=== PATIENT | female | born 1965 | race Caucasian/White ===

== ENCOUNTER → 2017-03-27 | Outpatient (CLI) | payer OTHER, BC ==
--- NOTE | 2017-03-27 22:29 | CONS ---
CONSULTATION This is a very pleasant, 51-year-old female patient. 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 The patient is concerned about sleep apnea. She was diagnosed having sleep apnea, many years back through a sleep center that was done in [facility]. At that time the patient used to weigh around 180 pounds and she underwent bariatric surgery. Back then she was being treated with a CPAP pressure of 11 cm of water and as the patient lost weight the CPAP pressure was dropped down to 7 and then 5 and at one point she was told to have some central events and she ended up quitting the treatment. Note that the patient was able to lose significant amount of weight following her bariatric surgery/gastric sleeve and she was down to 185. Over the years she gradually started gaining weight and she is currently up to 216. Some of the symptoms of obstructive sleep apnea is back and the patient is coming in for a reevaluation. She is snoring and she is having some increased fatigue and tiredness and sleepiness during the day. She is waking up with some dry mouth. Her current [place] score is at 10. She is able to drive back and forth to [place] without having to fall asleep. No history of any motor vehicle accidents because of feeling sleepy or tired. Denies waking up in the middle of the night gasping for air. Occasional palpitation and the patient is currently under investigation with Dr. Singh. The patient is wearing a Holter monitor. She has been given diagnosis of cardiomyopathy and her current ejection fraction of 45%. She also has bronchial asthma under the care of Dr. Quiñones and she was switched to Xopenex regarding her underlying tachycardia and she is on a combination of Flovent and Singulair. PAST MEDICAL HISTORY: 1. Spinal stenosis. Recent spinal lumbar fusion and decompression, this was done at [facility]. 2. Obesity. 3. Previous bariatric surgery/gastric sleeve. Details discussed above. 4. Cardiac arrhythmia/tachycardia under investigation. 5. Cardiomyopathy with ejection fraction 45%. 6. Chronic bronchial asthma. SURGICAL HISTORY: 1. Includes gastric sleeve surgery in 2012. 2. Hysterectomy and appendectomy in 2011. 3. Spinal fusion L4-L5-S1 2016. 4. 1991. DRUG ALLERGIES: NONSTEROIDAL ANTI-INFLAMMATORY AND CIPRO AND DILAUDID SHE ALSO HAS GLUTEN IN [place] ALLERGY MEDICATIONS: Outpatient medication list includes: Flovent 2 puffs twice a day, Flonase singular 10 mg p.o. daily. Xopenex HFA on a p.r.n. basis and vitamin D 5000 units 1 pill daily. SOCIAL HISTORY: Nonsmoker. No history of alcohol. No history of IV drugs. FAMILY HISTORY: Negative for sleep apnea. REVIEW OF SYSTEMS: 12-point review of system was done. Positive findings are mentioned above in the history of present illness. Weight changes have been noted. No sleep paralysis. No hallucinations. No cataplexy. She has some occasional dream like images. However these glove turner to be somewhat dreams upon waking up from bed. She goes to bed around 10:30 pm, wakes up 6:00 am in the morning. She is able to fulfill her job requirements and she does not fall asleep during work or regular meetings. No anxiety. No depression. No heartburn. No panic attacks. She has history of dry mouth with the use of CPAP. No restlessness in lower extremities. PHYSICAL EXAMINATION: BP is 127/75, pulse 85, respirations 81, temperature 98.6 saturation 98% on room air. Weight is 269. Height is 5 0. [place] score 10, neck size 15.5 inches, BMI 42.1. GENERAL APPEARANCE: Calm comfortable. HEENT is atraumatic normocephalic. NECK: Supple. Mallampati class 3. No goiter or neck masses. Slight overbite. LUNGS: Clear to auscultation. HEART: Sounds are regular. Normal S1, S2. No S3. No murmurs. ABDOMEN: Soft, nontender. No organomegaly. EXTREMITIES: No edema. No cyanosis or clubbing. NEUROLOGIC: Alert and oriented x3. No focal neurological deficits. PSYCHIATRIC: Negative for anxiety or depression. IMPRESSION: 1. Obstructive sleep apnea. This is clinically suspected. The patient had significant ITZ and she was treated with CPAP in the past. Following bariatric surgery the patient lost approximately 100 pounds and she was able to get herself off the CPAP. Currently she is coming in for reevaluation knowing that she has gained some weight. Her current BMI is 42, and she is concerned that her sleep apnea is back. 2. Chronic sleepiness [place] score 10. 3. Chronic fatigue. 4. Sinus tachycardia with questionable palpitations under investigation currently wearing a Holter monitor. 5. Congestive heart failure with an EF around 45%. 6. Bronchial asthma. 7. Spinal fusion with decompression for lumbar stenosis. PLAN: 1. Encourage further weight loss. 2. Proceed with a screening polysomnogram to assess for any residual obstructive sleep apnea and treat accordingly. LASHELL / CATARINAN: [id number] /
== END | disposition home or self-care (01) ==
LOC: SLEEP 13:04
PROVIDERS: ATTEND Internal Medicine Critical Care Medicine
DX: G47.33 Obstructive sleep apnea (adult) (pediatric) (principal); G47.10 Hypersomnia, unspecified; R53.82 Chronic fatigue, unspecified; R00.0 Tachycardia, unspecified; I50.9 Heart failure, unspecified; J45.909 Unspecified asthma, uncomplicated; M48.061 Spinal stenosis, lumbar region without neurogenic claudication; E66.9 Obesity, unspecified; Z68.41 Body mass index [BMI] 40.0-44.9, adult; Z98.1 Arthrodesis status; Z79.899 Other long term (current) drug therapy; Z88.1 Allergy status to other antibiotic agents; Z88.5 Allergy status to narcotic agent; Z91.018 Allergy to other foods
CPT/HCPCS: 99211

== ENCOUNTER → 2017-04-06 | Outpatient (CLI) | payer OTHER, BC ==
--- NOTE | 2017-04-18 11:27 | MM ---
Reason for exam: screening (asymptomatic). Last mammogram was performed 1 year and 3 months ago. History: Took hormonal contraceptives for 3 years beginning at age 20. Physical Findings: A clinical breast exam by your physician is recommended on an annual basis and results should be correlated with mammographic findings. MG 3D Screening Mammo W/Cad Bilateral CC and MLO view(s) were taken. Prior study comparison: December 31, 2015, mammogram. March 20, 2011, bilateral digital screening mammo w/CAD. March 08, 2010, bilateral diagnostic digital mammog. There are scattered fibroglandular densities. There is a stable 4mm mass right upper outer quadrant at middle depth back to 2010. No suspicious abnormality. No significant changes when compared with prior studies. ASSESSMENT: Benign, BI-RAD 2 RECOMMENDATION: Routine screening mammogram of both breasts in 1 year.
== END | disposition home or self-care (01) ==
LOC: RADMAMWWP 14:47
PROVIDERS: ATTEND Family Medicine
DX: Z12.31 Encounter for screening mammogram for malignant neoplasm of breast (principal)
CPT/HCPCS: 77063; 77067

== ENCOUNTER 2017-04-16 03:43 | Observation (INO) | payer OTHER, BC ==
[2017-04-16] MEDS ORDERED: IPRATROPIUM-ALBUTEROL 3 ML NEB INHALATION STA (04:06)
[2017-04-16] MEDS ORDERED: ALBUTEROL NEBULIZED 2.5 MG/3 ML INHALATION STA ×3 (04:07→07:01)
--- NOTE | 2017-04-16 04:29 | ED ---
SOB HPI - General Chief Complaint: Shortness of Breath Stated Complaint: ASTHMA Time Seen by Provider: 04/16/17 03:53 Source: patient Mode of arrival: wheelchair Limitations: no limitations - History of Present Illness Initial Comments: This patient is a 51-year-old woman who presents with complaint of cough and dyspnea. She states that about a day ago she started having some upper respiratory symptoms, including rhinorrhea and congestion. She was also having a little bit of cough. Tonight between 10 and 11 she started having worsening of shortness of breath. She states that she tried to take her home inhaled medications and that they weren't giving her much improvement so she presents here for evaluation. Patient denies fever or chills. She is not having chest pain. MD Complaint: shortness of breath, cough Onset/Timin -: hour(s) Severity: moderate Consistency: constant Improves With: nothing Worsens With: coughing Known History Of: asthma Associated Symptoms: cough Treatments Prior to Arrival: bronchodilator - Related Data Home Medications Medication Instructions Recorded Confirmed Cholecalciferol [Vitamin D3] 5,000 unit PO DAILY 04/16/17 04/16/17 Fluticasone Nasal [place] [Flonase 2 spray EA NOSTRIL BID 04/16/17 04/16/17 Nasal [place]] Fluticasone Propionate [Flovent 2 puff INHALATION RT-BID 04/16/17 04/16/17 Hfa 110mcg] Levalbuterol Tartrate [Xopenex Hfa 2 puff INHALATION RT-QID PRN 04/16/17 Inhaler] Montelukast [Singulair] 10 mg PO HS 04/16/17 04/16/17 Allergies Allergy/AdvReac Type Severity Reaction Status Date / Time ciprofloxacin Allergy Itching Verified 04/16/17 07:43 hydromorphone [From Dilaudid] AdvReac Nausea & Verified 04/16/17 07:43 Vomiting NSAIDS (Non-Steroidal AdvReac Abdominal Verified 04/16/17 07:43 Anti-Inflamma Pain shellfish derived AdvReac Nausea & Verified 04/16/17 07:43 Vomiting Review of Systems ROS Statement: Those systems with pertinent positive or pertinent negative responses have been documented in the HPI. ROS Other: All systems not noted in ROS Statement are negative. Constitutional: Denies: fever, chills ENT: Reports: congestion Respiratory: Reports: cough, dyspnea, wheezes. Denies: hemoptysis Cardiovascular: Denies: chest pain, palpitations, dyspnea on exertion, orthopnea , edema, syncope Gastrointestinal: Denies: abdominal pain, nausea, vomiting Neurological: Denies: headache Past Medical History Past Medical History: Asthma, Osteoarthritis (OA) Additional Past Medical History / Comment(s): cardiomyopathy. tachycardia. History of Any Multi-Drug Resistant Organisms: None Reported Past Surgical History: Section, Hysterectomy Additional Past Surgical History / Comment(s): gastric sleeve. spinal fusion. bilateral shoulders. Past Psychological History: Depression Smoking Status: Never smoker Past Alcohol Use History: Occasional Past Drug Use History: None Reported General Exam Limitations: no limitations General appearance: alert, in no apparent distress Head exam: Present: atraumatic, normocephalic Eye exam: Present: normal appearance. Absent: scleral icterus, conjunctival injection ENT exam: Present: normal oropharynx Respiratory exam: Present: respiratory distress (Tachypnea), wheezes. Absent: rales, rhonchi, stridor, accessory muscle use, decreased breath sounds, prolonged expiratory Cardiovascular Exam: Present: regular rate, normal rhythm, normal heart sounds. Absent: systolic murmur, diastolic murmur, rubs, gallop GI/Abdominal exam: Present: soft. Absent: distended, tenderness, guarding, rebound, mass Extremities exam: Present: normal inspection, normal capillary refill. Absent: pedal edema, calf tenderness Back exam: Present: normal inspection. Absent: CVA tenderness (R), CVA tenderness (L) Neurological exam: Present: alert Skin exam: Present: warm, dry, intact, normal color. Absent: rash Course Vital Signs 04/16/17 04/16/17 04/16/17 03:46 04:04 04:14 Temperature 98 F Pulse Rate 90 100 96 Respiratory 36 H Rate Blood Pressure 173/107 O2 Sat by Pulse 100 Oximetry 04/16/17 04/16/17 04/16/17 05:48 06:20 06:25 Temperature Pulse Rate 82 78 84 Respiratory 26 H Rate Blood Pressure 149/77 O2 Sat by Pulse 99 Oximetry 04/16/17 04/16/17 04/16/17 06:28 07:04 07:14 Temperature Pulse Rate 90 88 83 Respiratory 19 Rate Blood Pressure 169/93 O2 Sat by Pulse 99 Oximetry Medical Decision Making - Medical Decision Making This patient is a 51-year-old woman with asthma having an exacerbation. She has had some improvement following treatments but is not near her baseline. It is the shift change and I have paged the [facility] hospitalist group without yet hearing back. Disposition Clinical Impression: Asthma with exacerbation Disposition: ADMITTED IP TO THIS [facility] Condition: Fair Referrals: Radha Mcmillan MD [Primary Care Provider] - 1-2 days
--- NOTE | 2017-04-16 05:41 | XR ---
EXAM: XR Chest, 2 Views CLINICAL HISTORY: ITS.REASON XR Reason: cough TECHNIQUE: Frontal and lateral views of the chest. COMPARISON: None. FINDINGS: Lungs: Unremarkable. The lungs are clear. Pleural space: Unremarkable. No pneumothorax. Heart: Unremarkable. No cardiomegaly. Mediastinum: Unremarkable. Bones/joints: Unremarkable. IMPRESSION: Normal chest x-rays.
[2017-04-16] MEDS ORDERED: predniSONE 20 MG TAB PO STA (05:48)
[2017-04-16] MEDS ORDERED: SODIUM CHLORIDE 0.9% 500 ML IV STA (07:22)
[2017-04-16] MEDS ORDERED: ALBUTEROL NEBULIZED 2.5 MG/3 ML INHALATION PRN (07:50)
[2017-04-16 07:59] LABS: Anisocytosis Slight; Basophils % (A) 0 %; Eosinophils % (A) 0 %; HCT 36.2 % (34.0-46.0); Hypochromasia Marked; Lymphocytes # (A) 1.1 k/uL (1.0-4.8); Lymphocytes % (A) 18 %; MCH 23.5 pg (25.0-35.0); MCHC 30.3 g/dL (31.0-37.0); MCV 77.6 fL (80.0-100.0); Mean Platelet Volume 6.8; Microcytosis Slight; Monocytes # (A) 0.2 k/uL (0-1.0); Monocytes % (A) 3 %; Neutrophils # (A) 4.6 k/uL (1.3-7.7); Neutrophils % (A) 76 %; Platelet Count 211 k/uL (150-450); RBC 4.67 m/uL (3.80-5.40); RDW 16.4 % (11.5-15.5); WBC 6.1 k/uL (3.8-10.6)
[2017-04-16] MEDS ORDERED: IPRATROPIUM-ALBUTEROL 3 ML NEB INHALATION SCH (08:00)
[2017-04-16 08:13] LABS: ALT 19 U/L (9-52); AST 22 U/L (14-36); Albumin 4.5 g/dL (3.5-5.0); Alkaline Phosphatase 100 U/L (38-126); Anion Gap 14 mmol/L; Blood Urea Nitrogen 11 mg/dL (7-17); Calcium 9.8 mg/dL (8.4-10.2); Carbon Dioxide 26 mmol/L (22-30); Chloride 107 mmol/L (98-107); Glucose 111 mg/dL (74-99); Potassium 3.4 mmol/L (3.5-5.1); Sodium 147 mmol/L (137-145); Total Bilirubin 0.2 mg/dL (0.2-1.3); Total Protein 7.7 g/dL (6.3-8.2)
[2017-04-16] MEDS ORDERED: BUDESONIDE 0.5 MG/2 ML NEBU INHALATION SCH (09:00)
[2017-04-16] MEDS ORDERED: POTASSIUM CHLORIDE ER 20 MEQ TAB.ER PO STA (09:39)
[2017-04-16] MEDS: BUDESONIDE 1 MG/2 ML NEBU INHALATION SCH ×2 (09:42→19:48)
--- NOTE | 2017-04-16 10:01 | P.HPIM ---
History of Present Illness H&P Date: 04/16/17 Chief Complaint: shortness of breath Patient is a 51-year-old female with a past medical history of asthma , obesity, tachycardia, and arthritis who presented to the ER with complaints of shortness of breath. In the ER she underwent an extensive evaluation. On arrival she was found to be hypertensive, tachycardic, and tachypnea. Laboratory analysis showed a slightly low potassium of 3.4 and hemoglobin of 11 but was otherwise unremarkable. Chest x-ray revealed no acute process. EKG revealed sinus tachycardia. She was given a dose of prednisone 3 [id number] breathing treatments without significant relief. Therefore she is admitted as observation. Patient seen and examined at bedside. She states that she has had symptoms of a cold with cough, runny nose, stuffy nose for the last 2 days. Last night she woke up and felt tight and wheezy in her chest. She took a dose of her Xopenex without relief and therefore took a dose of albuterol. This still did not provide relief and she took a second inhaler approximately 2 hours later. She then continued to get worsening short of breath and decided to present to the emergency department. She reports that she has a history of palpitations and was recently switched from albuterol to Xopenex inhaler to help with this. She also takes Flovent and Singulair at home. She has been using Flonase as well. She did use some [id number] Sudafed. She has no history of high blood pressure and her blood pressure is usually on the low side. She recently saw Dr. Quiñones on Sunday and did not have any adjustments in her medications and was doing well at that time. She is requesting to see him regarding her asthma. She has been struggling with persistent tachycardia for the last year. She has a history of an ejection fraction of 45% which has since resolved to 60%. She is also following with Dr. Singh and recently had a Holter monitor done and is awaiting results of the new echo. She has not had any other medication changes recently. She does not have a nebulizer at home that she is never needed to use one in the past. She has never been hospitalized for her asthma prior. Review of Systems General: no fever/chills, no rigors, + weight gain, no unusual fatigue Eyes: no noticable visual changes, no loss of vision ENT: + rhinorrhea, + congestion, no sore throat Cardiovascular: no chest pain, + palpitations], no preyncope/syncope, no edema Pulmonary: + shortness of breath, + wheezing, + cough Abdominal: no abdominal pain, no constipation, no diarrhea, no vomiting, no nausea Genitourinary: no dysuria, no urinary frequency, no unusual discharge/odor Neuro: no unusual paresthesias, no unusual paresis/paralysis, no headache Dermatologic: no unusual rashes, no unusual lesions, no unusual changes in nails Hematologic: no hemoptysis, no hematuria, no melena/hematochezia Psychiatric: no changes in mood or behaviors, no changes in sleep pattern Past Medical History Past Medical History: Asthma, Osteoarthritis (OA), Thyroid Disorder Additional Past Medical History / Comment(s): Cardiomyopathy about 1 year ago EF was 45%,then 60%-pt states she has had a recent echo and 24 hour quality assurance monitor body placed, occasional tachycardia especially after eating, treated for influenza a month ago with tamiflu/abx and couple weeks ago had R earache tx with flonase, ITZ with CPAP use in past then lost weight and no longer needed cpap- has PSG scheduled, pt states recent near syncope when she had the flu and with a dental procedure-checked fitbit and heart rate in 50s, thyroid nodules with neg bx. Spinal stenosis. Gluten sensitivity. Vitamin D deficiency. History of Any Multi-Drug Resistant Organisms: None Reported Past Surgical History: Appendectomy, Bariatric Surgery, Section, Hysterectomy, Orthopedic Surgery, Tonsillectomy Additional Past Surgical History / Comment(s): 2012 gastric sleeve, 11/2016 spinal fusion/decompression L4-L5 and S1, bilateral shcoulder arthroscopies, 3 laparotomies d/t pain/ovarian cyst/adhesions, hysterectomy with R oophorectomy, 2 D&Cs after miscarriages. Lipoma removed from left side of back. Cardiac cath. Past Anesthesia/Blood Transfusion Reactions: Motion Sickness, Postoperative Nausea & Vomiting (PONV) Additional Psychological History / Comment(s): Pt resides with her spouse. She is independent. Smoking Status: Never smoker Past Alcohol Use History: Rare Past Drug Use History: None Reported - Past Family History Father Family Medical History: Cancer, Diabetes Mellitus, Renal Disease Additional Family Medical History / Comment(s): Father is from kidney failure d/t diabetes. Mother Family Medical History: Coronary Artery Disease (CAD), Diabetes Mellitus, Thyroid Disorder Additional Family Medical History / Comment(s): Mother has had multiple MIs with first one at about age 72 yrs. She has had CABG and has 5 cardiac stents. Medications and Allergies Home Medications Medication Instructions Recorded Confirmed Type Cholecalciferol [Vitamin D3] 5,000 unit PO DAILY 04/16/17 04/16/17 History Fluticasone Nasal [place] [Flonase 2 spray EA NOSTRIL BID 04/16/17 04/16/17 History Nasal [place]] Fluticasone Propionate [Flovent 2 puff INHALATION RT-BID 04/16/17 04/16/17 History Hfa 110mcg] Levalbuterol Tartrate [Xopenex Hfa 2 puff INHALATION RT-QID PRN 04/16/17 History Inhaler] Montelukast [Singulair] 10 mg PO HS 04/16/17 04/16/17 History Allergies Allergy/AdvReac Type Severity Reaction Status Date / Time ciprofloxacin Allergy Itching Verified 04/16/17 07:43 hydromorphone [From Dilaudid] AdvReac Nausea & Verified 04/16/17 07:43 Vomiting NSAIDS (Non-Steroidal AdvReac Abdominal Verified 04/16/17 07:43 Anti-Inflamma Pain shellfish derived AdvReac Nausea & Verified 04/16/17 07:43 Vomiting Physical Exam Osteopathic Statement: *. No significant issues noted on an osteopathic structural exam other than those noted in the History and Physical/Consult. Vitals: Vital Signs Temp Pulse Resp BP Pulse Ox 04/16/17 09:43 86 04/16/17 09:00 98.2 F 83 20 118/62 98 04/16/17 08:00 89 20 154/88 99 04/16/17 07:14 83 04/16/17 07:04 88 04/16/17 06:28 90 19 169/93 99 04/16/17 06:25 84 04/16/17 06:20 78 04/16/17 05:48 82 26 H 149/77 99 04/16/17 04:14 96 04/16/17 04:04 100 04/16/17 03:46 98 F 90 36 H 173/107 100 Intake and Output 04/15/17 04/16/17 04/16/17 22:59 06:59 14:59 Other: Weight 97.522 kg General: non toxic, mild distress, appears at stated age, obese Derm: no unusual rashes/lesions no unusual ecchymoses, warm, dry Head: atraumatic, normocephalic, symmetric Eyes: EOMI, no lid lag, anicteric sclera, pupils equal round reactive to light ENT: Nose and ears atraumatic, no thrush, no pharyngeal erythema Neck: No thyromegaly, no cervical lymphadenopathy, trachea midline, supple Mouth: no lip lesion, mucus membranes moist Cardiovascular: S1S2 reg, no murmur, positive posterior tibial pulse bilateral, no edema, capillary refill less than 2 seconds Lungs: Faint wheezes bilaterally, no rhonchi, no rales , no accessory muscle use Abdominal: soft, nontender to palpation, no guarding, no appreciable organomegaly, normal bowel sounds Ext: no gross muscle atrophy, muscle strength grossly intact all 4 extremities , no contractures, Neuro: CN II-XI grossly intact, light touch intact all 4 extremities Psych: Alert, oriented, appropriate affect Results CBC & Chem 7: 04/16/17 07:40 04/16/17 07:40 Labs: Abnormal Lab Results - Last 24 Hours (Table) 04/16/17 04/16/17 04/16/17 Range/Units 07:40 07:40 07:40 Hgb 11.0 L (11.4-16.0) gm/dL MCV 77.6 L (80.0-100.0) fL MCH 23.5 L (25.0-35.0) pg MCHC 30.3 L (31.0-37.0) g/dL RDW 16.4 H (11.5-15.5) % D-Dimer 0.74 H (<0.60) mg/L FEU Sodium 147 H (137-145) mmol/L Potassium 3.4 L (3.5-5.1) mmol/L Glucose 111 H (74-99) mg/dL Chest x-ray: report reviewed Thrombosis Risk Factor Assmnt - DVT/VTE Prophylaxis DVT/VTE Prophylaxis: Low risk, early ambulation encouraged - Choose All That Apply Any of the Below Risk Factors Present?: Yes Each Factor Represents 1 point: Age 41-60 years, Obesity (BMI >25) Other Risk Factors: No Other congenital or acquired thrombophilia - If yes, enter type in comment: No Thrombosis Risk Factor Assessment Total Risk Factor Score: 2 Thrombosis Risk Factor Assessment Level: Low Risk Assessment and Plan Assessment: Acute exacerbation of asthma -Scheduled and when necessary albuterol -Change Flovent to nebulized budesonide during hospitalization -Continue with Singulair -Flonase -Consult pulmonary -Does not appear to have an indication for antibiotic at this time with minimally productive cough for 2 days duration Hypernatremia secondary to dehydration -IV fluids -Repeat basic metabolic profile in a.m. History of tachycardia -Telemetry monitoring with albuterol used -Continue outpatient follow-up with Dr. Singh Hypokalemia -Replacement -Repeat in a.m. Microcytic anemia -Check iron studies -Further outpatient follow-up Morbid obesity -Structured outpatient weight loss History of obstructive sleep apnea -Has PSG schedule as outpatient with Dr. Johnson Gluten sensitivity -Gluten-free diet Surrogate decision-maker: , Ruben CODE STATUS: Full DVT prophylaxis: Early ambulation Discussed with: Patient, Nursing, ED physician Anticipated discharge: [address]: Home A total of 50 minutes was spent on the care of this complex patient more than 50 % of the time was spent in counseling and care coordination.
[2017-04-16 11:06] VITALS: RESP 18
[2017-04-16] MEDS: SODIUM CHLORIDE 0.9% 1,000 ML IV SCH ×2 (11:09→20:17)
[2017-04-16] MEDS: FLUTICASONE 50MCG/SPRAY NASAL 16GM EA NOSTRIL SCH ×2 (11:09→20:17)
[2017-04-16] MEDS ORDERED: CHOLECALCIFEROL 1,000 UNIT TAB PO SCH (12:00)
[2017-04-16] MEDS: ALBUTEROL NEBULIZED 2.5 MG/3 ML INHALATION SCH ×3 (13:56→19:48)
[2017-04-16] MEDS ORDERED: PANTOPRAZOLE 40 MG TABLET PO STA (15:48)
[2017-04-16 15:56] LABS: Iron Saturation 2.52 (12.00-45.00)
--- NOTE | 2017-04-16 16:45 | P.CNPUL ---
History of Present Illness Consult date: 04/16/17 Requesting physician: Kierra Alvarez Reason for consult: dyspnea, cough, chest pain, asthma Chief complaint: Dyspnea, cough, chest tightness, chest congestion History of present illness: Adilene is a 51-year-old white female patient of Dr. Radha Mcmillan the presented to the emergency department with a complaint of increasing dyspnea, chest congestion, chest tightness despite her using her rescue inhaler multiple times at home. She saw Dr. Quiñones in the office on Sunday for a regular checkup at which time she was doing good, without any active pulmonary complaints. Patient's Symbicort have been switched over to Flovent HFA 2 puffs twice a day related to her tachycardia, and mouth and throat irritation from the Symbicort. Patient is also on Singulair 10 mg at bedtime, and Xopenex HFA inhaler on as- needed basis. Patient states she woke up on Sunday night after she felt she was getting a cold. On Sunday morning her symptoms had progressed and she started getting increased chest congestion. On Sunday night she woke up at 11 PM with chest tightness, increased chest congestion, cough, and increasing dyspnea. She denied any fever, or chills. Her rescue inhaler did not give her much relief, she had also been taking [id number] Sudafed for nasal congestion. In the emergency department patient was tachycardic with a heart rate of 100 BPM, hypertensive with BP of 173/107 and tachypnea with respiratory rate of 36. Chest x-ray revealed no acute process. EKG showed sinus tachycardia. Lab work showed normal white count of 6.1, hemoglobin of 11.0, d- dimer of 0.74, serum sodium of 147, serum potassium is 3.4, BUN of 11, creatinine is 0.68, troponin and BNP were within normal limits. Her other medical history includes cardiomyopathy with an ejection fraction of 40-45%, obstructive sleep apnea with past use of CPAP, gastric sleeve bariatric surgery , spinal stenosis, cardiac arrhythmia/tachycardia under investigation. Patient was started on prednisone 60 mg daily, Pulmicort, albuterol, she was given 1 L of 0.9 normal saline IV bolus and was admitted to the observation unit. Review of Systems All systems: negative Constitutional: Denies chills, Denies fever Eyes: denies blurred vision, denies pain Ears, nose, mouth and throat: Denies headache, Denies sore throat Cardiovascular: Denies chest pain, Denies shortness of breath Respiratory: Denies cough Gastrointestinal: Denies abdominal pain, Denies diarrhea, Denies nausea, Denies vomiting Genitourinary: Denies dysuria, Denies hematuria Musculoskeletal: Denies myalgias Integumentary: Denies pruritus, Denies rash Neurological: Denies numbness, Denies weakness Psychiatric: Denies anxiety, Denies depression Endocrine: Denies fatigue, Denies weight change Past Medical History Past Medical History: Asthma, Osteoarthritis (OA), Thyroid Disorder Additional Past Medical History / Comment(s): Cardiomyopathy about 1 year ago EF was 45%,then 60%-pt states she has had a recent echo and 24 hour site monitor placed, occasional tachycardia especially after eating, treated for influenza a month ago with tamiflu/abx and couple weeks ago had R earache tx with flonase, ITZ with CPAP use in past then lost weight and no longer needed cpap- has PSG scheduled, pt states recent near syncope when she had the flu and with a dental procedure-checked fitbit and heart rate in 50s, thyroid nodules with neg bx. Spinal stenosis. Gluten sensitivity. Vitamin D deficiency. History of Any Multi-Drug Resistant Organisms: None Reported Past Surgical History: Appendectomy, Bariatric Surgery, Section, Hysterectomy, Orthopedic Surgery, Tonsillectomy Additional Past Surgical History / Comment(s): 2012 gastric sleeve, 11/2016 spinal fusion/decompression L4-L5 and S1, bilateral shcoulder arthroscopies, 3 laparotomies d/t pain/ovarian cyst/adhesions, hysterectomy with R oophorectomy, 2 D&Cs after miscarriages. Lipoma removed from left side of back. Cardiac cath. Past Anesthesia/Blood Transfusion Reactions: Motion Sickness, Postoperative Nausea & Vomiting (PONV) Additional Psychological History / Comment(s): Pt resides with her spouse. She is independent. Smoking Status: Never smoker Past Alcohol Use History: Rare Past Drug Use History: None Reported - Past Family History Father Family Medical History: Cancer, Diabetes Mellitus, Renal Disease Additional Family Medical History / Comment(s): Father is from kidney failure d/t diabetes. Mother Family Medical History: Coronary Artery Disease (CAD), Diabetes Mellitus, Thyroid Disorder Additional Family Medical History / Comment(s): Mother has had multiple MIs with first one at about age 72 yrs. She has had CABG and has 5 cardiac stents. Medications and Allergies Home Medications Medication Instructions Recorded Confirmed Type Cholecalciferol [Vitamin D3] 5,000 unit PO DAILY 04/16/17 04/16/17 History Fluticasone Nasal [place] [Flonase 2 spray EA NOSTRIL BID 04/16/17 04/16/17 History Nasal [place]] Fluticasone Propionate [Flovent 2 puff INHALATION RT-BID 04/16/17 04/16/17 History Hfa 110mcg] Levalbuterol Tartrate [Xopenex Hfa 2 puff INHALATION RT-QID PRN 04/16/17 History Inhaler] Montelukast [Singulair] 10 mg PO HS 04/16/17 04/16/17 History Allergies Allergy/AdvReac Type Severity Reaction Status Date / Time ciprofloxacin Allergy Itching Verified 04/16/17 07:43 hydromorphone [From Dilaudid] AdvReac Nausea & Verified 04/16/17 07:43 Vomiting NSAIDS (Non-Steroidal AdvReac Abdominal Verified 04/16/17 07:43 Anti-Inflamma Pain shellfish derived AdvReac Nausea & Verified 04/16/17 07:43 Vomiting Physical Exam Vitals: Vital Signs Temp Pulse Pulse Resp BP BP Pulse Ox 04/16/17 15:41 98.3 F 108 H 18 135/64 96 04/16/17 14:03 85 04/16/17 13:57 85 04/16/17 11:05 97.7 F 107 H 18 153/85 98 04/16/17 10:02 88 04/16/17 10:00 98.2 F 100 20 120/55 98 04/16/17 09:43 86 04/16/17 09:00 98.2 F 83 20 118/62 98 04/16/17 08:00 89 20 154/88 99 04/16/17 07:14 83 04/16/17 07:04 88 04/16/17 06:28 90 19 169/93 99 04/16/17 06:25 84 04/16/17 06:20 78 04/16/17 05:48 82 26 H 149/77 99 04/16/17 04:14 96 04/16/17 04:04 100 02/19/18 03:46 98 F 90 36 H 173/107 100 Intake and Output 04/16/17 04/16/17 04/16/17 06:59 14:59 22:59 Other: Weight 97.522 kg GENERAL EXAM: Alert, pleasant, 51-year-old obese white female, comfortable in no apparent distress. HEAD: Normocephalic/atraumatic. EYES: Normal reaction of pupils, equal size. Conjunctiva pink, sclera white. NOSE: Clear with pink turbinates. THROAT: No erythema or exudates. NECK: No masses, no JVD, no thyroid enlargement, no adenopathy. CHEST: No chest wall deformity. Symmetrical expansion. LUNGS: Equal air entry with no crackles, wheeze, rhonchi or dullness. CVS: Regular rate and rhythm, normal S1 and S2, slightly tachycardic with a rate of about 100 BPM, no gallops, no murmurs, no rubs ABDOMEN: Soft, nontender. No hepatosplenomegaly, normal bowel sounds, no guarding or rigidity. EXTREMITIES: No clubbing, no edema, no cyanosis, 2+ pulses and upper and lower extremities. MUSCULOSKELETAL: Muscle strength and tone normal. SPINE: No scoliosis or deformity SKIN: No rashes CENTRAL NERVOUS SYSTEM: Alert and oriented -3. No focal deficits, tone is normal in all 4 extremities. PSYCHIATRIC: Alert and oriented -3. Appropriate affect. Intact judgment and insight. Results - Laboratory Findings CBC and BMP: 04/16/17 07:40 04/16/17 07:40 PT/INR, D-dimer D-Dimer 0.74 mg/L FEU (<0.60) H 04/16/17 07:40 Abnormal lab findings: Abnormal Labs 04/16/17 04/16/17 04/16/17 07:40 07:40 07:40 Hgb 11.0 L MCV 77.6 L MCH 23.5 L MCHC 30.3 L RDW 16.4 H D-Dimer 0.74 H Sodium 147 H Potassium 3.4 L Glucose 111 H - Diagnostic Findings Chest x-ray: report reviewed Additional studies: Twelve-lead EKG reviewed Assessment and Plan Plan: Assessment: #1. Acute exacerbation of mild persistent asthma #2. GERD/reflux #3. Mild hypernatremia secondary to dehydration #4. Hypokalemia, possibly related to dehydration #5. Obstructive sleep apnea, used to be on CPAP therapy prior to the gastric sleeve surgery, is awaiting reevaluation with a repeat PSG on outpatient basis #6. Morbid obesity, status post gastric sleeve surgery in 2013 #7. Microcytic anemia, possibly iron deficiency #8. Cardiomyopathy, with ejection fraction of 40-45%. #9. Cardiac arrhythmia/tachycardia under investigation #10. Spinal stenosis, status post spinal fusion of L4-L5-S1 in 2017 #11. History of thyroid nodules with negative biopsies Plan: Continue current medical treatment, continue Pulmicort, albuterol nebulized treatments. Continue Singulair, continue prednisone. Patient has already reporting significant improvement since her admission in terms of her dyspnea and chest tightness. On sounds reveal good air entry bilaterally, no wheezes, or rhonchi noted. From pulmonary standpoint patient can be discharged home tomorrow on prednisone taper, her home inhalers. She is requesting a home nebulizer, which is reasonable. Her electrolytes are being corrected per protocol. She is tolerating oral intake. We will add omeprazole for her GERD symptoms. She will need follow-up with Dr. Quiñones in the office in one week I performed a history & physical examination of the patient and discussed their management with my nurse practitioner, Amanda Stover. I reviewed the nurse practitioner's note and agree with the documented findings and plan of care. Lung sounds are clear. The findings and the impression was discussed with the patient. I attest to the documentation by the nurse practitioner. Time with Patient: Greater than 30
[2017-04-16] MEDS ORDERED: ACETAMINOPHEN TAB 325 MG TAB PO PRN (20:07)
[2017-04-16] MEDS ORDERED: MONTELUKAST 10 MG TAB PO SCH (21:00)
[2017-04-17] MEDS: SODIUM CHLORIDE 0.9% 1,000 ML IV SCH (06:04)
[2017-04-17] MEDS: ALBUTEROL NEBULIZED 2.5 MG/3 ML INHALATION SCH ×2 (07:11→11:26)
[2017-04-17] MEDS: BUDESONIDE 1 MG/2 ML NEBU INHALATION SCH (07:17)
[2017-04-17] MEDS ORDERED: oxyCODONE-APAP 5-325MG 1 EACH TAB PO PRN (07:54)
[2017-04-17] MEDS: FLUTICASONE 50MCG/SPRAY NASAL 16GM EA NOSTRIL SCH (08:17)
[2017-04-17] MEDS ORDERED: PANTOPRAZOLE 40 MG TABLET PO SCH (08:30)
[2017-04-17 08:47] VITALS: BP 124/83; TEMP 97.7
[2017-04-17] MEDS ORDERED: predniSONE 20 MG TAB PO SCH (09:00)
--- NOTE | 2017-04-17 09:54 | P.PN ---
Subjective Progress Note Date: 04/17/17 Principal diagnosis: Acute exacerbation of mild persistent asthma Adilene is a 51-year-old white female patient of Dr. Radha Mcmillan the presented to the emergency department with a complaint of increasing dyspnea, chest congestion, chest tightness despite her using her rescue inhaler multiple times at home. She saw Dr. Quiñones in the office on Sunday for a regular checkup at which time she was doing good, without any active pulmonary complaints. Patient's Symbicort have been switched over to Flovent HFA 2 puffs twice a day related to her tachycardia, and mouth and throat irritation from the Symbicort. Patient is also on Singulair 10 mg at bedtime, and Xopenex HFA inhaler on as- needed basis. Patient states she woke up on Sunday night after she felt she was getting a cold. On Sunday morning her symptoms had progressed and she started getting increased chest congestion. On Sunday night she woke up at 11 PM with chest tightness, increased chest congestion, cough, and increasing dyspnea. She denied any fever, or chills. Her rescue inhaler did not give her much relief, she had also been taking [id number] Sudafed for nasal congestion. In the emergency department patient was tachycardic with a heart rate of 100 BPM, hypertensive with BP of 173/107 and tachypnea with respiratory rate of 36. Chest x-ray revealed no acute process. EKG showed sinus tachycardia. Lab work showed normal white count of 6.1, hemoglobin of 11.0, d- dimer of 0.74, serum sodium of 147, serum potassium is 3.4, BUN of 11, creatinine is 0.68, troponin and BNP were within normal limits. Her other medical history includes cardiomyopathy with an ejection fraction of 40-45%, obstructive sleep apnea with past use of CPAP, gastric sleeve bariatric surgery , spinal stenosis, cardiac arrhythmia/tachycardia under investigation. Patient was started on prednisone 60 mg daily, Pulmicort, albuterol, she was given 1 L of 0.9 normal saline IV bolus and was admitted to the observation unit. On 04/17/2017 patient seen again. She is doing better, less chest tightness, less dyspnea. Lung sounds are clear to auscultation. No wheezes or rhonchi noted. Vital signs are stable, patient is afebrile. She has an occasional productive cough with production of white sputum. No acute events overnight. From pulmonary standpoint patient is stable for discharge home today. Objective - Vital Signs Vital signs: Vital Signs Temp 97.7 F 04/17/17 08:00 Pulse 83 04/17/17 08:00 Resp 18 04/17/17 08:00 BP 124/83 04/17/17 08:00 Pulse Ox 96 04/17/17 08:00 Intake & Output 04/16/17 04/17/17 04/17/17 18:59 06:59 18:59 Intake Total 222 Balance 222 Intake: Oral 222 Other: Voiding Method Toilet - Exam GENERAL EXAM: Alert, pleasant, 51-year-old obese white female, comfortable in no apparent distress. HEAD: Normocephalic/atraumatic. EYES: Normal reaction of pupils, equal size. Conjunctiva pink, sclera white. NOSE: Clear with pink turbinates. THROAT: No erythema or exudates. NECK: No masses, no JVD, no thyroid enlargement, no adenopathy. CHEST: No chest wall deformity. Symmetrical expansion. LUNGS: Equal air entry with no crackles, wheeze, rhonchi or dullness. CVS: Regular rate and rhythm, normal S1 and S2, slightly tachycardic with a rate of about 100 BPM, no gallops, no murmurs, no rubs ABDOMEN: Soft, nontender. No hepatosplenomegaly, normal bowel sounds, no guarding or rigidity. EXTREMITIES: No clubbing, no edema, no cyanosis, 2+ pulses and upper and lower extremities. MUSCULOSKELETAL: Muscle strength and tone normal. SPINE: No scoliosis or deformity SKIN: No rashes CENTRAL NERVOUS SYSTEM: Alert and oriented -3. No focal deficits, tone is normal in all 4 extremities. PSYCHIATRIC: Alert and oriented -3. Appropriate affect. Intact judgment and insight. - Labs CBC & Chem 7: 04/16/17 07:40 04/16/17 07:40 Labs: Abnormal Lab Results - Last 24 Hours (Table) 04/16/17 Range/Units 07:40 Iron 10 L (50-170) ug/dL Iron Saturation 2.52 L (12.00-45.00) Ferritin 6.1 L (10.0-291.0) ng/mL Assessment and Plan Plan: Assessment: #1. Acute exacerbation of mild persistent asthma #2. GERD/reflux #3. Mild hypernatremia secondary to dehydration #4. Hypokalemia, possibly related to dehydration #5. Obstructive sleep apnea, used to be on CPAP therapy prior to the gastric sleeve surgery, is awaiting reevaluation with a repeat PSG on outpatient basis #6. Morbid obesity, status post gastric sleeve surgery in 2013 #7. Microcytic anemia, possibly iron deficiency #8. Cardiomyopathy, with ejection fraction of 40-45%. #9. Cardiac arrhythmia/tachycardia under investigation #10. Spinal stenosis, status post spinal fusion of L4-L5-S1 in 2017 #11. History of thyroid nodules with negative biopsies Plan: Patient is improving, reports less dyspnea, less chest congestion, still has occasional productive cough with small amount of white sputum. Vital signs are stable, lung sounds are clear. From pulmonary standpoint she is stable for discharge home today, on prednisone taper, albuterol, and her maintenance inhalers and medications. Follow-up with Dr. Quiñones in the office in 7-10 days. I performed a history & physical examination of the patient and discussed their management with my nurse practitioner, Amanda Stover. I reviewed the nurse practitioner's note and agree with the documented findings and plan of care. Lung sounds are clear. The findings and the impression was discussed with the patient. I attest to the documentation by the nurse practitioner. Time with Patient: Less than 30
[2017-04-17 11:38] VITALS: PULSE 84
[2017-04-17] MEDS ORDERED: TOBRAMYCIN 0.3% OPHTH DROPS 5 ML BTL RIGHT EYE SCH (12:00)
--- NOTE | 2017-04-17 13:12 | P.DS ---
Providers Date of admission: 04/16/17 07:50 Expected date of discharge: 04/17/17 Attending physician: Brook Song MD Consults: 04/16/17 09:40 Consult Physician Routine Consulting Provider: Robert Quiñones Consult Reason/Comments: asthma exacerbation, established clinic patient request Do you want consulting provider notified?: Yes Primary care physician: Radha Mcmillan MD - Discharge Diagnosis(es) (1) Asthma with exacerbation Current Visit: Yes Status: Acute (2) Tachycardia Current Visit: Yes Status: Chronic (3) Hypernatremia Current Visit: Yes Status: Acute (4) Dehydration Current Visit: Yes Status: Acute (5) Hypokalemia Current Visit: Yes Status: Acute (6) Morbid obesity Current Visit: Yes Status: Chronic (7) Microcytic anemia Current Visit: Yes Status: Chronic (8) ITZ (obstructive sleep apnea) Current Visit: Yes Status: Chronic (9) Conjunctivitis Current Visit: Yes Status: Acute Hospital Course: Patient is a 51-year-old female with a past medical history of asthma , obesity, tachycardia, and arthritis who presented to the ER with complaints of shortness of breath. In the ER she underwent an extensive evaluation. On arrival she was found to be hypertensive, tachycardic, and tachypnea. Laboratory analysis showed a slightly low potassium of 3.4 and hemoglobin of 11 but was otherwise unremarkable. Chest x-ray revealed no acute process. EKG revealed sinus tachycardia. She was given a dose of prednisone 3 [id number] breathing treatments without significant relief. Therefore she was admitted as observation. She was given a dose of potassium. Her Flovent switched over to nebulized budesonide, she was maintained on steroid, she was given albuterol every 4 hours. She was seen by Dr. Hager for pulmonary. By the morning after admission she had significant improvement in her symptoms. She was determined stable for discharge home on nebulized albuterol, prednisone, Flovent, and continued Flonase. We did job a TIBC and ferritin level secondary to her anemia which results were pending at time for discharge. She'll follow up with pulmonary in 1 week and will follow-up with Dr. Mcmillan in 3-5 days. She was also noted to have some purulent drainage from her right eye and was started on tobramycin eyedrops for conjunctivitis. Patient seen and examined at bedside. Breathing is much improved, right side itching and drainage. Still feeling fatigued. staying off work through Sunday to use nebulized breathing treatments around the clock. Vital signs reviewed and stable. General: non toxic, no distress, appears at stated age Derm: warm, dry Head: atraumatic, normocephalic, symmetric Eyes: EOMI, no lid lag, anicteric sclera, conjunctival injection or with reddening of lower lid on the right and purulent drainage noted Mouth: no lip lesion, mucus membranes moist Cardiovascular: S1S2 reg, no murmur, positive posterior tibial pulse bilateral, Lungs: Decreased breath sounds bilateral bases, no rhonchi, no rales , no accessory muscle use Abdominal: soft, nontender to palpation, no guarding, no appreciable organomegaly Ext: no gross muscle atrophy, no edema, no contractures Neuro: CN II-XI grossly intact, no focal neuro deficits Psych: Alert, oriented, appropriate affect A total of 35 minutes of time were spent preparing this complex discharge summary . Patient Condition at Discharge: Stable Plan - Discharge Summary Discharge Rx Participant: No New Discharge Prescriptions: New Albuterol Nebulized [Ventolin Nebulized] 2.5 mg INHALATION Q4H PRN #100 vial PRN Reason: Wheezing Omeprazole 40 mg PO DAILY #30 capsule. oxyCODONE-APAP 5-325MG [Percocet 5-325 mg] 1 each PO Q6HR PRN #15 tab PRN Reason: Pain predniSONE 0 mg PO DIRECTED #26 tab Tobramycin 0.3% Ophth Soln [Tobrex 0.3% Ophth Soln] 2 drops RIGHT EYE Q6HR 5 Days #1 bottle Continue Cholecalciferol [Vitamin D3] 5,000 unit PO DAILY Levalbuterol Tartrate [Xopenex Hfa Inhaler] 2 puff INHALATION RT-QID PRN PRN Reason: Shortness Of Breath Montelukast [Singulair] 10 mg PO HS Fluticasone Propionate [Flovent Hfa 110mcg] 2 puff INHALATION RT-BID Fluticasone Nasal [place] [Flonase Nasal [place]] 2 spray EA NOSTRIL BID #1 bottle Discharge Medication List Cholecalciferol [Vitamin D3] 5,000 unit PO DAILY 04/16/17 [History] Fluticasone Propionate [Flovent Hfa 110mcg] 2 puff INHALATION RT-BID 04/16/17 [ History] Levalbuterol Tartrate [Xopenex Hfa Inhaler] 2 puff INHALATION RT-QID PRN [History] Montelukast [Singulair] 10 mg PO HS 04/16/17 [History] Albuterol Nebulized [Ventolin Nebulized] 2.5 mg INHALATION Q4H PRN #100 vial [Rx] Fluticasone Nasal [place] [Flonase Nasal [place]] 2 spray EA NOSTRIL BID #1 bottle 04/17/17 [Rx] Omeprazole 40 mg PO DAILY #30 capsule. 04/17/17 [Rx] Tobramycin 0.3% Ophth Soln [Tobrex 0.3% Ophth Soln] 2 drops RIGHT EYE Q6HR 5 Days #1 bottle 04/17/17 [Rx] oxyCODONE-APAP 5-325MG [Percocet 5-325 mg] 1 each PO Q6HR PRN #15 tab 04/17/17 [ Rx] predniSONE 0 mg PO DIRECTED #26 tab 04/17/17 [Rx] Follow up Appointment(s)/Referral(s): Radha Mcmillan MD [Primary Care Provider] - 1-2 days Robert Quiñones DO [Doctor of Osteopathic Medicine] - 1 Week Activity/Diet/Wound Care/Special Instructions: Regular diet Activity as tolerated For the next 3 days take your albuterol nebulizer every 4 hours, then you can [place] to every 4 hours as needed Discharge/Stand Alone Forms: Work/School Release Discharge Disposition: HOME SELF-CARE Pending Studies Pending Results: Iron, TIBC, ferritin levels
== END 2017-04-17 14:00 | disposition home or self-care (01) ==
LOC: EC 03:43 → 3OBS 07:50
PROVIDERS: ADMIT Internal Medicine; ATTEND Internal Medicine
DX: J45.31 Mild persistent asthma with (acute) exacerbation (principal); R00.0 Tachycardia, unspecified; D50.9 Iron deficiency anemia, unspecified; E86.0 Dehydration; E87.0 Hyperosmolality and hypernatremia; E87.6 Hypokalemia; H10.9 Unspecified conjunctivitis; I42.9 Cardiomyopathy, unspecified; E55.9 Vitamin D deficiency, unspecified; M19.90 Unspecified osteoarthritis, unspecified site; F32.9 Major depressive disorder, single episode, unspecified; G47.33 Obstructive sleep apnea (adult) (pediatric); E04.2 Nontoxic multinodular goiter; R03.0 Elevated blood-pressure reading, without diagnosis of hypertension; E66.01 Morbid (severe) obesity due to excess calories; Z68.25 Body mass index [BMI] 25.0-25.9, adult; K90.41 Non-celiac gluten sensitivity; K21.9 Gastro-esophageal reflux disease without esophagitis; Z79.51 Long term (current) use of inhaled steroids; Z79.899 Other long term (current) drug therapy; Z88.1 Allergy status to other antibiotic agents; Z88.5 Allergy status to narcotic agent; Z88.6 Allergy status to analgesic agent; Z91.013 Allergy to seafood; Z98.1 Arthrodesis status; Z98.84 Bariatric surgery status; Z83.3 Family history of diabetes mellitus; Z84.1 Family history of disorders of kidney and ureter; Z83.49 Family history of other endocrine, nutritional and metabolic diseases; Z80.9 Family history of malignant neoplasm, unspecified; Z82.49 Family history of ischemic heart disease and other diseases of the circulatory system
CPT/HCPCS: 99285 ×2; 96360; 96361; 36415; 94640 ×4; 94760; 93005; 85379; 83880; 80053; 82728; 83540; 83550; 84484; 85025; 71046; G0378 ×2; J7512 ×2

== ENCOUNTER → 2017-05-14 | Outpatient (CLI) | payer OTHER, BC ==
[2017-05-14 07:15] LABS: Anisocytosis Slight; Basophils % (A) 0 %; Eosinophils # (A) 0.1 k/uL (0-0.7); Eosinophils % (A) 2 %; HCT 38.9 % (34.0-46.0); HGB 12.3 gm/dL (11.4-16.0); Hypochromasia Slight; Lymphocytes # (A) 1.5 k/uL (1.0-4.8); Lymphocytes % (A) 20 %; MCH 24.7 pg (25.0-35.0); MCHC 31.7 g/dL (31.0-37.0); Mean Platelet Volume 7.6; Microcytosis Slight; Monocytes # (A) 0.3 k/uL (0-1.0); Monocytes % (A) 4 %; Neutrophils # (A) 5.2 k/uL (1.3-7.7); Neutrophils % (A) 71 %; Platelet Count 203 k/uL (150-450); RBC 4.99 m/uL (3.80-5.40); RDW 17.2 % (11.5-15.5); WBC 7.3 k/uL (3.8-10.6)
[2017-05-14 07:44] LABS: Anion Gap 12 mmol/L; Blood Urea Nitrogen 14 mg/dL (7-17); Calcium 9.7 mg/dL (8.4-10.2); Carbon Dioxide 27 mmol/L (22-30); Chloride 105 mmol/L (98-107); Glucose 91 mg/dL (74-99); Potassium 4.1 mmol/L (3.5-5.1); Sodium 144 mmol/L (137-145)
[2017-05-14 15:59] LABS: Iron Saturation 20.37 (12.00-45.00)
[2017-05-14 16:33] LABS: Hemoglobin A1C 5.2 % (4.0-6.0)
== END | disposition home or self-care (01) ==
LOC: LABWHC1 06:38
PROVIDERS: ATTEND Family Medicine
DX: E86.0 Dehydration (principal); D50.9 Iron deficiency anemia, unspecified; R73.9 Hyperglycemia, unspecified
CPT/HCPCS: 36415; 80048; 83036; 83540; 83550; 85025

== ENCOUNTER → 2017-08-14 | Outpatient (CLI) | payer OTHER, BC ==
--- NOTE | 2017-08-14 18:50 | PN ---
PROGRESS NOTE This is a 52-year-old female patient diagnosed having obstructive sleep apnea. She is coming in for a compliancy check. The patient had an AHI of 14. Currently she is on CPAP at a pressure of 8 cm of water. Her treatment is extremely successful and the patient is benefitting from the treatment. She is utilizing her CPAP every night. Her CPAP use for more than 4 hours is 24 out of 30. Average CPAP use is around 6.5 hours per night. Leak factor is zero and her AHI while on treatment is down to 1.9. Weight has been stable. She is waking up much more refreshed and alert during the day and she is much more comfortable while on CPAP treatment. She is using the Airtouch full-face mask and she wants to continue with the same setup at the same pressure setting. Her asthma is currently inactive and stable. No palpitations. No chest pain or shortness of breath. REVIEW OF SYSTEMS: Twelve-point review of systems was done. No major hypersomnia or sleepiness. No tiredness or fatigue during the day. No palpitations. No headaches. No shortness of breath. No angina. No cardiac arrhythmias. Otherwise review of systems is negative. Her Ludowici score is 11. PHYSICAL EXAMINATION: HER CURRENT VITALS: BP is 101/65, pulse 76, respirations 16, temperature 97.2. Weight is 225. Saturation 99% on room air. GENERAL APPEARANCE: Calm, comfortable. Head is atraumatic, normocephalic. NECK: Supple. There is no JVD. No goiter or neck masses. LUNGS: Diminished breath sounds bilaterally; otherwise clear. HEART: Heart sounds are regular rate and rhythm. Normal S1, S2. No S3, S4. No murmurs. ABDOMEN: Soft, nontender. No organomegaly. EXTREMITIES: No edema. No cyanosis or clubbing. NEUROLOGIC: Patient is alert and oriented x3. There is no focal neurological deficit. PSYCHIATRIC: Negative for anxiety or depression. IMPRESSION: 1. Obstructive sleep apnea, symptomatic, with an apnea/hypopnea index of 14, worse during REM. Currently the patient is on successful treatment utilizing a pressure of 8 cm of water. 2. Obesity; body mass index of 42. 3. Hypersomnia, improved with CPAP therapy. 4. Congestive heart failure with an ejection fraction of around 45%, well compensated. 5. Bronchial asthma. PLAN: 1. Encourage weight loss. 2. Continue CPAP with a pressure of 8 cm of water. 3. Continue with the Airtouch full-face mask. 4. Implement good sleep hygiene measures and see me back in a year's time, earlier if needed. Her treatment is successful. We will continue with the treatment. LASHELL / SON: [id number] /
== END | disposition home or self-care (01) ==
LOC: SLEEP 16:42
PROVIDERS: ATTEND Internal Medicine Critical Care Medicine
DX: G47.33 Obstructive sleep apnea (adult) (pediatric) (principal); E66.9 Obesity, unspecified; I50.9 Heart failure, unspecified; J45.909 Unspecified asthma, uncomplicated; Z68.41 Body mass index [BMI] 40.0-44.9, adult; Z99.89 Dependence on other enabling machines and devices

== ENCOUNTER → 2017-10-05 | Outpatient (CLI) | payer OTHER, BC ==
--- NOTE | 2017-10-05 10:26 | US ---
EXAMINATION TYPE: US thyroid st tissue head/neck DATE OF EXAM: 10/05/2017 COMPARISON: NONE at this facility, outside imaging scanned into PACS. Comparison made to outside imag ing dated 08/16/2015. CLINICAL HISTORY: E04.1 Thyroid nodule. GLAND SIZE: Right Lobe: 5.3 x 1.6 x 1.7 cm Overall Parenchyma: homogenous Left Lobe: 5.3 x 1.4 x 1.3 cm Overall Parenchyma: homogeneous Isthmus Thickness: 0.4 cm NODULES RIGHT: # of nodules measured on right: 3 1. 1.8 X 1.5 x 1.3 cm hypoechoic solid nodule at the lower pole with well-defined margins; . This nodule is wider than tall and shows intranodular vascularity. Prior size: No previous at this facility, however this appears to measure 1.4 x 1.3 x 1.2 cm on th e prior of 08/16/2015. 2. 0.4 X 0.3 x 0.4 cm hypoechoic cystic nodule at the upper pole with well-defined margins; . This nodule is wider than tall and shows no intranodular vascularity. Prior size: No previous at this facility 3. 0.6 X 0.5 x 0.7 cm isoechoic solid nodule at the upper pole with well-defined margins; . This no dule is wider than tall and shows intranodular vascularity. Prior size: No previous at this facility LEFT: # of nodules measured on left: 3 1. 1.2 X 0.8 x 1.2 cm hypoechoic mixed nodule at the lower pole with well-defined margins; . This nodule is wider than tall and shows intranodular vascularity. Prior size: No previous at this facility, however this appears to have measured 0.9 x 0.6 x 2.6 cm on the prior outside exam. 2. 0.8 X 0.4 x 0.6 cm isoechoic solid nodule at the upper pole with well-defined margins; . This no dule is wider than tall and shows intranodular vascularity. Prior size: No previous at this facility 3. 0.3 X 0.3 x 0.4 cm hypoechoic cystic nodule at the upper pole with well-defined margins; . This nodule is wider than tall and shows no intranodular vascularity. Prior size: No previous at this facility ISTHMUS: # of nodules measured in the isthmus: 0 Bilateral slightly enlarged thyroid glands. Bilateral neck scanned, no evidence of lymphadenopathy. IMPRESSION: Findings compatible with a multinodular goiter, however there is interval growth of the largest bilat eral thyroid nodules with the right thyroid nodule now measuring up to 1.8 cm. Percutaneous fine-need le aspiration could be considered of this largest right thyroid nodule for further evaluation with [facility] thyroid scan to assess for cold nodule.
== END | disposition home or self-care (01) ==
LOC: RADUSWWP 08:58
PROVIDERS: ATTEND Family Medicine
DX: E04.2 Nontoxic multinodular goiter (principal)
CPT/HCPCS: 76536

== ENCOUNTER → 2017-10-26 | Outpatient (CLI) | payer OTHER, BC ==
[2017-10-26 18:32] LABS: Clam IgE <0.10 kU/L; Codfish IgE <0.10 kU/L; Egg White IgE <0.10 kU/L; Immunoglobulin E 3.66 IU/mL (0.00-114.00); Peanut IgE <0.10 kU/L; Scallop IgE <0.10 kU/L; Shrimp IgE <0.10 kU/L; Soybean IgE <0.10 kU/L; Walnut IgE (Food) <0.10 kU/L
[2017-10-26 18:47] LABS: Alternaria alternata IgE <0.10 kU/L; Birch IgE <0.10 kU/L; Cat Epith & Dander IgE <0.10 kU/L; Cockroach IgE <0.10 kU/L; Dermato. farinae IgE <0.10 kU/L; Dog Dander IgE <0.10 kU/L; Elm IgE <0.10 kU/L; Immunoglobulin E 3.95 IU/mL (0.00-114.00); Maple (Box Elder) IgE <0.10 kU/L; Oak IgE <0.10 kU/L; Ragweed,Common IgE <0.10 kU/L; Red Top (Bentgrass) IgE <0.10 kU/L
== END | disposition home or self-care (01) ==
LOC: LABWHC1 11:49
PROVIDERS: ATTEND Internal Medicine Critical Care Medicine
DX: J45.909 Unspecified asthma, uncomplicated (principal)
CPT/HCPCS: 36415; 82785; 85008; 86003

== ENCOUNTER 2017-11-12 12:17 | Day surgery (SDC) | payer OTHER, BC ==
[2017-11-12 12:45] VITALS: RESP 16; TEMP 98.8
--- NOTE | 2017-11-12 13:31 | US ---
ULTRASOUND GUIDED FNA THYROID BIOPSY: CLINICAL HISTORY: Request for right thyroid nodule FNA FINDINGS: The procedure was explained to the patient. The risks, complications, benefits and alternatives were discussed and any questions were answered. Informed consent was obtained. Patient was placed supin e on the ultrasound table and prepped and draped in the usual sterile fashion. Utilizing a 25 gauge needle, five passes were made into the the requested right thyroid nodule. Patient was stable throughout the procedure. Pathology is pending. All elements of maximal barrier technique were utilized. IMPRESSION: 1. Successful ultrasound guided FNA thyroid biopsy.
[2017-11-12 14:26] VITALS: BP 116/61; PULSE 80
== END 2017-11-12 13:45 | disposition home or self-care (01) ==
LOC: RADPROMAIN 12:17
PROVIDERS: ATTEND Family Medicine
DX: E04.1 Nontoxic single thyroid nodule (principal)
CPT/HCPCS: 10022; 76942; 88173; 88305

== ENCOUNTER 2018-01-10 09:08 | Observation (INO) | payer OTHER ==
[2018-01-10] MEDS ORDERED: NITROGLYCERIN SL TABS 0.4 MG TAB SUBLINGUAL STA (09:30)
--- NOTE | 2018-01-10 09:33 | ED ---
Chest Pain HPI - General Chief Complaint: Chest Pain Stated Complaint: Chest pain, MARIA ISABEL johansen Time Seen by Provider: 01/10/18 09:20 Source: patient, RN notes reviewed Limitations: no limitations - History of Present Illness Initial Comments: This is a 52-year-old female with a history of gastric sleeve and a history of cardiomyopathy thought to be viral in nature in March of this past year which also included a catheterization which apparently showed no blockages who presents with three-day history of nausea headache episodic left-sided chest pain with radiation to her shoulder blade area. He's had sweats especially last couple mornings. She's had dizziness with it. The chest pain has been as high as 6/10 currently is 4/10 he does state she took Excedrin this morning even though she is not supposed take NSAIDs because of the gastric sleeve. No fevers or chills she has been short of breath from her asthma she did take a nebulizer treatment this morning with some improvement up. It did not help the chest pain. She also states she has some tingling to her fingertips on the right. MD Complaint: chest pain, other - Related Data Home Medications Medication Instructions Recorded Confirmed Cholecalciferol [Vitamin D3] 5,000 unit PO DAILY 04/16/17 01/10/18 Levalbuterol Tartrate [Xopenex Hfa 2 puff INHALATION RT-QID PRN 04/16/17 Inhaler] Montelukast [Singulair] 10 mg PO HS 04/16/17 01/10/18 Diltiazem HCl [Cartia Xt] 300 mg PO DAILY 10/31/17 01/10/18 Ferrous Sulfate [Iron (65 MG 65 mg PO BID 10/31/17 01/10/18 Elemental)] Fluticasone Propionate [Flovent 2 puff INHALATION RT-BID 10/31/17 01/10/18 Hfa 220MCG] Albuterol Nebulized [Ventolin 2.5 mg INHALATION RT-Q4H PRN 01/10/18 01/10/18 Nebulized] Cyanocobalamin (Vitamin B-12) 1,000 mcg PO DAILY 01/10/18 01/10/18 [Vitamin B-12] L.acidoph,Paracasei, B.lactis 1 cap PO DAILY 01/10/18 01/10/18 [Probiotic] Multivitamins, Thera [Multivitamin 1 tab PO DAILY 01/10/18 01/10/18 (formulary)] Venlafaxine HCl ER [Effexor XR] 37.5 mg PO DAILY 01/10/18 01/10/18 Allergies Allergy/AdvReac Type Severity Reaction Status Date / Time ciprofloxacin Allergy Itching Verified 01/10/18 09:43 gluten AdvReac Nausea & Verified 01/10/18 09:43 Vomiting & Diarrhea hydromorphone [From Dilaudid] AdvReac Nausea & Verified 01/10/18 09:43 Vomiting NSAIDS (Non-Steroidal AdvReac Abdominal Verified 01/10/18 09:43 Anti-Inflamma Pain shellfish derived AdvReac Nausea & Verified 01/10/18 09:43 Vomiting Review of Systems ROS Statement: Those systems with pertinent positive or pertinent negative responses have been documented in the HPI. ROS Other: All systems not noted in ROS Statement are negative. EKG Findings - EKG Results: EKG: interpreted by SUSANA, sinus rhythm (Normal sinus rhythm rate 65. Interval 96 QRS duration 90 QT since QTC 442/[address]-T wave changes) Past Medical History Past Medical History: Asthma, Osteoarthritis (OA), Thyroid Disorder Additional Past Medical History / Comment(s): Cardiomyopathy about 1 year ago EF was 45%,then 60%-pt states she has had a recent echo and 24 hour cardiac cath technologist placed, occasional tachycardia especially after eating, treated for influenza a month ago with tamiflu/abx and couple weeks ago had R earache tx with flonase, ITZ with CPAP use in past then lost weight and no longer needed cpap- has PSG scheduled, pt states recent near syncope when she had the flu and with a dental procedure-checked fitbit and heart rate in 50s, thyroid nodules with neg bx. Spinal stenosis. Gluten sensitivity. Vitamin D deficiency. History of Any Multi-Drug Resistant Organisms: None Reported Past Surgical History: Appendectomy, Back Surgery, Bariatric Surgery, Section, Heart Catheterization, Hysterectomy, Orthopedic Surgery, Tonsillectomy Additional Past Surgical History / Comment(s): 2012 gastric sleeve, 11/2016 spinal fusion/decompression L4-L5 and S1, bilateral shcoulder arthroscopies, 3 laparotomies d/t pain/ovarian cyst/adhesions, hysterectomy with R oophorectomy, 2 D&Cs after miscarriages. Lipoma removed from left side of back. Cardiac cath. Past Anesthesia/Blood Transfusion Reactions: Motion Sickness, Postoperative Nausea & Vomiting (PONV) Past Psychological History: Anxiety, Depression Smoking Status: Never smoker Past Alcohol Use History: Occasional Past Drug Use History: None Reported - Past Family History Father Family Medical History: Cancer, Diabetes Mellitus, Renal Disease Additional Family Medical History / Comment(s): Father is from kidney failure d/t diabetes. Mother Family Medical History: Coronary Artery Disease (CAD), Diabetes Mellitus, Thyroid Disorder Additional Family Medical History / Comment(s): Mother has had multiple MIs with first one at about age 72 yrs. She has had CABG and has 5 cardiac stents. General Exam - General Exam Comments Initial Comments: This is a well-developed well-nourished awake alert oriented 3 female Limitations: no limitations General appearance: anxious Head exam: Present: atraumatic, normocephalic, normal inspection Eye exam: Present: normal appearance, PERRL, EOMI. Absent: scleral icterus, conjunctival injection, periorbital swelling ENT exam: Present: normal exam, mucous membranes moist Neck exam: Present: normal inspection. Absent: tenderness, meningismus, lymphadenopathy Respiratory exam: Present: normal lung sounds bilaterally. Absent: respiratory distress, wheezes, rales, rhonchi, stridor, chest wall tenderness Cardiovascular Exam: Present: regular rate, normal rhythm, normal heart sounds. Absent: systolic murmur, diastolic murmur, rubs, gallop, clicks GI/Abdominal exam: Present: soft, normal bowel sounds. Absent: distended, tenderness, guarding, rebound, rigid Extremities exam: Present: normal inspection, full ROM, normal capillary refill. Absent: tenderness, pedal edema, joint swelling, calf tenderness Back exam: Present: normal inspection Neurological exam: Present: alert, oriented X3, CN II-XII intact Psychiatric exam: Present: normal affect, normal mood Skin exam: Present: warm, dry, intact, normal color. Absent: rash Course Vital Signs 01/10/18 09:12 Temperature 97.8 F Pulse Rate 87 Respiratory 16 Rate Blood Pressure 166/85 O2 Sat by Pulse 98 Oximetry - Reevaluation(s) Reevaluation #1: 01/10/18 14:00 Patient is still complains some left-sided chest pain though the laboratory thus far indicates no evidence of findings. Chest Pain MDM - MDM I did discuss findings with the patient and family members. Patient be admitted for evaluation of chest pain. Angina. Disposition Clinical Impression: Atypical chest pain, Unstable angina pectoris Disposition: ADMITTED IP TO THIS HOSP Condition: Stable Referrals: Radha Mcmillan MD [Primary Care Provider] - 1-2 days
[2018-01-10 10:28] LABS: Basophils % (A) 0 %; Eosinophils # (A) 0.1 k/uL (0-0.7); Eosinophils % (A) 1 %; HCT 39.6 % (34.0-46.0); HGB 13.1 gm/dL (11.4-16.0); Lymphocytes # (A) 1.5 k/uL (1.0-4.8); Lymphocytes % (A) 24 %; MCH 27.7 pg (25.0-35.0); MCV 83.8 fL (80.0-100.0); Mean Platelet Volume 7.2; Monocytes # (A) 0.2 k/uL (0-1.0); Monocytes % (A) 4 %; Neutrophils # (A) 4.4 k/uL (1.3-7.7); Neutrophils % (A) 69 %; Platelet Count 203 k/uL (150-450); RBC 4.72 m/uL (3.80-5.40); RDW 15.4 % (11.5-15.5); WBC 6.3 k/uL (3.8-10.6)
[2018-01-10 10:31] LABS: ALT 19 U/L (9-52); AST 22 U/L (14-36); Albumin 4.1 g/dL (3.5-5.0); Alkaline Phosphatase 75 U/L (38-126); Amylase 52 U/L (30-110); Anion Gap 9 mmol/L; Blood Urea Nitrogen 11 mg/dL (7-17); Calcium 9.4 mg/dL (8.4-10.2); Carbon Dioxide 25 mmol/L (22-30); Chloride 110 mmol/L (98-107); Glucose 100 mg/dL (74-99); Lipase 159 U/L (23-300); Magnesium 2.1 mg/dL (1.6-2.3); Sodium 144 mmol/L (137-145); Total Bilirubin 0.3 mg/dL (0.2-1.3); Total Protein 6.8 g/dL (6.3-8.2)
--- NOTE | 2018-01-10 10:49 | XR ---
EXAMINATION TYPE: XR chest 2V DATE OF EXAM: 01/10/2018 COMPARISON: 04/16/2017 HISTORY: Chest pain TECHNIQUE: Frontal and lateral views of the chest are obtained. FINDINGS: There is no focal air space opacity. No evidence for pneumothorax. No pleural effusion. The cardiac silhouette size is within normal limits. The osseous structures are grossly intact. IMPRESSION: 1. No acute cardiopulmonary process.
[2018-01-10 11:00] LABS: Creatine Kinase 51 U/L (30-135)
[2018-01-10 11:07] LABS: D-Dimer 0.34 mg/L FEU (<0.60); Partial Thromboplastin Time 25.6 sec (22.0-30.0); Prothrombin Time 10.1 sec (9.0-12.0)
[2018-01-10 11:14] LABS: Creatine Kinase MB <0.2 ng/mL (0.0-2.4); Troponin I <0.012 ng/mL (0.000-0.034)
[2018-01-10] MEDS ORDERED: NITROGLYCERIN SL TABS 0.4 MG TAB SUBLINGUAL PRN (14:01)
[2018-01-10] MEDS ORDERED: HEPARIN SODIUM,PORCINE 5,000 UNIT/ML 1 ML VIAL IV ONE (14:01)
[2018-01-10] MEDS ORDERED: NON-FORMULARY DRUG (Levalbuterol Tartrate [Xopenex Hfa Inhaler] 2 PUFF) INHALATION PRN (14:06)
[2018-01-10] MEDS ORDERED: HEPARIN SOD,PORK IN 0.45% NACL 25,000 UNIT in 0.45% NACL 1 500ML.BAG IV SCH (14:15)
[2018-01-10] MEDS ORDERED: SODIUM CHLORIDE 0.9% 1,000 ML IV SCH (14:15)
[2018-01-10] MEDS ORDERED: ACETAMINOPHEN TAB 325 MG TAB PO STA (14:59)
--- NOTE | 2018-01-10 15:08 | P.HPIM ---
History of Present Illness H&P Date: 01/10/18 The patient is a 52 yo F with the PMH of asthma, gastric sleeve surgery (5 years ago) and nonischemic cardiomyopathy s/p cath 03/2016 presented to the ED for chest pain. She notes that for the past week, she has been experiencing intermittent L sided burning and dull/achy chest pain, occuring intermittently with or without exertion, w/ radiation to neck and L arm. The pain occurs without any particular pattern and has no alleviating or exacerbating factors. At maximal intensity it was a 7/10 and presently is a 4/10 with associated nausea and diaphoresis. She notes that earlier today she felt lightheaded and diaphoretic w/ the onset of the headache though has had dizziness in the past in isolation as well. She also c/o SOB though attributed that to her asthma. She further endorsed a R sided pressure like headache similar to her prior migraine headaches. She otherwise denied visual changes, tenderness on palpation , palpitations, vomiting, LE swelling, recent travel, fever, chills, cough, sore throat, sick contacts, weakness, numbness, or loss of consciousness. The patient notes that she had similar symptoms in 03/2016 and was admitted to a different facility where Echo showed EF 40-45% with LHC showing normal coronaries. She then had a repeat Echo a few months ago which revealed EF 55-60 % and has been following w/ a wood model builder. In the ED, the patient had a comprehensive workup w/ Troponin < 0.012, D-dimer 0.34, BNP 43, EKG showing normal sinus rhythm, CXR unremarkable, WBC 6.3, Hgb 13.1. Review of Systems Pertinent positives and negatives as discussed in HPI, a complete review of systems was performed and all other systems are negative. Past Medical History Past Medical History: Asthma, Osteoarthritis (OA), Thyroid Disorder Additional Past Medical History / Comment(s): Cardiomyopathy about 1 year ago EF was 45%,then 60%-pt states she has had a recent echo and 24 hour account coordinator placed, occasional tachycardia especially after eating, treated for influenza a month ago with tamiflu/abx and couple weeks ago had R earache tx with flonase, ITZ with CPAP use in past then lost weight and no longer needed cpap- has PSG scheduled, pt states recent near syncope when she had the flu and with a dental procedure-checked fitbit and heart rate in 50s, thyroid nodules with neg bx. Spinal stenosis. Gluten sensitivity. Vitamin D deficiency. History of Any Multi-Drug Resistant Organisms: None Reported Past Surgical History: Appendectomy, Back Surgery, Bariatric Surgery, Section, Heart Catheterization, Hysterectomy, Orthopedic Surgery, Tonsillectomy Additional Past Surgical History / Comment(s): 2012 gastric sleeve, 11/2016 spinal fusion/decompression L4-L5 and S1, bilateral shcoulder arthroscopies, 3 laparotomies d/t pain/ovarian cyst/adhesions, hysterectomy with R oophorectomy, 2 D&Cs after miscarriages. Lipoma removed from left side of back. Cardiac cath. Past Anesthesia/Blood Transfusion Reactions: Motion Sickness, Postoperative Nausea & Vomiting (PONV) Past Psychological History: Anxiety, Depression Smoking Status: Never smoker Past Alcohol Use History: Occasional Past Drug Use History: None Reported - Past Family History Father Family Medical History: Cancer, Diabetes Mellitus, Renal Disease Additional Family Medical History / Comment(s): Father is from kidney failure d/t diabetes. Mother Family Medical History: Coronary Artery Disease (CAD), Diabetes Mellitus, Thyroid Disorder Additional Family Medical History / Comment(s): Mother has had multiple MIs with first one at about age 72 yrs. She has had CABG and has 5 cardiac stents. Medications and Allergies Home Medications Medication Instructions Recorded Confirmed Type Cholecalciferol [Vitamin D3] 5,000 unit PO DAILY 04/16/17 01/10/18 History Levalbuterol Tartrate [Xopenex Hfa 2 puff INHALATION RT-QID PRN 04/16/17 History Inhaler] Montelukast [Singulair] 10 mg PO HS 04/16/17 01/10/18 History Diltiazem HCl [Cartia Xt] 300 mg PO DAILY 10/31/17 01/10/18 History Ferrous Sulfate [Iron (65 MG 65 mg PO BID 10/31/17 01/10/18 History Elemental)] Fluticasone Propionate [Flovent 2 puff INHALATION RT-BID 10/31/17 01/10/18 History Hfa 220MCG] Albuterol Nebulized [Ventolin 2.5 mg INHALATION RT-Q4H PRN 01/10/18 01/10/18 History Nebulized] Cyanocobalamin (Vitamin B-12) 1,000 mcg PO DAILY 01/10/18 01/10/18 History [Vitamin B-12] L.acidoph,Paracasei, B.lactis 1 cap PO DAILY 01/10/18 01/10/18 History [Probiotic] Multivitamins, Thera [Multivitamin 1 tab PO DAILY 01/10/18 01/10/18 History (formulary)] Venlafaxine HCl ER [Effexor XR] 37.5 mg PO DAILY 01/10/18 01/10/18 History Allergies Allergy/AdvReac Type Severity Reaction Status Date / Time ciprofloxacin Allergy Itching Verified 01/10/18 09:43 gluten AdvReac Nausea & Verified 01/10/18 09:43 Vomiting & Diarrhea hydromorphone [From Dilaudid] AdvReac Nausea & Verified 01/10/18 09:43 Vomiting NSAIDS (Non-Steroidal AdvReac Abdominal Verified 01/10/18 09:43 Anti-Inflamma Pain shellfish derived AdvReac Nausea & Verified 01/10/18 09:43 Vomiting Physical Exam Vitals: Vital Signs Temp Pulse Resp BP Pulse Ox 01/10/18 09:12 97.8 F 87 16 166/85 98 Intake and Output 01/09/18 01/10/18 01/10/18 22:59 06:59 14:59 Other: Weight 102.058 kg General: [non toxic], [no distress], [appears at stated age], [morbidly obese] Derm: [no unusual rashes/lesions] [no unusual ecchymoses], [warm], [dry] Head: [atraumatic], [normocephalic], [symmetric] Eyes: [EOMI], [no lid lag], [anicteric sclera], [pupils equal round reactive to light] ENT: [Nose and ears atraumatic], [no thrush], [no pharyngeal erythema] Neck: [No thyromegaly], [no cervical lymphadenopathy], [trachea midline], [ supple] Mouth: [no lip lesion], [mucus membranes moist] Cardiovascular: [S1S2 reg], [no murmur], [positive posterior tibial pulse bilateral], [no edema], [capillary refill less than 2 seconds] Lungs: [CTA bilateral], [no rhonchi, no rales] , [no accessory muscle use] Abdominal: [soft], [ nontender to palpation], [no guarding], [no appreciable organomegaly], [normal bowel sounds] Ext: [no gross muscle atrophy], [muscle strength 5 out of 5 in all 4 extremities grossly], [no contractures], Neuro: [ CN II-XI grossly intact], [light touch intact all 4 extremities], [ finger to nose within normal limits], Psych: [Alert], [oriented], [appropriate affect] Results CBC & Chem 7: 01/10/18 10:09 01/10/18 10:09 Labs: Abnormal Lab Results - Last 24 Hours (Table) 01/10/18 Range/Units 10:09 Chloride 110 H (98-107) mmol/L Glucose 100 H (74-99) mg/dL Assessment and Plan Plan: Chest pain, in light of hx of cardiomyopathy, will r/o ACS - Heparin infusion - Trend troponin - Aspirin, Plavix, Statin - Cardiology consult - Echocardiogram - Tele monitoring - Protonix - Nitro-paste - Lipid panel, A1C Asthma - Resume home meds: Albuterol, Singulair, Flonase DVT//GI prophylaxis - Heparin infusion - No indication for GI prophylaxis The patient is placed under observation status with an anticipated stay of less than 2 midnight stay for evaluation of chest pain Surrogate decision-maker: CODE STATUS:Full-Code Discussed with: Patient, Anticipated discharge date: 01/12/[address]: Home A total of 60 minutes was spent on the care of this complex patient more than 50 % of the time was spent in counseling and care coordination.
[2018-01-10 16:56] LABS: Creatine Kinase 47 U/L (30-135)
[2018-01-10 17:11] LABS: Creatine Kinase MB <0.2 ng/mL (0.0-2.4); Troponin I <0.012 ng/mL (0.000-0.034)
[2018-01-10] MEDS: ALBUTEROL NEBULIZED 2.5 MG/3 ML INHALATION PRN (17:21)
[2018-01-10] MEDS: NITROGLYCERIN OINT 1 INCH/GM PACKET TOPICAL SCH (18:31)
[2018-01-10] MEDS: FLUTICASONE 220 MCG INHALER INHALATION SCH (20:14)
[2018-01-10] MEDS: ACETAMINOPHEN TAB 325 MG TAB PO PRN (20:49)
[2018-01-10] MEDS: FERROUS SULFATE 325 MG TAB PO SCH (20:50)
[2018-01-10] MEDS ORDERED: MONTELUKAST 10 MG TAB PO SCH (21:00)
[2018-01-10 22:58] LABS: Creatine Kinase 50 U/L (30-135)
[2018-01-10] MEDS: ONDANSETRON 4 MG/2 ML VIAL IVP PRN (23:01)
[2018-01-10 23:11] LABS: Creatine Kinase MB <0.2 ng/mL (0.0-2.4); Troponin I <0.012 ng/mL (0.000-0.034)
[2018-01-11 00:36] LABS: Cholesterol 200 mg/dL (<200); HDL Cholesterol 54 mg/dL (40-60); LDL Cholesterol,Calculated 119 mg/dL (0-99); Triglycerides 134 mg/dL (<150)
[2018-01-11] MEDS: NITROGLYCERIN OINT 1 INCH/GM PACKET TOPICAL SCH ×2 (00:57→06:27)
[2018-01-11] MEDS: ACETAMINOPHEN TAB 325 MG TAB PO PRN (07:39)
[2018-01-11] MEDS: FLUTICASONE 220 MCG INHALER INHALATION SCH (07:42)
[2018-01-11] MEDS: ALBUTEROL NEBULIZED 2.5 MG/3 ML INHALATION PRN ×2 (07:44→09:54)
--- NOTE | 2018-01-11 08:31 | P.CRDCN ---
History of Present Illness Consult date: 01/11/18 Chief complaint: Chest pain History of present illness: This is a pleasant 52-year-old female patient who I follow in the office as an outpatient with a past medical history significant for cardiomyopathy, known normal coronary arteries based on heart catheterization was performed in March 2016 in [facility], as well as history of asthma, presented to the hospital complaining of chest discomfort. The patient was in her usual state of health until the last 2 days when she started experiencing intermittent episodes of chest discomfort, in the mid of the chest, as a burning sensation, and also she was describing discomfort in the epigastric area as well as in the right upper quadrant. No associated symptoms of shortness of breath, dizziness or lightheadedness, feeling of heart racing or fluttering, or syncope. The EKG showed sinus rhythm without any significant ST or T-wave abnormalities. 2 sets of cardiac enzymes were checked and came in to be unremarkable. The chest x-ray did not show any acute abnormalities. I have been following the patient in the office for the last 2 years. I did start follow her after she had a heart catheterization in [facility] for a definitive diagnosis of cardiomyopathy and that came in to be unremarkable. Since then I have been managing her tachycardia and I did start the patient on calcium channel vidya with Cardizem, and stent of beta vidya, giving her history of asthma which has been acting out lately on her. Giving normal heart catheterization which was performed recently, I doubt that her chest discomfort is cardiac related. I am going to DC the heparin at this point. I am going to obtain an ultrasound of the gallbladder giving the mild epigastric and right upper quadrants tenderness on physical examination. We'll obtain an echocardiogram to assess ejection fraction giving her history of cardiomyopathy which was resolved on maximize medical treatment. Likely the patient can be discharged home later on today. Past Medical History Past Medical History: Asthma, Osteoarthritis (OA), Thyroid Disorder Additional Past Medical History / Comment(s): 03/2016 Cardiomyopathy thought viral, occasiona tachycardia especially when eats and with activity, ITZ with CPAP use, near syncope when she had the flu and with a dental procedure-checked fitbit and heart rate in 50s, thyroid nodules with neg bx. Spinal stenosis. Gluten sensitivity. Vitamin D deficiency, iron deficiency anemia. History of Any Multi-Drug Resistant Organisms: None Reported Past Surgical History: Appendectomy, Back Surgery, Bariatric Surgery, Section, Heart Catheterization, Hysterectomy, Orthopedic Surgery, Tonsillectomy Additional Past Surgical History / Comment(s): 2012 gastric sleeve, 11/2016 spinal fusion/decompression L4-L5 and S1, bilateral shoulder arthroscopies, 3 laparotomies d/t pain/ovarian cyst/adhesions, hysterectomy with R oophorectomy, 2 D&Cs after miscarriages, lipoma removed from left side of back, 2016 Cardiac cath-normal, colonoscopy Past Anesthesia/Blood Transfusion Reactions: Motion Sickness, Postoperative Nausea & Vomiting (PONV) Smoking Status: Never smoker - Past Family History Father Family Medical History: Cancer, Diabetes Mellitus, Renal Disease Additional Family Medical History / Comment(s): Father is from kidney failure d/t diabetes. He at the age of 68yrs. Mother Family Medical History: Cancer, Coronary Artery Disease (CAD), Diabetes Mellitus , Myocardial Infarction (LA), Thyroid Disorder Additional Family Medical History / Comment(s): Mother has had multiple MIs with first one at about age 72 yrs. She has had CABG and has 5 cardiac stents. She is in remision from uterine cancer and has osteoporosis. She is 81 yrs old. Medications and Allergies Home Medications Medication Instructions Recorded Confirmed Type Cholecalciferol [Vitamin D3] 5,000 unit PO DAILY 04/16/17 01/10/18 History Levalbuterol Tartrate [Xopenex Hfa 2 puff INHALATION RT-QID PRN 04/16/17 History Inhaler] Montelukast [Singulair] 10 mg PO HS 04/16/17 01/10/18 History Diltiazem HCl [Cartia Xt] 300 mg PO DAILY 10/31/17 01/10/18 History Ferrous Sulfate [Iron (65 MG 65 mg PO BID 10/31/17 01/10/18 History Elemental)] Fluticasone Propionate [Flovent 2 puff INHALATION RT-BID 10/31/17 01/10/18 History Hfa 220MCG] Albuterol Nebulized [Ventolin 2.5 mg INHALATION RT-Q4H PRN 01/10/18 01/10/18 History Nebulized] Cyanocobalamin (Vitamin B-12) 1,000 mcg PO DAILY 01/10/18 01/10/18 History [Vitamin B-12] L.acidoph,Paracasei, B.lactis 1 cap PO DAILY 01/10/18 01/10/18 History [Probiotic] Multivitamins, Thera [Multivitamin 1 tab PO DAILY 01/10/18 01/10/18 History (formulary)] Venlafaxine HCl ER [Effexor XR] 37.5 mg PO DAILY 01/10/18 01/10/18 History Allergies Allergy/AdvReac Type Severity Reaction Status Date / Time ciprofloxacin Allergy Itching Verified 01/10/18 09:43 gluten AdvReac Nausea & Verified 01/10/18 09:43 Vomiting & Diarrhea hydromorphone [From Dilaudid] AdvReac Nausea & Verified 01/10/18 09:43 Vomiting NSAIDS (Non-Steroidal AdvReac Abdominal Verified 01/10/18 09:43 Anti-Inflamma Pain shellfish derived AdvReac Nausea & Verified 01/10/18 09:43 Vomiting Physical Exam Vitals: Vital Signs Temp Pulse Pulse Resp BP BP Pulse Ox 01/11/18 07:56 80 01/11/18 07:46 72 01/11/18 04:00 97.4 F L 62 18 103/64 98 01/11/18 00:00 97.6 F 70 18 109/56 96 01/10/18 20:00 18 01/10/18 17:30 76 01/10/18 17:22 77 01/10/18 15:40 97.7 F 65 18 101/56 97 01/10/18 14:00 71 14 124/79 99 01/10/18 13:00 68 12 119/82 99 01/10/18 12:00 68 14 126/78 96 01/10/18 09:12 97.8 F 87 16 166/85 98 Intake and Output 01/10/18 01/11/18 01/11/18 22:59 06:59 14:59 Intake Total 165.333 Balance 165.333 Intake: Intake, IV Titration 165.333 Amount Heparin Sod,Pork in 0.45% 165.333 NaCl 25,000 unit In 0.45 % NaCl 1 500ml.bag @ 9.8 UNITS/KG/HR 20 mls/hr IV .Q24H [facility] Rx#:[id number] Other: # Voids 1 1 Weight 61 kg - Constitutional General appearance: no acute distress - Respiratory Respiratory: bilateral: CTA - Cardiovascular Rhythm: regular Heart sounds: normal: S1, S2 Results 01/10/18 10:09 01/10/18 10:09 Cardiac Enzymes 01/10/18 01/10/18 01/10/18 Range/Units 10:09 10:09 15:52 AST 22 (14-36) U/L CK-MB (CK-2) <0.2 <0.2 (0.0-2.4) ng/mL Troponin I <0.012 <0.012 (0.000-0.034) ng/mL 01/10/18 Range/Units 21:47 AST (14-36) U/L CK-MB (CK-2) <0.2 (0.0-2.4) ng/mL Troponin I <0.012 (0.000-0.034) ng/mL Coagulation 01/10/18 01/10/18 01/11/18 Range/Units 10:09 21:47 07:14 PT 10.1 (9.0-12.0) sec APTT 25.6 110.3 H* 33.1 H (22.0-30.0) sec Lipids 01/10/18 Range/Units 10:09 Triglycerides 134 (<150) mg/dL Cholesterol 200 H (<200) mg/dL HDL Cholesterol 54 (40-60) mg/dL CBC 01/10/18 Range/Units 10:09 WBC 6.3 (3.8-10.6) k/uL RBC 4.72 (3.80-5.40) m/uL Hgb 13.1 (11.4-16.0) gm/dL Hct 39.6 (34.0-46.0) % Plt Count 203 (150-450) k/uL Comprehensive Metabolic Panel 01/10/18 Range/Units 10:09 Sodium 144 (137-145) mmol/L Potassium 4.0 (3.5-5.1) mmol/L Chloride 110 H (98-107) mmol/L Carbon Dioxide 25 (22-30) mmol/L BUN 11 (7-17) mg/dL Creatinine 0.63 (0.52-1.04) mg/dL Glucose 100 H (74-99) mg/dL Calcium 9.4 (8.4-10.2) mg/dL AST 22 (14-36) U/L ALT 19 (9-52) U/L Alkaline Phosphatase 75 (38-126) U/L Total Protein 6.8 (6.3-8.2) g/dL Albumin 4.1 (3.5-5.0) g/dL Current Medications Generic Name Dose Route Start Last Admin Trade Name Freq PRN Reason Stop Dose Admin Acetaminophen 650 mg 01/10/18 16:33 01/11/18 07:39 Tylenol Tab PO 650 mg Q6HR PRN Administration Fever and/ or Pain Albuterol Sulfate 2.5 mg 01/10/18 14:06 01/11/18 07:44 Ventolin Nebulized INHALATION 2.5 mg RT-Q4H PRN Administration Wheezing Aspirin 325 mg 01/11/18 09:00 Aspirin PO DAILY [facility] Cholecalciferol 5,000 unit 01/11/18 09:00 Vitamin D3 PO DAILY [facility] Cyanocobalamin 1,000 mcg 01/11/18 09:00 Vitamin B-12 PO DAILY [facility] Diltiazem HCl 300 mg 01/11/18 09:00 Cardizem Cd PO DAILY [facility] Ferrous Sulfate 325 mg 01/10/18 21:00 01/10/18 20:50 Feosol PO 325 mg BID [facility] Administration Fluticasone Propionate 2 puff 01/10/18 20:00 01/11/18 07:42 Flovent 220 Mcg Inhaler INHALATION 2 puff RT-BID [facility] Administration Heparin Sodium/Sodium Chloride 500 mls @ 20 mls/hr 01/10/18 14:15 01/11/18 00 :58 25,000 unit/ Sodium Chloride IV 6.8 units/kg/hr .Q24H [facility] 13.87 mls/hr Titration Protocol 9.8 UNITS/KG/HR Sodium Chloride 1,000 mls @ 20 mls/hr 01/10/18 14:15 01/10/18 20:42 Saline 0.9% IV Not Given .Q24H [facility] Lactobacillus Acidoph/Bulgaricus 1 each 01/11/18 09:00 Lactinex PO DAILY [facility] Montelukast Sodium 10 mg 01/10/18 21:00 01/10/18 20:50 Singulair PO 10 mg HS [facility] Administration Multivitamins 1 each 01/11/18 12:00 Theragran PO DAILY@1200 [facility] Nitroglycerin 1 inch 01/10/18 18:00 01/11/18 06:27 Nitro-Bid Oint TOPICAL Not Given Q6HR [facility] Nitroglycerin 0.4 mg 01/10/18 14:01 Nitrostat SUBLINGUAL Q5M PRN Chest Pain Ondansetron HCl 4 mg 01/10/18 22:50 01/10/18 23:01 Zofran IVP 4 mg Q6HR PRN Administration Nausea And Vomiting Venlafaxine HCl 37.5 mg 01/11/18 09:00 Effexor Xr PO DAILY [facility] Intake and Output 01/10/18 01/11/18 01/11/18 22:59 06:59 14:59 Intake Total 165.333 Balance 165.333 Intake: Intake, IV Titration 165.333 Amount Heparin Sod,Pork in 0.45% 165.333 NaCl 25,000 unit In 0.45 % NaCl 1 500ml.bag @ 9.8 UNITS/KG/HR 20 mls/hr IV .Q24H [facility] Rx#:[id number] Other: # Voids 1 1 Weight 61 kg 01/10/18 10:09 01/10/18 10:09 Assessment and Plan Assessment: Assessment #1 intermittent episodes of atypical chest discomfort #2 epigastric discomfort and right upper quadrant discomfort #3 known normal coronaries based on heart catheterization recently, in 2017 #4 known nonischemic cardiomyopathy which has improved Plan #1 I doubt that the patient's chest discomfort is cardiac related #2 DC the heparin and feed the patient #3 obtain an echocardiogram was Doppler to assess ejection fraction #4 obtain an ultrasound of the gallbladder to rule out cholecystitis #5 follow-up with the patient.
[2018-01-11] MEDS ORDERED: CYANOCOBALAMIN 500 MCG TAB PO SCH (09:00)
[2018-01-11] MEDS ORDERED: VENLAFAXINE HCL ER 37.5 MG CAP PO SCH (09:00)
[2018-01-11] MEDS ORDERED: DILTIAZEM CD 300 MG CAP.ER.24H PO SCH (09:00)
[2018-01-11] MEDS ORDERED: LACTOBACILLUS ACIDOPH & BULGAR 1 EACH PACKET PO SCH (09:00)
[2018-01-11] MEDS ORDERED: ASPIRIN 325 MG TAB PO SCH (09:00)
[2018-01-11] MEDS ORDERED: CHOLECALCIFEROL 1,000 UNIT TAB PO SCH (09:00)
[2018-01-11 09:16] VITALS: RESP 16
[2018-01-11] MEDS: ONDANSETRON 4 MG/2 ML VIAL IVP PRN (09:28)
--- NOTE | 2018-01-11 09:42 | US ---
EXAMINATION TYPE: US gallbladder DATE OF EXAM: 01/11/2018 COMPARISON: CT September 20, 2010. CLINICAL HISTORY: chest pain/ abdominal pain. abd pain with nausea, has episode of this before EXAM MEASUREMENTS: Liver Length: 16.1 cm Gallbladder Wall: 0.1 cm CBD: 0.4 cm Right Kidney: 9.9 x 4.4 x 5.3 cm Pancreas: wnl Liver: wnl Gallbladder: wnl Evidence for sonographic Casarez's sign: no CBD: wnl Right Kidney: wnl Visualized pancreas is felt within normal limits. Visualized liver shows no suspicious mass or ductal dilatation. Gallbladder shows no shadowing mobile gallstones. Limited images right kidney show no hy dronephrosis. IMPRESSION: Unremarkable limited abdominal ultrasound.
--- NOTE | 2018-01-11 11:40 | ECHOF ---
Referral Reason:Chest pain MEASUREMENTS -------- HEIGHT: 152.4 cm WEIGHT: 102.1 kg BP: 103/64 RVIDd: 2.9 cm (< 3.3) IVSd: 1.1 cm (0.6 - 1.1) LVIDd: 4.3 cm (3.9 - 5.3) LVPWd: 1.2 cm (0.6 - 1.1) IVSs: 1.7 cm LVIDs: 3.3 cm LVPWs: 1.5 cm LA Diam: 3.0 cm (2.7 - 3.8) LAESV Index (A-L): 20.17 ml/m Ao Diam: 2.9 cm (2.0 - 3.7) AV Cusp: 2.0 cm (1.5 - 2.6) MV EXCURSION: 23.102 mm (> 18.000) MV EF SLOPE: 167 mm/s (70 - 150) EPSS: 0.5 cm MV E Pastor: 0.99 m/s MV DecT: 180 ms MV A Pastor: 0.70 m/s MV E/A Ratio: 1.42 FINDINGS -------- Sinus rhythm. This was a technically good study. The left ventricular size is normal. There is borderline concentric left ventricular hypertrophy. Overall left ventricular systolic function is normal with, an EF between 60 - 65 %. The right ventricle is normal in size. Normal LA size by volume 22+/-6 ml/m2. The right atrium is normal in size. The aortic valve is trileaflet and appears structurally normal. There is trace mitral regurgitation. The tricuspid valve appears structurally normal. Trace/mild (physiologic) pulmonic regurgitation. The aortic root size is normal. There is no pericardial effusion. CONCLUSIONS -------- 1. Sinus rhythm. 2. This was a technically good study. 3. The left ventricular size is normal. 4. There is borderline concentric left ventricular hypertrophy. 5. Overall left ventricular systolic function is normal with, an EF between 60 - 65 %. 6. The right ventricle is normal in size. 7. Normal LA size by volume 22+/-6 ml/m2. 8. The right atrium is normal in size. 9. The aortic valve is trileaflet and appears structurally normal. 10. There is trace mitral regurgitation. 11. The tricuspid valve appears structurally normal. 12. Trace/mild (physiologic) pulmonic regurgitation. 13. The aortic root size is normal. 14. There is no pericardial effusion. BACKBREAKER: Blank Zelaya RDCS
[2018-01-11] MEDS: FERROUS SULFATE 325 MG TAB PO SCH (11:47)
[2018-01-11] MEDS ORDERED: MULTIVITAMINS, THERA 1 EACH TAB PO SCH (12:00)
--- NOTE | 2018-01-11 12:13 | P.DS ---
Providers Date of admission: 01/10/18 14:07 Expected date of discharge: 01/11/18 Attending physician: Irasema Victor MD Consults: 01/10/18 14:02 Consult Physician Urgent Consulting Provider: Kinga Mallory Consult Reason/Comments: Chest pain Do you want consulting provider notified?: Yes Primary care physician: Radha Mcmillan MD Hospital Course: The patient is a 52 yo F with the PMH of gastric sleeve surgery and non- ischemic cardiomyopathy s/p cath in 2017 showing normal coronaries presented to the ED for chest pain. She noted that for the past week, she had been experiencing intermittent L sided burning and dull/achy chest pain, occuring intermittently with or without exertion, w/ radiation to neck and L arm. She also noted that the pain occasionally occurs post prandially at the RUQ w/ radiation to the back. The patient had an extensive w/u in the ED w/ troponin < 0.012, D-dimer 0.34, BNP 43 w/ EKG showing normal sinus rhythm and CXR unremarkable. She was placed under observation status for chest pain. Troponins were < 0.012 x 3. She was evaluated by the Cardiology service who noted that the patient's atypical chest discomfort is unlikely to be cardiac in nature in light of normal coronaries on [facility]. Echocardiogram was obtained and showed borderline concentric LVH w/ EF 60-65% w/ normal RV size and function. RUQ ultrasound was unremarkable and failed to show any gall stones or liver abnormlities. The patient's chest pain improved during her stay. She is presently stable and ready for discharge to home. Discussed the results with the patient in detail and informed the patient to return to the ED if her chest pain recurs. The patient verbalized understanding. Physical Examination General: Awake, alert, in no acute distress, obese HEENT: NC/AT, anicteric sclerae, moist conjunctiva, no lid-lag, PERRLA, oropharynx clear, no erythema, exudates Cardiovascular: S1/S2 wnl, no murmurs, rubs, or gallops Lungs: Clear to auscultation, normal respiratory effort, no accessory muscle use Abdominal: Soft, nontender, non-distended, no guarding, rebound, or rigidity, normoactive bowel sounds Skin: Warm, dry Extremities: No edema or contractures Psychiatric: Alert and oriented to person, place and time, appropriate affect, Intact judgment Neuro: CN II-XI grossly intact, sensation to light touch grossly present throughout, no focal sensory deficits Discharge diagnosis: Atypical chest pain, ACS ruled out; Epigastric discomfort; hx of Asthma; Hx of non-ischemic cardiomyopathy - resolved A total of 50 minutes of time were spent preparing this complex discharge summary. Pertinent Studies: Echocardiogram: Borderline concentric LVH, EF 60-65%, normal RV size and function RUQ Ultrasound: Gallbldader showed no shadowing mobile gallstones, no suspicious liver mass or ductal dilatation Patient Condition at Discharge: Stable Plan - Discharge Summary Discharge Rx Participant: No New Discharge Prescriptions: Continue Cholecalciferol [Vitamin D3] 5,000 unit PO DAILY Levalbuterol Tartrate [Xopenex Hfa Inhaler] 2 puff INHALATION RT-QID PRN PRN Reason: Shortness Of Breath Montelukast [Singulair] 10 mg PO HS Ferrous Sulfate [Iron (65 MG Elemental)] 65 mg PO BID Fluticasone Propionate [Flovent Hfa 220MCG] 2 puff INHALATION RT-BID Diltiazem HCl [Cartia Xt] 300 mg PO DAILY Venlafaxine HCl ER [Effexor XR] 37.5 mg PO DAILY Albuterol Nebulized [Ventolin Nebulized] 2.5 mg INHALATION RT-Q4H PRN PRN Reason: Wheezing Multivitamins, Thera [Multivitamin (formulary)] 1 tab PO DAILY L.acidoph,Paracasei, B.lactis [Probiotic] 1 cap PO DAILY Cyanocobalamin (Vitamin B-12) [Vitamin B-12] 1,000 mcg PO DAILY Discharge Medication List Cholecalciferol [Vitamin D3] 5,000 unit PO DAILY 04/16/17 [History] Levalbuterol Tartrate [Xopenex Hfa Inhaler] 2 puff INHALATION RT-QID PRN [History] Montelukast [Singulair] 10 mg PO HS 04/16/17 [History] Diltiazem HCl [Cartia Xt] 300 mg PO DAILY 10/31/17 [History] Ferrous Sulfate [Iron (65 MG Elemental)] 65 mg PO BID 10/31/17 [History] Fluticasone Propionate [Flovent Hfa 220MCG] 2 puff INHALATION RT-BID 10/31/17 [ History] Albuterol Nebulized [Ventolin Nebulized] 2.5 mg INHALATION RT-Q4H PRN 01/10/18 [ History] Cyanocobalamin (Vitamin B-12) [Vitamin B-12] 1,000 mcg PO DAILY 01/10/18 [ History] L.acidoph,Paracasei, B.lactis [Probiotic] 1 cap PO DAILY 01/10/18 [History] Multivitamins, Thera [Multivitamin (formulary)] 1 tab PO DAILY 01/10/18 [History ] Venlafaxine HCl ER [Effexor XR] 37.5 mg PO DAILY 01/10/18 [History] Follow up Appointment(s)/Referral(s): Radha Mcmillan MD [Primary Care Provider] - 1-2 days Discharge Disposition: HOME SELF-CARE
[2018-01-11 12:21] VITALS: BP 115/78; TEMP 97.7
[2018-01-11 12:23] VITALS: PULSE 68
== END 2018-01-11 13:50 | disposition home or self-care (01) ==
LOC: EC 09:08 → 1SOBS 14:07
PROVIDERS: ADMIT Internal Medicine; ATTEND Internal Medicine
DX: R07.89 Other chest pain (principal); I42.9 Cardiomyopathy, unspecified; R10.13 Epigastric pain; J45.909 Unspecified asthma, uncomplicated; Z90.710 Acquired absence of both cervix and uterus; F32.9 Major depressive disorder, single episode, unspecified; F41.9 Anxiety disorder, unspecified; G47.33 Obstructive sleep apnea (adult) (pediatric); Z79.51 Long term (current) use of inhaled steroids; Z80.49 Family history of malignant neoplasm of other genital organs; Z82.62 Family history of osteoporosis; Z83.3 Family history of diabetes mellitus; Z90.721 Acquired absence of ovaries, unilateral; Z82.49 Family history of ischemic heart disease and other diseases of the circulatory system; Z98.1 Arthrodesis status; Z98.84 Bariatric surgery status
CPT/HCPCS: 96366 ×2; 96375 ×2; 96376; 96365; 99285; 36415; 94640 ×3; 93005; 93306; 85379; 83880; 80061; 80053; 82150; 82550; 82553; 83690; 83735; 84484; 85025; 85610; 85730 ×2; 71046; 76705; G0378 ×2; J1644 ×2; J2405 ×2

== ENCOUNTER → 2018-01-31 | Outpatient (CLI) | payer OTHER ==
--- NOTE | 2018-01-31 10:31 | NM ---
EXAMINATION TYPE: NM hepatobiliary w EF DATE OF EXAM: 01/31/2018 COMPARISON: Correlation ultrasound 01/11/2018 HISTORY: 52 year-old female with nausea TECHNIQUE: After the intravenous administration of 5.32 mCi Tc 99m Mebrofenin hepatobiliary scintigra phy is performed. Immediate images post injection. FINDINGS: There is satisfactory initial accumulation of tracer by the liver. The gallbladder is visualized wit hin 28 minutes. The small bowel activity is noted within 10 minutes. At one hour 8 ounces of oral e nsure plus is given to mimic CCK and gallbladder ejection fraction is calculated at 52 %, in the norm al range. Therefore there is no scintigraphic evidence of cystic or common bile duct obstruction to suggest acute cholecystitis or gallbladder dyskinesia. IMPRESSION: Exam is within normal limits.
== END | disposition home or self-care (01) ==
LOC: RADNMMAIN 07:04
PROVIDERS: ATTEND Family Medicine
DX: R11.0 Nausea (principal)
CPT/HCPCS: 78226; A9537

== ENCOUNTER 2018-02-21 08:51 | Day surgery (SDC) | payer OTHER ==
[2018-02-15 09:58] VITALS: BMI 43.9
[2018-02-21 09:48] VITALS: TEMP 98.6
[2018-02-21] MEDS ORDERED: LACTATED RINGERS 1,000 ML IV ONE (10:38)
[2018-02-21] MEDS ORDERED: ONDANSETRON 4 MG/2 ML VIAL IVP ONE (10:38)
[2018-02-21] MEDS ORDERED: LIDOCAINE 1% 20 ML VIAL (10MG/ML) FOR IV START INTRADERMA PRN (10:49)
[2018-02-21] MEDS ORDERED: PROPOFOL 10 MG/ML 20 ML VIAL IV ONE (10:57)
[2018-02-21] MEDS ORDERED: LACTATED RINGERS 1,000 ML IV SCH (11:00)
[2018-02-21 11:23] VITALS: RESP 18
--- NOTE | 2018-02-21 11:24 | P.PCN ---
Date of Procedure: 02/21/18 Procedure(s) Performed: Procedure: Esophagogastroduodenoscopy and biopsy. Preoperative diagnosis: Reflux symptoms and atypical chest pains. Postoperative diagnosis: 1. Small sliding hiatal hernia with no obvious esophagitis or complicated reflux disease. 2. S/P sleeve gastrectomy with mild gastritis. 3. Antral biopsies obtained from the duodenum, antrum and esophagus. Preparation sedation: Was provided by anesthesia. Brief clinical history: The patient is a 52-year-old female who is scheduled for this evaluation because of history of nausea atypical chest pains and intermittent reflux symptoms. The patient had sleeve gastrectomy around 3 years ago and she had a hiatal hernia surgery in the past as well. This evaluation is to assess for esophagitis, complicated reflux disease or other pathology. Procedure: With the patient on her left lateral decubitus position and after informed consent and adequate sedation, I passed the Olympus-GIF [id number] video upper endoscope through the cricopharyngeus down the esophagus. GE junction was around 39 cm from the incisors and there was a small sliding hiatal hernia but no obvious esophagitis or complicated reflux disease. The endoscope was then passed into the stomach which was insufflated with air and inspected in detail including the retroflex view in the cardia. The patient had prior sleeve gastrectomy and there was mild gastritis of the stomach but no ulcers, gastric outlet obstruction or bleeding. Pyloric channel, duodenal bulb, post bulbar area and descending duodenum appeared within normal limits. I obtained multiple biopsies from the duodenum, antrum and esophagus then the endoscope was withdrawn. The patient tolerated the procedure well. Plan: The patient was reassured. Will await biopsy results and make further plans based on her course and biopsy results. We will keep you updated on her progress.
[2018-02-21 11:59] VITALS: BP 120/78; PULSE 78
== END 2018-02-21 11:59 | disposition home or self-care (01) ==
LOC: ORWHC2ENDO 08:51
DX: K29.50 Unspecified chronic gastritis without bleeding (principal); K31.9 Disease of stomach and duodenum, unspecified; K20.9 Esophagitis, unspecified; K44.9 Diaphragmatic hernia without obstruction or gangrene; Z98.84 Bariatric surgery status; Z90.3 Acquired absence of stomach [part of]; J45.909 Unspecified asthma, uncomplicated; M19.90 Unspecified osteoarthritis, unspecified site; G47.33 Obstructive sleep apnea (adult) (pediatric); E07.9 Disorder of thyroid, unspecified; I42.9 Cardiomyopathy, unspecified; D50.9 Iron deficiency anemia, unspecified; Z99.89 Dependence on other enabling machines and devices; Z79.899 Other long term (current) drug therapy; Z79.51 Long term (current) use of inhaled steroids; Z88.1 Allergy status to other antibiotic agents; Z88.5 Allergy status to narcotic agent; Z91.013 Allergy to seafood; Z91.018 Allergy to other foods; Z88.6 Allergy status to analgesic agent
CPT/HCPCS: 88305; 43239; J2405; J2704

== ENCOUNTER 2018-03-04 20:03 | Inpatient (IN) | payer OTHER ==
[2018-03-04] MEDS ORDERED: IPRATROPIUM-ALBUTEROL 3 ML NEB INHALATION STA (21:19)
--- NOTE | 2018-03-04 21:22 | ED ---
URI HPI - General Chief Complaint: Upper Respiratory Infection Stated Complaint: Shortness of Breath Time Seen by Provider: 03/04/18 21:06 Source: patient Mode of arrival: EMS Limitations: no limitations - History of Present Illness Initial Comments: Adilene is a 52-year-old female with past medical history of asthma for which she has intermittently needed to use albuterol nebulizers. Patient reports that for the past week she has had runny nose congestion cough and frequent wheezing. She reports she's been using her nebulizer multiple times a day with only temporary improvement in her difficulty breathing. She reports she was seen at an outside facility last week and diagnosed with a sinus infection she was prescribed oral antibiotics, Flonase and Tessalon Perles for her symptoms. Patient has continued to worsen and have worsening cough and shortness of breath. She return to be reevaluated the urgent care today at which time she started be having an asthma attack with an oxygen saturation 70s. She was treated with breathing treatments and 125 mg of Solu-Medrol prior to being transferred to our facility for further evaluation. Upon arrival patient reports a breathing treatments of helped somewhat however she continues to feel short of breath and have a nonproductive wheezing cough. She has noted have an oxygen saturation of 93% on 4 L nasal cannula. - Related Data Home Medications Medication Instructions Recorded Confirmed Cholecalciferol [Vitamin D3] 5,000 unit PO DAILY 04/16/17 03/04/18 Levalbuterol Tartrate [Xopenex Hfa 2 puff INHALATION RT-QID PRN 04/16/17 Inhaler] Montelukast [Singulair] 10 mg PO DAILY 04/16/17 03/04/18 Diltiazem HCl [Cartia Xt] 300 mg PO DAILY 10/31/17 03/04/18 Ferrous Sulfate [Iron (65 MG 65 mg PO BID 10/31/17 03/04/18 Elemental)] Albuterol Nebulized [Ventolin 2.5 mg INHALATION RT-Q4H PRN 01/10/18 03/04/18 Nebulized] L.acidoph,Paracasei, B.lactis 1 cap PO DAILY 01/10/18 03/04/18 [Probiotic] Multivitamins, Thera [Multivitamin 1 tab PO DAILY 01/10/18 03/04/18 (formulary)] Venlafaxine HCl ER [Effexor XR] 37.5 mg PO DAILY 01/10/18 03/04/18 Fluticasone Propionate [Flovent 3 puff INHALATION RT-BID 02/15/18 03/04/18 Hfa 220 mcg] Omeprazole 40 mg PO DAILY 02/15/18 03/04/18 Vitamin B Complex 1 each PO DAILY 02/15/18 03/04/18 Benzonatate [Tessalon Perles] 100 mg PO TID 03/04/18 03/04/18 Cefdinir [Omnicef] 300 mg PO BID 03/04/18 03/04/18 Fluticasone Nasal [place] [Flonase 1 spray EA NOSTRIL DAILY 03/04/18 03/04/18 Nasal [place]] Allergies Allergy/AdvReac Type Severity Reaction Status Date / Time ciprofloxacin Allergy Itching Verified 03/04/18 21:15 gluten AdvReac Nausea & Verified 03/04/18 21:15 Vomiting & Diarrhea hydromorphone [From Dilaudid] AdvReac Nausea & Verified 03/04/18 21:15 Vomiting NSAIDS (Non-Steroidal AdvReac Abdominal Verified 03/04/18 21:15 Anti-Inflamma Pain shellfish derived AdvReac Nausea & Verified 03/04/18 21:15 Vomiting Review of Systems ROS Statement: Those systems with pertinent positive or pertinent negative responses have been documented in the HPI. ROS Other: All systems not noted in ROS Statement are negative. Past Medical History Past Medical History: Asthma, GERD/Reflux, Osteoarthritis (OA), Sleep Apnea/CPAP /BIPAP, Thyroid Disorder Additional Past Medical History / Comment(s): hx Cardiomyopathy thought viral, occasional tachycardia especially when eats and with activity, ITZ with CPAP use , near syncope when she had the flu and with a dental procedure-checked fitbit and heart rate in 50s, thyroid nodules with neg bx. Spinal stenosis. Gluten sensitivity. Vitamin D deficiency, iron deficiency anemia. recent nausea,and diarrhea and chest pain, abdominal pain and pain between shoulder blades, migraines,bruising more easily History of Any Multi-Drug Resistant Organisms: None Reported Past Surgical History: Appendectomy, Back Surgery, Bariatric Surgery, Section, Heart Catheterization, Hysterectomy, Orthopedic Surgery, Tonsillectomy Additional Past Surgical History / Comment(s): 2012 gastric sleeve, with hiatal hernia repair 11/2016 spinal fusion/decompression L4-L5 and S1, bilateral shoulder arthroscopies, 3 laparotomies d/t pain/ovarian cyst/adhesions, hysterectomy with R oophorectomy, 2 D&Cs after miscarriages, lipoma removed from left side of back, 2016 Cardiac cath-normal, colonoscopy, EGD's Past Anesthesia/Blood Transfusion Reactions: Motion Sickness, Postoperative Nausea & Vomiting (PONV) Additional Past Anesthesia/Blood Transfusion Reaction / Comment(s): difficult iv start Past Psychological History: Anxiety, Depression Smoking Status: Never smoker - Past Family History Father Family Medical History: Cancer, Diabetes Mellitus, Renal Disease Additional Family Medical History / Comment(s): Father is from kidney failure d/t diabetes. He at the age of 68yrs. Mother Family Medical History: Cancer, Congestive Heart Failure (CHF), Coronary Artery Disease (CAD), Diabetes Mellitus, Myocardial Infarction ([place]), Thyroid Disorder Additional Family Medical History / Comment(s): Mother has had multiple MIs with first one at about age 72 yrs. She has had CABG and has 5 cardiac stents. She is in remision from uterine cancer and has osteoporosis. She is 81 yrs old. General Exam - General Exam Comments Initial Comments: Physical Exam GENERAL: Patient in mild respiratory distress Patient is well-developed and well-nourished. Patient is nontoxic and well-hydrated HENT: Normocephalic, Atraumatic. EYES: PERRL, EOMI PULMONARY: Tachypneic with expiratory wheezing CARDIOVASCULAR: There is a regular rate and rhythm without any murmurs gallops or rubs. ABDOMEN: Soft and nontender with normal bowel sounds. SKIN: Skin is clear with no lesions or rashes and otherwise unremarkable. : Deferred NEUROLOGIC: Patient is alert and oriented x3. Moving all extremities spontaneously MUSCULOSKELETAL: Normal extremities with adequate strength and full range of motion. No lower extremity swelling or edema. No calf tenderness. PSYCHIATRIC: Normal psychiatric evaluation. Limitations: no limitations Limitations: no limitations Course Vital Signs 03/04/18 03/04/18 03/04/18 20:14 22:00 23:00 Temperature 98.3 F Pulse Rate 89 87 Respiratory 22 Rate Blood Pressure 137/100 142/75 142/92 O2 Sat by Pulse 97 93 L 97 Oximetry 03/04/18 03/04/18 03/05/18 23:17 23:25 00:00 Temperature Pulse Rate 80 77 Respiratory 22 Rate Blood Pressure 130/74 O2 Sat by Pulse 97 Oximetry Medical Decision Making - Medical Decision Making Patient was seen and evaluated history is obtained from the patient Patient currently being treated for upper respiratory infection with oral was born Patient with progressively worsening cough shortness of breath and generalized malaise and hypoxia, patient's oxygen saturation 90-93% on 3-4 L nasal cannula Labs and imaging were ordered Patient is influenza-negative Labs with some mild leukocytosis chest x-ray suggestive of right lower lobe pneumonia At this time I will plan to admit the patient for pneumonia with hypoxia in a patient with underlying asthma. Treatment for community-acquired pneumonia was ordered. Patient care was discussed with Dr. Victor of the [facility] per the patient's primary care physician Dr. Mcmillan's preference. Dr. Victor accepted the admission for pneumonia and hypoxia - Lab Data Result diagrams: 03/04/18 21:40 03/04/18 21:40 Lab Results 03/04/18 03/04/18 03/04/18 Range/Units 21:40 21:40 21:40 WBC 14.5 H (3.8-10.6) k/uL RBC 4.83 (3.80-5.40) m/uL Hgb 13.8 (11.4-16.0) gm/dL Hct 41.3 (34.0-46.0) % MCV 85.5 (80.0-100.0) fL MCH 28.6 (25.0-35.0) pg MCHC 33.4 (31.0-37.0) g/dL RDW 14.4 (11.5-15.5) % Plt Count 234 (150-450) k/uL Neutrophils % 92 % Lymphocytes % 5 % Monocytes % 2 % Eosinophils % 1 % Basophils % 0 % Neutrophils # 13.3 H (1.3-7.7) k/uL Lymphocytes # 0.7 L (1.0-4.8) k/uL Monocytes # 0.3 (0-1.0) k/uL Eosinophils # 0.1 (0-0.7) k/uL Basophils # 0.0 (0-0.2) k/uL PT (9.0-12.0) sec INR (<1.2) APTT (22.0-30.0) sec Sodium 141 (137-145) mmol/L Potassium 3.8 (3.5-5.1) mmol/L Chloride 105 (98-107) mmol/L Carbon Dioxide 26 (22-30) mmol/L Anion Gap 10 mmol/L BUN 16 (7-17) mg/dL Creatinine 0.66 (0.52-1.04) mg/dL Est GFR (CKD-EPI)AfAm >90 (>60 ml/min/1.73 sqM) Est GFR (CKD-EPI)NonAf >90 (>60 ml/min/1.73 sqM) Glucose 136 H (74-99) mg/dL Calcium 9.5 (8.4-10.2) mg/dL Magnesium 2.2 (1.6-2.3) mg/dL Total Bilirubin 0.4 (0.2-1.3) mg/dL AST 25 (14-36) U/L ALT 38 (9-52) U/L Alkaline Phosphatase 96 (38-126) U/L Troponin I (0.000-0.034) ng/mL Total Protein 7.5 (6.3-8.2) g/dL Albumin 4.7 (3.5-5.0) g/dL Influenza Type A RNA Not Detected (Not Detectd) Influenza Type B (PCR) Not Detected (Not Detectd) 03/04/18 03/04/18 Range/Units 21:40 21:40 WBC (3.8-10.6) k/uL RBC (3.80-5.40) m/uL Hgb (11.4-16.0) gm/dL Hct (34.0-46.0) % MCV (80.0-100.0) fL MCH (25.0-35.0) pg MCHC (31.0-37.0) g/dL RDW (11.5-15.5) % Plt Count (150-450) k/uL Neutrophils % % Lymphocytes % % Monocytes % % Eosinophils % % Basophils % % Neutrophils # (1.3-7.7) k/uL Lymphocytes # (1.0-4.8) k/uL Monocytes # (0-1.0) k/uL Eosinophils # (0-0.7) k/uL Basophils # (0-0.2) k/uL PT 10.2 (9.0-12.0) sec INR 0.9 (<1.2) APTT 23.3 (22.0-30.0) sec Sodium (137-145) mmol/L Potassium (3.5-5.1) mmol/L Chloride (98-107) mmol/L Carbon Dioxide (22-30) mmol/L Anion Gap mmol/L BUN (7-17) mg/dL Creatinine (0.52-1.04) mg/dL Est GFR (CKD-EPI)AfAm (>60 ml/min/1.73 sqM) Est GFR (CKD-EPI)NonAf (>60 ml/min/1.73 sqM) Glucose (74-99) mg/dL Calcium (8.4-10.2) mg/dL Magnesium (1.6-2.3) mg/dL Total Bilirubin (0.2-1.3) mg/dL AST (14-36) U/L ALT (9-52) U/L Alkaline Phosphatase (38-126) U/L Troponin I <0.012 (0.000-0.034) ng/mL Total Protein (6.3-8.2) g/dL Albumin (3.5-5.0) g/dL Influenza Type A RNA (Not Detectd) Influenza Type B (PCR) (Not Detectd) Disposition Clinical Impression: Pneumonia, Hypoxia, Asthma Disposition: ADMITTED IP TO THIS HOSP Is patient prescribed a controlled substance at d/c from ED?: No
[2018-03-04 21:55] LABS: Basophils % (A) 0 %; Eosinophils # (A) 0.1 k/uL (0-0.7); Eosinophils % (A) 1 %; HCT 41.3 % (34.0-46.0); HGB 13.8 gm/dL (11.4-16.0); Lymphocytes # (A) 0.7 k/uL (1.0-4.8); Lymphocytes % (A) 5 %; MCH 28.6 pg (25.0-35.0); MCHC 33.4 g/dL (31.0-37.0); MCV 85.5 fL (80.0-100.0); Mean Platelet Volume 7.4; Monocytes # (A) 0.3 k/uL (0-1.0); Monocytes % (A) 2 %; Neutrophils # (A) 13.3 k/uL (1.3-7.7); Neutrophils % (A) 92 %; Platelet Count 234 k/uL (150-450); RBC 4.83 m/uL (3.80-5.40); RDW 14.4 % (11.5-15.5); WBC 14.5 k/uL (3.8-10.6)
[2018-03-04 22:01] LABS: Chloride 105 mmol/L (98-107)
[2018-03-04 22:04] LABS: ALT 38 U/L (9-52); AST 25 U/L (14-36); Albumin 4.7 g/dL (3.5-5.0); Alkaline Phosphatase 96 U/L (38-126); Anion Gap 10 mmol/L; Blood Urea Nitrogen 16 mg/dL (7-17); Calcium 9.5 mg/dL (8.4-10.2); Carbon Dioxide 26 mmol/L (22-30); Glucose 136 mg/dL (74-99); Magnesium 2.2 mg/dL (1.6-2.3); Potassium 3.8 mmol/L (3.5-5.1); Sodium 141 mmol/L (137-145); Total Bilirubin 0.4 mg/dL (0.2-1.3); Total Protein 7.5 g/dL (6.3-8.2)
[2018-03-04 22:08] LABS: INR 0.9 (<1.2); Partial Thromboplastin Time 23.3 sec (22.0-30.0); Prothrombin Time 10.2 sec (9.0-12.0)
--- NOTE | 2018-03-04 22:58 | XR ---
EXAMINATION TYPE: XR chest 2V DATE OF EXAM: 03/04/2018 COMPARISON: 01/10/2018 HISTORY: Short of breath TECHNIQUE: Frontal and lateral views of the chest are obtained. FINDINGS: There is evidence of a minimal infiltrate at the right lung base posteriorly. The other frank ng luevano are clear. Heart and mediastinum are normal. There is no heart failure. Bony thorax is inta ct. IMPRESSION: New minimal right lower lobe infiltrate compared to last exam. Inspiration decreased com pared to last exam.
[2018-03-04] MEDS ORDERED: AZITHROMYCIN 500 MG in SODIUM CHLORIDE 0.9% 250 ML IVPB STA (23:24)
[2018-03-04] MEDS ORDERED: NALOXONE 0.4 MG/ML 1 ML VIAL IV PRN (23:28)
--- NOTE | 2018-03-05 00:07 | P.HPIM ---
History of Present Illness H&P Date: 03/04/18 Patient is a 52-year-old female with a past medical history of asthma, deficits 60 surgery (5 years ago) and history of viral myocarditis presented to the ED for sinus congestion, cough, and shortness of breath. The patient notes that her symptoms started a week ago when she began having nasal congestion with increasing cough with wheezing. Patient stated that she was seen at a facility and was prescribed antibiotics with a Medrol Dosepak a week ago which provided little relief. She was subsequently seen at urgent care center and was noted to be hypoxic with SpO2 in the 70s with audible wheezing. She was actually sent to the ED. The patient notes that she had been using her inhalers multiple times daily which did alleviate her symptoms. She otherwise denied fever, chills, nausea, vomiting, diarrhea, abdominal pain, dizziness, dysuria, recent travel, or sick contacts. In the ED the patient had a comprehensive workup with a chest x-ray that showed a right lower lobe infiltrate, and WBC count 14.5, hemoglobin 13.8, platelets 234, and creatinine 0.66. Patient was noted to be saturating 90-97% with 4 L nasal cannula. Review of Systems Pertinent positives and negatives as discussed in HPI, a complete review of systems was performed and all other systems are negative. Past Medical History Past Medical History: Asthma, GERD/Reflux, Osteoarthritis (OA), Sleep Apnea/CPAP /BIPAP, Thyroid Disorder Additional Past Medical History / Comment(s): hx Cardiomyopathy thought viral, occasional tachycardia especially when eats and with activity, ITZ with CPAP use , near syncope when she had the flu and with a dental procedure-checked fitbit and heart rate in 50s, thyroid nodules with neg bx. Spinal stenosis. Gluten sensitivity. Vitamin D deficiency, iron deficiency anemia. recent nausea,and diarrhea and chest pain, abdominal pain and pain between shoulder blades, migraines,bruising more easily History of Any Multi-Drug Resistant Organisms: None Reported Past Surgical History: Appendectomy, Back Surgery, Bariatric Surgery, Section, Heart Catheterization, Hysterectomy, Orthopedic Surgery, Tonsillectomy Additional Past Surgical History / Comment(s): 2012 gastric sleeve, with hiatal hernia repair 11/2016 spinal fusion/decompression L4-L5 and S1, bilateral shoulder arthroscopies, 3 laparotomies d/t pain/ovarian cyst/adhesions, hysterectomy with R oophorectomy, 2 D&Cs after miscarriages, lipoma removed from left side of back, 2016 Cardiac cath-normal, colonoscopy, EGD's Past Anesthesia/Blood Transfusion Reactions: Motion Sickness, Postoperative Nausea & Vomiting (PONV) Additional Past Anesthesia/Blood Transfusion Reaction / Comment(s): difficult iv start Past Psychological History: Anxiety, Depression Smoking Status: Never smoker - Past Family History Father Family Medical History: Cancer, Diabetes Mellitus, Renal Disease Additional Family Medical History / Comment(s): Father is from kidney failure d/t diabetes. He at the age of 68yrs. Mother Family Medical History: Cancer, Congestive Heart Failure (CHF), Coronary Artery Disease (CAD), Diabetes Mellitus, Myocardial Infarction ([place]), Thyroid Disorder Additional Family Medical History / Comment(s): Mother has had multiple MIs with first one at about age 72 yrs. She has had CABG and has 5 cardiac stents. She is in remision from uterine cancer and has osteoporosis. She is 81 yrs old. Medications and Allergies Home Medications Medication Instructions Recorded Confirmed Type Cholecalciferol [Vitamin D3] 5,000 unit PO DAILY 04/16/17 03/04/18 History Levalbuterol Tartrate [Xopenex Hfa 2 puff INHALATION RT-QID PRN 04/16/17 History Inhaler] Montelukast [Singulair] 10 mg PO DAILY 04/16/17 03/04/18 History Diltiazem HCl [Cartia Xt] 300 mg PO DAILY 10/31/17 03/04/18 History Ferrous Sulfate [Iron (65 MG 65 mg PO BID 10/31/17 03/04/18 History Elemental)] Albuterol Nebulized [Ventolin 2.5 mg INHALATION RT-Q4H PRN 01/10/18 03/04/18 History Nebulized] L.acidoph,Paracasei, B.lactis 1 cap PO DAILY 01/10/18 03/04/18 History [Probiotic] Multivitamins, Thera [Multivitamin 1 tab PO DAILY 01/10/18 03/04/18 History (formulary)] Venlafaxine HCl ER [Effexor XR] 37.5 mg PO DAILY 01/10/18 03/04/18 History Fluticasone Propionate [Flovent 3 puff INHALATION RT-BID 02/15/18 03/04/18 History Hfa 220 mcg] Omeprazole 40 mg PO DAILY 02/15/18 03/04/18 History Vitamin B Complex 1 each PO DAILY 02/15/18 03/04/18 History Benzonatate [Tessalon Perles] 100 mg PO TID 03/04/18 03/04/18 History Cefdinir [Omnicef] 300 mg PO BID 03/04/18 03/04/18 History Fluticasone Nasal [place] [Flonase 1 spray EA NOSTRIL DAILY 03/04/18 03/04/18 History Nasal [place]] Allergies Allergy/AdvReac Type Severity Reaction Status Date / Time ciprofloxacin Allergy Itching Verified 03/04/18 21:15 gluten AdvReac Nausea & Verified 03/04/18 21:15 Vomiting & Diarrhea hydromorphone [From Dilaudid] AdvReac Nausea & Verified 03/04/18 21:15 Vomiting NSAIDS (Non-Steroidal AdvReac Abdominal Verified 03/04/18 21:15 Anti-Inflamma Pain shellfish derived AdvReac Nausea & Verified 03/04/18 21:15 Vomiting Physical Exam Vitals: Vital Signs Temp Pulse Resp BP Pulse Ox 03/04/18 23:25 77 03/04/18 23:17 80 03/04/18 23:00 87 142/92 97 03/04/18 22:00 142/75 93 L 03/04/18 20:14 98.3 F 89 22 137/100 97 Intake and Output 03/04/18 03/04/18 03/05/18 14:59 22:59 06:59 Other: Weight 102.058 kg General: [non toxic], [no distress], [appears at stated age], [morbidly obese] Derm: [no unusual rashes/lesions] [no unusual ecchymoses], [warm], [dry] Head: [atraumatic], [normocephalic], [symmetric] Eyes: [EOMI], [no lid lag], [anicteric sclera], [pupils equal round reactive to light] ENT: [Nose and ears atraumatic], [no thrush], [no pharyngeal erythema] Neck: [No thyromegaly], [no cervical lymphadenopathy], [trachea midline], [ supple] Mouth: [no lip lesion], [mucus membranes moist] Cardiovascular: [S1S2 reg], [no murmur], [positive posterior tibial pulse bilateral], [no edema], [capillary refill less than 2 seconds] Lungs: [Mild bilateral rhonchi with minimal wheezing throughout], [no rales] , [ no accessory muscle use] Abdominal: [soft], [ nontender to palpation], [no guarding], [no appreciable organomegaly], [normal bowel sounds] Ext: [no gross muscle atrophy], [muscle strength 5 out of 5 in all 4 extremities grossly], [no contractures], Neuro: [ CN II-XI grossly intact], [light touch intact all 4 extremities], [ finger to nose within normal limits], Psych: [Alert], [oriented], [appropriate affect] Results CBC & Chem 7: 03/04/18 21:40 03/04/18 21:40 Labs: Abnormal Lab Results - Last 24 Hours (Table) 03/04/18 03/04/18 Range/Units 21:40 21:40 WBC 14.5 H (3.8-10.6) k/uL Neutrophils # 13.3 H (1.3-7.7) k/uL Lymphocytes # 0.7 L (1.0-4.8) k/uL Glucose 136 H (74-99) mg/dL Assessment and Plan Plan: Acute asthma exacerbation in the setting of Community acquired pneumonia and acute sinusitis -C/w azithromycin and ceftriaxone -IV fluids -Solu-Medrol 60 mg every 6 hourly -DuoNebs History of viral myocarditis -Echocardiogram from 12/2017 revealed preserved ejection fraction -Currently on 30 day event monitor for palpitations DVT//GI prophylaxis -Lovenox -Protonix The patient is admitted with an anticipated greater than 2 midnight stay for evaluation of acute asthma exacerbation. CODE STATUS: Full code Discussed with: Patient Anticipated discharge date: 03/07/[address]: Home A total of 45 minutes was spent on the care of this complex patient more than 50 % of the time was spent in counseling and care coordination.
[2018-03-05] MEDS: methylPREDNISolone SOD SUCCI 125 MG/2 ML VIAL IV SCH ×4 (02:02→17:34)
[2018-03-05] MEDS: IPRATROPIUM-ALBUTEROL 3 ML NEB INHALATION SCH ×5 (04:40→19:56)
[2018-03-05] MEDS: ACETAMINOPHEN TAB 325 MG TAB PO PRN ×2 (08:21→15:09)
[2018-03-05] MEDS: DILTIAZEM CD 300 MG CAP.ER.24H PO SCH (08:34)
[2018-03-05] MEDS: MONTELUKAST 10 MG TAB PO SCH (08:34)
[2018-03-05] MEDS: VENLAFAXINE HCL ER 37.5 MG CAP PO SCH (08:34)
[2018-03-05] MEDS: PANTOPRAZOLE 40 MG TABLET PO SCH (08:34)
[2018-03-05] MEDS: BENZONATATE 100 MG CAP PO SCH ×3 (08:34→21:05)
[2018-03-05] MEDS: FERROUS SULFATE 325 MG TAB PO SCH ×2 (08:34→21:05)
[2018-03-05] MEDS: ENOXAPARIN 40 MG/0.4 ML SYRINGE SQ SCH (08:34)
[2018-03-05 08:58] LABS: HCT 40.5 % (34.0-46.0); HGB 13.5 gm/dL (11.4-16.0); MCH 28.8 pg (25.0-35.0); MCHC 33.3 g/dL (31.0-37.0); MCV 86.6 fL (80.0-100.0); Platelet Count 206 k/uL (150-450); RBC 4.68 m/uL (3.80-5.40); RDW 14.5 % (11.5-15.5); WBC 12.2 k/uL (3.8-10.6)
[2018-03-05 10:20] LABS: Anion Gap 11 mmol/L; Blood Urea Nitrogen 18 mg/dL (7-17); Calcium 9.8 mg/dL (8.4-10.2); Carbon Dioxide 23 mmol/L (22-30); Chloride 107 mmol/L (98-107); Glucose 130 mg/dL (74-99); Sodium 141 mmol/L (137-145)
[2018-03-05 10:21] LABS: Potassium 4.9 mmol/L (3.5-5.1)
[2018-03-05] MEDS ORDERED: IPRATROPIUM-ALBUTEROL 3 ML NEB INHALATION PRN (11:38)
--- NOTE | 2018-03-05 11:40 | P.PN ---
Subjective Progress Note Date: 03/05/18 Patient reporting that she was diagnosed with upper respiratory infection over a week ago in urgent care and was given Ceftinir and took a Medrol Dosepak which she had been on home. She reports poor control of her asthma over the last year. Currently on Cardizem for unknown tachycardia. Still complain of nasal and head congestion this morning. Still complain of shortness of air wheezes. Patient reports that her sats were in the high 80s before being placed on oxygen, patient afebrile overnight Objective - Vital Signs Vital signs: Vital Signs Temp 98.2 F 03/05/18 07:00 Pulse 88 03/05/18 09:34 Resp 18 03/05/18 07:00 BP 129/74 03/05/18 07:00 Pulse Ox 97 03/05/18 07:00 Intake & Output 03/04/18 03/05/18 03/05/18 18:59 06:59 18:59 Weight 102.058 kg - Exam Constitutional: No acute distress, conversant, pleasant Eyes: Anicteric sclerae, moist conjunctiva, no lid-lag, PERRLA ENMT: NC/AT,Oropharynx clear, no erythema, exudates Neck:Supple, FROM, no masses, or JVD, No carotid bruits; No thyromegaly Lungs: Poor inspiratory effort diminished in the bases and expiratory wheezes, no respiratory distress Cardiovascular: Heart regular in rate and rhythm, No murmurs, gallops, or rubs no peripheral edema Abdominal: Soft Nontender, nom distended, no guarding, no rebound or rigidity, Normoactive bowel sounds No hepatomegaly, No splenomegaly, No palpable mass No abdominal wall hernia noted Skin: Normal temperature, tone, texture, turgor, No induration No subcutaneous nodules, No rash, lesions, No ulcers Extremities:No digital cyanosis No clubbing, Pedal pulses intact and symmetrical Radial pulses intact and symmetrical Normal gait and station, No calf tenderness Psychiatric: Alert and oriented to person, place and time, Appropriate affect Intact judgement Neuro: Muscles Strength 5/5 in all 4 extremities, Sensation to light touch grossly present throughout, Cranial nerves II-XII grossly intact. No focal sensory deficits - Labs CBC & Chem 7: 03/05/18 08:12 03/05/18 08:12 Labs: Abnormal Lab Results - Last 24 Hours (Table) 03/04/18 03/04/18 03/05/18 Range/Units 21:40 21:40 08:12 WBC 14.5 H 12.2 H (3.8-10.6) k/uL Neutrophils # 13.3 H (1.3-7.7) k/uL Lymphocytes # 0.7 L (1.0-4.8) k/uL BUN (7-17) mg/dL Glucose 136 H (74-99) mg/dL 03/05/18 Range/Units 08:12 WBC (3.8-10.6) k/uL Neutrophils # (1.3-7.7) k/uL Lymphocytes # (1.0-4.8) k/uL BUN 18 H (7-17) mg/dL Glucose 130 H (74-99) mg/dL Assessment and Plan (1) Sepsis Narrative/Plan: * Afebrile currently hemodynamically stable * Noted leukocytosis improving down to 12.2, chest x-ray confirming right * Continue current antibiotic regimen azithromycin and Rocephin influenza negative will check urine and blood Current Visit: Yes Status: Acute Code(s): A41.9 - SEPSIS, UNSPECIFIED ORGANISM SNOMED Code(s): 49837806 (2) Asthma with exacerbation Narrative/Plan: * Failed outpatient treatment * Continue with systemic steroids IV Solu-Medrol, scheduled and when necessary DuoNeb bronchodilator breathing treatments * Supportive management with supplemental oxygen and Tessalon Perles * Pulmonary consulted patient does follow Dr. Quiñones outpatient Current Visit: No Status: Acute Code(s): J45.901 - UNSPECIFIED ASTHMA WITH ( ACUTE) EXACERBATION SNOMED Code(s): 830412073 (3) Pneumonia Narrative/Plan: Treatment as above Current Visit: Yes Status: Acute Code(s): J18.9 - PNEUMONIA, UNSPECIFIED ORGANISM SNOMED Code(s): 924087970 (4) Tachycardia Narrative/Plan: * Patient resumed on Cardizem will continue to monitor Current Visit: No Status: Chronic Code(s): R00.0 - TACHYCARDIA, UNSPECIFIED SNOMED Code(s): 0561173 Plan: * Dissipated discharge 2-3 days
[2018-03-05] MEDS: FLUTICASONE 50MCG/SPRAY NASAL 16GM EA NOSTRIL SCH (12:48)
[2018-03-05] MEDS: MULTIVITAMINS, THERA 1 EACH TAB PO SCH (13:18)
[2018-03-05 17:47] LABS: Appearance,Urine Clear (Clear); Bilirubin,Urine Negative (Negative); Blood,Urine Negative (Negative); Color,Urine Yellow; Glucose,Urine (UA) Negative (Negative); Ketones,Urine Trace (Negative); Leukocyte Esterase,Urine Negative (Negative); Nitrite,Urine Negative (Negative); PH, Urine 6.5 (5.0-8.0); Protein,Urine Trace (Negative); Specific Gravity,Urine 1.027 (1.001-1.035); Urobilinogen,Urine <2.0 mg/dL (<2.0)
[2018-03-06] MEDS ORDERED: IPRATROPIUM-ALBUTEROL 3 ML NEB ONE ×2 (02:45)
[2018-03-06] MEDS ORDERED: methylPREDNISolone SOD SUCCI 125 MG/2 ML VIAL ONE (02:45)
[2018-03-06] MEDS ORDERED: ACETAMINOPHEN TAB 325 MG TAB ONE (02:45)
[2018-03-06] MEDS: methylPREDNISolone SOD SUCCI 125 MG/2 ML VIAL IV SCH ×4 (05:26→18:15)
[2018-03-06] MEDS: IPRATROPIUM-ALBUTEROL 3 ML NEB INHALATION SCH ×5 (05:26→19:06)
[2018-03-06] MEDS ORDERED: SUMAtriptan SUCCINATE 6 MG/0.5 ML VIAL SQ STA ×2 (06:46→16:17)
[2018-03-06] MEDS: PANTOPRAZOLE 40 MG TABLET PO SCH (08:31)
[2018-03-06] MEDS: FERROUS SULFATE 325 MG TAB PO SCH ×2 (08:32→21:44)
[2018-03-06] MEDS: FLUTICASONE 50MCG/SPRAY NASAL 16GM EA NOSTRIL SCH (08:32)
[2018-03-06] MEDS: MONTELUKAST 10 MG TAB PO SCH (08:32)
[2018-03-06] MEDS: DILTIAZEM CD 300 MG CAP.ER.24H PO SCH (08:33)
[2018-03-06] MEDS: VENLAFAXINE HCL ER 37.5 MG CAP PO SCH (08:33)
[2018-03-06] MEDS: ENOXAPARIN 40 MG/0.4 ML SYRINGE SQ SCH (08:33)
[2018-03-06] MEDS: BENZONATATE 100 MG CAP PO SCH ×3 (08:33→21:47)
--- NOTE | 2018-03-06 09:23 | P.PN ---
Subjective Progress Note Date: 03/06/18 Patient denies any significant improvement of her symptoms, reports ongoing coughing nonproductive continues to wheeze. Complaining of headache and nasal congestion and her heart racing. Patient afebrile overnight Objective - Vital Signs Vital signs: Vital Signs Temp 98 F 03/06/18 05:00 Pulse 96 03/06/18 07:21 Resp 17 03/06/18 05:00 BP 121/71 03/06/18 05:00 Pulse Ox 88 L 03/06/18 07:08 Intake & Output 03/05/18 03/06/18 03/06/18 18:59 06:59 18:59 Intake Total 1530 1220 Balance 1530 1220 Intake: Intake, IV Titration 250 50 Amount Azithromycin 500 mg In 250 Sodium Chloride 0.9% 250 ml @ 250 mls/hr IVPB ONCE [facility] Rx#:[id number] cefTRIAXone 1,000 mg In 50 Sodium Chloride 0.9% 50 ml @ 100 mls/hr IVPB Q24H [facility] Rx#:[id number] Oral 1280 1170 Other: Voiding Method Toilet Toilet # Voids 3 1 # Bowel Movements 1 # [place] 0 - Exam Constitutional: No acute distress, conversant, pleasant Eyes: Anicteric sclerae, moist conjunctiva, no lid-lag, PERRLA ENMT: NC/AT,Oropharynx clear, no erythema, exudates Neck:Supple, FROM, no masses, or JVD, No carotid bruits; No thyromegaly Lungs: Poor inspiratory effort diminished in the bases and expiratory wheezes, no respiratory distress Cardiovascular: Heart regular in rate and rhythm, No murmurs, gallops, or rubs no peripheral edema Abdominal: Soft Nontender, nom distended, no guarding, no rebound or rigidity, Normoactive bowel sounds No hepatomegaly, No splenomegaly, No palpable mass No abdominal wall hernia noted Skin: Normal temperature, tone, texture, turgor, No induration No subcutaneous nodules, No rash, lesions, No ulcers Extremities:No digital cyanosis No clubbing, Pedal pulses intact and symmetrical Radial pulses intact and symmetrical Normal gait and station, No calf tenderness Psychiatric: Alert and oriented to person, place and time, Appropriate affect Intact judgement Neuro: Muscles Strength 5/5 in all 4 extremities, Sensation to light touch grossly present throughout, Cranial nerves II-XII grossly intact. No focal sensory deficits - Labs CBC & Chem 7: 03/05/18 08:12 03/05/18 08:12 Labs: Abnormal Lab Results - Last 24 Hours (Table) 03/05/18 03/05/18 Range/Units 08:12 17:10 BUN 18 H (7-17) mg/dL Glucose 130 H (74-99) mg/dL Urine Protein Trace H (Negative) Urine Ketones Trace H (Negative) Assessment and Plan (1) Acute respiratory failure with hypoxia Narrative/Plan: * Secondary to pneumonia superimposed on sepsis and asthma exacerbation * Continue with supplemental oxygen to keep sats 9092% and breathing treatments Current Visit: Yes Status: Acute Code(s): J96.01 - ACUTE RESPIRATORY FAILURE WITH HYPOXIA SNOMED Code(s): 40913708 (2) Sepsis Narrative/Plan: * Afebrile currently hemodynamically stable * Noted leukocytosis improving down to 12.2, chest x-ray confirming right * Continue current antibiotic regimen azithromycin and Rocephin influenza negative will check urine and blood Current Visit: Yes Status: Acute Code(s): A41.9 - SEPSIS, UNSPECIFIED ORGANISM SNOMED Code(s): 47699022 (3) Asthma with exacerbation Narrative/Plan: * Failed outpatient treatment * Continue with systemic steroids IV Solu-Medrol, scheduled and when necessary DuoNeb bronchodilator breathing treatments * Supportive management with supplemental oxygen and Tessalon Perles * We'll add Perforomist Mucinex and attempt to obtain a sputum culture today * Pulmonary consulted patient does follow Dr. Quiñones outpatient Current Visit: No Status: Acute Code(s): J45.901 - UNSPECIFIED ASTHMA WITH ( ACUTE) EXACERBATION SNOMED Code(s): 024103313 (4) Pneumonia Narrative/Plan: Treatment as above Current Visit: Yes Status: Acute Code(s): J18.9 - PNEUMONIA, UNSPECIFIED ORGANISM SNOMED Code(s): 181751453 (5) Tachycardia Narrative/Plan: * Patient resumed on Cardizem will continue to monitor Current Visit: No Status: Chronic Code(s): R00.0 - TACHYCARDIA, UNSPECIFIED SNOMED Code(s): 4831939 Plan: Disposition anticipated discharge 2-3 days
[2018-03-06] MEDS: guaiFENesin 600 MG TABLET.ER PO SCH ×2 (12:44→21:44)
[2018-03-06] MEDS: AZITHROMYCIN 500 MG TAB PO SCH (12:44)
[2018-03-06] MEDS: MULTIVITAMINS, THERA 1 EACH TAB PO SCH (12:44)
--- NOTE | 2018-03-06 15:28 | CONS ---
CONSULTATION This is a pulmonary critical care consultation. This is a 52-year-old female who I recently started seeing in the office for her severe persistent chronic bronchial asthma. She is a 52-year-old female with a history of severe asthma. She has had to use a number of medications to try to control her disease. Anyway, she comes into the hospital with about a 7-day history of increasing coughing, shortness of breath, phlegm production. She apparently went to the clinic and received any antibiotic and I had given her Medrol Dosepak, which she also took. Despite that, she continued to get worse. For that reason, she came into the emergency room. The patient received some breathing treatments and steroids and she was admitted with a diagnosis of acute asthma exacerbation. We are in the process of trying to qualify her for once of the newer biologics for her chronic bronchial asthma. It is a drug called Dupixent which is a monoclonal antibody interleukin 4 and 13. CURRENT HOME MEDICATIONS: Include vitamin D3, Xopenex HFA, Singulair, cardia XT, ferrous sulfate, albuterol nebulizer treatments, probiotics, multivitamins, Effexor, Flovent, omeprazole, vitamin B complex, Tessalon Perles, Omnicef, and Flonase nasal spray. ALLERGIES: Include CIPROFLOXACIN, GLUTEN, DILAUDID, NSAID, and SHELLFISH. She also has significant tachycardia to any beta agonist short or long-acting. PAST MEDICAL HISTORY: Positive for chronic bronchial asthma, GERD, osteoarthritis, sleep apnea syndrome, and hypothyroidism. 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 In addition, she uses CPAP for sleep apnea syndrome. She does have a history of gluten sensitivity, spinal stenosis, and migraines. SURGICAL HISTORY: Includes appendectomy, back surgery, bariatric surgery, , heart catheterization, hysterectomy, and tonsillectomy. She has also had some other procedures as noted in the dictation provided by the ER physician. SOCIAL HISTORY: She is a lifelong nonsmoker. FAMILY HISTORY: Positive for diabetes, chronic kidney disease, cancer, congestive heart failure, coronary artery disease, myocardial infarction, and thyroid disease. REVIEW OF SYSTEMS: CONSTITUTIONAL: Negative. NEUROLOGIC: Negative. HEENT: Nasal congestion and drainage, stuffiness. CARDIOVASCULAR: Negative. PULMONARY: Shortness of breath, chest tightness, wheezing, cough, phlegm production. GI/: Negative. RHEUMATOLOGIC/IMMUNOLOGIC: Negative. HEMATOLOGIC: Negative. ENDOCRINOLOGIC: Negative. DERMATOLOGIC: Negative. Current vital signs are reviewed/ They include a temperature 97.9, heart rate is 94, respiratory rate 20, blood pressure 151/93, mean 112, room air saturation 94%. She appears in no acute distress. HEENT examination is grossly unremarkable. Mucous membranes are moist. No oral lesions. Neck is supple. Full range of motion. No adenopathy or thyromegaly. Neck veins are flat. Cardiovascular examination reveals regular rhythm and rate. S1, S2 normal. No S3, S4, murmur. Lungs reveal some expiratory wheezes or rhonchi. Breath sounds are diminished. There is prolongation on forced maneuver. Adventitious lung sounds are more prominent on forced maneuver. Abdomen is soft, obese. Bowel sounds are heard. Extremities are intact. No cyanosis, clubbing, or edema. Skin without rash. Neurologic examination is brief but nonfocal. LAB DATA: Reviewed. White count 12.2, hemoglobin 13.5, hematocrit 40.5, platelet count 206,000. PT, INR, PTT all normal. Sodium, potassium, chloride, CO2 all normal. Anion gap normal. BUN and creatinine were 18 and 0.62. Urine is negative. Influenza studies were negative. Chest x-ray shows possible new minimal right lower lobe infiltrate. It could just relate to some underlying atelectasis. The rest of the chest x-ray looks pretty good. EKG shows normal sinus rhythm. Current medications are appropriate. They include Zithromax and ceftriaxone for possible pneumonia right lower lobe. She is also on Tessalon Perles, DuoNeb, formoterol, Pulmicort, Singulair, and steroids. ASSESSMENT: 1. Asthma exacerbation complicated by purulent tracheobronchitis and possible bronchial pneumonia right lower lobe. 2. History of gastroesophageal reflux disease. 3. History of sleep apnea syndrome. 4. Morbid obesity. 5. Hypothyroidism. 6. Osteoarthritis. 7. Vitamin D deficiency. 8. Multiple other medical problems and comorbidities as listed above. PLAN: The patient is on appropriate medications. In advance, we note that the base beta agonists are going to cause tachycardia. She understands that. She is willing to accept those side effects given the fact that she knows that will help her in the end. Will continue to follow her closely. Post discharge will follow up with her in the office. Will continue to work on getting her one of the new biologics for severe persistent chronic bronchial asthma. MMODL / IJN: [id number] /
[2018-03-06] MEDS: BUDESONIDE 1 MG/2 ML NEBU INHALATION SCH (19:06)
[2018-03-06] MEDS: FORMOTEROL FUMARATE 20 MCG/2 ML NEBU INHALATION SCH (19:06)
[2018-03-06] MEDS ORDERED: guaiFENesin 600 MG TABLET.ER PO SCH (21:00)
[2018-03-06] MEDS: ACETAMINOPHEN TAB 325 MG TAB PO PRN (21:44)
[2018-03-07] MEDS: IPRATROPIUM-ALBUTEROL 3 ML NEB INHALATION SCH ×7 (00:20→23:24)
[2018-03-07] MEDS: methylPREDNISolone SOD SUCCI 125 MG/2 ML VIAL IV SCH ×4 (00:54→17:12)
[2018-03-07] MEDS: ACETAMINOPHEN TAB 325 MG TAB PO PRN (06:20)
[2018-03-07] MEDS: BUDESONIDE 1 MG/2 ML NEBU INHALATION SCH ×2 (07:59→19:56)
[2018-03-07] MEDS: FORMOTEROL FUMARATE 20 MCG/2 ML NEBU INHALATION SCH ×2 (07:59→19:56)
[2018-03-07] MEDS: ENOXAPARIN 40 MG/0.4 ML SYRINGE SQ SCH (08:32)
[2018-03-07] MEDS: BENZONATATE 100 MG CAP PO SCH ×3 (08:35→21:55)
[2018-03-07] MEDS: AZITHROMYCIN 500 MG TAB PO SCH (08:35)
[2018-03-07] MEDS: PANTOPRAZOLE 40 MG TABLET PO SCH (08:35)
[2018-03-07] MEDS: FERROUS SULFATE 325 MG TAB PO SCH ×2 (08:36→21:04)
[2018-03-07] MEDS: VENLAFAXINE HCL ER 37.5 MG CAP PO SCH (08:36)
[2018-03-07] MEDS: MONTELUKAST 10 MG TAB PO SCH (08:36)
[2018-03-07] MEDS: DILTIAZEM CD 300 MG CAP.ER.24H PO SCH (08:36)
[2018-03-07] MEDS: guaiFENesin 600 MG TABLET.ER PO SCH ×2 (08:36→21:04)
--- NOTE | 2018-03-07 09:21 | P.PN ---
Subjective Progress Note Date: 03/07/18 Patient denied any significant improvements, sooner reports chest and head congestion along with headache. Reportedly up and ambulatory. Denies any chest pain. Patient afebrile without leukocytosis Objective - Vital Signs Vital signs: Vital Signs Temp 98 F 03/07/18 05:00 Pulse 92 03/07/18 08:21 Resp 16 03/07/18 05:00 BP 121/73 03/07/18 05:00 Pulse Ox 94 L 03/07/18 05:00 Intake & Output 03/06/18 03/07/18 03/07/18 18:59 06:59 18:59 Intake Total 1080 400 Balance 1080 400 Intake: Intake, IV Titration 50 Amount cefTRIAXone 1,000 mg In 50 Sodium Chloride 0.9% 50 ml @ 100 mls/hr IVPB Q24H [facility] Rx#:[id number] Oral 1080 350 Other: Voiding Method Toilet Toilet # Voids 3 1 - Exam Constitutional: No acute distress, conversant, pleasant Eyes: Anicteric sclerae, moist conjunctiva, no lid-lag, PERRLA ENMT: NC/AT,Oropharynx clear, no erythema, exudates Neck:Supple, FROM, no masses, or JVD, No carotid bruits; No thyromegaly Lungs: Poor inspiratory effort diminished in the bases and expiratory wheezes, no respiratory distress Cardiovascular: Heart regular in rate and rhythm, No murmurs, gallops, or rubs no peripheral edema Abdominal: Soft Nontender, nom distended, no guarding, no rebound or rigidity, Normoactive bowel sounds No hepatomegaly, No splenomegaly, No palpable mass No abdominal wall hernia noted Skin: Normal temperature, tone, texture, turgor, No induration No subcutaneous nodules, No rash, lesions, No ulcers Extremities:No digital cyanosis No clubbing, Pedal pulses intact and symmetrical Radial pulses intact and symmetrical Normal gait and station, No calf tenderness Psychiatric: Alert and oriented to person, place and time, Appropriate affect Intact judgement Neuro: Muscles Strength 5/5 in all 4 extremities, Sensation to light touch grossly present throughout, Cranial nerves II-XII grossly intact. No focal sensory deficits - Labs CBC & Chem 7: 03/05/18 08:12 03/05/18 08:12 Labs: Microbiology - Last 24 Hours (Table) 03/05/18 16:58 Blood Culture - Preliminary Blood No Growth after 24 hours Assessment and Plan (1) Acute respiratory failure with hypoxia Narrative/Plan: * Secondary to pneumonia superimposed on sepsis and asthma exacerbation * Continue with supplemental oxygen to keep sats 9092% and breathing treatments Current Visit: Yes Status: Acute Code(s): J96.01 - ACUTE RESPIRATORY FAILURE WITH HYPOXIA SNOMED Code(s): 99469216 (2) Sepsis Narrative/Plan: * Afebrile currently hemodynamically stable * Noted leukocytosis improving down to 12.2, chest x-ray confirming right * Continue current antibiotic regimen azithromycin and Rocephin influenza negative will check urine and blood Current Visit: Yes Status: Acute Code(s): A41.9 - SEPSIS, UNSPECIFIED ORGANISM SNOMED Code(s): 84519690 (3) Asthma with exacerbation Narrative/Plan: * Failed outpatient treatment * Continue with systemic steroids IV Solu-Medrol, scheduled and when necessary DuoNeb bronchodilator breathing treatments * Supportive management with supplemental oxygen and Tessalon Perles * We'll add Perforomist Mucinex and attempt to obtain a sputum culture today * Pulmonary consulted patient does follow Dr. Quiñones outpatient Current Visit: No Status: Acute Code(s): J45.901 - UNSPECIFIED ASTHMA WITH ( ACUTE) EXACERBATION SNOMED Code(s): 630476713 (4) Pneumonia Narrative/Plan: Treatment as above Current Visit: Yes Status: Acute Code(s): J18.9 - PNEUMONIA, UNSPECIFIED ORGANISM SNOMED Code(s): 655456746 (5) Tachycardia Narrative/Plan: * Patient resumed on Cardizem will continue to monitor Current Visit: No Status: Chronic Code(s): R00.0 - TACHYCARDIA, UNSPECIFIED SNOMED Code(s): 0180354 (6) Headache Narrative/Plan: * Patient has been getting Imitrex which abort her headaches * Previously on Ultram at home we'll resume this and monitor for improvement Current Visit: Yes Status: Acute Code(s): R51 - HEADACHE SNOMED Code(s): 06500498 Plan: Anticipated discharge 1-2 days
[2018-03-07] MEDS: traMADol 50 MG TAB PO SCH ×3 (09:25→21:55)
--- NOTE | 2018-03-07 11:10 | PN ---
PROGRESS NOTE DATE OF SERVICE: 03/07/2018 A 52-year-old female who was admitted with a diagnosis of severe asthma exacerbation. The patient is no better today. Still complaining of a lot of shortness of breath, chest tightness, wheezing and cough. The patient does cough up some yellow phlegm. The patient has been here in the hospital just for a day and half or so. In addition, she has a history of GERD, osteoarthritis, sleep apnea syndrome, and hypothyroidism. In addition, she has a history of cardiomyopathy which is thought to be viral in nature. She does use CPAP for her sleep apnea. Current vital signs are reviewed. Her temperature is 98 degrees, heart rate 92, respiratory rate 16, blood pressure 121/73, mean 89 and 2 L saturation 94%. Appears in no acute distress. HEENT examination is grossly unremarkable. Mucous membranes are moist. No oral lesions. Neck is supple. Full range of motion. No adenopathy or thyromegaly. Cardiovascular examination reveals regular rhythm and rate. S1, S2 normal. Heart sounds are distant. Lungs reveal diminished breath sounds. She cannot take a deep breath without coughing. There is some expiratory wheezes. There is prolongation on forced maneuver. Adventitious lung sounds are more prominent on forced maneuver. Abdomen is obese. Bowel sounds are heard. Extremities are intact. No cyanosis, clubbing, or edema. Skin without rash. Neurologic examination is brief but nonfocal. LABS: Reviewed. No new labs from today. Chest x-ray was reviewed yesterday. Microbiologic studies are negative. Medications are adjusted. ASSESSMENT: 1. Asthma exacerbation complicated by purulent tracheobronchitis and possible pneumonia, right lower lobe. 2. History of gastroesophageal reflux disease. 3. History of sleep apnea syndrome. 4. Morbid obesity. 5. Hypothyroidism. 6. Degenerative joint disease. 7. Vitamin D deficiency. 8. Multiple other medical problems and comorbidities including possible viral cardiomyopathy. PLAN: The patient is on appropriate medications including short-acting beta agonist, short- acting muscarinic agonist, long-acting beta agonist, inhaled corticosteroids, systemic corticosteroids and antibiotics. I did tell her it would take another day or so before she noticed some improvement. Will continue to follow closely. No additional recommendations are made. Prognosis is guarded. MMODL / IJN: [id number] /
[2018-03-07] MEDS: MULTIVITAMINS, THERA 1 EACH TAB PO SCH (12:50)
[2018-03-08] MEDS: methylPREDNISolone SOD SUCCI 125 MG/2 ML VIAL IV SCH ×5 (00:57→23:19)
[2018-03-08] MEDS: IPRATROPIUM-ALBUTEROL 3 ML NEB INHALATION SCH ×6 (03:40→23:19)
[2018-03-08] MEDS: FORMOTEROL FUMARATE 20 MCG/2 ML NEBU INHALATION SCH ×2 (06:56→19:28)
[2018-03-08] MEDS: BUDESONIDE 1 MG/2 ML NEBU INHALATION SCH ×2 (06:56→19:25)
[2018-03-08] MEDS: DILTIAZEM CD 300 MG CAP.ER.24H PO SCH (08:52)
[2018-03-08] MEDS: VENLAFAXINE HCL ER 37.5 MG CAP PO SCH (08:52)
[2018-03-08] MEDS: FERROUS SULFATE 325 MG TAB PO SCH ×2 (08:52→21:10)
[2018-03-08] MEDS: traMADol 50 MG TAB PO SCH ×3 (08:53→21:10)
[2018-03-08] MEDS: AZITHROMYCIN 500 MG TAB PO SCH (08:53)
[2018-03-08] MEDS: ENOXAPARIN 40 MG/0.4 ML SYRINGE SQ SCH (08:53)
[2018-03-08] MEDS: FLUTICASONE 50MCG/SPRAY NASAL 16GM EA NOSTRIL SCH (08:53)
[2018-03-08] MEDS: PANTOPRAZOLE 40 MG TABLET PO SCH (08:53)
[2018-03-08] MEDS: guaiFENesin 600 MG TABLET.ER PO SCH ×2 (08:53→21:10)
[2018-03-08] MEDS: MONTELUKAST 10 MG TAB PO SCH (08:53)
[2018-03-08] MEDS: BENZONATATE 100 MG CAP PO SCH ×3 (08:53→21:10)
--- NOTE | 2018-03-08 10:56 | PN ---
PROGRESS NOTE DATE OF SERVICE: 03/08/2018 This is a 52-year-old female admitted with a diagnosis of severe asthma exacerbation. The patient is slightly better today. Still complaining of lots of shortness of breath and coughing. Bringing up a small amount of phlegm. She was able to give a sputum sample. No fever or chills. Her chest hurts from coughing. No nausea, vomiting or diarrhea. She does have a history of GERD, osteoarthritis, sleep apnea syndrome, and hypothyroidism. Current vital signs are reviewed. Temperature is 97.9, heart rate 80, respiratory rate 18, blood pressure 135/61, mean 85, 3 L saturation 92%. Appears in no acute distress. No audible wheezing. No nasal flaring. No use of accessory muscles. HEENT examination is grossly unremarkable. Mucous membranes are moist. No oral lesions. Neck is supple. Full range of motion. No adenopathy or thyromegaly. Cardiovascular examination reveals regular rhythm and rate. S1, S2 normal. No S3, S4, or murmur. Lungs reveal some expiratory wheezes and rhonchi. There is prolongation. Patient wheezes and coughs on forced maneuver. Breath sounds are slightly improved. Abdomen is obese. Bowel sounds are heard. Extremities are intact. No cyanosis, clubbing, or edema. Skin without rash. Neurologic examination is brief but nonfocal. No new labs to report. Influenza studies were negative. No new x-rays to report. Medications are reviewed and are very appropriate. ASSESSMENT: 1. Asthma exacerbation complicated by purulent tracheobronchitis and possible bronchopneumonia, right lower lobe. 2. History of gastroesophageal reflux disease. 3. History of sleep apnea syndrome. 4. Morbid obesity. 5. Hypothyroidism. 6. Degenerative joint disease. 7. Vitamin D deficiency. 8. History of viral cardiomyopathy. 9. Multiple other medical problems and comorbidities. PLAN: The patient is doing reasonably well. Will stay the course. She was asking about whether not we should draw some additional labs. In my opinion. No additional labs are necessary. We leave that up to the primary. The patient is on appropriate antibiotics, short-acting beta agonist, short-acting muscarinic antagonist, long-acting beta agonist, inhaled corticosteroids, and systemic corticosteroids. Will continue to follow. Prognosis is guarded. MMODL / IJN: [id number] /
[2018-03-08] MEDS ORDERED: POLYETHYLENE GLYCOL 3350 17 GM POWD.PACK PO STA (11:15)
--- NOTE | 2018-03-08 11:23 | P.PN ---
Subjective Progress Note Date: 03/08/18 Patient afebrile without leukocytosis reporting some improvement of her symptoms overnight, has been up and ambulatory still wheezy, cough now productive. Reporting some constipation, headache appears to be much improved on tramadol Objective - Vital Signs Vital signs: Vital Signs Temp 97.9 F 03/08/18 05:00 Pulse 77 03/08/18 11:04 Resp 18 03/08/18 05:00 BP 135/61 03/08/18 05:00 Pulse Ox 92 L 03/08/18 05:00 Intake & Output 03/07/18 03/08/18 03/08/18 18:59 06:59 18:59 Intake Total 1130 Balance 1130 Intake: Intake, IV Titration 50 Amount cefTRIAXone 1,000 mg In 50 Sodium Chloride 0.9% 50 ml @ 100 mls/hr IVPB Q24H [facility] Rx#:[id number] Oral 1080 Other: Voiding Method Toilet Toilet # Voids 3 3 - Exam Constitutional: No acute distress, conversant, pleasant Eyes: Anicteric sclerae, moist conjunctiva, no lid-lag, PERRLA ENMT: NC/AT,Oropharynx clear, no erythema, exudates Neck:Supple, FROM, no masses, or JVD, No carotid bruits; No thyromegaly Lungs: Poor inspiratory effort diminished in the bases and expiratory wheezes, no respiratory distress Cardiovascular: Heart regular in rate and rhythm, No murmurs, gallops, or rubs no peripheral edema Abdominal: Soft Nontender, nom distended, no guarding, no rebound or rigidity, Normoactive bowel sounds No hepatomegaly, No splenomegaly, No palpable mass No abdominal wall hernia noted Skin: Normal temperature, tone, texture, turgor, No induration No subcutaneous nodules, No rash, lesions, No ulcers Extremities:No digital cyanosis No clubbing, Pedal pulses intact and symmetrical Radial pulses intact and symmetrical Normal gait and station, No calf tenderness Psychiatric: Alert and oriented to person, place and time, Appropriate affect Intact judgement Neuro: Muscles Strength 5/5 in all 4 extremities, Sensation to light touch grossly present throughout, Cranial nerves II-XII grossly intact. No focal sensory deficits - Labs CBC & Chem 7: 03/05/18 08:12 03/05/18 08:12 Labs: Microbiology - Last 24 Hours (Table) 03/05/18 16:58 Blood Culture - Preliminary Blood No Growth after 48 hours Assessment and Plan (1) Acute respiratory failure with hypoxia Narrative/Plan: * Secondary to pneumonia superimposed on sepsis and asthma exacerbation * Continue with supplemental oxygen to keep sats 9092% and breathing treatments Current Visit: Yes Status: Resolved Code(s): J96.01 - ACUTE RESPIRATORY FAILURE WITH HYPOXIA SNOMED Code(s): 10763359 (2) Sepsis Narrative/Plan: * Afebrile currently hemodynamically stable * Noted leukocytosis improving down to 12.2, chest x-ray confirming right * Continue current antibiotic regimen azithromycin and Rocephin influenza negative will check urine and blood Current Visit: Yes Status: Acute Code(s): A41.9 - SEPSIS, UNSPECIFIED ORGANISM SNOMED Code(s): 81031075 (3) Asthma with exacerbation Narrative/Plan: * Failed outpatient treatment * Continue with systemic steroids IV Solu-Medrol, scheduled and when necessary DuoNeb bronchodilator breathing treatments * Supportive management with supplemental oxygen and Tessalon Perles * Continue Perforomist Mucinex * Pulmonary consulted patient does follow Dr. Quiñones outpatient Current Visit: No Status: Acute Code(s): J45.901 - UNSPECIFIED ASTHMA WITH ( ACUTE) EXACERBATION SNOMED Code(s): 366727782 (4) Pneumonia Narrative/Plan: Treatment as above Current Visit: Yes Status: Acute Code(s): J18.9 - PNEUMONIA, UNSPECIFIED ORGANISM SNOMED Code(s): 878940622 (5) Tachycardia Narrative/Plan: * Patient resumed on Cardizem will continue to monitor Current Visit: No Status: Chronic Code(s): R00.0 - TACHYCARDIA, UNSPECIFIED SNOMED Code(s): 0648099 (6) Headache Narrative/Plan: * Patient has been getting Imitrex which abort her headaches * Previously on Ultram at home we'll resume this and monitor for improvement Current Visit: Yes Status: Acute Code(s): R51 - HEADACHE SNOMED Code(s): 33891848 (7) Constipation Narrative/Plan: * Initiated on MiraLAX Current Visit: Yes Status: Acute Code(s): K59.00 - CONSTIPATION, UNSPECIFIED SNOMED Code(s): 17952972 Plan: Anticipated discharge 1 day
[2018-03-08] MEDS: MULTIVITAMINS, THERA 1 EACH TAB PO SCH (12:28)
[2018-03-09] MEDS: IPRATROPIUM-ALBUTEROL 3 ML NEB INHALATION SCH ×6 (03:34→23:47)
[2018-03-09] MEDS: methylPREDNISolone SOD SUCCI 125 MG/2 ML VIAL IV SCH (06:23)
[2018-03-09] MEDS: FORMOTEROL FUMARATE 20 MCG/2 ML NEBU INHALATION SCH ×2 (07:12→19:28)
[2018-03-09] MEDS: BUDESONIDE 1 MG/2 ML NEBU INHALATION SCH ×2 (07:12→19:28)
--- NOTE | 2018-03-09 08:37 | P.PN ---
Subjective Progress Note Date: 03/09/18 Patient afebrile without leukocytosis reporting significant improvement of her symptoms overnight, has been up and ambulatory still wheezy, cough now productive. Reports her headaches and constipation or improved Objective - Vital Signs Vital signs: Vital Signs Temp 98.4 F 03/09/18 04:48 Pulse 100 03/09/18 07:35 Resp 16 03/09/18 04:48 BP 145/67 03/09/18 04:48 Pulse Ox 92 L 03/09/18 04:48 Intake & Output 03/08/18 03/09/18 03/09/18 18:59 06:59 18:59 Intake Total 640 Balance 640 Intake: Intake, IV Titration 50 Amount cefTRIAXone 1,000 mg In 50 Sodium Chloride 0.9% 50 ml @ 100 mls/hr IVPB Q24H [facility] Rx#:[id number] Oral 590 Other: Voiding Method Toilet Toilet # Voids 3 2 - Exam Constitutional: No acute distress, conversant, pleasant Eyes: Anicteric sclerae, moist conjunctiva, no lid-lag, PERRLA ENMT: NC/AT,Oropharynx clear, no erythema, exudates Neck:Supple, FROM, no masses, or JVD, No carotid bruits; No thyromegaly Lungs: Improved aeration with minimal wheezes, no respiratory distress Cardiovascular: Heart regular in rate and rhythm, No murmurs, gallops, or rubs no peripheral edema Abdominal: Soft Nontender, nom distended, no guarding, no rebound or rigidity, Normoactive bowel sounds No hepatomegaly, No splenomegaly, No palpable mass No abdominal wall hernia noted Skin: Normal temperature, tone, texture, turgor, No induration No subcutaneous nodules, No rash, lesions, No ulcers Extremities:No digital cyanosis No clubbing, Pedal pulses intact and symmetrical Radial pulses intact and symmetrical Normal gait and station, No calf tenderness Psychiatric: Alert and oriented to person, place and time, Appropriate affect Intact judgement Neuro: Muscles Strength 5/5 in all 4 extremities, Sensation to light touch grossly present throughout, Cranial nerves II-XII grossly intact. No focal sensory deficits - Labs CBC & Chem 7: 03/05/18 08:12 03/05/18 08:12 Labs: Microbiology - Last 24 Hours (Table) 03/05/18 16:58 Blood Culture - Preliminary Blood No Growth after 72 hours 03/08/18 00:44 Gram Stain - Preliminary Sputum Assessment and Plan (1) Acute respiratory failure with hypoxia Narrative/Plan: * Secondary to pneumonia superimposed on sepsis and asthma exacerbation * We'll attempt to wean oxygen today and do a home O2 eval Current Visit: Yes Status: Resolved Code(s): J96.01 - ACUTE RESPIRATORY FAILURE WITH HYPOXIA SNOMED Code(s): 39242386 (2) Sepsis Narrative/Plan: * Afebrile currently hemodynamically stable * Leukocytosis resolved, chest x-ray confirming right sided pneumonia * Continue current antibiotic regimen azithromycin Current Visit: Yes Status: Acute Code(s): A41.9 - SEPSIS, UNSPECIFIED ORGANISM SNOMED Code(s): 24617964 (3) Asthma with exacerbation Narrative/Plan: * Failed outpatient treatment * Continue with systemic steroids transitioned from Solu-Medrol to prednisone today, scheduled and when necessary DuoNeb bronchodilator breathing treatments * Supportive management with supplemental oxygen and Tessalon Perles, Phenergan with codeine added to regimen * Continue Perforomist Mucinex * Pulmonary consulted patient does follow Dr. Quiñones outpatient Current Visit: No Status: Acute Code(s): J45.901 - UNSPECIFIED ASTHMA WITH ( ACUTE) EXACERBATION SNOMED Code(s): 361635989 (4) Pneumonia Narrative/Plan: Treatment as above Current Visit: Yes Status: Acute Code(s): J18.9 - PNEUMONIA, UNSPECIFIED ORGANISM SNOMED Code(s): 547056361 (5) Tachycardia Narrative/Plan: * Patient resumed on Cardizem will continue to monitor Current Visit: No Status: Chronic Code(s): R00.0 - TACHYCARDIA, UNSPECIFIED SNOMED Code(s): 7616572 (6) Headache Narrative/Plan: * Patient has been getting Imitrex which abort her headaches * Previously on Ultram at home we'll resume this and monitor for improvement Current Visit: Yes Status: Acute Code(s): R51 - HEADACHE SNOMED Code(s): 95121523 (7) Constipation Narrative/Plan: * Initiated on MiraLAX Current Visit: Yes Status: Acute Code(s): K59.00 - CONSTIPATION, UNSPECIFIED SNOMED Code(s): 99179126 Plan: Plan to target discharge for tomorrow
[2018-03-09] MEDS: traMADol 50 MG TAB PO SCH ×3 (08:51→22:03)
[2018-03-09] MEDS: BENZONATATE 100 MG CAP PO SCH ×3 (08:51→20:24)
[2018-03-09] MEDS: PANTOPRAZOLE 40 MG TABLET PO SCH (08:51)
[2018-03-09] MEDS: VENLAFAXINE HCL ER 37.5 MG CAP PO SCH (08:51)
[2018-03-09] MEDS: FERROUS SULFATE 325 MG TAB PO SCH ×2 (08:52→20:24)
[2018-03-09] MEDS: guaiFENesin 600 MG TABLET.ER PO SCH ×2 (08:52→20:24)
[2018-03-09] MEDS: ENOXAPARIN 40 MG/0.4 ML SYRINGE SQ SCH (08:52)
[2018-03-09] MEDS: predniSONE 50 MG TAB PO SCH (08:52)
[2018-03-09] MEDS: MONTELUKAST 10 MG TAB PO SCH (08:52)
[2018-03-09] MEDS: POLYETHYLENE GLYCOL 3350 17 GM POWD.PACK PO SCH (08:52)
[2018-03-09] MEDS: DILTIAZEM CD 300 MG CAP.ER.24H PO SCH (08:52)
[2018-03-09] MEDS: MULTIVITAMINS, THERA 1 EACH TAB PO SCH (08:53)
[2018-03-09] MEDS: FLUTICASONE 50MCG/SPRAY NASAL 16GM EA NOSTRIL SCH (10:04)
--- NOTE | 2018-03-09 13:54 | PN ---
PROGRESS NOTE DATE OF SERVICE: 03/09/2018 This is a 52-year-old female admitted with a diagnosis of severe asthma exacerbation. Each day, the patient is a bit better. Now she can breathe without coughing. She still is quite bronchospastic. Probably will need another couple days here in the hospital. She is spitting up a small amount of phlegm, not a lot. She does have a history of GERD, osteoarthritis, sleep apnea syndrome, and hypothyroidism. In addition, on this admission, her chest x-ray suggested possible pneumonia in the right lower lobe. Current vital signs are reviewed. Temperature 98.4, heart rate 90, respiratory rate 16, blood pressure 145/67, mean 93, 2 L saturation 94%. Appears in no acute distress. HEENT examination is grossly unremarkable. Mucous membranes are moist. Neck is supple. Full range of motion. No adenopathy or thyromegaly. Neck veins are flat. Cardiovascular examination reveals regular rhythm and rate. Heart rate about 85 to 90 beats per minute. S1, S2 normal. Heart sounds are distant. Lungs reveal some expiratory wheezes and rhonchi. She can actually breathe in without coughing. Prior was not able to do that. No crackles. Abdomen obese. Bowel sounds are heard. Extremities are intact. There is no cyanosis, clubbing or edema. Skin without rash. Neurologic examination is brief but nonfocal. LAB DATA: Reviewed. Nothing new to report. Microbiologic studies are pending or negative. Medications reviewed. We did put her back on her Solu-Medrol and on the cough medication she requested. ASSESSMENT: 1. Asthma exacerbation complicated by purulent tracheobronchitis and possible bronchopneumonia right lower lobe. 2. History of gastroesophageal reflux disease. 3. History of sleep apnea syndrome. 4. Morbid obesity. 5. Hypothyroidism. 6. Degenerative joint disease. 7. Vitamin D deficiency. 8. History of viral cardiomyopathy. PLAN: The patient is doing much better. Will continue to follow. She probably will need another 1 or 2 days of therapy. We switched her back to Solu-Medrol from prednisone. We are going to give her the cough medicine she requested. No additional recommendations are made. A repeat chest x-ray in the morning. MMODL / IJN: [id number] /
[2018-03-10] MEDS: IPRATROPIUM-ALBUTEROL 3 ML NEB INHALATION SCH ×6 (03:42→23:47)
--- NOTE | 2018-03-10 07:45 | P.PN ---
Subjective Progress Note Date: 03/10/18 Patient afebrile without leukocytosis reporting no significant improvement of her symptoms since yesterday overnight, has been up and ambulatory still wheezy , cough now productive. Reports her headaches and constipation are improved. Nursing reporting patient hypoxic on room air when attempted to wean with sats down at 88-89% on room air. Objective - Vital Signs Vital signs: Vital Signs Temp 97.8 F 03/10/18 05:00 Pulse 84 03/10/18 05:00 Resp 16 03/10/18 05:00 BP 134/74 03/10/18 05:00 Pulse Ox 92 L 03/10/18 05:00 Intake & Output 03/09/18 03/10/18 03/10/18 18:59 06:59 18:59 Intake Total 590 Balance 590 Intake: Oral 590 Other: Voiding Method Toilet Toilet # Voids 3 1 - Exam Constitutional: No acute distress, conversant, pleasant Eyes: Anicteric sclerae, moist conjunctiva, no lid-lag, PERRLA ENMT: NC/AT,Oropharynx clear, no erythema, exudates Neck:Supple, FROM, no masses, or JVD, No carotid bruits; No thyromegaly Lungs: Improved aeration with minimal wheezes, no respiratory distress Cardiovascular: Heart regular in rate and rhythm, No murmurs, gallops, or rubs no peripheral edema Abdominal: Soft Nontender, nom distended, no guarding, no rebound or rigidity, Normoactive bowel sounds No hepatomegaly, No splenomegaly, No palpable mass No abdominal wall hernia noted Skin: Normal temperature, tone, texture, turgor, No induration No subcutaneous nodules, No rash, lesions, No ulcers Extremities:No digital cyanosis No clubbing, Pedal pulses intact and symmetrical Radial pulses intact and symmetrical Normal gait and station, No calf tenderness Psychiatric: Alert and oriented to person, place and time, Appropriate affect Intact judgement Neuro: Muscles Strength 5/5 in all 4 extremities, Sensation to light touch grossly present throughout, Cranial nerves II-XII grossly intact. No focal sensory deficits - Labs CBC & Chem 7: 03/05/18 08:12 03/05/18 08:12 Labs: Microbiology - Last 24 Hours (Table) 03/05/18 16:58 Blood Culture - Preliminary Blood No Growth after 96 hours Assessment and Plan (1) Acute respiratory failure with hypoxia Narrative/Plan: * Secondary to pneumonia superimposed on sepsis and asthma exacerbation * Patient with diminished saturations on room air with sats at 88-89% at rest * Continue with supplemental oxygen to keep sats 90-92% * A follow-up a.m. chest x-ray Current Visit: Yes Status: Resolved Code(s): J96.01 - ACUTE RESPIRATORY FAILURE WITH HYPOXIA SNOMED Code(s): 73259660 (2) Sepsis Narrative/Plan: * Afebrile currently hemodynamically stable * Leukocytosis resolved, chest x-ray confirming right sided pneumonia * Continue current antibiotic regimen azithromycin Current Visit: Yes Status: Acute Code(s): A41.9 - SEPSIS, UNSPECIFIED ORGANISM SNOMED Code(s): 56335877 (3) Asthma with exacerbation Narrative/Plan: * Failed outpatient treatment * Continue with systemic steroids switched back to Solumedrol yesterday, coninue scheduled and when necessary DuoNeb bronchodilator breathing treatments * Supportive management with supplemental oxygen and Tessalon Perles, Phenergan with codeine added to regimen * Continue Perforomist Mucinex * Pulmonary consulted patient does follow Dr. Quiñones outpatient Current Visit: No Status: Acute Code(s): J45.901 - UNSPECIFIED ASTHMA WITH ( ACUTE) EXACERBATION SNOMED Code(s): 517944537 (4) Pneumonia Narrative/Plan: Treatment as above Current Visit: Yes Status: Acute Code(s): J18.9 - PNEUMONIA, UNSPECIFIED ORGANISM SNOMED Code(s): 376025953 (5) Tachycardia Narrative/Plan: * Patient resumed on Cardizem will continue to monitor Current Visit: No Status: Chronic Code(s): R00.0 - TACHYCARDIA, UNSPECIFIED SNOMED Code(s): 0509832 (6) Headache Narrative/Plan: * Patient has been getting Imitrex which abort her headaches * Previously on Ultram at home we'll resume this and monitor for improvement Current Visit: Yes Status: Acute Code(s): R51 - HEADACHE SNOMED Code(s): 45844881 (7) Constipation Narrative/Plan: * Initiated on MiraLAX Current Visit: Yes Status: Acute Code(s): K59.00 - CONSTIPATION, UNSPECIFIED SNOMED Code(s): 99959478 Plan: We'll continue current regimen and therapy Anticipated discharge 1-2 days
[2018-03-10] MEDS: FLUTICASONE 50MCG/SPRAY NASAL 16GM EA NOSTRIL SCH (07:56)
[2018-03-10] MEDS: predniSONE 50 MG TAB PO SCH (07:56)
[2018-03-10] MEDS: BENZONATATE 100 MG CAP PO SCH ×3 (07:56→21:33)
[2018-03-10] MEDS: traMADol 50 MG TAB PO SCH ×3 (07:56→21:31)
[2018-03-10] MEDS: MONTELUKAST 10 MG TAB PO SCH (07:56)
[2018-03-10] MEDS: VENLAFAXINE HCL ER 37.5 MG CAP PO SCH (07:56)
[2018-03-10] MEDS: FERROUS SULFATE 325 MG TAB PO SCH ×2 (07:56→21:32)
[2018-03-10] MEDS: POLYETHYLENE GLYCOL 3350 17 GM POWD.PACK PO SCH (07:57)
[2018-03-10] MEDS: guaiFENesin 600 MG TABLET.ER PO SCH ×2 (07:57→21:30)
[2018-03-10] MEDS: MULTIVITAMINS, THERA 1 EACH TAB PO SCH (07:57)
[2018-03-10] MEDS: PANTOPRAZOLE 40 MG TABLET PO SCH (07:57)
[2018-03-10] MEDS: DILTIAZEM CD 300 MG CAP.ER.24H PO SCH (07:57)
[2018-03-10] MEDS: ENOXAPARIN 40 MG/0.4 ML SYRINGE SQ SCH (07:57)
[2018-03-10] MEDS: BUDESONIDE 1 MG/2 ML NEBU INHALATION SCH ×2 (08:10→19:18)
[2018-03-10] MEDS: FORMOTEROL FUMARATE 20 MCG/2 ML NEBU INHALATION SCH ×2 (08:10→19:18)
--- NOTE | 2018-03-10 08:47 | XR ---
EXAMINATION TYPE: XR chest 2V DATE OF EXAM: 03/10/2018 HISTORY: pneumonia RLL. REFERENCE: Previous study dated 03/04/2018. FINDINGS: The lungs are clear. Heart size upper limits of normal. Pleural spaces are clear. IMPRESSION: NO ACUTE CARDIOTHORACIC ABNORMALITY.
[2018-03-10] MEDS ORDERED: BENZOCAINE/MENTHOL LOZENG 1 EACH LOZENGE MUCOUS MEM PRN (10:14)
[2018-03-10] MEDS: AMOXIC-POT CLAV 875-125MG 1 EACH TAB PO SCH ×2 (11:45→21:30)
--- NOTE | 2018-03-10 11:49 | P.PN ---
Subjective Progress Note Date: 03/10/18 Principal diagnosis: Severe asthma exacerbation This is a 52-year-old white female patient with past medical history of chronic bronchial asthma, GERD, obstructive sleep apnea, morbid obesity, hypothyroidism, vitamin D deficiency, history of viral cardiomyopathy, and DJD, who was admitted to the hospital on 03/04/2018 with difficulty breathing, wheezing, chest tightness, phlegm production. Today on 03/10/2018 worsening this patient in follow-up on medical surgical floor. She is improving, still bronchospastic. Today's chest x-ray showed improvement in the appearance of right lower lobe infiltrate. Patient has been ambulating, she is on 2 L per nasal cannula, does desat on room air. Afebrile, sputum cultures with Neelima albicans, blood cultures are negative. Objective - Vital Signs Vital signs: Vital Signs Temp 97.8 F 03/10/18 05:00 Pulse 96 03/10/18 08:34 Resp 16 03/10/18 05:00 BP 134/74 03/10/18 05:00 Pulse Ox 92 L 03/10/18 05:00 Intake & Output 03/09/18 03/10/18 03/10/18 18:59 06:59 18:59 Intake Total 590 Balance 590 Intake: Oral 590 Other: Voiding Method Toilet Toilet # Voids 3 1 - Exam GENERAL EXAM: Alert, pleasant 52-year-old white female, on Tuesdays per nasal cannula comfortable in no apparent distress. HEAD: Normocephalic/atraumatic. EYES: Normal reaction of pupils, equal size. Conjunctiva pink, sclera white. NOSE: Clear with pink turbinates. THROAT: No erythema or exudates. NECK: No masses, no JVD, no thyroid enlargement, no adenopathy. CHEST: No chest wall deformity. Symmetrical expansion. LUNGS: Equal air entry with diffuse wheezes CVS: Regular rate and rhythm, normal S1 and S2, no gallops, no murmurs, no rubs ABDOMEN: Soft, nontender. No hepatosplenomegaly, normal bowel sounds, no guarding or rigidity. EXTREMITIES: No clubbing, no edema, no cyanosis, 2+ pulses and upper and lower extremities. MUSCULOSKELETAL: Muscle strength and tone normal. SPINE: No scoliosis or deformity SKIN: No rashes CENTRAL NERVOUS SYSTEM: Alert and oriented -3. No focal deficits, tone is normal in all 4 extremities. PSYCHIATRIC: Alert and oriented -3. Appropriate affect. Intact judgment and insight. - Labs CBC & Chem 7: 03/05/18 08:12 03/05/18 08:12 Labs: Microbiology - Last 24 Hours (Table) 03/08/18 00:44 Gram Stain - Final Sputum Sputum Culture - Final Neelima albicans 03/05/18 16:58 Blood Culture - Preliminary Blood No Growth after 96 hours Assessment and Plan Plan: Assessment: #1. Acute exacerbation of chronic bronchial asthma, acute by purulent tracheobronchitis and possible bronchopneumonia in the right lower lobe. #2. Gastroesophageal reflux disease #3. Sleep apnea syndrome #4. Morbid obesity #5. Hypothyroidism #6. Degenerative joint disease #7. Vitamin D deficiency #8. History of viral cardiomyopathy Plan: Patient is improving, although remains bronchospastic, and is coughing. We'll continue steroids, nebulized bronchodilators, cough medication. Patient's antibiotics have been switched to Augmentin, today's chest x-ray has been reviewed with Dr. Quiñones, shows improvement in the appearance of right lower lobe infiltrate. I performed a history & physical examination of the patient and discussed their management with my nurse practitioner, Amanda Stover. I reviewed the nurse practitioner's note and agree with the documented findings and plan of care. Lung sounds are positive for diffuse wheezes throughout the lung luevano. The findings and the impression was discussed with the patient. I attest to the documentation by the nurse practitioner. Time with Patient: Less than 30
[2018-03-11] MEDS: IPRATROPIUM-ALBUTEROL 3 ML NEB INHALATION SCH ×5 (02:57→20:36)
[2018-03-11] MEDS: VENLAFAXINE HCL ER 37.5 MG CAP PO SCH (07:32)
[2018-03-11] MEDS: traMADol 50 MG TAB PO SCH ×3 (07:32→21:17)
[2018-03-11] MEDS: POLYETHYLENE GLYCOL 3350 17 GM POWD.PACK PO SCH (07:32)
[2018-03-11] MEDS: AMOXIC-POT CLAV 875-125MG 1 EACH TAB PO SCH ×2 (07:32→21:17)
[2018-03-11] MEDS: DILTIAZEM CD 300 MG CAP.ER.24H PO SCH (07:32)
[2018-03-11] MEDS: ENOXAPARIN 40 MG/0.4 ML SYRINGE SQ SCH (07:32)
[2018-03-11] MEDS: MONTELUKAST 10 MG TAB PO SCH (07:33)
[2018-03-11] MEDS: BENZONATATE 100 MG CAP PO SCH ×3 (07:33→21:17)
[2018-03-11] MEDS: FERROUS SULFATE 325 MG TAB PO SCH ×2 (07:34→21:18)
[2018-03-11] MEDS: FLUTICASONE 50MCG/SPRAY NASAL 16GM EA NOSTRIL SCH (07:34)
[2018-03-11] MEDS: predniSONE 50 MG TAB PO SCH (07:34)
[2018-03-11] MEDS: guaiFENesin 600 MG TABLET.ER PO SCH ×2 (07:34→21:18)
[2018-03-11] MEDS: PANTOPRAZOLE 40 MG TABLET PO SCH (07:34)
[2018-03-11] MEDS: BUDESONIDE 1 MG/2 ML NEBU INHALATION SCH ×2 (08:31→20:35)
[2018-03-11] MEDS: FORMOTEROL FUMARATE 20 MCG/2 ML NEBU INHALATION SCH ×2 (08:31→20:35)
--- NOTE | 2018-03-11 08:54 | P.PN ---
Subjective Progress Note Date: 03/11/18 Patient seen and examined that was up and ambulatory [id number] from the restroom, denies significant improvement since yesterday. Continues to be short of breath and wheezing. No acute events overnight. Patient was told by Dr. Quiñones that she'll be evaluated for having a possible bronchoscopy Objective - Vital Signs Vital signs: Vital Signs Temp 98.1 F 03/11/18 03:56 Pulse 92 03/11/18 08:43 Resp 16 03/11/18 03:56 BP 127/74 03/11/18 03:57 Pulse Ox 91 L 03/11/18 03:56 Intake & Output 03/10/18 03/11/18 03/11/18 18:59 06:59 18:59 Intake Total 1010 Balance 1010 Intake: Oral 1010 Other: Voiding Method Toilet # Voids 2 2 - Exam Constitutional: No acute distress, conversant, pleasant Eyes: Anicteric sclerae, moist conjunctiva, no lid-lag, PERRLA ENMT: NC/AT,Oropharynx clear, no erythema, exudates Neck:Supple, FROM, no masses, or JVD, No carotid bruits; No thyromegaly Lungs: Noted expiratory wheezes diminished in the bases, poor aeration, poor effort, sounding bronchospastic Cardiovascular: Heart regular in rate and rhythm, No murmurs, gallops, or rubs no peripheral edema Abdominal: Soft Nontender, nom distended, no guarding, no rebound or rigidity, Normoactive bowel sounds No hepatomegaly, No splenomegaly, No palpable mass No abdominal wall hernia noted Skin: Normal temperature, tone, texture, turgor, No induration No subcutaneous nodules, No rash, lesions, No ulcers Extremities:No digital cyanosis No clubbing, Pedal pulses intact and symmetrical Radial pulses intact and symmetrical Normal gait and station, No calf tenderness Psychiatric: Alert and oriented to person, place and time, Appropriate affect Intact judgement Neuro: Muscles Strength 5/5 in all 4 extremities, Sensation to light touch grossly present throughout, Cranial nerves II-XII grossly intact. No focal sensory deficits - Labs CBC & Chem 7: 03/05/18 08:12 03/05/18 08:12 Labs: Microbiology - Last 24 Hours (Table) 03/05/18 16:58 Blood Culture - Preliminary Blood No Growth after 120 hours 03/08/18 00:44 Gram Stain - Final Sputum Sputum Culture - Final Neelima albicans Assessment and Plan (1) Acute respiratory failure with hypoxia Narrative/Plan: * Secondary to pneumonia superimposed on sepsis and asthma exacerbation * Patient with diminished saturations on room air with sats at 88-89% at rest * Continue with supplemental oxygen to keep sats 90-92% * A follow-up a.m. chest x-ray Current Visit: Yes Status: Resolved Code(s): J96.01 - ACUTE RESPIRATORY FAILURE WITH HYPOXIA SNOMED Code(s): 54716096 (2) Sepsis Narrative/Plan: * Afebrile currently hemodynamically stable * Leukocytosis resolved, repeat chest x-ray confirming improvement * Completed course of Z-Benji yesterday and now on Augmentin Current Visit: Yes Status: Acute Code(s): A41.9 - SEPSIS, UNSPECIFIED ORGANISM SNOMED Code(s): 69103010 (3) Asthma with exacerbation Narrative/Plan: * Failed outpatient treatment * Continue with systemic steroids switched back to Solumedrol yesterday, coninue scheduled and when necessary DuoNeb bronchodilator breathing treatments * Supportive management with supplemental oxygen and Tessalon Perles, Phenergan with codeine added to regimen * Continue Perforomist Mucinex * Pulmonary consulted patient does follow Dr. Quiñones outpatient Current Visit: No Status: Acute Code(s): J45.901 - UNSPECIFIED ASTHMA WITH ( ACUTE) EXACERBATION SNOMED Code(s): 859927996 (4) Pneumonia Narrative/Plan: Treatment as above Current Visit: Yes Status: Acute Code(s): J18.9 - PNEUMONIA, UNSPECIFIED ORGANISM SNOMED Code(s): 742463920 (5) Tachycardia Narrative/Plan: * Patient resumed on Cardizem will continue to monitor Current Visit: No Status: Chronic Code(s): R00.0 - TACHYCARDIA, UNSPECIFIED SNOMED Code(s): 2850547 (6) Headache Narrative/Plan: * Patient has been getting Imitrex which abort her headaches * Previously on Ultram at home we'll resume this and monitor for improvement Current Visit: Yes Status: Acute Code(s): R51 - HEADACHE SNOMED Code(s): 33391911 (7) Constipation Narrative/Plan: * Initiated on MiraLAX Current Visit: Yes Status: Acute Code(s): K59.00 - CONSTIPATION, UNSPECIFIED SNOMED Code(s): 02340229 Plan: We'll continue current regimen and therapy, home to evaluate for possible bronchoscopy today Anticipated discharge 1-2 days
[2018-03-11 11:13] VITALS: BMI 43.9
[2018-03-11] MEDS: MULTIVITAMINS, THERA 1 EACH TAB PO SCH (12:31)
[2018-03-11] MEDS: FLUCONAZOLE 100 MG TAB PO SCH (14:27)
[2018-03-11] MEDS: methylPREDNISolone SOD SUCCI 125 MG/2 ML VIAL IV SCH ×2 (14:27→17:43)
--- NOTE | 2018-03-11 14:30 | P.PN ---
Subjective Progress Note Date: 03/11/18 On today's evaluation of 03/11/2017, seeing this patient for a follow-up. The patient is still short of breath bronchospastic and wheezy. She is having frequent coughing spells. She is congested. Unable to bring up much sputum. Despite treatment for the past 1 week, the patient has not shown any significant signs of improvement. I would say her asthma is still quite active. The patient currently is on oral prednisone. The patient is on DuoNeb nebulized treatments around the clock. The patient is on a combination of Pulmicort Respules and Perforomist nebulized treatments twice a day. She has developed also oropharyngeal thrush. The sputum analysis at shown Neelima albicans. She is having chest wall soreness because of her frequent cough. No significant heartburn this point in time. She is utilizing her CPAP therapy. Objective - Vital Signs Vital signs: Vital Signs Temp 98.3 F 03/11/18 11:17 Pulse 88 03/11/18 12:20 Resp 18 03/11/18 11:17 BP 123/73 03/11/18 11:17 Pulse Ox 94 L 03/11/18 11:17 Intake & Output 03/10/18 03/11/18 03/11/18 18:59 06:59 18:59 Intake Total 1010 Balance 1010 Weight 102.058 kg Intake: Oral 1010 Other: Voiding Method Toilet # Voids 2 2 - Exam GENERAL EXAM: Alert, pleasant 52-year-old white female, on Tuesdays per nasal cannula comfortable in no apparent distress. HEAD: Normocephalic/atraumatic. EYES: Normal reaction of pupils, equal size. Conjunctiva pink, sclera white. NOSE: Clear with pink turbinates. THROAT: No erythema or exudates. NECK: No masses, no JVD, no thyroid enlargement, no adenopathy. CHEST: No chest wall deformity. Symmetrical expansion. LUNGS: Equal air entry with diffuse wheezes CVS: Regular rate and rhythm, normal S1 and S2, no gallops, no murmurs, no rubs ABDOMEN: Soft, nontender. No hepatosplenomegaly, normal bowel sounds, no guarding or rigidity. EXTREMITIES: No clubbing, no edema, no cyanosis, 2+ pulses and upper and lower extremities. MUSCULOSKELETAL: Muscle strength and tone normal. SPINE: No scoliosis or deformity SKIN: No rashes CENTRAL NERVOUS SYSTEM: Alert and oriented -3. No focal deficits, tone is normal in all 4 extremities. PSYCHIATRIC: Alert and oriented -3. Appropriate affect. Intact judgment and insight. - Labs CBC & Chem 7: 03/05/18 08:12 03/05/18 08:12 Labs: Microbiology - Last 24 Hours (Table) 03/05/18 16:58 Blood Culture - Preliminary Blood No Growth after 120 hours 03/08/18 00:44 Gram Stain - Final Sputum Sputum Culture - Final Neelima albicans Assessment and Plan Plan: #1. Acute exacerbation of chronic bronchial asthma, acute by purulent tracheobronchitis and possible bronchopneumonia in the right lower lobe. Despite ongoing treatment here in the hospital with the combination of bronchodilators and steroids, the patient is still short of breath and bronchospastic and wheezy. She is having frequent coughing spells. She has also been lobe oropharyngeal thrush. #2. Gastroesophageal reflux disease #3. Sleep apnea syndrome #4. Morbid obesity #5. Hypothyroidism #6. Degenerative joint disease #7. Vitamin D deficiency #8. History of viral cardiomyopathy #9 oropharyngeal thrush Plan Today same treatment. Initiate oral Diflucan 100 mg by mouth daily. Stop the oral prednisone and put the patient IV Solu-Medrol. Bronchoscopy will be needed within next 24 hours due to failure to improve. Bronchoscopy will be needed to obtain a bronchioloalveolar lavage to make sure there is no underlying microbial activity/growth/infection preventing recovery. Continue same treatment. We'll continue to follow.
[2018-03-12] MEDS: methylPREDNISolone SOD SUCCI 125 MG/2 ML VIAL IV SCH ×4 (00:27→17:50)
[2018-03-12] MEDS: IPRATROPIUM-ALBUTEROL 3 ML NEB INHALATION SCH ×6 (03:41→21:34)
[2018-03-12] MEDS: FLUTICASONE 50MCG/SPRAY NASAL 16GM EA NOSTRIL SCH (08:36)
[2018-03-12] MEDS: FLUCONAZOLE 100 MG TAB PO SCH (08:37)
[2018-03-12] MEDS: ENOXAPARIN 40 MG/0.4 ML SYRINGE SQ SCH (08:37)
[2018-03-12] MEDS: PANTOPRAZOLE 40 MG TABLET PO SCH (08:37)
[2018-03-12] MEDS: FERROUS SULFATE 325 MG TAB PO SCH ×2 (08:37→21:50)
[2018-03-12] MEDS: MONTELUKAST 10 MG TAB PO SCH (08:37)
[2018-03-12] MEDS: BENZONATATE 100 MG CAP PO SCH ×3 (08:37→21:50)
[2018-03-12] MEDS: guaiFENesin 600 MG TABLET.ER PO SCH ×2 (08:37→21:50)
[2018-03-12] MEDS: AMOXIC-POT CLAV 875-125MG 1 EACH TAB PO SCH ×2 (08:38→21:50)
[2018-03-12] MEDS: DILTIAZEM CD 300 MG CAP.ER.24H PO SCH (08:38)
[2018-03-12] MEDS: VENLAFAXINE HCL ER 37.5 MG CAP PO SCH (08:38)
[2018-03-12] MEDS: POLYETHYLENE GLYCOL 3350 17 GM POWD.PACK PO SCH (08:41)
[2018-03-12] MEDS: traMADol 50 MG TAB PO SCH ×3 (08:41→21:50)
[2018-03-12] MEDS: FORMOTEROL FUMARATE 20 MCG/2 ML NEBU INHALATION SCH ×2 (09:18→21:34)
[2018-03-12] MEDS: BUDESONIDE 1 MG/2 ML NEBU INHALATION SCH ×2 (09:18→21:34)
--- NOTE | 2018-03-12 12:02 | P.PN ---
Subjective Progress Note Date: 03/12/18 The patient was seen and examined at the bedside. She continues to have wheezing with non-productive cough. Denying fever, chills, chest pain, nausea, vomiting, or dysuria. The patient is scheduled for Bronchoscopy tomorrow morning. She is able to walk to the bathroom. Objective - Vital Signs Vital signs: Vital Signs Temp 97.8 F 03/12/18 04:49 Pulse 92 03/12/18 09:38 Resp 17 03/12/18 04:49 BP 139/74 03/12/18 04:49 Pulse Ox 92 L 03/12/18 04:49 Intake & Output 03/11/18 03/12/18 03/12/18 18:59 06:59 18:59 Intake Total 240 1190 Balance 240 1190 Weight 102.058 kg Intake: Oral 240 1190 Other: Voiding Method Toilet # Voids 3 2 - Exam General: Non-toxic, in no acute distress, appears stated age HEENT: NC/AT, anicteric sclerae, moist conjunctiva, no lid-lag, PERRLA Cardiovascular: S1/S2 wnl, no murmurs, rubs, or gallops Lungs: Decreased breath sounds throughout w/ expiratory wheezes, no accessory muscle use Abdominal: Soft, nontender, non-distended, no guarding, rebound, or rigidity Skin: Warm, dry Extremities: No edema or contractures Psychiatric: Alert and oriented to person, place and time, appropriate affect, Intact judgment Neuro: CN II-XII grossly intact, Strength 5/5 in all 4 extremities, Speech intact, Sensation to light touch grossly intact throughout - Labs CBC & Chem 7: 03/05/18 08:12 03/05/18 08:12 Labs: Microbiology - Last 24 Hours (Table) 03/05/18 16:58 Blood Culture - Final Blood No Growth after 144 hours Assessment and Plan Plan: Acute hypoxic respiratory failure in setting of acute asthma exacerbation and community acquires pneumonia -C/w Augmentin -Solu-Medrol 60 mg every 6 hourly -DuoNebs, Formoterol inhal., singulair -Pulm recs appreciated. Bronchoscopy tomorrow History of viral myocarditis -Echocardiogram from 12/2017 revealed preserved ejection fraction -Currently on 30 day event monitor for palpitations Headache -C/w home meds: Ultram DVT//GI prophylaxis -Lovenox -Protonix The patient is admitted with an anticipated greater than 2 midnight stay for evaluation of acute asthma exacerbation. CODE STATUS: Full code Discussed with: Patient Anticipated discharge date: 03/15/[address]: Home A total of 35 minutes was spent on the care of this complex patient more than 50 % of the time was spent in counseling and care coordination.
--- NOTE | 2018-03-12 12:28 | P.PN ---
Subjective Progress Note Date: 03/12/18 Principal diagnosis: Severe asthma exacerbation This is a 52-year-old white female patient with past medical history of chronic bronchial asthma, GERD, obstructive sleep apnea, morbid obesity, hypothyroidism, vitamin D deficiency, history of viral cardiomyopathy, and DJD, who was admitted to the hospital on 03/04/2018 with difficulty breathing, wheezing, chest tightness, phlegm production. Today on 03/10/2018 worsening this patient in follow-up on medical surgical floor. She is improving, still bronchospastic. Today's chest x-ray showed improvement in the appearance of right lower lobe infiltrate. Patient has been ambulating, she is on 2 L per nasal cannula, does desat on room air. Afebrile, sputum cultures with Neelima albicans, blood cultures are negative. On 03/12/2017 patient seen in follow-up on medical surgical floor. Still having persistent coughing episodes, and wheezing, still short of breath, currently on 2 L per nasal cannula her pulse ox is 94%, afebrile, hemodynamically stable. Blood culture was negative, sputum culture showed Neelima albicans, yesterday we added Diflucan, patient is on Augmentin, nebulized treatments in addition to Pulmicort and Perforomist and Mucinex. Patient has Tessalon Perles for coughing spells, and she states she has not really been effective. Has been slow to improve, we will schedule him for bronchoscopy with BAL for tomorrow Objective - Vital Signs Vital signs: Vital Signs Temp 98.2 F 03/12/18 12:19 Pulse 87 03/12/18 12:19 Resp 16 03/12/18 12:19 BP 139/70 03/12/18 12:19 Pulse Ox 94 L 03/12/18 12:19 Intake & Output 03/11/18 03/12/18 03/12/18 18:59 06:59 18:59 Intake Total 240 1190 Balance 240 1190 Weight 102.058 kg Intake: Oral 240 1190 Other: Voiding Method Toilet # Voids 3 2 - Exam GENERAL EXAM: Alert, pleasant 52-year-old white female, on Tuesdays per nasal cannula comfortable in no apparent distress. HEAD: Normocephalic/atraumatic. EYES: Normal reaction of pupils, equal size. Conjunctiva pink, sclera white. NOSE: Clear with pink turbinates. THROAT: No erythema or exudates. NECK: No masses, no JVD, no thyroid enlargement, no adenopathy. CHEST: No chest wall deformity. Symmetrical expansion. LUNGS: Equal air entry with diffuse wheezes, she takes shallow breaths, starts coughing with deep breathing CVS: Regular rate and rhythm, normal S1 and S2, no gallops, no murmurs, no rubs ABDOMEN: Soft, nontender. No hepatosplenomegaly, normal bowel sounds, no guarding or rigidity. EXTREMITIES: No clubbing, no edema, no cyanosis, 2+ pulses and upper and lower extremities. MUSCULOSKELETAL: Muscle strength and tone normal. SPINE: No scoliosis or deformity SKIN: No rashes CENTRAL NERVOUS SYSTEM: Alert and oriented -3. No focal deficits, tone is normal in all 4 extremities. PSYCHIATRIC: Alert and oriented -3. Appropriate affect. Intact judgment and insight. - Labs CBC & Chem 7: 03/05/18 08:12 03/05/18 08:12 Labs: Microbiology - Last 24 Hours (Table) 03/05/18 16:58 Blood Culture - Final Blood No Growth after 144 hours Assessment and Plan Plan: Assessment: #1. Acute exacerbation of chronic bronchial asthma, acute by purulent tracheobronchitis and possible bronchopneumonia in the right lower lobe. #2. Gastroesophageal reflux disease #3. Sleep apnea syndrome #4. Morbid obesity #5. Hypothyroidism #6. Degenerative joint disease #7. Vitamin D deficiency #8. History of viral cardiomyopathy Plan: Continue current medical treatment, IV steroids, antibiotics, will add promethazine cough syrup, has been very slow to improve, we'll schedule her for bronchoscopy with the BAL tomorrow with Dr. Johnson. Nothing by mouth after midnight, she was discussed with the patient, the patient is agreeable to proceed. I performed a history & physical examination of the patient and discussed their management with my nurse practitioner, Amanda Stover. I reviewed the nurse practitioner's note and agree with the documented findings and plan of care. Lung sounds are positive for diffuse wheezes throughout the lung luevano. The findings and the impression was discussed with the patient. I attest to the documentation by the nurse practitioner. Time with Patient: Less than 30
[2018-03-12] MEDS: MULTIVITAMINS, THERA 1 EACH TAB PO SCH (12:38)
[2018-03-12] MEDS: PROMETHAZ-COD 6.25-10 MG/5 ML 5 ML CUP PO PRN (21:50)
[2018-03-13] MEDS: methylPREDNISolone SOD SUCCI 125 MG/2 ML VIAL IV SCH ×4 (00:23→16:45)
[2018-03-13] MEDS: IPRATROPIUM-ALBUTEROL 3 ML NEB INHALATION SCH ×6 (00:58→20:13)
[2018-03-13] MEDS: BUDESONIDE 1 MG/2 ML NEBU INHALATION SCH ×2 (06:45→20:13)
[2018-03-13] MEDS: FORMOTEROL FUMARATE 20 MCG/2 ML NEBU INHALATION SCH ×2 (06:45→20:13)
[2018-03-13] MEDS: FLUCONAZOLE 100 MG TAB PO SCH (08:16)
[2018-03-13] MEDS: BENZONATATE 100 MG CAP PO SCH ×3 (08:16→21:07)
[2018-03-13] MEDS: FLUTICASONE 50MCG/SPRAY NASAL 16GM EA NOSTRIL SCH (08:17)
[2018-03-13] MEDS: PANTOPRAZOLE 40 MG TABLET PO SCH (08:17)
[2018-03-13] MEDS: FERROUS SULFATE 325 MG TAB PO SCH ×2 (08:17→20:36)
[2018-03-13] MEDS: MONTELUKAST 10 MG TAB PO SCH (08:17)
[2018-03-13] MEDS: AMOXIC-POT CLAV 875-125MG 1 EACH TAB PO SCH ×2 (08:17→20:36)
[2018-03-13] MEDS: VENLAFAXINE HCL ER 37.5 MG CAP PO SCH (08:17)
[2018-03-13] MEDS: DILTIAZEM CD 300 MG CAP.ER.24H PO SCH (08:18)
[2018-03-13] MEDS: ENOXAPARIN 40 MG/0.4 ML SYRINGE SQ SCH (08:18)
[2018-03-13] MEDS: POLYETHYLENE GLYCOL 3350 17 GM POWD.PACK PO SCH (08:19)
[2018-03-13] MEDS: guaiFENesin 600 MG TABLET.ER PO SCH ×2 (08:19→20:36)
[2018-03-13] MEDS: traMADol 50 MG TAB PO SCH ×3 (08:20→21:09)
[2018-03-13 08:42] LABS: Basophils % (A) 0 %; Eosinophils % (A) 0 %; HCT 39.4 % (34.0-46.0); HGB 12.5 gm/dL (11.4-16.0); Lymphocytes # (A) 0.3 k/uL (1.0-4.8); Lymphocytes % (A) 3 %; MCHC 31.8 g/dL (31.0-37.0); MCV 88.1 fL (80.0-100.0); Mean Platelet Volume 6.9; Monocytes # (A) 0.2 k/uL (0-1.0); Monocytes % (A) 2 %; Neutrophils # (A) 10.6 k/uL (1.3-7.7); Neutrophils % (A) 95 %; Platelet Count 143 k/uL (150-450); RBC 4.47 m/uL (3.80-5.40); RDW 14.6 % (11.5-15.5); WBC 11.1 k/uL (3.8-10.6)
[2018-03-13 09:16] LABS: Anion Gap 5 mmol/L; Blood Urea Nitrogen 20 mg/dL (7-17); Calcium 9.2 mg/dL (8.4-10.2); Carbon Dioxide 30 mmol/L (22-30); Chloride 104 mmol/L (98-107); Glucose 138 mg/dL (74-99); Sodium 139 mmol/L (137-145)
--- NOTE | 2018-03-13 09:56 | P.PN ---
Subjective Progress Note Date: 03/13/18 The patient was seen and examined at the bedside. She notes a mild improvement in her cough since using the cough syrup yesterday but continues to have wheezing. She otherwise denied fever, chills, chest pain, nausea, vomiting, abdominal pain, or diarrhea. Objective - Vital Signs Vital signs: Vital Signs Temp 98.1 F 03/13/18 05:00 Pulse 80 03/13/18 07:07 Resp 16 03/13/18 05:00 BP 137/74 03/13/18 05:28 Pulse Ox 93 L 03/13/18 05:00 Intake & Output 03/12/18 03/13/18 03/13/18 18:59 06:59 18:59 Intake Total 350 Balance 350 Intake: Oral 350 Other: Voiding Method Toilet Toilet # Voids 4 2 - Exam General: Non-toxic, in no acute distress, appears stated age HEENT: NC/AT, anicteric sclerae, moist conjunctiva, no lid-lag, PERRLA Cardiovascular: S1/S2 wnl, no murmurs, rubs, or gallops Lungs: Mildly improved air entry carolyn w/ expiratory wheezes, no accessory muscle use Abdominal: Soft, nontender, non-distended, no guarding, rebound, or rigidity Skin: Warm, dry Extremities: No edema or contractures Psychiatric: Alert and oriented to person, place and time, appropriate affect, Intact judgment Neuro: CN II-XII grossly intact, Strength 5/5 in all 4 extremities, Speech intact, Sensation to light touch grossly intact throughout - Labs CBC & Chem 7: 03/13/18 07:31 03/13/18 07:31 Labs: Abnormal Lab Results - Last 24 Hours (Table) 03/13/18 03/13/18 Range/Units 07:31 07:31 WBC 11.1 H (3.8-10.6) k/uL Plt Count 143 L (150-450) k/uL Neutrophils # 10.6 H (1.3-7.7) k/uL Lymphocytes # 0.3 L (1.0-4.8) k/uL BUN 20 H (7-17) mg/dL Glucose 138 H (74-99) mg/dL Assessment and Plan Plan: Acute hypoxic respiratory failure in setting of acute asthma exacerbation and community acquires pneumonia -C/w Augmentin -Solu-Medrol 60 mg every 6 hourly -DuoNebs, Formoterol inhal., singulair -Pulm recs appreciated. Scheduled for Bronchoscopy today. Oral thrush -C/w Diflucan History of viral myocarditis -Echocardiogram from 12/2017 revealed preserved ejection fraction -Currently on 30 day event monitor for palpitations Headache -C/w home meds: Ultram DVT//GI prophylaxis -Lovenox -Protonix CODE STATUS: Full code Discussed with: Patient Anticipated discharge date: 03/15/[address]: Home A total of 35 minutes was spent on the care of this complex patient more than 50 % of the time was spent in counseling and care coordination.
[2018-03-13] MEDS ORDERED: MIDAZOLAM 2 MG/2 ML VIAL ONE (13:06)
[2018-03-13] MEDS ORDERED: PROPOFOL 10 MG/ML 20 ML VIAL IV ONE (13:06)
[2018-03-13] MEDS: MULTIVITAMINS, THERA 1 EACH TAB PO SCH (13:06)
[2018-03-13] MEDS ORDERED: LIDOCAINE 2% INJ 20 MG/ML INTRATRACH ONE (13:40)
[2018-03-13] MEDS ORDERED: LACTATED RINGERS 1,000 ML IV ONE (13:46)
--- NOTE | 2018-03-13 16:08 | P.PN ---
Subjective Progress Note Date: 03/13/18 Principal diagnosis: Severe asthma exacerbation This is a 52-year-old white female patient with past medical history of chronic bronchial asthma, GERD, obstructive sleep apnea, morbid obesity, hypothyroidism, vitamin D deficiency, history of viral cardiomyopathy, and DJD, who was admitted to the hospital on 03/04/2018 with difficulty breathing, wheezing, chest tightness, phlegm production. Today on 03/10/2018 worsening this patient in follow-up on medical surgical floor. She is improving, still bronchospastic. Today's chest x-ray showed improvement in the appearance of right lower lobe infiltrate. Patient has been ambulating, she is on 2 L per nasal cannula, does desat on room air. Afebrile, sputum cultures with Neelima albicans, blood cultures are negative. On 03/12/2017 patient seen in follow-up on medical surgical floor. Still having persistent coughing episodes, and wheezing, still short of breath, currently on 2 L per nasal cannula her pulse ox is 94%, afebrile, hemodynamically stable. Blood culture was negative, sputum culture showed Neelima albicans, yesterday we added Diflucan, patient is on Augmentin, nebulized treatments in addition to Pulmicort and Perforomist and Mucinex. Patient has Tessalon Perles for coughing spells, and she states she has not really been effective. Has been slow to improve, we will schedule him for bronchoscopy with BAL for tomorrow. On 03/13/2017 patient seen in follow-up on medical surgical floor, still quite bronchospastic, dyspneic, and coughing, underwent bronchoscopy with BAL with Dr. Johnson today, and large mucous plugs were suctioned out of the left lung, airways were noted to be extremely inflamed, friable. Patient tolerated the procedure well, tenacious thick fluids were. Patient is on 3 L per nasal cannula with pulse ox of 95%, afebrile, hemodynamically stable. Patient was returned to her room after the procedure in stable condition. Today's labs were noted, WBCs 11.1, hemoglobin is 12.5, electrolytes and renal profile were unremarkable today. Patient continues on IV steroids, nebulized bronchodilators , cough syrup, Diflucan. Objective - Vital Signs Vital signs: Vital Signs Temp 98.0 F 03/13/18 14:15 Pulse 80 03/13/18 15:52 Resp 18 03/13/18 14:45 BP 122/65 03/13/18 14:45 Pulse Ox 95 03/13/18 14:45 Intake & Output 03/12/18 03/13/18 03/13/18 18:59 06:59 18:59 Intake Total 350 100 Balance 350 100 Intake: IV 100 Oral 350 Other: Voiding Method Toilet Toilet # Voids 4 2 2 - Exam GENERAL EXAM: Alert, pleasant 52-year-old white female, on Tuesdays per nasal cannula comfortable in no apparent distress. HEAD: Normocephalic/atraumatic. EYES: Normal reaction of pupils, equal size. Conjunctiva pink, sclera white. NOSE: Clear with pink turbinates. THROAT: No erythema or exudates. NECK: No masses, no JVD, no thyroid enlargement, no adenopathy. CHEST: No chest wall deformity. Symmetrical expansion. LUNGS: Equal air entry with diffuse wheezes, she takes shallow breaths, starts coughing with deep breathing CVS: Regular rate and rhythm, normal S1 and S2, no gallops, no murmurs, no rubs ABDOMEN: Soft, nontender. No hepatosplenomegaly, normal bowel sounds, no guarding or rigidity. EXTREMITIES: No clubbing, no edema, no cyanosis, 2+ pulses and upper and lower extremities. MUSCULOSKELETAL: Muscle strength and tone normal. SPINE: No scoliosis or deformity SKIN: No rashes CENTRAL NERVOUS SYSTEM: Alert and oriented -3. No focal deficits, tone is normal in all 4 extremities. PSYCHIATRIC: Alert and oriented -3. Appropriate affect. Intact judgment and insight. - Labs CBC & Chem 7: 03/13/18 07:31 03/13/18 07:31 Labs: Abnormal Lab Results - Last 24 Hours (Table) 03/13/18 03/13/18 Range/Units 07:31 07:31 WBC 11.1 H (3.8-10.6) k/uL Plt Count 143 L (150-450) k/uL Neutrophils # 10.6 H (1.3-7.7) k/uL Lymphocytes # 0.3 L (1.0-4.8) k/uL BUN 20 H (7-17) mg/dL Glucose 138 H (74-99) mg/dL Assessment and Plan Plan: Assessment: #1. Acute exacerbation of chronic bronchial asthma, acute by purulent tracheobronchitis and possible bronchopneumonia in the right lower lobe. #2. Acute tracheobronchitis, and tracheobronchomalacia #3. Gastroesophageal reflux disease #4. Sleep apnea syndrome #5. Morbid obesity #6. Hypothyroidism #7. Degenerative joint disease #8. Vitamin D deficiency #9. History of viral cardiomyopathy Plan: Continue current medical treatment, patient tolerated bronchoscopy with bronchoalveolar lavage. Tolerated the procedure well, mucous plugs were suctioned out of the left lung mostly, airways were quite inflamed, friable. Continue current antibiotic coverage, will await the results of the bronchial washings. I performed a history & physical examination of the patient and discussed their management with my nurse practitioner, Amanda Stover. I reviewed the nurse practitioner's note and agree with the documented findings and plan of care. Lung sounds are positive for diffuse wheezes throughout the lung luevano. The findings and the impression was discussed with the patient. I attest to the documentation by the nurse practitioner. Time with Patient: Less than 30
--- NOTE | 2018-03-13 17:50 | P.PCN ---
Date of Procedure: 03/13/18 Preoperative Diagnosis: Persistent shortness of breath, failure to respond to conventional treatment for asthma exacerbation Postoperative Diagnosis: 1 tracheal bronchomalacia 2 severe tracheobronchitis 3 mucous plugs Procedure(s) Performed: Flexible bronchoscopy and the bronchioloalveolar lavage Anesthesia: MAC Surgeon: Parish Johnson Estimated Blood Loss (ml): 0 Pathology: none sent Condition: stable Disposition: floor Operative Findings: this procedure was done after obtaining a consent and a timeout was performed. The patient was given anesthetics by ANTHROPOMETRIST the bedside. After achieving adequate sedation, the flexible bronchoscope was inserted into the right nostril was advanced into the upper airway. Examination of the posterior oropharynx, larynx epiglottis and vocal cords was done and upper airway structures were all within normal limits. Epiglottis was within normal. The arytenoids the vallecula and the 20. Vocal cords were all within normal limits. No lesions. No abnormalities. The functionality of the vocal cords was within normal limits. A total of 2 mL of 1% lidocaine was applied to the vocal cords and following that the patient was intubated by the flexible bronchoscope. Immediately after inserting the flexible bronchoscope, it was noted that the trachea was full of respiratory secretions and there was a significant degree of tracheal bronchomalacia with there was dynamic obstruction of the tracheal wall by the membranous trachea with complete occlusion upon expiratory maneuvers and coughing. Therapeutic airway suctioning was done. Airway inspection was completed and there was diffuse inflammatory changes and tracheal bronchitis involving the distal trachea and left mainstem bronchi in addition to the left upper lobe bronchus and left lower lobe bronchi. Less degree of inflammation was seen in the right upper lobe and to lesser extent in the right middle lobe and right lower lobe. Copious amount of mucous plugs were identified occupying the left mainstem bronchus and typically it was suctioning was done after loosening the rest or secretions by saline. A total of 20 mL of saline was infused into the left lung and this was enough to loosen up and suctioned out the mucous plugs from the left lung. Following that, airway inspection was completed and the visualized airways included the left mainstem bronchus, left upper lobe bronchus and left lower lobe bronchus in addition today right upper lobe bronchus regular lobe bronchus right lower lobe bronchus and the various segments and subsegments. Diffuse inflammatory changes were seen on the left compared to the right. A bronchial alveolar lavage of the left upper lobe was done. A total of 25-30 mL of bronchioloalveolar lavage was collected. Following that the bronchoscope was removed and the patient completed the procedure without any oxygen desaturation or hemodynamic instability. She was able to tolerate the procedure well. A sample was sent for microbial analysis and cultures.
[2018-03-13] MEDS: PROMETHAZ-COD 6.25-10 MG/5 ML 5 ML CUP PO PRN (22:32)
[2018-03-14] MEDS: IPRATROPIUM-ALBUTEROL 3 ML NEB INHALATION SCH ×6 (00:28→20:27)
[2018-03-14] MEDS: methylPREDNISolone SOD SUCCI 125 MG/2 ML VIAL IV SCH ×4 (01:00→18:24)
[2018-03-14] MEDS: BUDESONIDE 1 MG/2 ML NEBU INHALATION SCH ×2 (08:03→20:26)
[2018-03-14] MEDS: FORMOTEROL FUMARATE 20 MCG/2 ML NEBU INHALATION SCH ×2 (08:03→20:26)
[2018-03-14] MEDS: FLUCONAZOLE 100 MG TAB PO SCH (08:38)
[2018-03-14] MEDS: BENZONATATE 100 MG CAP PO SCH ×3 (08:38→22:11)
[2018-03-14] MEDS: ENOXAPARIN 40 MG/0.4 ML SYRINGE SQ SCH (08:38)
[2018-03-14] MEDS: AMOXIC-POT CLAV 875-125MG 1 EACH TAB PO SCH ×2 (08:38→22:11)
[2018-03-14] MEDS: DILTIAZEM CD 300 MG CAP.ER.24H PO SCH (08:38)
[2018-03-14] MEDS: POLYETHYLENE GLYCOL 3350 17 GM POWD.PACK PO SCH (08:38)
[2018-03-14] MEDS: MONTELUKAST 10 MG TAB PO SCH (08:38)
[2018-03-14] MEDS: VENLAFAXINE HCL ER 37.5 MG CAP PO SCH (08:38)
[2018-03-14] MEDS: guaiFENesin 600 MG TABLET.ER PO SCH ×2 (08:39→22:07)
[2018-03-14] MEDS: FERROUS SULFATE 325 MG TAB PO SCH ×2 (08:39→22:07)
[2018-03-14] MEDS: PANTOPRAZOLE 40 MG TABLET PO SCH (08:39)
[2018-03-14] MEDS: traMADol 50 MG TAB PO SCH ×3 (08:39→22:07)
[2018-03-14] MEDS: FLUTICASONE 50MCG/SPRAY NASAL 16GM EA NOSTRIL SCH (08:40)
[2018-03-14] MEDS: MULTIVITAMINS, THERA 1 EACH TAB PO SCH (13:34)
--- NOTE | 2018-03-14 13:37 | P.PN ---
Subjective Progress Note Date: 03/14/18 Principal diagnosis: Acute exacerbation of severe moderate persistent chronic bronchial asthma This is a very pleasant 52-year-old female patient with a known history of chronic bronchial asthma, GERD, obstructive sleep apnea, morbid obesity, hypothyroidism, vitamin D deficiency, history of viral cardiomyopathy and degenerative joint disease. She had been admitted for an acute exacerbation of her chronic bronchial asthma. It was severe and persistent and she was slow to progress. She did undergo bronchoscopy with BAL by Dr. Johnson yesterday. There were thick mucous that have been sent for analysis. Her bronchial tubes were quite inflamed and friable. She is seen again today in follow-up on the regular medical floor. She is currently sitting up in a chair at the bedside. She is breathing quite a bit easier today as compared to yesterday. Not quite back to her baseline. Maintaining good O2 saturations in the 90s on 3 L/m per nasal cannula. Afebrile. Hemodynamically stable. He is currently on Augmentin along with DuoNeb inhalations, Pulmicort and Perforomist inhalations, Tessalon Perles, Mucinex, IV Solu-Medrol. Objective - Vital Signs Vital signs: Vital Signs Temp 98 F 03/14/18 12:33 Pulse 94 03/14/18 12:33 Resp 22 03/14/18 12:33 BP 134/80 03/14/18 12:33 Pulse Ox 93 L 03/14/18 12:33 Intake & Output 03/13/18 03/14/18 03/14/18 18:59 06:59 18:59 Intake Total 100 1190 240 Balance 100 1190 240 Intake: IV 100 Oral 1190 240 Other: Voiding Method Toilet Toilet # Voids 2 3 - Exam GENERAL EXAM: Obese. Alert, active, comfortable in no apparent distress. On nasal cannula. HEAD: Normocephalic. EYES: Normal reaction of pupils, equal size. NOSE: Clear with pink turbinates. THROAT: No erythema or exudates. NECK: No masses, no JVD. CHEST: No chest wall deformity. LUNGS: Equal air entry with end expiratory wheeze, diminished CVS: S1 and S2 normal with no audible murmur, regular rhythm. ABDOMEN: No hepatosplenomegaly, normal bowel sounds, no guarding or rigidity. SPINE: No scoliosis or deformity SKIN: No rashes CENTRAL NERVOUS SYSTEM: No focal deficits, tone is normal in all 4 extremities. EXTREMITIES: There is no peripheral edema. No clubbing, no cyanosis. Peripheral pulses are intact. - Labs CBC & Chem 7: 03/13/18 07:31 03/13/18 07:31 Labs: Microbiology - Last 24 Hours (Table) 03/13/18 13:37 Gram Stain - Preliminary Bronchoalviolar Lavage - Right Bronchial Washings Culture - Preliminary 03/13/18 13:37 Fungal Culture - Preliminary Bronchoalviolar Lavage - Right Assessment and Plan Assessment: Assessment: #1. Acute exacerbation of chronic bronchial asthma, acute by purulent tracheobronchitis and possible bronchopneumonia in the right lower lobe. #2. Acute tracheobronchitis, and tracheobronchomalacia #3. Gastroesophageal reflux disease #4. Sleep apnea syndrome #5. Morbid obesity #6. Hypothyroidism #7. Degenerative joint disease #8. Vitamin D deficiency #9. History of viral cardiomyopathy Plan: The patient was seen and evaluated by Dr. Johnson. Bronchial lavage still pending. She remains on Augmentin for now. Continue her current treatment plan. Increase her activity as tolerated. We'll continue to follow. I, the cosigning physician, performed a history & physical examination of the patient. Lungs sounds with bilateral end expiratory wheeze. Maintaining good O2 saturations in the 90s on 3 L/m per nasal cannula. I discussed the assessment and plan of care with my nurse practitioner, Edda Christensen. I attest to the above note as dictated by her.
--- NOTE | 2018-03-14 16:54 | P.PN ---
Subjective Progress Note Date: 03/14/18 The patient was seen and examined at the bedside. She underwent the Bronch w/ lavagae yesterday and notes that her breathing has improved since. She continues to have cough with wheezing though improved. She otherwise denied fever, chills, nausea, vomiting, abdominal pain, or dysuria. Objective - Vital Signs Vital signs: Vital Signs Temp 98 F 03/14/18 12:33 Pulse 92 03/14/18 16:18 Resp 22 03/14/18 12:33 BP 134/80 03/14/18 12:33 Pulse Ox 93 L 03/14/18 12:33 Intake & Output 03/13/18 03/14/18 03/14/18 18:59 06:59 18:59 Intake Total 100 1190 240 Balance 100 1190 240 Intake: IV 100 Oral 1190 240 Other: Voiding Method Toilet Toilet # Voids 2 3 3 - Exam General: Non-toxic, in no acute distress, appears stated age HEENT: NC/AT, anicteric sclerae, moist conjunctiva, no lid-lag, PERRLA Cardiovascular: S1/S2 wnl, no murmurs, rubs, or gallops Lungs: Improved air entry carolyn w/ expiratory wheezes, no accessory muscle use Abdominal: Soft, nontender, non-distended, no guarding, rebound, or rigidity Skin: Warm, dry Extremities: No edema or contractures Psychiatric: Alert and oriented to person, place and time, appropriate affect, Intact judgment Neuro: CN II-XII grossly intact, Strength 5/5 in all 4 extremities, Speech intact, Sensation to light touch grossly intact throughout - Labs CBC & Chem 7: 03/13/18 07:31 03/13/18 07:31 Labs: Microbiology - Last 24 Hours (Table) 03/13/18 13:37 Gram Stain - Preliminary Bronchoalviolar Lavage - Right Bronchial Washings Culture - Preliminary 03/13/18 13:37 Fungal Culture - Preliminary Bronchoalviolar Lavage - Right Assessment and Plan Plan: Acute hypoxic respiratory failure in setting of acute asthma exacerbation and community acquires pneumonia -C/w Augmentin -Solu-Medrol 60 mg every 6 hourly -DuoNebs, Formoterol inhal., singulair -Pulm recs appreciated. Bronch studies pending. Oral thrush -C/w Diflucan History of viral myocarditis -Echocardiogram from 12/2017 revealed preserved ejection fraction -Currently on 30 day event monitor for palpitations Headache -C/w home meds: Ultram DVT//GI prophylaxis -Lovenox -Protonix CODE STATUS: Full code Discussed with: Patient Anticipated discharge date: 03/16/[address]: Home A total of 35 minutes was spent on the care of this complex patient more than 50 % of the time was spent in counseling and care coordination.
[2018-03-14] MEDS: PROMETHAZ-COD 6.25-10 MG/5 ML 5 ML CUP PO PRN (22:07)
[2018-03-15] MEDS: IPRATROPIUM-ALBUTEROL 3 ML NEB INHALATION SCH ×7 (00:04→23:03)
[2018-03-15] MEDS: methylPREDNISolone SOD SUCCI 125 MG/2 ML VIAL IV SCH ×5 (00:21→23:49)
[2018-03-15] MEDS: FORMOTEROL FUMARATE 20 MCG/2 ML NEBU INHALATION SCH ×2 (06:52→18:46)
[2018-03-15] MEDS: BUDESONIDE 1 MG/2 ML NEBU INHALATION SCH ×2 (06:52→18:46)
--- NOTE | 2018-03-15 08:16 | P.PN ---
Subjective The patient was seen and examined at the bedside. The patient notes that she initially had improvement in her breathing after the bronchoscopy with lavage 2 days ago, but since yesterday has had continued wheezing and shortness of breath. She however denied chest pain, nausea, vomiting, fever, chills, dysuria , or diarrhea. Objective - Vital Signs Vital signs: Vital Signs Temp 97.6 F 03/15/18 04:39 Pulse 84 03/15/18 07:23 Resp 20 03/15/18 04:39 BP 134/66 03/14/18 21:00 Pulse Ox 93 L 03/15/18 04:39 Intake & Output 03/14/18 03/15/18 03/15/18 18:59 06:59 18:59 Intake Total 240 650 Balance 240 650 Intake: Oral 240 650 Other: Voiding Method Toilet # Voids 3 1 - Exam General: Non-toxic, in no acute distress, appears stated age HEENT: NC/AT, anicteric sclerae, moist conjunctiva, no lid-lag, PERRLA Cardiovascular: S1/S2 wnl, no murmurs, rubs, or gallops Lungs: Poor air entry carolyn w/ expiratory wheezes, no accessory muscle use Abdominal: Soft, nontender, non-distended, no guarding, rebound, or rigidity Skin: Warm, dry Extremities: No edema or contractures Psychiatric: Alert and oriented to person, place and time, appropriate affect, Intact judgment Neuro: CN II-XII grossly intact, Strength 5/5 in all 4 extremities, Speech intact, Sensation to light touch grossly intact throughout - Labs CBC & Chem 7: 03/13/18 07:31 03/13/18 07:31 Labs: Microbiology - Last 24 Hours (Table) 03/13/18 13:37 Gram Stain - Preliminary Bronchoalviolar Lavage - Right Bronchial Washings Culture - Preliminary 03/13/18 13:37 Fungal Culture - Preliminary Bronchoalviolar Lavage - Right Assessment and Plan Plan: Acute hypoxic respiratory failure in setting of acute asthma exacerbation and community acquires pneumonia -C/w Augmentin -Solu-Medrol 60 mg every 6 hourly -DuoNebs, Formoterol inhal., singulair -Pulm recs appreciated. Bronch studies pending. Oral thrush -C/w Diflucan History of viral myocarditis -Echocardiogram from 12/2017 revealed preserved ejection fraction -Currently on 30 day event monitor for palpitations Headache -C/w home meds: Ultram DVT//GI prophylaxis -Lovenox -Protonix CODE STATUS: Full code Discussed with: Patient Anticipated discharge date: 03/17/[address]: Home A total of 30 minutes was spent on the care of this complex patient more than 50 % of the time was spent in counseling and care coordination.
[2018-03-15] MEDS: PANTOPRAZOLE 40 MG TABLET PO SCH (08:39)
[2018-03-15] MEDS: MONTELUKAST 10 MG TAB PO SCH (08:39)
[2018-03-15] MEDS: AMOXIC-POT CLAV 875-125MG 1 EACH TAB PO SCH ×2 (08:39→21:22)
[2018-03-15] MEDS: guaiFENesin 600 MG TABLET.ER PO SCH ×2 (08:39→21:22)
[2018-03-15] MEDS: DILTIAZEM CD 300 MG CAP.ER.24H PO SCH (08:40)
[2018-03-15] MEDS: FERROUS SULFATE 325 MG TAB PO SCH ×2 (08:40→21:22)
[2018-03-15] MEDS: VENLAFAXINE HCL ER 37.5 MG CAP PO SCH (08:40)
[2018-03-15] MEDS: traMADol 50 MG TAB PO SCH ×3 (08:40→21:22)
[2018-03-15] MEDS: BENZONATATE 100 MG CAP PO SCH ×3 (08:40→21:22)
[2018-03-15] MEDS: FLUTICASONE 50MCG/SPRAY NASAL 16GM EA NOSTRIL SCH (08:40)
[2018-03-15] MEDS: ENOXAPARIN 40 MG/0.4 ML SYRINGE SQ SCH (08:40)
[2018-03-15] MEDS: MULTIVITAMINS, THERA 1 EACH TAB PO SCH (08:40)
[2018-03-15] MEDS: FLUCONAZOLE 100 MG TAB PO SCH (08:41)
[2018-03-15] MEDS: POLYETHYLENE GLYCOL 3350 17 GM POWD.PACK PO SCH (08:41)
--- NOTE | 2018-03-15 13:37 | P.PN ---
Subjective Progress Note Date: 03/15/18 Principal diagnosis: Severe asthma exacerbation This is a 52-year-old white female patient with past medical history of chronic bronchial asthma, GERD, obstructive sleep apnea, morbid obesity, hypothyroidism, vitamin D deficiency, history of viral cardiomyopathy, and DJD, who was admitted to the hospital on 03/04/2018 with difficulty breathing, wheezing, chest tightness, phlegm production. Today on 03/10/2018 worsening this patient in follow-up on medical surgical floor. She is improving, still bronchospastic. Today's chest x-ray showed improvement in the appearance of right lower lobe infiltrate. Patient has been ambulating, she is on 2 L per nasal cannula, does desat on room air. Afebrile, sputum cultures with Neelima albicans, blood cultures are negative. On 03/12/2017 patient seen in follow-up on medical surgical floor. Still having persistent coughing episodes, and wheezing, still short of breath, currently on 2 L per nasal cannula her pulse ox is 94%, afebrile, hemodynamically stable. Blood culture was negative, sputum culture showed Neelima albicans, yesterday we added Diflucan, patient is on Augmentin, nebulized treatments in addition to Pulmicort and Perforomist and Mucinex. Patient has Tessalon Perles for coughing spells, and she states she has not really been effective. Has been slow to improve, we will schedule him for bronchoscopy with BAL for tomorrow. On 03/13/2017 patient seen in follow-up on medical surgical floor, still quite bronchospastic, dyspneic, and coughing, underwent bronchoscopy with BAL with Dr. Johnson today, and large mucous plugs were suctioned out of the left lung, airways were noted to be extremely inflamed, friable. Patient tolerated the procedure well, tenacious thick fluids were. Patient is on 3 L per nasal cannula with pulse ox of 95%, afebrile, hemodynamically stable. Patient was returned to her room after the procedure in stable condition. Today's labs were noted, WBCs 11.1, hemoglobin is 12.5, electrolytes and renal profile were unremarkable today. Patient continues on IV steroids, nebulized bronchodilators , cough syrup, Diflucan. On 03/15/2018 patient seen in follow-up on medical surgical fimproving, but states that last night she did have some shortness of breath, still feels some physical exam with minimal wheezing, lung sounds are diminished, though has some coughing, but the cough has subsided, patient will increase activity today, will be ambulated on portable oxygen,sputum cultures is positive for Neelima albicans, BAL culture howed no growth so far. Patient is complaining oral course of Augmentin Objective - Vital Signs Vital signs: Vital Signs Temp 98 F 03/15/18 12:40 Pulse 82 03/15/18 12:40 Resp 16 03/15/18 12:40 BP 136/74 03/15/18 12:40 Pulse Ox 95 03/15/18 12:40 Intake & Output 03/14/18 03/15/18 03/15/18 18:59 06:59 18:59 Intake Total 240 650 Balance 240 650 Intake: Oral 240 650 Other: Voiding Method Toilet Toilet # Voids 3 1 - Exam GENERAL EXAM: Alert, pleasant 52-year-old white female, on Tuesdays per nasal cannula comfortable in no apparent distress. HEAD: Normocephalic/atraumatic. EYES: Normal reaction of pupils, equal size. Conjunctiva pink, sclera white. NOSE: Clear with pink turbinates. THROAT: No erythema or exudates. NECK: No masses, no JVD, no thyroid enlargement, no adenopathy. CHEST: No chest wall deformity. Symmetrical expansion. LUNGS: Equal air entry with diminished breath sounds, with minimal wheezing, cough has subsided, and patient is able to take deep breaths without coughing CVS: Regular rate and rhythm, normal S1 and S2, no gallops, no murmurs, no rubs ABDOMEN: Soft, nontender. No hepatosplenomegaly, normal bowel sounds, no guarding or rigidity. EXTREMITIES: No clubbing, no edema, no cyanosis, 2+ pulses and upper and lower extremities. MUSCULOSKELETAL: Muscle strength and tone normal. SPINE: No scoliosis or deformity SKIN: No rashes CENTRAL NERVOUS SYSTEM: Alert and oriented -3. No focal deficits, tone is normal in all 4 extremities. PSYCHIATRIC: Alert and oriented -3. Appropriate affect. Intact judgment and insight. - Labs CBC & Chem 7: 03/13/18 07:31 03/13/18 07:31 Labs: Abnormal Lab Results - Last 24 Hours (Table) 03/13/18 Range/Units 13:37 Viral Test See Below H Microbiology - Last 24 Hours (Table) 03/13/18 13:37 Gram Stain - Preliminary Bronchoalviolar Lavage - Right Bronchial Washings Culture - Preliminary Assessment and Plan Plan: Assessment: #1. Acute exacerbation of chronic bronchial asthma, acute by purulent tracheobronchitis and possible bronchopneumonia in the right lower lobe. #2. Acute tracheobronchitis, and tracheobronchomalacia #3. Gastroesophageal reflux disease #4. Sleep apnea syndrome #5. Morbid obesity #6. Hypothyroidism #7. Degenerative joint disease #8. Vitamin D deficiency #9. History of viral cardiomyopathy Plan: BAL cultures remain negative thus far, pills, she is improving, increase activity, encourage ambulation, we'll continue inpatient treatment, possible discharge in next 24 hours. I performed a history & physical examination of the patient and discussed their management with my nurse practitioner, Amanda Stover. I reviewed the nurse practitioner's note and agree with the documented findings and plan of care. Lung sounds are positive for minimal wheezing. The findings and the impression was discussed with the patient. I attest to the documentation by the nurse practitioner. Time with Patient: Less than 30
[2018-03-15] MEDS: PROMETHAZ-COD 6.25-10 MG/5 ML 5 ML CUP PO PRN (21:26)
[2018-03-16] MEDS: IPRATROPIUM-ALBUTEROL 3 ML NEB INHALATION SCH ×6 (03:01→23:08)
[2018-03-16] MEDS: methylPREDNISolone SOD SUCCI 125 MG/2 ML VIAL IV SCH ×4 (05:41→23:40)
[2018-03-16] MEDS: BUDESONIDE 1 MG/2 ML NEBU INHALATION SCH ×2 (08:10→19:41)
[2018-03-16] MEDS: FORMOTEROL FUMARATE 20 MCG/2 ML NEBU INHALATION SCH ×2 (08:10→19:41)
[2018-03-16] MEDS: POLYETHYLENE GLYCOL 3350 17 GM POWD.PACK PO SCH (10:27)
[2018-03-16] MEDS: MULTIVITAMINS, THERA 1 EACH TAB PO SCH (10:28)
[2018-03-16] MEDS: AMOXIC-POT CLAV 875-125MG 1 EACH TAB PO SCH ×2 (10:28→20:18)
[2018-03-16] MEDS: VENLAFAXINE HCL ER 37.5 MG CAP PO SCH (10:28)
[2018-03-16] MEDS: MONTELUKAST 10 MG TAB PO SCH (10:28)
[2018-03-16] MEDS: FLUCONAZOLE 100 MG TAB PO SCH (10:28)
[2018-03-16] MEDS: DILTIAZEM CD 300 MG CAP.ER.24H PO SCH (10:28)
[2018-03-16] MEDS: BENZONATATE 100 MG CAP PO SCH ×3 (10:28→21:32)
[2018-03-16] MEDS: FERROUS SULFATE 325 MG TAB PO SCH (10:28)
[2018-03-16] MEDS: PANTOPRAZOLE 40 MG TABLET PO SCH (10:28)
[2018-03-16] MEDS: ENOXAPARIN 40 MG/0.4 ML SYRINGE SQ SCH (10:28)
[2018-03-16] MEDS: traMADol 50 MG TAB PO SCH ×3 (10:31→21:32)
[2018-03-16] MEDS: guaiFENesin 600 MG TABLET.ER PO SCH ×2 (10:32→20:18)
[2018-03-16] MEDS: FLUTICASONE 50MCG/SPRAY NASAL 16GM EA NOSTRIL SCH (10:32)
--- NOTE | 2018-03-16 12:49 | P.PN ---
Subjective Progress Note Date: 03/16/18 The patient is a 52 yo F with a PMH of asthma and viral myocarditis presented to the ED w/ cough, SOB, wheezing, and sinus congestion. The patient was noted to have a RLL infiltrate, WBC count 14.5, and hypoxic in the ED. She was admitted to the medicine service for acute asthma exacerbation and sepsis from community acquired pnuemonia. The patient was started on abxs, IV steroids and bronchodilators though had only minimal relief with several days of therapy. Pulmonary medicine was consulted and recommended a bronchoscopy with BAL. She underwent the procedure which revealed large mucous plus that were suctioned out with airways noted to be inflamed and friable. The patient was seen and examined at the bedside. She continues to be dyspneic. She ambulated on the unit yesterday and was hypoxic to 81% when off oxygen therapy. She is stable at 96% with 2L NC at rest. She denied fever, chills or chest pain. Also denied abdominal pain, nausea, vomiting, or diarrhea. Objective - Vital Signs Vital signs: Vital Signs Temp 98.2 F 03/16/18 05:00 Pulse 76 03/16/18 11:23 Resp 17 03/16/18 05:00 BP 149/74 03/16/18 05:00 Pulse Ox 97 03/16/18 05:00 Intake & Output 03/15/18 03/16/18 03/16/18 18:59 06:59 18:59 Intake Total 1330 Balance 1330 Intake: Oral 1330 Other: Voiding Method Toilet Toilet Toilet # Voids 3 3 # Bowel Movements 2 - Exam General: Non-toxic, in no acute distress, appears stated age, morbidly obese HEENT: NC/AT, anicteric sclerae, moist conjunctiva, no lid-lag, PERRLA Cardiovascular: S1/S2 wnl, no murmurs, rubs, or gallops Lungs: Poor air entry carolyn w/ minimal wheezing, normal respiratory effort, no accessory muscle use Abdominal: Soft, non-tender, non-distended, no guarding, rebound, or rigidity Skin: Warm, dry Extremities: Trace LE edema carolyn LEs Psychiatric: Alert and oriented to person, place and time, appropriate affect Neuro: CN II-XII grossly intact, Strength 5/5 in all 4 extremities, Speech intact, Sensation to light touch grossly intact throughout - Labs CBC & Chem 7: 03/13/18 07:31 03/13/18 07:31 Labs: Abnormal Lab Results - Last 24 Hours (Table) 03/13/18 Range/Units 13:37 Viral Test See Below H Microbiology - Last 24 Hours (Table) 03/13/18 13:37 Gram Stain - Final Bronchoalviolar Lavage - Right Bronchial Washings Culture - Final Assessment and Plan Plan: Acute hypoxic respiratory failure in setting of acute asthma exacerbation w/ purulent tracheobronchitis and bronchopneumonia -C/w Augmentin for now -Solu-Medrol 60 mg every 6 hourly -DuoNebs, Formoterol inhal., singulair -Pulm recs appreciated. Bronch studies pending. Oral thrush -C/w Diflucan History of viral myocarditis -Echocardiogram from 12/2017 revealed preserved ejection fraction -Currently on 30 day event monitor for palpitations Headache -C/w home meds: Ultram DVT//GI prophylaxis -Lovenox -Protonix CODE STATUS: Full code Discussed with: Patient Anticipated discharge date: 03/17/[address]: Home A total of 30 minutes was spent on the care of this complex patient more than 50 % of the time was spent in counseling and care coordination.
[2018-03-16] MEDS: CHOLECALCIFEROL 1,000 UNIT TAB PO SCH (16:06)
--- NOTE | 2018-03-16 16:53 | P.PN ---
Subjective Progress Note Date: 03/16/18 On today's evaluation of 03/16/2018, I think It is doing better. Although she is short of breath and she has several coughing spells, on examination she is less bronchospastic and wheezy. The bronchioloalveolar lavage was collected at time of the bronchoscopy yielded a positive growth for RSV virus. Rest the microbial cultures were all negative. On room air the patient is still desaturating down to 81% and she is in need fraction therapy which is set at 2 L per minute nasal cannula. The patient is receiving empiric antibiotic coverage with Augmentin clother in and this will be completed. She is on IV Solu- Medrol pH is on DuoNeb nebulized treatments around the clock. The plan is to gradually weaned off the IV Solu Medrol and transition this patient to oral prednisone over the next 24 hours. Objective - Vital Signs Vital signs: Vital Signs Temp 97.7 F 03/16/18 12:49 Pulse 78 03/16/18 15:28 Resp 17 03/16/18 12:49 BP 151/72 03/16/18 12:49 Pulse Ox 93 L 03/16/18 12:49 Intake & Output 03/15/18 03/16/18 03/16/18 18:59 06:59 18:59 Intake Total 1330 600 Balance 1330 600 Intake: Oral 1330 600 Other: Voiding Method Toilet Toilet Toilet # Voids 3 3 2 # Bowel Movements 2 1 - Exam GENERAL EXAM: Alert, pleasant 52-year-old white female, on Tuesdays per nasal cannula comfortable in no apparent distress. HEAD: Normocephalic/atraumatic. EYES: Normal reaction of pupils, equal size. Conjunctiva pink, sclera white. NOSE: Clear with pink turbinates. THROAT: No erythema or exudates. NECK: No masses, no JVD, no thyroid enlargement, no adenopathy. CHEST: No chest wall deformity. Symmetrical expansion. LUNGS: Equal air entry with diffuse wheezes CVS: Regular rate and rhythm, normal S1 and S2, no gallops, no murmurs, no rubs ABDOMEN: Soft, nontender. No hepatosplenomegaly, normal bowel sounds, no guarding or rigidity. EXTREMITIES: No clubbing, no edema, no cyanosis, 2+ pulses and upper and lower extremities. MUSCULOSKELETAL: Muscle strength and tone normal. SPINE: No scoliosis or deformity SKIN: No rashes CENTRAL NERVOUS SYSTEM: Alert and oriented -3. No focal deficits, tone is normal in all 4 extremities. PSYCHIATRIC: Alert and oriented -3. Appropriate affect. Intact judgment and insight. - Labs CBC & Chem 7: 03/13/18 07:31 03/13/18 07:31 Labs: Microbiology - Last 24 Hours (Table) 03/13/18 13:37 Gram Stain - Final Bronchoalviolar Lavage - Right Bronchial Washings Culture - Final Assessment and Plan Plan: #1. Acute exacerbation of chronic bronchial asthma, acute by purulent tracheobronchitis and possible bronchopneumonia in the right lower lobe. Despite ongoing treatment here in the hospital with the combination of bronchodilators and steroids, the patient is still short of breath and bronchospastic and wheezy. She is having frequent coughing spells. She has also been lobe oropharyngeal thrush. The patient furthermore had a bronchoscopy and the patient was found to have RSV virus positive in the lavage. The patient is currently on oral Diflucan. She is still on IV Solu- Medrol. She is on DuoNeb nebulized treatments around the clock. She is gradually improving. #2. Gastroesophageal reflux disease #3. Sleep apnea syndrome #4. Morbid obesity #5. Hypothyroidism #6. Degenerative joint disease #7. Vitamin D deficiency #8. History of viral cardiomyopathy #9 oropharyngeal thrush Plan Today same treatment. We will switch this patient to oral prednisone in a.m. Continue Diflucan. Arrange for home O2. This is self-limiting condition and he will take probably 2-3 weeks for this patient to recover from her condition. We'll continue to follow.
[2018-03-16] MEDS: PROMETHAZ-COD 6.25-10 MG/5 ML 5 ML CUP PO PRN (20:19)
[2018-03-17] MEDS: IPRATROPIUM-ALBUTEROL 3 ML NEB INHALATION SCH ×6 (03:10→23:35)
[2018-03-17] MEDS: methylPREDNISolone SOD SUCCI 125 MG/2 ML VIAL IV SCH (05:48)
[2018-03-17 07:39] LABS: HCT 38.5 % (34.0-46.0); HGB 12.4 gm/dL (11.4-16.0); MCHC 32.1 g/dL (31.0-37.0); MCV 90.2 fL (80.0-100.0); Mean Platelet Volume 7.2; Platelet Count 118 k/uL (150-450); RBC 4.27 m/uL (3.80-5.40); RDW 14.8 % (11.5-15.5); WBC 12.5 k/uL (3.8-10.6)
[2018-03-17] MEDS: FORMOTEROL FUMARATE 20 MCG/2 ML NEBU INHALATION SCH ×2 (07:40→19:49)
[2018-03-17] MEDS: BUDESONIDE 1 MG/2 ML NEBU INHALATION SCH ×2 (07:40→19:49)
[2018-03-17 07:52] LABS: Anion Gap 8 mmol/L; Blood Urea Nitrogen 20 mg/dL (7-17); Calcium 9.1 mg/dL (8.4-10.2); Carbon Dioxide 34 mmol/L (22-30); Chloride 100 mmol/L (98-107); Glucose 165 mg/dL (74-99); Potassium 4.1 mmol/L (3.5-5.1); Sodium 142 mmol/L (137-145)
[2018-03-17] MEDS: CHOLECALCIFEROL 1,000 UNIT TAB PO SCH (08:17)
[2018-03-17] MEDS: FLUCONAZOLE 100 MG TAB PO SCH (08:18)
[2018-03-17] MEDS: MULTIVITAMINS, THERA 1 EACH TAB PO SCH (08:18)
[2018-03-17] MEDS: FERROUS SULFATE 325 MG TAB PO SCH ×2 (08:18→21:23)
[2018-03-17] MEDS: PANTOPRAZOLE 40 MG TABLET PO SCH (08:18)
[2018-03-17] MEDS: BENZONATATE 100 MG CAP PO SCH ×3 (08:18→21:24)
[2018-03-17] MEDS: guaiFENesin 600 MG TABLET.ER PO SCH ×2 (08:18→21:23)
[2018-03-17] MEDS: POLYETHYLENE GLYCOL 3350 17 GM POWD.PACK PO SCH (08:18)
[2018-03-17] MEDS: DILTIAZEM CD 300 MG CAP.ER.24H PO SCH (08:18)
[2018-03-17] MEDS: MONTELUKAST 10 MG TAB PO SCH (08:18)
[2018-03-17] MEDS: FLUTICASONE 50MCG/SPRAY NASAL 16GM EA NOSTRIL SCH (08:18)
[2018-03-17] MEDS: ENOXAPARIN 40 MG/0.4 ML SYRINGE SQ SCH (08:18)
[2018-03-17] MEDS: VENLAFAXINE HCL ER 37.5 MG CAP PO SCH (08:25)
[2018-03-17] MEDS: traMADol 50 MG TAB PO SCH ×3 (08:28→21:23)
--- NOTE | 2018-03-17 11:00 | P.PN ---
Subjective Progress Note Date: 03/17/18 Principal diagnosis: Severe asthma exacerbation This is a 52-year-old white female patient with past medical history of chronic bronchial asthma, GERD, obstructive sleep apnea, morbid obesity, hypothyroidism, vitamin D deficiency, history of viral cardiomyopathy, and DJD, who was admitted to the hospital on 03/04/2018 with difficulty breathing, wheezing, chest tightness, phlegm production. Today on 03/10/2018 worsening this patient in follow-up on medical surgical floor. She is improving, still bronchospastic. Today's chest x-ray showed improvement in the appearance of right lower lobe infiltrate. Patient has been ambulating, she is on 2 L per nasal cannula, does desat on room air. Afebrile, sputum cultures with Neelima albicans, blood cultures are negative. On 03/12/2017 patient seen in follow-up on medical surgical floor. Still having persistent coughing episodes, and wheezing, still short of breath, currently on 2 L per nasal cannula her pulse ox is 94%, afebrile, hemodynamically stable. Blood culture was negative, sputum culture showed Neelima albicans, yesterday we added Diflucan, patient is on Augmentin, nebulized treatments in addition to Pulmicort and Perforomist and Mucinex. Patient has Tessalon Perles for coughing spells, and she states she has not really been effective. Has been slow to improve, we will schedule him for bronchoscopy with BAL for tomorrow. On 03/13/2017 patient seen in follow-up on medical surgical floor, still quite bronchospastic, dyspneic, and coughing, underwent bronchoscopy with BAL with Dr. Johnson today, and large mucous plugs were suctioned out of the left lung, airways were noted to be extremely inflamed, friable. Patient tolerated the procedure well, tenacious thick fluids were. Patient is on 3 L per nasal cannula with pulse ox of 95%, afebrile, hemodynamically stable. Patient was returned to her room after the procedure in stable condition. Today's labs were noted, WBCs 11.1, hemoglobin is 12.5, electrolytes and renal profile were unremarkable today. Patient continues on IV steroids, nebulized bronchodilators , cough syrup, Diflucan. On 03/15/2018 patient seen in follow-up on medical surgical fimproving, but states that last night she did have some shortness of breath, still feels some physical exam with minimal wheezing, lung sounds are diminished, though has some coughing, but the cough has subsided, patient will increase activity today, will be ambulated on portable oxygen,sputum cultures is positive for Neelima albicans, BAL culture howed no growth so far. Patient is complaining oral course of Augmentin On 03/17/2018 patient seen in follow-up on medical surgical floor. Awake and alert, in no acute distress, still has some coughing, lung sounds are diminished with end-expiratory wheezing. Patient states she is dyspneic with exertion, and she is having to sit up in bed to be able to sleep at night. No fever or chills, patient's serology did reveal respiratory syncytial virus. Bronchial wash cultures were negative. Today's labs have been reviewed, to PVCs 12.5, hemoglobin is 12.4, sodium is 142, potassium is 4.1, CO2 is 34, B1 is 20 and creatinine 0.60. Overall patient is improving. She has been up ambulating, she remains on 2 L per nasal cannula a pulse ox of 94%. Patient has completed oral course of Augmentin. Objective - Vital Signs Vital signs: Vital Signs Temp 98.2 F 03/17/18 04:26 Pulse 79 03/17/18 07:59 Resp 16 03/17/18 04:26 BP 148/79 03/17/18 04:26 Pulse Ox 94 L 03/17/18 04:26 Intake & Output 03/16/18 03/17/18 03/17/18 18:59 06:59 18:59 Intake Total 600 1320 Balance 600 1320 Intake: Oral 600 1320 Other: Voiding Method Toilet Toilet Toilet # Voids 2 3 # Bowel Movements 1 - Exam GENERAL EXAM: Alert, pleasant 52-year-old white female, on 2 l/min per nasal cannula comfortable in no apparent distress. HEAD: Normocephalic/atraumatic. EYES: Normal reaction of pupils, equal size. Conjunctiva pink, sclera white. NOSE: Clear with pink turbinates. THROAT: No erythema or exudates. NECK: No masses, no JVD, no thyroid enlargement, no adenopathy. CHEST: No chest wall deformity. Symmetrical expansion. LUNGS: Equal air entry with diminished breath sounds, with minimal wheezing, cough has subsided, and patient is able to take deep breaths without coughing CVS: Regular rate and rhythm, normal S1 and S2, no gallops, no murmurs, no rubs ABDOMEN: Soft, nontender. No hepatosplenomegaly, normal bowel sounds, no guarding or rigidity. EXTREMITIES: No clubbing, no edema, no cyanosis, 2+ pulses and upper and lower extremities. MUSCULOSKELETAL: Muscle strength and tone normal. SPINE: No scoliosis or deformity SKIN: No rashes CENTRAL NERVOUS SYSTEM: Alert and oriented -3. No focal deficits, tone is normal in all 4 extremities. PSYCHIATRIC: Alert and oriented -3. Appropriate affect. Intact judgment and insight. - Labs CBC & Chem 7: 03/17/18 06:45 03/17/18 06:45 Labs: Abnormal Lab Results - Last 24 Hours (Table) 03/17/18 03/17/18 Range/Units 06:45 06:45 WBC 12.5 H (3.8-10.6) k/uL Plt Count 118 L (150-450) k/uL Carbon Dioxide 34 H (22-30) mmol/L BUN 20 H (7-17) mg/dL Glucose 165 H (74-99) mg/dL Microbiology - Last 24 Hours (Table) 03/13/18 13:37 Gram Stain - Final Bronchoalviolar Lavage - Right Bronchial Washings Culture - Final Assessment and Plan Plan: Assessment: #1. Acute exacerbation of chronic bronchial asthma, acute by purulent tracheobronchitis and possible bronchopneumonia in the right lower lobe. #2. Acute tracheobronchitis, and tracheobronchomalacia #3. Gastroesophageal reflux disease #4. Sleep apnea syndrome #5. Morbid obesity #6. Hypothyroidism #7. Degenerative joint disease #8. Vitamin D deficiency #9. History of viral cardiomyopathy #10. Respiratory syncytial virus positive in the bronchial lavage Plan: Increase activity as tolerated, patient has completed her oral course of antibiotics, we'll switch the IV steroids to oral prednisone today, continue with nebulized bronchodilators. If she continues to improve may consider discharge home in 24-48 hours I performed a history & physical examination of the patient and discussed their management with my nurse practitioner, Amanda Stover. I reviewed the nurse practitioner's note and agree with the documented findings and plan of care. Lung sounds are positive for minimal wheezing. The findings and the impression was discussed with the patient. I attest to the documentation by the nurse practitioner. Time with Patient: Less than 30
--- NOTE | 2018-03-17 11:42 | P.PN ---
Subjective Progress Note Date: 03/17/18 The patient is a 52 yo F with a PMH of asthma and viral myocarditis presented to the ED w/ cough, SOB, wheezing, and sinus congestion. The patient was noted to have a RLL infiltrate, WBC count 14.5, and hypoxic in the ED. She was admitted to the medicine service for acute asthma exacerbation and sepsis from community acquired pnuemonia. The patient was started on abxs, IV steroids and bronchodilators though had only minimal relief with several days of therapy. Pulmonary medicine was consulted and recommended a bronchoscopy with BAL. She underwent the procedure which revealed large mucous plus that were suctioned out with airways noted to be inflamed and friable. The patient's viral serology testing was positive for RSV. The IV steroids were switched to PO as the patient gradually improved. Pulmonary recommended that the patient may be discharged home w/ oxygen as complete resolution of her symptoms could take several weeks. The patient was seen and examined at the bedside. She notes minimal improvement in her dyspnea and cough since yesterday. She denied chest pain, fever, or chills. Also denied abdominal pain, nausea, vomiting, or diarrhea. Objective - Vital Signs Vital signs: Vital Signs Temp 98.2 F 03/17/18 04:26 Pulse 80 03/17/18 11:30 Resp 16 03/17/18 04:26 BP 148/79 03/17/18 04:26 Pulse Ox 94 L 03/17/18 04:26 Intake & Output 03/16/18 03/17/18 03/17/18 18:59 06:59 18:59 Intake Total 600 1320 Balance 600 1320 Intake: Oral 600 1320 Other: Voiding Method Toilet Toilet Toilet # Voids 2 3 # Bowel Movements 1 - Exam General: Non-toxic, in no acute distress, appears stated age, morbidly obese HEENT: NC/AT, anicteric sclerae, moist conjunctiva, no lid-lag, PERRLA Cardiovascular: S1/S2 wnl, no murmurs, rubs, or gallops Lungs: Somewhat improved air entry carolyn w/ minimal wheezing, normal respiratory effort, no accessory muscle use Abdominal: Soft, non-tender, non-distended, no guarding, rebound, or rigidity Skin: Warm, dry Extremities: Trace LE edema carolyn LEs Psychiatric: Alert and oriented to person, place and time, appropriate affect Neuro: CN II-XII grossly intact, Strength 5/5 in all 4 extremities, Speech intact, Sensation to light touch grossly intact throughout - Labs CBC & Chem 7: 03/17/18 06:45 03/17/18 06:45 Labs: Abnormal Lab Results - Last 24 Hours (Table) 03/17/18 03/17/18 Range/Units 06:45 06:45 WBC 12.5 H (3.8-10.6) k/uL Plt Count 118 L (150-450) k/uL Carbon Dioxide 34 H (22-30) mmol/L BUN 20 H (7-17) mg/dL Glucose 165 H (74-99) mg/dL Microbiology - Last 24 Hours (Table) 03/13/18 13:37 Gram Stain - Final Bronchoalviolar Lavage - Right Bronchial Washings Culture - Final Assessment and Plan Plan: Acute hypoxic respiratory failure in setting of acute asthma exacerbation w/ purulent tracheobronchitis and bronchopneumonia -Completed course of Augmentin -Switched to Prednisone today -DuoNebs, Formoterol inhal., singulair -Pulm recs appreciated. Will arrange for patient to be discharged on Home oxygen. Oral thrush -C/w Diflucan History of viral myocarditis -Echocardiogram from 12/2017 revealed preserved ejection fraction -Currently on 30 day event monitor for palpitations Headache -C/w home meds: Ultram DVT//GI prophylaxis -Lovenox -Protonix CODE STATUS: Full code Discussed with: Patient Anticipated discharge date: 03/18/[address]: Home A total of 30 minutes was spent on the care of this complex patient more than 50 % of the time was spent in counseling and care coordination.
[2018-03-17] MEDS: predniSONE 20 MG TAB PO SCH (11:56)
[2018-03-17] MEDS: NYSTATIN 100,000 UNIT/ML SUSP 500,000 UNIT/5 ML CUP PO SCH ×3 (11:56→21:24)
[2018-03-17] MEDS: PROMETHAZ-COD 6.25-10 MG/5 ML 5 ML CUP PO PRN ×2 (16:08→21:52)
[2018-03-17 21:31] VITALS: TEMP 98
[2018-03-18] MEDS: IPRATROPIUM-ALBUTEROL 3 ML NEB INHALATION SCH ×3 (03:33→11:27)
[2018-03-18 05:41] VITALS: BP 146/75; RESP 16
[2018-03-18] MEDS: FLUTICASONE 50MCG/SPRAY NASAL 16GM EA NOSTRIL SCH (07:48)
[2018-03-18] MEDS: guaiFENesin 600 MG TABLET.ER PO SCH (07:49)
[2018-03-18] MEDS: traMADol 50 MG TAB PO SCH (07:49)
[2018-03-18] MEDS: MONTELUKAST 10 MG TAB PO SCH (07:49)
[2018-03-18] MEDS: PANTOPRAZOLE 40 MG TABLET PO SCH (07:49)
[2018-03-18] MEDS: predniSONE 20 MG TAB PO SCH (07:49)
[2018-03-18] MEDS: FERROUS SULFATE 325 MG TAB PO SCH (07:50)
[2018-03-18] MEDS: DILTIAZEM CD 300 MG CAP.ER.24H PO SCH (07:50)
[2018-03-18] MEDS: NYSTATIN 100,000 UNIT/ML SUSP 500,000 UNIT/5 ML CUP PO SCH ×2 (07:50→11:55)
[2018-03-18] MEDS: FLUCONAZOLE 100 MG TAB PO SCH (07:50)
[2018-03-18] MEDS: VENLAFAXINE HCL ER 37.5 MG CAP PO SCH (07:51)
[2018-03-18] MEDS: POLYETHYLENE GLYCOL 3350 17 GM POWD.PACK PO SCH (07:51)
[2018-03-18] MEDS: BENZONATATE 100 MG CAP PO SCH (07:51)
[2018-03-18 07:56] LABS: HGB 12.3 gm/dL (11.4-16.0); MCH 29.2 pg (25.0-35.0); MCHC 32.3 g/dL (31.0-37.0); MCV 90.5 fL (80.0-100.0); Mean Platelet Volume 7.2; Platelet Count 104 k/uL (150-450); RBC 4.19 m/uL (3.80-5.40); RDW 14.9 % (11.5-15.5); WBC 12.2 k/uL (3.8-10.6)
[2018-03-18] MEDS: PROMETHAZ-COD 6.25-10 MG/5 ML 5 ML CUP PO PRN (07:57)
[2018-03-18] MEDS: FORMOTEROL FUMARATE 20 MCG/2 ML NEBU INHALATION SCH (08:20)
[2018-03-18] MEDS: BUDESONIDE 1 MG/2 ML NEBU INHALATION SCH (08:20)
--- NOTE | 2018-03-18 10:25 | P.DS ---
Providers Date of admission: 03/04/18 23:28 Expected date of discharge: 03/18/18 Attending physician: Irasema Victor MD Consults: 03/05/18 11:31 Consult Physician Routine Consulting Provider: Robert Quiñones Consult Reason/Comments: Asthma exacerbation Do you want consulting provider notified?: Yes Primary care physician: Radha Mcmillan MD - Discharge Diagnosis(es) (1) Acute respiratory failure with hypoxia Current Visit: Yes Status: Resolved (2) Sepsis Current Visit: Yes Status: Acute (3) Asthma with exacerbation Current Visit: Yes Status: Acute (4) Pneumonia Current Visit: Yes Status: Acute (5) RSV/bronchiolitis Current Visit: Yes Status: Acute (6) Tachycardia Current Visit: No Status: Chronic (7) Headache Current Visit: Yes Status: Acute (8) Constipation Current Visit: Yes Status: Acute Hospital Course: The patient is a 52 yo F with a PMH of asthma and viral myocarditis presented to the ED w/ cough, SOB, wheezing, and sinus congestion. The patient was noted to have a RLL infiltrate, WBC count 14.5, and hypoxic in the ED. She was admitted to the medicine service for acute asthma exacerbation and sepsis from community acquired pnuemonia. The patient was started on abxs, IV steroids and bronchodilators though had only minimal relief with several days of therapy. Pulmonary medicine was consulted and recommended a bronchoscopy with BAL. She underwent the procedure which revealed large mucous plus that were suctioned out with airways noted to be inflamed and friable. The patient's viral serology testing was positive for RSV. The IV steroids were switched to PO as the patient gradually improved. Pulmonary recommended that the patient may be discharged home w/ oxygen as complete resolution of her symptoms could take several weeks. The patient did qualify for oxygen After home oxygen evaluation was done she desatted to 86% on room air while at rest. Prescription for prednisone taper, home oxygen 3L liters via nasal cannula, julianneo nebzack. This discharge process took approximately 35 minutes. Focused exam Respiratory: Coarse sounding lungs diminished in the bases but improved aeration with faint wheezes, no respiratory distress on 3 L nasal cannula Patient Condition at Discharge: Fair Plan - Discharge Summary Discharge Rx Participant: No New Discharge Prescriptions: New Budesonide/Formoterol Fumarate [Symbicort 160-4.5 Mcg Inhaler] 2 puff INHALATION BID #1 inhaler guaiFENesin [Mucinex] 1,200 mg PO Q12HR #30 tablet.er Ipratropium-Albuterol Nebulize [Duoneb 0.5 mg-3 mg/3 ml Soln] 3 ml INHALATION RT-Q4H #30 ampul.neb predniSONE 40 mg PO DAILY tab Ipratropium-Albuterol Nebulize [Duoneb 0.5 mg-3 mg/3 ml Soln] 3 ml INHALATION QID 30 Days #5 box Nystatin 100,000 Unit/ml Susp [Mycostatin Oral Susp] 5 ml PO QID 5 Days #100 ml Promethaz-Cod 6.25-10 mg/5 ml [Phenergan with Codeine] 5 ml PO Q4HR PRN 3 Days #90 ml PRN Reason: Cough Continue Cholecalciferol [Vitamin D3] 5,000 unit PO DAILY Levalbuterol Tartrate [Xopenex Hfa Inhaler] 2 puff INHALATION RT-QID PRN PRN Reason: Shortness Of Breath Montelukast [Singulair] 10 mg PO DAILY Ferrous Sulfate [Iron (65 MG Elemental)] 65 mg PO BID Diltiazem HCl [Cartia Xt] 300 mg PO DAILY Venlafaxine HCl ER [Effexor XR] 37.5 mg PO DAILY Multivitamins, Thera [Multivitamin (formulary)] 1 tab PO DAILY L.acidoph,Paracasei, B.lactis [Probiotic] 1 cap PO DAILY Fluticasone Propionate [Flovent Hfa 220 mcg] 3 puff INHALATION RT-BID Omeprazole 40 mg PO DAILY Vitamin B Complex 1 each PO DAILY Fluticasone Nasal Spivey [Flonase Nasal Spivey] 1 spray EA NOSTRIL DAILY Benzonatate [Tessalon Perles] 100 mg PO TID Discontinued Albuterol Nebulized [Ventolin Nebulized] 2.5 mg INHALATION RT-Q4H PRN PRN Reason: Wheezing Cefdinir [Omnicef] 300 mg PO BID Discharge Medication List Cholecalciferol [Vitamin D3] 5,000 unit PO DAILY 04/16/17 [History] Levalbuterol Tartrate [Xopenex Hfa Inhaler] 2 puff INHALATION RT-QID PRN [History] Montelukast [Singulair] 10 mg PO DAILY 04/16/17 [History] Diltiazem HCl [Cartia Xt] 300 mg PO DAILY 10/31/17 [History] Ferrous Sulfate [Iron (65 MG Elemental)] 65 mg PO BID 10/31/17 [History] L.acidoph,Paracasei, B.lactis [Probiotic] 1 cap PO DAILY 01/10/18 [History] Multivitamins, Thera [Multivitamin (formulary)] 1 tab PO DAILY 01/10/18 [History ] Venlafaxine HCl ER [Effexor XR] 37.5 mg PO DAILY 01/10/18 [History] Fluticasone Propionate [Flovent Hfa 220 mcg] 3 puff INHALATION RT-BID 02/15/18 [ History] Omeprazole 40 mg PO DAILY 02/15/18 [History] Vitamin B Complex 1 each PO DAILY 02/15/18 [History] Benzonatate [Tessalon Perles] 100 mg PO TID 03/04/18 [History] Fluticasone Nasal Spivey [Flonase Nasal Spivey] 1 spray EA NOSTRIL DAILY 03/04/18 [History] Budesonide/Formoterol Fumarate [Symbicort 160-4.5 Mcg Inhaler] 2 puff INHALATION BID #1 inhaler 03/18/18 [Rx] Ipratropium-Albuterol Nebulize [Duoneb 0.5 mg-3 mg/3 ml Soln] 3 ml INHALATION QID 30 Days #5 box 03/18/18 [Rx] Ipratropium-Albuterol Nebulize [Duoneb 0.5 mg-3 mg/3 ml Soln] 3 ml INHALATION RT -Q4H #30 ampul.neb 03/18/18 [Rx] Nystatin 100,000 Unit/ml Susp [Mycostatin Oral Susp] 5 ml PO QID 5 Days #100 ml 03/18/18 [Rx] Promethaz-Cod 6.25-10 mg/5 ml [Phenergan with Codeine] 5 ml PO Q4HR PRN 3 Days # 90 ml 03/18/18 [Rx] guaiFENesin [Mucinex] 1,200 mg PO Q12HR #30 tablet.er 03/18/18 [Rx] predniSONE 40 mg PO DAILY tab 03/18/18 [Rx] Follow up Appointment(s)/Referral(s): Radha Mcmillan MD [Primary Care Provider] - 03/27/18 12:20 pm Robert Quiñones DO [Doctor of Osteopathic Medicine] - 03/21/18 2:30 pm Patient Instructions/Handouts: Guaifenesin (By mouth), Ipratropium/Albuterol ( By breathing), Promethazine/Codeine (By mouth), Budesonide/Formoterol (By breathing), Asthma (DC), Hypoxia (GEN), Pneumonia (DC) Discharge Disposition: HOME SELF-CARE
[2018-03-18 11:30] VITALS: PULSE 100
[2018-03-18] MEDS: MULTIVITAMINS, THERA 1 EACH TAB PO SCH (11:55)
[2018-03-18] MEDS: CHOLECALCIFEROL 1,000 UNIT TAB PO SCH (11:55)
--- NOTE | 2018-03-18 14:08 | P.PN ---
Subjective Progress Note Date: 03/18/18 Principal diagnosis: Severe asthma exacerbation This is a 52-year-old white female patient with past medical history of chronic bronchial asthma, GERD, obstructive sleep apnea, morbid obesity, hypothyroidism, vitamin D deficiency, history of viral cardiomyopathy, and DJD, who was admitted to the hospital on 03/04/2018 with difficulty breathing, wheezing, chest tightness, phlegm production. Today on 03/10/2018 worsening this patient in follow-up on medical surgical floor. She is improving, still bronchospastic. Today's chest x-ray showed improvement in the appearance of right lower lobe infiltrate. Patient has been ambulating, she is on 2 L per nasal cannula, does desat on room air. Afebrile, sputum cultures with Neelima albicans, blood cultures are negative. On 03/12/2017 patient seen in follow-up on medical surgical floor. Still having persistent coughing episodes, and wheezing, still short of breath, currently on 2 L per nasal cannula her pulse ox is 94%, afebrile, hemodynamically stable. Blood culture was negative, sputum culture showed Neelima albicans, yesterday we added Diflucan, patient is on Augmentin, nebulized treatments in addition to Pulmicort and Perforomist and Mucinex. Patient has Tessalon Perles for coughing spells, and she states she has not really been effective. Has been slow to improve, we will schedule him for bronchoscopy with BAL for tomorrow. On 03/13/2017 patient seen in follow-up on medical surgical floor, still quite bronchospastic, dyspneic, and coughing, underwent bronchoscopy with BAL with Dr. Johnson today, and large mucous plugs were suctioned out of the left lung, airways were noted to be extremely inflamed, friable. Patient tolerated the procedure well, tenacious thick fluids were. Patient is on 3 L per nasal cannula with pulse ox of 95%, afebrile, hemodynamically stable. Patient was returned to her room after the procedure in stable condition. Today's labs were noted, WBCs 11.1, hemoglobin is 12.5, electrolytes and renal profile were unremarkable today. Patient continues on IV steroids, nebulized bronchodilators , cough syrup, Diflucan. On 03/15/2018 patient seen in follow-up on medical surgical fimproving, but states that last night she did have some shortness of breath, still feels some physical exam with minimal wheezing, lung sounds are diminished, though has some coughing, but the cough has subsided, patient will increase activity today, will be ambulated on portable oxygen,sputum cultures is positive for Neelima albicans, BAL culture howed no growth so far. Patient is complaining oral course of Augmentin On 03/17/2018 patient seen in follow-up on medical surgical floor. Awake and alert, in no acute distress, still has some coughing, lung sounds are diminished with end-expiratory wheezing. Patient states she is dyspneic with exertion, and she is having to sit up in bed to be able to sleep at night. No fever or chills, patient's serology did reveal respiratory syncytial virus. Bronchial wash cultures were negative. Today's labs have been reviewed, to PVCs 12.5, hemoglobin is 12.4, sodium is 142, potassium is 4.1, CO2 is 34, B1 is 20 and creatinine 0.60. Overall patient is improving. She has been up ambulating, she remains on 2 L per nasal cannula a pulse ox of 94%. Patient has completed oral course of Augmentin. On 03/18/2018 patient seen in follow-up on medical surgical floor. He sitting up in the chair, in no acute distress, and 3 L per nasal cannula, with a pulse ox of 92%, no fever or chills he has completed all oral course of Augmentin, bronchial wash cultures were positive for RSV. Patient has been treated with IV steroids, she is improving, much has bronchospastic, she does have a no BMP was done frequent nagging cough every time she tries to take a deep breath. She is on Tessalon Perles, and promethazine cough syrup. Oral thrush is improving, patient is on admission of oral Diflucan and nystatin. She does qualify for home oxygen, her pulse ox on room air was 84% with ambulation. Today 's labs have been noted, white count was 12.2, hemoglobin is 12.3 no bmp Objective - Vital Signs Vital signs: Vital Signs Temp 98.0 F 03/18/18 05:00 Pulse 100 03/18/18 11:36 Resp 16 03/18/18 05:00 BP 146/75 03/18/18 05:00 Pulse Ox 86 L 03/18/18 10:05 Intake & Output 03/17/18 03/18/18 03/18/18 18:59 06:59 18:59 Intake Total 600 720 240 Balance 600 720 240 Weight 102.058 kg Intake: Oral 600 720 240 Other: Voiding Method Toilet Toilet # Voids 3 2 # Bowel Movements 1 - Exam GENERAL EXAM: Alert, pleasant 52-year-old white female, on 2 l/min per nasal cannula comfortable in no apparent distress. HEAD: Normocephalic/atraumatic. EYES: Normal reaction of pupils, equal size. Conjunctiva pink, sclera white. NOSE: Clear with pink turbinates. THROAT: No erythema or exudates. NECK: No masses, no JVD, no thyroid enlargement, no adenopathy. CHEST: No chest wall deformity. Symmetrical expansion. LUNGS: Equal air entry with diminished breath sounds, with minimal wheezing, still has residual cough CVS: Regular rate and rhythm, normal S1 and S2, no gallops, no murmurs, no rubs ABDOMEN: Soft, nontender. No hepatosplenomegaly, normal bowel sounds, no guarding or rigidity. EXTREMITIES: No clubbing, no edema, no cyanosis, 2+ pulses and upper and lower extremities. MUSCULOSKELETAL: Muscle strength and tone normal. SPINE: No scoliosis or deformity SKIN: No rashes CENTRAL NERVOUS SYSTEM: Alert and oriented -3. No focal deficits, tone is normal in all 4 extremities. PSYCHIATRIC: Alert and oriented -3. Appropriate affect. Intact judgment and insight. - Labs CBC & Chem 7: 03/18/18 06:33 03/17/18 06:45 Labs: Abnormal Lab Results - Last 24 Hours (Table) 03/18/18 Range/Units 06:33 WBC 12.2 H (3.8-10.6) k/uL Plt Count 104 L (150-450) k/uL Microbiology - Last 24 Hours (Table) 03/13/18 13:37 Fungal Culture - Preliminary Bronchoalviolar Lavage - Right Yeast species Assessment and Plan Plan: Assessment: #1. Acute exacerbation of chronic bronchial asthma, acute by purulent tracheobronchitis and possible bronchopneumonia in the right lower lobe. #2. Acute tracheobronchitis, and tracheobronchomalacia #3. Gastroesophageal reflux disease #4. Sleep apnea syndrome #5. Morbid obesity #6. Hypothyroidism #7. Degenerative joint disease #8. Vitamin D deficiency #9. History of viral cardiomyopathy #10. Respiratory syncytial virus positive in the bronchial lavage Plan: We'll transition the IV steroids to oral prednisone, continue nebulized bronchodilators, patient is stable for discharge home from pulmonary perspective with home oxygen she does qualify as she desaturated to 84% on room air with ambulation. Some residual coughing, but overall less bronchospastic, no fever or chills, vitals are stable. She will need follow-up in the clinic with Dr. Quiñones by the end of this week. She completed a course of oral antibiotics, she can be discharged home on prednisone taper, we'll send a prescription for DuoNeb nebulized treatments, promethazine cough syrup, Symbicort. I performed a history & physical examination of the patient and discussed their management with my nurse practitioner, Amanda Stover. I reviewed the nurse practitioner's note and agree with the documented findings and plan of care. Lung sounds are positive breath sounds, with some coughing The findings and the impression was discussed with the patient. I attest to the documentation by the nurse practitioner. Time with Patient: Less than 30
== END 2018-03-18 14:35 | disposition home or self-care (01) | DRG 871 ==
LOC: EC 20:03 → 4SSUR 23:28 → 3NMEDONC 03-05 13:17
PROVIDERS: ADMIT Internal Medicine; ATTEND Internal Medicine
PROC: 0B9G8ZX Drainage of Left Upper Lung Lobe, Via Natural or Artificial Opening Endoscopic, Diagnostic (ICD-10-PCS; principal; 2018-03-13 11:30)
DX: A41.9 Sepsis, unspecified organism (principal); J18.9 Pneumonia, unspecified organism; J96.01 Acute respiratory failure with hypoxia; B37.0 Candidal stomatitis; B37.89 Other sites of candidiasis; J21.9 Acute bronchiolitis, unspecified; T17.590A Other foreign object in bronchus causing asphyxiation, initial encounter; T17.890A Other foreign object in other parts of respiratory tract causing asphyxiation, initial encounter; J45.51 Severe persistent asthma with (acute) exacerbation; Z68.41 Body mass index [BMI] 40.0-44.9, adult; B97.4 Respiratory syncytial virus as the cause of diseases classified elsewhere; D69.6 Thrombocytopenia, unspecified; E03.9 Hypothyroidism, unspecified; E55.9 Vitamin D deficiency, unspecified; E66.01 Morbid (severe) obesity due to excess calories; F32.9 Major depressive disorder, single episode, unspecified; F41.9 Anxiety disorder, unspecified; G47.33 Obstructive sleep apnea (adult) (pediatric); J01.90 Acute sinusitis, unspecified; J98.09 Other diseases of bronchus, not elsewhere classified; K21.9 Gastro-esophageal reflux disease without esophagitis; K59.00 Constipation, unspecified; M19.90 Unspecified osteoarthritis, unspecified site; G43.909 Migraine, unspecified, not intractable, without status migrainosus; Z79.51 Long term (current) use of inhaled steroids; Z79.899 Other long term (current) drug therapy; Z88.1 Allergy status to other antibiotic agents; Z88.5 Allergy status to narcotic agent; Z91.013 Allergy to seafood; Z91.018 Allergy to other foods; Z98.1 Arthrodesis status; Z90.721 Acquired absence of ovaries, unilateral; Z90.710 Acquired absence of both cervix and uterus; Z90.49 Acquired absence of other specified parts of digestive tract; Z98.84 Bariatric surgery status; Z80.49 Family history of malignant neoplasm of other genital organs; Z82.49 Family history of ischemic heart disease and other diseases of the circulatory system; Z82.62 Family history of osteoporosis; Z83.3 Family history of diabetes mellitus; Z84.1 Family history of disorders of kidney and ureter
CPT/HCPCS: 31624; 36415; 71046; 80048; 80053; 81003; 83735; 84484; 85025; 85027; 85610; 85730; 87040; 87070; 87102; 87205; 87252; 87496; 87498; 87502; 87529; 87634; 87798; 88108; 88305; 93005; 94640; 94760; 96365; 96366; 96367; 96372; 96375; 96376; 99285

== ENCOUNTER 2018-03-23 11:44 | Inpatient (IN) | payer OTHER ==
[2018-03-23] MEDS ORDERED: SODIUM CHLORIDE 0.9% 1,000 ML BAG ONE (13:10)
[2018-03-23] MEDS ORDERED: IPRATROPIUM-ALBUTEROL 3 ML NEB ONE ×3 (13:10)
[2018-03-23] MEDS ORDERED: methylPREDNISolone SOD SUCCI 125 MG/2 ML VIAL ONE (13:10)
--- NOTE | 2018-03-23 14:13 | XR ---
EXAMINATION TYPE: XR chest 2V DATE OF EXAM: 03/23/2018 COMPARISON: 03/10/2018 HISTORY: 52-year-old female shortness of breath, pain TECHNIQUE: PA and lateral views FINDINGS: Heart upper limits of normal in size. Large patient body habitus. Aorta and pulmonary vasculature wit hin normal limits. No consolidation or pleural effusion seen. IMPRESSION: No acute cardiopulmonary process.
--- NOTE | 2018-03-23 18:46 | HP ---
HISTORY AND PHYSICAL DATE OF ADMISSION: 03/23/2018 CHIEF COMPLAINT: Shortness of breath, wheezing, asthma exacerbation. HPI: The patient is a pleasant 52-year-old female with a past medical history of asthma who was recently hospitalized and discharged this past Sunday with acute asthma exacerbation, acute respiratory failure with hypoxia secondary to pneumonia and RSV bronchiolitis. During that hospitalization, the patient was treated with a round of steroids and was discharged home on a prednisone taper and 3 L of oxygen via nasal cannula, and instructed to follow up with Pulmonology. Apparently since her discharge, the patient has had no significant improvement. She has been using her breathing treatments, updrafts as scheduled every 4 hours. The patient reported that she saw Edda Christensen in clinic. At that time, she was apparently doing better. In the last day since yesterday, the patient has been having increasing chest congestion with productive cough with yellow orange sputum. The patient's home health nurse listened to her today and determined that her breathing was worse as she was not moving air sufficiently that her chest sounded more tight with worsening wheezes. The patient apparently called Dr. Reid's office and was instructed to come into the ER. On arrival, the patient was noted to be in mild respiratory distress. There was reports of pursed lip breathing, saturations on 3 L seemed appropriate at 91%. In the ER, the patient had a comprehensive workup. She was started on systemic steroids with Solu-Medrol and given 2 breathing treatments. Chest x-ray done on admission was negative for any suggestion of pneumonia. The patient was noted to have a mild leukocytosis. ALLERGIES: CIPRO causes itching, DILAUDID causes vomiting, NORCO and NSAIDs. CURRENT MEDICATIONS: 1. Tessalon Perles. 2. DuoNeb. 3. Ferrous sulfate. 4. Fluconazole. 5. Singulair. 6. Flonase. 7. Mucinex. 8. Omeprazole. 9. Multivitamin. 10.Prednisone. 11.Symbicort. 12. . 13.Vitamin D3. 14.Vitamin D. 15.Xopenex. PAST MEDICAL HISTORY: Obesity, asthma, acute respiratory failure, tachycardia, GERD, iron deficiency anemia, depression and anxiety. PAST SURGICAL HISTORY: The patient denies any previous surgical interventions. FAMILY HISTORY: Significant for father with diabetes, chronic kidney disease and from complications of non-Hodgkin's lymphoma. Mother with diabetes, heart failure, anduterine cancer. SOCIAL HISTORY: Patient denies any history of smoking and denies any illicit drug use. Denies any significant alcohol consumption. REVIEW OF SYSTEMS: Pertinent positives per HPI. All other review of systems otherwise negative. PHYSICAL EXAMINATION: VITAL SIGNS: Blood pressure 158/93, heart rate 93, respiratory rate 20, temperature afebrile 98.4, pulse oximetry 91% on 3 L nasal cannula. In general, no acute distress. Awake, alert, oriented x3 and appears comfortable. HEENT: Normocephalic, atraumatic. Extraocular muscles intact. Pupils equal, round to light and accommodation. NECK: Supple with no lymphadenopathy or JVD. CHEST: Diminished in the bases, poor aeration, expiratory wheezes, appears unlabored. On 3 L nasal cannula, saturating at 94%. CARDIAC: Regular rate and rhythm. No murmurs, rubs, or gallops. ABDOMEN: Soft, nontender. Normoactive bowel sounds in all 4 quadrants. Nonacute abdomen. EXTREMITIES: +2 dorsal pedis, posterior tibial pulses bilaterally. No clubbing, cyanosis, or edema. NEURO: Cranial nerves 2 through 12 grossly intact. No focal deficits appreciated. ASSESSMENT: 1. Acute respiratory failure with hypoxia. 2. Acute asthma exacerbation with tracheobronchitis. 3. History of pneumonia. 4. History of RSV bronchiolitis. 5. Tachycardia. 6. Iron deficiency anemia. 7. Gastroesophageal reflux disease. PLAN: The patient is admitted to the medical floor anticipate a greater than 2 midnight stay with acute asthma exacerbation, acute respiratory failure with hypoxia, history of RSV bronchiolitis and pneumonia. The patient is initiated on systemic steroids with Solu- Medrol 125 mg IV b.i.d. was scheduled and p.r.n. albuterol, Atrovent, DuoNeb breathing treatments q.4, Perforomist, Symbicort with plans for pulmonary consultation with Dr. Reid. Initial chest x-ray did not show any signs of pneumonia. Will, however , get a CT of her chest. Will continue her home medications and place her on SCDs for DVT prophylaxis and continue to follow her clinical course. CODE STATUS: FULL CODE. Anticipated discharge 2 to 3 days. Discussed plan of care with the patient and her . MMODL / IJN: [id number] / [facility]
[2018-03-23 23:15] LABS: INR 0.9 (<1.2); Partial Thromboplastin Time 20.7 sec (22.0-30.0); Prothrombin Time 9.6 sec (9.0-12.0)
[2018-03-23] MEDS ORDERED: IPRATROPIUM-ALBUTEROL 3 ML NEB INHALATION PRN (23:30)
[2018-03-24] MEDS ORDERED: IPRATROPIUM-ALBUTEROL 3 ML NEB INHALATION SCH
[2018-03-24] MEDS ORDERED: IPRATROPIUM-ALBUTEROL 3 ML NEB INHALATION PRN (00:11)
[2018-03-24] MEDS: guaiFENesin 600 MG TABLET.ER PO SCH ×3 (01:02→20:44)
[2018-03-24] MEDS: methylPREDNISolone SOD SUCCI 125 MG/2 ML VIAL IV SCH ×5 (01:02→23:32)
[2018-03-24] MEDS: ACETAMINOPHEN TAB 325 MG TAB PO PRN ×3 (02:07→20:43)
[2018-03-24] MEDS: BENZONATATE 100 MG CAP PO SCH ×4 (02:07→20:44)
[2018-03-24 02:24] LABS: Creatine Kinase 50 U/L (30-135); Creatine Kinase MB 0.3 ng/mL (0.0-2.4); Troponin I <0.012 ng/mL (0.000-0.034)
[2018-03-24] MEDS: IPRATROPIUM-ALBUTEROL 3 ML NEB INHALATION SCH ×6 (02:32→23:14)
[2018-03-24 02:58] LABS: ALT 50 U/L (9-52); AST 21 U/L (14-36); Albumin 4.2 g/dL (3.5-5.0); Alkaline Phosphatase 69 U/L (38-126); Anion Gap 7 mmol/L; Blood Urea Nitrogen 13 mg/dL (7-17); Calcium 9.2 mg/dL (8.4-10.2); Carbon Dioxide 28 mmol/L (22-30); Chloride 104 mmol/L (98-107); Glucose 143 mg/dL (74-99); Potassium 4.5 mmol/L (3.5-5.1); Sodium 139 mmol/L (137-145); Total Bilirubin 0.9 mg/dL (0.2-1.3); Total Protein 6.7 g/dL (6.3-8.2)
[2018-03-24] MEDS: FORMOTEROL FUMARATE 20 MCG/2 ML NEBU INHALATION SCH ×2 (07:04→19:30)
[2018-03-24] MEDS ORDERED: SYMBICORT 160-4.5 MCG INHALER INHALATION SCH (08:00)
[2018-03-24] MEDS: VENLAFAXINE HCL ER 37.5 MG CAP PO SCH (08:10)
[2018-03-24] MEDS: MONTELUKAST 10 MG TAB PO SCH (08:11)
[2018-03-24 08:32] LABS: Basophils % (A) 0 %; Eosinophils % (A) 0 %; HCT 42.6 % (34.0-46.0); HGB 13.9 gm/dL (11.4-16.0); Lymphocytes # (A) 0.4 k/uL (1.0-4.8); Lymphocytes % (A) 3 %; MCH 29.4 pg (25.0-35.0); MCHC 32.5 g/dL (31.0-37.0); MCV 90.4 fL (80.0-100.0); Mean Platelet Volume 7.5; Monocytes # (A) 0.2 k/uL (0-1.0); Monocytes % (A) 2 %; Neutrophils # (A) 11.7 k/uL (1.3-7.7); Neutrophils % (A) 94 %; RBC 4.71 m/uL (3.80-5.40); RDW 15.3 % (11.5-15.5); WBC 12.4 k/uL (3.8-10.6)
[2018-03-24 08:33] LABS: Platelet Count 100 k/uL (150-450)
[2018-03-24] MEDS ORDERED: FERROUS SULFATE 325 MG TAB PO SCH (09:00)
--- NOTE | 2018-03-24 10:27 | P.PN ---
Subjective Progress Note Date: 03/24/18 Patient sitting up in bed having breakfast, so complain of shortness of breath, and chest congestion And productive cough. Afebrile overnigh, no acute events Objective - Vital Signs Vital signs: Vital Signs Temp 97.7 F 03/23/18 23:13 Pulse 102 H 03/24/18 07:27 Resp 16 03/23/18 23:13 BP 139/80 03/23/18 23:13 Pulse Ox 96 03/23/18 23:13 Intake & Output 03/23/18 03/24/18 03/24/18 18:59 06:59 18:59 Weight 101.437 kg Other: # Voids 1 - Exam Constitutional: No acute distress, conversant, pleasant Eyes: Anicteric sclerae, moist conjunctiva, no lid-lag, PERRLA ENMT: NC/AT,Oropharynx clear, no erythema, exudates Neck:Supple, FROM, no masses, or JVD, No carotid bruits; No thyromegaly Lungs: Diminished in the bases, poor aeration, expiratory wheezes diffusely Cardiovascular: Heart regular in rate and rhythm, No murmurs, gallops, or rubs no peripheral edema Abdominal: Soft Nontender, nom distended, no guarding, no rebound or rigidity, Normoactive bowel sounds No hepatomegaly, No splenomegaly, No palpable mass No abdominal wall hernia noted Skin: Normal temperature, tone, texture, turgor, No induration No subcutaneous nodules, No rash, lesions, No ulcers Extremities:No digital cyanosis No clubbing, Pedal pulses intact and symmetrical Radial pulses intact and symmetrical Normal gait and station, No calf tenderness Psychiatric: Alert and oriented to person, place and time, Appropriate affect Intact judgement Neuro: Muscles Strength 5/5 in all 4 extremities, Sensation to light touch grossly present throughout, Cranial nerves II-XII grossly intact. No focal sensory deficits - Labs CBC & Chem 7: 03/23/18 12:12 03/23/18 12:12 Labs: Abnormal Lab Results - Last 24 Hours (Table) 03/23/18 03/23/18 03/23/18 Range/Units 12:12 12:12 12:12 WBC 12.4 H (3.8-10.6) k/uL Plt Count 100 L (150-450) k/uL Neutrophils # 11.7 H (1.3-7.7) k/uL Lymphocytes # 0.4 L (1.0-4.8) k/uL APTT 20.7 L (22.0-30.0) sec Glucose 143 H (74-99) mg/dL Assessment and Plan (1) Acute respiratory failure with hypoxia Narrative/Plan: * Secondary to asthma exacerbation triggered by pneumonia and RSV * Continue supplemental oxygen at 3 L via nasal cannula * Plans a consult pulmonary Dr. Reid for further recommendations patient may need a repeat bronchoscopy * CT of her chest without contrast ordered Current Visit: No Status: Resolved Code(s): J96.01 - ACUTE RESPIRATORY FAILURE WITH HYPOXIA SNOMED Code(s): 37426121 (2) Asthma with exacerbation Narrative/Plan: * continue with current treatment * Continue Solu-Medrol, Symbicort, Perforomist, Mucinex with scheduled and when necessary DuoNeb bronchodilator treatments Current Visit: No Status: Acute Code(s): J45.901 - UNSPECIFIED ASTHMA WITH ( ACUTE) EXACERBATION SNOMED Code(s): 979818060 (3) Pneumonia Narrative/Plan: * History of pneumonia in her previous hospitalization * Previously treated Current Visit: No Status: Acute Code(s): J18.9 - PNEUMONIA, UNSPECIFIED ORGANISM SNOMED Code(s): 844578290 (4) RSV/bronchiolitis Current Visit: No Status: Acute Code(s): J21.0 - ACUTE BRONCHIOLITIS DUE TO RESPIRATORY SYNCYTIAL VIRUS SNOMED Code(s): 74558202 (5) Tachycardia Narrative/Plan: * Patient resumed on Cardizem Current Visit: No Status: Chronic Code(s): R00.0 - TACHYCARDIA, UNSPECIFIED SNOMED Code(s): 6193498 Plan: * Anticipated discharge 2 to 3 days
[2018-03-24] MEDS: DILTIAZEM CD 300 MG CAP.ER.24H PO SCH (11:27)
--- NOTE | 2018-03-24 12:17 | P.CNPUL ---
History of Present Illness Consult date: 03/24/18 Requesting physician: Russell Vargas Reason for consult: dyspnea, cough (Dyspnea, cough) Chief complaint: Dyspnea, cough History of present illness: This is a 52-year-old white female patient with medical history of severe persistent crying bronchial asthma, GERD, obstructive sleep apnea on CPAP therapy, morbid obesity, hypothyroidism, vitamin D deficiency, history of viral cardiomyopathy, DJD, there was recently hospitalized for acute exacerbation of chronic bronchial asthma, purulent tracheobronchitis, bronchopneumonia in the right lower lobe. required a bronchoscopy with bronchoalveolar lavage, and respiratory syncytial virus was positive in the bronchial lavage. Cytology was negative. Patient had a extended hospitalization, she finally started to show some improvement, patient was discharged home on 03/18/2018 she had been seen in follow-up at the pulmonary clinic by Dr. Christensen on 03/21/2018. She was still not back to her baseline, she was completing her prednisone taper, was sent home with nebulized treatments, overall she was improving. Patient came back to the hospital on 03/23/2018 with complaints of worsening shortness of breath, wheezing, chest congestion with production of yellow orange sputum. Chest x-ray completed on admission was negative for any acute cardiopulmonary process. Initial blood work showed white count of 12.4, hemoglobin of 13.9, actually lites and renal profile were within normal limits, troponin was negative 1, patient has been afebrile, patient was discharged home on home oxygen and she remains on 3 L per nasal cannula, bronchial wash cultures were reviewed from previous bronchoscopy on 08/11/2018 and showed only Neelima albicans. Patient was started on IV Solu-Medrol at 125 mg every 12 hours, nebulized bronchodilators, Pulmicort and Perforomist. Review of Systems All systems: negative Constitutional: Denies chills, Denies fever Eyes: denies blurred vision, denies pain Ears, nose, mouth and throat: Denies headache, Denies sore throat Cardiovascular: Denies chest pain, Denies shortness of breath Respiratory: Reports cough with sputum, Reports dyspnea, Reports respiratory infections, Denies cough Gastrointestinal: Denies abdominal pain, Denies diarrhea, Denies nausea, Denies vomiting Genitourinary: Denies dysuria, Denies hematuria Musculoskeletal: Denies myalgias Integumentary: Denies pruritus, Denies rash Neurological: Denies numbness, Denies weakness Psychiatric: Denies anxiety, Denies depression Endocrine: Denies fatigue, Denies weight change Past Medical History Past Medical History: Asthma, GERD/Reflux, Osteoarthritis (OA), Pneumonia, Sleep Apnea/CPAP/BIPAP, Thyroid Disorder Additional Past Medical History / Comment(s): Sinusiti, bronchospasms, past cardiomyopathy thought viral, occasional tachycardia especially when eats and with activity, ITZ with CPAP use, near syncope when she had the flu and with a dental procedure-checked fitbit and heart rate in 50s, thyroid nodules with neg bx. Spinal stenosis. Gluten sensitivity. Vitamin D deficiency, iron deficiency anemia, migraines,bruising more easily History of Any Multi-Drug Resistant Organisms: None Reported Past Surgical History: Appendectomy, Back Surgery, Bariatric Surgery, Section, Heart Catheterization, Hysterectomy, Orthopedic Surgery, Tonsillectomy Additional Past Surgical History / Comment(s): 2012 gastric sleeve, with hiatal hernia repair 11/2016 spinal fusion/decompression L4-L5 and S1, bilateral shoulder arthroscopies, 3 laparotomies d/t pain/ovarian cyst/adhesions, hysterectomy with R oophorectomy, 2 D&Cs after miscarriages, lipoma removed from left side of back, 2016 Cardiac cath-normal, colonoscopy, EGD's Past Anesthesia/Blood Transfusion Reactions: Motion Sickness, Postoperative Nausea & Vomiting (PONV) Additional Past Anesthesia/Blood Transfusion Reaction / Comment(s): difficult iv start Smoking Status: Never smoker - Past Family History Father Family Medical History: Cancer, Diabetes Mellitus, Renal Disease Additional Family Medical History / Comment(s): Father is from kidney failure d/t diabetes. He at the age of 68yrs. Mother Family Medical History: Cancer, Congestive Heart Failure (CHF), Coronary Artery Disease (CAD), Diabetes Mellitus, Myocardial Infarction (UT), Thyroid Disorder Additional Family Medical History / Comment(s): Mother has had multiple MIs with first one at about age 72 yrs. She has had CABG and has 5 cardiac stents. She is in remision from uterine cancer and has osteoporosis. She is 81 yrs old. Medications and Allergies Home Medications Medication Instructions Recorded Confirmed Type Levalbuterol Tartrate [Xopenex Hfa 2 puff INHALATION RT-QID PRN 04/16/17 History Inhaler] Montelukast [Singulair] 10 mg PO DAILY 04/16/17 03/23/18 History Diltiazem HCl [Cartia Xt] 300 mg PO DAILY 10/31/17 03/23/18 History Ferrous Sulfate [Iron (65 MG 65 mg PO BID 10/31/17 03/23/18 History Elemental)] Venlafaxine HCl ER [Effexor XR] 37.5 mg PO DAILY 01/10/18 03/23/18 History Vitamin B Complex 1 each PO DAILY 02/15/18 03/23/18 History Benzonatate [Tessalon Perles] 100 mg PO TID 03/04/18 03/23/18 History Fluticasone Nasal [place] [Flonase 1 spray EA NOSTRIL DAILY 03/04/18 03/23/18 History Nasal [place]] Budesonide/Formoterol Fumarate 2 puff INHALATION BID #1 inhaler 03/18/18 Rx [Symbicort 160-4.5 Mcg Inhaler] Promethaz-Cod 6.25-10 mg/5 ml 5 ml PO Q4HR PRN 3 Days #90 ml 03/18/18 03/23/18 Rx [Phenergan with Codeine] guaiFENesin [Mucinex] 1,200 mg PO Q12HR #30 tablet.er 03/18/18 03/23/18 Rx Ergocalciferol (Vitamin D2) 1 cap PO DIRECTED 03/23/18 03/23/18 History [Drisdol] Ipratropium-Albuterol Nebulize 3 ml INHALATION RT-Q4H 03/23/18 03/23/18 History [Duoneb 0.5 mg-3 mg/3 ml Soln] predniSONE See Taper PO DIRECTED 03/23/18 03/23/18 History Allergies Allergy/AdvReac Type Severity Reaction Status Date / Time ciprofloxacin Allergy Itching Verified 03/23/18 21:51 gluten AdvReac Nausea & Verified 03/23/18 21:51 Vomiting & Diarrhea hydromorphone [From Dilaudid] AdvReac Nausea & Verified 03/23/18 21:51 Vomiting NSAIDS (Non-Steroidal AdvReac Abdominal Verified 03/23/18 21:51 Anti-Inflamma Pain shellfish derived AdvReac Nausea & Verified 03/23/18 21:51 Vomiting Physical Exam Vitals: Vital Signs Temp Pulse Pulse Resp BP Pulse Ox 03/24/18 07:27 102 H 03/24/18 07:16 100 03/24/18 07:15 100 03/24/18 07:05 100 03/24/18 02:41 104 H 03/24/18 02:33 100 03/23/18 23:13 97.7 F 99 16 139/80 96 Intake and Output 03/23/18 03/24/18 03/24/18 22:59 06:59 14:59 Other: # Voids 1 Weight 101.437 kg GENERAL EXAM: Alert, pleasant, 52-year-old obese white female on 3 L per nasal cannula, and frequent episodes of coughing comfortable in no apparent distress. HEAD: Normocephalic/atraumatic. EYES: Normal reaction of pupils, equal size. Conjunctiva pink, sclera white. NOSE: Clear with pink turbinates. THROAT: No erythema or exudates. NECK: No masses, no JVD, no thyroid enlargement, no adenopathy. CHEST: No chest wall deformity. Symmetrical expansion. LUNGS: Equal air entry with diffuse wheezes, and diminished air entry bilaterally CVS: Regular rate and rhythm, normal S1 and S2, no gallops, no murmurs, no rubs ABDOMEN: Soft, nontender. No hepatosplenomegaly, normal bowel sounds, no guarding or rigidity. EXTREMITIES: No clubbing, no edema, no cyanosis, 2+ pulses and upper and lower extremities. MUSCULOSKELETAL: Muscle strength and tone normal. SPINE: No scoliosis or deformity SKIN: No rashes CENTRAL NERVOUS SYSTEM: Alert and oriented -3. No focal deficits, tone is normal in all 4 extremities. PSYCHIATRIC: Alert and oriented -3. Appropriate affect. Intact judgment and insight. Results - Laboratory Findings CBC and BMP: 03/23/18 12:12 03/23/18 13:12 PT/INR, D-dimer PT 9.6 sec (9.0-12.0) 03/23/18 12:12 INR 0.9 (<1.2) 03/23/18 12:12 Abnormal lab findings: Abnormal Labs 03/23/18 03/23/18 03/23/18 12:12 12:12 12:12 WBC 12.4 H Plt Count 100 L Neutrophils # 11.7 H Lymphocytes # 0.4 L APTT 20.7 L Glucose 143 H - Diagnostic Findings Chest x-ray: report reviewed, image reviewed CT scan - chest: report reviewed, image reviewed Assessment and Plan Plan: Assessment: #1. Acute exacerbation of severe persistent asthma, with purulent tracheobronchitis, chest x-ray and CT chest did not show any clear evidence of pneumonia. #2. Chronic hypoxemic respiratory failure related to recent episode of tracheobronchitis, RSV, and the possibility of right lower lobe bronchopneumonia #3. Recent extended hospitalization related to the above, the patient underwent bronchoscopy with BAL, cultures positive for Neelima albicans and respiratory syncytial virus #4. Acute tracheobronchitis, and tracheobronchomalacia #5. Gastroesophageal reflux disease #6. Sleep apnea syndrome, on CPAP therapy #7. Morbid obesity #8. Hypothyroidism #9. Degenerative joint disease #10. Vitamin D deficiency #11. History of viral cardiomyopathy Plan: Continue with IV steroids at 60 mg every 6 hours, nebulized bronchodilators, Pulmicort and Perforomist, chest x-ray and CT chest did not show any evidence of pneumonia, no acute cardiopulmonary process. Will add Zosyn. May have to consider the patient for repeat bronchoscopy with BAL if there is no significant improvement noted in her condition in the next couple of days. We' ll continue to follow I performed a history & physical examination of the patient and discussed their management with my nurse practitioner, Amanda Stover. I reviewed the nurse practitioner's note and agree with the documented findings and plan of care. Lung sounds are positive for diffuse wheezes throughout the lung luevano. The findings and the impression was discussed with the patient. I attest to the documentation by the nurse practitioner. Time with Patient: Greater than 30
--- NOTE | 2018-03-24 12:58 | CT ---
EXAMINATION TYPE: CT chest wo con DATE OF EXAM: 03/24/2018 COMPARISON: Chest x-ray 03/23/2018 HISTORY: Unproductive cough. Difficulty breathing. CT DLP: 444.1 mGycm. Automated Exposure Control for Dose Reduction was Utilized. TECHNIQUE: CT scan of the thorax is performed without IV contrast. FINDINGS: Lack of contrast may compromise sensitivity of the exam. LUNGS: The lungs are grossly clear, there is no concerning parenchymal mass or nodule identified. S ome minimal basilar and posterior dependent atelectatic changes are present. There is no pleural effu chery or pneumothorax seen. The tracheobronchial tree is patent. MEDIASTINUM: Lack of IV contrast is noted to limit evaluation for mediastinal and especially hilar ad enopathy. There are no definitive greater than 1 cm hilar or mediastinal lymph nodes. No cardiomega ly or pericardial effusion is seen. OTHER: Postop changes are noted along the stomach. IMPRESSION: No evident pneumonia.
[2018-03-24] MEDS: PIPERACILLIN-TAZOBACTAM 3.375 GM in SODIUM CHLORIDE 0.9% 100 ML IVPB SCH ×2 (16:31→23:31)
[2018-03-24] MEDS: INSULIN ASPART 100 UNIT/ML 1 ML 10 ML VIAL SQ SCH ×2 (17:32→20:44)
[2018-03-24 17:40] LABS: Glucose,Whole Blood 143 mg/dL (75-99)
[2018-03-24] MEDS: MAG HYDROX/AL HYDROX/SIMETH 30 ML, diphenhydrAMINE ELIXIR 75 MG, LIDOCAINE VISCOUS 30 ML PO PRN ×3 (17:40)
[2018-03-24] MEDS: BUDESONIDE 1 MG/2 ML NEBU INHALATION SCH (19:17)
[2018-03-24 19:51] LABS: Glucose,Whole Blood 168 mg/dL (75-99)
[2018-03-24] MEDS: FERROUS SULFATE 325 MG TAB PO SCH (20:44)
[2018-03-25] MEDS: IPRATROPIUM-ALBUTEROL 3 ML NEB INHALATION SCH ×6 (03:05→23:26)
[2018-03-25] MEDS: methylPREDNISolone SOD SUCCI 125 MG/2 ML VIAL IV SCH ×3 (05:13→17:37)
[2018-03-25] MEDS: ACETAMINOPHEN TAB 325 MG TAB PO PRN ×3 (05:15→21:17)
[2018-03-25 07:06] LABS: Glucose,Whole Blood 215 mg/dL (75-99)
[2018-03-25] MEDS: PIPERACILLIN-TAZOBACTAM 3.375 GM in SODIUM CHLORIDE 0.9% 100 ML IVPB SCH ×2 (07:51→16:36)
[2018-03-25] MEDS: INSULIN ASPART 100 UNIT/ML 1 ML 10 ML VIAL SQ SCH ×4 (07:51→21:17)
[2018-03-25] MEDS: guaiFENesin 600 MG TABLET.ER PO SCH ×2 (07:52→21:16)
[2018-03-25] MEDS: BENZONATATE 100 MG CAP PO SCH ×3 (07:52→21:16)
[2018-03-25] MEDS: FERROUS SULFATE 325 MG TAB PO SCH ×2 (07:52→21:16)
[2018-03-25] MEDS: DILTIAZEM CD 300 MG CAP.ER.24H PO SCH (07:53)
[2018-03-25] MEDS: VENLAFAXINE HCL ER 37.5 MG CAP PO SCH (07:53)
[2018-03-25] MEDS: MONTELUKAST 10 MG TAB PO SCH (07:53)
[2018-03-25] MEDS: MAG HYDROX/AL HYDROX/SIMETH 30 ML, diphenhydrAMINE ELIXIR 75 MG, LIDOCAINE VISCOUS 30 ML PO PRN ×3 (07:54)
[2018-03-25] MEDS: BUDESONIDE 1 MG/2 ML NEBU INHALATION SCH ×2 (08:52→20:11)
[2018-03-25] MEDS: FORMOTEROL FUMARATE 20 MCG/2 ML NEBU INHALATION SCH ×2 (08:52→20:11)
[2018-03-25 10:12] LABS: Hemoglobin A1C 5.9 % (4.0-6.0)
[2018-03-25 11:48] LABS: Glucose,Whole Blood 174 mg/dL (75-99)
[2018-03-25] MEDS: PROMETHAZ-COD 6.25-10 MG/5 ML 5 ML CUP PO PRN ×2 (13:19→17:36)
--- NOTE | 2018-03-25 13:59 | P.PN ---
Subjective Progress Note Date: 03/25/18 Principal diagnosis: Exacerbation of severe persistent asthma with purulent tracheobronchitis. This is a 52-year-old white female patient with medical history of severe persistent crying bronchial asthma, GERD, obstructive sleep apnea on CPAP therapy, morbid obesity, hypothyroidism, vitamin D deficiency, history of viral cardiomyopathy, DJD, there was recently hospitalized for acute exacerbation of chronic bronchial asthma, purulent tracheobronchitis, bronchopneumonia in the right lower lobe. required a bronchoscopy with bronchoalveolar lavage, and respiratory syncytial virus was positive in the bronchial lavage. Cytology was negative. Patient had a extended hospitalization, she finally started to show some improvement, patient was discharged home on 03/18/2018 she had been seen in follow-up at the pulmonary clinic by Dr. Christensen on 03/21/2018. She was still not back to her baseline, she was completing her prednisone taper, was sent home with nebulized treatments, overall she was improving. Patient came back to the hospital on 03/23/2018 with complaints of worsening shortness of breath, wheezing, chest congestion with production of yellow orange sputum. Chest x-ray completed on admission was negative for any acute cardiopulmonary process. Initial blood work showed white count of 12.4, hemoglobin of 13.9, actually lites and renal profile were within normal limits, troponin was negative 1, patient has been afebrile, patient was discharged home on home oxygen and she remains on 3 L per nasal cannula, bronchial wash cultures were reviewed from previous bronchoscopy on 08/11/2018 and showed only Neelima albicans. Patient was started on IV Solu-Medrol at 125 mg every 12 hours, nebulized bronchodilators, Pulmicort and Perforomist. On 03/25/2018 patient seen in follow-up on medical surgical floor. She is still quite dyspneic, lung sounds are diminished, and patient has frequent bouts of coughing, not able to bring up any phlegm, no fever or chills, she remains on oxygen, 3 L per nasal cannula pulse ox is 96%, afebrile, patient is being treated with IV Solu-Medrol, yesterday we added Zosyn for empiric antibiotic coverage, blood culture showed no growth, patient is receiving nebulized bronchodilators, Perforomist and Pulmicort. Very little improvement in the way of symptoms, we'll schedule the patient for bronchoscopy with BAL tomorrow with Dr. Quiñones. Objective - Vital Signs Vital signs: Vital Signs Temp 98.6 F 03/25/18 07:48 Pulse 92 03/25/18 12:54 Resp 20 03/25/18 07:48 BP 129/83 03/25/18 07:48 Pulse Ox 96 03/25/18 07:48 Intake & Output 03/24/18 03/25/18 03/25/18 18:59 06:59 18:59 Intake Total 200 100 Balance 200 100 Intake: Intake, IV Titration 200 100 Amount Piperacillin-Tazobactam 3 200 100 .375 gm In Sodium Chloride 0.9% 100 ml @ 25 mls/hr IVPB Q8HR [facility] Rx# :[id number] Other: # Voids 2 1 - Exam GENERAL EXAM: Alert, pleasant, 52-year-old obese white female on 3 L per nasal cannula, and frequent episodes of coughing comfortable in no apparent distress. HEAD: Normocephalic/atraumatic. EYES: Normal reaction of pupils, equal size. Conjunctiva pink, sclera white. NOSE: Clear with pink turbinates. THROAT: No erythema or exudates. NECK: No masses, no JVD, no thyroid enlargement, no adenopathy. CHEST: No chest wall deformity. Symmetrical expansion. LUNGS: Equal air entry with diffuse wheezes, and diminished air entry bilaterally CVS: Regular rate and rhythm, normal S1 and S2, no gallops, no murmurs, no rubs ABDOMEN: Soft, nontender. No hepatosplenomegaly, normal bowel sounds, no guarding or rigidity. EXTREMITIES: No clubbing, no edema, no cyanosis, 2+ pulses and upper and lower extremities. MUSCULOSKELETAL: Muscle strength and tone normal. SPINE: No scoliosis or deformity SKIN: No rashes CENTRAL NERVOUS SYSTEM: Alert and oriented -3. No focal deficits, tone is normal in all 4 extremities. PSYCHIATRIC: Alert and oriented -3. Appropriate affect. Intact judgment and insight. - Labs CBC & Chem 7: 03/23/18 12:12 03/23/18 13:12 Labs: Abnormal Lab Results - Last 24 Hours (Table) 03/24/18 03/24/18 03/25/18 Range/Units 17:29 19:40 06:55 POC Glucose (mg/dL) 143 H 168 H 215 H (75-99) mg/dL 03/25/18 Range/Units 11:37 POC Glucose (mg/dL) 174 H (75-99) mg/dL Microbiology - Last 24 Hours (Table) 03/23/18 12:12 Blood Culture - Preliminary Blood No Growth after 24 hours Assessment and Plan Plan: Assessment: #1. Acute exacerbation of severe persistent asthma, with purulent tracheobronchitis, chest x-ray and CT chest did not show any clear evidence of pneumonia. #2. Chronic hypoxemic respiratory failure related to recent episode of tracheobronchitis, RSV, and the possibility of right lower lobe bronchopneumonia #3. Recent extended hospitalization related to the above, the patient underwent bronchoscopy with BAL, cultures positive for Neelima albicans and respiratory syncytial virus #4. Acute tracheobronchitis, and tracheobronchomalacia #5. Gastroesophageal reflux disease #6. Sleep apnea syndrome, on CPAP therapy #7. Morbid obesity #8. Hypothyroidism #9. Degenerative joint disease #10. Vitamin D deficiency #11. History of viral cardiomyopathy Plan: Continue with current medical treatment, continue empiric antibiotics, patient still quiet short of breath, with frequent coughing, not able to bring up any sputum, we'll proceed with bronchoscopy with BAL tomorrow, nothing by mouth after midnight, this was discussed with the patient and she is agreeable to proceed. I performed a history & physical examination of the patient and discussed their management with my nurse practitioner, Amanda Stover. I reviewed the nurse practitioner's note and agree with the documented findings and plan of care. Lung sounds are positive for diffuse wheezes throughout the lung luevano. The findings and the impression was discussed with the patient. I attest to the documentation by the nurse practitioner. Time with Patient: Less than 30
--- NOTE | 2018-03-25 16:33 | P.PN ---
Subjective Progress Note Date: 03/25/18 The patient was seen and examined at the bedside. She continues to have non- productive cough w/ SOB. Denying chest pain, fever, chills, nausea, or vomiting. Objective - Vital Signs Vital signs: Vital Signs Temp 98.5 F 03/25/18 14:25 Pulse 86 03/25/18 14:25 Resp 20 03/25/18 07:48 BP 120/73 03/25/18 14:25 Pulse Ox 94 L 03/25/18 14:25 Intake & Output 03/24/18 03/25/18 03/25/18 18:59 06:59 18:59 Intake Total 200 100 Balance 200 100 Intake: Intake, IV Titration 200 100 Amount Piperacillin-Tazobactam 3 200 100 .375 gm In Sodium Chloride 0.9% 100 ml @ 25 mls/hr IVPB Q8HR [facility] Rx# :[id number] Other: # Voids 2 1 - Exam General: Non-toxic, in no acute distress, appears stated age, morbidly obese HEENT: NC/AT, anicteric sclerae, moist conjunctiva, no lid-lag, PERRLA Cardiovascular: S1/S2 wnl, no murmurs, rubs, or gallops Lungs: Bilateral wheezing with some coarse breath sounds, normal respiratory effort, no accessory muscle use Abdominal: Soft, non-tender, non-distended, no guarding, rebound, or rigidity Skin: Warm, dry Extremities: No edema or contractures Psychiatric: Alert and oriented to person, place and time, appropriate affect Neuro: CN II-XII grossly intact, Strength 5/5 in all 4 extremities, Speech intact, Sensation to light touch grossly intact throughout - Labs CBC & Chem 7: 03/23/18 12:12 03/23/18 13:12 Labs: Abnormal Lab Results - Last 24 Hours (Table) 03/24/18 03/24/18 03/25/18 Range/Units 17:29 19:40 06:55 POC Glucose (mg/dL) 143 H 168 H 215 H (75-99) mg/dL 03/25/18 Range/Units 11:37 POC Glucose (mg/dL) 174 H (75-99) mg/dL Microbiology - Last 24 Hours (Table) 03/23/18 12:12 Blood Culture - Preliminary Blood No Growth after 48 hours Assessment and Plan Plan: Acute asthma exacerbation w/ recent hospitalization for purulent tracheobronchitis and bronchopneumonia -Pulmonary following, recs appreciated. -Patient to undergo repeat Bronchoscopy w/ BAL tomorrow -Will c/w Solumedrol and Duonebs -C/w MELI with FS -C/w Singulair with Zosyn for now Chronic hypoxic respiratory failure with acute tracheobronchitis and suspected tracheomalacia -C/w supplemental oxygen Hypothyroidism -C/w home dose synthroid GERD -C/w protonix DVT//GI prophylaxis -IPCDs -Protonix Discussed with: Patient Anticipated discharge date: 03/27/[address]: Home A total of 35 minutes was spent on the care of this complex patient more than 50 % of the time was spent in counseling and care coordination.
[2018-03-25 17:24] LABS: Glucose,Whole Blood 188 mg/dL (75-99)
[2018-03-25 21:02] LABS: Glucose,Whole Blood 222 mg/dL (75-99)
[2018-03-26] MEDS: methylPREDNISolone SOD SUCCI 125 MG/2 ML VIAL IV SCH ×4 (01:33→18:00)
[2018-03-26] MEDS: PIPERACILLIN-TAZOBACTAM 3.375 GM in SODIUM CHLORIDE 0.9% 100 ML IVPB SCH ×3 (01:34→16:15)
[2018-03-26] MEDS: PROMETHAZ-COD 6.25-10 MG/5 ML 5 ML CUP PO PRN ×3 (01:46→20:00)
[2018-03-26] MEDS: ACETAMINOPHEN TAB 325 MG TAB PO PRN ×3 (01:51→20:00)
[2018-03-26] MEDS: IPRATROPIUM-ALBUTEROL 3 ML NEB INHALATION SCH ×5 (03:38→20:51)
[2018-03-26] MEDS: BUDESONIDE 1 MG/2 ML NEBU INHALATION SCH ×2 (07:08→20:51)
[2018-03-26] MEDS: FORMOTEROL FUMARATE 20 MCG/2 ML NEBU INHALATION SCH ×2 (07:08→20:51)
[2018-03-26 07:24] LABS: Glucose,Whole Blood 158 mg/dL (75-99)
[2018-03-26] MEDS: FERROUS SULFATE 325 MG TAB PO SCH ×2 (08:03→22:17)
[2018-03-26] MEDS: INSULIN ASPART 100 UNIT/ML 1 ML 10 ML VIAL SQ SCH ×4 (08:03→22:17)
[2018-03-26] MEDS: PANTOPRAZOLE 40 MG TABLET PO SCH (08:03)
[2018-03-26] MEDS: MAG HYDROX/AL HYDROX/SIMETH 30 ML, diphenhydrAMINE ELIXIR 75 MG, LIDOCAINE VISCOUS 30 ML PO PRN ×9 (08:04→22:17)
[2018-03-26] MEDS: VENLAFAXINE HCL ER 37.5 MG CAP PO SCH (08:04)
[2018-03-26] MEDS: DILTIAZEM CD 300 MG CAP.ER.24H PO SCH (08:04)
[2018-03-26] MEDS: guaiFENesin 600 MG TABLET.ER PO SCH ×2 (08:05→22:17)
[2018-03-26] MEDS: MONTELUKAST 10 MG TAB PO SCH (08:05)
[2018-03-26] MEDS: BENZONATATE 100 MG CAP PO SCH ×3 (08:05→22:17)
--- NOTE | 2018-03-26 09:26 | P.PN ---
Subjective Progress Note Date: 03/26/18 The patient is a 52 yo F with a PMH of asthma, hypothyroidism, GERD, and ITZ presented to the ED for worsening SOB and wheezing. The patient was recently admitted to [facility] for exacerbation of severe persistent bronchial asthma, purulent tracheobronchitis, and RLL bronchopneumonia. She had a prolonged hospital course and underwent a bronchoscopy with BAL which was positive for RSV and Neelima. The patient gradually improved and was discharged on 03/18/18 to home w/ a taper of steroids. She was seen for a f/u in the Pulmonary clinic and had some improvement since discharge but her symptoms subsequently persisted and she re-presented to the ED. She had SOB and wheezing with CXR negative for pneumonia. The patient was subsequently admitted for asthma exacerbation and stared on IV solumedrol and Duonebs. Pulmonary was consulted and recommended a repeat bronchoscopy. The patient was seen and examined at the bedside. She continues to have a non- productive cough with wheezing and had a fever of 100.3 overnight. She denied chest pain, diarrhea, abdominal pain, headache, nausea, or vomiting. She is scheduled to undergo a Bronchoscopy with BAL today. Objective - Vital Signs Vital signs: Vital Signs Temp 99.4 F 03/26/18 08:09 Pulse 106 H 03/26/18 08:09 Resp 16 03/26/18 08:09 BP 122/76 03/26/18 08:09 Pulse Ox 92 L 03/26/18 08:09 Intake & Output 03/25/18 03/26/18 03/26/18 18:59 06:59 18:59 Intake Total 100 200 Balance 100 200 Intake: Intake, IV Titration 100 200 Amount Piperacillin-Tazobactam 3 100 200 .375 gm In Sodium Chloride 0.9% 100 ml @ 25 mls/hr IVPB Q8HR [facility] Rx# :[id number] Other: # Voids 1 - Exam General: Non-toxic, in no acute distress, appears stated age, morbidly obese HEENT: NC/AT, anicteric sclerae, moist conjunctiva, no lid-lag, PERRLA Cardiovascular: S1/S2 wnl, no murmurs, rubs, or gallops Lungs: Decreased breath sounds throughout with some wheezing and coarse breath sounds, normal respiratory effort, no accessory muscle use Abdominal: Soft, non-tender, non-distended, no guarding, rebound, or rigidity Skin: Warm, dry Extremities: No edema or contractures Psychiatric: Alert and oriented to person, place and time, appropriate affect Neuro: CN II-XII grossly intact, Strength 5/5 in all 4 extremities, Speech intact, Sensation to light touch grossly intact throughout - Labs CBC & Chem 7: 03/23/18 12:12 03/23/18 13:12 Labs: Abnormal Lab Results - Last 24 Hours (Table) 03/25/18 03/25/18 03/25/18 Range/Units 11:37 17:12 21:00 POC Glucose (mg/dL) 174 H 188 H 222 H (75-99) mg/dL 03/26/18 Range/Units 07:13 POC Glucose (mg/dL) 158 H (75-99) mg/dL Microbiology - Last 24 Hours (Table) 03/23/18 12:12 Blood Culture - Preliminary Blood No Growth after 48 hours Assessment and Plan Plan: Acute asthma exacerbation w/ recent hospitalization for purulent tracheobronchitis and bronchopneumonia -Pulmonary following, recs appreciated -Scheduled for repeat Bronch w/ BAL today -Will c/w Solumedrol and Duonebs -C/w MELI with FS -C/w Singulair with Zosyn for now Chronic hypoxic respiratory failure with acute tracheobronchitis and suspected tracheomalacia -C/w supplemental oxygen Hypothyroidism -C/w home dose synthroid GERD -C/w protonix DVT//GI prophylaxis -IPCDs -Protonix Discussed with: Patient Anticipated discharge date: 03/28/[address]: Home A total of 35 minutes was spent on the care of this complex patient more than 50 % of the time was spent in counseling and care coordination.
--- NOTE | 2018-03-26 11:12 | P.PN ---
Subjective Progress Note Date: 03/26/18 Principal diagnosis: Exacerbation of severe persistent asthma with purulent tracheobronchitis. This is a 52-year-old white female patient with medical history of severe persistent crying bronchial asthma, GERD, obstructive sleep apnea on CPAP therapy, morbid obesity, hypothyroidism, vitamin D deficiency, history of viral cardiomyopathy, DJD, there was recently hospitalized for acute exacerbation of chronic bronchial asthma, purulent tracheobronchitis, bronchopneumonia in the right lower lobe. required a bronchoscopy with bronchoalveolar lavage, and respiratory syncytial virus was positive in the bronchial lavage. Cytology was negative. Patient had a extended hospitalization, she finally started to show some improvement, patient was discharged home on 03/18/2018 she had been seen in follow-up at the pulmonary clinic by Dr. Christensen on 03/21/2018. She was still not back to her baseline, she was completing her prednisone taper, was sent home with nebulized treatments, overall she was improving. Patient came back to the hospital on 03/23/2018 with complaints of worsening shortness of breath, wheezing, chest congestion with production of yellow orange sputum. Chest x-ray completed on admission was negative for any acute cardiopulmonary process. Initial blood work showed white count of 12.4, hemoglobin of 13.9, actually lites and renal profile were within normal limits, troponin was negative 1, patient has been afebrile, patient was discharged home on home oxygen and she remains on 3 L per nasal cannula, bronchial wash cultures were reviewed from previous bronchoscopy on 08/11/2018 and showed only Neelima albicans. Patient was started on IV Solu-Medrol at 125 mg every 12 hours, nebulized bronchodilators, Pulmicort and Perforomist. On 03/25/2018 patient seen in follow-up on medical surgical floor. She is still quite dyspneic, lung sounds are diminished, and patient has frequent bouts of coughing, not able to bring up any phlegm, no fever or chills, she remains on oxygen, 3 L per nasal cannula pulse ox is 96%, afebrile, patient is being treated with IV Solu-Medrol, yesterday we added Zosyn for empiric antibiotic coverage, blood culture showed no growth, patient is receiving nebulized bronchodilators, Perforomist and Pulmicort. Very little improvement in the way of symptoms, we'll schedule the patient for bronchoscopy with BAL tomorrow with Dr. Quiñones. On 03/26/2018 patient seen in follow-up on medical surgical floor. She is resting in bed, she states she is quite dyspneic, still coughing quite a bit, not able to bring up any sputum, lung sounds are diminished, with scattered wheezes. Patient is on empiric antibiotics, Solu-Medrol, Pulmicort and Perforomist and cough syrup. No labs today, no new chest x-ray. Did have a low -grade temp last night, with a T-max of 100.3F. Antibiotic coverage in the form of Zosyn. Objective - Vital Signs Vital signs: Vital Signs Temp 99.4 F 03/26/18 08:09 Pulse 94 03/26/18 11:06 Resp 16 03/26/18 11:06 BP 122/76 03/26/18 08:09 Pulse Ox 92 L 03/26/18 08:09 Intake & Output 03/25/18 03/26/18 03/26/18 18:59 06:59 18:59 Intake Total 100 200 Balance 100 200 Intake: Intake, IV Titration 100 200 Amount Piperacillin-Tazobactam 3 100 200 .375 gm In Sodium Chloride 0.9% 100 ml @ 25 mls/hr IVPB Q8HR [facility] Rx# :[id number] Other: # Voids 1 - Exam GENERAL EXAM: Alert, pleasant, 52-year-old obese white female on 3 L per nasal cannula, and frequent episodes of coughing comfortable in no apparent distress. HEAD: Normocephalic/atraumatic. EYES: Normal reaction of pupils, equal size. Conjunctiva pink, sclera white. NOSE: Clear with pink turbinates. THROAT: No erythema or exudates. NECK: No masses, no JVD, no thyroid enlargement, no adenopathy. CHEST: No chest wall deformity. Symmetrical expansion. LUNGS: Equal air entry with diffuse wheezes, and diminished air entry bilaterally CVS: Regular rate and rhythm, normal S1 and S2, no gallops, no murmurs, no rubs ABDOMEN: Soft, nontender. No hepatosplenomegaly, normal bowel sounds, no guarding or rigidity. EXTREMITIES: No clubbing, no edema, no cyanosis, 2+ pulses and upper and lower extremities. MUSCULOSKELETAL: Muscle strength and tone normal. SPINE: No scoliosis or deformity SKIN: No rashes CENTRAL NERVOUS SYSTEM: Alert and oriented -3. No focal deficits, tone is normal in all 4 extremities. PSYCHIATRIC: Alert and oriented -3. Appropriate affect. Intact judgment and insight. - Labs CBC & Chem 7: 03/23/18 12:12 03/23/18 13:12 Labs: Abnormal Lab Results - Last 24 Hours (Table) 03/25/18 03/25/18 03/25/18 Range/Units 11:37 17:12 21:00 POC Glucose (mg/dL) 174 H 188 H 222 H (75-99) mg/dL 03/26/18 Range/Units 07:13 POC Glucose (mg/dL) 158 H (75-99) mg/dL Microbiology - Last 24 Hours (Table) 03/23/18 12:12 Blood Culture - Preliminary Blood No Growth after 48 hours Assessment and Plan Plan: Assessment: #1. Acute exacerbation of severe persistent asthma, with purulent tracheobronchitis, chest x-ray and CT chest did not show any clear evidence of pneumonia. #2. Chronic hypoxemic respiratory failure related to recent episode of tracheobronchitis, RSV, and the possibility of right lower lobe bronchopneumonia #3. Recent extended hospitalization related to the above, the patient underwent bronchoscopy with BAL, cultures positive for Neelima albicans and respiratory syncytial virus #4. Acute tracheobronchitis, and tracheobronchomalacia #5. Gastroesophageal reflux disease #6. Sleep apnea syndrome, on CPAP therapy #7. Morbid obesity #8. Hypothyroidism #9. Degenerative joint disease #10. Vitamin D deficiency #11. History of viral cardiomyopathy Plan: Continue current medical treatment, patient is boarded for bronchoscopy with BAL today, bronchial wash cultures will be sent for analysis. Continue current antibiotic coverage, current dose IV steroids and nebulized bronchodilators. I performed a history & physical examination of the patient and discussed their management with my nurse practitioner, Amanda Stover. I reviewed the nurse practitioner's note and agree with the documented findings and plan of care. Lung sounds are positive for diffuse wheezes throughout the lung luevano. The findings and the impression was discussed with the patient. I attest to the documentation by the nurse practitioner. Time with Patient: Less than 30
[2018-03-26] MEDS ORDERED: MIDAZOLAM 2 MG/2 ML VIAL ONE (11:47)
[2018-03-26] MEDS ORDERED: PROPOFOL 10 MG/ML 20 ML VIAL IV ONE (11:47)
[2018-03-26] MEDS ORDERED: LIDOCAINE 1% INJ 10MG/ML (20 ML MDV) ONE (11:47)
[2018-03-26] MEDS ORDERED: IV FLUID CONTINUATION 1,000 ML IV ONE (11:52)
[2018-03-26] MEDS ORDERED: LIDOCAINE 2% INJ 20 MG/ML INTRATRACH ONE (11:56)
--- NOTE | 2018-03-26 12:21 | PCN ---
PROCEDURE NOTE PROCEDURE: Bronchoscopy, airway examination, therapeutic lavage, BAL. PREOPERATIVE DIAGNOSIS: Asthma exacerbation, lung infection. POSTOPERATIVE DIAGNOSIS: Asthma exacerbation, lung infection. Dr. Quiñones and Dr. Christensen were the operators. There was informed consent. There was universal timeout. Eliane Burgess CRNA provided general anesthesia/unconscious sedation. After the patient was adequately sedated and being fully monitored, the bronchoscope was inserted through the right nostril. It passed through the right nasopharynx into the oropharynx. The hypopharynx was identified. The hypopharyngeal structures including anterior commissure, true cords, false cords, arytenoids, piriform sinuses, right and left vallecula and epiglottis all appeared relatively normal. After topicalization, bronchoscope was pushed through the glottic opening into the trachea. There were thick secretions noted in the distal trachea. Tracheal moi was sharp. Right and left mainstem were topicalized. After topicalization, the bronchoscope was used to evaluate the right upper lobe and its 3 segments, the right middle lobe and its 2 segments, right lower lobe and its 5 segments, left upper lobe proper and its 2 segments, the lingula and its 2 segments and the left lower lobe and its 4 segments. The airways were very erythematous and hyperemic. There was severe bronchitis throughout. There was significant vascular engorgement and mucosal friability. The patient bled easily. There were thick secretions and mucus plugs noted throughout both lungs. They were mostly lower lobes. They were suctioned. Next, the bronchoscope was wedged into the right middle lobe. The BAL took place. The patient tolerated the procedure well. There was no immediate complications. There was no dominant mass. The bronchoscope was withdrawn and the patient will be recovered. There were no immediate complications. MMODL / IJN: [id number] /
[2018-03-26] MEDS: FLUTICASONE 50MCG/SPRAY NASAL 16GM EA NOSTRIL SCH (12:26)
[2018-03-26 12:33] LABS: Glucose,Whole Blood 157 mg/dL (75-99)
[2018-03-26 17:20] LABS: Glucose,Whole Blood 208 mg/dL (75-99)
[2018-03-26 20:50] LABS: Glucose,Whole Blood 166 mg/dL (75-99)
[2018-03-27] MEDS: methylPREDNISolone SOD SUCCI 125 MG/2 ML VIAL IV SCH ×4 (00:11→17:37)
[2018-03-27] MEDS: PIPERACILLIN-TAZOBACTAM 3.375 GM in SODIUM CHLORIDE 0.9% 100 ML IVPB SCH ×3 (00:12→17:37)
[2018-03-27] MEDS: IPRATROPIUM-ALBUTEROL 3 ML NEB INHALATION SCH ×6 (01:09→20:19)
[2018-03-27] MEDS: MAG HYDROX/AL HYDROX/SIMETH 30 ML, diphenhydrAMINE ELIXIR 75 MG, LIDOCAINE VISCOUS 30 ML PO PRN ×9 (05:04→22:49)
[2018-03-27 07:26] LABS: Glucose,Whole Blood 192 mg/dL (75-99)
[2018-03-27] MEDS: BUDESONIDE 1 MG/2 ML NEBU INHALATION SCH ×2 (07:30→20:19)
[2018-03-27] MEDS: FORMOTEROL FUMARATE 20 MCG/2 ML NEBU INHALATION SCH ×2 (07:30→20:19)
[2018-03-27] MEDS: guaiFENesin 600 MG TABLET.ER PO SCH ×2 (07:38→20:29)
[2018-03-27] MEDS: FLUTICASONE 50MCG/SPRAY NASAL 16GM EA NOSTRIL SCH (07:38)
[2018-03-27] MEDS: PANTOPRAZOLE 40 MG TABLET PO SCH (07:39)
[2018-03-27] MEDS: VENLAFAXINE HCL ER 37.5 MG CAP PO SCH (07:39)
[2018-03-27] MEDS: FERROUS SULFATE 325 MG TAB PO SCH ×2 (07:39→20:29)
[2018-03-27] MEDS: INSULIN ASPART 100 UNIT/ML 1 ML 10 ML VIAL SQ SCH ×4 (07:39→20:29)
[2018-03-27] MEDS: BENZONATATE 100 MG CAP PO SCH ×3 (07:39→21:55)
[2018-03-27] MEDS: DILTIAZEM CD 300 MG CAP.ER.24H PO SCH (07:39)
[2018-03-27] MEDS: MONTELUKAST 10 MG TAB PO SCH (07:39)
[2018-03-27] MEDS ORDERED: LACTATED RINGERS 1,000 ML IV SCH (08:14)
[2018-03-27] MEDS: PROMETHAZ-COD 6.25-10 MG/5 ML 5 ML CUP PO PRN ×2 (11:40→21:59)
[2018-03-27 11:47] LABS: Glucose,Whole Blood 158 mg/dL (75-99)
--- NOTE | 2018-03-27 14:20 | P.PN ---
Subjective Progress Note Date: 03/27/18 Principal diagnosis: Exacerbation of severe persistent asthma with purulent tracheobronchitis. This is a 52-year-old white female patient with medical history of severe persistent crying bronchial asthma, GERD, obstructive sleep apnea on CPAP therapy, morbid obesity, hypothyroidism, vitamin D deficiency, history of viral cardiomyopathy, DJD, there was recently hospitalized for acute exacerbation of chronic bronchial asthma, purulent tracheobronchitis, bronchopneumonia in the right lower lobe. required a bronchoscopy with bronchoalveolar lavage, and respiratory syncytial virus was positive in the bronchial lavage. Cytology was negative. Patient had a extended hospitalization, she finally started to show some improvement, patient was discharged home on 03/18/2018 she had been seen in follow-up at the pulmonary clinic by Dr. Christensen on 03/21/2018. She was still not back to her baseline, she was completing her prednisone taper, was sent home with nebulized treatments, overall she was improving. Patient came back to the hospital on 03/23/2018 with complaints of worsening shortness of breath, wheezing, chest congestion with production of yellow orange sputum. Chest x-ray completed on admission was negative for any acute cardiopulmonary process. Initial blood work showed white count of 12.4, hemoglobin of 13.9, actually lites and renal profile were within normal limits, troponin was negative 1, patient has been afebrile, patient was discharged home on home oxygen and she remains on 3 L per nasal cannula, bronchial wash cultures were reviewed from previous bronchoscopy on 08/11/2018 and showed only Neelima albicans. Patient was started on IV Solu-Medrol at 125 mg every 12 hours, nebulized bronchodilators, Pulmicort and Perforomist. On 03/25/2018 patient seen in follow-up on medical surgical floor. She is still quite dyspneic, lung sounds are diminished, and patient has frequent bouts of coughing, not able to bring up any phlegm, no fever or chills, she remains on oxygen, 3 L per nasal cannula pulse ox is 96%, afebrile, patient is being treated with IV Solu-Medrol, yesterday we added Zosyn for empiric antibiotic coverage, blood culture showed no growth, patient is receiving nebulized bronchodilators, Perforomist and Pulmicort. Very little improvement in the way of symptoms, we'll schedule the patient for bronchoscopy with BAL tomorrow with Dr. Quiñones. On 03/26/2018 patient seen in follow-up on medical surgical floor. She is resting in bed, she states she is quite dyspneic, still coughing quite a bit, not able to bring up any sputum, lung sounds are diminished, with scattered wheezes. Patient is on empiric antibiotics, Solu-Medrol, Pulmicort and Perforomist and cough syrup. No labs today, no new chest x-ray. Did have a low -grade temp last night, with a T-max of 100.3F. Antibiotic coverage in the form of Zosyn. On March 27, 2018 patient seen in follow-up on medical surgical floor. She sat in the chair, still complaining of dyspnea, often, lung sounds are diminished, with some end expiratory wheezing. Patient is on 3 L per nasal cannula, her pulse ox is 93%, afebrile. Bronchial wash cultures are negative to date. Continues on empiric antibiotics including Zosyn, she is on empiric antibiotics, IV steroids, will continue with current medical treatment, status post bronchoscopy with BAL yesterday, on 03/26/2018. Still quite bronchospastic and dyspneic, Objective - Vital Signs Vital signs: Vital Signs Temp 98.6 F 03/27/18 07:00 Pulse 100 03/27/18 11:15 Resp 16 03/27/18 08:00 BP 135/76 03/27/18 07:00 Pulse Ox 97 03/27/18 07:00 Intake & Output 03/26/18 03/27/18 03/27/18 18:59 06:59 18:59 Intake Total 100 130 Balance 100 130 Intake: IV 0 Intake, IV Titration 100 130 Amount IV Fluid Continuation 1, 30 000 ml @ 0 mls/hr IV .[facility] Rx#:[id number] Piperacillin-Tazobactam 3 100 100 .375 gm In Sodium Chloride 0.9% 100 ml @ 25 mls/hr IVPB Q8HR [facility] Rx# :[id number] Other: Voiding Method Toilet - Exam GENERAL EXAM: Alert, pleasant, 52-year-old obese white female on 3 L per nasal cannula, and frequent episodes of coughing comfortable in no apparent distress. HEAD: Normocephalic/atraumatic. EYES: Normal reaction of pupils, equal size. Conjunctiva pink, sclera white. NOSE: Clear with pink turbinates. THROAT: No erythema or exudates. NECK: No masses, no JVD, no thyroid enlargement, no adenopathy. CHEST: No chest wall deformity. Symmetrical expansion. LUNGS: Equal air entry with diffuse wheezes, and diminished air entry bilaterally CVS: Regular rate and rhythm, normal S1 and S2, no gallops, no murmurs, no rubs ABDOMEN: Soft, nontender. No hepatosplenomegaly, normal bowel sounds, no guarding or rigidity. EXTREMITIES: No clubbing, no edema, no cyanosis, 2+ pulses and upper and lower extremities. MUSCULOSKELETAL: Muscle strength and tone normal. SPINE: No scoliosis or deformity SKIN: No rashes CENTRAL NERVOUS SYSTEM: Alert and oriented -3. No focal deficits, tone is normal in all 4 extremities. PSYCHIATRIC: Alert and oriented -3. Appropriate affect. Intact judgment and insight. - Labs CBC & Chem 7: 03/23/18 12:12 03/23/18 13:12 Labs: Abnormal Lab Results - Last 24 Hours (Table) 03/26/18 03/26/18 03/27/18 Range/Units 17:09 20:38 07:16 POC Glucose (mg/dL) 208 H 166 H 192 H (75-99) mg/dL 03/27/18 Range/Units 11:36 POC Glucose (mg/dL) 158 H (75-99) mg/dL Microbiology - Last 24 Hours (Table) 03/26/18 12:00 Gram Stain - Preliminary Bronchoalviolar Lavage - Right Bronchial Washings Culture - Preliminary 03/26/18 12:00 Fungal Culture - Preliminary Bronchoalviolar Lavage - Right 03/26/18 12:00 Acid Fast Bacilli Culture - Preliminary Bronchoalviolar Lavage - Right 03/23/18 12:12 Blood Culture - Preliminary Blood No Growth after 72 hours Assessment and Plan Plan: Assessment: #1. Acute exacerbation of severe persistent asthma, with purulent tracheobronchitis, chest x-ray and CT chest did not show any clear evidence of pneumonia. #2. Chronic hypoxemic respiratory failure related to recent episode of tracheobronchitis, RSV, and the possibility of right lower lobe bronchopneumonia #3. Recent extended hospitalization related to the above, the patient underwent bronchoscopy with BAL, cultures positive for Neelima albicans and respiratory syncytial virus #4. Acute tracheobronchitis, and tracheobronchomalacia #5. Gastroesophageal reflux disease #6. Sleep apnea syndrome, on CPAP therapy #7. Morbid obesity #8. Hypothyroidism #9. Degenerative joint disease #10. Vitamin D deficiency #11. History of viral cardiomyopathy Plan: Bronchoscope was cultures are negative to date, no fever or chills, still quite bronchospastic, and dyspneic, coughing a lot. Continue with current medical treatment, IV steroids, nebulized bronchodilators, and empiric antibiotics. Not ready for discharge. I performed a history & physical examination of the patient and discussed their management with my nurse practitioner, Amanda Stover. I reviewed the nurse practitioner's note and agree with the documented findings and plan of care. Lung sounds are positive for diffuse wheezes throughout the lung luevano. The findings and the impression was discussed with the patient. I attest to the documentation by the nurse practitioner. Time with Patient: Less than 30
--- NOTE | 2018-03-27 15:19 | P.PN ---
Subjective Progress Note Date: 03/27/18 The patient is a 52 yo F with a PMH of asthma, hypothyroidism, GERD, and ITZ presented to the ED for worsening SOB and wheezing. The patient was recently admitted to [facility] for exacerbation of severe persistent bronchial asthma, purulent tracheobronchitis, and RLL bronchopneumonia. She had a prolonged hospital course and underwent a bronchoscopy with BAL which was positive for RSV and Neelima. The patient gradually improved and was discharged on 03/18/18 to home w/ a taper of steroids. She was seen for a f/u in the Pulmonary clinic and had some improvement since discharge but her symptoms subsequently persisted and she re-presented to the ED. She had SOB and wheezing with CXR negative for pneumonia. The patient was subsequently admitted for asthma exacerbation and stared on IV solumedrol and Duonebs. Pulmonary was consulted and recommended a repeat bronchoscopy which showed significant bronchial inflammation. Bronchial wash cultures negative thus far. The patient was seen and examined at the bedside. She continued to have dyspnea with nonproductive cough with wheezing. She denied fever, chills, nausea, vomiting, abdominal pain, diarrhea, or dysuria. Objective - Vital Signs Vital signs: Vital Signs Temp 98.6 F 03/27/18 07:00 Pulse 100 03/27/18 11:15 Resp 16 03/27/18 08:00 BP 135/76 03/27/18 07:00 Pulse Ox 97 03/27/18 07:00 Intake & Output 03/26/18 03/27/18 03/27/18 18:59 06:59 18:59 Intake Total 100 130 100 Balance 100 130 100 Intake: IV 0 Intake, IV Titration 100 130 100 Amount IV Fluid Continuation 1, 30 000 ml @ 0 mls/hr IV .[facility] Rx#:[id number] Piperacillin-Tazobactam 3 100 100 100 .375 gm In Sodium Chloride 0.9% 100 ml @ 25 mls/hr IVPB Q8HR [facility] Rx# :[id number] Other: Voiding Method Toilet - Exam General: Non-toxic, in no acute distress, appears stated age, morbidly obese HEENT: NC/AT, anicteric sclerae, moist conjunctiva, no lid-lag, PERRLA Cardiovascular: S1/S2 wnl, no murmurs, rubs, or gallops Lungs: Decreased breath sounds throughout with some wheezing and coarse breath sounds, normal respiratory effort, no accessory muscle use Abdominal: Soft, non-tender, non-distended, no guarding, rebound, or rigidity Skin: Warm, dry Extremities: No edema or contractures Psychiatric: Alert and oriented to person, place and time, appropriate affect Neuro: CN II-XII grossly intact, Strength 5/5 in all 4 extremities, Speech intact, Sensation to light touch grossly intact throughout - Labs CBC & Chem 7: 03/23/18 12:12 03/23/18 13:12 Labs: Abnormal Lab Results - Last 24 Hours (Table) 03/26/18 03/26/18 03/27/18 Range/Units 17:09 20:38 07:16 POC Glucose (mg/dL) 208 H 166 H 192 H (75-99) mg/dL 03/27/18 Range/Units 11:36 POC Glucose (mg/dL) 158 H (75-99) mg/dL Microbiology - Last 24 Hours (Table) 03/26/18 12:00 Gram Stain - Preliminary Bronchoalviolar Lavage - Right Bronchial Washings Culture - Preliminary 03/26/18 12:00 Fungal Culture - Preliminary Bronchoalviolar Lavage - Right 03/26/18 12:00 Acid Fast Bacilli Culture - Preliminary Bronchoalviolar Lavage - Right 03/23/18 12:12 Blood Culture - Preliminary Blood No Growth after 72 hours Assessment and Plan Plan: Acute asthma exacerbation w/ recent hospitalization for purulent tracheobronchitis and bronchopneumonia -Pulmonary following, recs appreciated -Underwent repeat bronchoscopy with BAL -Will c/w Solumedrol and Duonebs -C/w MELI with FS -C/w Singulair with Zosyn for now Chronic hypoxic respiratory failure with acute tracheobronchitis and suspected tracheomalacia -C/w supplemental oxygen Hypothyroidism -C/w home dose synthroid GERD -C/w protonix DVT//GI prophylaxis -IPCDs -Protonix Discussed with: Patient Anticipated discharge date: 03/30/[address]: Home A total of 35 minutes was spent on the care of this complex patient more than 50 % of the time was spent in counseling and care coordination.
[2018-03-27 17:29] LABS: Glucose,Whole Blood 181 mg/dL (75-99)
[2018-03-27 20:11] LABS: Glucose,Whole Blood 221 mg/dL (75-99)
[2018-03-28] MEDS: IPRATROPIUM-ALBUTEROL 3 ML NEB INHALATION SCH ×7 (00:39→23:41)
[2018-03-28] MEDS: methylPREDNISolone SOD SUCCI 125 MG/2 ML VIAL IV SCH ×4 (00:59→17:29)
[2018-03-28] MEDS: ACETAMINOPHEN TAB 325 MG TAB PO PRN ×2 (01:09→06:24)
[2018-03-28] MEDS: PIPERACILLIN-TAZOBACTAM 3.375 GM in SODIUM CHLORIDE 0.9% 100 ML IVPB SCH ×3 (05:59→21:28)
[2018-03-28] MEDS: PROMETHAZ-COD 6.25-10 MG/5 ML 5 ML CUP PO PRN ×2 (06:25→21:29)
[2018-03-28 07:19] LABS: Glucose,Whole Blood 190 mg/dL (75-99)
[2018-03-28] MEDS: FORMOTEROL FUMARATE 20 MCG/2 ML NEBU INHALATION SCH ×2 (08:54→20:44)
[2018-03-28] MEDS: BUDESONIDE 1 MG/2 ML NEBU INHALATION SCH ×2 (08:54→20:44)
[2018-03-28] MEDS: PANTOPRAZOLE 40 MG TABLET PO SCH (09:03)
[2018-03-28] MEDS: MONTELUKAST 10 MG TAB PO SCH (09:03)
[2018-03-28] MEDS: BENZONATATE 100 MG CAP PO SCH ×3 (09:03→21:22)
[2018-03-28] MEDS: guaiFENesin 600 MG TABLET.ER PO SCH ×2 (09:03→19:51)
[2018-03-28] MEDS: DILTIAZEM CD 300 MG CAP.ER.24H PO SCH (09:03)
[2018-03-28] MEDS: FERROUS SULFATE 325 MG TAB PO SCH ×2 (09:03→19:51)
[2018-03-28] MEDS: FLUTICASONE 50MCG/SPRAY NASAL 16GM EA NOSTRIL SCH (09:04)
[2018-03-28] MEDS: MAG HYDROX/AL HYDROX/SIMETH 30 ML, diphenhydrAMINE ELIXIR 75 MG, LIDOCAINE VISCOUS 30 ML PO PRN ×6 (09:05→13:43)
[2018-03-28] MEDS: INSULIN ASPART 100 UNIT/ML 1 ML 10 ML VIAL SQ SCH ×4 (09:11→21:22)
[2018-03-28] MEDS: VENLAFAXINE HCL ER 37.5 MG CAP PO SCH (10:34)
[2018-03-28] MEDS ORDERED: METOCLOPRAMIDE 10 MG TAB PO STA (11:30)
[2018-03-28 12:26] LABS: Glucose,Whole Blood 164 mg/dL (75-99)
--- NOTE | 2018-03-28 12:33 | P.PN ---
Subjective Progress Note Date: 03/28/18 The patient is a 52 yo F with a PMH of asthma, hypothyroidism, GERD, and ITZ presented to the ED for worsening SOB and wheezing. The patient was recently admitted to [facility] for exacerbation of severe persistent bronchial asthma, purulent tracheobronchitis, and RLL bronchopneumonia. She had a prolonged hospital course and underwent a bronchoscopy with BAL which was positive for RSV and Neelima. The patient gradually improved and was discharged on 03/18/18 to home w/ a taper of steroids. She was seen for a f/u in the Pulmonary clinic and had some improvement since discharge but her symptoms subsequently persisted and she re-presented to the ED. She had SOB and wheezing with CXR negative for pneumonia. The patient was subsequently admitted for asthma exacerbation and stared on IV solumedrol and Duonebs. Pulmonary was consulted and recommended a repeat bronchoscopy which showed significant bronchial inflammation. Bronchial wash cultures negative thus far. The patient was seen and examined at the bedside on 03/28/2018. The patient continues to have nonproductive cough with shortness of breath and wheezing. She hasn't had any further episodes of fever and denied chest pain, nausea, vomiting, abdominal pain, or dysuria. Objective - Vital Signs Vital signs: Vital Signs Temp 98.5 F 03/28/18 07:25 Pulse 100 03/28/18 12:26 Resp 12 03/28/18 08:00 BP 151/92 03/28/18 07:25 Pulse Ox 96 03/28/18 07:25 Intake & Output 03/27/18 03/28/18 03/28/18 18:59 06:59 18:59 Intake Total 100 100 Balance 100 100 Intake: Intake, IV Titration 100 100 Amount Piperacillin-Tazobactam 3 100 100 .375 gm In Sodium Chloride 0.9% 100 ml @ 25 mls/hr IVPB Q8HR [facility] Rx# :[id number] Other: Voiding Method Toilet # Voids 1 - Exam General: Non-toxic, in no acute distress, appears stated age, morbidly obese HEENT: NC/AT, anicteric sclerae, moist conjunctiva, no lid-lag, PERRLA Cardiovascular: S1/S2 wnl, no murmurs, rubs, or gallops Lungs: Decreased breath sounds throughout with some wheezing, normal respiratory effort, no accessory muscle use Abdominal: Soft, non-tender, non-distended, no guarding, rebound, or rigidity Skin: Warm, dry Extremities: No edema or contractures Psychiatric: Alert and oriented to person, place and time, appropriate affect Neuro: CN II-XII grossly intact, Strength 5/5 in all 4 extremities, Speech intact, Sensation to light touch grossly intact throughout - Labs CBC & Chem 7: 03/23/18 12:12 03/23/18 13:12 Labs: Abnormal Lab Results - Last 24 Hours (Table) 03/26/18 03/27/18 03/27/18 Range/Units 12:00 17:18 19:59 POC Glucose (mg/dL) 181 H 221 H (75-99) mg/dL Viral Test See Below H 03/28/18 03/28/18 Range/Units 07:08 12:14 POC Glucose (mg/dL) 190 H 164 H (75-99) mg/dL Viral Test Microbiology - Last 24 Hours (Table) 03/26/18 12:00 Acid Fast Bacilli Smear - Final Bronchoalviolar Lavage - Right Acid Fast Bacilli Culture - Preliminary 03/23/18 12:12 Blood Culture - Preliminary Blood No Growth after 96 hours Assessment and Plan Plan: Acute asthma exacerbation w/ recent hospitalization for purulent tracheobronchitis and bronchopneumonia -Pulmonary following, recs appreciated -Underwent repeat bronchoscopy with BAL -Will c/w Solumedrol and Duonebs -C/w MELI with FS -C/w Singulair with Zosyn for now Chronic hypoxic respiratory failure with acute tracheobronchitis and suspected tracheomalacia -C/w supplemental oxygen Hypothyroidism -C/w home dose synthroid GERD -C/w protonix DVT//GI prophylaxis -IPCDs -Protonix Discussed with: Patient Anticipated discharge date: 03/30/[address]: Home A total of 35 minutes was spent on the care of this complex patient more than 50 % of the time was spent in counseling and care coordination.
--- NOTE | 2018-03-28 13:30 | P.PN ---
Subjective Progress Note Date: 03/28/18 Principal diagnosis: Exacerbation of severe persistent asthma with purulent tracheobronchitis. This is a 52-year-old white female patient with medical history of severe persistent crying bronchial asthma, GERD, obstructive sleep apnea on CPAP therapy, morbid obesity, hypothyroidism, vitamin D deficiency, history of viral cardiomyopathy, DJD, there was recently hospitalized for acute exacerbation of chronic bronchial asthma, purulent tracheobronchitis, bronchopneumonia in the right lower lobe. required a bronchoscopy with bronchoalveolar lavage, and respiratory syncytial virus was positive in the bronchial lavage. Cytology was negative. Patient had a extended hospitalization, she finally started to show some improvement, patient was discharged home on 03/18/2018 she had been seen in follow-up at the pulmonary clinic by Dr. Christensen on 03/21/2018. She was still not back to her baseline, she was completing her prednisone taper, was sent home with nebulized treatments, overall she was improving. Patient came back to the hospital on 03/23/2018 with complaints of worsening shortness of breath, wheezing, chest congestion with production of yellow orange sputum. Chest x-ray completed on admission was negative for any acute cardiopulmonary process. Initial blood work showed white count of 12.4, hemoglobin of 13.9, actually lites and renal profile were within normal limits, troponin was negative 1, patient has been afebrile, patient was discharged home on home oxygen and she remains on 3 L per nasal cannula, bronchial wash cultures were reviewed from previous bronchoscopy on 08/11/2018 and showed only Neelima albicans. Patient was started on IV Solu-Medrol at 125 mg every 12 hours, nebulized bronchodilators, Pulmicort and Perforomist. On 03/25/2018 patient seen in follow-up on medical surgical floor. She is still quite dyspneic, lung sounds are diminished, and patient has frequent bouts of coughing, not able to bring up any phlegm, no fever or chills, she remains on oxygen, 3 L per nasal cannula pulse ox is 96%, afebrile, patient is being treated with IV Solu-Medrol, yesterday we added Zosyn for empiric antibiotic coverage, blood culture showed no growth, patient is receiving nebulized bronchodilators, Perforomist and Pulmicort. Very little improvement in the way of symptoms, we'll schedule the patient for bronchoscopy with BAL tomorrow with Dr. Quiñones. On 03/26/2018 patient seen in follow-up on medical surgical floor. She is resting in bed, she states she is quite dyspneic, still coughing quite a bit, not able to bring up any sputum, lung sounds are diminished, with scattered wheezes. Patient is on empiric antibiotics, Solu-Medrol, Pulmicort and Perforomist and cough syrup. No labs today, no new chest x-ray. Did have a low -grade temp last night, with a T-max of 100.3F. Antibiotic coverage in the form of Zosyn. On March 27, 2018 patient seen in follow-up on medical surgical floor. She sat in the chair, still complaining of dyspnea, often, lung sounds are diminished, with some end expiratory wheezing. Patient is on 3 L per nasal cannula, her pulse ox is 93%, afebrile. Bronchial wash cultures are negative to date. Continues on empiric antibiotics including Zosyn, she is on empiric antibiotics, IV steroids, will continue with current medical treatment, status post bronchoscopy with BAL yesterday, on 03/26/2018. Still quite bronchospastic and dyspneic. On 03/28/2018 patient seen in follow-up on medical surgical floor. She is sleeping comfortably in a recliner, in no acute distress, she is on 3 L per nasal cannula, her pulse ox is 96%, she is afebrile. We did wake her up to assess her. States she still dyspneic's, still bronchospastic and coughing, not significantly better. Patient's bronchial wash for viral culture detected herpes simplex type I, and. Influenza 3. Bronchial wash preliminary Gram stain showed rare gram-positive cocci, I'll cultures are pending. She remains on Zosyn, IV steroids, Solu-Medrol 60 mg every 6 hours, cough syrup, Pulmicort and Perforomist, and she is maximized on medical treatment. Objective - Vital Signs Vital signs: Vital Signs Temp 98.5 F 03/28/18 07:25 Pulse 100 03/28/18 12:26 Resp 12 03/28/18 08:00 BP 151/92 03/28/18 07:25 Pulse Ox 96 03/28/18 07:25 Intake & Output 03/27/18 03/28/1819 18:59 06:59 18:59 Intake Total 100 100 Balance 100 100 Intake: Intake, IV Titration 100 100 Amount Piperacillin-Tazobactam 3 100 100 .375 gm In Sodium Chloride 0.9% 100 ml @ 25 mls/hr IVPB Q8HR [facility] Rx# :[id number] Other: Voiding Method Toilet # Voids 1 - Exam GENERAL EXAM: Alert, pleasant, 52-year-old obese white female on 3 L per nasal cannula, and frequent episodes of coughing comfortable in no apparent distress. HEAD: Normocephalic/atraumatic. EYES: Normal reaction of pupils, equal size. Conjunctiva pink, sclera white. NOSE: Clear with pink turbinates. THROAT: No erythema or exudates. NECK: No masses, no JVD, no thyroid enlargement, no adenopathy. CHEST: No chest wall deformity. Symmetrical expansion. LUNGS: Equal air entry with diffuse wheezes, and diminished air entry bilaterally CVS: Regular rate and rhythm, normal S1 and S2, no gallops, no murmurs, no rubs ABDOMEN: Soft, nontender. No hepatosplenomegaly, normal bowel sounds, no guarding or rigidity. EXTREMITIES: No clubbing, no edema, no cyanosis, 2+ pulses and upper and lower extremities. MUSCULOSKELETAL: Muscle strength and tone normal. SPINE: No scoliosis or deformity SKIN: No rashes CENTRAL NERVOUS SYSTEM: Alert and oriented -3. No focal deficits, tone is normal in all 4 extremities. PSYCHIATRIC: Alert and oriented -3. Appropriate affect. Intact judgment and insight. - Labs CBC & Chem 7: 03/23/18 12:12 03/23/18 13:12 Labs: Abnormal Lab Results - Last 24 Hours (Table) 03/26/18 03/27/18 03/27/18 Range/Units 12:00 17:18 19:59 POC Glucose (mg/dL) 181 H 221 H (75-99) mg/dL Viral Test See Below H 03/28/18 03/28/18 Range/Units 07:08 12:14 POC Glucose (mg/dL) 190 H 164 H (75-99) mg/dL Viral Test Microbiology - Last 24 Hours (Table) 03/26/18 12:00 Acid Fast Bacilli Smear - Final Bronchoalviolar Lavage - Right Acid Fast Bacilli Culture - Preliminary 03/23/18 12:12 Blood Culture - Preliminary Blood No Growth after 96 hours Assessment and Plan Plan: Assessment: #1. Acute exacerbation of severe persistent asthma, related to viral infection , bronchial wash cultures were positive for parainfluenza 3, and herpes simplex type I. Chest x-ray and CT chest did not show any clear evidence of pneumonia. #2. Chronic hypoxemic respiratory failure related to recent episode of tracheobronchitis, RSV, and the possibility of right lower lobe bronchopneumonia #3. Recent extended hospitalization related to the above, the patient underwent bronchoscopy with BAL, cultures positive for Neelima albicans and respiratory syncytial virus #4. Acute tracheobronchitis, and tracheobronchomalacia #5. Gastroesophageal reflux disease #6. Sleep apnea syndrome, on CPAP therapy #7. Morbid obesity #8. Hypothyroidism #9. Degenerative joint disease #10. Vitamin D deficiency #11. History of viral cardiomyopathy Plan: Bronchial wash viral culture results were noted, same medical treatment, continue current antibiotic coverage, final bronchial wash culture is pending. Still bronchospastic, and dyspneic, he with IV steroids, nebulized bronchodilators, Pulmicort and Perforomist. We will continue to follow I performed a history & physical examination of the patient and discussed their management with my nurse practitioner, Amanda Stover. I reviewed the nurse practitioner's note and agree with the documented findings and plan of care. Lung sounds are positive for diffuse wheezes throughout the lung luevano. The findings and the impression was discussed with the patient. I attest to the documentation by the nurse practitioner. Time with Patient: Less than 30
[2018-03-28 17:30] LABS: Glucose,Whole Blood 154 mg/dL (75-99)
[2018-03-28] MEDS: BENZOCAINE/MENTHOL LOZENG 1 EACH LOZENGE MUCOUS MEM PRN (19:52)
[2018-03-28 21:07] LABS: Glucose,Whole Blood 245 mg/dL (75-99)
[2018-03-29] MEDS: methylPREDNISolone SOD SUCCI 125 MG/2 ML VIAL IV SCH ×5 (01:06→23:48)
[2018-03-29] MEDS: MAG HYDROX/AL HYDROX/SIMETH 30 ML, diphenhydrAMINE ELIXIR 75 MG, LIDOCAINE VISCOUS 30 ML PO PRN ×12 (01:11→19:48)
[2018-03-29] MEDS: BENZOCAINE/MENTHOL LOZENG 1 EACH LOZENGE MUCOUS MEM PRN ×3 (05:12→22:16)
[2018-03-29] MEDS: PIPERACILLIN-TAZOBACTAM 3.375 GM in SODIUM CHLORIDE 0.9% 100 ML IVPB SCH ×3 (05:16→22:08)
[2018-03-29] MEDS: IPRATROPIUM-ALBUTEROL 3 ML NEB INHALATION SCH ×5 (05:39→20:29)
[2018-03-29 07:31] LABS: Glucose,Whole Blood 181 mg/dL (75-99)
[2018-03-29] MEDS: BUDESONIDE 1 MG/2 ML NEBU INHALATION SCH ×2 (07:32→20:29)
[2018-03-29] MEDS: FORMOTEROL FUMARATE 20 MCG/2 ML NEBU INHALATION SCH ×2 (07:32→20:29)
[2018-03-29] MEDS: INSULIN ASPART 100 UNIT/ML 1 ML 10 ML VIAL SQ SCH ×4 (08:26→22:05)
[2018-03-29] MEDS: FLUTICASONE 50MCG/SPRAY NASAL 16GM EA NOSTRIL SCH (10:08)
[2018-03-29] MEDS: BENZONATATE 100 MG CAP PO SCH ×3 (10:09→22:04)
[2018-03-29] MEDS: VENLAFAXINE HCL ER 37.5 MG CAP PO SCH (10:09)
[2018-03-29] MEDS: DILTIAZEM CD 300 MG CAP.ER.24H PO SCH (10:09)
[2018-03-29] MEDS: FERROUS SULFATE 325 MG TAB PO SCH ×2 (10:09→19:48)
[2018-03-29] MEDS: MONTELUKAST 10 MG TAB PO SCH (10:09)
[2018-03-29] MEDS: guaiFENesin 600 MG TABLET.ER PO SCH ×2 (10:09→19:48)
[2018-03-29] MEDS: PANTOPRAZOLE 40 MG TABLET PO SCH (10:10)
[2018-03-29 12:39] LABS: Glucose,Whole Blood 140 mg/dL (75-99)
--- NOTE | 2018-03-29 13:22 | P.PN ---
Subjective Progress Note Date: 03/29/18 Principal diagnosis: Exacerbation of severe persistent asthma with purulent tracheobronchitis. This is a 52-year-old white female patient with medical history of severe persistent crying bronchial asthma, GERD, obstructive sleep apnea on CPAP therapy, morbid obesity, hypothyroidism, vitamin D deficiency, history of viral cardiomyopathy, DJD, there was recently hospitalized for acute exacerbation of chronic bronchial asthma, purulent tracheobronchitis, bronchopneumonia in the right lower lobe. required a bronchoscopy with bronchoalveolar lavage, and respiratory syncytial virus was positive in the bronchial lavage. Cytology was negative. Patient had a extended hospitalization, she finally started to show some improvement, patient was discharged home on 03/18/2018 she had been seen in follow-up at the pulmonary clinic by Dr. Christensen on 03/21/2018. She was still not back to her baseline, she was completing her prednisone taper, was sent home with nebulized treatments, overall she was improving. Patient came back to the hospital on 03/23/2018 with complaints of worsening shortness of breath, wheezing, chest congestion with production of yellow orange sputum. Chest x-ray completed on admission was negative for any acute cardiopulmonary process. Initial blood work showed white count of 12.4, hemoglobin of 13.9, actually lites and renal profile were within normal limits, troponin was negative 1, patient has been afebrile, patient was discharged home on home oxygen and she remains on 3 L per nasal cannula, bronchial wash cultures were reviewed from previous bronchoscopy on 08/11/2018 and showed only Neelima albicans. Patient was started on IV Solu-Medrol at 125 mg every 12 hours, nebulized bronchodilators, Pulmicort and Perforomist. On 03/25/2018 patient seen in follow-up on medical surgical floor. She is still quite dyspneic, lung sounds are diminished, and patient has frequent bouts of coughing, not able to bring up any phlegm, no fever or chills, she remains on oxygen, 3 L per nasal cannula pulse ox is 96%, afebrile, patient is being treated with IV Solu-Medrol, yesterday we added Zosyn for empiric antibiotic coverage, blood culture showed no growth, patient is receiving nebulized bronchodilators, Perforomist and Pulmicort. Very little improvement in the way of symptoms, we'll schedule the patient for bronchoscopy with BAL tomorrow with Dr. Quiñones. On 03/26/2018 patient seen in follow-up on medical surgical floor. She is resting in bed, she states she is quite dyspneic, still coughing quite a bit, not able to bring up any sputum, lung sounds are diminished, with scattered wheezes. Patient is on empiric antibiotics, Solu-Medrol, Pulmicort and Perforomist and cough syrup. No labs today, no new chest x-ray. Did have a low -grade temp last night, with a T-max of 100.3F. Antibiotic coverage in the form of Zosyn. On March 27, 2018 patient seen in follow-up on medical surgical floor. She sat in the chair, still complaining of dyspnea, often, lung sounds are diminished, with some end expiratory wheezing. Patient is on 3 L per nasal cannula, her pulse ox is 93%, afebrile. Bronchial wash cultures are negative to date. Continues on empiric antibiotics including Zosyn, she is on empiric antibiotics, IV steroids, will continue with current medical treatment, status post bronchoscopy with BAL yesterday, on 03/26/2018. Still quite bronchospastic and dyspneic. On 03/28/2018 patient seen in follow-up on medical surgical floor. She is sleeping comfortably in a recliner, in no acute distress, she is on 3 L per nasal cannula, her pulse ox is 96%, she is afebrile. We did wake her up to assess her. States she still dyspneic's, still bronchospastic and coughing, not significantly better. Patient's bronchial wash for viral culture detected herpes simplex type I, and. Influenza 3. Bronchial wash preliminary Gram stain showed rare gram-positive cocci, I'll cultures are pending. She remains on Zosyn, IV steroids, Solu-Medrol 60 mg every 6 hours, cough syrup, Pulmicort and Perforomist, and she is maximized on medical treatment. On 03/29/2018 patient seen in follow-up on medical surgical floor. Remains on 3 L per nasal cannula, her pulse ox is 92%, no fever or chills, hemodynamically she is stable. She is calm and comfortable, sitting up in the recliner in no acute distress, lung sounds reveal better air entry bilaterally, coarse breath sounds, and patient does have cough with production of small amount of brownish colored sputum bronchial wash cultures revealed evidence of herpes simplex type I and parainfluenza 3. Patient remains on antibiotic coverage in the form of Zosyn, high-dose IV steroids, Pulmicort and Perforomist. Patient is improving, much less bronchospastic, and dyspnec. Bronchial wash microbiology cultures are negative thus far. Blood cultures have been negative. Objective - Vital Signs Vital signs: Vital Signs Temp 98.6 F 03/29/18 08:08 Pulse 86 03/29/18 12:20 Resp 20 03/29/18 08:45 BP 131/74 03/29/18 08:08 Pulse Ox 92 L 03/29/18 00:14 Intake & Output 03/28/18 03/29/18 03/29/18 18:59 06:59 18:59 Intake Total 200 Balance 200 Intake: Intake, IV Titration 200 Amount Piperacillin-Tazobactam 3 200 .375 gm In Sodium Chloride 0.9% 100 ml @ 25 mls/hr IVPB Q8H [facility] Rx#: [id number] Other: Voiding Method Toilet # Voids 2 2 - Exam GENERAL EXAM: Alert, pleasant, 52-year-old obese white female on 3 L per nasal cannula, and frequent episodes of coughing comfortable in no apparent distress. HEAD: Normocephalic/atraumatic. EYES: Normal reaction of pupils, equal size. Conjunctiva pink, sclera white. NOSE: Clear with pink turbinates. THROAT: No erythema or exudates. NECK: No masses, no JVD, no thyroid enlargement, no adenopathy. CHEST: No chest wall deformity. Symmetrical expansion. LUNGS: Equal air entry with diffuse wheezes, and diminished air entry bilaterally CVS: Regular rate and rhythm, normal S1 and S2, no gallops, no murmurs, no rubs ABDOMEN: Soft, nontender. No hepatosplenomegaly, normal bowel sounds, no guarding or rigidity. EXTREMITIES: No clubbing, no edema, no cyanosis, 2+ pulses and upper and lower extremities. MUSCULOSKELETAL: Muscle strength and tone normal. SPINE: No scoliosis or deformity SKIN: No rashes CENTRAL NERVOUS SYSTEM: Alert and oriented -3. No focal deficits, tone is normal in all 4 extremities. PSYCHIATRIC: Alert and oriented -3. Appropriate affect. Intact judgment and insight. - Labs CBC & Chem 7: 01/26/19 12:12 03/23/18 13:12 Labs: Abnormal Lab Results - Last 24 Hours (Table) 03/28/18 03/28/18 03/29/18 Range/Units 17:17 20:49 07:18 POC Glucose (mg/dL) 154 H 245 H 181 H (75-99) mg/dL 03/29/18 Range/Units 12:28 POC Glucose (mg/dL) 140 H (75-99) mg/dL Microbiology - Last 24 Hours (Table) 03/23/18 12:12 Blood Culture - Preliminary Blood No Growth after 120 hours 03/26/18 12:00 Gram Stain - Final Bronchoalviolar Lavage - Right Bronchial Washings Culture - Final Assessment and Plan Plan: Assessment: #1. Acute exacerbation of severe persistent asthma, related to viral infection , bronchial wash cultures were positive for parainfluenza 3, and herpes simplex type I. Chest x-ray and CT chest did not show any clear evidence of pneumonia. #2. Chronic hypoxemic respiratory failure related to recent episode of tracheobronchitis, RSV, and the possibility of right lower lobe bronchopneumonia #3. Recent extended hospitalization related to the above, the patient underwent bronchoscopy with BAL, cultures positive for Neelima albicans and respiratory syncytial virus #4. Acute tracheobronchitis, and tracheobronchomalacia #5. Gastroesophageal reflux disease #6. Sleep apnea syndrome, on CPAP therapy #7. Morbid obesity #8. Hypothyroidism #9. Degenerative joint disease #10. Vitamin D deficiency #11. History of viral cardiomyopathy Plan: Continue with current medical treatment, same dose IV steroids, empiric antibiotics, viral cultures from the bronchial wash revealed herpes simplex type I, and parainfluenza virus. Continue with nebulized bronchodilators, encouraged patient to get up and ambulate about the room, overall she sounds better on today's exam, improved air entry noted bilaterally, with coarse sounds , patient does have a productive cough. No fever or chills, we asked for a midline catheter placement for a possibility of sending patient home on IV antibiotics. I performed a history & physical examination of the patient and discussed their management with my nurse practitioner, Amanda Stover. I reviewed the nurse practitioner's note and agree with the documented findings and plan of care. Lung sounds are positive for diffuse wheezes throughout the lung luevano. The findings and the impression was discussed with the patient. I attest to the documentation by the nurse practitioner. Time with Patient: Less than 30
[2018-03-29 14:17] VITALS: BMI 43.7
--- NOTE | 2018-03-29 16:08 | P.PN ---
Subjective Progress Note Date: 03/29/18 The patient is a 52 yo F with a PMH of asthma, hypothyroidism, GERD, and ITZ presented to the ED for worsening SOB and wheezing. The patient was recently admitted to [facility] for exacerbation of severe persistent bronchial asthma, purulent tracheobronchitis, and RLL bronchopneumonia. She had a prolonged hospital course and underwent a bronchoscopy with BAL which was positive for RSV and Neelima. The patient gradually improved and was discharged on 03/18/18 to home w/ a taper of steroids. She was seen for a f/u in the Pulmonary clinic and had some improvement since discharge but her symptoms subsequently persisted and she re-presented to the ED. She had SOB and wheezing with CXR negative for pneumonia. The patient was subsequently admitted for asthma exacerbation and stared on IV solumedrol and Duonebs. Pulmonary was consulted and recommended a repeat bronchoscopy which showed significant bronchial inflammation. Bronchial wash cultures negative thus far. Patient was seen and examined at the bedside. Patient notes that her cough is somewhat productive and she is bringing up brownish phlegm though continues to have wheezing and requiring supplemental oxygen. She denied chest pain, fever, chills, nausea, or vomiting. She also endorsed a left second finger nail bed ulcer ongoing for the past few days. She does not recall any trauma to the area , and notes that it is tender. Objective - Vital Signs Vital signs: Vital Signs Temp 98.6 F 03/29/18 08:08 Pulse 86 03/29/18 12:20 Resp 20 03/29/18 08:45 BP 131/74 03/29/18 08:08 Pulse Ox 92 L 03/29/18 00:14 Intake & Output 03/28/18 03/29/18 03/29/18 18:59 06:59 18:59 Intake Total 200 Balance 200 Weight 101.437 kg Intake: Intake, IV Titration 200 Amount Piperacillin-Tazobactam 3 200 .375 gm In Sodium Chloride 0.9% 100 ml @ 25 mls/hr IVPB Q8H ON LICENSE OF [facility] Rx#: [id number] Other: Voiding Method Toilet # Voids 2 2 - Exam General: Non-toxic, in no acute distress, appears stated age, morbidly obese HEENT: NC/AT, anicteric sclerae, moist conjunctiva, no lid-lag, PERRLA Cardiovascular: S1/S2 wnl, no murmurs, rubs, or gallops Lungs: Decreased breath sounds throughout with some wheezing, normal respiratory effort, no accessory muscle use Abdominal: Soft, non-tender, non-distended, no guarding, rebound, or rigidity Skin: Warm, dry Extremities: No edema or contractures, left second finger nail bed small ulcer with no underlying fluid collection, with some drainage, tender to palpation Psychiatric: Alert and oriented to person, place and time, appropriate affect Neuro: CN II-XII grossly intact, Strength 5/5 in all 4 extremities, Speech intact, Sensation to light touch grossly intact throughout - Labs CBC & Chem 7: 03/23/18 12:12 03/23/18 13:12 Labs: Abnormal Lab Results - Last 24 Hours (Table) 03/28/18 03/28/18 03/29/18 Range/Units 17:17 20:49 07:18 POC Glucose (mg/dL) 154 H 245 H 181 H (75-99) mg/dL 03/29/18 Range/Units 12:28 POC Glucose (mg/dL) 140 H (75-99) mg/dL Microbiology - Last 24 Hours (Table) 03/23/18 12:12 Blood Culture - Final Blood No Growth after 144 hours 03/26/18 12:00 Gram Stain - Final Bronchoalviolar Lavage - Right Bronchial Washings Culture - Final Assessment and Plan Plan: Acute asthma exacerbation w/ recent hospitalization for purulent tracheobronchitis and bronchopneumonia -Pulmonary following, recs appreciated -Underwent repeat bronchoscopy with BAL -Will c/w Solumedrol and Duonebs -C/w MELI with FS -C/w Singulair with Zosyn for now -Status post midline placement today Chronic hypoxic respiratory failure with acute tracheobronchitis and suspected tracheomalacia -C/w supplemental oxygen Acute paronychia -Topical mupirocin for now Hypothyroidism -C/w home dose synthroid GERD -C/w protonix DVT//GI prophylaxis -IPCDs -Protonix Discussed with: Patient Anticipated discharge date: 04/01/[address]: Home A total of 35 minutes was spent on the care of this complex patient more than 50 % of the time was spent in counseling and care coordination.
[2018-03-29 17:30] LABS: Glucose,Whole Blood 205 mg/dL (75-99)
[2018-03-29] MEDS: MUPIROCIN 2% OINT 22 GM TUBE TOPICAL SCH ×2 (18:00→22:05)
[2018-03-29 20:39] LABS: Glucose,Whole Blood 199 mg/dL (75-99)
[2018-03-29] MEDS: PROMETHAZ-COD 6.25-10 MG/5 ML 5 ML CUP PO PRN (23:51)
[2018-03-30] MEDS: IPRATROPIUM-ALBUTEROL 3 ML NEB INHALATION SCH ×6 (00:44→19:01)
[2018-03-30] MEDS: methylPREDNISolone SOD SUCCI 125 MG/2 ML VIAL IV SCH ×3 (05:20→17:31)
[2018-03-30] MEDS: PIPERACILLIN-TAZOBACTAM 3.375 GM in SODIUM CHLORIDE 0.9% 100 ML IVPB SCH ×3 (05:22→22:22)
[2018-03-30] MEDS: BENZOCAINE/MENTHOL LOZENG 1 EACH LOZENGE MUCOUS MEM PRN ×3 (05:26→22:22)
[2018-03-30 07:07] LABS: Glucose,Whole Blood 205 mg/dL (75-99)
[2018-03-30] MEDS: MONTELUKAST 10 MG TAB PO SCH (08:01)
[2018-03-30] MEDS: BENZONATATE 100 MG CAP PO SCH ×3 (08:01→22:22)
[2018-03-30] MEDS: FLUTICASONE 50MCG/SPRAY NASAL 16GM EA NOSTRIL SCH (08:01)
[2018-03-30] MEDS: FERROUS SULFATE 325 MG TAB PO SCH ×2 (08:01→22:22)
[2018-03-30] MEDS: DILTIAZEM CD 300 MG CAP.ER.24H PO SCH (08:01)
[2018-03-30] MEDS: VENLAFAXINE HCL ER 37.5 MG CAP PO SCH (08:01)
[2018-03-30] MEDS: MUPIROCIN 2% OINT 22 GM TUBE TOPICAL SCH ×3 (08:01→22:23)
[2018-03-30] MEDS: PANTOPRAZOLE 40 MG TABLET PO SCH (08:01)
[2018-03-30] MEDS: guaiFENesin 600 MG TABLET.ER PO SCH ×2 (08:01→22:22)
[2018-03-30] MEDS: INSULIN ASPART 100 UNIT/ML 1 ML 10 ML VIAL SQ SCH ×4 (08:02→22:23)
[2018-03-30] MEDS: MAG HYDROX/AL HYDROX/SIMETH 30 ML, diphenhydrAMINE ELIXIR 75 MG, LIDOCAINE VISCOUS 30 ML PO PRN ×9 (08:03→17:32)
[2018-03-30] MEDS: BUDESONIDE 1 MG/2 ML NEBU INHALATION SCH ×2 (08:41→19:01)
[2018-03-30] MEDS: FORMOTEROL FUMARATE 20 MCG/2 ML NEBU INHALATION SCH ×2 (08:42→19:01)
[2018-03-30 11:12] LABS: Glucose,Whole Blood 204 mg/dL (75-99)
--- NOTE | 2018-03-30 13:43 | PN ---
PROGRESS NOTE DATE OF SERVICE: 03/30/2018 This is a 52-year-old female with a history of chronic bronchial asthma. She has a history of severe persistent chronic bronchial asthma. She has been in and out of the hospital a couple times now. She underwent bronchoscopy recently. It was positive for both herpes simplex type 1 as well as parainfluenza virus type 3. Previous bronchoscopy revealed evidence of RSV. There was no clear-cut evidence of pneumonia. On her bronchoscopy, her airways were inflamed. She had diffuse erythema and hyperemia of the airways. There was some purulence noted. She had a BAL of the right middle lobe. In addition, she has a history of hypoxemic respiratory failure, purulent tracheobronchitis, GERD, sleep apnea syndrome, morbid obesity, hypothyroidism, DJD, vitamin D deficiency and history of viral cardiomyopathy. She is only very slowly getting better. She still has she had significant shortness of breath, cough, and wheezing. Current vital signs are reviewed. Temperature is 98.6, heart rate 92, respiratory rate 16, blood pressure 147/82, mean 103, 3 L saturation 94%. Appears no acute distress/ HEENT examination is grossly unremarkable. Mucous membranes are moist. No oral lesions. Neck is supple. Full range of motion. No adenopathy or thyromegaly. Cardiovascular examination reveals regular rhythm and rate. S1, S2 normal. No S3, S4, or murmur. Heart sounds are a bit distant. Lungs reveal improved breath sounds. A few scattered rhonchi and wheezes are noted. When she takes a deep breath, she does cough. She does have expiratory wheezes on forced maneuver. Breath sounds equal bilaterally but diminished throughout. No crackles. Abdomen is soft, but obese. Bowel sounds are heard. Extremities are intact. No cyanosis, clubbing, or edema. Skin without rash. Neurologic examination is brief but nonfocal. Labs are reviewed. Nothing new to report. Microbiologic studies are thus far still negative. No recent x-rays to report. Medications are reviewed. IMPRESSION: 1. Acute exacerbation of severe persistent chronic bronchial asthma, triggered by viral infections, most recently per influenza virus type 3 and herpes simplex virus type 1 and previously by respiratory virus. Bacteriologic studies have been negative. She has bronchoscopy x2. 2. Chronic hypoxemic respiratory failure secondary to the above. 3. Recent extended hospitalization secondary to asthma, complicated by respiratory cystic virus infection. 4. Acute tracheobronchitis with a component of tracheobronchomalacia. 5. Gastroesophageal reflux disease. 6. Sleep apnea syndrome, currently on CPAP therapy. 7. Morbid obesity. 8. Hypothyroidism. 9. Degenerative joint disease. 10.Vitamin D deficiency. 11.History of viral cardiomyopathy. PLAN: The patient is doing better. She remains on good medications. Will continue to follow. Her prognosis is guarded. She asked a lot of questions today. I answered all of her to her satisfaction. The hopeful thing is for her to go home on Sunday. No additional recommendations are made. Will continue to follow. Prognosis is guarded. Will continue to follow up on her bronch specimens. MMODL / IJN: [id number] /
--- NOTE | 2018-03-30 15:44 | P.PN ---
Subjective Progress Note Date: 03/30/18 The patient is a 52 yo F with a PMH of asthma, hypothyroidism, GERD, and ITZ presented to the ED for worsening SOB and wheezing. The patient was recently admitted to [facility] for exacerbation of severe persistent bronchial asthma, purulent tracheobronchitis, and RLL bronchopneumonia. She had a prolonged hospital course and underwent a bronchoscopy with BAL which was positive for RSV and Neelima. The patient gradually improved and was discharged on 03/18/18 to home w/ a taper of steroids. She was seen for a f/u in the Pulmonary clinic and had some improvement since discharge but her symptoms subsequently persisted and she re-presented to the ED. She had SOB and wheezing with CXR negative for pneumonia. The patient was subsequently admitted for asthma exacerbation and stared on IV solumedrol and Duonebs. Pulmonary was consulted and recommended a repeat bronchoscopy which showed significant bronchial inflammation. Bronchial wash cultures negative thus far. Patient was seen and examined at the bedside. The patient notes mild improvement in her shortness of breath and wheezing. She otherwise denied fever , chills, chest pain, nausea, or vomiting. Objective - Vital Signs Vital signs: Vital Signs Temp 98.4 F 03/30/18 14:21 Pulse 93 03/30/18 15:27 Resp 18 03/30/18 15:27 BP 134/78 03/30/18 14:21 Pulse Ox 93 L 03/30/18 15:27 Intake & Output 03/29/18 03/30/18 03/30/18 18:59 06:59 18:59 Intake Total 240 300 100 Balance 240 300 100 Weight 101.437 kg Intake: Intake, IV Titration 200 100 Amount Piperacillin-Tazobactam 3 200 100 .375 gm In Sodium Chloride 0.9% 100 ml @ 25 mls/hr IVPB Q8H [facility] Rx#: [id number] Oral 240 100 Other: Voiding Method Toilet # Voids 2 2 2 - Exam General: Non-toxic, in no acute distress, appears stated age, morbidly obese HEENT: NC/AT, anicteric sclerae, moist conjunctiva, no lid-lag, PERRLA Cardiovascular: S1/S2 wnl, no murmurs, rubs, or gallops Lungs: Improved air entry carolyn w/ some wheezing, normal respiratory effort, no accessory muscle use Abdominal: Soft, non-tender, non-distended, no guarding, rebound, or rigidity Skin: Warm, dry Extremities: No edema or contractures, left second finger nail bed small ulcer with no underlying fluid collection, with some drainage, tender to palpation Psychiatric: Alert and oriented to person, place and time, appropriate affect Neuro: CN II-XII grossly intact, Strength 5/5 in all 4 extremities, Speech intact, Sensation to light touch grossly intact throughout - Labs CBC & Chem 7: 03/23/18 12:12 03/23/18 13:12 Labs: Abnormal Lab Results - Last 24 Hours (Table) 03/29/18 03/29/18 03/30/18 Range/Units 17:19 20:27 06:56 POC Glucose (mg/dL) 205 H 199 H 205 H (75-99) mg/dL 03/30/18 Range/Units 11:01 POC Glucose (mg/dL) 204 H (75-99) mg/dL Microbiology - Last 24 Hours (Table) 03/23/18 12:12 Blood Culture - Final Blood No Growth after 144 hours Assessment and Plan Plan: Acute asthma exacerbation w/ recent hospitalization for purulent tracheobronchitis and bronchopneumonia -Pulmonary following, recs appreciated -Underwent repeat bronchoscopy with BAL -Will c/w Solumedrol and Duonebs -C/w MELI with FS -C/w Singulair with Zosyn for now -Status post midline placement with plan to be discharged home on IV steroids and Abxs Chronic hypoxic respiratory failure with acute tracheobronchitis and suspected tracheomalacia -C/w supplemental oxygen Acute paronychia -Topical mupirocin for now Hypothyroidism -C/w home dose synthroid GERD -C/w protonix DVT//GI prophylaxis -IPCDs -Protonix Discussed with: Patient Anticipated discharge date: 04/01/[address]: Home A total of 35 minutes was spent on the care of this complex patient more than 50 % of the time was spent in counseling and care coordination.
[2018-03-30 17:01] LABS: Glucose,Whole Blood 230 mg/dL (75-99)
[2018-03-30 19:44] LABS: Glucose,Whole Blood 225 mg/dL (75-99)
[2018-03-30] MEDS: PROMETHAZ-COD 6.25-10 MG/5 ML 5 ML CUP PO PRN (22:22)
[2018-03-31] MEDS: IPRATROPIUM-ALBUTEROL 3 ML NEB INHALATION SCH ×4 (00:37→11:23)
[2018-03-31] MEDS: methylPREDNISolone SOD SUCCI 125 MG/2 ML VIAL IV SCH ×2 (01:26→06:01)
[2018-03-31] MEDS: BENZOCAINE/MENTHOL LOZENG 1 EACH LOZENGE MUCOUS MEM PRN ×3 (01:29→12:21)
[2018-03-31] MEDS: PIPERACILLIN-TAZOBACTAM 3.375 GM in SODIUM CHLORIDE 0.9% 100 ML IVPB SCH (06:01)
[2018-03-31] MEDS: FORMOTEROL FUMARATE 20 MCG/2 ML NEBU INHALATION SCH (06:43)
[2018-03-31] MEDS: BUDESONIDE 1 MG/2 ML NEBU INHALATION SCH (06:43)
[2018-03-31 07:25] VITALS: BP 151/77; RESP 14; TEMP 98.3
[2018-03-31] MEDS: FLUTICASONE 50MCG/SPRAY NASAL 16GM EA NOSTRIL SCH (07:29)
[2018-03-31] MEDS: MAG HYDROX/AL HYDROX/SIMETH 30 ML, diphenhydrAMINE ELIXIR 75 MG, LIDOCAINE VISCOUS 30 ML PO PRN ×6 (07:30→12:21)
[2018-03-31] MEDS: MUPIROCIN 2% OINT 22 GM TUBE TOPICAL SCH (07:30)
[2018-03-31] MEDS: INSULIN ASPART 100 UNIT/ML 1 ML 10 ML VIAL SQ SCH ×2 (07:31→12:21)
[2018-03-31] MEDS: guaiFENesin 600 MG TABLET.ER PO SCH (07:32)
[2018-03-31] MEDS: MONTELUKAST 10 MG TAB PO SCH (07:32)
[2018-03-31] MEDS: DILTIAZEM CD 300 MG CAP.ER.24H PO SCH (07:32)
[2018-03-31] MEDS: FERROUS SULFATE 325 MG TAB PO SCH (07:32)
[2018-03-31] MEDS: PANTOPRAZOLE 40 MG TABLET PO SCH (07:32)
[2018-03-31] MEDS: BENZONATATE 100 MG CAP PO SCH (07:32)
[2018-03-31] MEDS: VENLAFAXINE HCL ER 37.5 MG CAP PO SCH (07:32)
[2018-03-31 07:34] LABS: Glucose,Whole Blood 222 mg/dL (75-99)
[2018-03-31 09:00] LABS: HCT 37.1 % (34.0-46.0); HGB 11.8 gm/dL (11.4-16.0); MCH 28.7 pg (25.0-35.0); MCV 89.7 fL (80.0-100.0); Mean Platelet Volume 6.9; Platelet Count 132 k/uL (150-450); RBC 4.13 m/uL (3.80-5.40); RDW 15.2 % (11.5-15.5); WBC 6.1 k/uL (3.8-10.6)
[2018-03-31 09:14] LABS: Anion Gap 8 mmol/L; Blood Urea Nitrogen 18 mg/dL (7-17); Calcium 8.9 mg/dL (8.4-10.2); Carbon Dioxide 32 mmol/L (22-30); Chloride 98 mmol/L (98-107); Glucose 220 mg/dL (74-99); Potassium 3.8 mmol/L (3.5-5.1); Sodium 138 mmol/L (137-145)
[2018-03-31] MEDS ORDERED: FLUCONAZOLE 100 MG TAB PO SCH (09:30)
[2018-03-31 11:05] LABS: Glucose,Whole Blood 245 mg/dL (75-99)
[2018-03-31 11:36] VITALS: PULSE 98
--- NOTE | 2018-03-31 12:59 | PN ---
PROGRESS NOTE DATE OF SERVICE: March 31, 2018 HISTORY: This is a 52-year-old female who has been in the hospital for a number of days now. She actually has been here for about 8 or 9 days. She came into the hospital for an asthma exacerbation. She had a recent hospitalization similarly a couple weeks ago for a prolonged period of time for similar episode of asthma exacerbation. When she went home, she was doing better, but then got worse again and came back into the hospital. On her previous visit, she had a bronchoscopy which revealed RSV. Obviously that does not require any particular treatment. Again, she was much improved. More recently, she states her asthma has been active again. Her complaints include chest tightness, wheezing, cough and shortness of breath. We did a repeat bronchoscopy on her. This time we found parainfluenza virus as well as herpes simplex virus. The patient is just about ready for discharge from the hospital. She is improved. She is not back to baseline. We did change some of her medications around today. She is currently on Symbicort 160/4.5, 2 puffs twice a day. I switched her off to prednisone 60 mg a day. We just discussed an IV antibiotics with the hospitalist. The patient also has a history of chronic hypoxemic respiratory failure, acute tracheobronchitis, GERD, sleep apnea syndrome, morbid obesity, hypothyroidism, DJD, vitamin D deficiency and viral cardiomyopathy. PHYSICAL EXAMINATION: Current vital signs are reviewed. Temperature 98.3, heart rate 90, respiratory rate 14, blood pressure 151/77, mean 101. 3 L saturation 94%. Appears in no acute distress. HEENT examination is grossly unremarkable. Mucous membranes are moist. No oral lesion. Neck is supple. Full range of motion. No adenopathy or thyromegaly. Neck veins are flat. Cardiovascular examination reveals regular rhythm and rate. S1, S2 normal. No S3, S4, or murmur. Heart rate about 90. It is regular. Lungs reveal a few scattered rhonchi. There is some expiratory wheezes. She coughs on deep inspiration. She also coughs and wheezes on forced maneuver. All in all, lungs are improved but not back to baseline. Abdomen is obese. Bowel sounds are heard. Extremities are intact. No cyanosis, clubbing, or edema. Skin without rash. Neurologic examination is brief but nonfocal. LAB STUDIES: Microbiological studies are thus far all negative. Labs are reviewed. Her sodium 138, potassium 3.8, chloride 98, CO2 32, anion gap 8, BUN and creatinine were 18 and 0.53. No recent x-rays to report. ASSESSMENT: 1. Acute exacerbation of severe persistent chronic bronchial asthma, triggered by viral infections, most recently parainfluenza virus type 3, and herpes simplex virus, type 1 and previously by respiratory syncytial virus. Bacteriologic studies have been negative. She has had bronchoscopy x2. 2. Chronic hypoxemic respiratory failure, secondary to the above. 3. Recent extended hospitalization secondary to asthma, complicated by RSV infection. 4. Acute tracheobronchitis with a component of tracheobronchomalacia. 5. Gastroesophageal reflux disease. 6. Sleep apnea syndrome, currently on CPAP therapy. 7. Morbid obesity. 8. Hypothyroidism. 9. Degenerative joint disease. 10.Vitamin D deficiency. 11.History of viral cardiomyopathy. PLAN: I talked to the primary about her. He, like me, is confused as to why she has not really improved. We might have to send her out to another facility for further evaluation. The patient is improved but not back to baseline. The second bronchoscopy did not reveal anything in the way of microbiology other than the viruses mentioned above. We will continue to follow. Prognosis is guarded. I switched to Symbicort 160/4.5, 2 puffs twice a day and prednisone 60 mg a day. She is also on Singulair and DuoNeb. The hospitalist will decide on the antibiotics. Additional recommendations and suggestions are forthcoming. MMODL / IJN: [id number] /
--- NOTE | 2018-03-31 17:42 | P.DS ---
Providers Date of admission: 03/23/18 14:30 Expected date of discharge: 03/31/18 Attending physician: Russell Vargas MD Consults: 03/24/18 09:16 Consult Physician Routine Consulting Provider: Abby Reid Consult Reason/Comments: asthma/RSV/ Do you want consulting provider notified?: Yes Primary care physician: Radha Mcmillan MD Hospital Course: The patient is a 52 yo F with a PMH of asthma, hypothyroidism, GERD, and ITZ presented to the ED for worsening SOB and wheezing. The patient was recently admitted to [facility] for exacerbation of severe persistent bronchial asthma, purulent tracheobronchitis, and RLL bronchopneumonia. She had a prolonged hospital course and underwent a bronchoscopy with BAL which was positive for RSV and Neelima. The patient gradually improved and was discharged on 03/18/18 to home w/ a taper of steroids. She was seen for a f/u in the Pulmonary clinic and had some improvement since discharge but her symptoms subsequently persisted and she re-presented to the ED. She had SOB and wheezing with CXR negative for pneumonia. The patient was subsequently admitted for asthma exacerbation and stared on IV solumedrol and Duonebs. Pulmonary was consulted and recommended a repeat bronchoscopy which showed significant bronchial inflammation. Serologies resulted positive for HSV type I and parainfluenza 3 viruses. The patient received IV steroids along with IV antibiotics though showed only modest improvement in her symptoms. Discussed with the patient that since her course has been stable during the hospital stay with supplemental oxygen and steroids, that will discharge her home with oral steroids and oral antibiotics along with continuous oxygen, to follow-up with pulmonary as an outpatient within 1 week. Discussed with the patient that if her symptoms worsen, to return to the ED. The patient was in agreement with the plan and verbalized understanding. Physical Examination General: Non-toxic, in no acute distress, appears stated age, morbidly obese HEENT: NC/AT, anicteric sclerae, moist conjunctiva, no lid-lag, PERRLA Cardiovascular: S1/S2 wnl, no murmurs, rubs, or gallops Lungs: Improved air entry carolyn w/ some end-expiratory wheezing and scattered coarse breath sounds, normal respiratory effort, no accessory muscle use Abdominal: Soft, non-tender, non-distended, no guarding, rebound, or rigidity Skin: Warm, dry Extremities: No edema or contractures, left second finger nail bed small ulcer with no underlying fluid collection, no drainage, nontender to palpation Psychiatric: Alert and oriented to person, place and time, appropriate affect Neuro: CN II-XII grossly intact, Strength 5/5 in all 4 extremities, Speech intact, Sensation to light touch grossly intact throughout Discharge diagnosis: Acute exacerbation of severe persistent asthma; chronic hypoxic respiratory failure; acute tracheobronchitis and component of tracheobronchomalacia; paronychia; hypothyroidism; GERD; ITZ; vitamin D deficiency A total of 60 minutes of time were spent preparing this complex discharge summary. Pertinent Studies: As per HPI Procedures: As per HPI Patient Condition at Discharge: Stable Plan - Discharge Summary Discharge Rx Participant: No New Discharge Prescriptions: New Amoxic-Pot Clav 875-125Mg [Augmentin 875-125] 1 tab PO Q12HR #10 tablet Fluconazole [Diflucan] 100 mg PO BID #9 tab Lidocaine Viscous [Xylocaine Viscous 2%] 30 ml PO TID PRN #500 ml PRN Reason: Mouth Irritation Mupirocin 2% Oint [Bactroban 2% Oint] 1 applic TOPICAL TID #1 applic predniSONE 50 mg PO DAILY #5 tab Continue Montelukast [Singulair] 10 mg PO DAILY Ferrous Sulfate [Iron (65 MG Elemental)] 65 mg PO BID Diltiazem HCl [Cartia Xt] 300 mg PO DAILY Venlafaxine HCl ER [Effexor XR] 37.5 mg PO DAILY Vitamin B Complex 1 each PO DAILY Fluticasone Nasal [place] [Flonase Nasal [place]] 1 spray EA NOSTRIL DAILY Benzonatate [Tessalon Perles] 100 mg PO TID Budesonide/Formoterol Fumarate [Symbicort 160-4.5 Mcg Inhaler] 2 puff INHALATION BID #1 inhaler guaiFENesin [Mucinex] 1,200 mg PO Q12HR #30 tablet.er Promethaz-Cod 6.25-10 mg/5 ml [Phenergan with Codeine] 5 ml PO Q4HR PRN 3 Days #90 ml PRN Reason: Cough Ergocalciferol (Vitamin D2) [Drisdol] 1 cap PO DIRECTED Ipratropium-Albuterol Nebulize [Duoneb 0.5 mg-3 mg/3 ml Soln] 3 ml INHALATION RT-Q4H #1 ampul.neb Levalbuterol Tartrate [Xopenex Hfa Inhaler] 2 puff INHALATION RT-QID PRN #1 hfa.aer.ad PRN Reason: Shortness Of Breath Discontinued predniSONE See Taper PO DIRECTED Discharge Medication List Montelukast [Singulair] 10 mg PO DAILY 04/16/17 [History] Diltiazem HCl [Cartia Xt] 300 mg PO DAILY 10/31/17 [History] Ferrous Sulfate [Iron (65 MG Elemental)] 65 mg PO BID 10/31/17 [History] Venlafaxine HCl ER [Effexor XR] 37.5 mg PO DAILY 01/10/18 [History] Vitamin B Complex 1 each PO DAILY 02/15/18 [History] Benzonatate [Tessalon Perles] 100 mg PO TID 03/04/18 [History] Fluticasone Nasal [place] [Flonase Nasal [place]] 1 spray EA NOSTRIL DAILY 03/04/18 [History] Budesonide/Formoterol Fumarate [Symbicort 160-4.5 Mcg Inhaler] 2 puff INHALATION BID #1 inhaler 03/18/18 [Rx] Promethaz-Cod 6.25-10 mg/5 ml [Phenergan with Codeine] 5 ml PO Q4HR PRN 3 Days # 90 ml 03/18/18 [Rx] guaiFENesin [Mucinex] 1,200 mg PO Q12HR #30 tablet.er 03/18/18 [Rx] Ergocalciferol (Vitamin D2) [Drisdol] 1 cap PO DIRECTED 03/23/18 [History] Amoxic-Pot Clav 875-125Mg [Augmentin 875-125] 1 tab PO Q12HR #10 tablet [Rx] Fluconazole [Diflucan] 100 mg PO BID #9 tab 03/31/18 [Rx] Ipratropium-Albuterol Nebulize [Duoneb 0.5 mg-3 mg/3 ml Soln] 3 ml INHALATION RT -Q4H #1 ampul.neb 03/31/18 [Rx] Levalbuterol Tartrate [Xopenex Hfa Inhaler] 2 puff INHALATION RT-QID PRN #1 hfa.aer.ad 03/31/18 [Rx] Lidocaine Viscous [Xylocaine Viscous 2%] 30 ml PO TID PRN #500 ml 03/31/18 [Rx] Mupirocin 2% Oint [Bactroban 2% Oint] 1 applic TOPICAL TID #1 applic 03/31/18 [ Rx] predniSONE 50 mg PO DAILY #5 tab 03/31/18 [Rx] Follow up Appointment(s)/Referral(s): Radha Mcmillan MD [Primary Care Provider] - 1 Week [facility], [NON-STAFF] - As Needed Patient Instructions/Handouts: Asthma (DC) Discharge Disposition: HOME SELF-CARE
[2018-03-31] MEDS ORDERED: SYMBICORT 160-4.5 MCG INHALER INHALATION SCH (20:00)
[2018-04-01] MEDS ORDERED: predniSONE 20 MG TAB PO SCH (09:00)
[2018-04-02 14:17] LABS: C-ANCA <1:20 Titer (<1:20); P-ANCA <1:20 Titer (<1:20)
== END 2018-03-31 14:40 | disposition home health service (06) | DRG 202 ==
LOC: EC 11:44 → 4SSUR 14:30
PROVIDERS: ADMIT Family Medicine; ATTEND Family Medicine
PROC: 0BCB8ZZ Extirpation of Matter from Left Lower Lobe Bronchus, Via Natural or Artificial Opening Endoscopic (ICD-10-PCS; 2018-03-26)
PROC: 0BC68ZZ Extirpation of Matter from Right Lower Lobe Bronchus, Via Natural or Artificial Opening Endoscopic (ICD-10-PCS; 2018-03-26)
PROC: 0B9D8ZX Drainage of Right Middle Lung Lobe, Via Natural or Artificial Opening Endoscopic, Diagnostic (ICD-10-PCS; principal; 2018-03-26 07:30)
PROC: 05HF33Z Insertion of Infusion Device into Left Cephalic Vein, Percutaneous Approach (ICD-10-PCS; 2018-03-29)
DX: J45.51 Severe persistent asthma with (acute) exacerbation (principal); Z68.41 Body mass index [BMI] 40.0-44.9, adult; J96.11 Chronic respiratory failure with hypoxia; K90.41 Non-celiac gluten sensitivity; B00.89 Other herpesviral infection; T17.890A Other foreign object in other parts of respiratory tract causing asphyxiation, initial encounter; E66.01 Morbid (severe) obesity due to excess calories; J39.8 Other specified diseases of upper respiratory tract; J20.9 Acute bronchitis, unspecified; B34.8 Other viral infections of unspecified site; B33.24 Viral cardiomyopathy; E03.9 Hypothyroidism, unspecified; M19.90 Unspecified osteoarthritis, unspecified site; M48.00 Spinal stenosis, site unspecified; K21.9 Gastro-esophageal reflux disease without esophagitis; G47.33 Obstructive sleep apnea (adult) (pediatric); E55.9 Vitamin D deficiency, unspecified; F32.9 Major depressive disorder, single episode, unspecified; F41.9 Anxiety disorder, unspecified; G43.909 Migraine, unspecified, not intractable, without status migrainosus; D50.9 Iron deficiency anemia, unspecified; Z99.81 Dependence on supplemental oxygen; Z79.51 Long term (current) use of inhaled steroids; Z79.899 Other long term (current) drug therapy; Z87.01 Personal history of pneumonia (recurrent); Z71.3 Dietary counseling and surveillance; Z99.89 Dependence on other enabling machines and devices; Z90.49 Acquired absence of other specified parts of digestive tract; Z98.891 History of uterine scar from previous surgery; Z90.710 Acquired absence of both cervix and uterus; Z98.84 Bariatric surgery status; Z90.721 Acquired absence of ovaries, unilateral; Z98.1 Arthrodesis status; Z88.1 Allergy status to other antibiotic agents; Z88.5 Allergy status to narcotic agent; Z88.8 Allergy status to other drugs, medicaments and biological substances; Z91.013 Allergy to seafood; Z91.018 Allergy to other foods; Z83.3 Family history of diabetes mellitus; Z80.7 Family history of other malignant neoplasms of lymphoid, hematopoietic and related tissues; Z84.1 Family history of disorders of kidney and ureter; Z82.49 Family history of ischemic heart disease and other diseases of the circulatory system; Z80.49 Family history of malignant neoplasm of other genital organs; Z82.62 Family history of osteoporosis; Z83.49 Family history of other endocrine, nutritional and metabolic diseases
CPT/HCPCS: 31624; 36410; 71046; 71250; 76937; 80048; 80053; 82550; 82553; 83036; 84484; 85025; 85027; 85610; 85730; 86255; 87040; 87070; 87102; 87116; 87205; 87206; 87252; 87496; 87498; 87502; 87529; 87634; 87798; 88108; 88305; 94640; 94760; 96361; 96374; 99285

== ENCOUNTER → 2018-05-29 | Outpatient (CLI) | payer OTHER ==
[2018-05-29 10:13] LABS: Basophils # (A) 0.1 k/uL (0-0.2); Basophils % (A) 0 %; Eosinophils # (A) 0.1 k/uL (0-0.7); Eosinophils % (A) 1 %; HCT 43.2 % (34.0-46.0); HGB 13.7 gm/dL (11.4-16.0); Lymphocytes # (A) 1.5 k/uL (1.0-4.8); Lymphocytes % (A) 11 %; MCH 29.6 pg (25.0-35.0); MCHC 31.8 g/dL (31.0-37.0); MCV 93.1 fL (80.0-100.0); Mean Platelet Volume 6.9; Monocytes # (A) 0.5 k/uL (0-1.0); Monocytes % (A) 4 %; Neutrophils # (A) 11.4 k/uL (1.3-7.7); Neutrophils % (A) 83 %; RBC 4.64 m/uL (3.80-5.40); RDW 14.8 % (11.5-15.5); WBC 13.8 k/uL (3.8-10.6)
[2018-05-29 10:19] LABS: Platelet Count 321 k/uL (150-450)
[2018-05-29 18:43] LABS: Albumin 4.6 g/dL (3.80-4.90); Albumin/Globulin Ratio 2.19 (1.60-3.17); Anion Gap 12.8 mmol/L (4.00-12.00); Calcium 10.3 mg/dL (8.7-10.3); Carbon Dioxide 34.2 mmol/L (21.6-31.8); Globulin 2.1 g/dL (1.6-3.3); LDL Cholesterol,Calculated 125.8 mg/dL (0.0-131.0); Magnesium 2.1 mg/dL (1.5-2.4); Potassium 3.6 mmol/L (3.5-5.5); Total Bilirubin 0.5 mg/dL (0.3-1.2); Total Protein 6.7 g/dL (6.2-8.2); VLDL Calculation 27.2 mg/dL (5.00-40.00)
[2018-05-29 18:45] LABS: Vitamin D 25 Hydroxy 36.5 ng/mL (30.0-100.0)
[2018-05-29 20:24] LABS: Hemoglobin A1C 5.8 % (4.0-6.0)
== END | disposition home or self-care (01) ==
LOC: LABWHC1 09:10
PROVIDERS: ATTEND Family Medicine
DX: Z00.00 Encounter for general adult medical examination without abnormal findings (principal); R73.9 Hyperglycemia, unspecified; R00.0 Tachycardia, unspecified; E55.9 Vitamin D deficiency, unspecified; E61.1 Iron deficiency
CPT/HCPCS: 36415; 80053; 80061; 82306; 83036; 83540; 83735; 85025

== ENCOUNTER 2018-08-23 19:35 | Emergency (ER) | payer OTHER ==
--- NOTE | 2018-08-23 20:15 | ED ---
Chest Pain HPI - General Chief Complaint: Chest Pain Stated Complaint: OLLIE/Chest Pain Time Seen by Provider: 08/23/18 20:11 Source: patient Mode of arrival: ambulatory Limitations: no limitations - History of Present Illness Initial Comments: This patient is a 53-year-old woman with history of tracheomalacia status post stent placement, who presents with complaint of having 2 weeks of increased coughing, upper chest and upper back pain. The patient states that she is also having some thicker sputum and is usual for her. The patient has not noticed fevers. She is denying dyspnea. She has not noted leg pain or swelling. MD Complaint: chest pain, other (Cough and back pain) Onset/Timin -: week(s) Onset: during rest Pain Location: substernal Pain Radiation: back Severity: moderate Quality: aching Consistency: constant Improves With: nothing Worsens With: other (Coughing) Other Symptoms: cough Treatments Prior to Arrival: none - Related Data Home Medications Medication Instructions Recorded Confirmed Montelukast [Singulair] 10 mg PO DAILY 04/16/17 08/23/18 Ferrous Sulfate [Iron (65 MG 325 mg PO DAILY 10/31/17 08/23/18 Elemental)] Vitamin B Complex 1 cap PO DAILY 02/15/18 08/23/18 Acetylcysteine [Mucomyst] 200 mg INHALATION RT-DAILY 08/23/18 08/23/18 Albuterol Nebulized [Ventolin 2.5 mg INHALATION RT-QID 08/23/18 08/23/18 Nebulized] Budesonide [Pulmicort] 0.5 mg INHALATION RT-BID 08/23/18 08/23/18 Cholecalciferol [Vitamin D3 (25 5,000 unit PO DAILY 08/23/18 08/23/18 Mcg = 1000 Iu)] Diltiazem HCl [Cartia Xt] 240 mg PO DAILY 08/23/18 08/23/18 Hydrochlorothiazide [Hydrodiuril] 25 mg PO DAILY 08/23/18 08/23/18 L.acidoph,Paracasei, B.lactis 1 cap PO DAILY 08/23/18 08/23/18 [Probiotic] Multivitamins, Thera [Multivitamin 1 tab PO DAILY 08/23/18 08/23/18 (formulary)] Omeprazole 40 mg PO BID 08/23/18 08/23/18 Promethazine HCl [Phenergan Syrup] 12.5 mg PO HS 08/23/18 08/23/18 Venlafaxine HCl ER [Effexor Xr] 75 mg PO DAILY 08/23/18 08/23/18 Previous Rx's Medication Instructions Recorded Levalbuterol Tartrate [Xopenex Hfa 2 puff INHALATION RT-QID PRN #1 03/31/18 Inhaler] hfa.aer.ad Allergies Allergy/AdvReac Type Severity Reaction Status Date / Time ciprofloxacin Allergy Itching Verified 08/23/18 21:53 gluten AdvReac Nausea & Verified 08/23/18 21:53 Vomiting & Diarrhea hydromorphone [From Dilaudid] AdvReac Nausea & Verified 08/23/18 21:53 Vomiting NSAIDS (Non-Steroidal AdvReac Abdominal Verified 08/23/18 21:53 Anti-Inflamma Pain shellfish derived AdvReac Nausea & Verified 08/23/18 21:53 Vomiting Review of Systems ROS Statement: Those systems with pertinent positive or pertinent negative responses have been documented in the HPI. ROS Other: All systems not noted in ROS Statement are negative. Constitutional: Denies: fever, chills, weakness Respiratory: Reports: as per HPI, cough, stridor. Denies: dyspnea, wheezes Cardiovascular: Reports: as per HPI, chest pain. Denies: palpitations, orthopnea, edema, syncope Gastrointestinal: Denies: abdominal pain, nausea, vomiting Genitourinary: Denies: dysuria, hematuria Musculoskeletal: Reports: as per HPI, back pain Skin: Denies: rash Neurological: Denies: headache, weakness, numbness EKG Findings - EKG Results: EKG: interpreted by ERMD, sinus rhythm (Rate 99 bpm), normal axis, normal QRS, normal ST/T, no acute changes - MS, Pacemaker, Normal: Normal tracing: normal tracing Past Medical History Past Medical History: Asthma, GERD/Reflux, Osteoarthritis (OA), Pneumonia, Sleep Apnea/CPAP/BIPAP, Thyroid Disorder Additional Past Medical History / Comment(s): Sinusiti, bronchospasms, past cardiomyopathy thought viral, occasional tachycardia especially when eats and with activity, ITZ with CPAP use, near syncope when she had the flu and with a dental procedure-checked fitbit and heart rate in 50s, thyroid nodules with neg bx. Spinal stenosis. Gluten sensitivity. Vitamin D deficiency, iron deficiency anemia, migraines,bruising more easily History of Any Multi-Drug Resistant Organisms: None Reported Past Surgical History: Appendectomy, Back Surgery, Bariatric Surgery, Section, Heart Catheterization, Hysterectomy, Orthopedic Surgery, Tonsillectomy Additional Past Surgical History / Comment(s): 2012 gastric sleeve, with hiatal hernia repair 11/2016 spinal fusion/decompression L4-L5 and S1, bilateral shoulder arthroscopies, 3 laparotomies d/t pain/ovarian cyst/adhesions, hysterectomy with R oophorectomy, 2 D&Cs after miscarriages, lipoma removed from left side of back, 2016 Cardiac cath-normal, colonoscopy, EGD's Past Anesthesia/Blood Transfusion Reactions: Motion Sickness, Postoperative Nausea & Vomiting (PONV) Additional Past Anesthesia/Blood Transfusion Reaction / Comment(s): difficult iv start Past Psychological History: Anxiety, Depression Smoking Status: Never smoker - Past Family History Father Family Medical History: Cancer, Diabetes Mellitus, Renal Disease Additional Family Medical History / Comment(s): Father is from kidney failure d/t diabetes. He at the age of 68yrs. Mother Family Medical History: Cancer, Congestive Heart Failure (CHF), Coronary Artery Disease (CAD), Diabetes Mellitus, Myocardial Infarction ([place]), Thyroid Disorder Additional Family Medical History / Comment(s): Mother has had multiple MIs with first one at about age 72 yrs. She has had CABG and has 5 cardiac stents. She is in remision from uterine cancer and has osteoporosis. She is 81 yrs old. General Exam Limitations: no limitations General appearance: alert, in no apparent distress Head exam: Present: atraumatic, normocephalic Eye exam: Present: normal appearance. Absent: scleral icterus, conjunctival injection ENT exam: Present: normal oropharynx Neck exam: Present: normal inspection Respiratory exam: Present: rhonchi, stridor. Absent: respiratory distress, wheezes, rales, accessory muscle use, decreased breath sounds, prolonged expiratory Cardiovascular Exam: Present: regular rate, normal rhythm, normal heart sounds. Absent: systolic murmur, diastolic murmur, rubs, gallop GI/Abdominal exam: Present: soft. Absent: distended, tenderness, guarding, rebound, rigid, mass Extremities exam: Present: normal inspection, normal capillary refill. Absent: pedal edema, calf tenderness Back exam: Present: normal inspection. Absent: CVA tenderness (R), CVA tenderness (L) Neurological exam: Present: alert Skin exam: Present: warm, dry, intact, normal color. Absent: rash Course Vital Signs 08/23/18 08/23/18 08/23/18 19:43 20:23 21:03 Temperature 99.1 F 98.2 F Pulse Rate 104 H 85 Respiratory 28 H 48 H 36 H Rate Blood Pressure 137/71 114/72 O2 Sat by Pulse 98 96 Oximetry 08/23/18 08/23/18 08/23/18 21:07 21:20 22:33 Temperature Pulse Rate 87 105 H 85 Respiratory 18 22 30 H Rate Blood Pressure 110/82 O2 Sat by Pulse 98 Oximetry 08/23/18 08/24/18 23:41 01:18 Temperature 98.5 F 98.0 F Pulse Rate 85 80 Respiratory 26 H 24 Rate Blood Pressure 117/68 110/57 O2 Sat by Pulse 97 97 Oximetry Chest Pain MDM - MDM Patient's 53-year-old woman with history of tracheal stenting secondary to tracheomalacia. Patient's respiratory status improved following nebulized treatment. Suspect there may have been element of secretions within the stent. Given the pain and her respiratory status, computed tomography scan ordered. Discussed results with the patient and recommended transfer to her back sewer at [facility] area patient agrees. I discussed the case there with Dr. Hutchinson, who accepts transfer. Disposition Clinical Impression: Pneumomediastinum, Mediastinal mass Disposition: OTHER INSTITUTION NOT DEFINED Condition: Fair Referrals: Radha Mcmillan MD [Primary Care Provider] - 1-2 days - Out of Hospital Transfer - Req. Specs Out of Hospital Transfer - Requested Specifics: Other Emergency Center
[2018-08-23 20:48] LABS: Basophils % (A) 0 %; Eosinophils # (A) 0.1 k/uL (0-0.7); Eosinophils % (A) 1 %; HCT 38.9 % (34.0-46.0); HGB 12.6 gm/dL (11.4-16.0); Lymphocytes # (A) 1.6 k/uL (1.0-4.8); Lymphocytes % (A) 16 %; MCH 26.9 pg (25.0-35.0); MCHC 32.4 g/dL (31.0-37.0); MCV 83.1 fL (80.0-100.0); Mean Platelet Volume 7.9; Monocytes # (A) 0.3 k/uL (0-1.0); Monocytes % (A) 3 %; Neutrophils # (A) 8.2 k/uL (1.3-7.7); Neutrophils % (A) 79 %; Platelet Count 331 k/uL (150-450); RBC 4.68 m/uL (3.80-5.40); RDW 14.6 % (11.5-15.5); WBC 10.4 k/uL (3.8-10.6)
[2018-08-23 20:53] LABS: INR 0.9 (<1.2); Partial Thromboplastin Time 25.6 sec (22.0-30.0); Prothrombin Time 10.1 sec (9.0-12.0)
[2018-08-23] MEDS ORDERED: ACETYLCYSTEINE 800 MG/4 ML VIAL INHALATION STA (20:53)
[2018-08-23] MEDS ORDERED: ALBUTEROL NEBULIZED 2.5 MG/3 ML INHALATION STA (20:53)
[2018-08-23 20:54] LABS: D-Dimer 0.65 mg/L FEU (<0.60)
[2018-08-23 20:56] LABS: ALT 11 U/L (9-52); AST 19 U/L (14-36); African American GFR (CKD) >90 (>60 ml/min/1.73 sqM); Albumin 4.4 g/dL (3.5-5.0); Alkaline Phosphatase 70 U/L (38-126); Amylase 44 U/L (30-110); Anion Gap 12 mmol/L; Blood Urea Nitrogen 12 mg/dL (7-17); Calcium 9.5 mg/dL (8.4-10.2); Carbon Dioxide 31 mmol/L (22-30); Chloride 99 mmol/L (98-107); Glucose 149 mg/dL (74-99); Lipase 145 U/L (23-300); Magnesium 2.1 mg/dL (1.6-2.3); Sodium 142 mmol/L (137-145); Total Bilirubin 0.3 mg/dL (0.2-1.3); Total Protein 7.2 g/dL (6.3-8.2)
--- NOTE | 2018-08-23 21:39 | XR ---
EXAMINATION: XR chest 2V DATE AND TIME: 08/23/2018 8:53 PM CLINICAL INDICATION: PHH; Chest Pain TECHNIQUE: Departmental protocol COMPARISON: 03/23/2018 FINDINGS: The lungs are clear. The pleural spaces are negative. The cardiac silhouette appears mildly enlarged. The remainder of the mediastinal silhouette is unrema rkable. The skeletal structures and soft tissues are negative for acute findings. IMPRESSION: NO ACUTE PROCESS.
[2018-08-23] MEDS ORDERED: POTASSIUM CHLORIDE ER 20 MEQ TAB.ER PO STA (23:31)
--- NOTE | 2018-08-23 23:40 | CT ---
EXAM: CT Angiography Chest With Intravenous Contrast CLINICAL HISTORY: : Pain TECHNIQUE: Axial computed tomographic angiography images of the chest with intravenous contrast using pulmonary embolism protocol. CTDI is 15.3 mGy and DLP is 471.1 mGy-cm. This CT exam was performed using one or more of the following dose reduction techniques: automated exposure control, adjustment of the mA and/or kV according to patient size, and/or use of iterative reconstruction technique. MIP reconstructed images were created and reviewed. Coronal and sagittal reformatted images were created and reviewed. COMPARISON: 03/24/18 FINDINGS: Pulmonary arteries: Unremarkable. No pulmonary embolism. Aorta: No acute findings. No thoracic aortic aneurysm. Lungs: There is narrowing of the left mainstem bronchi bilaterally secondary to encasement by this soft tissue density is findings are new compared to the prior study There is suggestion of paratracheal air, so-called double bronchial wall sign consistent with small pneumomediastinum. This may be secondary to the narrowing of the left mainstem and branching bronchi Pleural space: Unremarkable. No significant effusion. No pneumothorax. Heart: Unremarkable. No cardiomegaly. No significant pericardial effusion. No evidence of RV dysfunction. Bones/joints: No acute fracture. No dislocation. Soft tissues: Unremarkable. Lymph nodes: Interval enlargement of right paratracheal lymph node previously measuring 3 mm now measuring over 1 cm x 1.4 cm in size. There is interval development of subcarinal and posterior mediastinal soft tissue density suspicious for confluent zenon mass clinical correlation is required. Small bilateral perihilar lymph nodes are identified the prior study was performed without IV contrast and comparison is not easily made.. 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 No anterior mediastinal adenopathy noted
[2018-08-24] MEDS ORDERED: HYDROcodone/APAP 5-325MG 1 EACH TAB PO STA (00:48)
[2018-08-24 01:20] VITALS: BP 110/57; PULSE 80; RESP 24; TEMP 98
== END 2018-08-24 02:15 | disposition other institution (70) ==
LOC: EC 19:35
DX: J98.2 Interstitial emphysema (principal); J98.59 Other diseases of mediastinum, not elsewhere classified; M54.6 Pain in thoracic spine; J45.909 Unspecified asthma, uncomplicated; K21.9 Gastro-esophageal reflux disease without esophagitis; M19.90 Unspecified osteoarthritis, unspecified site; G47.33 Obstructive sleep apnea (adult) (pediatric); Z99.89 Dependence on other enabling machines and devices; F32.9 Major depressive disorder, single episode, unspecified; F41.9 Anxiety disorder, unspecified; Z79.51 Long term (current) use of inhaled steroids; Z79.899 Other long term (current) drug therapy; Z88.1 Allergy status to other antibiotic agents; Z88.5 Allergy status to narcotic agent; Z91.018 Allergy to other foods; Z91.013 Allergy to seafood; Z95.818 Presence of other cardiac implants and grafts
CPT/HCPCS: 36415; 94640; 93005; 85379; 80053; 82150; 83690; 83735; 84484; 85025; 85610; 85730; 71046; 71275; 99285; Q9967

== ENCOUNTER 2018-09-26 21:59 | Emergency (ER) | payer OTHER, BC ==
[2018-09-26] MEDS ORDERED: SODIUM CHLORIDE 0.9% 1,000 ML IV STA (22:14)
[2018-09-26] MEDS ORDERED: IPRATROPIUM 0.5 MG/2.5 ML NEBU INHALATION STA (22:14)
[2018-09-26] MEDS ORDERED: ALBUTEROL NEBULIZED 2.5 MG/3 ML INHALATION STA (22:14)
[2018-09-26] MEDS ORDERED: methylPREDNISolone SOD SUCCI 125 MG/2 ML VIAL IV STA (22:14)
--- NOTE | 2018-09-26 22:16 | ED ---
SOB HPI - General Chief Complaint: Shortness of Breath Stated Complaint: OLLIE Asthma Time Seen by Provider: 09/26/18 22:12 Source: patient, RN notes reviewed, old records reviewed Mode of arrival: wheelchair Limitations: no limitations - History of Present Illness Initial Comments: This is a 53-year-old female the ER for evaluation. Patient coming with 2-3 hours of severe shortness of breath home with inhaler. Patient is having consistent cough and congestion, recurrence tracheobronchitis with stent infection recently had tracheal stent removed. Patient denying any pain currently. She states shortness of breath started tonight is gotten progressively worse. Patient having significant difficulty breathing currently. Very anxious MD Complaint: shortness of breath, cough, anxiety -: minutes(s) (exceedingly worse), days(s) Severity: severe Severity scale (1-10): 8 Improves With: nothing Worsens With: exertion, movement Context: recent URI Associated Symptoms: denies other symptoms Treatments Prior to Arrival: none - Related Data Home Medications Medication Instructions Recorded Confirmed Montelukast [Singulair] 10 mg PO DAILY 04/16/17 08/23/18 Ferrous Sulfate [Iron (65 MG 325 mg PO DAILY 10/31/17 08/23/18 Elemental)] Vitamin B Complex 1 cap PO DAILY 02/15/18 08/23/18 Acetylcysteine [Mucomyst] 200 mg INHALATION RT-DAILY 08/23/18 08/23/18 Albuterol Nebulized [Ventolin 2.5 mg INHALATION RT-QID 08/23/18 08/23/18 Nebulized] Budesonide [Pulmicort] 0.5 mg INHALATION RT-BID 08/23/18 08/23/18 Cholecalciferol [Vitamin D3 (25 5,000 unit PO DAILY 08/23/18 08/23/18 Mcg = 1000 Iu)] Diltiazem HCl [Cartia Xt] 240 mg PO DAILY 08/23/18 08/23/18 Hydrochlorothiazide [Hydrodiuril] 25 mg PO DAILY 08/23/18 08/23/18 L.acidoph,Paracasei, B.lactis 1 cap PO DAILY 08/23/18 08/23/18 [Probiotic] Multivitamins, Thera [Multivitamin 1 tab PO DAILY 08/23/18 08/23/18 (formulary)] Omeprazole 40 mg PO BID 08/23/18 08/23/18 Promethazine HCl [Phenergan Syrup] 12.5 mg PO HS 08/23/18 08/23/18 Venlafaxine HCl ER [Effexor Xr] 75 mg PO DAILY 08/23/18 08/23/18 Previous Rx's Medication Instructions Recorded Levalbuterol Tartrate [Xopenex Hfa 2 puff INHALATION RT-QID PRN #1 03/31/18 Inhaler] hfa.aer.ad Allergies Allergy/AdvReac Type Severity Reaction Status Date / Time ciprofloxacin Allergy Itching Verified 09/26/18 22:39 gluten AdvReac Nausea & Verified 09/26/18 22:39 Vomiting & Diarrhea hydromorphone [From Dilaudid] AdvReac Nausea & Verified 09/26/18 22:39 Vomiting NSAIDS (Non-Steroidal AdvReac Abdominal Verified 09/26/18 22:39 Anti-Inflamma Pain shellfish derived AdvReac Nausea & Verified 09/26/18 22:39 Vomiting Review of Systems ROS Statement: Those systems with pertinent positive or pertinent negative responses have been documented in the HPI. ROS Other: All systems not noted in ROS Statement are negative. Past Medical History Past Medical History: Asthma, GERD/Reflux, Osteoarthritis (OA), Pneumonia, Sleep Apnea/CPAP/BIPAP, Thyroid Disorder Additional Past Medical History / Comment(s): Sinusiti, bronchospasms, past cardiomyopathy thought viral, occasional tachycardia especially when eats and with activity, ITZ with CPAP use, near syncope when she had the flu and with a dental procedure-checked fitbit and heart rate in 50s, thyroid nodules with neg bx. Spinal stenosis. Gluten sensitivity. Vitamin D deficiency, iron deficiency anemia, migraines,bruising more easily History of Any Multi-Drug Resistant Organisms: None Reported Past Surgical History: Appendectomy, Back Surgery, Bariatric Surgery, Section, Heart Catheterization, Hysterectomy, Orthopedic Surgery, Tonsillectomy Additional Past Surgical History / Comment(s): 2012 gastric sleeve, with hiatal hernia repair 11/2016 spinal fusion/decompression L4-L5 and S1, bilateral shoulder arthroscopies, 3 laparotomies d/t pain/ovarian cyst/adhesions, hysterectomy with R oophorectomy, 2 D&Cs after miscarriages, lipoma removed from left side of back, 2016 Cardiac cath-normal, colonoscopy, EGD's, trachea stent removed Past Anesthesia/Blood Transfusion Reactions: Motion Sickness, Postoperative Nausea & Vomiting (PONV) Additional Past Anesthesia/Blood Transfusion Reaction / Comment(s): difficult iv start Past Psychological History: Anxiety, Depression Smoking Status: Never smoker - Past Family History Father Family Medical History: Cancer, Diabetes Mellitus, Renal Disease Additional Family Medical History / Comment(s): Father is from kidney failure d/t diabetes. He at the age of 68yrs. Mother Family Medical History: Cancer, Congestive Heart Failure (CHF), Coronary Artery Disease (CAD), Diabetes Mellitus, Myocardial Infarction ([place]), Thyroid Disorder Additional Family Medical History / Comment(s): Mother has had multiple MIs with first one at about age 72 yrs. She has had CABG and has 5 cardiac stents. She is in remision from uterine cancer and has osteoporosis. She is 81 yrs old. General Exam - General Exam Comments Initial Comments: stridor noted Limitations: no limitations General appearance: alert, in no apparent distress Head exam: Present: atraumatic, normocephalic, normal inspection Eye exam: Present: normal appearance, PERRL, EOMI. Absent: scleral icterus, conjunctival injection, periorbital swelling ENT exam: Present: normal exam, mucous membranes moist Neck exam: Present: normal inspection. Absent: tenderness, meningismus, lymphadenopathy Respiratory exam: Present: normal lung sounds bilaterally. Absent: respiratory distress, wheezes, rales, rhonchi, stridor Cardiovascular Exam: Present: regular rate, normal rhythm, normal heart sounds. Absent: systolic murmur, diastolic murmur, rubs, gallop, clicks GI/Abdominal exam: Present: soft, normal bowel sounds. Absent: distended, tenderness, guarding, rebound, rigid Extremities exam: Present: normal inspection, full ROM, normal capillary refill. Absent: tenderness, pedal edema, joint swelling, calf tenderness Back exam: Present: normal inspection Neurological exam: Present: alert, oriented X3, CN II-XII intact Psychiatric exam: Present: normal affect, normal mood Skin exam: Present: warm, dry, intact, normal color. Absent: rash Course Vital Signs 09/26/18 09/26/18 09/26/18 22:01 22:18 22:24 Temperature 97.6 F Pulse Rate 92 112 H Respiratory 22 36 H Rate Blood Pressure 137/91 O2 Sat by Pulse 94 L Oximetry - Reevaluation(s) Reevaluation #1: 09/26/18 22:46 medical record is reviewed Reevaluation #2: 09/26/18 22:46 no improvement with breathing treatment Reevaluation #3: 09/26/18 22:46 patient to be placed on BiPap - showing significant improvement Medical Decision Making - Medical Decision Making 23 female the ER for evaluation presents today for evaluation regarding tracheomalacia stridor and shortness of breath with asthma exacerbation, continued tracheal bronchitis mucus production, improved on CPAP. We'll transfer to [facility] for evaluation and treatment - EKG Data -: EKG Interpreted by Me (EKG shows sinus tach rate of 104, [place] 180, QRS 82, QTc 460) - Radiology Data Radiology results: report reviewed (CXR is negatvie for acute disease), image reviewed Critical Care Time Critical Care Time: Yes Total Critical Care Time: 31 Disposition Clinical Impression: Stridor, Tracheomalacia, Asthma with exacerbation, Acute tracheobronchitis, Tachycardia Disposition: OTHER INSTITUTION NOT DEFINED Condition: Serious Is patient prescribed a controlled substance at d/c from ED?: No Referrals: Radha Mcmillan MD [Primary Care Provider] - 1-2 days - Out of Hospital Transfer - Req. Specs Out of Hospital Transfer - Requested Specifics: Other Emergency Center ([facility])
--- NOTE | 2018-09-26 22:35 | XR ---
EXAMINATION: XR chest 1V portable DATE AND TIME: 09/26/2018 10:24 PM CLINICAL INDICATION: PHH; sob TECHNIQUE: AP upright portable COMPARISON: 08/23/2018 FINDINGS: The lungs are clear. The pleural spaces are negative. The cardiac silhouette is not enlarged. The remainder of the mediastinal silhouette is unremarkable. The skeletal structures and soft tissues are negative for acute findings. IMPRESSION: NO ACUTE PROCESS.
[2018-09-26 23:02] LABS: Basophils % (A) 0 %; Eosinophils # (A) 0.1 k/uL (0-0.7); Eosinophils % (A) 1 %; HCT 43.4 % (34.0-46.0); HGB 13.9 gm/dL (11.4-16.0); Lymphocytes # (A) 2.5 k/uL (1.0-4.8); Lymphocytes % (A) 30 %; MCV 84.3 fL (80.0-100.0); Mean Platelet Volume 7.4; Monocytes # (A) 0.5 k/uL (0-1.0); Monocytes % (A) 6 %; Neutrophils # (A) 4.9 k/uL (1.3-7.7); Neutrophils % (A) 59 %; Platelet Count 273 k/uL (150-450); RBC 5.15 m/uL (3.80-5.40); RDW 14.6 % (11.5-15.5); WBC 8.3 k/uL (3.8-10.6)
[2018-09-26 23:17] LABS: D-Dimer 0.57 mg/L FEU (<0.60); INR 0.9 (<1.2); Prothrombin Time 9.5 sec (9.0-12.0)
[2018-09-26 23:21] LABS: Albumin 4.7 g/dL (3.5-5.0); Calcium 9.4 mg/dL (8.4-10.2); Magnesium 2.2 mg/dL (1.6-2.3); Potassium 3.5 mmol/L (3.5-5.1); Total Bilirubin 0.2 mg/dL (0.2-1.3); Total Protein 7.6 g/dL (6.3-8.2)
[2018-09-26 23:48] VITALS: BP 143/88; PULSE 112; RESP 22; TEMP 98
== END 2018-09-27 00:43 | disposition other institution (70) ==
LOC: EC 21:59
DX: J45.901 Unspecified asthma with (acute) exacerbation (principal); R06.1 Stridor; J39.8 Other specified diseases of upper respiratory tract; R00.0 Tachycardia, unspecified; K21.9 Gastro-esophageal reflux disease without esophagitis; G47.33 Obstructive sleep apnea (adult) (pediatric); F41.9 Anxiety disorder, unspecified; F32.9 Major depressive disorder, single episode, unspecified; Z79.51 Long term (current) use of inhaled steroids; Z79.899 Other long term (current) drug therapy; Z88.1 Allergy status to other antibiotic agents; Z91.018 Allergy to other foods; Z88.5 Allergy status to narcotic agent; Z88.6 Allergy status to analgesic agent; Z91.013 Allergy to seafood; Z95.5 Presence of coronary angioplasty implant and graft; Z98.2 Presence of cerebrospinal fluid drainage device
CPT/HCPCS: 36415; 94640; 93005; 85379; 83880; 80053; 83735; 84484; 85025; 85610; 85730; 71045; 99291; 96374; 96361; J2930

== ENCOUNTER → 2018-10-07 | Outpatient (CLI) | payer BC, OTHER ==
[2018-10-07 13:49] LABS: Basophils % (A) 0 %; Eosinophils # (A) 0.1 k/uL (0-0.7); Eosinophils % (A) 1 %; HCT 44.9 % (34.0-46.0); HGB 14.2 gm/dL (11.4-16.0); Lymphocytes # (A) 1.8 k/uL (1.0-4.8); Lymphocytes % (A) 19 %; MCH 27.6 pg (25.0-35.0); MCHC 31.6 g/dL (31.0-37.0); MCV 87.4 fL (80.0-100.0); Mean Platelet Volume 6.9; Monocytes # (A) 0.5 k/uL (0-1.0); Monocytes % (A) 5 %; Neutrophils # (A) 6.8 k/uL (1.3-7.7); Neutrophils % (A) 72 %; Platelet Count 260 k/uL (150-450); RBC 5.13 m/uL (3.80-5.40); RDW 15.2 % (11.5-15.5); WBC 9.4 k/uL (3.8-10.6)
[2018-10-07 19:44] LABS: African American GFR (CKD) 60.6 (60.0-200.0); Albumin 4.9 g/dL (3.80-4.90); Albumin/Globulin Ratio 2.45 (1.60-3.17); Anion Gap 11.9 mmol/L (4.00-12.00); Calcium 9.7 mg/dL (8.7-10.3); Carbon Dioxide 26.1 mmol/L (21.6-31.8); Magnesium 2.1 mg/dL (1.5-2.4); Non-African American GFR(CKD) 52.3 (60.0-200.0); Potassium 4.3 mmol/L (3.5-5.5); Total Bilirubin 0.3 mg/dL (0.3-1.2); Total Protein 6.9 g/dL (6.2-8.2)
== END | disposition home or self-care (01) ==
LOC: LABWHC1 13:14
PROVIDERS: ATTEND Family Medicine
DX: E87.6 Hypokalemia (principal); R79.89 Other specified abnormal findings of blood chemistry; R53.83 Other fatigue
CPT/HCPCS: 36415; 80053; 82607; 83735; 84439; 84443; 85025

== ENCOUNTER → 2018-10-15 | Outpatient (CLI) | payer BC, OTHER ==
--- NOTE | 2018-10-15 20:02 | PN ---
PROGRESS NOTE Adilene is a 53-year-old female patient with known history of bronchial asthma and severe tracheobronchomalacia. She has undergone previous insertion and removal of an endobronchial stent. She also has obstructive sleep apnea, mild in severity, with an AHI of 14. Nevertheless, her CPAP therapy has helped a lot with her sleep apnea and tracheal bronchomalacia. She has obesity, hypothyroidism, vitamin D deficiency and history of viral cardiomyopathy. On today's evaluation she is coming in for a compliancy check. She is looking very well while on the treatment. She was recently hospitalized for a respiratory tract infection at [facility] and she was able to take her machine with her. Based on the compliance data that was collected over the past 30 days, she has been averaging around 8.8 hours of CPAP use per night with an AHI down to 1.8 and leak of 7 L/minute. She is using the AirTouch small-sized full-face mask. No major hypersomnia or sleepiness during the day. She is quite comfortable while using the machine. At times she feels that she needs a higher pressure, especially on days where she has a lot of respiratory secretions and mucus. [place] score is 11. REVIEW OF SYSTEMS: Fourteen-point review of systems was done, and positive findings are all mentioned above in the history of present illness. SURGICAL HISTORY: 1. Insertion and removal of tracheal stent. Last stent was removed on 08/28/2018. 2. Cardiac catheterization in 2017. 3. EGD and colonoscopy in 2017 and 2018. 4. Multiple bronchoscopies. 5. Spinal fusion at level of L4-L5, L5-S1. 6. Gastric sleeve procedure. 7. Hysterectomy. 8. Appendectomy. 9. D&C. 10.Tonsillectomy. INFECTIOUS HISTORY: The patient has been infected multiple times in her lungs with Staph aureus, MSSA. At the age of 7 months she had RSV and she has been also infected with parainfluenza. Her last pneumonia was in February of 2018. OUTPATIENT MEDICATION LIST: Outpatient medication list includes: 1. DuoNeb nebulized treatments twice a day. 2. Pulmicort Respules twice a day. 3. Mucomyst once a day. 4. Iron 65 grams daily. 5. Imdur 30 mg p.o. daily. 6. Metoprolol 25 mg p.o. daily. 7. Effexor 75 mg p.o. daily. 8. Hydrochlorothiazide 25 mg p.o. daily. 9. Singulair 10 mg p.o. daily. 10.Omeprazole 40 mg p.o. daily. 11.Xopenex on an as-needed basis. ALLERGIES: 1. CIPRO. 2. SHELLFISH. 3. GLUTEN. PHYSICAL EXAMINATION: VITAL SIGNS: BP is 126/84, pulse 92, respirations 16, temperature 98.0, saturation 92% on room air. Height is 4 feet 11 inches. Weight is 209. [place] score is 11. BMI is 41.5. GENERAL APPEARANCE: Calm, comfortable. HEAD: Atraumatic, normocephalic. NECK: Supple. No JVD. No goiter or neck masses. Mallampati class III. LUNGS: Clear to auscultation. Diminished along with scattered rhonchi and scattered expiratory wheezes. HEART: Heart sounds are regular rate and rhythm. Normal S1, S2. No S3, S4. No murmurs. ABDOMEN: Soft, nontender. No organomegaly. EXTREMITIES: No edema. No cyanosis or clubbing. NEUROLOGIC: She is alert and oriented x3. There are no focal neurological deficits. PSYCHIATRIC: Negative for anxiety or depression. IMPRESSION: 1. Obstructive sleep apnea, moderately severe, with an apnea/hypopnea index of 14, currently on CPAP at a pressure of 10 cm of water. 2. Severe tracheobronchomalacia. 3. Multiple respiratory tract infections/pneumonias. 4. Bronchial asthma. 5. Obesity. 6. Hypothyroidism. 7. Vitamin D deficiency. 8. Degenerative arthritis. 9. History of viral cardiomyopathy. PLAN: The patient is doing well. Based on her increased need of CPAP, I am going to switch her to an auto mode, minimum of 10, maximum of 20, and drop the RAMP time to 5 minutes. Offer the AirTouch full-face mask. She will see me back at the pulmonary clinic for her pulmonary needs in the future. Encourage weight loss. I will continue to follow. MMODL / IJN: [id number] /
== END | disposition home or self-care (01) ==

== ENCOUNTER → 2018-10-16 | Outpatient (CLI) | payer OTHER, BC ==
[2018-10-16 12:59] VITALS: BMI 41.8
== END | disposition home or self-care (01) ==
LOC: DBWHC3 10:02
PROVIDERS: ATTEND Family Medicine
DX: E66.01 Morbid (severe) obesity due to excess calories (principal); Z68.41 Body mass index [BMI] 40.0-44.9, adult
CPT/HCPCS: 97802

== ENCOUNTER → 2018-10-26 | Outpatient (CLI) | payer OTHER, BC ==
--- NOTE | 2018-10-27 08:38 | CT ---
EXAMINATION TYPE: CT chest w con DATE OF EXAM: 10/26/2018 COMPARISON: 03/24/2018 CT thorax HISTORY: bronchomalacia CT DLP: 468.2 mGycm. Automated Exposure Control for Dose Reduction was Utilized. TECHNIQUE: CT scan of the thorax is performed following with IV Contrast, patient injected with 100 mL of Isovue 300. FINDINGS: LUNGS: Interstitial prominence and interlobular septal thickening is seen throughout the lungs. This is exaggerated by diminished inspiratory effort with dependent subsegmental atelectasis throughout th e lungs. Findings Limited evaluation for pulmonary nodule. No gross evidence of pulmonary mass. The trachea is slitlike and curvilinear indicative of tracheomalacia. This would be better assessed w ith intervertebral and expiratory imaging. However on current imaging the airway does appear to be pa tent as do the segmental bronchi. MEDIASTINUM: There are no greater than 1 cm hilar or mediastinal lymph nodes. No pericardial effusi on is seen. OTHER: The patient is status post partial gastrectomy with a small hiatal hernia seen. Incidentally n oted mild degree hepatic steatosis, limiting evaluation for hepatic masses. IMPRESSION: 1. Confirmation of tracheomalacia resulting in multifocal atelectasis and hypoaeration of the lungs. Interlobular septal thickening is also seen throughout and secondary component of fluid overload shou ld be considered. Findings appear new from the prior of 03/24/2018. 2. Incidentally noted post surgical change of the stomach and small hiatal hernia, mild degree hepati c steatosis, and mild degenerative changes of the spine.
== END | disposition home or self-care (01) ==
LOC: RADCTMAIN 10:26
PROVIDERS: ATTEND Internal Medicine Critical Care Medicine
DX: J98.11 Atelectasis (principal); J39.8 Other specified diseases of upper respiratory tract; J98.4 Other disorders of lung
CPT/HCPCS: 71260; Q9967

== ENCOUNTER → 2018-11-01 | Day surgery (SDC) | payer OTHER, BC ==
[2018-10-29 15:51] VITALS: BMI 40.4
[~2018-11-01] MED LIST: ACETAMINOPHEN TAB 500 MG TAB PO ONE; ALBUTEROL NEB (CONC) 2.5 MG/0.5 ML INHALATION ONE; GLYCOPYRROLATE 0.2 MG/ML 2 ML VIAL ONE; KETAMINE 10 MG/ML 20 ML VIAL ONE; LACTATED RINGERS 1,000 ML IV SCH; LIDOCAINE 1% 20 ML VIAL (10MG/ML) FOR IV START INTRADERMA PRN; LIDOCAINE 2% (PF) 20 MG/ML 5 ML VIAL INHALATION ONE; LIDOCAINE VISCOUS 300 MG/15 ML CUP MUCOUS MEM ONE; PROPOFOL 10 MG/ML 20 ML VIAL IV ONE; SODIUM CHLORIDE 0.9% 1,000 ML IV SCH; fentaNYL (PF) 50 MCG/ML 2 ML AMP ONE
[2018-11-01 10:42] VITALS: TEMP 97
--- NOTE | 2018-11-01 12:18 | P.PCN ---
Date of Procedure: 11/01/18 Preoperative Diagnosis: Severe tracheomalacia Postoperative Diagnosis: 1 Granulation tissue in the mid trachea, related to previous stent insertion 2 severe tracheomalacia Procedure(s) Performed: Flexible bronchoscopy, BAL of the left lower lobe Anesthesia: MAC Surgeon: Parish Johnson Estimated Blood Loss (ml): 0 Pathology: other Condition: stable Disposition: same day Operative Findings: This is a 53-year-old female patient who came in to undergo a flexible bronchoscopy and airway inspection. The patient has severe tracheomalacia and she is post insertion and removal of a Chary-en-Y stent and the removal was done because of recurrent infections and the patient experienced post insertion. Ultimately the stent was removed. She was having some cough and congestion and airway inspection was successful dilation tissue and rule out any ongoing infections. This procedure was done in the bronchoscopy suite. Anesthesia was given by UNIT LEADER and the patient was given a total of 50 mg of fentanyl and 100 mg of propofol. After achieving adequate sedation, the flexible bronchoscope was inserted through the left nostril. Examination of the posterior pharynx and larynx was done. There was no evidence of any leading to malacia. Larynx was quite patent and there was no evidence of any significant dynamic obstruction. Epiglottis was sharp in the midline. The true and false vocal cords were noted and the vocal cords functional mobility was within normal limits with complete abduction and abduction. No nodules or lesions noted at the level of vocal cords. Vallecula and that was also within normal limits. A total of 2 mL of 1% lidocaine was applied to the vocal cords, and following that the flexible bronchoscope was advanced into the upper trachea. The entire trachea was involved with malacia. The malacia started in the subglottic area and it extended all the way down to the main moi. There was near complete occlusion of the airway due to dynamic obstruction and mobility of the membranous trachea. The patient was having complete occlusion with cough. With deep breathing, the membranous trachea was very dynamically it was causing near complete obstruction. There was two 1 cm granulation tissue noted in the membranous trachea and these were very close to each other and the surface of it was very soft and shiny and regular. I believe this is due to irritation from the previously inserted stent to the level of the membranous trachea. The main stem bronchi were patent and there was some mild bronchomalacia. Secretions were noted in the left mainstem bronchus and the different segments of the left lower lobe and to lesser extent in the right lower lobe. The Previous airway inspection was done including the inspection of the right upper lobe bronchus, bronchus intermedius, right middle lobe bronchus, right lower lobe bronchus, le ft upper lobe bronchus and left lower lobe bronchus. I noted that the amount of alcohol malacia was much less compared to the tracheomalacia. There was some mild dynamic obstruction however this was not significant. A therapeutic airway suctioning was done. A BAL of the left lower lobe was done. A total of 25 mL was suctioned from the left lower lobe. Bronchoscope was removed and the patient was transferred recovery in stable condition. No complications. The samples will be sent for cultures and the patient will see back in the office.
[2018-11-01 12:25] VITALS: RESP 16
[2018-11-01 13:09] VITALS: BP 116/75; PULSE 82
== END | disposition home or self-care (01) ==
LOC: ORWHC2ENDO 10:03
PROVIDERS: ATTEND Internal Medicine Critical Care Medicine
DX: J39.8 Other specified diseases of upper respiratory tract (principal); G47.33 Obstructive sleep apnea (adult) (pediatric); Z99.89 Dependence on other enabling machines and devices; I42.9 Cardiomyopathy, unspecified; I10 Essential (primary) hypertension; E07.9 Disorder of thyroid, unspecified; Z98.84 Bariatric surgery status; J45.909 Unspecified asthma, uncomplicated; M19.90 Unspecified osteoarthritis, unspecified site; Z83.3 Family history of diabetes mellitus; Z80.9 Family history of malignant neoplasm, unspecified; Z82.49 Family history of ischemic heart disease and other diseases of the circulatory system; Z90.710 Acquired absence of both cervix and uterus; Z79.51 Long term (current) use of inhaled steroids; Z79.899 Other long term (current) drug therapy; Z88.1 Allergy status to other antibiotic agents; Z88.6 Allergy status to analgesic agent; Z88.5 Allergy status to narcotic agent; Z91.013 Allergy to seafood
CPT/HCPCS: 31624; 94640; 87798 ×3; 87496; 87498; 87529; 87252; 87502; 87634; 87070; 87205; 87116; 87102; 87206; J3010; J2704; J2001

== ENCOUNTER → 2018-11-08 | Outpatient (CLI) | payer OTHER, BC ==
[2018-11-08 13:13] LABS: African American GFR (CKD) >90 (>60 ml/min/1.73 sqM); Anion Gap 8 mmol/L; Blood Urea Nitrogen 13 mg/dL (7-17); Carbon Dioxide 33 mmol/L (22-30); Chloride 99 mmol/L (98-107); Non-African American GFR(CKD) >90 (>60 ml/min/1.73 sqM); Sodium 140 mmol/L (137-145)
[2018-11-08 13:14] LABS: HGB 12.8 gm/dL (11.4-16.0); MCH 28.4 pg (25.0-35.0); MCHC 33.7 g/dL (31.0-37.0); MCV 84.3 fL (80.0-100.0); Mean Platelet Volume 7.8; Platelet Count 222 k/uL (150-450); RBC 4.51 m/uL (3.80-5.40); RDW 15.5 % (11.5-15.5); WBC 6.1 k/uL (3.8-10.6)
== END | disposition home or self-care (01) ==
LOC: LABPAT 11:56
PROVIDERS: ATTEND Internal Medicine Interventional Cardiology
DX: Z01.812 Encounter for preprocedural laboratory examination (principal); R06.02 Shortness of breath
CPT/HCPCS: 36415; 80051; 82565; 84520; 85027

== ENCOUNTER → 2018-11-08 | Outpatient (CLI) | payer OTHER, BC ==
[2018-11-08 19:13] LABS: Chol/HDL Ratio 3.54; LDL Cholesterol,Calculated 140.2 mg/dL (0.0-131.0); VLDL Calculation 24.8 mg/dL (5.00-40.00)
== END | disposition home or self-care (01) ==
LOC: LABWHC1 11:53
PROVIDERS: ATTEND Nurse Practitioner Adult Health
DX: E78.5 Hyperlipidemia, unspecified (principal)
CPT/HCPCS: 36415; 80061

== ENCOUNTER → 2018-11-12 | Outpatient (CLI) | payer OTHER, BC ==
--- NOTE | 2018-11-12 13:46 | US ---
EXAMINATION TYPE: US thyroid st tissue head/neck DATE OF EXAM: 11/12/2018 COMPARISON: US October 05, 2017 CLINICAL HISTORY: E04.1 Thyroid Nodule. GLAND SIZE: Right Lobe: 5.5 x 1.9 x1.5 cm Overall Parenchyma: homogenous Left Lobe: 4.9 x 1.3 x 1.7 cm Overall Parenchyma: homogeneous Isthmus Thickness: 0.4 cm NODULES RIGHT: # of nodules measured on right: 3 1. 1.8 X 1.7 x 1.3 cm hypoechoic solid nodule at the lower pole with well-defined margins; . This nodule is wider than tall and shows intranodular vascularity. Prior size: 1.8 x 1.5 x 1.3 cm 2. 0.5 X 0.3 x 0.4 cm hypoechoic cystic nodule at the upper pole with well-defined margins; . This nodule is wider than tall and shows no intranodular vascularity. Prior size: 0.4 x 0.3 x 0.4 cm 3. 0.6 X 0.3 x 0.6 cm hypoechoic solid nodule at the upper pole with well-defined margins; . This n odule is wider than tall and shows intranodular vascularity. Prior size: 0.6 x 0.5 x 0.7 cm LEFT: # of nodules measured on left: 2 1. 1.2 X 0.8 x 1.2 cm hypoechoic mixed nodule at the lower pole with well-defined margins; . This nodule is wider than tall and shows intranodular vascularity. Prior size: 1.2 x 0.8 x 1.2 cm 2. 0.7 X 0.4 x 0.7 cm isoechoic solid nodule at the upper pole with well-defined margins; . This no dule is wider than tall and shows intranodular vascularity. Prior size: 0.8 x 0.4 x 0.6 cm ISTHMUS: # of nodules measured in the isthmus: 0 Bilateral neck scanned, no evidence of lymphadenopathy. Tiny cystic nodule also seen in the left lobe. 0.7 x 0.4 cm node noted left lateral neck. IMPRESSION: Findings consistent with multinodular goiter redemonstrated. No significant interval mix ge.
== END | disposition home or self-care (01) ==
LOC: RADUSWWP 11:01
PROVIDERS: ATTEND Family Medicine
DX: E04.1 Nontoxic single thyroid nodule (principal)
CPT/HCPCS: 76536

== ENCOUNTER → 2018-11-22 | Outpatient (CLI) | payer OTHER, BC ==
--- NOTE | 2018-11-25 14:58 | MM ---
Reason for exam: screening (asymptomatic). Last mammogram was performed 1 year and 8 months ago. History: Took hormonal contraceptives for 3 years beginning at age 20. Physical Findings: A clinical breast exam by your physician is recommended on an annual basis and results should be correlated with mammographic findings. MG 3D Screening Mammo W/Cad Bilateral CC and MLO view(s) were taken. Prior study comparison: April 06, 2017, bilateral MG 3d screening mammo w/cad. December 31, 2015, mammogram. There are scattered fibroglandular densities. Benign appearing bilateral calcifications. No suspicious abnormality. No significant changes when compared with prior studies. ASSESSMENT: Benign, BI-RAD 2 RECOMMENDATION: Routine screening mammogram of both breasts in 1 year.
== END | disposition home or self-care (01) ==
LOC: RADMAMWWP 13:23
PROVIDERS: ATTEND Family Medicine
DX: Z12.31 Encounter for screening mammogram for malignant neoplasm of breast (principal)
CPT/HCPCS: 77063; 77067

== ENCOUNTER → 2019-01-08 | Outpatient (CLI) | payer OTHER, BC ==
[2019-01-08 10:26] LABS: Basophils # (A) 0.1 k/uL (0-0.2); Basophils % (A) 1 %; Eosinophils # (A) 0.1 k/uL (0-0.7); Eosinophils % (A) 1 %; HCT 40.4 % (34.0-46.0); HGB 13.3 gm/dL (11.4-16.0); Lymphocytes # (A) 1.7 k/uL (1.0-4.8); Lymphocytes % (A) 23 %; MCH 28.5 pg (25.0-35.0); MCHC 32.8 g/dL (31.0-37.0); MCV 86.9 fL (80.0-100.0); Mean Platelet Volume 7.4; Monocytes # (A) 0.3 k/uL (0-1.0); Monocytes % (A) 4 %; Neutrophils % (A) 70 %; Platelet Count 233 k/uL (150-450); RBC 4.65 m/uL (3.80-5.40); WBC 7.2 k/uL (3.8-10.6)
[2019-01-08 16:09] LABS: African American GFR (CKD) 98.9 (60.0-200.0); Albumin 4.5 g/dL (3.80-4.90); Albumin/Globulin Ratio 2.25 (1.60-3.17); Anion Gap 8.8 mmol/L (4.00-12.00); BUN/Creat Ratio 16.25 Ratio (12.00-20.00); Calcium 9.3 mg/dL (8.7-10.3); Carbon Dioxide 30.2 mmol/L (21.6-31.8); Chol/HDL Ratio 4.05; LDL Cholesterol,Calculated 144.8 mg/dL (0.0-131.0); Total Bilirubin 0.4 mg/dL (0.2-1.2); Total Protein 6.5 g/dL (6.2-8.2); VLDL Calculation 23.2 mg/dL (5.00-40.00)
== END | disposition home or self-care (01) ==
LOC: LABWHC1 09:21
PROVIDERS: ATTEND Family Medicine
DX: E87.6 Hypokalemia (principal); J39.8 Other specified diseases of upper respiratory tract; E66.01 Morbid (severe) obesity due to excess calories
CPT/HCPCS: 36415; 80053; 80061; 85025

== ENCOUNTER 2019-01-23 00:32 | Inpatient (IN) | payer OTHER, BC ==
[2019-01-23] MEDS ORDERED: IPRATROPIUM-ALBUTEROL 3 ML NEB INHALATION STA (00:55)
--- NOTE | 2019-01-23 01:11 | ED ---
SOB HPI - General Chief Complaint: Shortness of Breath Stated Complaint: Diff Breathing Time Seen by Provider: 01/23/19 00:41 Source: patient Mode of arrival: wheelchair Limitations: no limitations - History of Present Illness Initial Comments: Patient is a 53-year-old woman with history of bronchial asthma and also history of tracheomalacia. Patient previously had a tracheal stent that had been placed and was subsequently removed due to chronic infection. She follows with Dr. Johnson, and states that over the past week or so she has been having increased shortness of breath and coughing. She had been seen in the clinic and was given a taper of steroids which she just finished yesterday. The patient states that she doesn't feel like the steroids had improved her respiratory status much. She states that the only time she was feeling okay was when she was using her CPAP at home, and even then she was still having a lot of coughing and some shortness of breath. Patient denies fever or chills. Occasional yellowish sputum. MD Complaint: shortness of breath, cough -: days(s) Consistency: constant Improves With: nothing Worsens With: nothing Known History Of: COPD Associated Symptoms: cough Treatments Prior to Arrival: oxygen, bronchodilator, NIPPV - Related Data Home Medications Medication Instructions Recorded Confirmed Montelukast [Singulair] 10 mg PO DAILY 04/16/17 10/29/18 Ferrous Sulfate [Iron (65 MG 325 mg PO DAILY 10/31/17 10/29/18 Elemental)] Vitamin B Complex 1 cap PO DAILY 02/15/18 10/29/18 Albuterol Nebulized [Ventolin 2.5 mg INHALATION RT-QID PRN 08/23/18 10/29/18 Nebulized] Budesonide [Pulmicort] 0.5 mg INHALATION RT-BID 08/23/18 10/29/18 Cholecalciferol [Vitamin D3 (25 5,000 unit PO DAILY 08/23/18 10/29/18 Mcg = 1000 Iu)] Hydrochlorothiazide [Hydrodiuril] 25 mg PO DAILY 08/23/18 10/29/18 L.acidoph,Paracasei, B.lactis 1 cap PO DAILY 08/23/18 10/29/18 [Probiotic] Multivitamins, Thera [Multivitamin 1 tab PO DAILY 08/23/18 10/29/18 (formulary)] Omeprazole 40 mg PO BID 08/23/18 10/29/18 Promethazine HCl [Phenergan Syrup] 12.5 mg PO HS PRN 08/23/18 10/29/18 Venlafaxine HCl ER [Effexor Xr] 75 mg PO DAILY 08/23/18 10/29/18 Acetaminophen Tab [Tylenol Tab] 500 mg PO BID PRN 09/26/18 10/29/18 Calcium Polycarbophil [Fibercon] 625 mg PO DAILY PRN 09/26/18 10/29/18 Isosorbide Mononitrate [Isosorbide 30 mg PO DAILY 09/26/18 10/29/18 Mononitrate ER] Methocarbamol [Robaxin] 500 mg PO Q6H PRN 09/26/18 10/29/18 Metoprolol Succinate (ER) [Toprol 25 mg PO DAILY 09/26/18 10/29/18 Xl] Sennosides [Senna] 17.2 mg PO DAILY PRN 09/26/18 10/29/18 Acetylcysteine [Mucomyst] 200 mg INHALATION DAILY 10/29/18 10/29/18 Ipratropium-Albuterol Nebulize 3 ml INHALATION BID 10/29/18 10/29/18 [Duoneb 0.5 mg-3 mg/3 ml Soln] Previous Rx's Medication Instructions Recorded Levalbuterol Tartrate [Xopenex Hfa 2 puff INHALATION RT-QID PRN #1 03/31/18 Inhaler] hfa.aer.ad Allergies Allergy/AdvReac Type Severity Reaction Status Date / Time ciprofloxacin [From Cipro] Allergy Itching Verified 01/23/19 00:38 gluten Allergy Abdominal Verified 01/23/19 00:38 Pain shellfish derived [Shellfish] Allergy Vomiting Verified 01/23/19 00:38 NSAIDS (Non-Steroidal AdvReac Abdominal Verified 01/23/19 00:38 Anti-Inflamma Pain Review of Systems ROS Statement: Those systems with pertinent positive or pertinent negative responses have been documented in the HPI. ROS Other: All systems not noted in ROS Statement are negative. Constitutional: Denies: fever, chills Respiratory: Reports: cough, dyspnea, wheezes Cardiovascular: Denies: chest pain, palpitations, orthopnea, edema, syncope Gastrointestinal: Denies: abdominal pain, vomiting, diarrhea Genitourinary: Denies: dysuria, hematuria Musculoskeletal: Denies: back pain Skin: Denies: rash Neurological: Denies: headache, weakness, numbness Past Medical History Past Medical History: Asthma, GERD/Reflux, Osteoarthritis (OA), Pneumonia, Sleep Apnea/CPAP/BIPAP, Thyroid Disorder Additional Past Medical History / Comment(s): Sinusiti, bronchospasms, past cardiomyopathy thought viral, occasional tachycardia especially when eats and with activity, ITZ with CPAP use, near syncope when she had the flu and with a dental procedure-checked fitbit and heart rate in 50s, thyroid nodules with neg bx. Spinal stenosis. Gluten sensitivity. Vitamin D deficiency, iron deficiency anemia, migraines,bruising more easily History of Any Multi-Drug Resistant Organisms: None Reported Past Surgical History: Appendectomy, Back Surgery, Bariatric Surgery, Section, Heart Catheterization, Hysterectomy, Orthopedic Surgery, Tonsillectomy Additional Past Surgical History / Comment(s): 2012 gastric sleeve, with hiatal hernia repair 11/2016 spinal fusion/decompression L4-L5 and S1, bilateral shoulder arthroscopies, 3 laparotomies d/t pain/ovarian cyst/adhesions, hysterectomy with R oophorectomy, 2 D&Cs after miscarriages, lipoma removed from left side of back, 2016 Cardiac cath-normal, colonoscopy, EGD's, trachea stent removed Past Anesthesia/Blood Transfusion Reactions: Motion Sickness, Postoperative Nausea & Vomiting (PONV) Additional Past Anesthesia/Blood Transfusion Reaction / Comment(s): difficult iv start Past Psychological History: Anxiety, Depression Smoking Status: Never smoker Past Alcohol Use History: Occasional Past Drug Use History: None Reported - Past Family History Father Family Medical History: Cancer, Diabetes Mellitus, Renal Disease Additional Family Medical History / Comment(s): Father is from kidney failure d/t diabetes. He at the age of 68yrs. Mother Family Medical History: Cancer, Congestive Heart Failure (CHF), Coronary Artery Disease (CAD), Diabetes Mellitus, Myocardial Infarction (CA), Thyroid Disorder Additional Family Medical History / Comment(s): Mother has had multiple MIs with first one at about age 72 yrs. She has had CABG and has 7 cardiac stents. She is in remision from uterine cancer and has osteoporosis. She is 81 yrs old, polymyalgia rheumatica . General Exam Limitations: no limitations General appearance: alert, in no apparent distress Head exam: Present: atraumatic, normocephalic Eye exam: Present: normal appearance. Absent: scleral icterus, conjunctival injection ENT exam: Present: normal oropharynx Neck exam: Present: normal inspection Respiratory exam: Present: respiratory distress (Tachypnea), wheezes, rhonchi. Absent: rales, stridor Cardiovascular Exam: Present: regular rate, normal rhythm, normal heart sounds. Absent: systolic murmur, diastolic murmur, rubs, gallop GI/Abdominal exam: Present: soft. Absent: distended, tenderness, guarding, rebound Extremities exam: Present: normal inspection, normal capillary refill. Absent: pedal edema, calf tenderness Back exam: Present: normal inspection. Absent: CVA tenderness (R), CVA tenderness (L) Neurological exam: Present: alert Skin exam: Present: warm, dry, intact, normal color. Absent: rash Course Vital Signs 01/23/19 01/23/19 01/23/19 00:35 00:57 01:00 Temperature 98.2 F Pulse Rate 91 105 H 98 Respiratory 28 H 36 H 39 H Rate Blood Pressure 135/94 140/112 O2 Sat by Pulse 96 97 98 Oximetry 01/23/19 01/23/19 01/23/19 01:02 01:12 02:00 Temperature Pulse Rate 96 101 H Respiratory 10 L Rate Blood Pressure 128/103 O2 Sat by Pulse 99 Oximetry 01/23/19 03:00 Temperature Pulse Rate 75 Respiratory 9 L Rate Blood Pressure 142/97 O2 Sat by Pulse 98 Oximetry Medical Decision Making - Lab Data Result diagrams: 01/23/19 00:50 01/23/19 00:50 Lab Results 01/23/19 01/23/19 01/23/19 Range/Units 00:50 00:50 00:50 WBC 12.0 H (3.8-10.6) k/uL RBC 5.11 (3.80-5.40) m/uL Hgb 14.9 (11.4-16.0) gm/dL Hct 43.3 (34.0-46.0) % MCV 84.8 (80.0-100.0) fL MCH 29.2 (25.0-35.0) pg MCHC 34.4 (31.0-37.0) g/dL RDW 12.6 (11.5-15.5) % Plt Count 261 (150-450) k/uL Neutrophils % 65 % Lymphocytes % 28 % Monocytes % 5 % Eosinophils % 1 % Basophils % 0 % Neutrophils # 7.7 (1.3-7.7) k/uL Lymphocytes # 3.4 (1.0-4.8) k/uL Monocytes # 0.6 (0-1.0) k/uL Eosinophils # 0.1 (0-0.7) k/uL Basophils # 0.0 (0-0.2) k/uL PT (9.0-12.0) sec INR (<1.2) APTT (22.0-30.0) sec Sodium 139 (137-145) mmol/L Potassium 3.4 L (3.5-5.1) mmol/L Chloride 100 (98-107) mmol/L Carbon Dioxide 26 (22-30) mmol/L Anion Gap 13 mmol/L BUN 21 H (7-17) mg/dL Creatinine 0.94 (0.52-1.04) mg/dL Est GFR (CKD-EPI)AfAm 81 (>60 ml/min/1.73 sqM) Est GFR (CKD-EPI)NonAf 71 (>60 ml/min/1.73 sqM) Glucose 132 H (74-99) mg/dL Calcium 10.3 H (8.4-10.2) mg/dL Total Bilirubin 0.5 (0.2-1.3) mg/dL AST 22 (14-36) U/L ALT 18 (9-52) U/L Alkaline Phosphatase 79 (38-126) U/L Troponin I (0.000-0.034) ng/mL NT-Pro-B Natriuret Pep 45 pg/mL Total Protein 8.4 H (6.3-8.2) g/dL Albumin 5.3 H (3.5-5.0) g/dL 01/23/19 01/23/19 Range/Units 00:50 00:50 WBC (3.8-10.6) k/uL RBC (3.80-5.40) m/uL Hgb (11.4-16.0) gm/dL Hct (34.0-46.0) % MCV (80.0-100.0) fL MCH (25.0-35.0) pg MCHC (31.0-37.0) g/dL RDW (11.5-15.5) % Plt Count (150-450) k/uL Neutrophils % % Lymphocytes % % Monocytes % % Eosinophils % % Basophils % % Neutrophils # (1.3-7.7) k/uL Lymphocytes # (1.0-4.8) k/uL Monocytes # (0-1.0) k/uL Eosinophils # (0-0.7) k/uL Basophils # (0-0.2) k/uL PT 10.5 (9.0-12.0) sec INR 1.0 (<1.2) APTT 26.3 (22.0-30.0) sec Sodium (137-145) mmol/L Potassium (3.5-5.1) mmol/L Chloride (98-107) mmol/L Carbon Dioxide (22-30) mmol/L Anion Gap mmol/L BUN (7-17) mg/dL Creatinine (0.52-1.04) mg/dL Est GFR (CKD-EPI)AfAm (>60 ml/min/1.73 sqM) Est GFR (CKD-EPI)NonAf (>60 ml/min/1.73 sqM) Glucose (74-99) mg/dL Calcium (8.4-10.2) mg/dL Total Bilirubin (0.2-1.3) mg/dL AST (14-36) U/L ALT (9-52) U/L Alkaline Phosphatase (38-126) U/L Troponin I <0.012 (0.000-0.034) ng/mL NT-Pro-B Natriuret Pep pg/mL Total Protein (6.3-8.2) g/dL Albumin (3.5-5.0) g/dL - EKG Data -: EKG Interpreted by Me EKG shows normal: sinus rhythm, axis (Normal), intervals (Normal) Rate: tachycardia (Rate 108 bpm) Interpretation: nonspecific ST-T wave changes, LVH Disposition Clinical Impression: Asthma with exacerbation, Tracheomalacia, Pneumonia Disposition: ADMITTED IP TO THIS [facility] Condition: Fair Is patient prescribed a controlled substance at d/c from ED?: No
[2019-01-23 01:14] LABS: Basophils % (A) 0 %; Eosinophils # (A) 0.1 k/uL (0-0.7); Eosinophils % (A) 1 %; HCT 43.3 % (34.0-46.0); HGB 14.9 gm/dL (11.4-16.0); Lymphocytes # (A) 3.4 k/uL (1.0-4.8); Lymphocytes % (A) 28 %; MCH 29.2 pg (25.0-35.0); MCHC 34.4 g/dL (31.0-37.0); MCV 84.8 fL (80.0-100.0); Mean Platelet Volume 7.1; Monocytes # (A) 0.6 k/uL (0-1.0); Monocytes % (A) 5 %; Neutrophils # (A) 7.7 k/uL (1.3-7.7); Neutrophils % (A) 65 %; Platelet Count 261 k/uL (150-450); RBC 5.11 m/uL (3.80-5.40); RDW 12.6 % (11.5-15.5)
[2019-01-23 01:23] LABS: Partial Thromboplastin Time 26.3 sec (22.0-30.0); Prothrombin Time 10.5 sec (9.0-12.0)
[2019-01-23 01:28] LABS: Albumin 5.3 g/dL (3.5-5.0); Calcium 10.3 mg/dL (8.4-10.2); Potassium 3.4 mmol/L (3.5-5.1); Total Bilirubin 0.5 mg/dL (0.2-1.3); Total Protein 8.4 g/dL (6.3-8.2)
--- NOTE | 2019-01-23 01:37 | XR ---
EXAMINATION TYPE: XR chest 1V DATE OF EXAM: 01/23/2019 COMPARISON: 09/26/2018 HISTORY: Difficulty breathing TECHNIQUE: Single frontal view of the chest is obtained. FINDINGS: Heart is normal. There is a minimal infiltrate at the right lung base. The other lung fiel ds are fairly clear. There is no heart failure. There is no pleural effusion. There are chest leads. IMPRESSION: Minimal infiltrate and atelectasis right lung base unchanged. Normal heart.
[2019-01-23] MEDS ORDERED: AZITHROMYCIN 500 MG TAB PO STA (02:09)
[2019-01-23] MEDS ORDERED: PNEUMONIA PROTOCOL UTILIZED 1 EACH MISC PO PRN (03:03)
[2019-01-23] MEDS ORDERED: Potassium Replacement Protocol 1 EACH MISC MISCELLANE PRN (05:32)
[2019-01-23] MEDS ORDERED: METHOCARBAMOL 500 MG TAB PO PRN (06:00)
[2019-01-23] MEDS: POTASSIUM CHLORIDE ER 20 MEQ TAB.ER PO SCH ×2 (06:44→08:24)
[2019-01-23] MEDS: SODIUM CHLORIDE 0.9% 1,000 ML IV SCH ×3 (06:45→20:50)
[2019-01-23] MEDS: METOPROLOL SUCCINATE (ER) 25 MG TAB.ER.24H PO SCH (08:25)
[2019-01-23] MEDS: HYDROCHLOROTHIAZIDE 25 MG TAB PO SCH ×2 (08:25→08:30)
[2019-01-23] MEDS: FERROUS SULFATE 325 MG TAB PO SCH (08:25)
[2019-01-23] MEDS: ISOSORBIDE MONONITRATE ER 30 MG TAB.ER.24H PO SCH (08:25)
[2019-01-23] MEDS: VENLAFAXINE HCL ER 75 MG CAP PO SCH (08:26)
[2019-01-23] MEDS: MONTELUKAST 10 MG TAB PO SCH (08:26)
[2019-01-23] MEDS: PANTOPRAZOLE 40 MG TABLET PO SCH ×2 (08:26→20:36)
[2019-01-23] MEDS ORDERED: ACETAMINOPHEN TAB 500 MG TAB PO PRN (09:00)
[2019-01-23] MEDS: BUDESONIDE 0.5 MG/2 ML NEBU INHALATION SCH ×2 (09:15→20:02)
[2019-01-23] MEDS: ACETYLCYSTEINE 800 MG/4 ML VIAL INHALATION SCH (09:15)
[2019-01-23] MEDS: IPRATROPIUM-ALBUTEROL 3 ML NEB INHALATION SCH ×2 (09:15→20:02)
--- NOTE | 2019-01-23 10:28 | P.CNPUL ---
History of Present Illness Consult date: 01/23/19 Reason for consult: dyspnea History of present illness: This is a 53-year-old female patient is known to me. This patient is a very complicated case of severe asthma, severe tracheobronchomalacia and obstructive sleep apnea. The patient was taking care of with me here and through interventional pulmonary program at [facility]. As mentioned, she has severe cervical bronchomalacia and she had a Chary-en-Y stent inserted which stayed in for a total of 4-1/2 months and ultimately the stent was taken out as the patient was having significant infectious complications with various bacteria including staph aureus, not MRSA. The patient required several antibiotic treatments. During the course of her disease, the patient underwent several CAT scans of the chest I was able to obtain copies of all CAT scans that were done at [facility]. She was seen by Dr. Tijerina and Dr. Davidson. She was not a surgical candidate at this point in time. The stent was removed and her last bout of antibiotics was Bactrim that was given for a staphylococcal infection. As for the most recent CAT scan of the chest that was done on 08/23/2018, there was narrowing of the left mainstem bronchus secondary to encasement by a soft tissue density that was a new finding. There was also suggestion of paratracheal air consistent with a small area of no mediastinum and this could be probably rates to either distends or narrowing of the left mainstem bronchus and the branching bronchi. There was also interval enlargement of a right paratracheal lymph node measuring 1 x 1.4 cm. There was development of subcarinal and posterior mediastinal soft tissue density suspicious for confluent zenon mass and small bilateral perihilar lymph nodes were also identified. Based on this, the patient will need a follow-up CAT scan of the chest. She has obstructive sleep apnea which is mild in severity with an AHI of 14. I switched her to an automatic mode with a minimum pressure of 10 and a maximum pressure of 20. She feels that the pressure adjustments helped her breathe. In fact she uses her APAP on and off anytime when she gets short of breath. I performed a bronchoscopy on her after treating her with antibiotics. The bronchoscopy was completed in 10/2018 without any complication. There was a severe component of tracheal bronchomalacia and this was visualized live on the bronchoscope. Therapeutic airway suctioning was done. A BAL was done. The cultures were negative for any microbes other than Cladosporium . Note that there is no MRSA infection. She is using Pulmicort Respules twice a day and Xopenex around the clock as needed. She has a regular CPAP . She also has a portable CPAP unit and a portable nebulizer. The patient came yesterday to the emergency department because of worsening shortness of breath. In fact she had contacted my office for increased dyspnea and I gave her a prednisone burst taper which he took without any significant benefit. Antibiotics was given. In the emergency, the patient was having shortness of breath and cough and. She has a rattle unable to bring up any sputum. She has a harsh barky cough related to her severe tracheal bronchomalacia. She thought that the steroids did not help her with her breathing. She was using her CPAP. She was using a portable nebulizer. She will occasionally bring up some yellowish sputum. Her white cell count was at 12.0. Rest of the blood work and electrodes are all within normal limits. Troponins were negative. The chest x-ray showed mild infiltration/atelectasis of the right lung base that was essentially unchanged. The patient was admitted to the hospital. She was started on a combination of Ventolin/DuoNeb updrafts [id number], Pulmicort Respules twice a day, Zithromax 500 mg by mouth daily along with Rocephin and she was started on U commenced nebulized treatments once a day. She is hemodynamically stable. Currently she denied oxygen at 3 L and her pulse ox is around 92%. No nausea. No vomiting. No diarrhea. Review of Systems Constitutional Constitutional: no excess weight gain, no excess weight loss, no loss of appetite, no fever, no fatigue, diminished activity, fatigue Eyes Eyes: no eye pain, no blurry vision, no eye redness, no eye itchiness, no eye swelling, no eye discharge ENMT ENMT: no ear pain, no ear discharge, no hearing loss, no sinus pressure, no swelling, no congestion, no sore throat, no hoarseness, no mouth lesions, no nasal discharge Cardiovascular Cardiovascular: no chest pain, no rapid heart rate, no cyanosis, no pallor Respiratory Respiratory: chest tightness, no pain with respiration, normal breathing sounds, normal respiration rate, increased cough, dry, wheezing, difficulty breathing Gastrointestinal GI: no difficulty swallowing, no abdominal pain, no nausea, no vomiting, no diarrhea, no constipation, no blood in stools Genitourinary General: no blood in urine, no pain during urination, no increased frequency of urination, no voiding urgency Musculoskeletal Musculoskeletal: no soft tissue swelling, no joint swelling, no limited motion, no myalgia Skin Skin: no pain, no itchiness, no skin redness, no rash, no hives, no skin lesions , no swelling, no bruising Neurological symptoms Neuro: no numbness, no weakness, no tingling, no burning, no shooting pain, no headache, no diziness, no loss of consciousness Endocrine Endocrine: no increased thirst, no temperature intolerance Psychiatric Psych: no depression, no sleep disturbances, feeling safe in relationship, no alcohol abuse Hematologic/Lymphatic Hematologic/Lymphatic no swollen glands Allergic/Immunologic Allergy/Immunologic: no sinus pressure, no itching Past Medical History Past Medical History: Asthma, GERD/Reflux, Osteoarthritis (OA), Pneumonia, Sleep Apnea/CPAP/BIPAP, Thyroid Disorder Additional Past Medical History / Comment(s): severe tracheobronchomalacia , obstructive sleep apnea, past cardiomyopathy thought viral, occasional tachycardia especially when eats and with activity, ITZ with CPAP use, near syncope when she had the flu and with a dental procedure-checked fitbit and heart rate in 50s, thyroid nodules with neg bx. Spinal stenosis. Gluten sensitivity. Vitamin D deficiency, iron deficiency anemia, migraines,bruising more easily History of Any Multi-Drug Resistant Organisms: None Reported Past Surgical History: Appendectomy, Back Surgery, Bariatric Surgery, Section, Heart Catheterization, Hysterectomy, Orthopedic Surgery, Tonsillectomy Additional Past Surgical History / Comment(s): 2012 gastric sleeve, with hiatal hernia repair 11/2016 spinal fusion/decompression L4-L5 and S1, bilateral shoulder arthroscopies, 3 laparotomies d/t pain/ovarian cyst/adhesions, hysterectomy with R oophorectomy, 2 D&Cs after miscarriages, lipoma removed from left side of back, 2016 Cardiac cath-normal, colonoscopy, EGD's, trachea stent removed Past Anesthesia/Blood Transfusion Reactions: Motion Sickness, Postoperative Nausea & Vomiting (PONV) Additional Past Anesthesia/Blood Transfusion Reaction / Comment(s): difficult iv start Past Psychological History: Anxiety, Depression Smoking Status: Never smoker Past Alcohol Use History: Occasional Past Drug Use History: None Reported - Past Family History Father Family Medical History: Cancer, Diabetes Mellitus, Renal Disease Additional Family Medical History / Comment(s): Father is from kidney failure d/t diabetes. He at the age of 68yrs. Mother Family Medical History: Cancer, Congestive Heart Failure (CHF), Coronary Artery Disease (CAD), Diabetes Mellitus, Myocardial Infarction (TN), Thyroid Disorder Additional Family Medical History / Comment(s): Mother has had multiple MIs with first one at about age 72 yrs. She has had CABG and has 7 cardiac stents. She is in remision from uterine cancer and has osteoporosis. She is 81 yrs old, amberly ymyalgia rheumatica . Medications and Allergies Home Medications Medication Instructions Recorded Confirmed Type Montelukast [Singulair] 10 mg PO DAILY 04/16/17 01/23/19 History Ferrous Sulfate [Iron (65 MG 325 mg PO DAILY 10/31/17 01/23/19 History Elemental)] Vitamin B Complex 1 cap PO DAILY 02/15/18 01/23/19 History Levalbuterol Tartrate [Xopenex Hfa 2 puff INHALATION RT-QID PRN #1 03/31/18 01/23/19 Rx Inhaler] hfa.aer.ad Albuterol Nebulized [Ventolin 2.5 mg INHALATION RT-QID PRN 08/23/18 01/23/19 History Nebulized] Budesonide [Pulmicort] 0.5 mg INHALATION RT-BID 08/23/18 01/23/19 History Cholecalciferol [Vitamin D3 (25 5,000 unit PO DAILY 08/23/18 01/23/19 History Mcg = 1000 Iu)] L.acidoph,Paracasei, B.lactis 1 cap PO DAILY 08/23/18 01/23/19 History [Probiotic] Multivitamins, Thera [Multivitamin 1 tab PO DAILY 08/23/18 01/23/19 History (formulary)] Omeprazole 40 mg PO BID 08/23/18 01/23/19 History Promethazine HCl [Phenergan Syrup] 12.5 mg PO HS PRN 08/23/18 01/23/19 History Venlafaxine HCl ER [Effexor Xr] 75 mg PO DAILY 08/23/18 01/23/19 History Acetaminophen Tab [Tylenol Tab] 500 mg PO BID PRN 09/26/18 01/23/19 History Calcium Polycarbophil [Fibercon] 625 mg PO DAILY PRN 09/26/18 01/23/19 History Isosorbide Mononitrate [Isosorbide 15 mg PO DAILY 09/26/18 01/23/19 History Mononitrate ER] Methocarbamol [Robaxin] 500 mg PO Q6H PRN 09/26/18 01/23/19 History Metoprolol Succinate (ER) [Toprol 25 mg PO DAILY 09/26/18 01/23/19 History Xl] Sennosides [Senna] 17.2 mg PO DAILY PRN 09/26/18 01/23/19 History Acetylcysteine [Mucomyst] 200 mg INHALATION DAILY 10/29/18 01/23/19 History Ipratropium-Albuterol Nebulize 3 ml INHALATION RT-BID 10/29/18 01/23/19 History [Duoneb 0.5 mg-3 mg/3 ml Soln] Naltrexone HCl/Bupropion HCl 1 tab PO DAILY 01/23/19 01/23/19 History [Contrave ER 8-90 mg Tablet] Triamterene/Hydrochlorothiazid 1 cap PO DAILY 01/23/19 01/23/19 History [Dyazide 37.5-25 Capsule] Allergies Allergy/AdvReac Type Severity Reaction Status Date / Time ciprofloxacin [From Cipro] Allergy Itching Verified 01/23/19 09:14 gluten Allergy Abdominal Verified 01/23/19 09:14 Pain shellfish derived [Shellfish] Allergy Vomiting Verified 01/23/19 09:14 NSAIDS (Non-Steroidal AdvReac Abdominal Verified 01/23/19 09:14 Anti-Inflamma Pain Physical Exam Vitals: Vital Signs Temp Pulse Pulse Resp BP BP Pulse Ox 01/23/19 09:30 102 H 01/23/19 09:15 98 01/23/19 08:00 97.8 F 82 14 120/79 98 01/23/19 04:05 98.0 F 82 22 120/79 99 01/23/19 03:00 75 9 L 142/97 98 01/23/19 02:00 10 L 128/103 99 01/23/19 01:12 101 H 11/28/19 01:02 96 01/23/19 01:00 98 39 H 140/112 98 01/23/19 00:57 105 H 36 H 97 01/23/19 00:35 98.2 F 91 28 H 135/94 96 Intake and Output 01/22/19 01/23/19 01/23/19 22:59 06:59 14:59 Intake Total 100 Output Total 250 Balance -150 Intake: IV 100 Sodium Chloride 0.9% 1, 100 000 ml @ 100 mls/hr IV . Q10H [facility] Rx#:[id number] Output: Urine 250 Other: Voiding Method Bedside Commode # Voids 0 Weight 89.811 kg General Appearance no diaphoresis, no respiratory distress, speech not interrupted by breaths, no dyspnea, no pallor, not cachectic, well nourished, appears well, obesity HEENT no pursed lip breathing, no jugular venous distention, no mucous membrane cyanosis, no perioral cyanosis, mallampati classification: class 1, Mallampati Classification: Class 4 Chest diminished breath sounds along with some expiratory wheezes heard throughout the lung luevano bilaterally. Scattered rhonchi. Active breath sounds are markedly diminished and the patient is unable to effectively bruits as her breathing is frequently interrupted by Heart no right ventricular heave, no distant heart sounds, no s3 gallop, (normal) jugular vein: jugular venous distention: by 0cm, (normal) jugular vein GI bowel sounds: hyperactive (borborygmi), bowel sounds: diminished or absent Extremities no cyanosis, no clubbing, no edema Neurologic no decreased mental status, no somnolence, no confusion Assisstive Devices: ambulates with no assitive devices Gait and Mobility: gait WNL, full weight bearing Examination of the skin revealed no evidence of significant rashes, suspicious appearing nevi or other concerning lesions. Results - Laboratory Findings CBC and BMP: 01/23/19 00:50 01/23/19 00:50 PT/INR, D-dimer PT 10.5 sec (9.0-12.0) 01/23/19 00:50 INR 1.0 (<1.2) 01/23/19 00:50 Abnormal lab findings: Abnormal Labs 01/23/19 01/23/19 00:50 00:50 WBC 12.0 H Potassium 3.4 L BUN 21 H Glucose 132 H Calcium 10.3 H Total Protein 8.4 H Albumin 5.3 H - Diagnostic Findings Chest x-ray: image reviewed Assessment and Plan Plan: 1 acute exacerbation of severe persistent bronchial asthma. The patient is actively bronchospastic and wheezy. evidence of pneumonia. The exact trigger is not known and the patient has failed outpatient with a prednisone burst taper. Note that she has severe check a bronchomalacia which is further complicating his exacerbation 2 severe check a bronchomalacia previous insertion and removal of a Chary-en-Y stents. She is post bronchoscopy. No active infection based on the most recent bronchoscopy that was done back in October 2018 3 obstructive sleep apnea maintained on APAP 4 Acid reflux 5 hypothyroidism 6 history of viral cardiomyopathy 7 vitamin D deficiency 8 iron deficiency 9 history of bariatric surgery him a post-gastric sleeve. 10 history of spinal stenosis Plan Continue the current treatment. Add IV Solu-Medrol. Add promethazine for cough. Add a combination of Perforomist and Pulmicort neb last treatment twice a day. Continue with DuoNeb nebulized treatments [id number]. May con roof assembler bronchoscopy that it is stage. Chest x-ray was reviewed. Utilizing her APAP from home. We'll follow.
[2019-01-23] MEDS: methylPREDNISolone SOD SUCCI 125 MG/2 ML VIAL IV SCH ×3 (12:36→22:40)
[2019-01-23] MEDS ORDERED: ONDANSETRON 4 MG/2 ML VIAL IVP PRN (13:53)
[2019-01-23] MEDS ORDERED: CALCIUM CARBONATE 500 MG CHEWABLE PO PRN (13:53)
[2019-01-23] MEDS: ALBUTEROL NEBULIZED 2.5 MG/3 ML INHALATION PRN (14:00)
[2019-01-23] MEDS: TRIAMTERENE-HCTZ 37.5-25MG 1 EACH CAP PO SCH (15:49)
[2019-01-23] MEDS ORDERED: PROMETHAZINE HCL 6.25 MG/5 ML CUP PO SCH (16:00)
[2019-01-23] MEDS ORDERED: NALOXONE 0.4 MG/ML 1 ML VIAL IV PRN (17:22)
[2019-01-23] MEDS ORDERED: HYDROcodone/APAP 5-325MG 1 EACH TAB PO PRN (17:22)
[2019-01-23] MEDS ORDERED: MELATONIN 3 MG TABLET PO PRN (17:22)
[2019-01-23] MEDS ORDERED: CALCIUM POLYCARBOPHIL 625 MG TAB PO PRN (17:28)
[2019-01-23] MEDS: PROMETHAZINE HCL 6.25 MG/5 ML CUP PO SCH ×2 (17:31→22:41)
--- NOTE | 2019-01-23 17:37 | P.HPIM ---
History of Present Illness H&P Date: 01/23/19 (delayed charting patient seen at 1410) Chief Complaint: dyspnea Patient originally admitted to [facility], PCP. , Patient switched to our service 01/23 at 1030 Patient is a 53-year-old female with a past medical history of severe bronchial asthma, severe tracheobronchomalacia status post insertion and removal of tracheal stent, obstructive sleep apnea, and osteoarthritis who presented to the emergency department with complaints of dyspnea. She had been suffering from a cough and shortness of breath for approximately 2 weeks. She contacted her buyer assistant Dr. Johnson who prescribed a Medrol Dosepak. She finished this 2 days prior to presentation but did not have any relief in her symptoms. In the ER she underwent an extensive evaluation. On arrival she was to get back with a respiratory rate of 28. Laboratory analysis showed a white blood cell count of 12, potassium 3.4, BUN 21, calcium 10.3, and albumin of 5.3. Chest x- ray was unchanged from prior demonstrated infiltrate at the right base. She was started on steroids for acute exacerbation of asthma on antibiotics for possible tracheobronchitis. She was initiated on CPAP therapy and admitted to the ICU. Of note the patient follow both with [facility] at [facility] and Dr. Johnson. She is currently trying to loose weight so that she can undergo surgery. She also uses her CPAP often anytime she is having shortness of breath to aid in this. Patient seen and examined at bedside. She reports that for the last several weeks she has having worsening shortness of breath and cough. She reports that her cough has been intermittently productive of yellow sputum. She is also sodium associated this with a rattling in her chest but typically is not there. She's been using her CPAP more often as well as taking her breathing treatments. She completed a Medrol Dosepak which did not help her breathing. She reports that she has been having more feelings of her airway compromising. She feels as though she cannot take a deep breath anytime she drinks any extremely cold liquid. She has very limited functional capacity and does not leave her house often. Since she had a bronchial stent placed for half months ago she has been able to return to work. She reports extreme fatigue. She just overall not feeling well. She is asking to have another therapeutic bronchoscopy performed for BAL. Review of Systems Pertinent positives and negatives as discussed in HPI, a complete review of systems was performed and all other systems are negative. Past Medical History Past Medical History: Asthma, GERD/Reflux, Osteoarthritis (OA), Pneumonia, Sleep Apnea/CPAP/BIPAP, Thyroid Disorder Additional Past Medical History / Comment(s): severe tracheobronchomalacia , obstructive sleep apnea, past cardiomyopathy thought viral, occasional tachycardia especially when eats and with activity, ITZ with CPAP use, near syncope when she had the flu and with a dental procedure-checked fitbit and heart rate in 50s, thyroid nodules with neg bx. Spinal stenosis. Gluten sensitivity. Vitamin D deficiency, iron deficiency anemia, migraines,bruising more easily History of Any Multi-Drug Resistant Organisms: None Reported Past Surgical History: Appendectomy, Back Surgery, Bariatric Surgery, Section, Heart Catheterization, Hysterectomy, Orthopedic Surgery, Tonsillectomy Additional Past Surgical History / Comment(s): 2012 gastric sleeve, with hiatal hernia repair 11/2016 spinal fusion/decompression L4-L5 and S1, bilateral shoulder arthroscopies, 3 laparotomies d/t pain/ovarian cyst/adhesions, hysterectomy with R oophorectomy, 2 D&Cs after miscarriages, lipoma removed from left side of back, 2016 Cardiac cath-normal, colonoscopy, EGD's, trachea stent removed Past Anesthesia/Blood Transfusion Reactions: Motion Sickness, Postoperative Nausea & Vomiting (PONV) Additional Past Anesthesia/Blood Transfusion Reaction / Comment(s): difficult iv start Past Psychological History: Anxiety, Depression Smoking Status: Never smoker Past Alcohol Use History: Occasional Past Drug Use History: None Reported - Past Family History Father Family Medical History: Cancer, Diabetes Mellitus, Renal Disease Additional Family Medical History / Comment(s): Father is from kidney failure d/t diabetes. He at the age of 68yrs. Mother Family Medical History: Cancer, Congestive Heart Failure (CHF), Coronary Artery Disease (CAD), Diabetes Mellitus, Myocardial Infarction (MA), Thyroid Disorder Additional Family Medical History / Comment(s): Mother has had multiple MIs with first one at about age 72 yrs. She has had CABG and has 7 cardiac stents. She is in remision from uterine cancer and has osteoporosis. She is 81 yrs old, polymyalgia rheumatica . Medications and Allergies Home Medications Medication Instructions Recorded Confirmed Type Montelukast [Singulair] 10 mg PO DAILY 04/16/17 01/23/19 History Ferrous Sulfate [Iron (65 MG 325 mg PO DAILY 10/31/17 01/23/19 History Elemental)] Vitamin B Complex 1 cap PO DAILY 02/15/18 01/23/19 History Levalbuterol Tartrate [Xopenex Hfa 2 puff INHALATION RT-QID PRN #1 03/31/18 01/23/19 Rx Inhaler] hfa.aer.ad Albuterol Nebulized [Ventolin 2.5 mg INHALATION RT-QID PRN 08/23/18 01/23/19 History Nebulized] Budesonide [Pulmicort] 0.5 mg INHALATION RT-BID 08/23/18 01/23/19 History Cholecalciferol [Vitamin D3 (25 5,000 unit PO DAILY 08/23/18 01/23/19 History Mcg = 1000 Iu)] L.acidoph,Paracasei, B.lactis 1 cap PO DAILY 08/23/18 01/23/19 History [Probiotic] Multivitamins, Thera [Multivitamin 1 tab PO DAILY 08/23/18 01/23/19 History (formulary)] Omeprazole 40 mg PO BID 08/23/18 01/23/19 History Promethazine HCl [Phenergan Syrup] 12.5 mg PO HS PRN 08/23/18 01/23/19 History Venlafaxine HCl ER [Effexor Xr] 75 mg PO DAILY 08/23/18 01/23/19 History Acetaminophen Tab [Tylenol Tab] 500 mg PO BID PRN 09/26/18 01/23/19 History Calcium Polycarbophil [Fibercon] 625 mg PO DAILY PRN 09/26/18 01/23/19 History Isosorbide Mononitrate [Isosorbide 15 mg PO DAILY 09/26/18 01/23/19 History Mononitrate ER] Methocarbamol [Robaxin] 500 mg PO Q6H PRN 09/26/18 01/23/19 History Metoprolol Succinate (ER) [Toprol 25 mg PO DAILY 09/26/18 01/23/19 History Xl] Sennosides [Senna] 17.2 mg PO DAILY PRN 09/26/18 01/23/19 History Acetylcysteine [Mucomyst] 200 mg INHALATION DAILY 10/29/18 01/23/19 History Ipratropium-Albuterol Nebulize 3 ml INHALATION RT-BID 10/29/18 01/23/19 History [Duoneb 0.5 mg-3 mg/3 ml Soln] Naltrexone HCl/Bupropion HCl 1 tab PO DAILY 01/23/19 01/23/19 History [Contrave ER 8-90 mg Tablet] Triamterene/Hydrochlorothiazid 1 cap PO DAILY 01/23/19 01/23/19 History [Dyazide 37.5-25 Capsule] Allergies Allergy/AdvReac Type Severity Reaction Status Date / Time ciprofloxacin [From Cipro] Allergy Itching Verified 01/23/19 09:14 gluten Allergy Abdominal Verified 01/23/19 09:14 Pain shellfish derived [Shellfish] Allergy Vomiting Verified 01/23/19 09:14 NSAIDS (Non-Steroidal AdvReac Abdominal Verified 01/23/19 09:14 Anti-Inflamma Pain Physical Exam Osteopathic Statement: *. No significant issues noted on an osteopathic structural exam other than those noted in the History and Physical/Consult. Vitals: Vital Signs Temp Pulse Pulse Resp BP BP Pulse Ox 01/23/19 16:10 94 L 01/23/19 15:47 98.4 F 86 20 108/73 98 01/23/19 14:16 69 01/23/19 14:00 75 01/23/19 12:00 98.5 F 81 20 98/64 95 01/23/19 09:30 89 01/23/19 09:15 98 01/23/19 08:00 97.8 F 82 14 120/79 98 01/23/19 04:05 98.0 F 82 22 120/79 99 01/23/19 03:00 75 9 L 142/97 98 01/23/19 02:00 10 L 128/103 99 01/23/19 01:12 101 H 01/23/19 01:02 96 01/23/19 01:00 98 39 H 140/112 98 01/23/19 00:57 105 H 36 H 97 01/23/19 00:35 98.2 F 91 28 H 135/94 96 Intake and Output 01/23/19 01/23/19 01/23/19 06:59 14:59 22:59 Intake Total 1000 Output Total 251 Balance 749 Intake: IV 700 Sodium Chloride 0.9% 1, 700 000 ml @ 100 mls/hr IV . Q10H [facility] Rx#:[id number] Oral 300 Output: Urine 250 Urine/Stool Mix 1 Other: Voiding Method Bedside Commode Bedside Commode # Voids 0 # Bowel Movements 1 Weight 89.811 kg 92 kg General: ill appearing, mild distress, Obese Derm: no unusual rashes/lesions no unusual ecchymoses, warm, dry Head: atraumatic, normocephalic, symmetric Eyes: EOMI, no lid lag, anicteric sclera, pupils equal round reactive to light ENT: Nose and ears atraumatic, no thrush, no pharyngeal erythema Neck: No thyromegaly, no cervical lymphadenopathy, trachea midline, supple Mouth: no lip lesion, mucus membranes moist Cardiovascular: S1S2 reg, no murmur, positive posterior tibial pulse bilateral, no edema, capillary refill less than 2 seconds Lungs: decreased bs bilateral with ronchi , + accessory muscle use, 3 word conversational dyspnea developed during conversation Abdominal: soft, nontender to palpation, no guarding, no appreciable organomegaly, normal bowel sounds Ext: no gross muscle atrophy, muscle strength 4 out of 5 in all 4 extremities grossly, no contractures, Neuro: CN II-XI grossly intact, light touch intact all 4 extremities, finger to nose within normal limits, Psych: Alert, oriented, appropriate affect Results CBC & Chem 7: 01/23/19 00:50 01/23/19 10:42 Labs: Abnormal Lab Results - Last 24 Hours (Table) 01/23/19 01/23/19 Range/Units 00:50 00:50 WBC 12.0 H (3.8-10.6) k/uL Potassium 3.4 L (3.5-5.1) mmol/L BUN 21 H (7-17) mg/dL Glucose 132 H (74-99) mg/dL Calcium 10.3 H (8.4-10.2) mg/dL Total Protein 8.4 H (6.3-8.2) g/dL Albumin 5.3 H (3.5-5.0) g/dL Chest x-ray: report reviewed, image reviewed (right basilar atelectasis, u nchanged from 09/2018) Thrombosis Risk Factor Assmnt - DVT/VTE Prophylaxis DVT/VTE Prophylaxis: Pharmacologic Prophylaxis ordered - Choose All That Apply Each Factor Represents 1 point: Abnormal pulmonary function (COPD), Age 41-60 years, Obesity (BMI >25), Varicose veins Other Risk Factors: No Other congenital or acquired thrombophilia - If yes, enter type in comment: No Thrombosis Risk Factor Assessment Total Risk Factor Score: 4 Thrombosis Risk Factor Assessment Level: Moderate Risk Assessment and Plan Assessment: Acute exacerbation of his severe persistent bronchial asthma likely with acute bronchitis - Continue with IV steroids - antibiotics - bronchodilators with albuterol, budesonide, perforomist, mucomyst - pulmonary hygiene Severe tracheobronchial malacia with history of tracheal stent -Pulmonary recommendations -Patient asking for repeat bronchoscopy with therapeutic BAL -Continue CPAP therapy as needed ITZ -CPAP therapy Acute on Chronic hypoxic respiratory failure -On 3 L at home at all times, use CPAP intermittently as needed for SOB -Continue to use - treatment as above Morbid obesity with BMI 39.6 -Patient is currently attempting weight loss to undergo surgery -Old home contrave GERD -PPI therapy. Vitamin D deficiency -Continue vitamin D therapy History of iron deficiency -Continue with iron therapy The patient is admitted with an anticipated greater than 2 midnight stay for evaluation of Severe Persistent Asthma exacerbation complicated by Severe tracheobroncho Malacia. She currently requires hospitalized level care including around the clock breathing treatments, mucolytic, oxygen therapy, and IV antibiotics. Early discharge could result in worsening of her pulmonary status including development of respiratory failure resulting in if not corrected quickly as she already uses CPAP many times throughout the day. DVT prophylaxis: Heparin Discussed with: patient, nursing, spouse Anticipated discharge date: 2-[address]: home A total of 75 minutes was spent on the care of this complex patient more than 50% of the time was spent in counseling and care coordination.
[2019-01-23] MEDS: FORMOTEROL FUMARATE 20 MCG/2 ML NEBU INHALATION SCH (20:02)
[2019-01-23] MEDS: AZITHROMYCIN 500 MG TAB PO SCH (20:36)
[2019-01-23] MEDS: guaiFENesin 600 MG TABLET.ER PO SCH (20:36)
[2019-01-23] MEDS: INSULIN ASPART (NovoLOG) 100 UNIT/ML VIAL SQ SCH (21:00)
[2019-01-23] MEDS ORDERED: PROMETHAZINE HCL 6.25 MG/5 ML CUP PO PRN (21:00)
[2019-01-23 21:04] LABS: Glucose,Whole Blood 233 mg/dL (75-99)
[2019-01-23] MEDS: HEPARIN SODIUM,PORCINE 5,000 UNIT/ML 1 ML VIAL SQ SCH (22:41)
[2019-01-24] MEDS: PROMETHAZINE HCL 6.25 MG/5 ML CUP PO SCH ×4 (04:49→23:53)
[2019-01-24] MEDS: methylPREDNISolone SOD SUCCI 125 MG/2 ML VIAL IV SCH ×4 (04:49→23:55)
[2019-01-24 06:13] LABS: Glucose,Whole Blood 151 mg/dL (75-99)
[2019-01-24] MEDS: INSULIN ASPART (NovoLOG) 100 UNIT/ML VIAL SQ SCH ×4 (06:13→20:30)
[2019-01-24 06:58] LABS: HCT 39.8 % (34.0-46.0); HGB 13.1 gm/dL (11.4-16.0); MCH 29.1 pg (25.0-35.0); MCHC 32.9 g/dL (31.0-37.0); MCV 88.4 fL (80.0-100.0); Mean Platelet Volume 7.6; Platelet Count 209 k/uL (150-450); RBC 4.51 m/uL (3.80-5.40); WBC 10.5 k/uL (3.8-10.6)
--- NOTE | 2019-01-24 07:01 | XR ---
EXAMINATION TYPE: XR chest 2V DATE OF EXAM: 01/24/2019 COMPARISON: Chest x-ray from yesterday and older studies. HISTORY: Pneumonia. TECHNIQUE: Frontal and lateral views of the chest are obtained. FINDINGS: Overlying EKG leads are redemonstrated. Cardiac silhouette size remains within normal limi ts. Improved inspiration and basilar aeration current study. No new focal airspace opacity, pleural e ffusion, or pneumothorax. IMPRESSION: Improved inspiration and aeration right lung base. No new infiltrate.
[2019-01-24 07:25] LABS: African American GFR (CKD) >90 (>60 ml/min/1.73 sqM); Anion Gap 10 mmol/L; Blood Urea Nitrogen 14 mg/dL (7-17); Calcium 9.7 mg/dL (8.4-10.2); Carbon Dioxide 29 mmol/L (22-30); Chloride 103 mmol/L (98-107); Glucose 140 mg/dL (74-99); Magnesium 2.1 mg/dL (1.6-2.3); Non-African American GFR(CKD) >90 (>60 ml/min/1.73 sqM); Potassium 4.4 mmol/L (3.5-5.1); Sodium 142 mmol/L (137-145)
[2019-01-24] MEDS: IPRATROPIUM-ALBUTEROL 3 ML NEB INHALATION SCH ×2 (08:04→20:35)
[2019-01-24] MEDS: BUDESONIDE 0.5 MG/2 ML NEBU INHALATION SCH ×2 (08:04→20:33)
[2019-01-24] MEDS: FORMOTEROL FUMARATE 20 MCG/2 ML NEBU INHALATION SCH ×2 (08:04→20:33)
[2019-01-24] MEDS: ACETYLCYSTEINE 800 MG/4 ML VIAL INHALATION SCH (08:05)
[2019-01-24] MEDS: CHOLECALCIFEROL 1,000 UNIT TAB PO SCH (08:44)
[2019-01-24] MEDS: METOPROLOL SUCCINATE (ER) 25 MG TAB.ER.24H PO SCH (08:44)
[2019-01-24] MEDS: TRIAMTERENE-HCTZ 37.5-25MG 1 EACH CAP PO SCH (08:44)
[2019-01-24] MEDS: PANTOPRAZOLE 40 MG TABLET PO SCH ×2 (08:44→20:14)
[2019-01-24] MEDS: FERROUS SULFATE 325 MG TAB PO SCH (08:44)
[2019-01-24] MEDS: MONTELUKAST 10 MG TAB PO SCH (08:44)
[2019-01-24] MEDS: guaiFENesin 600 MG TABLET.ER PO SCH ×2 (08:44→20:15)
[2019-01-24] MEDS: ISOSORBIDE MONONITRATE ER 30 MG TAB.ER.24H PO SCH (08:44)
[2019-01-24] MEDS: LACTOBACILLUS ACIDOPH & BULGAR 1 EACH PACKET PO SCH (08:44)
[2019-01-24] MEDS: HEPARIN SODIUM,PORCINE 5,000 UNIT/ML 1 ML VIAL SQ SCH ×3 (08:44→23:54)
[2019-01-24] MEDS: VENLAFAXINE HCL ER 75 MG CAP PO SCH (08:44)
[2019-01-24] MEDS: SODIUM CHLORIDE 0.9% 1,000 ML IV SCH ×2 (08:45→20:24)
[2019-01-24 11:43] LABS: Glucose,Whole Blood 116 mg/dL (75-99)
[2019-01-24] MEDS: ALBUTEROL NEBULIZED 2.5 MG/3 ML INHALATION PRN (11:44)
--- NOTE | 2019-01-24 15:42 | P.PN ---
Subjective Progress Note Date: 01/24/19 This is a 53-year-old female patient is known to me. This patient is a very complicated case of severe asthma, severe tracheobronchomalacia and obstructive sleep apnea. The patient was taking care of with me here and through interventional pulmonary program at [facility]. As mentioned, she has severe cervical bronchomalacia and she had a Chary-en-Y stent inserted which stayed in for a total of 4-1/2 months and ultimately the stent was taken out as the patient was having significant infectious complications with various bacteria including staph aureus, not MRSA. The patient required several antibiotic treatments. During the course of her disease, the patient underwent several CAT scans of the chest I was able to obtain copies of all CAT scans that were done at [facility]. She was seen by Dr. Tijerina and Dr. Davidson. She was not a surgical candidate at this point in time. The stent was removed and her last bout of antibiotics was Bactrim that was given for a staphylococcal infection. As for the most recent CAT scan of the chest that was done on 08/23/2018, there was narrowing of the left mainstem bronchus secondary to encasement by a soft tissue density that was a new finding. There was also suggestion of paratracheal air consistent with a small area of no mediastinum and this could be probably rates to either distends or narrowing of the left mainstem bronchus and the branching bronchi. There was also interval enlargement of a right paratracheal lymph node measuring 1 x 1.4 cm. There was development of subcarinal and posterior mediastinal soft tissue density suspicious for confluent zenon mass and small bilateral perihilar lymph nodes were also identified. Based on this, the patient will need a follow-up CAT scan of the chest. She has obstructive sleep apnea which is mild in severity with an AHI of 14. I switched her to an automatic mode with a minimum pressure of 10 and a maximum pressure of 20. She feels that the pressure adjustments helped her breathe. In fact she uses her APAP on and off anytime when she gets short of breath. I performed a bronchoscopy on her after treating her with antibiotics. The bronchoscopy was completed in 10/2018 without any complication. There was a severe component of tracheal bronchomalacia and this was visualized live on the bronchoscope. Therapeutic airway suctioning was done. A BAL was done. The cultures were negative for any microbes other than Cladosporium . Note that there is no MRSA infection. She is using Pulmicort Respules twice a day and Xopenex around the clock as needed. She has a regular CPAP . She also has a portable CPAP unit and a portable nebulizer. The patient came yesterday to the emergency department because of worsening shortness of breath. In fact she had contacted my office for increased dyspnea and I gave her a prednisone burst taper which he took without any significant benefit. Antibiotics was given. In the emergency, the patient was having shortness of breath and cough and. She has a rattle unable to bring up any sputum. She has a harsh barky cough related to her severe tracheal bronchomalacia. She thought that the steroids did not help her with her breathi ng. She was using her CPAP. She was using a portable nebulizer. She will occasionally bring up some yellowish sputum. Her white cell count was at 12.0. Rest of the blood work and electrodes are all within normal limits. Troponins were negative. The chest x-ray showed mild infiltration/atelectasis of the right lung base that was essentially unchanged. The patient was admitted to the hospital. She was started on a combination of Ventolin/DuoNeb updrafts [id number], Pulmicort Respules twice a day, Zithromax 500 mg by mouth daily along with Rocephin and she was started on U commenced nebulized treatments once a day. She is hemodynamically stable. Currently she denied oxygen at 3 L and her pulse ox is around 92%. No nausea. No vomiting. No diarrhea. On today's evaluation of 01/24/2019 I'm seeing the patient for a follow-up. She is feeling better. She is less short of breath compared to yesterday. She has severe tracheobronchomalacia. She feels that there is a lot of mucus again within the patient's airway. He is unable to bring it up as she has extensive malacia and this has been witnessed and evaluated on previous bronchoscopies. For now she is and accommodation bronchodilators and steroids and the patient is going to have a bronchoscopy in a.m. to optimize her overall pulmonary status. Objective - Vital Signs Vital signs: Vital Signs Temp 97.7 F 01/24/19 07:47 Pulse 81 01/24/19 14:34 Resp 18 01/24/19 14:34 BP 126/77 01/24/19 14:34 Pulse Ox 95 01/24/19 14:34 Intake & Output 01/23/19 01/24/19 01/24/19 18:59 06:59 18:59 Intake Total 1000 1180 Output Total 251 Balance 749 1180 Weight 92 kg 91.6 kg Intake: IV 700 Sodium Chloride 0.9% 1, 700 000 ml @ 100 mls/hr IV . Q10H [facility] Rx#:[id number] Intake, IV Titration 700 Amount Sodium Chloride 0.9% 1, 700 000 ml @ 100 mls/hr IV . Q10H [facility] Rx#:[id number] Oral 300 480 Output: Urine 250 Urine/Stool Mix 1 Other: Voiding Method Bedside Commode # Voids 1 # Bowel Movements 1 - Exam General Appearance no diaphoresis, no respiratory distress, speech not interrupted by breaths, no dyspnea, no pallor, not cachectic, well nourished, appears well, obesity HEENT no pursed lip breathing, no jugular venous distention, no mucous membrane cyanosis, no perioral cyanosis, mallampati classification: class 1, Mallampati Classification: Class 4 Chest diminished breath sounds along with some expiratory wheezes heard throughout the lung luevano bilaterally. Scattered rhonchi. Active breath sounds are markedly diminished and the patient is unable to effectively bruits as her breathing is frequently interrupted by Heart no right ventricular heave, no distant heart sounds, no s3 gallop, (normal) jugular vein: jugular venous distention: by 0cm, (normal) jugular vein GI bowel sounds: hyperactive (borborygmi), bowel sounds: diminished or absent Extremities no cyanosis, no clubbing, no edema Neurologic no decreased mental status, no somnolence, no confusion Assisstive Devices: ambulates with no assitive devices Gait and Mobility: gait WNL, full weight bearing Examination of the skin revealed no evidence of significant rashes, suspicious appearing nevi or other concerning lesions. - Labs CBC & Chem 7: 01/24/19 06:39 01/24/19 06:39 Labs: Abnormal Lab Results - Last 24 Hours (Table) 01/23/19 01/24/19 01/24/19 Range/Units 20:51 06:11 06:39 Glucose 140 H (74-99) mg/dL POC Glucose (mg/dL) 233 H 151 H (75-99) mg/dL 01/24/19 Range/Units 11:41 Glucose (74-99) mg/dL POC Glucose (mg/dL) 116 H (75-99) mg/dL Assessment and Plan Plan: 1 acute exacerbation of severe persistent bronchial asthma. The patient is actively bronchospastic and wheezy. evidence of pneumonia. The exact trigger is not known and the patient has failed outpatient with a prednisone burst taper. Note that she has severe tracheobronchomalacia which is further complicating his exacerbation 2 severe check a bronchomalacia previous insertion and removal of a Chary-en-Y stents. She is post bronchoscopy. No active infection based on the most recent bronchoscopy that was done back in October 2018 3 obstructive sleep apnea maintained on APAP 4 Acid reflux 5 hypothyroidism 6 history of viral cardiomyopathy 7 vitamin D deficiency 8 iron deficiency 9 history of bariatric surgery him a post-gastric sleeve. 10 history of spinal stenosis Plan Continue same treatment. Feeling slightly better. Bronchoscopy in a.m. for therapeutic airway suctioning and bronchioloalveolar lavage.
[2019-01-24 16:38] LABS: Glucose,Whole Blood 134 mg/dL (75-99)
--- NOTE | 2019-01-24 16:47 | P.PN ---
Subjective Progress Note Date: 01/24/19 (delayed charting seen at 0945) Principal diagnosis: shortness of breath Patient is a 53-year-old female with a past medical history of severe bronchial asthma, severe tracheobronchomalacia status post insertion and removal of tracheal stent, obstructive sleep apnea, and osteoarthritis who presented to the emergency department with complaints of dyspnea. She had been suffering from a cough and shortness of breath for approximately 2 weeks. She contacted her banker mason Dr. Johnson who prescribed a Medrol Dosepak. She finished this 2 days prior to presentation but did not have any relief in her symptoms. In the ER she underwent an extensive evaluation. On arrival she was tachypnic with a respiratory rate of 28. Laboratory analysis showed a white blood cell count of 12, potassium 3.4, BUN 21, calcium 10.3, and albumin of 5.3. Chest x- ray was unchanged from prior demonstrated infiltrate at the right base. She was started on steroids for acute exacerbation of asthma on antibiotics for possible tracheobronchitis. She was initiated on CPAP therapy and admitted to the ICU. She was maintained on steroids and bronchodilators. Pulmonary had been consulted and added cough supressant. Patient seen and examined at bedside. Still with cough and feels like she needs to cough up phlegm. SOB is improving. Feels that she needs a bronch. No chest pain, no nausea, no diarrhea. Objective - Vital Signs Vital signs: Vital Signs Temp 97.7 F 01/24/19 07:47 Pulse 81 01/24/19 14:34 Resp 18 01/24/19 14:34 BP 126/77 01/24/19 14:34 Pulse Ox 95 01/24/19 14:34 Intake & Output 01/23/19 01/24/19 01/24/19 18:59 06:59 18:59 Intake Total 1000 1180 Output Total 251 Balance 749 1180 Weight 92 kg 91.6 kg Intake: IV 700 Sodium Chloride 0.9% 1, 700 000 ml @ 100 mls/hr IV . Q10H [facility] Rx#:[id number] Intake, IV Titration 700 Amount Sodium Chloride 0.9% 1, 700 000 ml @ 100 mls/hr IV . Q10H [facility] Rx#:[id number] Oral 300 480 Output: Urine 250 Urine/Stool Mix 1 Other: Voiding Method Bedside Commode # Voids 1 # Bowel Movements 1 - Exam General: non toxic, no distress, appears at stated age Derm: warm, dry Head: atraumatic, normocephalic, symmetric Eyes: EOMI, no lid lag, anicteric sclera Mouth: no lip lesion, mucus membranes moist Cardiovascular: S1S2 reg, no murmur, positive posterior tibial pulse bilateral, Lungs:: course bs bilateral with ronchi mid chest , no accessory muscle use Abdominal: soft, nontender to palpation, no guarding, no appreciable organomegaly Ext: no gross muscle atrophy, no edema, no contractures Neuro: CN II-XI grossly intact, no focal neuro deficits Psych: Alert, oriented, appropriate affect - Labs CBC & Chem 7: 01/24/19 06:39 01/24/19 06:39 Labs: Abnormal Lab Results - Last 24 Hours (Table) 01/23/19 01/24/19 01/24/19 Range/Units 20:51 06:11 06:39 Glucose 140 H (74-99) mg/dL POC Glucose (mg/dL) 233 H 151 H (75-99) mg/dL 01/24/19 Range/Units 11:41 Glucose (74-99) mg/dL POC Glucose (mg/dL) 116 H (75-99) mg/dL Assessment and Plan Assessment: Acute exacerbation of severe persistent bronchial asthma likely with acute bronchitis - Continue with IV steroids - antibiotics - bronchodilators with albuterol, budesonide, perforomist, mucomyst - pulmonary hygiene Severe tracheobronchial malacia with history of tracheal stent -Pulmonary recommendations -Bronchoscopy with therapeutic BAL in AM -Continue CPAP therapy as needed ITZ -CPAP therapy Acute on Chronic hypoxic respiratory failure -On 3 L at home at all times, use CPAP intermittently as needed for SOB -Continue to use - treatment as above Morbid obesity with BMI 39.6 -Patient is currently attempting weight loss to undergo surgery -Hold home contrave GERD -PPI therapy. Vitamin D deficiency -Continue vitamin D therapy History of iron deficiency -Continue with iron therapy DVT prophylaxis: Heparin Discussed with: patient, Dr. Johnson Anticipated discharge date: 2-[address]: home A total of 25 minutes was spent on the care of this complex patient more than 50% of the time was spent in counseling and care coordination.
[2019-01-24] MEDS: AZITHROMYCIN 500 MG TAB PO SCH (20:15)
[2019-01-24 20:29] LABS: Glucose,Whole Blood 158 mg/dL (75-99)
[2019-01-25] MEDS: ALBUTEROL NEBULIZED 2.5 MG/3 ML INHALATION PRN ×2 (00:07→16:19)
[2019-01-25] MEDS: PROMETHAZINE HCL 6.25 MG/5 ML CUP PO SCH ×4 (05:49→23:44)
[2019-01-25] MEDS: methylPREDNISolone SOD SUCCI 125 MG/2 ML VIAL IV SCH ×4 (05:49→23:43)
[2019-01-25] MEDS: SODIUM CHLORIDE 0.9% 1,000 ML IV SCH ×2 (05:59→16:26)
[2019-01-25 07:13] LABS: Glucose,Whole Blood 140 mg/dL (75-99)
[2019-01-25] MEDS: INSULIN ASPART (NovoLOG) 100 UNIT/ML VIAL SQ SCH ×4 (07:13→22:21)
[2019-01-25] MEDS: HEPARIN SODIUM,PORCINE 5,000 UNIT/ML 1 ML VIAL SQ SCH ×3 (07:34→23:44)
[2019-01-25] MEDS: FORMOTEROL FUMARATE 20 MCG/2 ML NEBU INHALATION SCH ×2 (08:55→20:42)
[2019-01-25] MEDS: BUDESONIDE 0.5 MG/2 ML NEBU INHALATION SCH ×2 (08:55→20:42)
[2019-01-25] MEDS ORDERED: IV FLUID CONTINUATION 1,000 ML IV ONE (08:58)
[2019-01-25] MEDS ORDERED: PROPOFOL 10 MG/ML 20 ML VIAL IV ONE (08:59)
[2019-01-25] MEDS ORDERED: LIDOCAINE 1% INJ 10MG/ML (20 ML MDV) ONE (08:59)
[2019-01-25] MEDS ORDERED: LIDOCAINE 2% INJ 20 MG/ML INTRATRACH ONE (09:16)
--- NOTE | 2019-01-25 09:21 | P.PN ---
Subjective Progress Note Date: 01/25/19 This is a 53-year-old female patient is known to me. This patient is a very complicated case of severe asthma, severe tracheobronchomalacia and obstructive sleep apnea. The patient was taking care of with me here and through interventional pulmonary program at [facility]. As mentioned, she has severe cervical bronchomalacia and she had a Chary-en-Y stent inserted which stayed in for a total of 4-1/2 months and ultimately the stent was taken out as the patient was having significant infectious complications with various bacteria including staph aureus, not MRSA. The patient required several antibiotic treatments. During the course of her disease, the patient underwent several CAT scans of the chest I was able to obtain copies of all CAT scans that were done at [facility]. She was seen by Dr. Tijerina and Dr. Davidson. She was not a surgical candidate at this point in time. The stent was removed and her last bout of antibiotics was Bactrim that was given for a staphylococcal infection. As for the most recent CAT scan of the chest that was done on 08/23/2018, there was narrowing of the left mainstem bronchus secondary to encasement by a soft tissue density that was a new finding. There was also suggestion of paratracheal air consistent with a small area of no mediastinum and this could be probably rates to either distends or narrowing of the left mainstem bronchus and the branching bronchi. There was also interval enlargement of a right paratracheal lymph node measuring 1 x 1.4 cm. There was development of subcarinal and posterior mediastinal soft tissue density suspicious for confluent zenon mass and small bilateral perihilar lymph nodes were also identified. Based on this, the patient will need a follow-up CAT scan of the chest. She has obstructive sleep apnea which is mild in severity with an AHI of 14. I switched her to an automatic mode with a minimum pressure of 10 and a maximum pressure of 20. She feels that the pressure adjustments helped her breathe. In fact she uses her APAP on and off anytime when she gets short of breath. I performed a bronchoscopy on her after treating her with antibiotics. The bronchoscopy was completed in 10/2018 without any complication. There was a severe component of tracheal bronchomalacia and this was visualized live on the bronchoscope. Therapeutic airway suctioning was done. A BAL was done. The cultures were negative for any microbes other than Cladosporium . Note that there is no MRSA infection. She is using Pulmicort Respules twice a day and Xopenex around the clock as needed. She has a regular CPAP . She also has a portable CPAP unit and a portable nebulizer. The patient came yesterday to the emergency department because of worsening shortness of breath. In fact she had contacted my office for increased dyspnea and I gave her a prednisone burst taper which he took without any significant benefit. Antibiotics was given. In the emergency, the patient was having shortness of breath and cough and. She has a rattle unable to bring up any sputum. She has a harsh barky cough related to her severe tracheal bronchomalacia. She thought that the steroids did not help her with her breathi ng. She was using her CPAP. She was using a portable nebulizer. She will occasionally bring up some yellowish sputum. Her white cell count was at 12.0. Rest of the blood work and electrodes are all within normal limits. Troponins were negative. The chest x-ray showed mild infiltration/atelectasis of the right lung base that was essentially unchanged. The patient was admitted to the hospital. She was started on a combination of Ventolin/DuoNeb updrafts [id number], Pulmicort Respules twice a day, Zithromax 500 mg by mouth daily along with Rocephin and she was started on U commenced nebulized treatments once a day. She is hemodynamically stable. Currently she denied oxygen at 3 L and her pulse ox is around 92%. No nausea. No vomiting. No diarrhea. On today's evaluation of 01/24/2019 I'm seeing the patient for a follow-up. She is feeling better. She is less short of breath compared to yesterday. She has severe tracheobronchomalacia. She feels that there is a lot of mucus again within the patient's airway. He is unable to bring it up as she has extensive malacia and this has been witnessed and evaluated on previous bronchoscopies. For now she is and accommodation bronchodilators and steroids and the patient is going to have a bronchoscopy in a.m. to optimize her overall pulmonary status. On 01/25/2019 I'm seeing the patient for a follow-up. The plan is to do a bronchoscopy today for therapeutic airway suctioning. The patient is still feeling quite plugged up. She also feels that her airway closes whenever she drinks cold liquids. Unable to bring up much sputum. No fever no chills. She remains on Zithromax and Rocephin. She remains on IV Solu-Medrol. She is on Mucinex. No nausea. No vomiting. No abdominal pain. No chest pain. No other significant events overnight. She is also taking Mucomyst for retained respiratory secretions. Objective - Vital Signs Vital signs: Vital Signs Temp 97.7 F 01/25/19 07:01 Pulse 80 01/25/19 07:01 Resp 20 01/25/19 07:01 BP 132/71 01/25/19 07:01 Pulse Ox 98 01/25/19 07:01 Intake & Output 01/24/19 01/25/19 01/25/19 18:59 06:59 18:59 Intake Total 1720 400 Balance 1720 400 Intake: Intake, IV Titration 700 Amount Sodium Chloride 0.9% 1, 700 000 ml @ 100 mls/hr IV . Q10H [facility] Rx#:[id number] Oral 1020 400 Other: Voiding Method Bedside Commode # Voids 2 1 # Bowel Movements 0 - Exam General Appearance no diaphoresis, no respiratory distress, speech not interrupted by breaths, no dyspnea, no pallor, not cachectic, well nourished, appears well, obesity HEENT no pursed lip breathing, no jugular venous distention, no mucous membrane cyanosis, no perioral cyanosis, mallampati classification: class 1, Mallampati Classification: Class 4 Chest diminished breath sounds along with some expiratory wheezes heard throughout the lung luevano bilaterally. Scattered rhonchi. Active breath sounds are markedly diminished and the patient is unable to effectively bruits as her breathing is frequently interrupted by Heart no right ventricular heave, no distant heart sounds, no s3 gallop, (normal) jugular vein: jugular venous distention: by 0cm, (normal) jugular vein GI bowel sounds: hyperactive (borborygmi), bowel sounds: diminished or absent Extremities no cyanosis, no clubbing, no edema Neurologic no decreased mental status, no somnolence, no confusion Assisstive Devices: ambulates with no assitive devices Gait and Mobility: gait WNL, full weight bearing Examination of the skin revealed no evidence of significant rashes, suspicious appearing nevi or other concerning lesions. - Labs CBC & Chem 7: 01/24/19 06:39 01/24/19 06:39 Labs: Abnormal Lab Results - Last 24 Hours (Table) 01/24/19 01/24/19 01/24/19 Range/Units 11:41 16:37 20:23 POC Glucose (mg/dL) 116 H 134 H 158 H (75-99) mg/dL 01/25/19 Range/Units 07:08 POC Glucose (mg/dL) 140 H (75-99) mg/dL Assessment and Plan Plan: 1 acute exacerbation of severe persistent bronchial asthma. The patient is actively bronchospastic and wheezy. evidence of pneumonia. The exact trigger is not known and the patient has failed outpatient with a prednisone burst taper. Note that she has severe tracheobronchomalacia which is further complicating his exacerbation 2 severe check a bronchomalacia previous insertion and removal of a Chary-en-Y stents. She is post bronchoscopy. No active infection based on the most recent bronchoscopy that was done back in October 2018 3 obstructive sleep apnea maintained on APAP 4 Acid reflux 5 hypothyroidism 6 history of viral cardiomyopathy 7 vitamin D deficiency 8 iron deficiency 9 history of bariatric surgery him a post-gastric sleeve. 10 history of spinal stenosis Plan Gradually improving. Continue same treatment. We'll proceed with a bronchoscopy and bronchial lavage for microbial cultures and further recommendations are to follow. We'll continue the high-dose Solu-Medrol. On today's evaluation the patient is felt to be less bronchospastic and wheezy compared to yesterday and she is gradually improving.
--- NOTE | 2019-01-25 09:28 | P.PCN ---
Date of Procedure: 01/25/19 Preoperative Diagnosis: Severe tracheobronchomalacia, bronchial asthma, shortness of breath Postoperative Diagnosis: Severe tracheobronchomalacia, granulation tissue in the mid trachea or radiating from the posterior wall (membranous trachea) Procedure(s) Performed: Flexible bronchoscopy, bronchioloalveolar lavage Anesthesia: MAC Surgeon: Parish Johnson Estimated Blood Loss (ml): 0 Pathology: other Condition: stable Disposition: floor Operative Findings: Sedation. The patient was given a total of 170 mg of propofol. After achieving adequate sedation the flexible bronchoscope was inserted through the left nostril and was advanced into the upper airway. Examination of the posterior oropharynx, larynx, epiglottis, arytenoids and the vocal cords was done. All of this upper airway structures were within normal limits. No abnormalities noted. Vocal cords were symmetric in the midline. 2 mL of 1% lidocaine was applied to the vocal cords and following that the bronchoscope was advanced into the upper trachea. Examination trachea was done. There was severe tracheomalacia. There was complete obstruction of the trachea due to dynamic obstruction and mobility of the membranous wall of the trachea. No major retained secretions. In the mid tracheal area, there was a polyp/granulation tissue, probably a result of the previous stent insertion, and this had a very smooth borders the overlying mucosa was very clean. This was noted on previous endoscopies and it remains unchanged. The patient had a full airway inspection and the airways visualized included trachea, bilateral mainstem bronchi, right upper lobe bronchus, right middle lobe bronchus, right lower lobe bronchus, left upper lobe bronchus and left lower lobe bronchus. All of the segments and subsegments were visualized. There was some minimal amount of retained secretions in the distal mainstem bronchus and management inflammatory changes in the lingular segment and the various segments of the left upper lobe. Rest the airways were all patent and there was minimal amount of retained respiratory secretions and this was contrary to our expectation.. I performed therapeutic it was suctioning. I subsequently did a bronchioloalveolar lavage of the lingula with a total of 40. Lungs diffuse and 25 mL was suctioned back. No complication. The bronchoscope was removed and the patient was transferred recovery in stable condition. Limited amount of coughing was encountered during the procedure.
[2019-01-25] MEDS: VENLAFAXINE HCL ER 75 MG CAP PO SCH (10:13)
[2019-01-25] MEDS: CHOLECALCIFEROL 1,000 UNIT TAB PO SCH (10:13)
[2019-01-25] MEDS: MONTELUKAST 10 MG TAB PO SCH (10:13)
[2019-01-25] MEDS: ISOSORBIDE MONONITRATE ER 30 MG TAB.ER.24H PO SCH (10:14)
[2019-01-25] MEDS: PANTOPRAZOLE 40 MG TABLET PO SCH ×2 (10:14→20:00)
[2019-01-25] MEDS: FERROUS SULFATE 325 MG TAB PO SCH (10:14)
[2019-01-25] MEDS: LACTOBACILLUS ACIDOPH & BULGAR 1 EACH PACKET PO SCH (10:14)
[2019-01-25] MEDS: METOPROLOL SUCCINATE (ER) 25 MG TAB.ER.24H PO SCH (10:14)
[2019-01-25] MEDS: guaiFENesin 600 MG TABLET.ER PO SCH ×2 (10:14→20:00)
[2019-01-25] MEDS: TRIAMTERENE-HCTZ 37.5-25MG 1 EACH CAP PO SCH (10:14)
[2019-01-25] MEDS ORDERED: BENZOCAINE/MENTHOL LOZENG 1 EACH LOZENGE MUCOUS MEM PRN (10:21)
--- NOTE | 2019-01-25 11:21 | P.PN ---
Subjective Progress Note Date: 01/25/19 Principal diagnosis: Patient is a 53-year-old female with a past medical history of severe bronchial asthma, severe tracheobronchomalacia status post insertion and removal of tracheal stent, obstructive sleep apnea, and osteoarthritis who presented to the emergency department with complaints of dyspnea. She had been suffering from a cough and shortness of breath for approximately 2 weeks. She contacted her code clerk Dr. Johnson who prescribed a Medrol Dosepak. She finished this 2 days prior to presentation but did not have any relief in her symptoms. In the ER she underwent an extensive evaluation. On arrival she was tachypnic with a respiratory rate of 28. Laboratory analysis showed a white blood cell count of 12, potassium 3.4, BUN 21, calcium 10.3, and albumin of 5.3. Chest x- ray was unchanged from prior demonstrated infiltrate at the right base. She was started on steroids for acute exacerbation of asthma on antibiotics for possible tracheobronchitis. She was initiated on CPAP therapy and admitted to the ICU. She was maintained on steroids and bronchodilators. Pulmonary had been consulted and added cough supressant. Bronchoscopy performed 01/25 which showed severe tracheomalacia and granulation tissue in the mid trachea Patient continues to be wheezing continues to be pretty severely bronchospastic, bronchoscopy completed earlier today Objective - Vital Signs Vital signs: Vital Signs Temp 97.8 F 01/25/19 10:13 Pulse 79 01/25/19 10:13 Resp 18 01/25/19 10:13 BP 111/59 01/25/19 10:13 Pulse Ox 93 L 01/25/19 10:13 Intake & Output 01/24/19 01/25/19 01/25/19 18:59 06:59 18:59 Intake Total 1720 400 100 Balance 1720 400 100 Intake: IV 100 Intake, IV Titration 700 Amount Sodium Chloride 0.9% 1, 700 000 ml @ 100 mls/hr IV . Q10H [facility] Rx#:[id number] Oral 1020 400 Other: Voiding Method Bedside Commode # Voids 2 1 # Bowel Movements 0 - Exam Constitutional: No acute distress, conversant, pleasant Eyes: Anicteric sclerae, moist conjunctiva, no lid-lag, PERRLA ENMT: NC/AT,Oropharynx clear, no erythema, exudates Neck:Supple, FROM, no masses, or JVD, No carotid bruits; No thyromegaly Lungs: Diminished in the bases with expiratory wheezes noted with a bronchospastic throughout all lung luevano, currently on 2 L via nasal cannula appears unlabored Cardiovascular: Heart regular in rate and rhythm, No murmurs, gallops, or rubs no peripheral edema Abdominal: Soft Nontender, nom distended, no guarding, no rebound or rigidity, Normoactive bowel sounds No hepatomegaly, No splenomegaly, No palpable mass No abdominal wall hernia noted Skin: Normal temperature, tone, texture, turgor, No induration No subcutaneous nodules, No rash, lesions, No ulcers Extremities:No digital cyanosis No clubbing, Pedal pulses intact and symmetrical Radial pulses intact and symmetrical Normal gait and station, No calf tenderness Psychiatric: Alert and oriented to person, place and time, Appropriate affect Intact judgement Neuro: Muscles Strength 5/5 in all 4 extremities, Sensation to light touch grossly present throughout, Cranial nerves II-XII grossly intact. No focal sensory deficits - Labs CBC & Chem 7: 01/24/19 06:39 01/24/19 06:39 Labs: Abnormal Lab Results - Last 24 Hours (Table) 01/24/19 01/24/19 01/24/19 Range/Units 11:41 16:37 20:23 POC Glucose (mg/dL) 116 H 134 H 158 H (75-99) mg/dL 01/25/19 Range/Units 07:08 POC Glucose (mg/dL) 140 H (75-99) mg/dL Assessment and Plan Assessment: Acute exacerbation of severe persistent bronchial asthma likely with acute b ronchitis - Continue with IV steroids - antibiotics - bronchodilators with albuterol, budesonide, perforomist, mucomyst - pulmonary hygiene Severe tracheobronchial malacia with history of tracheal stent -Pulmonary recommendations -Bronchoscopy with therapeutic BAL 01/25 results pending -Continue CPAP therapy as needed ITZ -CPAP therapy Acute on Chronic hypoxic respiratory failure -On 3 L at home at all times, use CPAP intermittently as needed for SOB -Continue to use - treatment as above Morbid obesity with BMI 39.6 -Patient is currently attempting weight loss to undergo surgery -Hold home contrave GERD -PPI therapy. Vitamin D deficiency -Continue vitamin D therapy History of iron deficiency -Continue with iron therapy DVT prophylaxis: Heparin Discussed with: patient, Dr. Artinian Anticipated discharge date: 2-[address]: home A total of 25 minutes was spent on the care of this complex patient more than 50% of the time was spent in counseling and care coordination.
[2019-01-25 11:33] LABS: Glucose,Whole Blood 128 mg/dL (75-99)
[2019-01-25] MEDS: IPRATROPIUM-ALBUTEROL 3 ML NEB INHALATION SCH ×2 (12:04→20:42)
[2019-01-25] MEDS: ACETYLCYSTEINE 800 MG/4 ML VIAL INHALATION SCH (12:04)
[2019-01-25 17:02] LABS: Glucose,Whole Blood 148 mg/dL (75-99)
[2019-01-25] MEDS: AZITHROMYCIN 500 MG TAB PO SCH (20:00)
[2019-01-25 21:00] LABS: Glucose,Whole Blood 100 mg/dL (75-99)
[2019-01-26] MEDS: ALBUTEROL NEBULIZED 2.5 MG/3 ML INHALATION PRN ×4 (00:14→23:43)
[2019-01-26] MEDS: SODIUM CHLORIDE 0.9% 1,000 ML IV SCH ×2 (02:05→11:28)
[2019-01-26] MEDS: methylPREDNISolone SOD SUCCI 125 MG/2 ML VIAL IV SCH ×4 (04:53→23:25)
[2019-01-26] MEDS: PROMETHAZINE HCL 6.25 MG/5 ML CUP PO SCH ×4 (04:53→23:25)
[2019-01-26 07:12] LABS: Glucose,Whole Blood 121 mg/dL (75-99)
[2019-01-26] MEDS: INSULIN ASPART (NovoLOG) 100 UNIT/ML VIAL SQ SCH ×4 (08:14→20:43)
[2019-01-26] MEDS: CHOLECALCIFEROL 1,000 UNIT TAB PO SCH (08:23)
[2019-01-26] MEDS: ISOSORBIDE MONONITRATE ER 30 MG TAB.ER.24H PO SCH (08:23)
[2019-01-26] MEDS: HEPARIN SODIUM,PORCINE 5,000 UNIT/ML 1 ML VIAL SQ SCH ×3 (08:23→23:26)
[2019-01-26] MEDS: TRIAMTERENE-HCTZ 37.5-25MG 1 EACH CAP PO SCH (08:23)
[2019-01-26] MEDS: FERROUS SULFATE 325 MG TAB PO SCH (08:23)
[2019-01-26] MEDS: LACTOBACILLUS ACIDOPH & BULGAR 1 EACH PACKET PO SCH (08:23)
[2019-01-26] MEDS: METOPROLOL SUCCINATE (ER) 25 MG TAB.ER.24H PO SCH (08:23)
[2019-01-26] MEDS: MONTELUKAST 10 MG TAB PO SCH (08:23)
[2019-01-26] MEDS: VENLAFAXINE HCL ER 75 MG CAP PO SCH (08:23)
[2019-01-26] MEDS: guaiFENesin 600 MG TABLET.ER PO SCH ×2 (08:23→20:44)
[2019-01-26] MEDS: PANTOPRAZOLE 40 MG TABLET PO SCH ×2 (08:23→20:44)
[2019-01-26] MEDS: ACETYLCYSTEINE 800 MG/4 ML VIAL INHALATION SCH (08:30)
[2019-01-26] MEDS: BUDESONIDE 0.5 MG/2 ML NEBU INHALATION SCH ×2 (08:30→19:25)
[2019-01-26] MEDS: FORMOTEROL FUMARATE 20 MCG/2 ML NEBU INHALATION SCH ×2 (08:30→19:25)
[2019-01-26] MEDS: IPRATROPIUM-ALBUTEROL 3 ML NEB INHALATION SCH ×2 (08:30→19:25)
[2019-01-26] MEDS: SENNOSIDES 8.6 MG TAB PO PRN (08:35)
--- NOTE | 2019-01-26 10:37 | P.PN ---
Subjective Progress Note Date: 01/26/19 Principal diagnosis: Patient is a 53-year-old female with a past medical history of severe bronchial asthma, severe tracheobronchomalacia status post insertion and removal of tracheal stent, obstructive sleep apnea, and osteoarthritis who presented to the emergency department with complaints of dyspnea. She had been suffering from a cough and shortness of breath for approximately 2 weeks. She contacted her casino host Dr. Johnson who prescribed a Medrol Dosepak. She finished this 2 days prior to presentation but did not have any relief in her symptoms. In the ER she underwent an extensive evaluation. On arrival she was tachypnic with a respiratory rate of 28. Laboratory analysis showed a white blood cell count of 12, potassium 3.4, BUN 21, calcium 10.3, and albumin of 5.3. Chest x- ray was unchanged from prior demonstrated infiltrate at the right base. She was started on steroids for acute exacerbation of asthma on antibiotics for possible tracheobronchitis. She was initiated on CPAP therapy and admitted to the ICU. She was maintained on steroids and bronchodilators. Pulmonary had been consulted and added cough supressant. Bronchoscopy performed 01/25 which showed severe tracheomalacia and granulation tissue in the mid trachea Patient continues to be wheezing continues to be pretty bronchospastic, has non productive seal bark cough, bronchoscopy with BAL done yesterday cultures are pending. No acute events overnight Objective - Vital Signs Vital signs: Vital Signs Temp 97.2 F L 01/26/19 05:00 Pulse 86 01/26/19 08:30 Resp 20 01/26/19 05:00 BP 117/71 01/26/19 05:00 Pulse Ox 96 01/26/19 05:00 Intake & Output 01/25/19 01/26/19 01/26/19 18:59 06:59 18:59 Intake Total 400 500 300 Balance 400 500 300 Intake: IV 100 Oral 300 500 300 Other: # Voids 2 2 - Exam Constitutional: No acute distress, conversant, pleasant Eyes: Anicteric sclerae, moist conjunctiva, no lid-lag, PERRLA ENMT: NC/AT,Oropharynx clear, no erythema, exudates Neck:Supple, FROM, no masses, or JVD, No carotid bruits; No thyromegaly Lungs: Diminished in the bases with expiratory wheezes noted with a bronchospastic throughout all lung luevano, currently on 2 L via nasal cannula appears unlabored Cardiovascular: Heart regular in rate and rhythm, No murmurs, gallops, or rubs no peripheral edema Abdominal: Soft Nontender, nom distended, no guarding, no rebound or rigidity, Normoactive bowel sounds No hepatomegaly, No splenomegaly, No palpable mass No abdominal wall hernia noted Skin: Normal temperature, tone, texture, turgor, No induration No subcutaneous nodules, No rash, lesions, No ulcers Extremities:No digital cyanosis No clubbing, Pedal pulses intact and symmetrical Radial pulses intact and symmetrical Normal gait and station, No calf tenderness Psychiatric: Alert and oriented to person, place and time, Appropriate affect Intact judgement Neuro: Muscles Strength 5/5 in all 4 extremities, Sensation to light touch grossly present throughout, Cranial nerves II-XII grossly intact. No focal sensory deficits - Labs CBC & Chem 7: 01/24/19 06:39 01/24/19 06:39 Labs: Abnormal Lab Results - Last 24 Hours (Table) 01/25/19 01/25/19 01/25/19 Range/Units 11:28 17:00 20:58 POC Glucose (mg/dL) 128 H 148 H 100 H (75-99) mg/dL 01/26/19 Range/Units 07:06 POC Glucose (mg/dL) 121 H (75-99) mg/dL Microbiology - Last 24 Hours (Table) 01/25/19 09:16 Gram Stain - Preliminary Bronchial Washings - Random Bronchial Washings Culture - Preliminary 01/25/19 09:16 Fungal Culture - Preliminary Bronchial Washings - Random Assessment and Plan Assessment: Acute exacerbation of severe persistent bronchial asthma likely with acute bronchitis - Continue with IV steroids - antibiotics - bronchodilators with albuterol, budesonide, perforomist, mucomyst - pulmonary hygiene Severe tracheobronchial malacia with history of tracheal stent -Pulmonary recommendations -Bronchoscopy with therapeutic BAL 01/25 results pending -Continue CPAP therapy as needed ITZ -CPAP therapy Acute on Chronic hypoxic respiratory failure -On 3 L at home at all times, use CPAP intermittently as needed for SOB -Continue to use - treatment as above Morbid obesity with BMI 39.6 -Patient is currently attempting weight loss to undergo surgery -Hold home contrave GERD -PPI therapy. Vitamin D deficiency -Continue vitamin D therapy History of iron deficiency -Continue with iron therapy DVT prophylaxis: Heparin Discussed with: patient, Dr. Johnson Anticipated discharge date: 2-[address]: home A total of 25 minutes was spent on the care of this complex patient more than 50% of the time was spent in counseling and care coordination.
--- NOTE | 2019-01-26 11:31 | P.PN ---
Subjective Progress Note Date: 01/26/19 This is a 53-year-old female patient is known to me. This patient is a very complicated case of severe asthma, severe tracheobronchomalacia and obstructive sleep apnea. The patient was taking care of with me here and through interventional pulmonary program at [facility]. As mentioned, she has severe cervical bronchomalacia and she had a Chary-en-Y stent inserted which stayed in for a total of 4-1/2 months and ultimately the stent was taken out as the patient was having significant infectious complications with various bacteria including staph aureus, not MRSA. The patient required several antibiotic treatments. During the course of her disease, the patient underwent several CAT scans of the chest I was able to obtain copies of all CAT scans that were done at [facility]. She was seen by Dr. Tijerina and Dr. Davidson. She was not a surgical candidate at this point in time. The stent was removed and her last bout of antibiotics was Bactrim that was given for a staphylococcal infection. As for the most recent CAT scan of the chest that was done on 08/23/2018, there was narrowing of the left mainstem bronchus secondary to encasement by a soft tissue density that was a new finding. There was also suggestion of paratracheal air consistent with a small area of no mediastinum and this could be probably rates to either distends or narrowing of the left mainstem bronchus and the branching bronchi. There was also interval enlargement of a right paratracheal lymph node measuring 1 x 1.4 cm. There was development of subcarinal and posterior mediastinal soft tissue density suspicious for confluent zenon mass and small bilateral perihilar lymph nodes were also identified. Based on this, the patient will need a follow-up CAT scan of the chest. She has obstructive sleep apnea which is mild in severity with an AHI of 14. I switched her to an automatic mode with a minimum pressure of 10 and a maximum pressure of 20. She feels that the pressure adjustments helped her breathe. In fact she uses her APAP on and off anytime when she gets short of breath. I performed a bronchoscopy on her after treating her with antibiotics. The bronchoscopy was completed in 10/2018 without any complication. There was a severe component of tracheal bronchomalacia and this was visualized live on the bronchoscope. Therapeutic airway suctioning was done. A BAL was done. The cultures were negative for any microbes other than Cladosporium . Note that there is no MRSA infection. She is using Pulmicort Respules twice a day and Xopenex around the clock as needed. She has a regular CPAP . She also has a portable CPAP unit and a portable nebulizer. The patient came yesterday to the emergency department because of worsening shortness of breath. In fact she had contacted my office for increased dyspnea and I gave her a prednisone burst taper which he took without any significant benefit. Antibiotics was given. In the emergency, the patient was having shortness of breath and cough and. She has a rattle unable to bring up any sputum. She has a harsh barky cough related to her severe tracheal bronchomalacia. She thought that the steroids did not help her with her breathi ng. She was using her CPAP. She was using a portable nebulizer. She will occasionally bring up some yellowish sputum. Her white cell count was at 12.0. Rest of the blood work and electrodes are all within normal limits. Troponins were negative. The chest x-ray showed mild infiltration/atelectasis of the right lung base that was essentially unchanged. The patient was admitted to the hospital. She was started on a combination of Ventolin/DuoNeb updrafts [id number], Pulmicort Respules twice a day, Zithromax 500 mg by mouth daily along with Rocephin and she was started on U commenced nebulized treatments once a day. She is hemodynamically stable. Currently she denied oxygen at 3 L and her pulse ox is around 92%. No nausea. No vomiting. No diarrhea. On today's evaluation of 01/24/2019 I'm seeing the patient for a follow-up. She is feeling better. She is less short of breath compared to yesterday. She has severe tracheobronchomalacia. She feels that there is a lot of mucus again within the patient's airway. He is unable to bring it up as she has extensive malacia and this has been witnessed and evaluated on previous bronchoscopies. For now she is and accommodation bronchodilators and steroids and the patient is going to have a bronchoscopy in a.m. to optimize her overall pulmonary status. On 01/25/2019 I'm seeing the patient for a follow-up. The plan is to do a bronchoscopy today for therapeutic airway suctioning. The patient is still feeling quite plugged up. She also feels that her airway closes whenever she drinks cold liquids. Unable to bring up much sputum. No fever no chills. She remains on Zithromax and Rocephin. She remains on IV Solu-Medrol. She is on Mucinex. No nausea. No vomiting. No abdominal pain. No chest pain. No other significant events overnight. She is also taking Mucomyst for retained respiratory secretions. On 01/26/2019 the patient is post bronchoscopy. She is gradually improving. On and off she is having some coughing spells yet overall she is doing baby steps and she is in the process of having gradual recovery. I obtained a lavage of the lingular segment of the left upper lobe and the results are still pending for now. Objective - Vital Signs Vital signs: Vital Signs Temp 97.2 F L 01/26/19 05:00 Pulse 86 01/26/19 08:30 Resp 20 01/26/19 05:00 BP 117/71 01/26/19 05:00 Pulse Ox 96 01/26/19 05:00 Intake & Output 01/25/19 01/26/19 01/26/19 18:59 06:59 18:59 Intake Total 400 500 300 Balance 400 500 300 Intake: IV 100 Oral 300 500 300 Other: # Voids 2 2 - Exam General Appearance no diaphoresis, no respiratory distress, speech not in terrupted by breaths, no dyspnea, no pallor, not cachectic, well nourished, appears well, obesity HEENT no pursed lip breathing, no jugular venous distention, no mucous membrane cyanosis, no perioral cyanosis, mallampati classification: class 1, Mallampati Classification: Class 4 Chest diminished breath sounds along with some expiratory wheezes heard throughout the lung luevano bilaterally. Scattered rhonchi. Active breath sounds are markedly diminished and the patient is unable to effectively bruits as her breathing is frequently interrupted by Heart no right ventricular heave, no distant heart sounds, no s3 gallop, (normal) jugular vein: jugular venous distention: by 0cm, (normal) jugular vein GI bowel sounds: hyperactive (borborygmi), bowel sounds: diminished or absent Extremities no cyanosis, no clubbing, no edema Neurologic no decreased mental status, no somnolence, no confusion Assisstive Devices: ambulates with no assitive devices Gait and Mobility: gait WNL, full weight bearing Examination of the skin revealed no evidence of significant rashes, suspicious appearing nevi or other concerning lesions. - Labs CBC & Chem 7: 01/24/19 06:39 01/24/19 06:39 Labs: Abnormal Lab Results - Last 24 Hours (Table) 01/25/19 01/25/19 01/25/19 Range/Units 11:28 17:00 20:58 POC Glucose (mg/dL) 128 H 148 H 100 H (75-99) mg/dL 01/26/19 Range/Units 07:06 POC Glucose (mg/dL) 121 H (75-99) mg/dL Microbiology - Last 24 Hours (Table) 01/25/19 09:16 Gram Stain - Preliminary Bronchial Washings - Random Bronchial Washings Culture - Preliminary 01/25/19 09:16 Fungal Culture - Preliminary Bronchial Washings - Random Assessment and Plan Plan: 1 acute exacerbation of severe persistent bronchial asthma. The patient is actively bronchospastic and wheezy. evidence of pneumonia. The exact trigger is not known and the patient has failed outpatient with a prednisone burst taper. Note that she has severe tracheobronchomalacia which is further complicating his exacerbation 2 severe check a bronchomalacia previous insertion and removal of a Chary-en-Y stents. She is post bronchoscopy. No active infection based on the most recent bronchoscopy that was done back in October 2018 3 obstructive sleep apnea maintained on APAP 4 Acid reflux 5 hypothyroidism 6 history of viral cardiomyopathy 7 vitamin D deficiency 8 iron deficiency 9 history of bariatric surgery him a post-gastric sleeve. 10 history of spinal stenosis Plan Awaiting the results of the bronchioloalveolar lavage from the left upper lobe. If negative, we'll start tapering steroids as of tomorrow. Cut down the IV fluids to KVO. Ambulate in the hallway. Sit up on a chair. We'll continue to follow.
[2019-01-26 11:32] LABS: Glucose,Whole Blood 134 mg/dL (75-99)
[2019-01-26 16:50] LABS: Glucose,Whole Blood 166 mg/dL (75-99)
[2019-01-26 20:24] LABS: Glucose,Whole Blood 132 mg/dL (75-99)
[2019-01-26] MEDS: AZITHROMYCIN 500 MG TAB PO SCH (20:44)
[2019-01-26] MEDS: CEFDINIR 300 MG CAP PO SCH (20:44)
[2019-01-27] MEDS: methylPREDNISolone SOD SUCCI 125 MG/2 ML VIAL IV SCH ×3 (05:53→16:28)
[2019-01-27] MEDS: PROMETHAZINE HCL 6.25 MG/5 ML CUP PO SCH ×3 (05:53→16:36)
[2019-01-27 06:59] LABS: Glucose,Whole Blood 117 mg/dL (75-99)
[2019-01-27] MEDS: INSULIN ASPART (NovoLOG) 100 UNIT/ML VIAL SQ SCH ×3 (07:11→16:29)
[2019-01-27] MEDS: PANTOPRAZOLE 40 MG TABLET PO SCH (07:25)
[2019-01-27] MEDS: VENLAFAXINE HCL ER 75 MG CAP PO SCH (07:25)
[2019-01-27] MEDS: CHOLECALCIFEROL 1,000 UNIT TAB PO SCH (07:25)
[2019-01-27] MEDS: METOPROLOL SUCCINATE (ER) 25 MG TAB.ER.24H PO SCH (07:25)
[2019-01-27] MEDS: TRIAMTERENE-HCTZ 37.5-25MG 1 EACH CAP PO SCH (07:26)
[2019-01-27] MEDS: FERROUS SULFATE 325 MG TAB PO SCH (07:26)
[2019-01-27] MEDS: guaiFENesin 600 MG TABLET.ER PO SCH (07:26)
[2019-01-27] MEDS: HEPARIN SODIUM,PORCINE 5,000 UNIT/ML 1 ML VIAL SQ SCH ×2 (07:26→16:28)
[2019-01-27] MEDS: MONTELUKAST 10 MG TAB PO SCH (07:26)
[2019-01-27] MEDS: ISOSORBIDE MONONITRATE ER 30 MG TAB.ER.24H PO SCH (07:26)
[2019-01-27] MEDS: LACTOBACILLUS ACIDOPH & BULGAR 1 EACH PACKET PO SCH (07:26)
[2019-01-27] MEDS: CEFDINIR 300 MG CAP PO SCH (07:26)
[2019-01-27] MEDS: SENNOSIDES 8.6 MG TAB PO PRN (07:39)
[2019-01-27] MEDS: IPRATROPIUM-ALBUTEROL 3 ML NEB INHALATION SCH (08:46)
[2019-01-27] MEDS: BUDESONIDE 0.5 MG/2 ML NEBU INHALATION SCH (08:46)
[2019-01-27] MEDS: ACETYLCYSTEINE 800 MG/4 ML VIAL INHALATION SCH (08:46)
[2019-01-27] MEDS: FORMOTEROL FUMARATE 20 MCG/2 ML NEBU INHALATION SCH (08:46)
[2019-01-27 12:13] LABS: Glucose,Whole Blood 112 mg/dL (75-99)
--- NOTE | 2019-01-27 12:54 | P.PN ---
Subjective Progress Note Date: 01/27/19 Principal diagnosis: Patient is a 53-year-old female with a past medical history of severe bronchial asthma, severe tracheobronchomalacia status post insertion and removal of tracheal stent, obstructive sleep apnea, and osteoarthritis who presented to the emergency department with complaints of dyspnea. She had been suffering from a cough and shortness of breath for approximately 2 weeks. She contacted her trashman Dr. Johnson who prescribed a Medrol Dosepak. She finished this 2 days prior to presentation but did not have any relief in her symptoms. In the ER she underwent an extensive evaluation. On arrival she was tachypnic with a respiratory rate of 28. Laboratory analysis showed a white blood cell count of 12, potassium 3.4, BUN 21, calcium 10.3, and albumin of 5.3. Chest x- ray was unchanged from prior demonstrated infiltrate at the right base. She was started on steroids for acute exacerbation of asthma on antibiotics for possible tracheobronchitis. She was initiated on CPAP therapy and admitted to the ICU. She was maintained on steroids and bronchodilators. Pulmonary had been consulted and added cough supressant. Bronchoscopy performed 01/25 which showed severe tracheomalacia and granulation tissue in the mid trachea Patient continues to be wheezing continues to be pretty bronchospastic, has non productive seal bark cough, bronchoscopy with BAL done yesterday cultures are pending. No acute events overnight Objective - Vital Signs Vital signs: Vital Signs Temp 97.7 F 01/27/19 05:20 Pulse 80 01/27/19 09:08 Resp 18 01/27/19 05:20 BP 142/84 01/27/19 05:20 Pulse Ox 98 01/27/19 05:20 Intake & Output 01/26/19 01/27/19 01/27/19 18:59 06:59 18:59 Intake Total 1100 800 Balance 1100 800 Intake: Oral 1100 800 Other: Voiding Method Toilet # Voids 1 1 2 - Exam Constitutional: No acute distress, conversant, pleasant Eyes: Anicteric sclerae, moist conjunctiva, no lid-lag, PERRLA ENMT: NC/AT,Oropharynx clear, no erythema, exudates Neck:Supple, FROM, no masses, or JVD, No carotid bruits; No thyromegaly Lungs: Diminished in the bases with expiratory wheezes noted with a bronchospastic throughout all lung luevano, currently on 2 L via nasal cannula appears unlabored Cardiovascular: Heart regular in rate and rhythm, No murmurs, gallops, or rubs no peripheral edema Abdominal: Soft Nontender, nom distended, no guarding, no rebound or rigidity, Normoactive bowel sounds No hepatomegaly, No splenomegaly, No palpable mass No abdominal wall hernia noted Skin: Normal temperature, tone, texture, turgor, No induration No subcutaneous nodules, No rash, lesions, No ulcers Extremities:No digital cyanosis No clubbing, Pedal pulses intact and symmetrical Radial pulses intact and symmetrical Normal gait and station, No calf tenderness Psychiatric: Alert and oriented to person, place and time, Appropriate affect Intact judgement Neuro: Muscles Strength 5/5 in all 4 extremities, Sensation to light touch grossly present throughout, Cranial nerves II-XII grossly intact. No focal sensory deficits - Labs CBC & Chem 7: 01/24/19 06:39 01/24/19 06:39 Labs: Abnormal Lab Results - Last 24 Hours (Table) 01/26/19 01/26/19 01/27/19 Range/Units 16:40 20:21 06:56 POC Glucose (mg/dL) 166 H 132 H 117 H (75-99) mg/dL 01/27/19 Range/Units 12:12 POC Glucose (mg/dL) 112 H (75-99) mg/dL Microbiology - Last 24 Hours (Table) 01/25/19 09:16 Gram Stain - Final Bronchial Washings - Random Bronchial Washings Culture - Final Assessment and Plan Assessment: Acute exacerbation of severe persistent bronchial asthma likely with acute bronchitis - Continue with IV steroids - antibiotics - bronchodilators with albuterol, budesonide, perforomist, mucomyst - pulmonary hygiene Severe tracheobronchial malacia with history of tracheal stent -Pulmonary recommendations -Bronchoscopy with therapeutic BAL 01/25 results pending -Continue CPAP therapy as needed ITZ -CPAP therapy Acute on Chronic hypoxic respiratory failure -On 3 L at home at all times, use CPAP intermittently as needed for SOB -Continue to use - treatment as above Morbid obesity with BMI 39.6 -Patient is currently attempting weight loss to undergo surgery -Hold home contrave GERD -PPI therapy. Vitamin D deficiency -Continue vitamin D therapy History of iron deficiency -Continue with iron therapy DVT prophylaxis: Heparin Discussed with: patient, Dr. Johnson Anticipated discharge date: 2-[address]: home A total of 25 minutes was spent on the care of this complex patient more than 50 % of the time was spent in counseling and care coordination.
[2019-01-27] MEDS: ALBUTEROL NEBULIZED 2.5 MG/3 ML INHALATION PRN ×2 (13:16→16:01)
--- NOTE | 2019-01-27 13:29 | P.PN ---
Subjective Progress Note Date: 01/27/19 Principal diagnosis: Acute exacerbation of severe persistent asthma This is a 53-year-old female patient is known to me. This patient is a very complicated case of severe asthma, severe tracheobronchomalacia and obstructive sleep apnea. The patient was taking care of with me here and through interventional pulmonary program at [facility]. As mentioned, she has severe cervical bronchomalacia and she had a Chary-en-Y stent inserted which stayed in for a total of 4-1/2 months and ultimately the stent was taken out as the patient was having significant infectious complications with various bacteria including staph aureus, not MRSA. The patient required several antibi otic treatments. During the course of her disease, the patient underwent several CAT scans of the chest I was able to obtain copies of all CAT scans that were done at [facility]. She was seen by Dr. Tijerina and Dr. Davidson. She was not a surgical candidate at this point in time. The stent was removed and her last bout of antibiotics was Bactrim that was given for a staphylococcal infection. As for the most recent CAT scan of the chest that was done on 08/23/2018, there was narrowing of the left mainstem bronchus secondary to encasement by a soft tissue density that was a new finding. There was also suggestion of paratracheal air consistent with a small area of no mediastinum a nd this could be probably rates to either distends or narrowing of the left mainstem bronchus and the branching bronchi. There was also interval enlargement of a right paratracheal lymph node measuring 1 x 1.4 cm. There was development of subcarinal and posterior mediastinal soft tissue density suspicious for confluent zenon mass and small bilateral perihilar lymph nodes were also identified. Based on this, the patient will need a follow-up CAT scan of the chest. She has obstructive sleep apnea which is mild in severity with an AHI of 14. I switched her to an automatic mode with a minimum pressure of 10 and a maximum pressure of 20. She feels that the pressure adjustments helped her breathe. In fact she uses her APAP on and off anytime when she gets short of breath. I performed a bronchoscopy on her after treating her with antibiotics. The bronchoscopy was completed in 10/2018 without any complication. There was a severe component of tracheal bronchomalacia and this was visualized live on the bronchoscope. Therapeutic airway suctioning was done. A BAL was done. The cultures were negative for any microbes other than Cladosporium . Note that there is no MRSA infection. She is using Pulmicort Respules twice a day and Xopenex around the clock as needed. She has a regular CPAP . She also has a portable CPAP unit and a portable nebulizer. The patient came yesterday to the emergency department because of worsening shortness of breath. In fact she had contacted my office for increased dyspnea and I gave her a prednisone burst taper which he took without any significant benefit. Antibiotics was given. In the emergency, the patient was having shortness of breath and cough and. She has a rattle unable to bring up any sputum. She has a harsh barky cough related to her severe tracheal bronchomalacia. She thought that the steroids did not help her with her breathing. She was using her CPAP. She was using a portable nebulizer. She will occasionally bring up some yellowish sputum. Her white cell count was at 12.0. Rest of the blood work and electrodes are all within normal limits. Troponins were negative. The chest x-ray showed mild infiltration/atelectasis of the right lung base that was essentially unchanged. The patient was admitted to the hospital. She was started on a combination of Ventolin/DuoNeb updrafts [id number], Pulmicort Respules twice a day, Zithromax 500 mg by mouth daily along with Rocephin and she was started on U commenced nebulized treatments once a day. She is hemodynamically stable. Currently she denied oxygen at 3 L and her pulse ox is around 92%. No nausea. No vomiting. No diarrhea. On today's evaluation of 01/24/2019 I'm seeing the patient for a follow-up. She is feeling better. She is less short of breath compared to yesterday. She has severe tracheobronchomalacia. She feels that there is a lot of mucus again within the patient's airway. He is unable to bring it up as she has extensive malacia and this has been witnessed and evaluated on previous bronchoscopies. For now she is and accommodation bronchodilators and steroids and the patient is going to have a bronchoscopy in a.m. to optimize her overall pulmonary status. On 01/25/2019 I'm seeing the patient for a follow-up. The plan is to do a bronchoscopy today for therapeutic airway suctioning. The patient is still feeling quite plugged up. She also feels that her airway closes whenever she drinks cold liquids. Unable to bring up much sputum. No fever no chills. She remains on Zithromax and Rocephin. She remains on IV Solu-Medrol. She is on Mucinex. No nausea. No vomiting. No abdominal pain. No chest pain. No other significant events overnight. She is also taking Mucomyst for retained respiratory secretions. On 01/26/2019 the patient is post bronchoscopy. She is gradually improving. On and off she is having some coughing spells yet overall she is doing baby steps and she is in the process of having gradual recovery. I obtained a lavage of the lingular segment of the left upper lobe and the results are still pending for now. Reevaluated today on 01/27/2019, patient continues to gradually improve. Less cough and less wheezing less shortness of breath. And I reviewed the cultures from her bronchoalveolar lavage seems to be negative and nondiagnostic. Looking at the previous notes from Dr. Johnson, and comparing her clinical findings today, I believe the patient is gradually getting better. And I believe we can possibly consider discharge planning in the next 24 hours. Objective - Vital Signs Vital signs: Vital Signs Temp 97.7 F 01/27/19 05:20 Pulse 84 01/27/19 13:16 Resp 18 01/27/19 05:20 BP 142/84 01/27/19 05:20 Pulse Ox 98 01/27/19 05:20 Intake & Output 01/26/19 01/27/19 01/27/19 18:59 06:59 18:59 Intake Total 1100 800 Balance 1100 800 Intake: Oral 1100 800 Other: Voiding Method Toilet # Voids 1 1 2 - Exam Physical Exam: Revealed a 53-year-old female in no distress. Head: Atraumatic, normocephalic. HEENT: PERRLA, EOMI, no icterus, no neck masses, no JVD, Mallampati class IV. Chest: Diminished breath sounds at the bases, some wheezing on forced expiratory maneuver noted, and scattered rhonchi noted. Symmetrical chest expansion.] Cardiac Exam: [Normal S1 and S2, no S3 gallop, no murmur.] Abdomen: [Soft, nontender, no megaly, no rebound, no guarding, normal bowel sounds.] Extremities: [No clubbing, no edema, no cyanosis.] Neurological Exam: [No focal neurologic deficit.] Alert and oriented 3. Psychiatric: Normal mood, normal affect and normal mental status examination. Skin: No rashes. Lymphatics: No lymphadenopathy. - Labs CBC & Chem 7: 01/24/19 06:39 01/24/19 06:39 Labs: Abnormal Lab Results - Last 24 Hours (Table) 01/26/19 01/26/19 01/27/19 Range/Units 16:40 20:21 06:56 POC Glucose (mg/dL) 166 H 132 H 117 H (75-99) mg/dL 01/27/19 Range/Units 12:12 POC Glucose (mg/dL) 112 H (75-99) mg/dL Microbiology - Last 24 Hours (Table) 01/25/19 09:16 Gram Stain - Final Bronchial Washings - Random Bronchial Washings Culture - Final Assessment and Plan Assessment: Impression: Acute exacerbation of severe persistent asthma Tracheobronchomalacia, status post bronchoscopy and cultures are negative. History of obstructive sleep apnea syndrome GERD without esophagitis History of viral cardiomyopathy Iron deficiency anemia Vitamin D deficiency History of bariatric surgery/post gastric sleeve surgery Recommendation: Continue present treatment plan, including antibiotics, steroids, bronchodilators, and most likely will consider discharge planning in the next 24 hours. We'll continue to follow. Time with Patient: Less than 30
[2019-01-27 14:11] VITALS: BP 137/78; RESP 16; TEMP 98
[2019-01-27 16:13] VITALS: PULSE 77
[2019-01-27 16:30] LABS: Glucose,Whole Blood 182 mg/dL (75-99)
--- NOTE | 2019-01-29 15:26 | P.DS ---
Providers Date of admission: 01/23/19 17:53 Expected date of discharge: 01/27/19 Attending physician: Kierra Alvarez DO Consults: 01/23/19 03:03 Consult Physician Routine Consulting Provider: Parish Johnson Consult Reason/Comments: Patient known to you Do you want consulting provider notified?: Yes Primary care physician: Andrews Kameron [facility] Course: Discharge Diagnosis Acute exacerbation of severe persistent bronchial asthma likely with acute bronchitis Severe tracheobronchial malacia with history of tracheal stent ITZ Acute on Chronic hypoxic respiratory failure Morbid obesity with BMI 39.6 GERD Vitamin D deficiency History of iron deficiency Hospital Course Patient is a 53-year-old female with a past medical history of severe bronchial asthma, severe tracheobronchomalacia status post insertion and removal of tracheal stent, obstructive sleep apnea, and osteoarthritis who presented to the emergency department with complaints of dyspnea. She had been suffering from a cough and shortness of breath for approximately 2 weeks. She contacted her laboratory technology teacher Dr. Johnson who prescribed a Medrol Dosepak. She finished this 2 days prior to presentation but did not have any relief in her symptoms. In the ER she underwent an extensive evaluation. On arrival she was tachypnic with a respiratory rate of 28. Laboratory analysis showed a white blood cell count of 12, potassium 3.4, BUN 21, calcium 10.3, and albumin of 5.3. Chest x- ray was unchanged from prior demonstrated infiltrate at the right base. She was started on steroids for acute exacerbation of asthma on antibiotics for possible tracheobronchitis. She was initiated on CPAP therapy and admitted to the ICU. She was maintained on steroids and bronchodilators. Pulmonary had been consulted and added cough supressant. Bronchoscopy performed 01/25 which showed severe tracheomalacia and granulation tissue in the mid trachea patient status improved and she was subsequently discharged home in stable condition told to follow-up with her PCP and pulmonary this discharge process took approximately 35 minutes. Focused exam Chest: Diminished breath sounds at the bases, some wheezing on forced expiratory maneuver noted, and scattered rhonchi noted. Symmetrical chest expansion Patient Condition at Discharge: Fair Plan - Discharge Summary New Discharge Prescriptions: New predniSONE 0 mg PO DIRECTED 16 Days #40 tab guaiFENesin [Mucinex] 600 mg PO Q12HR #60 tablet.er Continue Montelukast [Singulair] 10 mg PO DAILY Ferrous Sulfate [Iron (65 MG Elemental)] 325 mg PO DAILY Vitamin B Complex 1 cap PO DAILY Levalbuterol Tartrate [Xopenex Hfa Inhaler] 2 puff INHALATION RT-QID PRN #1 hfa.aer.ad PRN Reason: Shortness Of Breath Promethazine HCl [Phenergan Syrup] 12.5 mg PO HS PRN PRN Reason: Cough Multivitamins, Thera [Multivitamin (formulary)] 1 tab PO DAILY Cholecalciferol [Vitamin D3 (25 Mcg = 1000 Iu)] 5,000 unit PO DAILY Venlafaxine HCl ER [Effexor XR] 75 mg PO DAILY Omeprazole 40 mg PO BID Budesonide [Pulmicort] 0.5 mg INHALATION RT-BID Albuterol Nebulized [Ventolin Nebulized] 2.5 mg INHALATION RT-QID PRN PRN Reason: Dyspnea L.acidoph,Paracasei, B.lactis [Probiotic] 1 cap PO DAILY Methocarbamol [Robaxin] 500 mg PO Q6H PRN PRN Reason: Muscle Spasm Calcium Polycarbophil [Fibercon] 625 mg PO DAILY PRN PRN Reason: Constipation Acetaminophen Tab [Tylenol] 500 mg PO BID PRN PRN Reason: Pain Sennosides [Senna] 17.2 mg PO DAILY PRN PRN Reason: Constipation Metoprolol Succinate (ER) [Toprol XL] 25 mg PO DAILY Isosorbide Mononitrate [Isosorbide Mononitrate ER] 15 mg PO DAILY Ipratropium-Albuterol Nebulize [Duoneb 0.5 mg-3 mg/3 ml Soln] 3 ml INHALATION RT-BID Acetylcysteine [Mucomyst] 200 mg INHALATION DAILY Naltrexone HCl/Bupropion HCl [Contrave ER 8-90 mg Tablet] 1 tab PO DAILY Triamterene/Hydrochlorothiazid [Dyazide 37.5-25 Capsule] 1 cap PO DAILY Discharge Medication List Montelukast [Singulair] 10 mg PO DAILY 04/16/17 [History] Ferrous Sulfate [Iron (65 MG Elemental)] 325 mg PO DAILY 10/31/17 [History] Vitamin B Complex 1 cap PO DAILY 02/15/18 [History] Levalbuterol Tartrate [Xopenex Hfa Inhaler] 2 puff INHALATION RT-QID PRN #1 hfa.aer.ad 03/31/18 [Rx] Albuterol Nebulized [Ventolin Nebulized] 2.5 mg INHALATION RT-QID PRN 08/23/18 [History] Budesonide [Pulmicort] 0.5 mg INHALATION RT-BID 08/23/18 [History] Cholecalciferol [Vitamin D3 (25 Mcg = 1000 Iu)] 5,000 unit PO DAILY 08/23/18 [History] L.acidoph,Paracasei, B.lactis [Probiotic] 1 cap PO DAILY 08/23/18 [History] Multivitamins, Thera [Multivitamin (formulary)] 1 tab PO DAILY 08/23/18 [History] Omeprazole 40 mg PO BID 08/23/18 [History] Promethazine HCl [Phenergan Syrup] 12.5 mg PO HS PRN 08/23/18 [History] Venlafaxine HCl ER [Effexor XR] 75 mg PO DAILY 08/23/18 [History] Acetaminophen Tab [Tylenol] 500 mg PO BID PRN 09/26/18 [History] Calcium Polycarbophil [Fibercon] 625 mg PO DAILY PRN 09/26/18 [History] Isosorbide Mononitrate [Isosorbide Mononitrate ER] 15 mg PO DAILY 09/26/18 [History] Methocarbamol [Robaxin] 500 mg PO Q6H PRN 09/26/18 [History] Metoprolol Succinate (ER) [Toprol XL] 25 mg PO DAILY 09/26/18 [History] Sennosides [Senna] 17.2 mg PO DAILY PRN 09/26/18 [History] Acetylcysteine [Mucomyst] 200 mg INHALATION DAILY 10/29/18 [History] Ipratropium-Albuterol Nebulize [Duoneb 0.5 mg-3 mg/3 ml Soln] 3 ml INHALATION RT-BID 10/29/18 [History] Naltrexone HCl/Bupropion HCl [Contrave ER 8-90 mg Tablet] 1 tab PO DAILY 01/23/19 [History] Triamterene/Hydrochlorothiazid [Dyazide 37.5-25 Capsule] 1 cap PO DAILY 01/23/19 [History] guaiFENesin [Mucinex] 600 mg PO Q12HR #60 tablet.er 01/27/19 [Rx] predniSONE 0 mg PO DIRECTED 16 Days #40 tab 01/27/19 [Rx] Follow up Appointment(s)/Referral(s): Parish Johnson MD [STAFF PHYSICIAN] - 02/12/19 3:00 pm Andrews Melo [Primary Care Provider] - 01/30/19 9:00 am Patient Instructions/Handouts: Acute Bronchitis (ED), COPD (Chronic Obstructive Pulmonary Disease) (DC), Pneumonia (DC) Activity/Diet/Wound Care/Special Instructions: PNEUMONIA 1. Continue coughing and breathing exercises to help clear your lungs of se cretions. 2. Sit upright during the day to promote lung expansion. Avoid lying flat. 3. Use incentive spirometer every hour to open your airways. 4. Wash your hands before taking your medications or using your nebulizer. 5. Drink clear liquids as directed, they can help loosen secretions. Avoid milk products, as these can make secretions thicker. 6. Do not smoke, or be around others who smoke. 7. Call your physician if your shortness of breath worsens, if you develop an increased fever greater than 101. Discharge Disposition: HOME SELF-CARE
== END 2019-01-27 17:34 | disposition home or self-care (01) | DRG 193 ==
LOC: EC 00:32 → 2SICU 03:04 → INTOOBSV 03:04 → 2SICU 03:44 → 3SCARD 16:10 → OBSVTOIN 17:53 → 4MS4W 01-24 15:11
PROVIDERS: ADMIT Internal Medicine; ATTEND Internal Medicine
PROC: 0B9H7ZX Drainage of Lung Lingula, Via Natural or Artificial Opening, Diagnostic (ICD-10-PCS; principal; 2019-01-25 09:00)
DX: J18.9 Pneumonia, unspecified organism (principal); J96.21 Acute and chronic respiratory failure with hypoxia; J45.51 Severe persistent asthma with (acute) exacerbation; J44.0 Chronic obstructive pulmonary disease with (acute) lower respiratory infection; I42.9 Cardiomyopathy, unspecified; J98.11 Atelectasis; J20.9 Acute bronchitis, unspecified; B95.8 Unspecified staphylococcus as the cause of diseases classified elsewhere; D50.9 Iron deficiency anemia, unspecified; E55.9 Vitamin D deficiency, unspecified; E66.01 Morbid (severe) obesity due to excess calories; F32.9 Major depressive disorder, single episode, unspecified; F41.9 Anxiety disorder, unspecified; G47.33 Obstructive sleep apnea (adult) (pediatric); K21.9 Gastro-esophageal reflux disease without esophagitis; Z68.39 Body mass index [BMI] 39.0-39.9, adult; Z79.51 Long term (current) use of inhaled steroids; Z79.52 Long term (current) use of systemic steroids; Z79.899 Other long term (current) drug therapy; Z80.49 Family history of malignant neoplasm of other genital organs; Z82.49 Family history of ischemic heart disease and other diseases of the circulatory system; Z82.62 Family history of osteoporosis; Z83.3 Family history of diabetes mellitus; Z90.710 Acquired absence of both cervix and uterus; Z90.721 Acquired absence of ovaries, unilateral; Z98.1 Arthrodesis status; Z98.84 Bariatric surgery status; Z88.8 Allergy status to other drugs, medicaments and biological substances; Z88.6 Allergy status to analgesic agent; Z88.1 Allergy status to other antibiotic agents; Z91.013 Allergy to seafood
CPT/HCPCS: 31624; 36415; 71045; 71046; 80048; 80053; 83735; 83880; 84132; 84484; 85025; 85027; 85610; 85730; 87070; 87102; 87205; 87252; 87496; 87498; 87502; 87529; 87634; 87798; 93005; 94640; 94660; 94760; 96365; 99285

== ENCOUNTER 2019-03-26 19:16 | Inpatient (IN) | payer OTHER, BC ==
[2019-03-26] MEDS ORDERED: SODIUM CHLORIDE 0.9% 1,000 ML IV STA (19:50)
[2019-03-26] MEDS ORDERED: methylPREDNISolone SOD SUCCI 125 MG/2 ML VIAL IV STA (19:50)
[2019-03-26] MEDS ORDERED: ALBUTEROL NEBULIZED 2.5 MG/3 ML INHALATION STA (19:50)
[2019-03-26] MEDS ORDERED: ACETAMINOPHEN TAB 500 MG TAB PO STA (19:50)
[2019-03-26] MEDS ORDERED: IPRATROPIUM 0.5 MG/2.5 ML NEBU INHALATION STA (19:50)
--- NOTE | 2019-03-26 19:51 | ED ---
General Adult HPI - General Chief complaint: Shortness of Breath Stated complaint: SOB Time Seen by Provider: 03/26/19 19:20 Source: patient, RN notes reviewed, old records reviewed Mode of arrival: wheelchair Limitations: no limitations - History of Present Illness Initial comments: This is a 53-year-old female who presents emergency department with past medical history significant for bronchial malacia and asthma. Patient states today she had 102 fever at home. Patient states she started having difficulty breathing earlier and she was oxygenating 88% at home. Patient denies any chest pain. Patient denies any palpitations. Patient denies any relief with her CPAP at home. Patient states she does to breathing treatments but did not seem to help. Patient states when the pulse ox got down to 88% she decided come the emergency department. Patient states she had a bronchial stent placed and had to be removed secondary to infection recently. Patient denies any abdominal pain patient denies any lightheadedness or dizziness. - Related Data Home Medications Medication Instructions Recorded Confirmed Montelukast [Singulair] 10 mg PO DAILY 04/16/17 01/23/19 Ferrous Sulfate [Iron (65 MG 325 mg PO DAILY 10/31/17 01/23/19 Elemental)] Vitamin B Complex 1 cap PO DAILY 02/15/18 01/23/19 Albuterol Nebulized [Ventolin 2.5 mg INHALATION RT-QID PRN 08/23/18 01/23/19 Nebulized] Budesonide [Pulmicort] 0.5 mg INHALATION RT-BID 08/23/18 01/23/19 Cholecalciferol [Vitamin D3 (25 5,000 unit PO DAILY 08/23/18 01/23/19 Mcg = 1000 Iu)] L.acidoph,Paracasei, B.lactis 1 cap PO DAILY 08/23/18 01/23/19 [Probiotic] Multivitamins, Thera [Multivitamin 1 tab PO DAILY 08/23/18 01/23/19 (formulary)] Omeprazole 40 mg PO BID 08/23/18 01/23/19 Promethazine HCl [Phenergan Syrup] 12.5 mg PO HS PRN 08/23/18 01/23/19 Venlafaxine HCl ER [Effexor XR] 75 mg PO DAILY 08/23/18 01/23/19 Acetaminophen Tab [Tylenol] 500 mg PO BID PRN 09/26/18 01/23/19 Calcium Polycarbophil [Fibercon] 625 mg PO DAILY PRN 09/26/18 01/23/19 Isosorbide Mononitrate [Isosorbide 15 mg PO DAILY 09/26/18 01/23/19 Mononitrate ER] Methocarbamol [Robaxin] 500 mg PO Q6H PRN 09/26/18 01/23/19 Metoprolol Succinate (ER) [Toprol 25 mg PO DAILY 09/26/18 01/23/19 XL] Sennosides [Senna] 17.2 mg PO DAILY PRN 09/26/18 01/23/19 Acetylcysteine [Mucomyst] 200 mg INHALATION DAILY 10/29/18 01/23/19 Ipratropium-Albuterol Nebulize 3 ml INHALATION RT-BID 10/29/18 01/23/19 [Duoneb 0.5 mg-3 mg/3 ml Soln] Naltrexone HCl/Bupropion HCl 1 tab PO DAILY 01/23/19 01/23/19 [Contrave ER 8-90 mg Tablet] Triamterene/Hydrochlorothiazid 1 cap PO DAILY 01/23/19 01/23/19 [Dyazide 37.5-25 Capsule] Previous Rx's Medication Instructions Recorded Levalbuterol Tartrate [Xopenex Hfa 2 puff INHALATION RT-QID PRN #1 03/31/18 Inhaler] hfa.aer.ad guaiFENesin [Mucinex] 600 mg PO Q12HR #60 tablet.er 01/27/19 predniSONE 0 mg PO DIRECTED 16 Days #40 tab 01/27/19 Allergies Allergy/AdvReac Type Severity Reaction Status Date / Time ciprofloxacin [From Cipro] Allergy Itching Verified 03/26/19 19:21 gluten Allergy Abdominal Verified 03/26/19 19:21 Pain shellfish derived [Shellfish] Allergy Vomiting Verified 03/26/19 19:21 NSAIDS (Non-Steroidal AdvReac Abdominal Verified 03/26/19 19:21 Anti-Inflamma Pain Review of Systems ROS Statement: Those systems with pertinent positive or pertinent negative responses have been documented in the HPI. ROS Other: All systems not noted in ROS Statement are negative. Past Medical History Past Medical History: Asthma, COPD, GERD/Reflux, Osteoarthritis (OA), Pneumonia, Sleep Apnea/CPAP/BIPAP, Thyroid Disorder Additional Past Medical History / Comment(s): severe tracheobronchomalacia , obstructive sleep apnea, past cardiomyopathy thought viral, occasional tachycardia especially when eats and with activity, ITZ with CPAP use, near syn cope when she had the flu and with a dental procedure-checked fitbit and heart rate in 50s, thyroid nodules with neg bx. Spinal stenosis. Gluten sensitivity. Vitamin D deficiency, iron deficiency anemia, migraines,bruising more easily History of Any Multi-Drug Resistant Organisms: None Reported Past Surgical History: Appendectomy, Back Surgery, Bariatric Surgery, Section, Heart Catheterization, Hysterectomy, Orthopedic Surgery, Tonsillectomy Additional Past Surgical History / Comment(s): 2012 gastric sleeve, with hiatal hernia repair 11/2016 spinal fusion/decompression L4-L5 and S1, bilateral shoulder arthroscopies, 3 laparotomies d/t pain/ovarian cyst/adhesions, hysterectomy with R oophorectomy, 2 D&Cs after miscarriages, lipoma removed from left side of back, 2016 Cardiac cath-normal, colonoscopy, EGD's, trachea stent removed Past Anesthesia/Blood Transfusion Reactions: Motion Sickness, Postoperative Nausea & Vomiting (PONV) Additional Past Anesthesia/Blood Transfusion Reaction / Comment(s): difficult iv start Past Psychological History: Anxiety, Depression Smoking Status: Never smoker Past Alcohol Use History: Occasional Past Drug Use History: None Reported - Past Family History Father Family Medical History: Cancer, Diabetes Mellitus, Renal Disease Additional Family Medical History / Comment(s): Father is from kidney failure d/t diabetes. He at the age of 68yrs. Mother Family Medical History: Cancer, Congestive Heart Failure (CHF), Coronary Artery Disease (CAD), Diabetes Mellitus, Myocardial Infarction ([place]), Thyroid Disorder Additional Family Medical History / Comment(s): Mother has had multiple MIs with first one at about age 72 yrs. She has had CABG and has 7 cardiac stents. She is in remision from uterine cancer and has osteoporosis. She is 81 yrs old, polymyalgia rheumatica . General Exam - General Exam Comments Initial Comments: GENERAL: Patient is well-developed and well-nourished. Patient is nontoxic and well- hydrated and is in mild distress. ENT: Neck is soft and supple. No significant lymphadenopathy is noted. Oropharynx is clear. Moist mucous membranes. Neck has full range of motion without eliciting any pain. EYES: The sclera were anicteric and conjunctiva were pink and moist. Extraocular movements were intact and pupils were equal round and reactive to light. Eyelids were unremarkable. PULMONARY: Diffuse rhonchi CARDIOVASCULAR: There is a regular rate and rhythm without any murmurs gallops or rubs. ABDOMEN: Soft and nontender with normal bowel sounds. No palpable organomegaly was noted. There is no palpable pulsatile mass. SKIN: Skin is clear with no lesions or rashes and otherwise unremarkable. NEUROLOGIC: Patient is alert and oriented x3. Cranial nerves II through XII are grossly intact. Motor and sensory are also intact. Normal speech, volume and content. Symmetrical smile. MUSCULOSKELETAL: Normal extremities with adequate strength and full range of motion. No lower extremity swelling or edema. No calf tenderness. LYMPHATICS: No significant lymphadenopathy is noted PSYCHIATRIC: Normal psychiatric evaluation. Limitations: no limitations Course Vital Signs 03/26/19 03/26/19 03/26/19 19:18 20:02 20:21 Temperature 98.1 F Pulse Rate 125 H 120 H 124 H Respiratory 34 H Rate Blood Pressure 146/91 O2 Sat by Pulse 95 Oximetry Medical Decision Making - Medical Decision Making EKG shows sinus tachycardia with occasional PVC at 125 bpm CA interval 170 Fortress 74 QT interval 32 QTC is 435. Patient's EKG is of poor quality but there is no obvious ST segment elevation. Chest x-ray shows no acute normalities. I started the patient on Rocephin because of her history of fever. I put her on BiPAP and I gave her breathing treatment emergency department. Spoke with and she agreed to admit the patient admitted the patient I consulted pulmonary. - Lab Data Result diagrams: 03/26/19 20:09 03/26/19 20:09 Lab Results 03/26/19 03/26/19 03/26/19 Range/Units 20:09 20:09 20:09 WBC 13.1 H (3.8-10.6) k/uL RBC 5.03 (3.80-5.40) m/uL Hgb 14.5 (11.4-16.0) gm/dL Hct 43.6 (34.0-46.0) % MCV 86.7 (80.0-100.0) fL MCH 28.8 (25.0-35.0) pg MCHC 33.2 (31.0-37.0) g/dL RDW 14.0 (11.5-15.5) % Plt Count 306 (150-450) k/uL Neutrophils % 82 % Lymphocytes % 12 % Monocytes % 3 % Eosinophils % 1 % Basophils % 1 % Neutrophils # 10.8 H (1.3-7.7) k/uL Lymphocytes # 1.6 (1.0-4.8) k/uL Monocytes # 0.4 (0-1.0) k/uL Eosinophils # 0.1 (0-0.7) k/uL Basophils # 0.1 (0-0.2) k/uL PT (9.0-12.0) sec INR (<1.2) APTT (22.0-30.0) sec Sample Site ABG pH (7.35-7.45) ABG pCO2 (35-45) mmHg ABG pO2 (83-108) mmHg ABG HCO3 (21-25) mmol/L ABG Total CO2 (19-24) mmol/L ABG O2 Saturation (94-97) % ABG Base Excess mmol/L Chauncey Test FiO2 % Sodium 141 (137-145) mmol/L Potassium 3.6 (3.5-5.1) mmol/L Chloride 101 (98-107) mmol/L Carbon Dioxide 28 (22-30) mmol/L Anion Gap 12 mmol/L BUN 9 (7-17) mg/dL Creatinine 0.96 (0.52-1.04) mg/dL Est GFR (CKD-EPI)AfAm 79 (>60 ml/min/1.73 sqM) Est GFR (CKD-EPI)NonAf 69 (>60 ml/min/1.73 sqM) Glucose 108 H (74-99) mg/dL Plasma Lactic Acid Lyle 1.7 (0.7-2.0) mmol/L Calcium 10.0 (8.4-10.2) mg/dL Magnesium 2.3 (1.6-2.3) mg/dL Total Bilirubin 0.5 (0.2-1.3) mg/dL AST 25 (14-36) U/L ALT 15 (4-34) U/L Alkaline Phosphatase 86 (38-126) U/L Total Protein 8.1 (6.3-8.2) g/dL Albumin 5.1 H (3.5-5.0) g/dL 03/26/19 03/26/19 Range/Units 20:09 20:52 WBC (3.8-10.6) k/uL RBC (3.80-5.40) m/uL Hgb (11.4-16.0) gm/dL Hct (34.0-46.0) % MCV (80.0-100.0) fL MCH (25.0-35.0) pg MCHC (31.0-37.0) g/dL RDW (11.5-15.5) % Plt Count (150-450) k/uL Neutrophils % % Lymphocytes % % Monocytes % % Eosinophils % % Basophils % % Neutrophils # (1.3-7.7) k/uL Lymphocytes # (1.0-4.8) k/uL Monocytes # (0-1.0) k/uL Eosinophils # (0-0.7) k/uL Basophils # (0-0.2) k/uL PT 9.7 (9.0-12.0) sec INR 0.9 (<1.2) APTT 25.0 (22.0-30.0) sec Sample Site rbrach ABG pH 7.36 (7.35-7.45) ABG pCO2 54 H (35-45) mmHg ABG pO2 65 L (83-108) mmHg ABG HCO3 30 H (21-25) mmol/L ABG Total CO2 32 H (19-24) mmol/L ABG O2 Saturation 92.3 L (94-97) % ABG Base Excess 4.8 mmol/L Chauncey Test Yes FiO2 30 % Sodium (137-145) mmol/L Potassium (3.5-5.1) mmol/L Chloride (98-107) mmol/L Carbon Dioxide (22-30) mmol/L Anion Gap mmol/L BUN (7-17) mg/dL Creatinine (0.52-1.04) mg/dL Est GFR (CKD-EPI)AfAm (>60 ml/min/1.73 sqM) Est GFR (CKD-EPI)NonAf (>60 ml/min/1.73 sqM) Glucose (74-99) mg/dL Plasma Lactic Acid Lyle (0.7-2.0) mmol/L Calcium (8.4-10.2) mg/dL Magnesium (1.6-2.3) mg/dL Total Bilirubin (0.2-1.3) mg/dL AST (14-36) U/L ALT (4-34) U/L Alkaline Phosphatase (38-126) U/L Total Protein (6.3-8.2) g/dL Albumin (3.5-5.0) g/dL Disposition Referrals: Andrews Melo [Primary Care Provider] - 1-2 days
[2019-03-26 20:18] LABS: Basophils # (A) 0.1 k/uL (0-0.2); Basophils % (A) 1 %; Eosinophils # (A) 0.1 k/uL (0-0.7); Eosinophils % (A) 1 %; HCT 43.6 % (34.0-46.0); HGB 14.5 gm/dL (11.4-16.0); Lymphocytes # (A) 1.6 k/uL (1.0-4.8); Lymphocytes % (A) 12 %; MCH 28.8 pg (25.0-35.0); MCHC 33.2 g/dL (31.0-37.0); MCV 86.7 fL (80.0-100.0); Mean Platelet Volume 8.3; Monocytes # (A) 0.4 k/uL (0-1.0); Monocytes % (A) 3 %; Neutrophils # (A) 10.8 k/uL (1.3-7.7); Neutrophils % (A) 82 %; Platelet Count 306 k/uL (150-450); RBC 5.03 m/uL (3.80-5.40); WBC 13.1 k/uL (3.8-10.6)
[2019-03-26 20:27] LABS: INR 0.9 (<1.2); Prothrombin Time 9.7 sec (9.0-12.0)
[2019-03-26 20:30] LABS: Albumin 5.1 g/dL (3.5-5.0); Magnesium 2.3 mg/dL (1.6-2.3); Potassium 3.6 mmol/L (3.5-5.1); Total Bilirubin 0.5 mg/dL (0.2-1.3); Total Protein 8.1 g/dL (6.3-8.2)
--- NOTE | 2019-03-26 20:44 | XR ---
EXAMINATION TYPE: XR chest 1V DATE OF EXAM: 03/26/2019 COMPARISON: 01/24/2019 HISTORY: Pneumonia TECHNIQUE: FINDINGS: There is no heart failure nor confluent pneumonic infiltrate. Costophrenic angles are clear . There are chest leads. IMPRESSION: No active cardiopulmonary disease. No change.
[2019-03-26 20:58] LABS: ABG Base Excess 4.8 mmol/L; ABG HCO3 30 mmol/L (21-25); ABG Oxygen Saturation 92.3 % (94-97); ABG PCO2 54 mmHg (35-45); ABG PH 7.36 (7.35-7.45); ABG PO2 65 mmHg (83-108); ABG TCO2 32 mmol/L (19-24); Allen Test Performed? Yes
[2019-03-26] MEDS ORDERED: SODIUM CHLORIDE 0.9% 1,000 ML IV ONE (21:07)
[2019-03-26] MEDS ORDERED: AZITHROMYCIN 500 MG in SODIUM CHLORIDE 0.9% 250 ML IVPB STA (21:10)
--- NOTE | 2019-03-26 23:21 | P.HPIM ---
History of Present Illness H&P Date: 03/26/19 Patient is a 53-year-old female with a PMH of severe persistent bronchial asthma, severe tracheobronchial malacia with history of tracheal stent (on intermittent day-time CPAP), chronic hypoxic respiratory failure, morbid obesity who presented to the ED with complaints of gradually worsening shortness of breath and cough. The patient reports that over the past few days, her cough is occasionally productive of yellow/green phlegm. She denied fevers though did endorse pleuritic chest discomfort. Denied nausea, vomiting, dizziness, diaphoresis. She noted compliance with her breathing treatments as well as her intermittent CPAP throughout the day. She follows with Dr. Sharma in and reports that she did not contact him about this as of yet. The patient was previously admitted to [facility] in December 2018, when she underwent a bronchoscopy which revealed severe tracheal malacia and granulation tissue. The patient was continued on bronchodilators and steroids and had improved and was subsequently discharged home on that visit. The patient underwent an extensive Eischen in the emergency room. Chest x-ray were revealed no acute findings. EKG revealed a sinus tachycardia. Telemetry evaluation revealed influenza negative, troponin less than 0.012, ABG with pH of 7.36, pCO2 54, pO2 65, WBC count 13.1, hemoglobin 14.5, platelets 306, BUN 9, and a creatinine of 0.96. Review of Systems Pertinent positives and negatives as discussed in HPI, a complete review of systems was performed and all other systems are negative. Past Medical History Past Medical History: Asthma, COPD, GERD/Reflux, Osteoarthritis (OA), Pneumonia, Sleep Apnea/CPAP/BIPAP, Thyroid Disorder Additional Past Medical History / Comment(s): severe tracheobronchomalacia , obstructive sleep apnea, past cardiomyopathy thought viral, occasional tachycardia especially when eats and with activity, ITZ with CPAP use, near syncope when she had the flu and with a dental procedure-checked fitbit and heart rate in 50s, thyroid nodules with neg bx. Spinal stenosis. Gluten sensitivity. Vitamin D deficiency, iron deficiency anemia, migraines,bruising more easily History of Any Multi-Drug Resistant Organisms: None Reported Past Surgical History: Appendectomy, Back Surgery, Bariatric Surgery, Section, Heart Catheterization, Hysterectomy, Orthopedic Surgery, Tonsillectomy Additional Past Surgical History / Comment(s): 2012 gastric sleeve, with hiatal hernia repair 11/2016 spinal fusion/decompression L4-L5 and S1, bilateral sh oulder arthroscopies, 3 laparotomies d/t pain/ovarian cyst/adhesions, hysterectomy with R oophorectomy, 2 D&Cs after miscarriages, lipoma removed from left side of back, 2016 Cardiac cath-normal, colonoscopy, EGD's, trachea stent removed Past Anesthesia/Blood Transfusion Reactions: Motion Sickness, Postoperative Nausea & Vomiting (PONV) Additional Past Anesthesia/Blood Transfusion Reaction / Comment(s): difficult iv start Past Psychological History: Anxiety, Depression Smoking Status: Never smoker Past Alcohol Use History: Occasional Past Drug Use History: None Reported - Past Family History Father Family Medical History: Cancer, Diabetes Mellitus, Renal Disease Additional Family Medical History / Comment(s): Father is from kidney failure d/t diabetes. He at the age of 68yrs. Mother Family Medical History: Cancer, Congestive Heart Failure (CHF), Coronary Artery Disease (CAD), Diabetes Mellitus, Myocardial Infarction ([place]), Thyroid Disorder Additional Family Medical History / Comment(s): Mother has had multiple MIs with first one at about age 72 yrs. She has had CABG and has 7 cardiac stents. She is in remision from uterine cancer and has osteoporosis. She is 81 yrs old, polymyalgia rheumatica . Medications and Allergies Home Medications Medication Instructions Recorded Confirmed Type Montelukast [Singulair] 10 mg PO DAILY 04/16/17 03/26/19 History Ferrous Sulfate [Iron (65 MG 325 mg PO DAILY 10/31/17 03/26/19 History Elemental)] Vitamin B Complex 1 cap PO DAILY 02/15/18 03/26/19 History Levalbuterol Tartrate [Xopenex Hfa 2 puff INHALATION RT-QID PRN #1 03/31/18 03/26/19 Rx Inhaler] hfa.aer.ad Albuterol Nebulized [Ventolin 2.5 mg INHALATION RT-QID PRN 08/23/18 03/26/19 History Nebulized] Budesonide [Pulmicort] 0.5 mg INHALATION RT-BID 08/23/18 03/26/19 History Cholecalciferol [Vitamin D3 (25 5,000 unit PO DAILY 08/23/18 03/26/19 History Mcg = 1000 Iu)] L.acidoph,Paracasei, B.lactis 1 cap PO DAILY 08/23/18 03/26/19 History [Probiotic] Multivitamins, Thera [Multivitamin 1 tab PO DAILY 08/23/18 03/26/19 History (formulary)] Omeprazole 40 mg PO BID 08/23/18 03/26/19 History Promethazine HCl [Phenergan Syrup] 12.5 mg PO HS PRN 08/23/18 03/26/19 History Venlafaxine HCl ER [Effexor XR] 75 mg PO DAILY 08/23/18 03/26/19 History Acetaminophen Tab [Tylenol] 500 mg PO BID PRN 09/26/18 03/26/19 History Calcium Polycarbophil [Fibercon] 625 mg PO DAILY PRN 09/26/18 03/26/19 History Isosorbide Mononitrate [Isosorbide 15 mg PO DAILY 09/26/18 03/26/19 History Mononitrate ER] Metoprolol Succinate (ER) [Toprol 25 mg PO DAILY 09/26/18 03/26/19 History XL] Sennosides [Senna] 17.2 mg PO DAILY PRN 09/26/18 03/26/19 History Acetylcysteine [Mucomyst] 200 mg INHALATION RT-DAILY 10/29/18 03/26/19 History Ipratropium-Albuterol Nebulize 3 ml INHALATION RT-BID 10/29/18 03/26/19 History [Duoneb 0.5 mg-3 mg/3 ml Soln] Naltrexone HCl/Bupropion HCl 2 tab PO BID 01/23/19 03/26/19 History [Contrave ER 8-90 mg Tablet] Triamterene/Hydrochlorothiazid 1 cap PO DAILY 01/23/19 03/26/19 History [Dyazide 37.5-25 Capsule] Biotin 5,000 mcg PO DAILY 03/26/19 03/26/19 History predniSONE 40 mg PO DAILY 03/26/19 03/26/19 History Allergies Allergy/AdvReac Type Severity Reaction Status Date / Time ciprofloxacin [From Cipro] Allergy Itching Verified 03/26/19 22:20 gluten Allergy Abdominal Verified 03/26/19 22:20 Pain/HEADACHES NSAIDS (Non-Steroidal AdvReac Abdominal Verified 03/26/19 22:20 Anti-Inflamma Pain shellfish derived [Shellfish] AdvReac Vomiting Verified 03/26/19 22:20 Physical Exam Vitals: Vital Signs Temp Pulse Resp BP Pulse Ox 03/26/19 20:21 124 H 03/26/19 20:02 120 H 03/26/19 19:18 98.1 F 125 H 34 H 146/91 95 Intake and Output 03/26/19 03/26/19 03/27/19 14:59 22:59 06:59 Other: Weight 86.183 kg General: non toxic female on BiPAP, no conversational dyspnea, in no acute distress, appears at stated age, morbidly obese Derm: no unusual rashes/lesions no unusual ecchymoses, warm, dry Head: atraumatic, normocephalic, symmetric Eyes: EOMI, no lid lag, anicteric sclera, pupils equal round reactive to light ENT: Nose and ears atraumatic, no thrush, no pharyngeal erythema Neck: No thyromegaly, no cervical lymphadenopathy, trachea midline, supple Mouth: no lip lesion, mucus membranes moist Cardiovascular: S1S2 reg, no murmur, positive posterior tibial pulse bilateral, no edema, capillary refill less than 2 seconds Lungs: Bilateral wheezing with scattered rhonchi and poor air entry and an expiratory rattling sound in all lung luevano, no rales , no accessory muscle use Abdominal: soft, nontender to palpation, no guarding, no appreciable organomegaly, normal bowel sounds Ext: no gross muscle atrophy, muscle strength 5 out of 5 in all 4 extremities grossly, no contractures, Neuro: CN II-XI grossly intact, light touch intact all 4 extremities, finger to nose within normal limits, Psych: Alert, oriented, appropriate affect Results CBC & Chem 7: 03/26/19 20:09 03/26/19 20:09 Labs: Abnormal Lab Results - Last 24 Hours (Table) 03/26/19 03/26/19 03/26/19 Range/Units 20:09 20:09 20:52 WBC 13.1 H (3.8-10.6) k/uL Neutrophils # 10.8 H (1.3-7.7) k/uL ABG pCO2 54 H (35-45) mmHg ABG pO2 65 L (83-108) mmHg ABG HCO3 30 H (21-25) mmol/L ABG Total CO2 32 H (19-24) mmol/L ABG O2 Saturation 92.3 L (94-97) % Glucose 108 H (74-99) mg/dL Albumin 5.1 H (3.5-5.0) g/dL Assessment and Plan Plan: Acute exacerbation of severe bronchial asthma in setting of tracheomalacia -C/w Solu-Medrol 60 mg every 6 hourly -Start Budesonide, Mycomyst -Start Xopenex due to tachycardia -Ceftriaxone and azithromycin for now -Pulmonary consulted -Continue with BiPAP for now. Patient uses CPAP intermittently at home throughout the day -C/w Singulair Acute on chronic hypoxic respiratory failure -Patient uses 3 L of nasal cannula oxygen continuously at home -Continue with supplemental oxygen Chronic conditions: HTN, GERD, vitamin D deficiency, iron deficiency anemia -Continue with home meds DVT prophylaxis -Heparin The patient is admitted with an anticipated more than 2 midnight stay for evaluation of severe bronchial asthma CODE STATUS: Full Code Discussed with: Patient Anticipated discharge date: 4-[address]: Home A total of 45 minutes was spent on the care of this complex patient more than 50% of the time was spent in counseling and care coordination.
[2019-03-27] MEDS ORDERED: IPRATROPIUM-ALBUTEROL 3 ML NEB INHALATION SCH
[2019-03-27] MEDS: HEPARIN SODIUM,PORCINE 5,000 UNIT/ML 1 ML VIAL SQ SCH ×4 (01:47→23:26)
[2019-03-27] MEDS: methylPREDNISolone SOD SUCCI 125 MG/2 ML VIAL IV SCH ×5 (01:47→23:26)
[2019-03-27] MEDS: ALBUTEROL NEBULIZED 2.5 MG/3 ML INHALATION PRN ×5 (02:02→19:49)
[2019-03-27] MEDS: CALCIUM CARBONATE 500 MG CHEWABLE PO PRN ×2 (04:56→20:53)
[2019-03-27] MEDS: BUDESONIDE 0.5 MG/2 ML NEBU INHALATION SCH ×2 (07:15→19:49)
[2019-03-27] MEDS: ACETYLCYSTEINE 800 MG/4 ML VIAL INHALATION SCH (07:15)
[2019-03-27] MEDS: PANTOPRAZOLE 40 MG TABLET PO SCH ×2 (08:45→20:52)
[2019-03-27] MEDS: ISOSORBIDE MONONITRATE ER 15 MG TAB PO SCH (08:45)
[2019-03-27] MEDS: MONTELUKAST 10 MG TAB PO SCH (08:45)
[2019-03-27] MEDS: METOPROLOL SUCCINATE (ER) 25 MG TAB.ER.24H PO SCH (08:46)
[2019-03-27] MEDS: FERROUS SULFATE 325 MG TAB PO SCH (08:46)
[2019-03-27] MEDS: TRIAMTERENE-HCTZ 37.5-25MG 1 EACH CAP PO SCH (08:46)
[2019-03-27] MEDS ORDERED: ISOSORBIDE MONONITRATE ER 30 MG TAB.ER.24H PO SCH (09:00)
--- NOTE | 2019-03-27 11:00 | P.CNPUL ---
History of Present Illness Consult date: 03/27/19 Reason for consult: dyspnea History of present illness: This is a 53-year-old female patient is known to me. This patient is a very complicated case of severe asthma, severe tracheobronchomalacia and obstructive sleep apnea. The patient was taking care of with me here and through interventional pulmonary program at [facility]. As mentioned, she has severe tracheobronchomalacia and she had a Chary-en-Y stent inserted which stayed in for a total of 4-1/2 months and ultimately the stent was taken out as the patient was having significant infectious complications with various bacteria including staph aureus, not MRSA. The patient required several antibiotic treatments. During the course of her disease, the patient underwent several CAT scans of the chest I was able to obtain copies of all CAT scans that were done at [facility]. She was seen by Dr. Tijerina and Dr. Davidson. She was not a surgical candidate at this point in time. The stent was removed and her last bout of antibiotics was Bactrim that was given for a staphylococcal infection. As for the most recent CAT scan of the chest that was done on 08/23/2018, there was narrowing of the left mainstem bronchus secondary to encasement by a soft tissue density that was a new finding. There was also suggestion of paratracheal air consistent with a small area of no mediastinum and this could be probably rates to either distends or narrowing of the left angie nstem bronchus and the branching bronchi. There was also interval enlargement of a right paratracheal lymph node measuring 1 x 1.4 cm. There was development of subcarinal and posterior mediastinal soft tissue density suspicious for confluent zenon mass and small bilateral perihilar lymph nodes were also identified. Based on this, the patient will need a follow-up CAT scan of the chest. She has obstructive sleep apnea which is mild in severity with an AHI of 14. I switched her to an automatic mode with a minimum pressure of 10 and a maximum pressure of 20. She feels that the pressure adjustments helped her breathe. In fact she uses her APAP on and off anytime when she gets short of breath. I performed a bronchoscopy on her after treating her with antibiotics. The bronchoscopy was completed in 10/2018 without any complication. There was a severe component of tracheal bronchomalacia and this was visualized live on the bronchoscope. Therapeutic airway suctioning was done. A BAL was done. The cultures were negative for any microbes other than Cladosporium . Note that there is no MRSA infection. She is using Pulmicort Respules twice a day and Xopenex around the clock as needed. She has a regular CPAP . She also has a portable CPAP unit and a portable nebulizer Note that the patient was in the hospital back in December 2018 Plan the patient was treated for an acute exacerbation/bronchitis and the patient was given Mucinex and prednisone burst taper at time of discharge and she went back to utilize her routine respiratory medications. Chest x-rays that were done showed no evidence of any acute abnormalities. During the course of the treatment, she was admitted to the intensive care unit where she was given also CPAP/BiPAP therapy. 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 The patient was treated with Diflucan. The patient was discharged home in she came back yesterday to emergency department with similar symptoms of increased dyspnea cough and chest congestion. Note that the patient has some low-grade fever. The patient was using her CPAP machine continuously. She was producing some yellowish sputum and minimal amounts. For now she has a rattling noise that comes from her neck related to her severe tracheobronchomalacia with exhalation and cough. Occasionally is also present during inhalation. Review of Systems Constitutional Constitutional: no excess weight gain, no excess weight loss, no loss of appetite, no fever, no fatigue, diminished activity, fatigue Eyes Eyes: no eye pain, no blurry vision, no eye redness, no eye itchiness, no eye swelling, no eye discharge ENMT ENMT: no ear pain, no ear discharge, no hearing loss, no sinus pressure, no swelling, no congestion, no sore throat, no hoarseness, no mouth lesions, no nasal discharge Cardiovascular Cardiovascular: no chest pain, no rapid heart rate, no cyanosis, no pallor Respiratory Respiratory: chest tightness, no pain with respiration, normal breathing sounds, normal respiration rate, increased cough, dry, wheezing, difficulty breathing Gastrointestinal GI: no difficulty swallowing, no abdominal pain, no nausea, no vomiting, no diarrhea, no constipation, no blood in stools Genitourinary General: no blood in urine, no pain during urination, no increased frequency of urination, no voiding urgency Musculoskeletal Musculoskeletal: no soft tissue swelling, no joint swelling, no limited motion, no myalgia Skin Skin: no pain, no itchiness, no skin redness, no rash, no hives, no skin lesions, no swelling, no bruising Neurological symptoms Neuro: no numbness, no weakness, no tingling, no burning, no shooting pain, no headache, no diziness, no loss of consciousness Endocrine Endocrine: no increased thirst, no temperature intolerance Psychiatric Psych: no depression, no sleep disturbances, feeling safe in relationship, no alcohol abuse Hematologic/Lymphatic Hematologic/Lymphatic no swollen glands Allergic/Immunologic Allergy/Immunologic: no sinus pressure, no itching Past Medical History Past Medical History: Asthma, COPD, GERD/Reflux, Osteoarthritis (OA), Pneumonia, Sleep Apnea/CPAP/BIPAP, Thyroid Disorder Additional Past Medical History / Comment(s): severe tracheobronchomalacia , obstructive sleep apnea, past cardiomyopathy thought viral, occasional tachycardia especially when eats and with activity, ITZ with CPAP use, near syncope when she had the flu and with a dental procedure-checked fitbit and heart rate in 50s, thyroid nodules with neg bx. Spinal stenosis. Gluten sensitivity. Vitamin D deficiency, iron deficiency anemia, migraines,bruising more easily History of Any Multi-Drug Resistant Organisms: None Reported Past Surgical History: Appendectomy, Back Surgery, Bariatric Surgery, Section, Heart Catheterization, Hysterectomy, Orthopedic Surgery, Tonsillectomy Additional Past Surgical History / Comment(s): 2012 gastric sleeve, with hiatal hernia repair 11/2016 spinal fusion/decompression L4-L5 and S1, bilateral shoulder arthroscopies, 3 laparotomies d/t pain/ovarian cyst/adhesions, hysterectomy with R oophorectomy, 2 D&Cs after miscarriages, lipoma removed from left side of back, 2016 Cardiac cath-normal, colonoscopy, EGD's, trachea stent removed Past Anesthesia/Blood Transfusion Reactions: Motion Sickness, Postoperative Nausea & Vomiting (PONV) Additional Past Anesthesia/Blood Transfusion Reaction / Comment(s): difficult iv start Past Psychological History: Anxiety, Depression Smoking Status: Never smoker Past Alcohol Use History: Occasional Past Drug Use History: None Reported - Past Family History Father Family Medical History: Cancer, Diabetes Mellitus, Renal Disease Additional Family Medical History / Comment(s): Father is from kidney failure d/t diabetes. He at the age of 68yrs. Mother Family Medical History: Cancer, Congestive Heart Failure (CHF), Coronary Artery Disease (CAD), Diabetes Mellitus, Myocardial Infarction (OR), Thyroid Disorder Additional Family Medical History / Comment(s): Mother has had multiple MIs with first one at about age 72 yrs. She has had CABG and has 7 cardiac stents. She is in remision from uterine cancer and has osteoporosis. She is 81 yrs old, polymyalgia rheumatica . Medications and Allergies Home Medications Medication Instructions Recorded Confirmed Type Montelukast [Singulair] 10 mg PO DAILY 04/16/17 03/26/19 History Ferrous Sulfate [Iron (65 MG 325 mg PO DAILY 10/31/17 03/26/19 History Elemental)] Vitamin B Complex 1 cap PO DAILY 02/15/18 03/26/19 History Levalbuterol Tartrate [Xopenex Hfa 2 puff INHALATION RT-QID PRN #1 03/31/18 03/26/19 Rx Inhaler] hfa.aer.ad Albuterol Nebulized [Ventolin 2.5 mg INHALATION RT-QID PRN 08/23/18 03/26/19 History Nebulized] Budesonide [Pulmicort] 0.5 mg INHALATION RT-BID 08/23/18 03/26/19 History Cholecalciferol [Vitamin D3 (25 5,000 unit PO DAILY 08/23/18 03/26/19 History Mcg = 1000 Iu)] L.acidoph,Paracasei, B.lactis 1 cap PO DAILY 08/23/18 03/26/19 History [Probiotic] Multivitamins, Thera [Multivitamin 1 tab PO DAILY 08/23/18 03/26/19 History (formulary)] Omeprazole 40 mg PO BID 08/23/18 03/26/19 History Promethazine HCl [Phenergan Syrup] 12.5 mg PO HS PRN 08/23/18 03/26/19 History Venlafaxine HCl ER [Effexor XR] 75 mg PO DAILY 08/23/18 03/26/19 History Acetaminophen Tab [Tylenol] 500 mg PO BID PRN 09/26/18 03/26/19 History Calcium Polycarbophil [Fibercon] 625 mg PO DAILY PRN 09/26/18 03/26/19 History Isosorbide Mononitrate [Isosorbide 15 mg PO DAILY 09/26/18 03/26/19 History Mononitrate ER] Metoprolol Succinate (ER) [Toprol 25 mg PO DAILY 09/26/18 03/26/19 History XL] Sennosides [Senna] 17.2 mg PO DAILY PRN 09/26/18 03/26/19 History Acetylcysteine [Mucomyst] 800 mg INHALATION RT-DAILY 10/29/18 03/27/19 History Ipratropium-Albuterol Nebulize 3 ml INHALATION RT-BID 10/29/18 03/26/19 History [Duoneb 0.5 mg-3 mg/3 ml Soln] Naltrexone HCl/Bupropion HCl 2 tab PO BID 01/23/19 03/26/19 History [Contrave ER 8-90 mg Tablet] Triamterene/Hydrochlorothiazid 1 cap PO DAILY 01/23/19 03/26/19 History [Dyazide 37.5-25 Capsule] Biotin 5,000 mcg PO DAILY 03/26/19 03/26/19 History predniSONE 40 mg PO DAILY 03/26/19 03/26/19 History Allergies Allergy/AdvReac Type Severity Reaction Status Date / Time ciprofloxacin [From Cipro] Allergy Itching Verified 03/26/19 22:20 gluten Allergy Abdominal Verified 03/26/19 22:20 Pain/HEADACHES NSAIDS (Non-Steroidal AdvReac Abdominal Verified 03/26/19 22:20 Anti-Inflamma Pain shellfish derived [Shellfish] AdvReac Vomiting Verified 03/26/19 22:20 Physical Exam Vitals: Vital Signs Temp Pulse Pulse Resp BP BP Pulse Ox 03/27/19 09:06 22 03/27/19 07:54 92 20 142/89 96 03/27/19 07:40 94 23 03/27/19 07:14 90 23 03/27/19 04:00 97.5 F L 91 20 127/98 99 03/27/19 02:18 101 H 03/27/19 02:02 92 03/27/19 01:00 97.6 F 98 20 125/84 95 03/26/19 22:20 97.6 F 98 20 125/84 95 03/26/19 20:21 124 H 03/26/19 20:02 120 H 03/26/19 19:18 98.1 F 125 H 34 H 146/91 95 Intake and Output 03/26/19 03/27/19 03/27/19 22:59 06:59 14:59 Other: Voiding Method Toilet # Voids 1 Weight 86.183 kg General Appearance no diaphoresis, no respiratory distress, speech not interrupted by breaths, no dyspnea, no pallor, not cachectic, well nourished, appears well, obesity HEENT no pursed lip breathing, no jugular venous distention, no mucous membrane cyanosis, no perioral cyanosis, mallampati classification: class 1, Mallampati Classification: Class 4 Chest diminished breath sounds along with some expiratory wheezes heard throughout the lung luevano bilaterally. Scattered rhonchi. Active breath sounds are markedly diminished and the patient is unable to effectively breaths as her breathing is frequently interrupted by coughing Heart no right ventricular heave, no distant heart sounds, no s3 gallop, (normal) jugular vein: jugular venous distention: by 0cm, (normal) jugular vein GI Abdominal exam revealed normal bowel sounds. The abdomen was soft, non- tender, and without masses, organomegaly, or appreciable enlargement of the abdominal aorta. Extremities Examination of the extremities revealed easily palpable radial, femoral and pedal pulses. There was no cyanosis, clubbing or edema. Neurologic no decreased mental status, no somnolence, no confusion Assisstive Devices: ambulates with no assitive devices Gait and Mobility: gait WNL, full weight bearing Examination of the skin revealed no evidence of significant rashes, suspicious appearing nevi or other concerning lesions. Results - Laboratory Findings CBC and BMP: 03/26/19 20:09 03/26/19 20:09 ABG ABG pH 7.36 (7.35-7.45) 03/26/19 20:52 ABG pCO2 54 mmHg (35-45) H 03/26/19 20:52 ABG pO2 65 mmHg (83-108) L 03/26/19 20:52 ABG O2 Saturation 92.3 % (94-97) L 03/26/19 20:52 PT/INR, D-dimer PT 9.7 sec (9.0-12.0) 03/26/19 20:09 INR 0.9 (<1.2) 03/26/19 20:09 Abnormal lab findings: Abnormal Labs 03/26/19 03/26/19 03/26/19 20:09 20:09 20:52 WBC 13.1 H Neutrophils # 10.8 H ABG pCO2 54 H ABG pO2 65 L ABG HCO3 30 H ABG Total CO2 32 H ABG O2 Saturation 92.3 L Glucose 108 H Albumin 5.1 H Assessment and Plan Plan: 1 acute exacerbation of severe persistent bronchial asthma. The patient is actively bronchospastic and wheezy. No evidence of pneumonia. 2 severe tracheobronchomalacia previous insertion and removal of a Chary-en-Y stents. She is post bronchoscopy done in December 2018 showed no significant microbial growth. 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 3 obstructive sleep apnea maintained on APAP 4 Acid reflux 5 hypothyroidism 6 history of viral cardiomyopathy, recovered 7 vitamin D deficiency 8 iron deficiency 9 history of bariatric surgery him a post-gastric sleeve. 10 history of spinal stenosis Plan Agree on the current treatment. He is the CPAP from home preferably. Currently she is on BiPAP. Continue bronchodilators. Continue steroids. Sputum Gram stain and culture. Possible bronchoscopy at a later stage. She has a severe case of tracheobronchomalacia. She has failed and the bronchial stenting due to an infectious complications. She is losing weight for consultation of any surgical repair upper trachea later stage.
[2019-03-27 16:33] LABS: Glucose,Whole Blood 140 mg/dL (75-99)
--- NOTE | 2019-03-27 17:10 | P.PN ---
Subjective Progress Note Date: 03/27/19 Principal diagnosis: follow up for acute asthma exacerbation and tracheomalacia patient was seen and examined patient still having difficulty breathing but overall felt better compared to presentation , she has noisy breathing, but tolerating PO intake denies any chest pain , nausea or vomiting at this time she is hoping to lose weight to be eligible for surgical intervention for her tracheomalacia. Objective - Vital Signs Vital signs: Vital Signs Temp 98.1 F 03/27/19 15:11 Pulse 96 03/27/19 16:37 Resp 24 03/27/19 15:11 BP 137/89 03/27/19 15:11 Pulse Ox 92 L 03/27/19 15:11 Intake & Output 03/26/19 03/27/19 03/27/19 18:59 06:59 18:59 Weight 86.183 kg Other: Voiding Method Toilet Toilet # Voids 1 - Exam Constitutional: vital signs stable, Not in acute distress, pleasant, conversant , very noisy breathing, frequent coughing with deep breaths Lungs: Diminished breath sounds with diffuse expiratory wheezing, Cardiovascular: Regular rate and rhythm, no murmurs, no gallops, no rubs, no peripheral edema Gastrointestinal: Soft, no tenderness to palpation, bowel sounds positive, Psych: Alert, oriented to place, person and time, appropriate affect, intact judgment - Labs CBC & Chem 7: 03/26/19 20:09 03/26/19 20:09 Labs: Abnormal Lab Results - Last 24 Hours (Table) 03/26/19 03/26/19 03/26/19 Range/Units 20:09 20:09 20:52 WBC 13.1 H (3.8-10.6) k/uL Neutrophils # 10.8 H (1.3-7.7) k/uL ABG pCO2 54 H (35-45) mmHg ABG pO2 65 L (83-108) mmHg ABG HCO3 30 H (21-25) mmol/L ABG Total CO2 32 H (19-24) mmol/L ABG O2 Saturation 92.3 L (94-97) % Glucose 108 H (74-99) mg/dL POC Glucose (mg/dL) (75-99) mg/dL Albumin 5.1 H (3.5-5.0) g/dL 03/27/19 Range/Units 16:32 WBC (3.8-10.6) k/uL Neutrophils # (1.3-7.7) k/uL ABG pCO2 (35-45) mmHg ABG pO2 (83-108) mmHg ABG HCO3 (21-25) mmol/L ABG Total CO2 (19-24) mmol/L ABG O2 Saturation (94-97) % Glucose (74-99) mg/dL POC Glucose (mg/dL) 140 H (75-99) mg/dL Albumin (3.5-5.0) g/dL Assessment and Plan Assessment: 53-year-old female with long history of asthma however about a year ago she was diagnosed with tracheal bronchomalacia very severe case along with obstructive sleep apnea. She had a stent inserted for about 5-6 months however resulted in repeated infections for which ultimately it was removed. She reports that since it was removed her symptoms got worse with stridorous and frequent hospitaliz ation for asthma exacerbation. She follows up at [facility] and she was told that she could be a surgical candidate if she loses weight. Pulmonary reports that patient has interval enlargement of right paratracheal lymph nodes and development of subcarinal and posterior mediastinal soft tissue density suspicious for confluent no dullness and small bilateral perihilar lymph nodes for which the recommending CAT scan of the chest Also history of moderate severity obstructive sleep apnea patients treated with CPAP Plan: Acute on chronic hypoxic respiratory failure Acute exacerbation of asthma Severe tracheobronchomalacia status post removal of stent last year Obstructive sleep apnea on CPAP Pulmonary following Continue with Singulair, Mucomyst [place] treatments as needed Patient was started on systemic steroids Breathing treatments around the clock Currently on BiPAP as needed Supportive care Monitor vital signs closely Follow-up cultures Chronic conditions Hypothyroid Obesity Hypertension Continue home meds DVT prophylaxis heparin subcu 3 times a day Follow up labs Discontinue IV fluids Encourage by mouth intake Anticipated discharge in 48-72 hours
[2019-03-27] MEDS ORDERED: AZITHROMYCIN 500 MG in SODIUM CHLORIDE 0.9% 250 ML IVPB SCH (18:00)
[2019-03-27 20:01] LABS: Glucose,Whole Blood 214 mg/dL (75-99)
[2019-03-27] MEDS: INSULIN ASPART (NovoLOG) 100 UNIT/ML VIAL SQ SCH ×2 (20:44→20:52)
[2019-03-28] MEDS: PROMETHAZINE HCL 6.25 MG/5 ML CUP PO PRN ×2 (00:28→23:12)
[2019-03-28 06:22] LABS: Glucose,Whole Blood 180 mg/dL (75-99)
[2019-03-28] MEDS: INSULIN ASPART (NovoLOG) 100 UNIT/ML VIAL SQ SCH ×4 (06:38→20:56)
[2019-03-28] MEDS: methylPREDNISolone SOD SUCCI 125 MG/2 ML VIAL IV SCH ×4 (06:38→23:11)
[2019-03-28 06:48] LABS: Basophils % (A) 0 %; Eosinophils % (A) 0 %; HCT 34.9 % (34.0-46.0); Lymphocytes # (A) 0.9 k/uL (1.0-4.8); Lymphocytes % (A) 5 %; MCH 29.4 pg (25.0-35.0); MCHC 32.9 g/dL (31.0-37.0); MCV 89.4 fL (80.0-100.0); Mean Platelet Volume 8.8; Monocytes # (A) 0.3 k/uL (0-1.0); Monocytes % (A) 2 %; Neutrophils # (A) 15.8 k/uL (1.3-7.7); Neutrophils % (A) 93 %; Platelet Count 195 k/uL (150-450); RDW 14.4 % (11.5-15.5); WBC 17.1 k/uL (3.8-10.6)
[2019-03-28 06:49] LABS: HGB 11.5 gm/dL (11.4-16.0)
[2019-03-28 06:59] LABS: African American GFR (CKD) >90 (>60 ml/min/1.73 sqM); Anion Gap 10 mmol/L; Blood Urea Nitrogen 14 mg/dL (7-17); Calcium 9.3 mg/dL (8.4-10.2); Carbon Dioxide 26 mmol/L (22-30); Chloride 105 mmol/L (98-107); Glucose 148 mg/dL (74-99); Non-African American GFR(CKD) >90 (>60 ml/min/1.73 sqM); Potassium 3.7 mmol/L (3.5-5.1); Sodium 141 mmol/L (137-145)
[2019-03-28] MEDS: BUDESONIDE 0.5 MG/2 ML NEBU INHALATION SCH ×2 (08:10→20:20)
[2019-03-28] MEDS: ALBUTEROL NEBULIZED 2.5 MG/3 ML INHALATION PRN ×4 (08:10→20:20)
[2019-03-28] MEDS: ACETYLCYSTEINE 800 MG/4 ML VIAL INHALATION SCH (08:10)
[2019-03-28] MEDS: FERROUS SULFATE 325 MG TAB PO SCH (09:19)
[2019-03-28] MEDS: PANTOPRAZOLE 40 MG TABLET PO SCH ×2 (09:19→20:56)
[2019-03-28] MEDS: TRIAMTERENE-HCTZ 37.5-25MG 1 EACH CAP PO SCH (09:19)
[2019-03-28] MEDS: HEPARIN SODIUM,PORCINE 5,000 UNIT/ML 1 ML VIAL SQ SCH ×3 (09:19→23:11)
[2019-03-28] MEDS: MONTELUKAST 10 MG TAB PO SCH (09:19)
[2019-03-28] MEDS: METOPROLOL SUCCINATE (ER) 25 MG TAB.ER.24H PO SCH (09:19)
[2019-03-28] MEDS: ISOSORBIDE MONONITRATE ER 15 MG TAB PO SCH (09:20)
[2019-03-28 11:49] LABS: Glucose,Whole Blood 150 mg/dL (75-99)
--- NOTE | 2019-03-28 13:13 | P.PN ---
Subjective Progress Note Date: 03/28/19 On today's evaluation the patient is feeling slightly better compared to yesterday. Her coughing has subsided. The rattling from her upper airway is also improved compared to yesterday. She is using a BiPAP and she requested some higher pressure. I made some adjustments and I increased her BiPAP to a pressure 15/9 cm of water utilizing a full face mask. Her cough is improved. No symptoms of the sputum production. No fever. No chills. No chest pain. No nausea. No vomiting. No abdominal pain. No complaints otherwise for now. She is responding to antibiotics and systemic steroids. Objective - Vital Signs Vital signs: Vital Signs Temp 98 F 03/28/19 08:00 Pulse 77 03/28/19 12:00 Resp 16 03/28/19 12:00 BP 124/70 03/28/19 12:00 Pulse Ox 94 L 03/28/19 12:00 Intake & Output 03/27/19 03/28/19 03/28/19 18:59 06:59 18:59 Intake Total 240 240 Balance 240 240 Weight 89 kg Intake: Oral 240 240 Other: Voiding Method Toilet Toilet Toilet # Voids 1 - Exam General Appearance no diaphoresis, no respiratory distress, speech not i nterrupted by breaths, no dyspnea, no pallor, not cachectic, well nourished, appears well, obesity HEENT no pursed lip breathing, no jugular venous distention, no mucous membrane cyanosis, no perioral cyanosis, mallampati classification: class 1, Mallampati Classification: Class 4 Chest diminished breath sounds along with some expiratory wheezes heard throughout the lung luevano bilaterally. Scattered rhonchi. Active breath sounds are markedly diminished and the patient is unable to effectively breaths as her breathing is frequently interrupted by coughing Heart no right ventricular heave, no distant heart sounds, no s3 gallop, (normal) jugular vein: jugular venous distention: by 0cm, (normal) jugular vein GI Abdominal exam revealed normal bowel sounds. The abdomen was soft, non- tender, and without masses, organomegaly, or appreciable enlargement of the abdominal aorta. Extremities Examination of the extremities revealed easily palpable radial, femoral and pedal pulses. There was no cyanosis, clubbing or edema. Neurologic no decreased mental status, no somnolence, no confusion Assisstive Devices: ambulates with no assitive devices Gait and Mobility: gait WNL, full weight bearing Examination of the skin revealed no evidence of significant rashes, suspicious appearing nevi or other concerning lesions. - Labs CBC & Chem 7: 03/28/19 05:51 03/28/19 05:51 Labs: Abnormal Lab Results - Last 24 Hours (Table) 03/27/19 03/27/19 03/28/19 Range/Units 16:32 19:59 05:51 WBC 17.1 H (3.8-10.6) k/uL Neutrophils # 15.8 H (1.3-7.7) k/uL Lymphocytes # 0.9 L (1.0-4.8) k/uL Glucose (74-99) mg/dL POC Glucose (mg/dL) 140 H 214 H (75-99) mg/dL 03/28/19 03/28/19 03/28/19 Range/Units 05:51 06:21 11:47 WBC (3.8-10.6) k/uL Neutrophils # (1.3-7.7) k/uL Lymphocytes # (1.0-4.8) k/uL Glucose 148 H (74-99) mg/dL POC Glucose (mg/dL) 180 H 150 H (75-99) mg/dL Assessment and Plan Plan: 1 acute exacerbation of severe persistent bronchial asthma. The patient is actively bronchospastic and wheezy. No evidence of pneumonia. 2 severe tracheobronchomalacia previous insertion and removal of a Chary-en-Y stents. She is post bronchoscopy done in December 2018 showed no significant microbial growth. 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 3 obstructive sleep apnea maintained on APAP 4 Acid reflux 5 hypothyroidism 6 history of viral cardiomyopathy, recovered 7 vitamin D deficiency 8 iron deficiency 9 history of bariatric surgery him a post-gastric sleeve. 10 history of spinal stenosis Plan Continue the same treatment. Increase the BiPAP to include a pressure of 15/9 cm of water. Continue bronchodilators and steroids. We'll continue to follow. There is some improvement compared to yesterday.
[2019-03-28 13:54] LABS: Hemoglobin A1C 5.7 % (4.0-6.0)
--- NOTE | 2019-03-28 13:55 | P.PN ---
Subjective Progress Note Date: 03/28/19 Principal diagnosis: follow up for acute asthma exacerbation and tracheomalacia patient was seen and examined she feels better compared to yesterday, he noisy breathing is improved, she is very comfortable using the BIpap and is requesting higher pressure for the expiratory phase. reports one episode of yellowish sputum. denies any fever , chills, chest pain . tolerating PO intake , no nausea or vomiting. she requested to be started on her effexor that she takes at home Objective - Vital Signs Vital signs: Vital Signs Temp 98 F 03/28/19 08:00 Pulse 77 03/28/19 12:00 Resp 16 03/28/19 12:00 BP 124/70 03/28/19 12:00 Pulse Ox 94 L 03/28/19 12:00 Intake & Output 03/27/19 03/28/19 03/28/19 18:59 06:59 18:59 Intake Total 240 240 Balance 240 240 Weight 89 kg Intake: Oral 240 240 Other: Voiding Method Toilet Toilet Toilet # Voids 1 - Exam Constitutional: vital signs stable, Not in acute distress, pleasant, conversant , while using bipap, no audible rattling noise when breathing. no coughing today when she is talking Lungs: examined while wearing bipap, to help decrease the noises caused by her tracheomalacia. there is prolonged expiratory phase, with expiratory wheezing Cardiovascular: Regular rate and rhythm, no murmurs, no gallops, no rubs, no peripheral edema Gastrointestinal: Soft, no tenderness to palpation, bowel sounds positive, Psych: Alert, oriented to place, person and time, appropriate affect, intact judgment - Labs CBC & Chem 7: 03/28/19 05:51 03/28/19 05:51 Labs: Abnormal Lab Results - Last 24 Hours (Table) 03/27/19 03/27/19 03/28/19 Range/Units 16:32 19:59 05:51 WBC 17.1 H (3.8-10.6) k/uL Neutrophils # 15.8 H (1.3-7.7) k/uL Lymphocytes # 0.9 L (1.0-4.8) k/uL Glucose (74-99) mg/dL POC Glucose (mg/dL) 140 H 214 H (75-99) mg/dL 03/28/19 03/28/19 03/28/19 Range/Units 05:51 06:21 11:47 WBC (3.8-10.6) k/uL Neutrophils # (1.3-7.7) k/uL Lymphocytes # (1.0-4.8) k/uL Glucose 148 H (74-99) mg/dL POC Glucose (mg/dL) 180 H 150 H (75-99) mg/dL Assessment and Plan Assessment: 53-year-old female with long history of asthma however about a year ago she was diagnosed with tracheal bronchomalacia very severe case along with obstructive sleep apnea. She had a stent inserted for about 5-6 months however resulted in repeated infections for which ultimately it was removed. She reports that since it was removed her symptoms got worse with stridorous and frequent hospitalization for asthma exacerbation. She follows up at [facility] and she was told that she could be a surgical candidate if she loses weight. Pulmonary reports that patient has interval enlargement of right paratracheal lymph nodes and development of subcarinal and posterior mediastinal soft tissue density suspicious for confluent no dullness and small bilateral perihilar lymph nodes for which the recommending CAT scan of the chest Also history of moderate severity obstructive sleep apnea patients treated with CPAP 03/28 breathing improved with the current treatment . patient finds alot of comfort while using bipap pulmonary considering Bronch tomorrow recommending to continue current treatment with breathing treatments, antibiotics and IV systemic steroids Plan: Acute on chronic hypoxic respiratory failure Acute exacerbation of asthma Severe tracheobronchomalacia status post removal of stent last year Obstructive sleep apnea on CPAP Pulmonary following Continue with Singulair, Mucomyst, duonebs breathing treatments as needed continue with IV systemic steroids Breathing treatments around the clock Currently on BiPAP as needed Supportive care Monitor vital signs closely Follow-up cultures possible Bronch with pulmonary in AM Chronic conditions Hypothyroid Obesity Hypertension depression Continue home meds DVT prophylaxis heparin subcu 3 times a day leukocytosis increased, most likely 2/2 steroids, continue with antibiotics, no fevers Encourage by mouth intake plans for bronch in AM Anticipated discharge in 48-72 hours
[2019-03-28 16:51] LABS: Glucose,Whole Blood 105 mg/dL (75-99)
[2019-03-28] MEDS: SENNOSIDES-DOCUSATE SODIUM 1 EACH TAB PO SCH ×2 (17:53→20:59)
[2019-03-28] MEDS: VENLAFAXINE HCL ER 75 MG CAP PO SCH (17:54)
[2019-03-28] MEDS: AZITHROMYCIN 500 MG TAB PO SCH (17:57)
[2019-03-28 20:20] LABS: Glucose,Whole Blood 160 mg/dL (75-99)
[2019-03-29 05:49] LABS: Glucose,Whole Blood 128 mg/dL (75-99)
[2019-03-29] MEDS: INSULIN ASPART (NovoLOG) 100 UNIT/ML VIAL SQ SCH ×4 (06:19→20:42)
[2019-03-29] MEDS: methylPREDNISolone SOD SUCCI 125 MG/2 ML VIAL IV SCH ×4 (06:19→23:10)
[2019-03-29] MEDS: ACETYLCYSTEINE 800 MG/4 ML VIAL INHALATION SCH (07:48)
[2019-03-29] MEDS: BUDESONIDE 0.5 MG/2 ML NEBU INHALATION SCH (07:48)
[2019-03-29] MEDS: ALBUTEROL NEBULIZED 2.5 MG/3 ML INHALATION PRN ×4 (07:48→19:12)
[2019-03-29] MEDS: MONTELUKAST 10 MG TAB PO SCH (08:19)
[2019-03-29] MEDS: FERROUS SULFATE 325 MG TAB PO SCH (08:19)
[2019-03-29] MEDS: ISOSORBIDE MONONITRATE ER 15 MG TAB PO SCH (08:19)
[2019-03-29] MEDS: SENNOSIDES-DOCUSATE SODIUM 1 EACH TAB PO SCH ×2 (08:19→20:42)
[2019-03-29] MEDS: METOPROLOL SUCCINATE (ER) 25 MG TAB.ER.24H PO SCH (08:19)
[2019-03-29] MEDS: PANTOPRAZOLE 40 MG TABLET PO SCH ×2 (08:19→20:42)
[2019-03-29] MEDS: TRIAMTERENE-HCTZ 37.5-25MG 1 EACH CAP PO SCH (08:19)
[2019-03-29] MEDS: VENLAFAXINE HCL ER 75 MG CAP PO SCH (08:19)
[2019-03-29] MEDS: HEPARIN SODIUM,PORCINE 5,000 UNIT/ML 1 ML VIAL SQ SCH ×3 (08:20→23:10)
[2019-03-29] MEDS ORDERED: ONDANSETRON 4 MG/2 ML VIAL IVP PRN (09:26)
[2019-03-29] MEDS: guaiFENesin 600 MG TABLET.ER PO SCH ×2 (10:37→20:42)
--- NOTE | 2019-03-29 10:44 | P.PN ---
Subjective Progress Note Date: 03/29/19 Principal diagnosis: shortness of breath Patient is a 53-year-old female with severe persistent bronchial asthma and severe tracheobronchial malacia with history of tracheal stent removed, chronic hypoxic respiratory failure on 3-4 L nasal cannula, and morbid obesity who presented to the emergency department with complaints of worsening shortness of breath and cough. She underwent an extensive evaluation in the ER. Her initial vital signs showed tachycardia with a rate of 125 and tachypnea with a rate of 34. Initial laboratory analysis showed an elevated white blood cell count at 13.4, initial ABG showed a CO2 of 54, O2 65, influenza was negative. Chest x-ray showed no acute process. She was started on steroids, bronchodilators, Rocephin and Zithromax and admitted for acute exacerbation of asthma as well as acute purulent tracheal bronchitis. Pulmonary was consulted who agreed with current management. She intermittently required her CPAP. She continued to improve slowly. Pulmonary was considering bronchoscopy. Patient seen and examined at bedside. She reports she is still significantly short of breath but is feeling better, having more productive cough, having some nausea but no vomiting, having some constipation. No exquisite chest tende rness. Objective - Vital Signs Vital signs: Vital Signs Temp 96.8 F L 03/29/19 08:10 Pulse 72 03/29/19 08:21 Resp 19 03/29/19 08:10 BP 108/61 03/29/19 08:10 Pulse Ox 96 03/29/19 08:10 Intake & Output 03/28/19 03/29/19 03/29/19 18:59 06:59 18:59 Intake Total 840 240 Balance 840 240 Weight 88.5 kg Intake: Oral 840 240 Other: Voiding Method Toilet Toilet # Voids 2 3 # Bowel Movements 0 - Exam General: Ill-appearing, no distress, appears at stated age, obese Derm: warm, dry Head: atraumatic, normocephalic, symmetric Eyes: EOMI, no lid lag, anicteric sclera Mouth: no lip lesion, mucus membranes dry Cardiovascular: S1S2 reg, no murmur, positive posterior tibial pulse bilateral, Lungs: [decreased bs bilateral, + ronchi, no wheeze, no accessory muscle use, 2 word conversation, dyspnea Abdominal: soft, nontender to palpation, no guarding, no appreciable organomegaly Ext: no gross muscle atrophy, no edema, no contractures Neuro: CN II-XI grossly intact, no focal neuro deficits Psych: Alert, oriented, appropriate affect - Labs CBC & Chem 7: 03/28/19 05:51 03/28/19 05:51 Labs: Abnormal Lab Results - Last 24 Hours (Table) 03/28/19 03/28/19 03/28/19 Range/Units 11:47 16:49 20:18 POC Glucose (mg/dL) 150 H 105 H 160 H (75-99) mg/dL 03/29/19 Range/Units 05:48 POC Glucose (mg/dL) 128 H (75-99) mg/dL Assessment and Plan Assessment: Acute exacerbation of asthma with Severe tracheobronchomalacia status post removal of stent, and possible acute bronchitis Acute on chronic hypoxic respiratory failure, acute resolved - continue with bronchodilators, steroids, antibiotics, mucomyst - pulm hygeine, add mucinex - pulm recs appreciated - leukocytosis likely due to steroids, once stable or improved will attempt to lessen abx Obstructive sleep apnea on CPAP - CPAP at night and with naps Morbid obesity - structured outpatient weight loss Constipation - bowel regiment Chronic conditions: Constipation Hypertension Continue home meds DVT prophylaxis: heparin Discussed with: patient, nursing Anticipated discharge: 1-[address]: home A total of 35 minutes was spent on the care of this complex patient more than 50% of the time was spent in counseling and care coordination.
--- NOTE | 2019-03-29 10:47 | P.PN ---
Subjective Progress Note Date: 03/29/19 The patient was seen today 03/29/2019 in follow-up on the selective care unit. She is currently sitting up in bed. Awake and alert in no acute distress. Still with a loose mostly nonproductive cough. Having trouble expectorating. Feeling a bit better but still not back to her baseline. Maintaining O2 saturations in the 90s on 3 L/m per nasal cannula. She slept well last night. Dr. Johnson had adjusted her BiPAP settings to 10/11 yesterday. Objective - Vital Signs Vital signs: Vital Signs Temp 96.8 F L 03/29/19 08:10 Pulse 72 03/29/19 08:21 Resp 19 03/29/19 08:10 BP 108/61 03/29/19 08:10 Pulse Ox 96 03/29/19 08:10 Intake & Output 03/28/19 03/29/19 03/29/19 18:59 06:59 18:59 Intake Total 840 240 Balance 840 240 Weight 88.5 kg Intake: Oral 840 240 Other: Voiding Method Toilet Toilet # Voids 2 3 # Bowel Movements 0 - Exam General Appearance Alert pleasant 53-year-old female patient, no diaphoresis, no respiratory distress, speech not interrupted by breaths, no dyspnea, no pallor, not cachectic, well nourished, appears well, obesity HEENT no pursed lip breathing, no jugular venous distention, no mucous membrane cyanosis, no perioral cyanosis, mallampati classification: class 1, Mallampati Classification: Class 4 Chest diminished breath sounds along with some expiratory wheezes heard throughout the lung luevano bilaterally. Scattered rhonchi. Heart no right ventricular heave, no distant heart sounds, no s3 gallop, (normal) jugular vein: jugular venous distention: by 0cm, (normal) jugular vein GI Abdominal exam revealed normal bowel sounds. The abdomen was soft, non- tender, and without masses, organomegaly, or appreciable enlargement of the abdominal aorta. Extremities Examination of the extremities revealed easily palpable radial, femoral and pedal pulses. There was no cyanosis, clubbing or edema. Neurologic no decreased mental status, no somnolence, no confusion Assisstive Devices: ambulates with no assitive devices Gait and Mobility: gait WNL, full weight bearing Examination of the skin revealed no evidence of significant rashes, suspicious appearing nevi or other concerning lesions. - Labs CBC & Chem 7: 03/28/19 05:51 03/28/19 05:51 Labs: Abnormal Lab Results - Last 24 Hours (Table) 03/28/19 03/28/19 03/28/19 Range/Units 11:47 16:49 20:18 POC Glucose (mg/dL) 150 H 105 H 160 H (75-99) mg/dL 03/29/19 Range/Units 05:48 POC Glucose (mg/dL) 128 H (75-99) mg/dL Assessment and Plan Assessment: 1 acute exacerbation of severe persistent bronchial asthma. The patient is actively bronchospastic and wheezy. No evidence of pneumonia. 2 severe tracheobronchomalacia previous insertion and removal of a Chary-en-Y stents. She is post bronchoscopy done in December 2018 showed no significant microbial growth. 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 3 obstructive sleep apnea maintained on APAP 4 Acid reflux 5 hypothyroidism 6 history of viral cardiomyopathy, recovered 7 vitamin D deficiency 8 iron deficiency 9 history of bariatric surgery him a post-gastric sleeve. 10 history of spinal stenosis Plan The patient was seen and evaluated by Dr. Johnson. She is improved today compared to yesterday. Still not back to her baseline. We'll give her another 24 hours. If no great improvement we'll plan for bronchoscopy with BAL on Sun. We'll continue the current treatment plan. We'll continue to follow. I, the cosigning physician, performed a history & physical examination of the patient. Lungs sounds with bilateral end expiratory wheeze, few scattered rhonchi. Maintaining good O2 saturations in the 90s on 3 L/m per nasal cannula. I discussed the assessment and plan of care with my nurse practitioner, Edda Christensen. I attest to the above note as dictated by her.
[2019-03-29 11:38] LABS: Glucose,Whole Blood 114 mg/dL (75-99)
[2019-03-29 16:35] LABS: Glucose,Whole Blood 134 mg/dL (75-99)
[2019-03-29] MEDS: AZITHROMYCIN 500 MG TAB PO SCH (17:38)
[2019-03-29] MEDS: BUDESONIDE 1 MG/2 ML NEBU INHALATION SCH (19:12)
[2019-03-29 20:29] LABS: Glucose,Whole Blood 142 mg/dL (75-99)
[2019-03-29] MEDS: PROMETHAZINE HCL 6.25 MG/5 ML CUP PO PRN (23:10)
[2019-03-30] MEDS: ALBUTEROL NEBULIZED 2.5 MG/3 ML INHALATION PRN ×6 (05:27→23:19)
[2019-03-30] MEDS: BUDESONIDE 1 MG/2 ML NEBU INHALATION SCH ×2 (05:27→19:43)
[2019-03-30] MEDS: ACETYLCYSTEINE 800 MG/4 ML VIAL INHALATION SCH (05:27)
[2019-03-30 06:20] LABS: Glucose,Whole Blood 162 mg/dL (75-99)
[2019-03-30 06:23] LABS: HCT 36.8 % (34.0-46.0); MCH 28.9 pg (25.0-35.0); MCHC 32.7 g/dL (31.0-37.0); MCV 88.5 fL (80.0-100.0); Mean Platelet Volume 8.6; Platelet Count 208 k/uL (150-450); RBC 4.16 m/uL (3.80-5.40); RDW 14.6 % (11.5-15.5); WBC 13.9 k/uL (3.8-10.6)
[2019-03-30 06:33] LABS: African American GFR (CKD) >90 (>60 ml/min/1.73 sqM); Anion Gap 8 mmol/L; Blood Urea Nitrogen 24 mg/dL (7-17); Calcium 9.3 mg/dL (8.4-10.2); Carbon Dioxide 30 mmol/L (22-30); Chloride 103 mmol/L (98-107); Glucose 132 mg/dL (74-99); Non-African American GFR(CKD) >90 (>60 ml/min/1.73 sqM); Potassium 3.9 mmol/L (3.5-5.1); Sodium 141 mmol/L (137-145)
[2019-03-30] MEDS: INSULIN ASPART (NovoLOG) 100 UNIT/ML VIAL SQ SCH ×4 (06:53→20:16)
[2019-03-30] MEDS: methylPREDNISolone SOD SUCCI 125 MG/2 ML VIAL IV SCH ×4 (06:54→22:50)
[2019-03-30] MEDS: MONTELUKAST 10 MG TAB PO SCH (08:11)
[2019-03-30] MEDS: SENNOSIDES-DOCUSATE SODIUM 1 EACH TAB PO SCH ×2 (08:11→20:16)
[2019-03-30] MEDS: PANTOPRAZOLE 40 MG TABLET PO SCH ×2 (08:11→20:16)
[2019-03-30] MEDS: METOPROLOL SUCCINATE (ER) 25 MG TAB.ER.24H PO SCH (08:11)
[2019-03-30] MEDS: guaiFENesin 600 MG TABLET.ER PO SCH ×2 (08:11→20:16)
[2019-03-30] MEDS: FERROUS SULFATE 325 MG TAB PO SCH (08:11)
[2019-03-30] MEDS: VENLAFAXINE HCL ER 75 MG CAP PO SCH (08:12)
[2019-03-30] MEDS: ISOSORBIDE MONONITRATE ER 15 MG TAB PO SCH (08:12)
[2019-03-30] MEDS: TRIAMTERENE-HCTZ 37.5-25MG 1 EACH CAP PO SCH (08:12)
[2019-03-30] MEDS: HEPARIN SODIUM,PORCINE 5,000 UNIT/ML 1 ML VIAL SQ SCH ×3 (08:40→22:50)
[2019-03-30] MEDS ORDERED: POLYETHYLENE GLYCOL 3350 17 GM POWD.PACK PO STA (08:57)
--- NOTE | 2019-03-30 09:20 | P.PN ---
Subjective Progress Note Date: 03/30/19 Principal diagnosis: shortness of breath Patient is a 53-year-old female with severe persistent bronchial asthma and severe tracheobronchial malacia with history of tracheal stent s/p removal, chronic hypoxic respiratory failure on 3-4 L nasal cannula, and morbid obesity who presented to the emergency department with complaints of worsening shortness of breath and cough. She underwent an extensive evaluation in the ER. Her initial vital signs showed tachycardia with a rate of 125 and tachypnea with a rate of 34. Initial laboratory analysis showed an elevated white blood cell count at 13.4, initial ABG showed a CO2 of 54, O2 65, influenza was negative. Chest x-ray showed no acute process. She was started on steroids, bronchodilators, Rocephin and Zithromax and admitted for acute exacerbation of asthma as well as acute purulent tracheobronchitis. Pulmonary was consulted who agreed with current management. She intermittently required her CPAP. She con tinued to improve slowly. She WBC initially increased and then decreased. Pulmonary considering bronchoscopy 03/31/19 Patient seen and examined at bedside. She reports that her breathing is slightly worse today than yesterday. No improvement. Continues to have a cough. Feels as though she is having more rattling in her chest. No nausea or vomiting. Had a small bowel movement but still feels constipated. Would like to add MiraLAX. Objective - Vital Signs Vital signs: Vital Signs Temp 97.7 F 03/30/19 08:00 Pulse 86 03/30/19 08:00 Resp 18 03/30/19 08:00 BP 132/70 03/30/19 08:00 Pulse Ox 92 L 03/30/19 08:00 Intake & Output 03/29/19 03/30/19 03/30/19 18:59 06:59 18:59 Intake Total 480 480 Balance 480 480 Weight 88.6 kg Intake: Oral 480 480 Other: Voiding Method Toilet # Voids 2 1 - Exam General: ill appearing, no distress, appears at stated age Derm: + facial flushing, warm, dry Head: atraumatic, normocephalic, symmetric Eyes: EOMI, no lid lag, anicteric sclera Mouth: no lip lesion, mucus membranes moist Cardiovascular: S1S2 reg, no murmur, positive posterior tibial pulse bilateral, Lungs: diffuse ronchi throughout , no accessory muscle use, 3 word conversational dyspnea Abdominal: soft, nontender to palpation, no guarding, no appreciable organomegaly Ext: no gross muscle atrophy, no edema, no contractures Neuro: CN II-XI grossly intact, no focal neuro deficits Psych: Alert, oriented, appropriate affect - Labs CBC & Chem 7: 03/30/19 05:39 03/30/19 05:39 Labs: Abnormal Lab Results - Last 24 Hours (Table) 03/29/19 03/29/19 03/29/19 Range/Units 11:37 16:34 20:27 WBC (3.8-10.6) k/uL BUN (7-17) mg/dL Glucose (74-99) mg/dL POC Glucose (mg/dL) 114 H 134 H 142 H (75-99) mg/dL 03/30/19 03/30/19 03/30/19 Range/Units 05:39 05:39 06:13 WBC 13.9 H (3.8-10.6) k/uL BUN 24 H (7-17) mg/dL Glucose 132 H (74-99) mg/dL POC Glucose (mg/dL) 162 H (75-99) mg/dL Assessment and Plan Assessment: Acute exacerbation of asthma with Severe tracheobronchomalacia status post removal of stent, and possible acute bronchitis Acute on chronic hypoxic respiratory failure, acute resolved - continue with bronchodilators, steroids, antibiotics, mucomyst - pulm hygeine, add mucinex - pulm recs appreciated possible bronch in AM - leukocytosis likely due to steroids and improving Obstructive sleep apnea on CPAP - CPAP at night and with naps Morbid obesity - structured outpatient weight loss Constipation - senna, add miralax X 1 Chronic conditions: Constipation Hypertension Continue home meds DVT prophylaxis: heparin Discussed with: patient, nursing Anticipated discharge: 1-[address]: home A total of 25 minutes was spent on the care of this complex patient more than 50% of the time was spent in counseling and care coordination.
[2019-03-30] MEDS: CALCIUM CARBONATE 500 MG CHEWABLE PO PRN (09:52)
[2019-03-30 11:41] LABS: Glucose,Whole Blood 141 mg/dL (75-99)
--- NOTE | 2019-03-30 13:00 | P.PN ---
Subjective Progress Note Date: 03/30/19 The patient was seen today 03/29/2019 in follow-up on the selective care unit. She is currently sitting up in bed. Awake and alert in no acute distress. Still with a loose mostly nonproductive cough. Having trouble expectorating. Feeling a bit better but still not back to her baseline. Maintaining O2 saturations in the 90s on 3 L/m per nasal cannula. She slept well last night. Dr. Johnson had adjusted her BiPAP settings to 15/9 yesterday. The patient is seen today 03/30/2019 in follow-up on the selective care unit. She is awake and alert in no acute distress. She continues with a loose non productive cough. Continues with some dyspnea on exertion. Not quite back to her baseline. We will add a flutter valve. She is maintaining good O2 saturations in the 90s on 3 L/m per nasal cannula. He is afebrile. Hemodynamically stable. She is continued on IV Solu-Medrol, bronchodilators, Singulair, ceftriaxone and azithromycin. Objective - Vital Signs Vital signs: Vital Signs Temp 97.7 F 03/30/19 08:00 Pulse 64 03/30/19 12:00 Resp 17 03/30/19 12:00 BP 112/63 03/30/19 12:00 Pulse Ox 97 03/30/19 12:00 Intake & Output 03/29/19 03/30/19 03/30/19 18:59 06:59 18:59 Intake Total 480 480 Balance 480 480 Weight 88.6 kg Intake: Oral 480 480 Other: Voiding Method Toilet # Voids 2 1 - Exam General Appearance Alert pleasant 53-year-old female patient, no respiratory distress, no dyspnea, well nourished, appears well, obesity HEENT no pursed lip breathing, no jugular venous distention, no mucous membrane cyanosis, no perioral cyanosis, mallampati classification: class 1, Mallampati Classification: Class 4 Chest diminished breath sounds along with some expiratory wheezes heard throughout the lung luevano bilaterally. Scattered rhonchi. Heart no right ventricular heave, no distant heart sounds, no s3 gallop, (normal) jugular vein: jugular venous distention: by 0cm, (normal) jugular vein GI Abdominal exam revealed normal bowel sounds. The abdomen was soft, non- tender, and without masses, organomegaly, or appreciable enlargement of the abdominal aorta. Extremities Examination of the extremities revealed easily palpable radial, femoral and pedal pulses. There was no cyanosis, clubbing or edema. Neurologic no decreased mental status, no somnolence, no confusion Assisstive Devices: ambulates with no assitive devices Gait and Mobility: gait WNL, full weight bearing Examination of the skin revealed no evidence of significant rashes, suspicious appearing nevi or other concerning lesions. - Labs CBC & Chem 7: 03/30/19 05:39 03/30/19 05:39 Labs: Abnormal Lab Results - Last 24 Hours (Table) 03/29/19 03/29/19 03/30/19 Range/Units 16:34 20:27 05:39 WBC (3.8-10.6) k/uL BUN 24 H (7-17) mg/dL Glucose 132 H (74-99) mg/dL POC Glucose (mg/dL) 134 H 142 H (75-99) mg/dL 03/30/19 03/30/19 03/30/19 Range/Units 05:39 06:13 11:32 WBC 13.9 H (3.8-10.6) k/uL BUN (7-17) mg/dL Glucose (74-99) mg/dL POC Glucose (mg/dL) 162 H 141 H (75-99) mg/dL Assessment and Plan Assessment: 1 acute exacerbation of severe persistent bronchial asthma. The patient is actively bronchospastic and wheezy. No evidence of pneumonia. 2 severe tracheobronchomalacia previous insertion and removal of a Chary-en-Y stents. She is post bronchoscopy done in December 2018 showed no significant microbial growth. 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 3 obstructive sleep apnea maintained on APAP 4 Acid reflux 5 hypothyroidism 6 history of viral cardiomyopathy, recovered 7 vitamin D deficiency 8 iron deficiency 9 history of bariatric surgery him a post-gastric sleeve. 10 history of spinal stenosis Plan The patient was seen and evaluated by Dr. Johnson. Still not back to her baseline. Add flutter valve. If no great improvement we'll plan for bronchoscopy with BAL early this week. We'll continue the current treatment plan. We'll continue to follow. I, the cosigning physician, performed a history & physical examination of the patient. Lungs sounds with bilateral end expiratory wheeze, few scattered rhonchi. Maintaining good O2 saturations in the 90s on 3 L/m per nasal cannula. I discussed the assessment and plan of care with my nurse practitioner, Edda Christensen. I attest to the above note as dictated by her.
[2019-03-30] MEDS: AZITHROMYCIN 500 MG TAB PO SCH (17:00)
[2019-03-30 17:12] LABS: Glucose,Whole Blood 106 mg/dL (75-99)
[2019-03-30 19:59] LABS: Glucose,Whole Blood 223 mg/dL (75-99)
[2019-03-30] MEDS: PROMETHAZINE HCL 6.25 MG/5 ML CUP PO PRN (22:51)
[2019-03-31 06:12] LABS: Glucose,Whole Blood 140 mg/dL (75-99)
[2019-03-31] MEDS: methylPREDNISolone SOD SUCCI 125 MG/2 ML VIAL IV SCH ×3 (06:22→17:06)
[2019-03-31] MEDS: INSULIN ASPART (NovoLOG) 100 UNIT/ML VIAL SQ SCH ×4 (06:22→20:17)
[2019-03-31] MEDS: BUDESONIDE 1 MG/2 ML NEBU INHALATION SCH ×2 (08:02→19:42)
[2019-03-31] MEDS: ALBUTEROL NEBULIZED 2.5 MG/3 ML INHALATION PRN ×4 (08:02→19:41)
[2019-03-31] MEDS: ACETYLCYSTEINE 800 MG/4 ML VIAL INHALATION SCH (08:02)
[2019-03-31] MEDS: FERROUS SULFATE 325 MG TAB PO SCH (08:26)
[2019-03-31] MEDS: MONTELUKAST 10 MG TAB PO SCH (08:26)
[2019-03-31] MEDS: SENNOSIDES-DOCUSATE SODIUM 1 EACH TAB PO SCH ×2 (08:26→20:20)
[2019-03-31] MEDS: HEPARIN SODIUM,PORCINE 5,000 UNIT/ML 1 ML VIAL SQ SCH ×2 (08:27→17:06)
[2019-03-31] MEDS: guaiFENesin 600 MG TABLET.ER PO SCH ×2 (08:27→20:15)
[2019-03-31] MEDS: METOPROLOL SUCCINATE (ER) 25 MG TAB.ER.24H PO SCH (08:27)
[2019-03-31] MEDS: PANTOPRAZOLE 40 MG TABLET PO SCH ×2 (08:27→20:16)
[2019-03-31] MEDS: TRIAMTERENE-HCTZ 37.5-25MG 1 EACH CAP PO SCH (08:37)
[2019-03-31] MEDS: VENLAFAXINE HCL ER 75 MG CAP PO SCH (08:37)
[2019-03-31] MEDS: ISOSORBIDE MONONITRATE ER 15 MG TAB PO SCH (08:37)
[2019-03-31 09:35] LABS: % Iron Saturation 40.93 (12.00-45.00); Iron 106 ug/dL (50-170); Total Iron Binding Capacity 259 ug/dL (228-460)
[2019-03-31 09:43] LABS: Ferritin 111.4 ng/mL (10.0-291.0)
[2019-03-31] MEDS ORDERED: PROMETHAZINE HCL 6.25 MG/5 ML CUP PO PRN (09:46)
[2019-03-31 11:56] LABS: Glucose,Whole Blood 133 mg/dL (75-99)
--- NOTE | 2019-03-31 12:47 | P.PN ---
Subjective Progress Note Date: 03/31/19 Principal diagnosis: Acute exacerbation of severe persistent bronchial asthma, in a patient with severe tracheobronchomalacia The patient was seen today 03/29/2019 in follow-up on the selective care unit. She is currently sitting up in bed. Awake and alert in no acute distress. Still with a loose mostly nonproductive cough. Having trouble expectorating. Feeling a bit better but still not back to her baseline. Maintaining O2 saturations in the 90s on 3 L/m per nasal cannula. She slept well last night. Dr. Johnson had adjusted her BiPAP settings to 15/9 yesterday. The patient is seen today 03/30/2019 in follow-up on the selective care unit. She is awake and alert in no acute distress. She continues with a loose nonproductive cough. Continues with some dyspnea on exertion. Not quite back to her baseline. We will add a flutter valve. She is maintaining good O2 saturations in the 90s on 3 L/m per nasal cannula. He is afebrile. Hemodynamically stable. She is continued on IV Solu-Medrol, bronchodilators, Singulair, ceftriaxone and azithromycin. On 02/28/2019 patient seen in follow-up on selective care unit, still coughing, still dyspneic on exertion, she states there has been only limited improvement in her breathing since she came in, [place] liters of oxygen with a pulse ox 93%, she's been afebrile, hemodynamically stable, Zithromax and Rocephin for antibiotic coverage, brain treatments and IV steroids, Mucomyst has been added. Patient has been nothing by mouth after midnight, for a bronchoscopy with BAL today with Dr. Hager Objective - Vital Signs Vital signs: Vital Signs Temp 97.9 F 03/31/19 11:44 Pulse 88 03/31/19 11:44 Resp 18 03/31/19 11:44 BP 139/84 03/31/19 11:44 Pulse Ox 93 L 03/31/19 11:44 Intake & Output 03/30/19 03/31/19 03/31/19 18:59 06:59 18:59 Intake Total 960 100 Balance 960 100 Weight 88.2 kg Intake: Intake, IV Titration 50 Amount cefTRIAXone 1 gm In 50 Sodium Chloride 0.9% 50 ml @ 100 mls/hr IVPB Q24HR [facility] Rx#:[id number] Oral 960 50 Other: Voiding Method Toilet Toilet Toilet # Voids 2 1 1 - Exam General Appearance Alert pleasant 53-year-old female patient, no respiratory distress, no dyspnea, well nourished, appears well, obesity HEENT no pursed lip breathing, no jugular venous distention, no mucous membrane cyanosis, no perioral cyanosis, mallampati classification: class 1, Mallampati Classification: Class 4 Chest diminished breath sounds along with some expiratory wheezes heard throughout the lung luevano bilaterally. Scattered rhonchi. Heart no right ventricular heave, no distant heart sounds, no s3 gallop, (normal) jugular vein: jugular venous distention: by 0cm, (normal) jugular vein GI Abdominal exam revealed normal bowel sounds. The abdomen was soft, non- tender, and without masses, organomegaly, or appreciable enlargement of the abdominal aorta. Extremities Examination of the extremities revealed easily palpable radial, femoral and pedal pulses. There was no cyanosis, clubbing or edema. Neurologic no decreased mental status, no somnolence, no confusion Assisstive Devices: ambulates with no assitive devices Gait and Mobility: gait WNL, full weight bearing Examination of the skin revealed no evidence of significant rashes, suspicious appearing nevi or other concerning lesions. - Labs CBC & Chem 7: 03/30/19 05:39 03/30/19 05:39 Labs: Abnormal Lab Results - Last 24 Hours (Table) 03/30/19 03/30/19 03/31/19 Range/Units 17:01 19:57 06:10 POC Glucose (mg/dL) 106 H 223 H 140 H (75-99) mg/dL 03/31/19 Range/Units 11:45 POC Glucose (mg/dL) 133 H (75-99) mg/dL Assessment and Plan Plan: Assessment: 1 acute exacerbation of severe persistent bronchial asthma. The patient is actively bronchospastic and wheezy. No evidence of pneumonia. 2 severe tracheobronchomalacia previous insertion and removal of a Chary-en-Y stents. She is post bronchoscopy done in December 2018 showed no significant microbial growth. 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 3 obstructive sleep apnea maintained on APAP 4 Acid reflux 5 hypothyroidism 6 history of viral cardiomyopathy, recovered 7 vitamin D deficiency 8 iron deficiency 9 history of bariatric surgery him a post-gastric sleeve. 10 history of spinal stenosis Plan: Continue same antibiotics, breathing treatments and IV steroids, patient has been a pO2 midnight for bronchoscopy with BAL this afternoon with Dr. Hager. She is agreeable to proceed. We'll follow I performed a history & physical examination of the patient and discussed their management with my nurse practitioner, Amanda Stover. I reviewed the nurse practitioner's note and agree with the documented findings and plan of care. Lung sounds are positive for diffuse rhonchi. The findings and the impression was discussed with the patient. I attest to the documentation by the nurse practitioner. Time with Patient: Less than 30
[2019-03-31] MEDS ORDERED: KETAMINE 10 MG/ML 20 ML VIAL ONE (13:00)
[2019-03-31] MEDS ORDERED: GLYCOPYRROLATE 0.2 MG/ML 2 ML VIAL ONE (13:00)
[2019-03-31] MEDS ORDERED: PROPOFOL 10 MG/ML 20 ML VIAL IV ONE (13:00)
[2019-03-31] MEDS ORDERED: MIDAZOLAM 2 MG/2 ML VIAL ONE (13:00)
[2019-03-31] MEDS ORDERED: LIDOCAINE 1% INJ 10MG/ML (20 ML MDV) ONE (13:00)
[2019-03-31] MEDS ORDERED: SODIUM CHLORIDE 0.9% 500 ML IV ONE (13:01)
[2019-03-31] MEDS ORDERED: LIDOCAINE 2% INJ 20 MG/ML INTRATRACH ONE ×2 (13:11→13:20)
--- NOTE | 2019-03-31 15:55 | P.PN ---
Subjective Progress Note Date: 03/31/19 (delayed charting seen at 1100) Principal diagnosis: shortness of breath Patient is a 53-year-old female with severe persistent bronchial asthma and severe tracheobronchial malacia with history of tracheal stent s/p removal, chronic hypoxic respiratory failure on 3-4 L nasal cannula, and morbid obesity who presented to the emergency department with complaints of worsening shortness of breath and cough. She underwent an extensive evaluation in the ER. Her initial vital signs showed tachycardia with a rate of 125 and tachypnea with a rate of 34. Initial laboratory analysis showed an elevated white blood cell count at 13.4, initial ABG showed a CO2 of 54, O2 65, influenza was negative. Chest x-ray showed no acute process. She was started on steroids, bronchodilators, Rocephin and Zithromax and admitted for acute exacerbation of asthma as well as acute purulent tracheobronchitis. Pulmonary was consulted who agreed with current management. She intermittently required her CPAP. She continued to improve slowly. She WBC initially increased and then decreased. Pulmonary considering bronchoscopy 03/31/19 Patient seen and examined at bedside. Still not feeling well, feels like she cant cough anything up, no nausea, no vomiting, no diarrhea. Objective - Vital Signs Vital signs: Vital Signs Temp 98.6 F 03/31/19 15:25 Pulse 75 03/31/19 15:35 Resp 20 03/31/19 15:25 BP 130/72 03/31/19 15:25 Pulse Ox 93 L 03/31/19 15:25 Intake & Output 03/30/19 03/31/19 03/31/19 18:59 06:59 18:59 Intake Total 960 300 Balance 960 300 Weight 88.2 kg Intake: IV 200 Intake, IV Titration 50 Amount cefTRIAXone 1 gm In 50 Sodium Chloride 0.9% 50 ml @ 100 mls/hr IVPB Q24HR [facility] Rx#:[id number] Oral 960 50 Other: Voiding Method Toilet Toilet Toilet # Voids 2 1 0 - Exam General: ill appearing, no distress, appears at stated age Derm: warm, dry Head: atraumatic, normocephalic, symmetric Eyes: EOMI, no lid lag, anicteric sclera Mouth: no lip lesion, mucus membranes moist Cardiovascular: S1S2 reg, no murmur, positive posterior tibial pulse bilateral, Lungs: diffuse ronchi throughout , no accessory muscle use, Abdominal: soft, nontender to palpation, no guarding, no appreciable organomegaly Ext: no gross muscle atrophy, no edema, no contractures Neuro: CN II-XI grossly intact, no focal neuro deficits Psych: Alert, oriented, appropriate affect - Labs CBC & Chem 7: 03/30/19 05:39 03/30/19 05:39 Labs: Abnormal Lab Results - Last 24 Hours (Table) 03/30/19 03/30/19 03/31/19 Range/Units 17:01 19:57 06:10 POC Glucose (mg/dL) 106 H 223 H 140 H (75-99) mg/dL 03/31/19 Range/Units 11:45 POC Glucose (mg/dL) 133 H (75-99) mg/dL Assessment and Plan Assessment: Acute exacerbation of asthma with Severe tracheobronchomalacia status post removal of stent, and possible acute bronchitis Acute on chronic hypoxic respiratory failure, acute resolved - continue with bronchodilators, steroids, antibiotics, mucomyst - pulm hygiene, mucinex - pulm recs appreciated bronch today - leukocytosis likely due to steroids and improving Obstructive sleep apnea on CPAP - CPAP at night and with naps Morbid obesity - structured outpatient weight loss Constipation - senna, miralax X 1 2/2 Chronic conditions: GERD Hypertension DVT prophylaxis: heparin Discussed with: patient, nursing Anticipated discharge: 1-[address]: home A total of 25 minutes was spent on the care of this complex patient more than 50% of the time was spent in counseling and care coordination.
[2019-03-31 16:52] LABS: Appearance,BF Cloudy; Color,BF Colorless
[2019-03-31 16:53] LABS: Nucleated Cells, Body Fluid 11 /uL; RBC, Body Fluid 73 /uL
[2019-03-31 16:55] LABS: Glucose,Whole Blood 127 mg/dL (75-99)
[2019-03-31] MEDS: AZITHROMYCIN 500 MG TAB PO SCH (17:06)
--- NOTE | 2019-03-31 19:26 | PCN ---
PROCEDURE NOTE OPERATIVE REPORT: Bronchoscopy, and random bronchial washing and bronchoalveolar lavage of the right middle lobe, lingula, and left lower lobe. PREOPERATIVE DIAGNOSIS: Severe persistent asthma with difficulty clearing secretions. POSTOPERATIVE DIAGNOSIS: Severe tracheobronchomalacia. PROCEDURE DETAILS: The patient was prepared according the bronchoscopy protocol. O2 was applied via Ventimask and nasal cannula. The patient was placed in a supine position, we monitored her O2 saturation continuously, blood pressure was intermittently monitored, and cardiac rhythm was continuously monitored. After adequate IV conscious sedation, the left naris was anesthetized with instilling lidocaine in the left naris. Then the bronchoscope was advanced through the left naris down to the area of the vocal cords. The vocal cords were noted to be patent. Lidocaine was applied over the vocal cords, and the bronchoscope was advanced further down to the trachea. Thorough examination was done of the trachea, moi, right upper lobe, right middle lobe, right lower lobe, left upper lobe lingula and left lower lobe. There was very minimal purulent secretions in the airways. However, there was significant tracheomalacia noted. Lavage of the lingula, left lower lobe and right middle lobe was done, washings were sent for different diagnostic studies. Procedure was well tolerated, no evidence of any immediate complications. MMODL / IJN: [id number] /
[2019-03-31 20:17] LABS: Glucose,Whole Blood 116 mg/dL (75-99)
[2019-03-31 21:20] LABS: Glucose,Whole Blood 94 mg/dL (75-99)
[2019-04-01] MEDS: HEPARIN SODIUM,PORCINE 5,000 UNIT/ML 1 ML VIAL SQ SCH ×3 (00:24→17:44)
[2019-04-01] MEDS: methylPREDNISolone SOD SUCCI 125 MG/2 ML VIAL IV SCH ×4 (00:25→17:44)
[2019-04-01 06:51] LABS: Glucose,Whole Blood 162 mg/dL (75-99)
[2019-04-01] MEDS: ALBUTEROL NEBULIZED 2.5 MG/3 ML INHALATION PRN ×3 (07:07→15:43)
[2019-04-01] MEDS: ACETYLCYSTEINE 800 MG/4 ML VIAL INHALATION SCH (07:07)
[2019-04-01] MEDS: BUDESONIDE 1 MG/2 ML NEBU INHALATION SCH (07:07)
[2019-04-01 07:08] LABS: HCT 38.8 % (34.0-46.0); HGB 12.4 gm/dL (11.4-16.0); MCH 28.4 pg (25.0-35.0); MCHC 31.9 g/dL (31.0-37.0); Mean Platelet Volume 8.9; Platelet Count 209 k/uL (150-450); RBC 4.37 m/uL (3.80-5.40); RDW 14.5 % (11.5-15.5); WBC 12.8 k/uL (3.8-10.6)
[2019-04-01 07:13] LABS: African American GFR (CKD) >90 (>60 ml/min/1.73 sqM); Anion Gap 8 mmol/L; Blood Urea Nitrogen 24 mg/dL (7-17); Calcium 9.3 mg/dL (8.4-10.2); Carbon Dioxide 30 mmol/L (22-30); Chloride 100 mmol/L (98-107); Glucose 143 mg/dL (74-99); Non-African American GFR(CKD) >90 (>60 ml/min/1.73 sqM); Potassium 4.4 mmol/L (3.5-5.1); Sodium 138 mmol/L (137-145)
[2019-04-01] MEDS: INSULIN ASPART (NovoLOG) 100 UNIT/ML VIAL SQ SCH ×3 (07:20→17:39)
[2019-04-01 07:26] VITALS: BP 136/83; RESP 21; TEMP 98.2
--- NOTE | 2019-04-01 08:44 | P.PN ---
Subjective Progress Note Date: 04/01/19 Principal diagnosis: Acute exacerbation of severe persistent bronchial asthma, in a patient with severe tracheobronchomalacia The patient was seen today 03/29/2019 in follow-up on the selective care unit. She is currently sitting up in bed. Awake and alert in no acute distress. Still with a loose mostly nonproductive cough. Having trouble expectorating. Feeling a bit better but still not back to her baseline. Maintaining O2 saturations in the 90s on 3 L/m per nasal cannula. She slept well last night. Dr. Johnson had adjusted her BiPAP settings to 15/9 yesterday. The patient is seen today 03/30/2019 in follow-up on the selective care unit. She is awake and alert in no acute distress. She continues with a loose nonproductive cough. Continues with some dyspnea on exertion. Not quite back to her baseline. We will add a flutter valve. She is maintaining good O2 saturations in the 90s on 3 L/m per nasal cannula. He is afebrile. Hemodynamically stable. She is continued on IV Solu-Medrol, bronchodilators, Singulair, ceftriaxone and azithromycin. On 03/31/2019 patient seen in follow-up on selective care unit, still coughing, still dyspneic on exertion, she states there has been only limited improvement in her breathing since she came in, [place] liters of oxygen with a pulse ox 93%, she's been afebrile, hemodynamically stable, Zithromax and Rocephin for antibiotic coverage, brain treatments and IV steroids, Mucomyst has been added. Patient has been nothing by mouth after midnight, for a bronchoscopy with BAL today with Dr. Hager On 04/01/2019 patient seen in follow-up on the general medical floor. She is resting comfortably in bed, currently on her CPAP device, she states she was able to bring up some yellowish colored phlegm last night, and is feeling less congested today, lung sounds are positive for scattered rhonchi, no wheezes, patient remains on combination Zithromax and Rocephin IV steroids in bronchodilators, today's labs have been reviewed showing white blood cell count of 12.8, hemoglobin of 12.4, electrolytes were within normal limits, BUN is 24 creatinine was 0.74, bronchial lavage cultures are still pending at this time. Pulse ox is 95% on 2 L of oxygen patient is afebrile, she has been ambulating about the room, tolerated activity fairly well, no other acute issues overnight, patient is hoping to be able to go home today. Objective - Vital Signs Vital signs: Vital Signs Temp 98.2 F 04/01/19 07:24 Pulse 80 04/01/19 07:30 Resp 21 04/01/19 07:24 BP 136/83 04/01/19 07:24 Pulse Ox 95 04/01/19 07:10 Intake & Output 03/31/19 04/01/19 04/01/19 18:59 06:59 18:59 Intake Total 660 Balance 660 Weight 88.3 kg Intake: IV 200 Intake, IV Titration 50 Amount cefTRIAXone 1 gm In 50 Sodium Chloride 0.9% 50 ml @ 100 mls/hr IVPB Q24HR [facility] Rx#:[id number] Oral 410 Other: Voiding Method Toilet # Voids 0 - Exam General Appearance Alert pleasant 53-year-old female patient, on 3 L of oxygen the pulse ox of 95% no respiratory distress, no dyspnea, well nourished, appears well, obesity HEENT no pursed lip breathing, no jugular venous distention, no mucous membrane cyanosis, no perioral cyanosis, mallampati classification: class 1, Mallampati Classification: Class 4 Chest diminished breath sounds along with some expiratory wheezes heard throughout the lung luevano bilaterally. Scattered rhonchi. Heart no right ventricular heave, no distant heart sounds, no s3 gallop, (normal) jugular vein: jugular venous distention: by 0cm, (normal) jugular vein GI Abdominal exam revealed normal bowel sounds. The abdomen was soft, non- tender, and without masses, organomegaly, or appreciable enlargement of the ab dominal aorta. Extremities Examination of the extremities revealed easily palpable radial, femoral and pedal pulses. There was no cyanosis, clubbing or edema. Neurologic no decreased mental status, no somnolence, no confusion Assisstive Devices: ambulates with no assitive devices Gait and Mobility: gait WNL, full weight bearing Examination of the skin revealed no evidence of significant rashes, suspicious appearing nevi or other concerning lesions. - Labs CBC & Chem 7: 04/01/19 06:22 04/01/19 06:22 Labs: Abnormal Lab Results - Last 24 Hours (Table) 03/31/19 03/31/19 03/31/19 Range/Units 11:45 16:52 20:16 WBC (3.8-10.6) k/uL BUN (7-17) mg/dL Glucose (74-99) mg/dL POC Glucose (mg/dL) 133 H 127 H 116 H (75-99) mg/dL 04/01/19 04/01/19 04/01/19 Range/Units 06:22 06:22 06:41 WBC 12.8 H (3.8-10.6) k/uL BUN 24 H (7-17) mg/dL Glucose 143 H (74-99) mg/dL POC Glucose (mg/dL) 162 H (75-99) mg/dL Microbiology - Last 24 Hours (Table) 03/31/19 13:27 Acid Fast Bacilli Smear - Final Bronchial Washings - Right Acid Fast Bacilli Culture - Preliminary 03/31/19 13:27 Gram Stain - Preliminary Bronchial Washings - Right Bronchial Washings Culture - Preliminary 03/31/19 13:27 Fungal Culture - Preliminary Bronchial Washings - Right Assessment and Plan Plan: Assessment: 1 acute exacerbation of severe persistent bronchial asthma. The patient is actively bronchospastic and wheezy. No evidence of pneumonia. 2 severe tracheobronchomalacia previous insertion and removal of a Chary-en-Y stents. She is post bronchoscopy done in December 2018 showed no significant microbial growth. 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 3 obstructive sleep apnea maintained on APAP 4 Acid reflux 5 hypothyroidism 6 history of viral cardiomyopathy, recovered 7 vitamin D deficiency 8 iron deficiency 9 history of bariatric surgery him a post-gastric sleeve. 10 history of spinal stenosis Plan: Patient is clinically stable, no fever or chills, bronchial lavage cultures are still pending at this time, patient remains on commission Zithromax and Rocephin IV steroids and breathing treatments, she states she is feeling less congested on today's exam, she is tolerating ambulation, white blood cell count on today's labs is trending down, no acute events overnight, patient can be discharged home from pulmonary perspective she can finish outpatient course of antibiotics and prednisone taper, follow up with Dr. Johnson in 7-10 days. I performed a history & physical examination of the patient and discussed their management with my nurse practitioner, Amanda Stover. I reviewed the nurse practitioner's note and agree with the documented findings and plan of care. Magali ng sounds are positive for diffuse rhonchi. The findings and the impression was discussed with the patient. I attest to the documentation by the nurse practitioner. Time with Patient: Less than 30
[2019-04-01] MEDS: ISOSORBIDE MONONITRATE ER 15 MG TAB PO SCH (08:58)
[2019-04-01] MEDS: MONTELUKAST 10 MG TAB PO SCH (08:58)
[2019-04-01] MEDS: guaiFENesin 600 MG TABLET.ER PO SCH (08:58)
[2019-04-01] MEDS: METOPROLOL SUCCINATE (ER) 25 MG TAB.ER.24H PO SCH (08:58)
[2019-04-01] MEDS: PANTOPRAZOLE 40 MG TABLET PO SCH (08:58)
[2019-04-01] MEDS: FERROUS SULFATE 325 MG TAB PO SCH (08:58)
[2019-04-01] MEDS: SENNOSIDES-DOCUSATE SODIUM 1 EACH TAB PO SCH (08:59)
[2019-04-01] MEDS: VENLAFAXINE HCL ER 75 MG CAP PO SCH (08:59)
[2019-04-01] MEDS: TRIAMTERENE-HCTZ 37.5-25MG 1 EACH CAP PO SCH (08:59)
[2019-04-01 10:27] VITALS: BMI 38.0
--- NOTE | 2019-04-01 11:58 | P.DS ---
Providers Date of admission: 03/26/19 21:07 Expected date of discharge: 04/01/19 Attending physician: Irasema Victor MD Consults: 03/26/19 21:07 Consult Physician Urgent Consulting Provider: Parish Johnson Consult Reason/Comments: Bronchotrachealmalacia Do you want consulting provider notified?: Yes Primary care physician: Andrews Kameron Hospital Course: Discharge Diagnosis: Acute exacerbation of asthma with Severe tracheobronchomalacia status post removal of stent, and possible acute bronchitis Acute on chronic hypoxic respiratory failure, acute resolved Obstructive sleep apnea on CPAP Morbid obesity BMI 38 Constipation GERD HTN Hospital Course: Patient is a 53-year-old female with severe persistent bronchial asthma and severe tracheobronchial malacia with history of tracheal stent s/p removal, chronic hypoxic respiratory failure on 3-4 L nasal cannula, and morbid obesity who presented to the emergency department with complaints of worsening shortness of breath and cough. She underwent an extensive evaluation in the ER. Her initial vital signs showed tachycardia with a rate of 125 and tachypnea with a rate of 34. Initial laboratory analysis showed an elevated white blood cell count at 13.4, initial ABG showed a CO2 of 54, O2 65, influenza was negative. Chest x-ray showed no acute process. She was started on steroids, bronchodilators, Rocephin and Zithromax and admitted for acute exacerbation of asthma as well as acute purulent tracheobronchitis. Pulmonary was consulted who agreed with current management. She intermittently required her CPAP. She continued to improve slowly. She WBC initially increased and then decreased. Pulmonary completed bronchoscopy 03/31/19. She was feeling much improved on 04/01 and was determined stable for discharge home. She'll complete a total of 10 days of antibiotics, and a prolonged steroid taper. She'll follow up with Dr. Johnson in 7-10 days. She'll follow up with Dr. Hunt in 2-3 days. Patient seen and examined at bedside. Breathing is improved,wheezing and cough better. No nuasea, Constipation is improved. Vital signs reviewed and stable. General: non toxic, no distress, appears at stated age Derm: warm, dry Head: atraumatic, normocephalic, symmetric Eyes: EOMI, no lid lag, anicteric sclera Mouth: no lip lesion, mucus membranes moist Cardiovascular: S1S2 reg, no murmur, positive posterior tibial pulse bilateral, Lungs: Decreased bs bilateral, no rhonchi, no rales , no accessory muscle use Abdominal: soft, nontender to palpation, no guarding, no appreciable organomegaly Ext: no gross muscle atrophy, no edema, no contractures Neuro: CN II-XI grossly intact, no focal neuro deficits Psych: Alert, oriented, appropriate affect A total of 35 minutes of time were spent preparing this complex discharge summary . Patient Condition at Discharge: Stable Plan - Discharge Summary New Discharge Prescriptions: New Omeprazole 40 mg PO PC-BID #60 capsule. Cefdinir 300 mg PO Q12HR #6 cap predniSONE 0 mg PO DIRECTED #40 tab Azithromycin [Zithromax] 500 mg PO DAILY@1800 #3 tab Continue Montelukast [Singulair] 10 mg PO DAILY Ferrous Sulfate [Iron (65 MG Elemental)] 325 mg PO DAILY Vitamin B Complex 1 cap PO DAILY Levalbuterol Tartrate [Xopenex Hfa Inhaler] 2 puff INHALATION RT-QID PRN #1 hfa.aer.ad PRN Reason: Shortness Of Breath Promethazine HCl [Phenergan Syrup] 12.5 mg PO HS PRN PRN Reason: Cough Multivitamins, Thera [Multivitamin (formulary)] 1 tab PO DAILY Cholecalciferol [Vitamin D3 (25 Mcg = 1000 Iu)] 5,000 unit PO DAILY Venlafaxine HCl ER [Effexor XR] 75 mg PO DAILY Budesonide [Pulmicort] 0.5 mg INHALATION RT-BID Albuterol Nebulized [Ventolin Nebulized] 2.5 mg INHALATION RT-QID PRN PRN Reason: Dyspnea L.acidoph,Paracasei, B.lactis [Probiotic] 1 cap PO DAILY Calcium Polycarbophil [Fibercon] 625 mg PO DAILY PRN PRN Reason: Constipation Acetaminophen Tab [Tylenol] 500 mg PO BID PRN PRN Reason: Pain Sennosides [Senna] 17.2 mg PO DAILY PRN PRN Reason: Constipation Metoprolol Succinate (ER) [Toprol XL] 25 mg PO DAILY Isosorbide Mononitrate [Isosorbide Mononitrate ER] 15 mg PO DAILY Ipratropium-Albuterol Nebulize [Duoneb 0.5 mg-3 mg/3 ml Soln] 3 ml INHALATION RT-BID Acetylcysteine [Mucomyst] 800 mg INHALATION RT-DAILY Naltrexone HCl/Bupropion HCl [Contrave ER 8-90 mg Tablet] 2 tab PO BID Triamterene/Hydrochlorothiazid [Dyazide 37.5-25 Capsule] 1 cap PO DAILY Biotin 5,000 mcg PO DAILY Discontinued Omeprazole 40 mg PO BID predniSONE 40 mg PO DAILY Discharge Medication List Montelukast [Singulair] 10 mg PO DAILY 04/16/17 [History] Ferrous Sulfate [Iron (65 MG Elemental)] 325 mg PO DAILY 10/31/17 [History] Vitamin B Complex 1 cap PO DAILY 02/15/18 [History] Levalbuterol Tartrate [Xopenex Hfa Inhaler] 2 puff INHALATION RT-QID PRN #1 hfa.aer.ad 03/31/18 [Rx] Albuterol Nebulized [Ventolin Nebulized] 2.5 mg INHALATION RT-QID PRN 08/23/18 [History] Budesonide [Pulmicort] 0.5 mg INHALATION RT-BID 08/23/18 [History] Cholecalciferol [Vitamin D3 (25 Mcg = 1000 Iu)] 5,000 unit PO DAILY 08/23/18 [History] L.acidoph,Paracasei, B.lactis [Probiotic] 1 cap PO DAILY 08/23/18 [History] Multivitamins, Thera [Multivitamin (formulary)] 1 tab PO DAILY 08/23/18 [History] Promethazine HCl [Phenergan Syrup] 12.5 mg PO HS PRN 08/23/18 [History] Venlafaxine HCl ER [Effexor XR] 75 mg PO DAILY 08/23/18 [History] Acetaminophen Tab [Tylenol] 500 mg PO BID PRN 09/26/18 [History] Calcium Polycarbophil [Fibercon] 625 mg PO DAILY PRN 09/26/18 [History] Isosorbide Mononitrate [Isosorbide Mononitrate ER] 15 mg PO DAILY 09/26/18 [History] Metoprolol Succinate (ER) [Toprol XL] 25 mg PO DAILY 09/26/18 [History] Sennosides [Senna] 17.2 mg PO DAILY PRN 09/26/18 [History] Acetylcysteine [Mucomyst] 800 mg INHALATION RT-DAILY 10/29/18 [History] Ipratropium-Albuterol Nebulize [Duoneb 0.5 mg-3 mg/3 ml Soln] 3 ml INHALATION RT-BID 10/29/18 [History] Naltrexone HCl/Bupropion HCl [Contrave ER 8-90 mg Tablet] 2 tab PO BID 01/23/19 [History] Triamterene/Hydrochlorothiazid [Dyazide 37.5-25 Capsule] 1 cap PO DAILY 01/23/19 [History] Biotin 5,000 mcg PO DAILY 03/26/19 [History] Omeprazole 40 mg PO PC-BID #60 capsule. 03/29/19 [Rx] Azithromycin [Zithromax] 500 mg PO DAILY@1800 #3 tab 04/01/19 [Rx] Cefdinir 300 mg PO Q12HR #6 cap 04/01/19 [Rx] predniSONE 0 mg PO DIRECTED #40 tab 04/01/19 [Rx] Follow up Appointment(s)/Referral(s): Parish Johnson MD [STAFF PHYSICIAN] - 1 Week Andrews Melo [Primary Care Provider] - 1-2 days Jignesh Singh MD [STAFF PHYSICIAN] - 04/01/19 3:45 pm (With Nat HERNANDEZ. Previous appointment already made.) Activity/Diet/Wound Care/Special Instructions: Activity: as tolerated Diet: regular Discharge Disposition: HOME SELF-CARE
[2019-04-01 12:17] LABS: Glucose,Whole Blood 90 mg/dL (75-99)
[2019-04-01 16:00] VITALS: PULSE 65
[2019-04-01 17:13] LABS: Glucose,Whole Blood 103 mg/dL (75-99)
== END 2019-04-01 18:15 | disposition home or self-care (01) | DRG 202 ==
LOC: EC 19:16 → 3SCARD 21:07 → 4SSUR 03-31 21:02
PROVIDERS: ADMIT Internal Medicine; ATTEND Internal Medicine
PROC: 5A09557 Assistance with Respiratory Ventilation, Greater than 96 Consecutive Hours, Continuous Positive Airway Pressure (ICD-10-PCS; 2019-03-26)
PROC: 0B9J8ZX Drainage of Left Lower Lung Lobe, Via Natural or Artificial Opening Endoscopic, Diagnostic (ICD-10-PCS; principal; 2019-03-31 07:30)
PROC: 0B9D8ZX Drainage of Right Middle Lung Lobe, Via Natural or Artificial Opening Endoscopic, Diagnostic (ICD-10-PCS; principal; 2019-03-31 07:30)
PROC: 0BD58ZX Extraction of Right Middle Lobe Bronchus, Via Natural or Artificial Opening Endoscopic, Diagnostic (ICD-10-PCS; principal; 2019-03-31 07:30)
PROC: 0BDB8ZX Extraction of Left Lower Lobe Bronchus, Via Natural or Artificial Opening Endoscopic, Diagnostic (ICD-10-PCS; principal; 2019-03-31 07:30)
DX: J45.51 Severe persistent asthma with (acute) exacerbation (principal); J96.21 Acute and chronic respiratory failure with hypoxia; J98.09 Other diseases of bronchus, not elsewhere classified; K21.9 Gastro-esophageal reflux disease without esophagitis; I10 Essential (primary) hypertension; E55.9 Vitamin D deficiency, unspecified; D50.9 Iron deficiency anemia, unspecified; E66.01 Morbid (severe) obesity due to excess calories; J44.9 Chronic obstructive pulmonary disease, unspecified; M19.90 Unspecified osteoarthritis, unspecified site; G47.30 Sleep apnea, unspecified; E07.9 Disorder of thyroid, unspecified; G47.33 Obstructive sleep apnea (adult) (pediatric); R00.0 Tachycardia, unspecified; G43.909 Migraine, unspecified, not intractable, without status migrainosus; F41.9 Anxiety disorder, unspecified; F32.9 Major depressive disorder, single episode, unspecified; E03.9 Hypothyroidism, unspecified; T38.0X5A Adverse effect of glucocorticoids and synthetic analogues, initial encounter; D72.829 Elevated white blood cell count, unspecified; J20.9 Acute bronchitis, unspecified; K59.00 Constipation, unspecified; Z68.38 Body mass index [BMI] 38.0-38.9, adult; Z71.3 Dietary counseling and surveillance; Z99.81 Dependence on supplemental oxygen; Z79.52 Long term (current) use of systemic steroids; Z79.899 Other long term (current) drug therapy; Z90.710 Acquired absence of both cervix and uterus; Z90.49 Acquired absence of other specified parts of digestive tract; Z87.01 Personal history of pneumonia (recurrent); Z98.84 Bariatric surgery status; Z98.1 Arthrodesis status; Z98.890 Other specified postprocedural states; Z90.721 Acquired absence of ovaries, unilateral; Z87.2 Personal history of diseases of the skin and subcutaneous tissue; Z86.79 Personal history of other diseases of the circulatory system; Z86.39 Personal history of other endocrine, nutritional and metabolic disease; Z86.19 Personal history of other infectious and parasitic diseases; Z88.6 Allergy status to analgesic agent; Z88.1 Allergy status to other antibiotic agents; Z91.013 Allergy to seafood; Z91.018 Allergy to other foods; Z83.3 Family history of diabetes mellitus; Z84.1 Family history of disorders of kidney and ureter; Z82.62 Family history of osteoporosis; Z82.69 Family history of other diseases of the musculoskeletal system and connective tissue; Z80.49 Family history of malignant neoplasm of other genital organs; Z82.49 Family history of ischemic heart disease and other diseases of the circulatory system
CPT/HCPCS: 31624; 36415; 36600; 71045; 80048; 80053; 82728; 82805; 83036; 83540; 83550; 83605; 83735; 84484; 85025; 85027; 85610; 85730; 87070; 87102; 87116; 87205; 87206; 87252; 87496; 87498; 87502; 87529; 87634; 87798; 89050; 93005; 94640; 94660; 94667; 94760; 96361; 96365; 96366; 96367; 96368; 96372; 96375; 96376; 99285

== ENCOUNTER 2019-07-14 18:35 | Observation (INO) | payer BC, OTHER ==
[2019-07-14] MEDS ORDERED: ONDANSETRON 4 MG/2 ML VIAL IVP STA (19:14)
[2019-07-14] MEDS ORDERED: SODIUM CHLORIDE 0.9% 1,000 ML IV STA (19:14)
[2019-07-14] MEDS ORDERED: oxyCODONE-APAP 5-325MG 1 EACH TAB PO STA (19:15)
--- NOTE | 2019-07-14 19:20 | ED ---
Abdominal Pain HPI - General Chief Complaint: Abdominal Pain Stated Complaint: Chest pain Time Seen by Provider: 07/14/19 19:00 Source: patient Mode of arrival: wheelchair Limitations: no limitations - History of Present Illness Initial Comments: Patient is 54-year-old female with history of tracheomalacia presenting to the emergency Department with a chief complaint of abdominal pain. Patient reports a history of "gallbladder issues". Patient reports her most recent abdominal ultrasound was several years ago and it shows some inflammation. She also reports having previous HIDA scan but never had a cholecystectomy. Patient reports over the last few weeks she has developed increased postprandial pain along with nausea but no vomiting. Patient reports earlier today she had a large meal and went to sleep. Patient reports she will go about 2 hours of significant right upper quadrant pain and nausea. Patient also reports pain that is radiating to her right shoulder. Denies taking any medication to alleviate the symptoms. Patient reports she did previously take Percocets for general aches and pains and it worked well for her. Patient does use 2-3 L of oxygen at home. - Related Data Home Medications Medication Instructions Recorded Confirmed Montelukast [Singulair] 10 mg PO DAILY 04/16/17 07/14/19 Vitamin B Complex 1 cap PO DAILY 02/15/18 07/14/19 Budesonide [Pulmicort] 0.5 mg INHALATION RT-BID PRN 08/23/18 07/14/19 Cholecalciferol [Vitamin D3 (25 5,000 unit PO DAILY 08/23/18 07/14/19 Mcg = 1000 Iu)] L.acidoph,Paracasei, B.lactis 1 cap PO DAILY 08/23/18 07/14/19 [Probiotic] Multivitamins, Thera [Multivitamin 1 tab PO DAILY 08/23/18 07/14/19 (formulary)] Venlafaxine HCl ER [Effexor XR] 75 mg PO DAILY 08/23/18 07/14/19 Acetaminophen Tab [Tylenol] 500 mg PO BID PRN 09/26/18 07/14/19 Calcium Polycarbophil [Fibercon] 625 mg PO DAILY PRN 09/26/18 07/14/19 Isosorbide Mononitrate [Isosorbide 30 mg PO DAILY 09/26/18 07/14/19 Mononitrate ER] Metoprolol Succinate (ER) [Toprol 25 mg PO DAILY 09/26/18 07/14/19 XL] Acetylcysteine [Mucomyst] 800 mg INHALATION RT-DAILY 10/29/18 07/14/19 Ipratropium-Albuterol Nebulize 3 ml INHALATION RT-QID PRN 10/29/18 07/14/19 [Duoneb 0.5 mg-3 mg/3 ml Soln] Naltrexone HCl/Bupropion HCl 2 tab PO BID 01/23/19 07/14/19 [Contrave ER 8-90 mg Tablet] Levalbuterol Tartrate [Xopenex Hfa 2 puff INHALATION RT-Q6H PRN 07/14/19 07/14/19 Inhaler] Previous Rx's Medication Instructions Recorded Omeprazole 40 mg PO PC-BID #60 capsule. 03/29/19 Allergies Allergy/AdvReac Type Severity Reaction Status Date / Time ciprofloxacin [From Cipro] Allergy Itching Verified 07/14/19 22:44 gluten Allergy Abdominal Verified 07/14/19 22:44 Pain/HEADACHES NSAIDS (Non-Steroidal AdvReac Abdominal Verified 07/14/19 22:44 Anti-Inflamma Pain shellfish derived [Shellfish] AdvReac Vomiting Verified 07/14/19 22:44 Review of Systems ROS Statement: Those systems with pertinent positive or pertinent negative responses have been documented in the HPI. ROS Other: All systems not noted in ROS Statement are negative. Past Medical History Past Medical History: Asthma, COPD, GERD/Reflux, Osteoarthritis (OA), Pneumonia, Sleep Apnea/CPAP/BIPAP, Thyroid Disorder Additional Past Medical History / Comment(s): severe tracheobronchomalacia , obstructive sleep apnea, past cardiomyopathy thought viral, occasional tachycardia especially when eats and with activity, ITZ with CPAP use, near syncope when she had the flu and with a dental procedure-checked fitbit and heart rate in 50s, thyroid nodules with neg bx. Spinal stenosis. Gluten sensitivity. Vitamin D deficiency, iron deficiency anemia, migraines,bruising more easily History of Any Multi-Drug Resistant Organisms: None Reported Past Surgical History: Appendectomy, Back Surgery, Bariatric Surgery, Section, Heart Catheterization, Hysterectomy, Orthopedic Surgery, Tonsillectomy Additional Past Surgical History / Comment(s): 2012 gastric sleeve, with hiatal hernia repair 11/2016 spinal fusion/decompression L4-L5 and S1, bilateral shoulder arthroscopies, 3 laparotomies d/t pain/ovarian cyst/adhesions, hysterectomy with R oophorectomy, 2 D&Cs after miscarriages, lipoma removed from left side of back, 2017 Cardiac cath-normal, colonoscopy, EGD's, trachea stent removed Past Anesthesia/Blood Transfusion Reactions: Motion Sickness, Postoperative Nausea & Vomiting (PONV) Additional Past Anesthesia/Blood Transfusion Reaction / Comment(s): difficult iv start Past Psychological History: Anxiety, Depression Smoking Status: Never smoker Past Alcohol Use History: Occasional Past Drug Use History: None Reported - Past Family History Father Family Medical History: Cancer, Diabetes Mellitus, Renal Disease Additional Family Medical History / Comment(s): Father is from kidney failure d/t diabetes. He at the age of 68yrs. Mother Family Medical History: Cancer, Congestive Heart Failure (CHF), Coronary Artery Disease (CAD), Diabetes Mellitus, Myocardial Infarction ([place]), Thyroid Disorder Additional Family Medical History / Comment(s): Mother has had multiple MIs with first one at about age 72 yrs. She has had CABG and has 7 cardiac stents. She is in remision from uterine cancer and has osteoporosis. She is 81 yrs old, polymyalgia rheumatica . General Exam Limitations: no limitations General appearance: alert, in no apparent distress, obese Head exam: Present: atraumatic, normocephalic, normal inspection Eye exam: Present: normal appearance, PERRL, EOMI Pupils: Present: normal accommodation ENT exam: Present: normal exam Neck exam: Present: normal inspection, full ROM Respiratory exam: Present: wheezes (Mild wheezing bilaterally) Cardiovascular Exam: Present: regular rate, normal rhythm, normal heart sounds GI/Abdominal exam: Present: soft, tenderness (Positive Casarez sign.Quadrant tenderness.). Absent: distended Extremities exam: Present: normal inspection, full ROM Back exam: Present: normal inspection, full ROM Neurological exam: Present: alert, oriented X3 Psychiatric exam: Present: normal affect, normal mood Skin exam: Present: warm, dry, intact, normal color Course Vital Signs 07/14/19 07/14/19 07/14/19 18:46 21:10 21:37 Temperature 98.0 F Pulse Rate 89 69 69 Respiratory 18 18 18 Rate Blood Pressure 155/98 110/78 O2 Sat by Pulse 98 97 Oximetry Medical Decision Making - Medical Decision Making Patient is 54-year-old female with history of tachycardia malacia presenting to emergency Department with a chief complaint of abdominal pain. Patient does have positive Casarez sign along with a boas' sign. CBC shows mild leukocytosis. Right upper quadrant ultrasound reveals gallbladder sludge and gallstones. I spoke with who would like to admit the patient for further medical management. Patient will be nothing by mouth. Patient was also given a DuoNeb treatment due to her shortness of breath at baseline. Case discussed with physician. - Lab Data Result diagrams: 07/14/19 19:50 07/14/19 19:50 Lab Results 07/14/19 07/14/19 07/14/19 Range/Units 19:50 19:50 19:50 WBC 11.0 H (3.8-10.6) k/uL RBC 4.62 (3.80-5.40) m/uL Hgb 13.4 (11.4-16.0) gm/dL Hct 42.0 (34.0-46.0) % MCV 91.0 (80.0-100.0) fL MCH 29.0 (25.0-35.0) pg MCHC 31.9 (31.0-37.0) g/dL RDW 13.1 (11.5-15.5) % Plt Count 210 (150-450) k/uL Neutrophils % 80 % Lymphocytes % 14 % Monocytes % 4 % Eosinophils % 1 % Basophils % 0 % Neutrophils # 8.8 H (1.3-7.7) k/uL Lymphocytes # 1.5 (1.0-4.8) k/uL Monocytes # 0.5 (0-1.0) k/uL Eosinophils # 0.1 (0-0.7) k/uL Basophils # 0.0 (0-0.2) k/uL Sodium 142 (137-145) mmol/L Potassium 4.0 (3.5-5.1) mmol/L Chloride 105 (98-107) mmol/L Carbon Dioxide 31 H (22-30) mmol/L Anion Gap 6 mmol/L BUN 20 H (7-17) mg/dL Creatinine 0.77 (0.52-1.04) mg/dL Est GFR (CKD-EPI)AfAm >90 (>60 ml/min/1.73 sqM) Est GFR (CKD-EPI)NonAf 89 (>60 ml/min/1.73 sqM) Glucose 94 (74-99) mg/dL Calcium 9.7 (8.4-10.2) mg/dL Total Bilirubin 0.4 (0.2-1.3) mg/dL AST 108 H (14-36) U/L ALT 38 H (4-34) U/L Alkaline Phosphatase 76 (38-126) U/L Troponin I (0.000-0.034) ng/mL Total Protein 6.9 (6.3-8.2) g/dL Albumin 4.5 (3.5-5.0) g/dL Amylase 45 (30-110) U/L Lipase 167 (23-300) U/L Urine Color Yellow Urine Appearance Clear (Clear) Urine pH 5.5 (5.0-8.0) Ur Specific [place] 1.034 (1.001-1.035) Urine Protein Trace H (Negative) Urine Glucose (UA) Negative (Negative) Urine Ketones Negative (Negative) Urine Blood Negative (Negative) Urine Nitrite Negative (Negative) Urine Bilirubin Negative (Negative) Urine Urobilinogen 3.0 (<2.0) mg/dL Ur Leukocyte Esterase Small H (Negative) Urine RBC 2 (0-5) /hpf Urine WBC 1 (0-5) /hpf Ur Squamous Epith Cells 1 (0-4) /hpf Urine Bacteria Rare H (None) /hpf Urine Mucus Many H (None) /hpf 05/18/20 Range/Units 19:50 WBC (3.8-10.6) k/uL RBC (3.80-5.40) m/uL Hgb (11.4-16.0) gm/dL Hct (34.0-46.0) % MCV (80.0-100.0) fL MCH (25.0-35.0) pg MCHC (31.0-37.0) g/dL RDW (11.5-15.5) % Plt Count (150-450) k/uL Neutrophils % % Lymphocytes % % Monocytes % % Eosinophils % % Basophils % % Neutrophils # (1.3-7.7) k/uL Lymphocytes # (1.0-4.8) k/uL Monocytes # (0-1.0) k/uL Eosinophils # (0-0.7) k/uL Basophils # (0-0.2) k/uL Sodium (137-145) mmol/L Potassium (3.5-5.1) mmol/L Chloride (98-107) mmol/L Carbon Dioxide (22-30) mmol/L Anion Gap mmol/L BUN (7-17) mg/dL Creatinine (0.52-1.04) mg/dL Est GFR (CKD-EPI)AfAm (>60 ml/min/1.73 sqM) Est GFR (CKD-EPI)NonAf (>60 ml/min/1.73 sqM) Glucose (74-99) mg/dL Calcium (8.4-10.2) mg/dL Total Bilirubin (0.2-1.3) mg/dL AST (14-36) U/L ALT (4-34) U/L Alkaline Phosphatase (38-126) U/L Troponin I <0.012 (0.000-0.034) ng/mL Total Protein (6.3-8.2) g/dL Albumin (3.5-5.0) g/dL Amylase (30-110) U/L Lipase (23-300) U/L Urine Color Urine Appearance (Clear) Urine pH (5.0-8.0) Ur Specific [place] (1.001-1.035) Urine Protein (Negative) Urine Glucose (UA) (Negative) Urine Ketones (Negative) Urine Blood (Negative) Urine Nitrite (Negative) Urine Bilirubin (Negative) Urine Urobilinogen (<2.0) mg/dL Ur Leukocyte Esterase (Negative) Urine RBC (0-5) /hpf Urine WBC (0-5) /hpf Ur Squamous Epith Cells (0-4) /hpf Urine Bacteria (None) /hpf Urine Mucus (None) /hpf - EKG Data EKG Comments: EKG shows sinus rhythm with a previous Q wave in lead 3. Ventricular rate 72, by mouth 190, QRS 92, QTC 430. Disposition Clinical Impression: Gallbladder sludge, Cholelithiasis Disposition: ADMITTED IP TO THIS [facility] Condition: Good Is patient prescribed a controlled substance at d/c from ED?: No Time of Disposition: 21:17
[2019-07-14] MEDS ORDERED: MORPHINE SULFATE 4 MG/ML SYRINGE IVP STA (19:53)
[2019-07-14] MEDS ORDERED: HYDROmorphone 0.5 MG/0.5 ML SYRINGE IVP STA (19:54)
[2019-07-14 20:00] LABS: Basophils % (A) 0 %; Eosinophils # (A) 0.1 k/uL (0-0.7); Eosinophils % (A) 1 %; HGB 13.4 gm/dL (11.4-16.0); Lymphocytes # (A) 1.5 k/uL (1.0-4.8); Lymphocytes % (A) 14 %; MCHC 31.9 g/dL (31.0-37.0); Mean Platelet Volume 8.6; Monocytes # (A) 0.5 k/uL (0-1.0); Monocytes % (A) 4 %; Neutrophils # (A) 8.8 k/uL (1.3-7.7); Neutrophils % (A) 80 %; Platelet Count 210 k/uL (150-450); RBC 4.62 m/uL (3.80-5.40); RDW 13.1 % (11.5-15.5)
[2019-07-14 20:04] LABS: Appearance,Urine Clear (Clear); Bacteria,Urine Rare /hpf; Bilirubin,Urine Negative (Negative); Blood,Urine Negative (Negative); Color,Urine Yellow; Glucose,Urine (UA) Negative (Negative); Ketones,Urine Negative (Negative); Leukocyte Esterase,Urine Small (Negative); Mucus,Urine Many /hpf; Nitrite,Urine Negative (Negative); PH, Urine 5.5 (5.0-8.0); Protein,Urine Trace (Negative); RBC,Urine 2 /hpf (0-5); Specific Gravity,Urine 1.034 (1.001-1.035); Squamous Epithelial Cell,Urine 1 /hpf (0-4); WBC,Urine 1 /hpf (0-5)
[2019-07-14 20:18] LABS: ALT 38 U/L (4-34); AST 108 U/L (14-36); African American GFR (CKD) >90 (>60 ml/min/1.73 sqM); Albumin 4.5 g/dL (3.5-5.0); Alkaline Phosphatase 76 U/L (38-126); Amylase 45 U/L (30-110); Anion Gap 6 mmol/L; Blood Urea Nitrogen 20 mg/dL (7-17); Calcium 9.7 mg/dL (8.4-10.2); Carbon Dioxide 31 mmol/L (22-30); Chloride 105 mmol/L (98-107); Glucose 94 mg/dL (74-99); Non-African American GFR(CKD) 89 (>60 ml/min/1.73 sqM); Sodium 142 mmol/L (137-145); Total Bilirubin 0.4 mg/dL (0.2-1.3); Total Protein 6.9 g/dL (6.3-8.2)
[2019-07-14] MEDS ORDERED: IPRATROPIUM-ALBUTEROL 3 ML NEB INHALATION STA (20:28)
[2019-07-14] MEDS ORDERED: NALOXONE 0.4 MG/ML 1 ML VIAL IV PRN (20:30)
[2019-07-14] MEDS ORDERED: HYDROmorphone 2 MG TAB PO PRN (20:30)
[2019-07-14] MEDS ORDERED: ONDANSETRON 4 MG/2 ML VIAL IVP PRN (20:30)
[2019-07-14] MEDS ORDERED: ALPRAZolam 0.25 MG TAB PO PRN (20:30)
--- NOTE | 2019-07-14 20:41 | XR ---
EXAMINATION TYPE: XR chest 2V DATE OF EXAM: 07/14/2019 COMPARISON: 03/26/2019 INDICATION: Abdomen pain TECHNIQUE: Frontal and lateral views of the chest are obtained. FINDINGS: The heart size is normal. The pulmonary vasculature is normal. The lungs are clear. IMPRESSION: 1. No acute pulmonary process.
--- NOTE | 2019-07-14 20:48 | US ---
EXAMINATION TYPE: US abdomen limited DATE OF EXAM: 07/14/2019 COMPARISON: NONE CLINICAL HISTORY: suspected cholecystitis . epigastric and RUQ pain, worse after eating, nausea EXAM MEASUREMENTS: Liver Length: 13.5 cm Gallbladder Wall: 0.3 cm CBD: 0.5 cm Right Kidney: 9.6 x 4.4 x 4.4 cm Pancreas: Tail obscured by overlying bowel gas Liver: appears wnl Gallbladder: sludge and stones noted Evidence for sonographic Casarez's sign: yes CBD: appears wnl Right Kidney: no evidence of hydronephrosis or mass maybe dromedary hump. IMPRESSION: 1. Some sludge is suspected within the gallbladder.
[2019-07-14] MEDS: HYDROmorphone 0.5 MG/0.5 ML SYRINGE IVP PRN (23:23)
[2019-07-14] MEDS: IPRATROPIUM-ALBUTEROL 3 ML NEB INHALATION SCH (23:37)
--- NOTE | 2019-07-15 01:37 | CT ---
EXAMINATION TYPE: CT chest angio for PE DATE OF EXAM: 07/15/2019 COMPARISON: 08/15/2018 HISTORY: SOB, R/O PE CT DLP: 561 mGycm Automated exposure control for dose reduction was used. CONTRAST: Performed with IV Contrast, patient injected with 70 mL of Isovue 370. There are 3-D post processed images. FINDINGS: There is mild subsegmental atelectasis at the posterior lung bases. There is no pleural effusion. The re is no evidence of a pulmonary mass. There is no mediastinal adenopathy. There are no hilar masses. Heart size is normal. There is no rukhsana cardial effusion. Thoracic aorta appears normal with no sign of aneurysm or dissection. There is normal contrast opacification of the pulmonary arteries. There are no filling defects. Thoracic spine is intact. There is no compression fracture. Bony thorax is intact. IMPRESSION: No evidence of pulmonary embolism. There is clearing of the subcarinal and bronchial lymphadenopathy compared to old exam. There is mild atelectasis at the lung bases improved compared to old exam. Ther e is clearing of interstitial mild infiltrates in both lower lobes compared to old exam.
[2019-07-15] MEDS: SODIUM CHLORIDE 0.9% 1,000 ML IV SCH ×3 (02:03→23:41)
[2019-07-15] MEDS: HYDROmorphone 0.5 MG/0.5 ML SYRINGE IVP PRN ×7 (02:04→23:04)
[2019-07-15] MEDS ORDERED: predniSONE 20 MG TAB PO STA (03:31)
[2019-07-15] MEDS: IPRATROPIUM-ALBUTEROL 3 ML NEB INHALATION SCH ×5 (03:31→23:28)
[2019-07-15] MEDS ORDERED: IPRATROPIUM-ALBUTEROL 3 ML NEB INHALATION PRN (03:32)
--- NOTE | 2019-07-15 03:33 | P.CONS ---
History of Present Illness - Reason for Consult Consult date: 07/15/19 - History of Present Illness Patient is a 54-year-old female has severe bronchial asthma, history of, tracheobronchial malacia with history of tracheal stent (on intermittent day- time CPAP), chronic hypoxic respiratory failure on 2 L nasal cannula continuous at home, and morbid obesity presented to the ED with complaints of abdominal pain. The patient reports gradual worsening epigastric and right upper quadrant intermittent abdominal pain with associated nausea and vomiting. Patient notes that the pain worsened significantly today, crampy in nature, 8 out of 10, with radiation to the right shoulder which prompted her to come to the ED. She noted that her breathing is also gradually worsening over the past few weeks with a somewhat increased amount of cough and phlegm. She denied palpitations, diaphoresis, fever, chills, or chest pain. She also denied headaches, or visual disturbances. She reports that this feels similar to her previous episodes of bronchitis. Patient underwent an extensive evaluation in the emergency room with a CT chest angiogram with a PE study showing no evidence of PE with no i nfiltrates noted. Right upper quadrant ultrasound revealed biliary sludge with Casarez sign positive. EKG revealed a normal sinus rhythm at 73 bpm with Q waves noted inferiorly. Laboratory evaluation revealed a WBC count of 11, hemoglobin 13.4, platelet is 210, sodium 142, potassium 4.0, CO2 31, BUN 20, creatinine 0.77, and troponin less than 0.012. Patient was admitted to the surgical service for possible cholecystitis with medicine on consult. Review of Systems Pertinent positives and negatives as discussed in HPI, a complete review of systems was performed and all other systems are negative. Past Medical History Past Medical History: Asthma, COPD, GERD/Reflux, Osteoarthritis (OA), Pneumonia, Sleep Apnea/CPAP/BIPAP, Thyroid Disorder Additional Past Medical History / Comment(s): severe tracheobronchomalacia , obstructive sleep apnea, past cardiomyopathy thought viral, occasional tachycardia especially when eats and with activity, ITZ with CPAP use, near syncope when she had the flu and with a dental procedure-checked fitbit and heart rate in 50s, thyroid nodules with neg bx. Spinal stenosis. Gluten sensitivity. Vitamin D deficiency, iron deficiency anemia, migraines,bruising more easily History of Any Multi-Drug Resistant Organisms: None Reported Year Discovered:: 03/2018 MDRO Source:: Lung Past Surgical History: Appendectomy, Back Surgery, Bariatric Surgery, Section, Heart Catheterization, Hysterectomy, Orthopedic Surgery, Tonsillectomy Additional Past Surgical History / Comment(s): 2012 gastric sleeve, with hiatal hernia repair 11/2016 spinal fusion/decompression L4-L5 and S1, bilateral shoulder arthroscopies, 3 laparotomies d/t pain/ovarian cyst/adhesions, hysterectomy with R oophorectomy, 2 D&Cs after miscarriages, lipoma removed from left side of back, 2016 Cardiac cath-normal, colonoscopy, EGD's, trachea stent removed Past Anesthesia/Blood Transfusion Reactions: Motion Sickness, Postoperative Nausea & Vomiting (PONV) Additional Past Anesthesia/Blood Transfusion Reaction / Comm: difficult iv start Past Psychological History: Anxiety, Depression Smoking Status: Never smoker Past Alcohol Use History: Occasional Past Drug Use History: None Reported - Past Family History Father Family Medical History: Cancer, Diabetes Mellitus, Renal Disease Additional Family Medical History / Comment(s): Father is from kidney failure d/t diabetes. He at the age of 68yrs. Mother Family Medical History: Cancer, Congestive Heart Failure (CHF), Coronary Artery Disease (CAD), Diabetes Mellitus, Myocardial Infarction ([place]), Thyroid Disorder Additional Family Medical History / Comment(s): Mother has had multiple MIs with first one at about age 72 yrs. She has had CABG and has 7 cardiac stents. She is in remision from uterine cancer and has osteoporosis. She is 81 yrs old, polymyalgia rheumatica . Medications and Allergies Home Medications Medication Instructions Recorded Confirmed Type Montelukast [Singulair] 10 mg PO DAILY 04/16/17 07/14/19 History Vitamin B Complex 1 cap PO DAILY 02/15/18 07/14/19 History Budesonide [Pulmicort] 0.5 mg INHALATION RT-BID PRN 08/23/18 07/14/19 History Cholecalciferol [Vitamin D3 (25 5,000 unit PO DAILY 08/23/18 07/14/19 History Mcg = 1000 Iu)] L.acidoph,Paracasei, B.lactis 1 cap PO DAILY 08/23/18 07/14/19 History [Probiotic] Multivitamins, Thera [Multivitamin 1 tab PO DAILY 08/23/18 07/14/19 History (formulary)] Venlafaxine HCl ER [Effexor XR] 75 mg PO DAILY 08/23/18 07/14/19 History Acetaminophen Tab [Tylenol] 500 mg PO BID PRN 09/26/18 07/14/19 History Calcium Polycarbophil [Fibercon] 625 mg PO DAILY PRN 09/26/18 07/14/19 History Isosorbide Mononitrate [Isosorbide 30 mg PO DAILY 09/26/18 07/14/19 History Mononitrate ER] Metoprolol Succinate (ER) [Toprol 25 mg PO DAILY 09/26/18 07/14/19 History XL] Acetylcysteine [Mucomyst] 800 mg INHALATION RT-DAILY 10/29/18 07/14/19 History Ipratropium-Albuterol Nebulize 3 ml INHALATION RT-QID PRN 10/29/18 07/14/19 History [Duoneb 0.5 mg-3 mg/3 ml Soln] Naltrexone HCl/Bupropion HCl 2 tab PO BID 01/23/19 07/14/19 History [Contrave ER 8-90 mg Tablet] Omeprazole 40 mg PO PC-BID #60 capsule. 03/29/19 07/14/19 Rx Levalbuterol Tartrate [Xopenex Hfa 2 puff INHALATION RT-Q6H PRN 07/14/19 07/14/19 History Inhaler] Allergies Allergy/AdvReac Type Severity Reaction Status Date / Time ciprofloxacin [From Cipro] Allergy Itching Verified 07/14/19 22:44 gluten Allergy Abdominal Verified 07/14/19 22:44 Pain/HEADACHES NSAIDS (Non-Steroidal AdvReac Abdominal Verified 07/14/19 22:44 Anti-Inflamma Pain shellfish derived [Shellfish] AdvReac Vomiting Verified 07/14/19 22:44 Physical Exam Vitals: Vital Signs Temp Pulse Pulse Resp BP BP Pulse Ox 07/14/19 23:50 73 07/14/19 23:37 68 07/14/19 23:00 28 H 07/14/19 22:07 98.2 F 85 22 116/71 95 07/14/19 21:38 98.0 F 69 18 110/78 97 07/14/19 21:37 69 18 110/78 97 07/14/19 21:10 69 18 07/14/19 18:46 98.0 F 89 18 155/98 98 Intake and Output 07/14/19 07/14/19 07/15/19 14:59 22:59 06:59 Intake Total 0 Balance 0 Intake: Oral 0 Other: Weight 89.046 kg General: non toxic, no distress, appears somewhat older than stated age, morbidly obese Derm: no unusual rashes/lesions no unusual ecchymoses, warm, dry Head: atraumatic, normocephalic, symmetric Eyes: EOMI, no lid lag, anicteric sclera, pupils equal round reactive to light ENT: Nose and ears atraumatic, no thrush, no pharyngeal erythema Neck: No thyromegaly, no cervical lymphadenopathy, trachea midline, supple Mouth: no lip lesion, mucus membranes moist Cardiovascular: S1S2 reg, no murmur, positive posterior tibial pulse bilateral, no edema, capillary refill less than 2 seconds Lungs: Bilateral coarse breath sounds with poor air entry and minimal extremity wheezing, no rales , no accessory muscle use Abdominal: soft, RUQ and epigastric tenderness to palpation, mild guarding, no appreciable organomegaly Ext: no gross muscle atrophy, muscle strength 5 out of 5 in all 4 extremities grossly, no contractures, Neuro: CN II-XI grossly intact, light touch intact all 4 extremities, finger to nose within normal limits, Psych: Alert, oriented, appropriate affect Results CBC & Chem 7: 07/14/19 19:50 07/14/19 19:50 Labs: Abnormal Lab Results - Last 24 Hours (Table) 07/14/19 07/14/19 07/14/19 Range/Units 19:50 19:50 19:50 WBC 11.0 H (3.8-10.6) k/uL Neutrophils # 8.8 H (1.3-7.7) k/uL Carbon Dioxide 31 H (22-30) mmol/L BUN 20 H (7-17) mg/dL AST 108 H (14-36) U/L ALT 38 H (4-34) U/L Urine Protein Trace H (Negative) Ur Leukocyte Esterase Small H (Negative) Urine Bacteria Rare H (None) /hpf Urine Mucus Many H (None) /hpf Assessment and Plan Plan: Mild acute exacerbation of bronchial asthma with history of tracheomalacia -Continue with nocturnal BiPAP -Continue with home Pulmicort and Mucomyst -DuoNeb's -Start prednisone 40 mg daily Chronic hypoxic respiratory failure -Continue supplemental oxygen Chronic conditions: Hypertension, GERD, iron deficiency anemia -Continue with home meds Right upper quadrant abdominal pain, with suspected cholecystitis -As per the surgical service
[2019-07-15] MEDS: BUDESONIDE 0.5 MG/2 ML NEBU INHALATION PRN ×2 (07:41→19:12)
[2019-07-15] MEDS: ACETYLCYSTEINE 800 MG/4 ML VIAL INHALATION SCH (07:41)
[2019-07-15] MEDS: METOPROLOL SUCCINATE (ER) 25 MG TAB.ER.24H PO SCH (08:30)
[2019-07-15] MEDS: VENLAFAXINE HCL ER 75 MG CAP PO SCH (08:30)
[2019-07-15] MEDS: PANTOPRAZOLE 40 MG TABLET PO SCH ×2 (08:30→16:25)
[2019-07-15] MEDS: MONTELUKAST 10 MG TAB PO SCH (08:30)
[2019-07-15] MEDS: predniSONE 20 MG TAB PO SCH (08:32)
--- NOTE | 2019-07-15 10:56 | P.GSHP ---
History of Present Illness H&P Date: 07/15/19 Chief Complaint: Abdominal pain CHIEF COMPLAINT: Abdominal pain HISTORY OF PRESENT ILLNESS: 54-year-old female who presented to the emergency room with chief complaint of abdominal pain. Patient states she has been having abdominal pain intermittently for the past couple weeks. Patient states she ate steak and eggs yesterday and developed severe epigastric pain about an hour later. Patient states she also pain in the right upper quadrant that radiated to her right shoulder. She reports nausea but denies vomiting. Patient also reports a history of a gastric sleeve performed in 2012 in [place]. PAST MEDICAL HISTORY: See list. PAST SURGICAL HISTORY: See list. SOCIAL HISTORY: No illicit drug use. REVIEW OF SYSTEMS: CONSTITUTIONAL: Denies fever or chills. HEENT: Denies blurred vision, vision changes, or eye pain. Denies hemoptysis CARDIOVASCULAR: Denies chest pain or pressure. RESPIRATORY: No shortness of breath. GASTROINTESTINAL: Refer to [facility] for pertinent findings HEMATOLOGIC: Denies bleeding disorders. GENITOURINARY: Denies any blood in urine. SKIN: Denies pruitis. Denies rash. PHYSICAL EXAM: VITAL SIGNS: Reviewed. GENERAL: Well-developed in no acute distress. HEENT: No sclera icterus. Extraocular movements grossly intact. Moist buccal mucosa. Head is atraumatic, normocephalic. ABDOMEN: Soft. Nondistended. Tenderness upon palpation of epigastric region and right upper quadrant. NEUROLOGIC: Alert and oriented. Cranial nerves II through XII grossly intact. LABORATORY DATA: WBC 11.1. Hemoglobin 16.7. Platelet count 160. IMAGING: Abdominal ultrasound: Sludge within the gallbladder and stones. ASSESSMENT: 1. Abdominal pain 2. Acute cholecystitis PLAN: NPO IV Zosyn q 8 hours Patient to undergo laparoscopic cholecystectomy today with Dr. Nuñez Nurse practitioner note has been reviewed by physician. Signing provider agrees with the documented findings, assessment, and plan of care. Past Medical History Past Medical History: Asthma, COPD, GERD/Reflux, Osteoarthritis (OA), Pneumonia, Sleep Apnea/CPAP/BIPAP, Thyroid Disorder Additional Past Medical History / Comment(s): severe tracheobronchomalacia , obstructive sleep apnea, past cardiomyopathy thought viral, occasional tachycardia especially when eats and with activity, ITZ with CPAP use, near sync ope when she had the flu and with a dental procedure-checked fitbit and heart rate in 50s, thyroid nodules with neg bx. Spinal stenosis. Gluten sensitivity. Vitamin D deficiency, iron deficiency anemia, migraines,bruising more easily History of Any Multi-Drug Resistant Organisms: None Reported Date of last positivie culture/infection: 03/2018 MDRO Source:: Lung Past Surgical History: Appendectomy, Back Surgery, Bariatric Surgery, Section, Heart Catheterization, Hysterectomy, Orthopedic Surgery, Tonsillectomy Additional Past Surgical History / Comment(s): 2012 gastric sleeve, with hiatal hernia repair 11/2016 spinal fusion/decompression L4-L5 and S1, bilateral shoulder arthroscopies, 3 laparotomies d/t pain/ovarian cyst/adhesions, hysterectomy with R oophorectomy, 2 D&Cs after miscarriages, lipoma removed from left side of back, 2016 Cardiac cath-normal, colonoscopy, EGD's, trachea stent removed Past Anesthesia/Blood Transfusion Reactions: Motion Sickness, Postoperative Nausea & Vomiting (PONV) Additional Past Anesthesia/Blood Transfusion Reaction / Comment(s): difficult iv start Past Psychological History: Anxiety, Depression Smoking Status: Never smoker Past Alcohol Use History: Occasional Past Drug Use History: None Reported - Past Family History Father Family Medical History: Cancer, Diabetes Mellitus, Renal Disease Additional Family Medical History / Comment(s): Father is from kidney failure d/t diabetes. He at the age of 68yrs. Mother Family Medical History: Cancer, Congestive Heart Failure (CHF), Coronary Artery Disease (CAD), Diabetes Mellitus, Myocardial Infarction ([place]), Thyroid Disorder Additional Family Medical History / Comment(s): Mother has had multiple MIs with first one at about age 72 yrs. She has had CABG and has 7 cardiac stents. She is in remision from uterine cancer and has osteoporosis. She is 81 yrs old, amberly ymyalgia rheumatica . Medications and Allergies Home Medications Medication Instructions Recorded Confirmed Type Montelukast [Singulair] 10 mg PO DAILY 04/16/17 07/14/19 History Vitamin B Complex 1 cap PO DAILY 02/15/18 07/14/19 History Budesonide [Pulmicort] 0.5 mg INHALATION RT-BID PRN 08/23/18 07/14/19 History Cholecalciferol [Vitamin D3 (25 5,000 unit PO DAILY 08/23/18 07/14/19 History Mcg = 1000 Iu)] L.acidoph,Paracasei, B.lactis 1 cap PO DAILY 08/23/18 07/14/19 History [Probiotic] Multivitamins, Thera [Multivitamin 1 tab PO DAILY 08/23/18 07/14/19 History (formulary)] Venlafaxine HCl ER [Effexor XR] 75 mg PO DAILY 08/23/18 07/14/19 History Acetaminophen Tab [Tylenol] 500 mg PO BID PRN 09/26/18 07/14/19 History Calcium Polycarbophil [Fibercon] 625 mg PO DAILY PRN 09/26/18 07/14/19 History Isosorbide Mononitrate [Isosorbide 30 mg PO DAILY 09/26/18 07/14/19 History Mononitrate ER] Metoprolol Succinate (ER) [Toprol 25 mg PO DAILY 09/26/18 07/14/19 History XL] Acetylcysteine [Mucomyst] 800 mg INHALATION RT-DAILY 10/29/18 07/14/19 History Ipratropium-Albuterol Nebulize 3 ml INHALATION RT-QID PRN 10/29/18 07/14/19 History [Duoneb 0.5 mg-3 mg/3 ml Soln] Naltrexone HCl/Bupropion HCl 2 tab PO BID 01/23/19 07/14/19 History [Contrave ER 8-90 mg Tablet] Omeprazole 40 mg PO PC-BID #60 capsule. 03/29/19 07/14/19 Rx Levalbuterol Tartrate [Xopenex Hfa 2 puff INHALATION RT-Q6H PRN 07/14/19 07/14/19 History Inhaler] Allergies Allergy/AdvReac Type Severity Reaction Status Date / Time ciprofloxacin [From Cipro] Allergy Itching Verified 07/14/19 22:44 gluten Allergy Abdominal Verified 07/14/19 22:44 Pain/HEADACHES NSAIDS (Non-Steroidal AdvReac Abdominal Verified 07/14/19 22:44 Anti-Inflamma Pain shellfish derived [Shellfish] AdvReac Vomiting Verified 07/14/19 22:44 Surgical - Exam Vital Signs Temp Pulse Resp BP Pulse Ox 98.0 F 89 18 155/98 98 07/14/19 18:46 07/14/19 18:46 07/14/19 18:46 07/14/19 18:46 07/14/19 18:46 Results - Labs 07/14/19 19:50 07/14/19 19:50 Abnormal Lab Results - Last 24 Hours (Table) 07/14/19 07/14/19 07/14/19 Range/Units 19:50 19:50 19:50 WBC 11.0 H (3.8-10.6) k/uL Neutrophils # 8.8 H (1.3-7.7) k/uL Carbon Dioxide 31 H (22-30) mmol/L BUN 20 H (7-17) mg/dL AST 108 H (14-36) U/L ALT 38 H (4-34) U/L Urine Protein Trace H (Negative) Ur Leukocyte Esterase Small H (Negative) Urine Bacteria Rare H (None) /hpf Urine Mucus Many H (None) /hpf Diabetes panel 07/14/19 Range/Units 19:50 Sodium 142 (137-145) mmol/L Potassium 4.0 (3.5-5.1) mmol/L Chloride 105 (98-107) mmol/L Carbon Dioxide 31 H (22-30) mmol/L BUN 20 H (7-17) mg/dL Creatinine 0.77 (0.52-1.04) mg/dL Glucose 94 (74-99) mg/dL Calcium 9.7 (8.4-10.2) mg/dL AST 108 H (14-36) U/L ALT 38 H (4-34) U/L Alkaline Phosphatase 76 (38-126) U/L Total Protein 6.9 (6.3-8.2) g/dL Albumin 4.5 (3.5-5.0) g/dL Calcium panel 07/14/19 Range/Units 19:50 Calcium 9.7 (8.4-10.2) mg/dL Albumin 4.5 (3.5-5.0) g/dL Pituitary panel 07/14/19 Range/Units 19:50 Sodium 142 (137-145) mmol/L Potassium 4.0 (3.5-5.1) mmol/L Chloride 105 (98-107) mmol/L Carbon Dioxide 31 H (22-30) mmol/L BUN 20 H (7-17) mg/dL Creatinine 0.77 (0.52-1.04) mg/dL Glucose 94 (74-99) mg/dL Calcium 9.7 (8.4-10.2) mg/dL Adrenal panel 07/14/19 Range/Units 19:50 Sodium 142 (137-145) mmol/L Potassium 4.0 (3.5-5.1) mmol/L Chloride 105 (98-107) mmol/L Carbon Dioxide 31 H (22-30) mmol/L BUN 20 H (7-17) mg/dL Creatinine 0.77 (0.52-1.04) mg/dL Glucose 94 (74-99) mg/dL Calcium 9.7 (8.4-10.2) mg/dL Total Bilirubin 0.4 (0.2-1.3) mg/dL AST 108 H (14-36) U/L ALT 38 H (4-34) U/L Alkaline Phosphatase 76 (38-126) U/L Total Protein 6.9 (6.3-8.2) g/dL Albumin 4.5 (3.5-5.0) g/dL
[2019-07-15] MEDS: ISOSORBIDE MONONITRATE ER 30 MG TAB.ER.24H PO SCH (12:13)
--- NOTE | 2019-07-15 12:14 | P.CNPUL ---
History of Present Illness Consult date: 07/15/19 Requesting physician: Curtis Nuñez Reason for consult: other Chief complaint: Abdominal pain History of present illness: 54-year-old white female patient of Dr. Melo, with known history of tr acheobronchomalacia, severe persistent bronchial asthma, and obstructive sleep apnea. Patient has a history of previous endobronchial Chary-en-Y stenting with subsequent removal in view of recurrent bacterial infections. Patient follows up with Dr. Johnson in the pulmonary office. Other medical history includes hypothyroidism, morbid obesity, history of viral cardiomyopathy, vitamin D deficiency, iron deficiency, history of bariatric surgery, history of spinal stenosis. Patient presents to theemergency department on the 07/14/2019 with complaints of abdominal pain and nausea. In addition patient has a cough with some yellow sputum production. Ultrasound of the abdomen revealed some sludge in the gallbladder, with suspicion for cholecystitis. Chest x-ray showed no acute pulmonary process. Lab work showed mild leukocytosis, with a white blood cell count of 11, hemoglobin of 13.4, sodium of 142, potassium is 4.0, chloride is 105, CO2 31, BUN is 20 creatinine 0.7, AST is 108, ALT is 38, alk phos is 76, troponin is less than 0.012, amylase was 45, lipase is 167, urinalysis positive for trace protein, and small amount of leuks, but negative for any sign of bacteria. Afebrile, hemodynamically stable. CT angios the chest was obtained showing no evidence of pulmonary embolism, there is clearing of the subcarinal bronchial lymphadenopathy compared to old exam, mild atelectasis at the lung bases which is improved compared to old exam, and clearing of the interstitial mild infiltrates in both lower lobes. Patient was evaluated by surgical services. She still having abdominal tenderness in the right upper quadrant, and nausea but no vomiting. Patient was started on IV Zosyn and she is scheduled for laparoscopic cholecystectomy today with Dr. Nuñez Review of Systems All systems: negative Constitutional: Denies chills, Denies fever Eyes: denies blurred vision, denies pain Ears, nose, mouth and throat: Denies headache, Denies sore throat Cardiovascular: Denies chest pain, Denies shortness of breath Respiratory: Reports cough with sputum, Reports dyspnea, Reports respiratory infections, Denies cough Gastrointestinal: Reports abdominal pain, Denies diarrhea, Denies nausea, Denies vomiting Genitourinary: Denies dysuria, Denies hematuria Musculoskeletal: Denies myalgias Integumentary: Denies pruritus, Denies rash Neurological: Denies numbness, Denies weakness Psychiatric: Denies anxiety, Denies depression Endocrine: Denies fatigue, Denies weight change Past Medical History Past Medical History: Asthma, COPD, GERD/Reflux, Osteoarthritis (OA), Pneumonia, Sleep Apnea/CPAP/BIPAP, Thyroid Disorder Additional Past Medical History / Comment(s): severe tracheobronchomalacia , obstructive sleep apnea, past cardiomyopathy thought viral, occasional tachycardia especially when eats and with activity, ITZ with CPAP use, near syncope when she had the flu and with a dental procedure-checked fitbit and heart rate in 50s, thyroid nodules with neg bx. Spinal stenosis. Gluten sensitivity. Vitamin D deficiency, iron deficiency anemia, migraines,bruising more easily History of Any Multi-Drug Resistant Organisms: None Reported Date of last positivie culture/infection: 03/2018 MDRO Source:: Lung Past Surgical History: Appendectomy, Back Surgery, Bariatric Surgery, Section, Heart Catheterization, Hysterectomy, Orthopedic Surgery, Tonsillectomy Additional Past Surgical History / Comment(s): 2012 gastric sleeve, with hiatal hernia repair 11/2016 spinal fusion/decompression L4-L5 and S1, bilateral shoulder arthroscopies, 3 laparotomies d/t pain/ovarian cyst/adhesions, hysterectomy with R oophorectomy, 2 D&Cs after miscarriages, lipoma removed from left side of back, 2016 Cardiac cath-normal, colonoscopy, EGD's, trachea stent removed Past Anesthesia/Blood Transfusion Reactions: Motion Sickness, Postoperative Nausea & Vomiting (PONV) Additional Past Anesthesia/Blood Transfusion Reaction / Comment(s): difficult iv start Past Psychological History: Anxiety, Depression Smoking Status: Never smoker Past Alcohol Use History: Occasional Past Drug Use History: None Reported - Past Family History Father Family Medical History: Cancer, Diabetes Mellitus, Renal Disease Additional Family Medical History / Comment(s): Father is from kidney failure d/t diabetes. He at the age of 68yrs. Mother Family Medical History: Cancer, Congestive Heart Failure (CHF), Coronary Artery Disease (CAD), Diabetes Mellitus, Myocardial Infarction ([place]), Thyroid Disorder Additional Family Medical History / Comment(s): Mother has had multiple MIs with first one at about age 72 yrs. She has had CABG and has 7 cardiac stents. She is in remision from uterine cancer and has osteoporosis. She is 81 yrs old, polymyalgia rheumatica . Medications and Allergies Home Medications Medication Instructions Recorded Confirmed Type Montelukast [Singulair] 10 mg PO DAILY 04/16/17 07/14/19 History Vitamin B Complex 1 cap PO DAILY 02/15/18 07/14/19 History Budesonide [Pulmicort] 0.5 mg INHALATION RT-BID PRN 08/23/18 07/14/19 History Cholecalciferol [Vitamin D3 (25 5,000 unit PO DAILY 08/23/18 07/14/19 History Mcg = 1000 Iu)] L.acidoph,Paracasei, B.lactis 1 cap PO DAILY 08/23/18 07/14/19 History [Probiotic] Multivitamins, Thera [Multivitamin 1 tab PO DAILY 08/23/18 07/14/19 History (formulary)] Venlafaxine HCl ER [Effexor XR] 75 mg PO DAILY 08/23/18 07/14/19 History Acetaminophen Tab [Tylenol] 500 mg PO BID PRN 09/26/18 07/14/19 History Calcium Polycarbophil [Fibercon] 625 mg PO DAILY PRN 09/26/18 07/14/19 History Isosorbide Mononitrate [Isosorbide 30 mg PO DAILY 09/26/18 07/14/19 History Mononitrate ER] Metoprolol Succinate (ER) [Toprol 25 mg PO DAILY 09/26/18 07/14/19 History XL] Acetylcysteine [Mucomyst] 800 mg INHALATION RT-DAILY 10/29/18 07/14/19 History Ipratropium-Albuterol Nebulize 3 ml INHALATION RT-QID PRN 10/29/18 07/14/19 History [Duoneb 0.5 mg-3 mg/3 ml Soln] Naltrexone HCl/Bupropion HCl 2 tab PO BID 01/23/19 07/14/19 History [Contrave ER 8-90 mg Tablet] Omeprazole 40 mg PO PC-BID #60 capsule. 03/29/19 07/14/19 Rx Levalbuterol Tartrate [Xopenex Hfa 2 puff INHALATION RT-Q6H PRN 07/14/19 07/14/19 History Inhaler] Allergies Allergy/AdvReac Type Severity Reaction Status Date / Time ciprofloxacin [From Cipro] Allergy Itching Verified 07/14/19 22:44 gluten Allergy Abdominal Verified 07/14/19 22:44 Pain/HEADACHES NSAIDS (Non-Steroidal AdvReac Abdominal Verified 07/14/19 22:44 Anti-Inflamma Pain shellfish derived [Shellfish] AdvReac Vomiting Verified 07/14/19 22:44 Physical Exam Vitals: Vital Signs Temp Pulse Pulse Resp BP BP Pulse Ox 07/15/19 11:45 76 07/15/19 11:31 72 07/15/19 11:15 98.3 F 75 20 103/66 95 07/15/19 08:23 98.1 F 75 22 103/67 95 07/15/19 08:09 70 07/15/19 07:56 70 07/15/19 07:42 78 07/15/19 04:00 97.8 F 66 20 113/57 100 07/15/19 03:44 72 07/15/19 03:31 70 07/15/19 02:00 98 F 83 20 113/77 97 07/14/19 23:50 73 07/14/19 23:37 68 07/14/19 23:00 28 H 07/14/19 22:07 98.2 F 85 22 116/71 95 07/14/19 21:38 98.0 F 69 18 110/78 97 07/14/19 21:37 69 18 110/78 97 07/14/19 21:10 69 18 07/14/19 18:46 98.0 F 89 18 155/98 98 Intake and Output 07/14/19 07/15/19 07/15/19 22:59 06:59 14:59 Intake Total 0 Balance 0 Intake: Oral 0 Other: Voiding Method Toilet Toilet # Voids 2 Weight 89.046 kg 89 kg GENERAL EXAM: Alert, pleasant, 52-year-old obese white female on 3 L per nasal cannula, and frequent loose rhonchorous coughing comfortable in no apparent distress. HEAD: Normocephalic/atraumatic. EYES: Normal reaction of pupils, equal size. Conjunctiva pink, sclera white. NOSE: Clear with pink turbinates. THROAT: No erythema or exudates. NECK: No masses, no JVD, no thyroid enlargement, no adenopathy. CHEST: No chest wall deformity. Symmetrical expansion. LUNGS: Equal air entry with diffuse wheezes, and diminished air entry bilaterally CVS: Regular rate and rhythm, normal S1 and S2, no gallops, no murmurs, no rubs ABDOMEN: Soft, obese, tender in the right upper quadrant. No hepatosplenomegaly, normal bowel sounds, no guarding or rigidity. EXTREMITIES: No clubbing, no edema, no cyanosis, 2+ pulses and upper and lower extremities. MUSCULOSKELETAL: Muscle strength and tone normal. SPINE: No scoliosis or deformity SKIN: No rashes CENTRAL NERVOUS SYSTEM: Alert and oriented -3. No focal deficits, tone is normal in all 4 extremities. PSYCHIATRIC: Alert and oriented -3. Appropriate affect. Intact judgment and insight. Results - Laboratory Findings CBC and BMP: 07/14/19 19:50 07/14/19 19:50 Abnormal lab findings: Abnormal Labs 07/14/19 07/14/19 07/14/19 19:50 19:50 19:50 WBC 11.0 H Neutrophils # 8.8 H Carbon Dioxide 31 H BUN 20 H AST 108 H ALT 38 H Urine Protein Trace H Ur Leukocyte Esterase Small H Urine Bacteria Rare H Urine Mucus Many H - Diagnostic Findings Chest x-ray: report reviewed, image reviewed CT scan - chest: report reviewed, image reviewed Assessment and Plan Plan: Assessment: #1. Acute epigastric and right upper quadrant abdominal pain and nausea, with concern for acute cholecystitis, ultrasound of the gallbladder showed sludge in the gallbladder #2. Mild cough with some phlegm production, but chest x-ray showed no acute process, and CTA chest showed a solution of lymphadenopathy and bibasilar infiltrates previously seen, no acute process. Covid 19 testing is pending #3. History of severe persistent bronchial asthma #4. History of obstructive sleep apnea on CPAP therapy #5. History of tracheobronchomalacia with previous history of endobronchial stenting with placement of Chary-en-Y endobronchial stent with subsequent removal in view of recurrent pulmonary infections #6. Previous history of pneumonia #7. History of viral cardiomyopathy #8. Degenerative disc disease #9. Morbid obesity status post gastric surgery #10. Vitamin D deficiency #11. Hypothyroidism Plan: Continue breathing treatments, Pulmicort, and oral steroids, her asthma is stable at this time, she has a cough with some phlegm production, already covered with antibiotics, she is afebrile, hemodynamically stable, her Covid 19 testing is still pending, patient is scheduled for laparoscopic cholecystectomy today with Dr. Nuñez I performed a history & physical examination of the patient and discussed their management with my nurse practitioner, Amanda Stover. I reviewed the nurse practitioner's note and agree with the documented findings and plan of care. Lung sounds are positive for a few rhonchi. The findings and the impression was discussed with the patient. I attest to the documentation by the nurse practitioner. Time with Patient: Greater than 30
[2019-07-15] MEDS: PIPERACILLIN-TAZOBACTAM 3.375 GM in SODIUM CHLORIDE 0.9% 100 ML IVPB SCH ×3 (12:19→23:40)
[2019-07-15] MEDS: BENZOCAINE/MENTHOL LOZENG 1 EACH LOZENGE MUCOUS MEM PRN ×2 (15:28→18:54)
--- NOTE | 2019-07-15 15:37 | P.PN ---
Progress Note - Text Progress Note Date: 07/15/19 Please see history and physical for complete documentation. Patient was seen. Patient is a 54-year-old female has severe bronchial asthma, history of, tracheobronchial malacia with history of tracheal stent (on intermittent day- time CPAP), chronic hypoxic respiratory failure on 2 L nasal cannula continuous at home, and morbid obesity presented to the ED with complaints of abdominal pain. Patient underwent an extensive evaluation in the emergency room with a CT chest angiogram with a PE study showing no evidence of PE with no infiltrates noted. Right upper quadrant ultrasound revealed biliary sludge with Casarez sign positive. EKG revealed a normal sinus rhythm at 73 bpm with Q waves noted inferiorly. Laboratory evaluation revealed a WBC count of 11, hemoglobin 13.4, platelet is 210, sodium 142, potassium 4.0, CO2 31, BUN 20, creatinine 0.77, and troponin less than 0.012. Patient was admitted to the surgical service for possible cholecystitis with medicine on consult. Patient's asthma medications have been optimized. She is on Mucomyst, Pulmicort, DuoNeb scheduled and as needed, Singulair and prednisone. She is on supplemental O2 per NC to maintain O2 saturation greater than 92%. Pulmonology is on board. She is currently getting Zosyn. Plans for possible laparoscopic cholecystectomy by surgery. Nothing by mouth. She is pending clinical improvement. Likely DC in 2-3 days.
[2019-07-15] MEDS ORDERED: DEXAMETHASONE SOD PHOSPHATE 4 MG/ML 1 ML VIAL IV ONE (21:00)
[2019-07-15] MEDS ORDERED: SCOPOLAMINE 1.5MG/72HR PATCH TRANSDERM ONE (21:00)
[2019-07-15] MEDS ORDERED: ONDANSETRON 4 MG/2 ML VIAL IVP ONE (21:00)
[2019-07-15] MEDS ORDERED: PROPOFOL 10 MG/ML 20 ML VIAL IV ONE (21:27)
[2019-07-15] MEDS ORDERED: ROCURONIUM BROMIDE 10 MG/ML 5 ML VIAL IV ONE (21:27)
[2019-07-15] MEDS ORDERED: LIDOCAINE 1% INJ 10MG/ML (20 ML MDV) ONE (21:27)
[2019-07-15] MEDS ORDERED: fentaNYL (PF) 50 MCG/ML 2 ML AMP ONE (21:27)
[2019-07-15] MEDS ORDERED: DEXAMETHASONE SOD PHOS (MDV) 100 MG/10 ML VIAL ONE (21:27)
[2019-07-15] MEDS ORDERED: GLYCOPYRROLATE 0.2 MG/ML 2 ML VIAL ONE (21:27)
[2019-07-15] MEDS ORDERED: SUCCINYLCHOLINE CHLORIDE 100 MG/5 ML SYR IV ONE (21:27)
[2019-07-15] MEDS ORDERED: NEOSTIGMINE 1 MG/ML 10 ML VIAL ONE (21:27)
[2019-07-15] MEDS ORDERED: SODIUM CHLORIDE 0.9% 1,000 ML IV ONE (21:34)
[2019-07-15] MEDS ORDERED: BUPIVACAIN-EPI 0.25%-1:200,000 30 ML VIAL SQ ONE (21:56)
--- NOTE | 2019-07-15 22:15 | P.OP ---
Date of Procedure: 07/15/19 Preoperative Diagnosis: Cholecystitis Postoperative Diagnosis: Cholecystitis Procedure(s) Performed: Laparoscopic cholecystectomy Anesthesia: KARLIE Surgeon: Curtis Nuñez Estimated Blood Loss (ml): 5 Pathology: other (Gallbladder) Condition: stable Disposition: PACU Description of Procedure: The patient was placed on the operating table. The patient received a general endotracheal tube anesthesia. The patients abdomen was prepped and draped in the usual sterile fashion. Through an infraumbilical stab incision, the fascia of the anterior abdominal wall was grasped with a pair of Kochers and then the Veress needle was placed in the peritoneal cavity. Position of the Veress needle was confirmed with positive drop test. The abdomen was then insufflated. After adequate insufflation, the 10 mm trocar was placed in the peritoneal cavity. Following this the laparoscope was placed in the peritoneal cavity. The patient was placed in the head-up, right side up position and then a 5 mm trocar was placed in the right lateral and right subcostal position under direct visualization. A 8 mm trocar was placed in the epigastric position. The gallbladder was grasped in the fundus and infundibulum. Traction on the gallbladder was placed in the lateral and the cephalad positions. The triangle of Calot was visualized.. The cystic duct was bluntly dissected until the union of the cystic duct and common bile duct was seen. A critical view of safety was achieved. The cystic duct was then divided and sealed with the Harmonic scissors. A PDS Endoloop was then placed throughout the cystic duct stump. The cystic artery divided and sealed with the Harmonic scissors. The gallbladder was then removed from the liver bed using Harmonic scissors. The gallbladder was then extracted through the epigastric port site. Operative field was checked for any bleeding spots and Harmonic scissors was used to coagulate the liver bed. The abdomen was irrigated. The trocars were removed. The skin was closed using interrupted 3-0 Vicryl suture. Dermabond dressing were applied. The patient tolerated the procedure well.
[2019-07-15] MEDS ORDERED: LACTATED RINGERS 1,000 ML IV ONE (22:32)
[2019-07-15] MEDS ORDERED: HYDROmorphone 1 MG/ML 1 ML SYRINGE IVP ONE ×4 (22:35→22:50)
[2019-07-15] MEDS ORDERED: HYDROmorphone 0.5 MG/0.5 ML SYRINGE IVP ONE (23:09)
[2019-07-16] MEDS: HYDROmorphone 0.5 MG/0.5 ML SYRINGE IVP PRN ×3 (03:59→14:52)
[2019-07-16] MEDS: IPRATROPIUM-ALBUTEROL 3 ML NEB INHALATION SCH ×4 (04:07→15:33)
[2019-07-16 06:17] LABS: HCT 36.8 % (34.0-46.0); HGB 11.5 gm/dL (11.4-16.0); MCH 29.3 pg (25.0-35.0); MCHC 31.3 g/dL (31.0-37.0); MCV 93.8 fL (80.0-100.0); Mean Platelet Volume 8.6; Platelet Count 158 k/uL (150-450); RBC 3.92 m/uL (3.80-5.40); RDW 13.2 % (11.5-15.5); WBC 9.6 k/uL (3.8-10.6)
[2019-07-16 07:02] LABS: African American GFR (CKD) >90 (>60 ml/min/1.73 sqM); Anion Gap 6 mmol/L; Blood Urea Nitrogen 14 mg/dL (7-17); Calcium 8.6 mg/dL (8.4-10.2); Carbon Dioxide 27 mmol/L (22-30); Chloride 107 mmol/L (98-107); Glucose 149 mg/dL (74-99); Non-African American GFR(CKD) >90 (>60 ml/min/1.73 sqM); Potassium 4.3 mmol/L (3.5-5.1); Sodium 140 mmol/L (137-145)
[2019-07-16] MEDS: ACETYLCYSTEINE 800 MG/4 ML VIAL INHALATION SCH (07:24)
[2019-07-16] MEDS: BUDESONIDE 0.5 MG/2 ML NEBU INHALATION PRN (07:25)
[2019-07-16] MEDS: PIPERACILLIN-TAZOBACTAM 3.375 GM in SODIUM CHLORIDE 0.9% 100 ML IVPB SCH ×2 (08:32→15:23)
[2019-07-16] MEDS: VENLAFAXINE HCL ER 75 MG CAP PO SCH (08:33)
[2019-07-16] MEDS: ISOSORBIDE MONONITRATE ER 30 MG TAB.ER.24H PO SCH (08:34)
[2019-07-16] MEDS: METOPROLOL SUCCINATE (ER) 25 MG TAB.ER.24H PO SCH (08:34)
[2019-07-16] MEDS: predniSONE 20 MG TAB PO SCH (08:34)
[2019-07-16] MEDS: PANTOPRAZOLE 40 MG TABLET PO SCH ×2 (08:34→15:26)
[2019-07-16] MEDS: MONTELUKAST 10 MG TAB PO SCH (08:34)
[2019-07-16] MEDS: BENZOCAINE/MENTHOL LOZENG 1 EACH LOZENGE MUCOUS MEM PRN ×2 (08:41→14:52)
[2019-07-16] MEDS ORDERED: ENOXAPARIN 40 MG/0.4 ML SYRINGE SQ SCH (09:00)
[2019-07-16 09:25] LABS: ALT 46 U/L (4-34); AST 49 U/L (14-36)
--- NOTE | 2019-07-16 10:25 | P.PN ---
Subjective Progress Note Date: 07/16/19 Principal diagnosis: Cholecystitis Patient was seen and examined. No acute events overnight. Underwent laparoscopic cholecystectomy yesterday. She is postop day 1. Tolerating regular diet well. Patient reports well-controlled pain, superficial at the site of incision. No bowel movement or passing gas. No nausea or vomiting. She denies any chest pain, shortness breath or palpitations. Objective - Vital Signs Vital signs: Vital Signs Temp 98.1 F 07/16/19 08:26 Pulse 76 07/16/19 08:26 Resp 20 07/16/19 08:26 BP 102/58 07/16/19 08:26 Pulse Ox 98 07/16/19 08:26 Intake & Output 07/15/19 07/16/19 07/16/19 18:59 06:59 18:59 Intake Total 9160 365 4757 Output Total 600 10 300 Balance 400 590 820 Weight 90.5 kg Intake: IV 600 Intake, IV Titration 1000 1000 Amount Piperacillin-Tazobactam 3 100 100 .375 gm In Sodium Chloride 0.9% 100 ml @ 25 mls/hr IVPB Q8HR [facility] Rx# :[id number] Sodium Chloride 0.9% 1, 900 900 000 ml @ 75 mls/hr IV . [id number] [facility] Rx#:[id number] Oral 120 Output: Urine 600 300 Estimated Blood Loss 10 Other: Voiding Method Toilet Toilet Toilet # Voids 1 2 1 - Exam General: [non toxic], [no distress], [appears at stated age] Derm: [warm], [dry] Head: [atraumatic], [normocephalic], [symmetric] Eyes: [EOMI], [no lid lag], [anicteric sclera] Mouth: [no lip lesion], [mucus membranes moist] Cardiovascular: [S1S2 reg], [no murmur], [positive DP pulse bilateral], Lungs: [CTA bilateral], [no rhonchi, no rales] , [upper airway stridor] Abdominal: [soft], [ nontender to palpation], [no guarding], [no appreciable organomegaly], [laparoscopic scars healing well] Ext: [no gross muscle atrophy], [no edema], [no contractures] Neuro: [no focal neuro deficits] Psych: [Alert], [oriented], [appropriate affect] - Labs CBC & Chem 7: 07/16/19 05:21 07/16/19 05:21 Labs: Abnormal Lab Results - Last 24 Hours (Table) 07/16/19 07/16/19 Range/Units 05:21 05:21 Glucose 149 H (74-99) mg/dL AST 49 H (14-36) U/L ALT 46 H (4-34) U/L Assessment and Plan Assessment: Mild acute exacerbation of bronchial asthma with history of tracheomalacia -Continue with nocturnal BiPAP -Continue with home Pulmicort and Mucomyst -Pulmonology on board -[facility] -Complete a total of 5 days prednisone 40 mg by mouth Chronic hypoxic respiratory failure -Continue supplemental oxygen Cholecystitis -She is postop day 1 laparoscopic cholecystectomy -Regular diet and advance as tolerated -Continue Zosyn -Management as per general surgery Chronic conditions: Hypertension, GERD, iron deficiency anemia -Continue with home meds [Patient is progressing well after cholecystectomy. Tolerating regular diet. Tracheomalacia and asthma is back to baseline as per patient. Anticipate discharge today based on surgery recommendations.]
--- NOTE | 2019-07-16 11:37 | P.PN ---
Subjective Progress Note Date: 07/16/19 Principal diagnosis: Acute cholecystitis, status post laparoscopic cholecystectomy 54-year-old white female patient of Dr. Melo, with known history of tracheobronchomalacia, severe persistent bronchial asthma, and obstructive sleep apnea. Patient has a history of previous endobronchial Chary-en-Y stenting with subsequent removal in view of recurrent bacterial infections. Patient follows up with Dr. Johnson in the pulmonary office. Other medical history includes hypothyroidism, morbid obesity, history of viral cardiomyopathy, vitamin D deficiency, iron deficiency, history of bariatric surgery, history of spinal stenosis. Patient presents to theemergency department on the 07/14/2019 with complaints of abdominal pain and nausea. In addition patient has a cough with some yellow sputum production. Ultrasound of the abdomen revealed some sludge in the gallbladder, with suspicion for cholecystitis. Chest x-ray showed no acute pulmonary process. Lab work showed mild leukocytosis, with a white blood cell count of 11, hemoglobin of 13.4, sodium of 142, potassium is 4.0, chloride is 105, CO2 31, BUN is 20 creatinine 0.7, AST is 108, ALT is 38, alk phos is 76, troponin is less than 0.012, amylase was 45, lipase is 167, urinalysis positive for trace protein, and small amount of leuks, but negative for any sign of bacteria. Afebrile, hemodynamically stable. CT angios the chest was obtained showing no evidence of pulmonary embolism, there is clearing of the subcarinal bronchial lymphadenopathy compared to old exam, mild atelectasis at the lung bases which is improved compared to old exam, and clearing of the interstitial mild infiltrates in both lower lobes. Patient was evaluated by surgical services. She still having abdominal tenderness in the right upper quadrant, and nausea but no vomiting. Patient was started on IV Zosyn and she is scheduled for laparoscopic cholecystectomy today with Dr. Nuñez On 07/16/2019 patient seen in follow-up on selective care unit, this is postoperative day 1, status post upper scopic cholecystectomy for acute cholecystitis, patient is doing well, she is on 2 L of oxygen her pulse ox is 97%, she is afebrile, she is on Zosyn for empiric antibiotic coverage, abdomen is soft, her incisional pain is fairly well controlled with IV pain medications, no nausea, no vomiting, no worsening dyspnea, lung sounds are positive for a a few rhonchi, only occasional cough, no significant congestion. Today's labs hav e been reviewed, CBC within normal limits, electrolytes and renal profile are within normal limits, AST down to 49, ALT is 46, doing well, and we will obtain the incentive spirometer. Objective - Vital Signs Vital signs: Vital Signs Temp 98.1 F 07/16/19 08:26 Pulse 72 07/16/19 10:57 Resp 20 07/16/19 08:26 BP 102/58 07/16/19 08:26 Pulse Ox 98 07/16/19 08:26 Intake & Output 07/15/19 07/16/19 07/16/19 18:59 06:59 18:59 Intake Total 8539 511 9387 Output Total 600 10 300 Balance 400 590 820 Weight 90.5 kg Intake: IV 600 Intake, IV Titration 1000 1000 Amount Piperacillin-Tazobactam 3 100 100 .375 gm In Sodium Chloride 0.9% 100 ml @ 25 mls/hr IVPB Q8HR [facility] Rx# :[id number] Sodium Chloride 0.9% 1, 900 900 000 ml @ 75 mls/hr IV . [id number] [facility] Rx#:[id number] Oral 120 Output: Urine 600 300 Estimated Blood Loss 10 Other: Voiding Method Toilet Toilet Toilet # Voids 1 2 1 - Exam GENERAL EXAM: Alert, pleasant, 52-year-old obese white female on 2 L per nasal cannula with pulse ox of 97%, and frequent loose rhonchorous coughing comfortable in no apparent distress. HEAD: Normocephalic/atraumatic. EYES: Normal reaction of pupils, equal size. Conjunctiva pink, sclera white. NOSE: Clear with pink turbinates. THROAT: No erythema or exudates. NECK: No masses, no JVD, no thyroid enlargement, no adenopathy. CHEST: No chest wall deformity. Symmetrical expansion. LUNGS: Equal air entry with diffuse wheezes, and diminished air entry bilaterall y CVS: Regular rate and rhythm, normal S1 and S2, no gallops, no murmurs, no rubs ABDOMEN: Soft, obese, with laparascopic surg incisions at the umbilicus, and abdomen. No hepatosplenomegaly, normal bowel sounds, no guarding or rigidity. EXTREMITIES: No clubbing, no edema, no cyanosis, 2+ pulses and upper and lower extremities. MUSCULOSKELETAL: Muscle strength and tone normal. SPINE: No scoliosis or deformity SKIN: No rashes CENTRAL NERVOUS SYSTEM: Alert and oriented -3. No focal deficits, tone is normal in all 4 extremities. PSYCHIATRIC: Alert and oriented -3. Appropriate affect. Intact judgment and insight. - Labs CBC & Chem 7: 07/16/19 05:21 07/16/19 05:21 Labs: Abnormal Lab Results - Last 24 Hours (Table) 07/16/19 07/16/19 Range/Units 05:21 05:21 Glucose 149 H (74-99) mg/dL AST 49 H (14-36) U/L ALT 46 H (4-34) U/L Assessment and Plan Plan: Assessment: #1. Acute epigastric and right upper quadrant abdominal pain and nausea, with concern for acute cholecystitis, ultrasound of the gallbladder showed sludge in the gallbladder, status post laparoscopic cholecystectomy, postoperative day 1 #2. Mild cough with some phlegm production, but chest x-ray showed no acute process, and CTA chest showed resolution of lymphadenopathy and bibasilar infiltrates previously seen, no acute process. Covid 19 testing is pending #3. History of severe persistent bronchial asthma #4. History of obstructive sleep apnea on CPAP therapy #5. History of tracheobronchomalacia with previous history of endobronchial stenting with placement of Chary-en-Y endobronchial stent with subsequent removal in view of recurrent pulmonary infections #6. Previous history of pneumonia #7. History of viral cardiomyopathy #8. Degenerative disc disease #9. Morbid obesity status post gastric surgery #10. Vitamin D deficiency #11. Hypothyroidism Plan: Patient is doing well, incentive spirometry to the bedside, encourage deep breathing and coughing, continue with breathing treatments, maintain pain control, encourage the patient to sit up in the chair, doing well, no acute events overnight. I performed a history & physical examination of the patient and discussed their management with my nurse practitioner, Amanda Stover. I reviewed the nurse practitioner's note and agree with the documented findings and plan of care. Lung sounds are positive for a few rhonchi. The findings and the impression was discussed with the patient. I attest to the documentation by the nurse practitioner. Time with Patient: Less than 30
--- NOTE | 2019-07-16 12:23 | P.DS ---
Providers Date of admission: 07/14/19 20:29 Expected date of discharge: 07/16/19 Attending physician: Curtis Nuñez Consults: 07/14/19 23:17 Consult Physician Stat Consulting Provider: Parish Johnson Consult Reason/Comments: tracheobronchomalacia, asthma, shortness of breath Do you want consulting provider notified?: Yes 07/14/19 23:27 Consult Physician Routine Consulting Provider: Irasema Victor Consult Reason/Comments: medical management Do you want consulting provider notified?: Yes Primary care physician: [facility] Course: 54-year-old female who presented to the emergency room with chief complaint of abdominal pain. Patient was found to have acute cholecystitis. She underwent laparoscopic cholecystectomy with Dr. Nuñez. Patient is doing well postoperatively without any immediate complications. She is tolerating diet without nausea or vomiting. Pain is controlled on oral medications. Vital signs are stable. She is stable for discharge home today. Please see EMR for further hospital course details. Discharge diagnosis: 1. Abdominal pain 2. Acute cholecystitis Nurse practitioner note has been reviewed by physician. Signing provider agrees with the documented findings, assessment, and plan of care. Patient Condition at Discharge: Stable Plan - Discharge Summary Discharge Rx Participant: No New Discharge Prescriptions: New predniSONE [Deltasone] 40 mg PO DAILY #8 tab Hydrocodone/Acetaminophen [[place] 5-325] 1 tab PO Q6HR PRN #10 tab PRN Reason: Pain Continue Montelukast [Singulair] 10 mg PO DAILY Vitamin B Complex 1 cap PO DAILY Multivitamins, Thera [Multivitamin (formulary)] 1 tab PO DAILY Cholecalciferol [Vitamin D3 (25 Mcg = 1000 Iu)] 5,000 unit PO DAILY Venlafaxine HCl ER [Effexor XR] 75 mg PO DAILY Budesonide [Pulmicort] 0.5 mg INHALATION RT-BID PRN PRN Reason: Shortness Of Breath L.acidoph,Paracasei, B.lactis [Probiotic] 1 cap PO DAILY Calcium Polycarbophil [Fibercon] 625 mg PO DAILY PRN PRN Reason: Constipation Acetaminophen Tab [Tylenol] 500 mg PO BID PRN PRN Reason: Pain Metoprolol Succinate (ER) [Toprol XL] 25 mg PO DAILY Isosorbide Mononitrate [Isosorbide Mononitrate ER] 30 mg PO DAILY Ipratropium-Albuterol Nebulize [Duoneb 0.5 mg-3 mg/3 ml Soln] 3 ml INHALATION RT-QID PRN PRN Reason: Shortness Of Breath Acetylcysteine [Mucomyst] 800 mg INHALATION RT-DAILY Naltrexone HCl/Bupropion HCl [Contrave ER 8-90 mg Tablet] 2 tab PO BID Omeprazole 40 mg PO PC-BID #60 capsule. Levalbuterol Tartrate [Xopenex Hfa Inhaler] 2 puff INHALATION RT-Q6H PRN PRN Reason: Shortness Of Breath Discharge Medication List Montelukast [Singulair] 10 mg PO DAILY 04/16/17 [History] Vitamin B Complex 1 cap PO DAILY 02/15/18 [History] Budesonide [Pulmicort] 0.5 mg INHALATION RT-BID PRN 08/23/18 [History] Cholecalciferol [Vitamin D3 (25 Mcg = 1000 Iu)] 5,000 unit PO DAILY 08/23/18 [History] L.acidoph,Paracasei, B.lactis [Probiotic] 1 cap PO DAILY 08/23/18 [History] Multivitamins, Thera [Multivitamin (formulary)] 1 tab PO DAILY 08/23/18 [History] Venlafaxine HCl ER [Effexor XR] 75 mg PO DAILY 08/23/18 [History] Acetaminophen Tab [Tylenol] 500 mg PO BID PRN 09/26/18 [History] Calcium Polycarbophil [Fibercon] 625 mg PO DAILY PRN 09/26/18 [History] Isosorbide Mononitrate [Isosorbide Mononitrate ER] 30 mg PO DAILY 09/26/18 [History] Metoprolol Succinate (ER) [Toprol XL] 25 mg PO DAILY 09/26/18 [History] Acetylcysteine [Mucomyst] 800 mg INHALATION RT-DAILY 10/29/18 [History] Ipratropium-Albuterol Nebulize [Duoneb 0.5 mg-3 mg/3 ml Soln] 3 ml INHALATION RT-QID PRN 10/29/18 [History] Naltrexone HCl/Bupropion HCl [Contrave ER 8-90 mg Tablet] 2 tab PO BID 01/23/19 [History] Omeprazole 40 mg PO PC-BID #60 capsule. 03/29/19 [Rx] Levalbuterol Tartrate [Xopenex Hfa Inhaler] 2 puff INHALATION RT-Q6H PRN 07/14/19 [History] Hydrocodone/Acetaminophen [[place] 5-325] 1 tab PO Q6HR PRN #10 tab 07/16/19 [Rx] predniSONE [Deltasone] 40 mg PO DAILY #8 tab 07/16/19 [Rx] Follow up Appointment(s)/Referral(s): Andrews Melo [Primary Care Provider] - 1-2 days (I AM UNABLE TO MAKE A FOLLOW UP APPOINTENT. PLEASE CALL TO MAKE [facility] FOLLOW UP WHEN OFFICES ARE OPEN. OFFICE HOURS ARE; SUNDAY/SUNDAY [phone] OFFICES ARE CLOSED; SUNDAY THROUGH SUNDAY. ) Curtis Nuñez MD [STAFF PHYSICIAN] - 07/24/19 2:20 pm (SUNDAY ) Patient Instructions/Handouts: *Surgery [facility] - Laparoscopic Cholecystectomy Discharge Instructions Activity/Diet/Wound Care/Special Instructions: No driving while taking [facility] No lifting over 10 pounds You may shower. No soaking or tub baths Very light activity until you are reevaluated at your follow up appointment with your surgeon
[2019-07-16] MEDS: SODIUM CHLORIDE 0.9% 1,000 ML IV SCH (14:59)
[2019-07-16 15:14] VITALS: BP 92/52; RESP 18; TEMP 98
[2019-07-16 15:49] VITALS: PULSE 77
== END 2019-07-16 18:05 | disposition home or self-care (01) ==
LOC: EC 18:35 → 6PED 20:29 → 3SCARD 07-15 02:15
PROVIDERS: ADMIT Surgery; ATTEND Surgery
DX: K80.00 Calculus of gallbladder with acute cholecystitis without obstruction (principal); D50.9 Iron deficiency anemia, unspecified; E03.9 Hypothyroidism, unspecified; E55.9 Vitamin D deficiency, unspecified; E66.01 Morbid (severe) obesity due to excess calories; F32.9 Major depressive disorder, single episode, unspecified; F41.9 Anxiety disorder, unspecified; I10 Essential (primary) hypertension; I42.9 Cardiomyopathy, unspecified; J39.8 Other specified diseases of upper respiratory tract; J45.51 Severe persistent asthma with (acute) exacerbation; J44.9 Chronic obstructive pulmonary disease, unspecified; J96.11 Chronic respiratory failure with hypoxia; K21.9 Gastro-esophageal reflux disease without esophagitis; Z79.899 Other long term (current) drug therapy; Z80.49 Family history of malignant neoplasm of other genital organs; Z82.49 Family history of ischemic heart disease and other diseases of the circulatory system; Z82.62 Family history of osteoporosis; Z83.3 Family history of diabetes mellitus; Z87.01 Personal history of pneumonia (recurrent); Z90.710 Acquired absence of both cervix and uterus; Z90.721 Acquired absence of ovaries, unilateral; Z98.1 Arthrodesis status; Z98.84 Bariatric surgery status; Z82.61 Family history of arthritis; Z88.6 Allergy status to analgesic agent; Z88.1 Allergy status to other antibiotic agents; Z91.013 Allergy to seafood; Z91.018 Allergy to other foods
CPT/HCPCS: 47562; 96376; 96375 ×2; 96374; 99285; 36415; 94660; 94640 ×5; 93005; 88304; 80053; 80048; 82150; 83690; 84450; 84460; 84484; 85025; 85027; 81001; 81025; 87635; 71046; 76705; 71275; G0378 ×4; J2543 ×2; J1100 ×2; J2710; J2405 ×2; J2001; J1650; J3010; J1170 ×4; J0330; J2704; J7512 ×2; Q9967

== ENCOUNTER → 2019-07-29 | Outpatient (CLI) | payer BC | END | disposition home or self-care (01) | LOC: LABWHC1 08:09 | PROVIDERS: ATTEND Family Medicine | DX: R50.9 Fever, unspecified (principal); R07.0 Pain in throat; R51 Headache ==

== ENCOUNTER → 2019-08-14 | Outpatient (CLI) | payer BC ==
--- NOTE | 2019-08-14 15:14 | XR ---
EXAMINATION TYPE: XR lumbosacral spine min 4V DATE OF EXAM: 08/14/2019 CLINICAL HISTORY: Low back pain. TECHNIQUE: Frontal, lateral, and oblique images of the lumbar spine are obtained. COMPARISON: None FINDINGS: There are 5 lumbar type vertebral bodies identified. The lumbar spine shows satisfactory alignment without evidence of acute fracture or dislocation. Posterior interpedicular rods and screws transfix L4-S1 levels bilaterally with metallic disc material at L4-L5 and L5-S1 levels noted. Verte bral body height and disc space height above the L4 level are satisfactory. Oblique images are within normal limits. Overlying soft tissues are unremarkable. IMPRESSION: As above.
== END | disposition home or self-care (01) ==
LOC: RADXRMAIN 14:37
PROVIDERS: ATTEND Family Medicine
DX: Z98.1 Arthrodesis status (principal); M54.5 Low back pain
CPT/HCPCS: 72110

== ENCOUNTER 2019-08-21 08:09 | Day surgery (SDC) | payer BC ==
[2019-08-19 15:26] VITALS: BMI 38.7
[2019-08-21 08:48] VITALS: TEMP 98.5
[2019-08-21] MEDS ORDERED: LACTATED RINGERS 1,000 ML IV ONE (08:55)
[2019-08-21] MEDS ORDERED: ONDANSETRON 4 MG/2 ML VIAL ONE (08:57)
[2019-08-21] MEDS ORDERED: ACETAMINOPHEN TAB 500 MG TAB ONE (08:57)
[2019-08-21] MEDS ORDERED: ONDANSETRON 4 MG/2 ML VIAL IVP ONE (08:58)
[2019-08-21] MEDS ORDERED: ACETAMINOPHEN TAB 500 MG TAB PO ONE (08:58)
[2019-08-21] MEDS ORDERED: PROPOFOL 10 MG/ML 20 ML VIAL IV ONE (09:02)
--- NOTE | 2019-08-21 09:05 | P.GSHP ---
History of Present Illness H&P Date: 08/21/19 Chief Complaint: GERD, history of colon polyps This 52-year-old female who presents today for EGD colonoscopy. Patient history of colon polyps. She's had previous gastric sleeve. She's had GERD. Past Medical History Past Medical History: Asthma, COPD, GERD/Reflux, Memory Impairment, Osteoarthritis (OA), Pneumonia, Sleep Apnea/CPAP/BIPAP, Thyroid Disorder Additional Past Medical History / Comment(s): severe tracheobronchomalacia , hx cardiomyopathy, occasional tachycardia, hx near syncope when she had the flu and with a dental procedure, thyroid nodules, Spinal stenosis. Vitamin D deficiency, iron deficiency anemia, migraines, hx low platelets, hiatal hernia, hx chronic gastritis, chronic bronchitis History of Any Multi-Drug Resistant Organisms: None Reported Date of last positivie culture/infection: 03/2018 MDRO Source:: Lung Past Surgical History: Appendectomy, Back Surgery, Bariatric Surgery, Section, Heart Catheterization, Hysterectomy, Orthopedic Surgery, Tonsillectomy Additional Past Surgical History / Comment(s): gastric sleeve with hiatal hernia repair, spinal fusion/decompression L4-L5 and S1, bilateral shoulder arthroscopies, 3 laparotomies -ovarian cyst/adhesions, 2 D&Cs, lipoma removed from left side of back, colonoscopy, EGD's, trachea stent/later removed,, bronchoscopies x 10 Past Anesthesia/Blood Transfusion Reactions: Motion Sickness, Postoperative Nausea & Vomiting (PONV) Additional Past Anesthesia/Blood Transfusion Reaction / Comment(s): difficult iv start, DIFF intubation Smoking Status: Never smoker - Past Family History Father Family Medical History: Cancer Additional Family Medical History / Comment(s): . Mother Family Medical History: Cancer Additional Family Medical History / Comment(s): . Brother(s) Family Medical History: Pulmonary Embolus Medications and Allergies Home Medications Medication Instructions Recorded Confirmed Type Montelukast [Singulair] 10 mg PO DAILY 04/16/17 08/21/19 History Vitamin B Complex 1 cap PO DAILY 02/15/18 08/21/19 History Budesonide [Pulmicort] 0.5 mg INHALATION BID PRN 08/23/18 08/21/19 History Cholecalciferol [Vitamin D3 (25 5,000 unit PO DAILY 08/23/18 08/21/19 History Mcg = 1000 Iu)] L.acidoph,Paracasei, B.lactis 1 cap PO DAILY 08/23/18 08/21/19 History [Probiotic] Multivitamins, Thera [Multivitamin 1 tab PO DAILY 08/23/18 08/21/19 History (formulary)] Venlafaxine HCl ER [Effexor XR] 75 mg PO DAILY 08/23/18 08/21/19 History Acetaminophen Tab [Tylenol] 500 mg PO BID PRN 09/26/18 08/21/19 History Calcium Polycarbophil [Fibercon] 625 mg PO DAILY PRN 09/26/18 08/21/19 History Isosorbide Mononitrate [Isosorbide 15 mg PO DAILY 09/26/18 08/21/19 History Mononitrate ER] Metoprolol Succinate (ER) [Toprol 25 mg PO DAILY 09/26/18 08/21/19 History XL] Acetylcysteine [Mucomyst] 800 mg INHALATION DAILY 10/29/18 08/21/19 History Ipratropium-Albuterol Nebulize 3 ml INHALATION QID PRN 10/29/18 08/21/19 History [Duoneb 0.5 mg-3 mg/3 ml Soln] Naltrexone HCl/Bupropion HCl 2 tab PO BID 01/23/19 08/21/19 History [Contrave ER 8-90 mg Tablet] Levalbuterol Tartrate [Xopenex Hfa 2 puff INHALATION Q6HR PRN 07/14/19 08/21/19 History Inhaler] Hydrocodone/Acetaminophen [[place] 1 tab PO Q6HR PRN #10 tab 07/16/19 08/21/19 Rx 5-325] Omeprazole 40 mg PO DAILY 08/19/19 08/21/19 History Allergies Allergy/AdvReac Type Severity Reaction Status Date / Time ciprofloxacin [From Cipro] Allergy Itching Verified 08/21/19 08:31 gluten Allergy Abdominal Verified 08/21/19 08:31 Pain/HEADACHES NSAIDS (Non-Steroidal AdvReac Abdominal Verified 08/21/19 08:31 Anti-Inflamma Pain shellfish derived [Shellfish] AdvReac Vomiting Verified 08/21/19 08:31 Surgical - Exam Vital Signs Temp Pulse Resp BP Pulse Ox 98.5 F 78 16 118/56 98 08/21/19 08:28 08/21/19 08:28 08/21/19 08:28 08/21/19 08:28 08/21/19 08:28 - General well developed, well nourished, no distress - Eyes PERRL - ENT normal pinna - Neck no masses - Respiratory normal expansion - Cardiovascular Rhythm: regular - Abdomen Abdomen: soft, non tender Assessment and Plan Assessment: GERD, history of colon polyps. We'll perform EGD colonoscopy.
--- NOTE | 2019-08-21 09:24 | P.OP ---
Date of Procedure: 08/21/19 Preoperative Diagnosis: GERD History: Polyps Postoperative Diagnosis: Antral gastritis Duodenal biopsy Left colon polyp Procedure(s) Performed: Colonoscopy Anesthesia: MAC Surgeon: Curtis Nuñez Pathology: other (Duodenum, antrum, left colon polyp) Condition: stable Disposition: PACU Description of Procedure: The patient's placed on the endoscopy table in the lateral position. She received IV sedation. The gastroscope placed oropharynx and passed in the esophagus and stomach. Scope then placed through the pylorus. The first and second portion of duodenum appeared normal. Due to the patient's history of gluten sensitivity a biopsy duodenum was performed. Scope was then brought back the antrum this was mildly inflamed. A biopsies performed. The scope was the scope was then brought back through the gastric sleeve. There was no evidence of any obstruction or stricture. The GE junction was at 40 cm. The distal esophagus appeared normal. The proximal esophagus appeared normal. Scope was withdrawn for patient. Next digital rectal exam was performed which revealed hemorrhoids. Flexible colonoscope was then placed patient anus passed throughout the entire colon. The ileocecal valve was visualized. The cecum, ascending and transverse colon appeared normal. The descending and sigmoid colon appeared normal. The scope was then brought back the rectum and this appeared normal. Scope was withdrawn for patient.
[2019-08-21 09:53] VITALS: BP 98/53; PULSE 75; RESP 16
== END 2019-08-21 10:19 | disposition home or self-care (01) ==
LOC: ORWHC2ENDO 08:09
PROVIDERS: ATTEND Surgery
DX: K21.9 Gastro-esophageal reflux disease without esophagitis (principal); K29.50 Unspecified chronic gastritis without bleeding; K64.9 Unspecified hemorrhoids; K51.40 Inflammatory polyps of colon without complications; J98.09 Other diseases of bronchus, not elsewhere classified; Z80.9 Family history of malignant neoplasm, unspecified; J44.9 Chronic obstructive pulmonary disease, unspecified; M19.90 Unspecified osteoarthritis, unspecified site; R41.3 Other amnesia; G47.30 Sleep apnea, unspecified; E07.9 Disorder of thyroid, unspecified; I42.9 Cardiomyopathy, unspecified; E55.9 Vitamin D deficiency, unspecified; Z79.51 Long term (current) use of inhaled steroids; Z86.19 Personal history of other infectious and parasitic diseases; Z90.49 Acquired absence of other specified parts of digestive tract; Z90.710 Acquired absence of both cervix and uterus; Z98.890 Other specified postprocedural states; Z90.89 Acquired absence of other organs; Z99.89 Dependence on other enabling machines and devices; Z98.84 Bariatric surgery status; Z87.19 Personal history of other diseases of the digestive system; Z98.1 Arthrodesis status; Z79.891 Long term (current) use of opiate analgesic; Z79.899 Other long term (current) drug therapy; Z88.1 Allergy status to other antibiotic agents; Z91.02 Food additives allergy status; Z88.6 Allergy status to analgesic agent; Z91.013 Allergy to seafood; Z86.010 Personal history of colon polyps
CPT/HCPCS: 88305; 45385; 43239; J2405; J2704

== ENCOUNTER → 2019-11-11 | Day surgery (SDC) | payer BC ==
[2019-11-07 12:16] VITALS: BMI 39.8
[~2019-11-11] MED LIST changes: -ACETAMINOPHEN TAB 500 MG TAB PO ONE; +IPRATROPIUM-ALBUTEROL 3 ML NEB INHALATION STA; -LIDOCAINE 1% 20 ML VIAL (10MG/ML) FOR IV START INTRADERMA PRN; +LIDOCAINE 1% INJ 10MG/ML (20 ML MDV) ONE; +LIDOCAINE 2% INJ 20 MG/ML INTRATRACH ONE; +MIDAZOLAM 2 MG/2 ML VIAL ONE; +fentaNYL (PF) 50 MCG/ML 2 ML AMP IVP ONE
[2019-11-11 11:40] VITALS: TEMP 96.8
--- NOTE | 2019-11-11 13:04 | P.PCN ---
Date of Procedure: 11/11/19 Preoperative Diagnosis: Severe tracheal bronchomalacia Postoperative Diagnosis: Severe tracheobronchomalacia Procedure(s) Performed: Flexible bronchoscopy, BAL of the left upper lobe/lingular segment Anesthesia: MAC Surgeon: Parish Johnson Estimated Blood Loss (ml): 0 Pathology: none sent Condition: stable Disposition: same day Operative Findings: This is a flexible bronchoscopy for airway inspection bronchioloalveolar lavage Preop diagnosis: Severe tracheal bronchomalacia Postoperative diagnosis: Severe tracheal bronchomalacia, no evidence of any respiratory secretions. Normal upper airway structures This procedure was done under conscious sedation with anesthetic agents being administered by anesthesia the bedside. The flexible bronchoscope was introduced to the right nostril for the presence of the upper airway. Examination of the posterior oropharynx, larynx, to go to the vocal cords was done and upper airway structures were all within normal limits. Vocal cords were symmetric in the midline and there was no nodular lesions. No upper airway secretions. No abnormalities and acidosis or arytenoids are vallecula. A total of 2 mL of 1% lidocaine was applied to the vocal cords and following that the bronchoscope was introduced into the subglottic trachea and an airway inspection was done. The entire trachea was visualized. Following that the bronchoscope was moved to the right mainstem bronchus, right upper lobe bronchus, bronchus intermedius, right middle lobe bronchus, right lower lobe bronchus and then to the left mainstem bronchus, left upper lobe bronchus and left lower lobe bronchus. All of these airways were involved with severe tracheobronchomalacia. I'm happy to report that there was no endobronchial secretions identified. No tumors. No lesions. In fact the airway was completely clear. Nevertheless, there was severe tracheobronchomalacia identified. The bronchoscope was wedged into severe segment of the lingula. A total of 80 mL of fluid was infused and 35 mL was suctioned back and the samples will be sent for microbial cultures . No complications. Bronchoscope was removed. Patient was transferred recovery in stable condition.
[2019-11-11 14:01] VITALS: RESP 18
[2019-11-11 14:34] VITALS: BP 105/73; PULSE 75
== END ==
LOC: ORWHC2ENDO 11:10
PROVIDERS: ATTEND Internal Medicine Critical Care Medicine
DX: J39.8 Other specified diseases of upper respiratory tract (principal); J98.09 Other diseases of bronchus, not elsewhere classified; J47.9 Bronchiectasis, uncomplicated; J45.909 Unspecified asthma, uncomplicated; G47.33 Obstructive sleep apnea (adult) (pediatric); E66.9 Obesity, unspecified; M19.90 Unspecified osteoarthritis, unspecified site; M47.899 Other spondylosis, site unspecified; I42.9 Cardiomyopathy, unspecified; E07.9 Disorder of thyroid, unspecified; M48.00 Spinal stenosis, site unspecified; K21.9 Gastro-esophageal reflux disease without esophagitis; K90.41 Non-celiac gluten sensitivity; D50.9 Iron deficiency anemia, unspecified; Z99.81 Dependence on supplemental oxygen; Z68.39 Body mass index [BMI] 39.0-39.9, adult; Z88.1 Allergy status to other antibiotic agents; Z88.6 Allergy status to analgesic agent; Z91.013 Allergy to seafood; Z79.51 Long term (current) use of inhaled steroids; Z79.899 Other long term (current) drug therapy; Z86.19 Personal history of other infectious and parasitic diseases; Z86.69 Personal history of other diseases of the nervous system and sense organs; Z98.890 Other specified postprocedural states; Z90.710 Acquired absence of both cervix and uterus; Z90.49 Acquired absence of other specified parts of digestive tract; Z86.14 Personal history of Methicillin resistant Staphylococcus aureus infection; Z79.890 Hormone replacement therapy; Z79.891 Long term (current) use of opiate analgesic; Z82.49 Family history of ischemic heart disease and other diseases of the circulatory system; Z83.3 Family history of diabetes mellitus; Z80.9 Family history of malignant neoplasm, unspecified; Z81.8 Family history of other mental and behavioral disorders
CPT/HCPCS: 94640; 87252; 87070; 87205; 31624; J2001 ×2; J2250; J3010; J2704; 87077; 87186; 87496; 87498; 87502; 87529; 87634; 87798

== ENCOUNTER → 2019-12-29 | Outpatient (CLI) | payer BC ==
--- NOTE | 2019-12-29 20:45 | US ---
EXAMINATION TYPE: US thyroid st tissue head/neck DATE OF EXAM: 12/29/2019 COMPARISON: 11/12/2018 CLINICAL HISTORY: 54-year-old female E04.2 Nontoxic multinodular goiter. Yearly followup TECHNIQUE: Multiple sonographic images of the thyroid gland are obtained. FINDINGS: GLAND SIZE: Right Lobe: 4.2 x 1.7 x 3.0 cm Overall Parenchyma: homogenous Left Lobe: 4.7 x 1.7 x 1.2 cm Overall Parenchyma: homogeneous Isthmus Thickness: 0.3 cm NODULES RIGHT: # of nodules measured on right: 3 largest of multiple nodules 1. 1.8 X 1.1 x 1.6 cm isoechoic mixed nodule at the lower pole with poorly defined margins. This n odule is taller than wide and shows no intranodular vascularity. Prior size: 1.8 x 1.3 x 1.7 cm 2. 0.7 X 0.5 x 0.5 cm hypoechoic mixed nodule at the mid pole with well-defined margins. This nodul e is wide as is tall and shows no intranodular vascularity. Prior size: 0.6 x 0.6 x 0.3 cm 3. 0.5 X 0.4 x 0.3 cm hypoechoic, mixed nodule at the upper pole with well-defined margins. This no dule is wider than tall and shows no intranodular vascularity. Prior size: 0.5 x 0.3 x 0.3 cm LEFT: # of nodules measured on left: 2 largest of multiple nodules 1. 0.9 X 0.7 x 0.5 cm hypoechoic solid nodule at the lower pole with well-defined margins. This no dule is wider than tall and shows no intranodular vascularity. Prior size: 1.2 x 1.2 x 0.8 cm 2. 0.9 X 0.8 x 0.4 cm hypoechoic mixed nodule at the mid pole with well-defined margins. This nodul e is wider than tall and shows intranodular vascularity. Prior size: 0.7 x 0.7 x 0.4 cm ISTHMUS: # of nodules measured in the isthmus: 0 Bilateral neck scanned: no evidence of lymphadenopathy. IMPRESSION: 1. Correlate for multinodular goiter. 2. Dominant nodule on the right is solid and unchanged, measuring 1.8 x 1.6 cm (versus 1.8 x 1.7 cm o n prior exam). 3. Additional subcentimeter nodules on both sides. The largest on the left measures 9 mm and is also decreased in size previously measuring 12 mm.
== END | disposition home or self-care (01) ==
LOC: RADUSWWP 15:39
PROVIDERS: ATTEND Family Medicine
DX: E04.2 Nontoxic multinodular goiter (principal)
CPT/HCPCS: 76536

== ENCOUNTER → 2020-01-20 | Outpatient (CLI) | payer BC ==
--- NOTE | 2020-01-21 09:19 | MM ---
Reason for exam: screening (asymptomatic). Last mammogram was performed 1 year and 2 months ago. History: Took hormonal contraceptives for 3 years beginning at age 20. Physical Findings: A clinical breast exam by your physician is recommended on an annual basis and results should be correlated with mammographic findings. MG 3D Screening Mammo W/Cad Bilateral CC and MLO view(s) were taken. Prior study comparison: November 22, 2018, bilateral MG 3d screening mammo w/cad. April 06, 2017, bilateral MG 3d screening mammo w/cad. The breast tissue is heterogeneously dense. This may lower the sensitivity of mammography. There is no discrete abnormality. No significant changes when compared with prior studies. ASSESSMENT: Negative, BI-RAD 1 RECOMMENDATION: Routine screening mammogram of both breasts in 1 year.
== END | disposition home or self-care (01) ==
LOC: RADMAMWWP 13:23
PROVIDERS: ATTEND Family Medicine
DX: Z12.31 Encounter for screening mammogram for malignant neoplasm of breast (principal)
CPT/HCPCS: 77063; 77067

== ENCOUNTER → 2020-01-30 | Outpatient (CLI) | payer BC ==
--- NOTE | 2020-01-30 20:35 | MR ---
EXAMINATION TYPE: MR lumbar spine wo/w con DATE OF EXAM: 01/30/2020 COMPARISON: None HISTORY: LBP, BLE radiculopathy, prior surgery 2017. CONTRAST: Standard multiplanar, multisequence MRI departmental protocol utilizing 9 mL intravenous Gadavist roslyn olinium contrast. Lumbar vertebra have normal alignment. There is metal artifact that obscures detail from fusion surge ry from L4 to S1. There is no compression fracture. As best is within tail there is no lumbar spinal stenosis. There is no paraspinal mass. Sacroiliac joints are intact. Lumbar nerve roots appear normal . The contrast images show no pathologic enhancement. I see no bony destructive process. IMPRESSION: Posterior fusion surgery. No fracture seen. No spinal stenosis.
== END | disposition home or self-care (01) ==
LOC: RADMRIMAIN 15:38
PROVIDERS: ATTEND Specialist
DX: M47.816 Spondylosis without myelopathy or radiculopathy, lumbar region (principal); Z98.1 Arthrodesis status
CPT/HCPCS: 72158; A9585

== ENCOUNTER → 2020-03-08 | Outpatient (CLI) | payer BC ==
[2020-03-08 10:45] VITALS: BP 138/94; PULSE 90; RESP 18; TEMP 98
--- NOTE | 2020-03-10 07:46 | P.PAINCN ---
History of Present Illness - Reason for Consult Consult date: 03/08/20 - History of Present Illness This is 54 years old female with a chronic history of severe neck pain and low back pain, patient had back surgery several years ago and patient started having severe low back pain taking one year ago the pain radiated to the lower extremity associated with numbness and tingling sensation, she had left lower extremity weakness, patient also had neck pain with radiation to the upper extremity associated with some numbness and tingling sensation, she denies any weakness in the upper extremity but she reported the numbness and tingling continuous and increases with any activity, she reported that her low back pain is more prominent ,than her neck pain, she denies any fever or night sweats. She denies any change in the bowel movement or urination she denies any initiating event, patient had a history of lumbar fusion at L4 5 and L5-S1, she continues to use pain medication Ultram 50 mg twice a day and Tylenol 500 mg twice a day and she continued to have severe pain she denies any side effect of the medication Past Medical History Past Medical History: Asthma, COPD, GERD/Reflux, Osteoarthritis (OA), Pneumonia, Sleep Apnea/CPAP/BIPAP, Thyroid Disorder Additional Past Medical History / Comment(s): severe tracheobronchomalacia , obstructive sleep apnea, past cardiomyopathy thought viral, occasional tachycardia especially when eats and with activity, ITZ with CPAP use, near syncope when she had the flu and with a dental procedure-checked fitbit and heart rate in 50s, thyroid nodules , Spinal stenosis. Gluten sensitivity. Vitamin D deficiency, iron deficiency anemia, Hx of low potassium with HCTZ., migraines,bruising easily, RSV (2019), Oxygen at 3 liters- uses C-pap at night & w/ activity during the day, Dizziness ? POTS syndrome., Sliding hiatal hernia., states bronchietasis and atlectasis,chronic neck/back radiating rt leg, numbness left foot worse than rt,left hand numbness,bone spurs and spinal stenos is History of Any Multi-Drug Resistant Organisms: None Reported Year Discovered:: 03/2018 MDRO Source:: Lung Past Surgical History: Appendectomy, Back Surgery, Bariatric Surgery, Section, Cholecystectomy, Heart Catheterization, Hysterectomy, Orthopedic Surgery, Tonsillectomy Additional Past Surgical History / Comment(s): 2012 gastric sleeve, with hiatal hernia repair 11/2016 spinal fusion/decompression L4-L5 and S1, bilateral shoulder arthroscopies, 3 laparotomies d/t pain/ovarian cyst/adhesions, hysterectomy with R oophorectomy, 2 D&Cs after miscarriages, lipoma removed from left side of back, 2016 Cardiac cath-normal, colonoscopy, EGD's, trachea stent removed, cysts removed (no anesthesia),bronchoscopies multiple Past Anesthesia/Blood Transfusion Reactions: Previous Problems w/ Anesthesia, Motion Sickness, Postoperative Nausea & Vomiting (PONV) Additional Past Anesthesia/Blood Transfusion Reaction / Comm: difficult iv start, difficult intubation- pt states "Dr Johnson wants to be notified if needing to be intubated", states memory issues after anesthesia. Past Psychological History: Anxiety, Depression Additional Psychological History / Comment(s): . Smoking Status: Never smoker Past Alcohol Use History: Occasional Past Drug Use History: None Reported - Past Family History Father Family Medical History: Cancer Additional Family Medical History / Comment(s): . Mother Family Medical History: Cancer Additional Family Medical History / Comment(s): . Brother(s) Family Medical History: Pulmonary Embolus Medications and Allergies Home Medications Medication Instructions Recorded Confirmed Type Montelukast [Singulair] 10 mg PO DAILY 04/16/17 03/04/20 History Vitamin B Complex 1 cap PO DAILY 02/15/18 03/04/20 History Budesonide [Pulmicort] 0.5 mg INHALATION BID PRN 08/23/18 03/04/20 History L.acidoph,Paracasei, B.lactis 1 cap PO DAILY 08/23/18 03/04/20 History [Probiotic] Multivitamins, Thera [Multivitamin 1 tab PO DAILY 08/23/18 03/04/20 History (formulary)] Venlafaxine HCl ER [Effexor XR] 75 mg PO DAILY 08/23/18 03/04/20 History Acetaminophen Tab [Tylenol] 500 mg PO BID PRN 09/26/18 03/04/20 History Isosorbide Mononitrate [Isosorbide 15 mg PO DAILY PRN 09/26/18 03/04/20 History Mononitrate ER] Metoprolol Succinate (ER) [Toprol 25 mg PO DAILY 09/26/18 03/04/20 History XL] calcium polycarbophiL [Fibercon] 625 mg PO DAILY PRN 09/26/18 03/04/20 History Acetylcysteine [Mucomyst] 800 mg INHALATION DAILY 10/29/18 03/04/20 History Ipratropium-Albuterol Nebulize 3 ml INHALATION QID PRN 10/29/18 03/04/20 History [Duoneb 0.5 mg-3 mg/3 ml Soln] Naltrexone HCl/Bupropion HCl 2 tab PO BID 01/23/19 03/04/20 History [Contrave ER 8-90 mg Tablet] Levalbuterol Tartrate [Xopenex Hfa 2 puff INHALATION Q6HR PRN 07/14/19 03/04/20 History Inhaler] Omeprazole 40 mg PO DAILY 08/19/19 03/04/20 History Estrogens, Conjugated Cream 1 gm VAGINAL DIRECTED 11/07/19 03/04/20 History [Premarin Cream] Topiramate [Topamax] 50 mg PO BID 11/07/19 03/04/20 History Budesonide/Formoterol Fumarate 2 puff INHALATION BID 03/04/20 03/04/20 History [Symbicort 160-4.5 Mcg Inhaler] traMADol HCL [Ultram] 50 mg PO BID PRN 03/04/20 03/04/20 History Allergies Allergy/AdvReac Type Severity Reaction Status Date / Time ciprofloxacin [From Cipro] Allergy Itching Verified 03/04/20 15:02 gluten Allergy Abdominal Verified 03/04/20 15:02 Pain/HEADACHES, constipation NSAIDS (Non-Steroidal AdvReac Abdominal Verified 03/04/20 15:02 Anti-Inflamma Pain shellfish derived [Shellfish] AdvReac Vomiting Verified 03/04/20 15:02 Physical Exam Vitals: Vital Signs Temp Pulse Resp BP Pulse Ox 03/08/20 10:21 98.0 F 90 18 138/94 98 Physical Examinations : -Constitutiona : Cooperative , not in acute distress . -HEENT : nech : supple , no Lymphadenopathy , normal thyroid size . : eyes : no ptosis , no icterus, no photophobia . - neurologic : Cranial nerve II to XII intact , no focal neurological deffecit . -psychatric : alert , oriented X 3 , appropriate affect , intact judgment and insight . -Lymphatic : no Lymphadenopathy . - musculoskeltal : Cervical Spine motor stregnth in the deltoid and biceps, normal right side , normal Left side motor stregnth biceps and the wrist extensors normal right side ,normal left side . motor stregnth in the triceps muscle . normal Right side , normal Left side deep tendon reflexes normal at the biceps , normal at Brachioradialis , normal at triceps. cervical facet loading test: Positive Bilaterally Spurling test= positive Right , positive left. Neck distraction test= positive Right , positive left. Bk sign= positive right, positive left . Multiple trigger point identified in the right side cervical paraspinal muscles Lumber spine moter stegnth lower extremities ,thigh and legs 5/5 Right side , 4/5 Left side deep tendon reflexes : normal Knee Jerk , normal ankle Jerk lumber facet Loading Test =positive Right , posiutive Left Range of motion of the lumbar spine Flexion 30 degrees, extension 10 degrees strait leg raising test = positive at 30 degree Fabere test= positive Right , and positive LT . Sever tenderness over the Sacroiliac joint on the Right , and Left sides Gaenslen test= positive right ,and positive left . Seated flexion test= positive right ,and positive Left . Results Comments: MRI of the lumbar spine reviewed and showed postsurgical changes from L4 to S1 Assessment and Plan Plan: Assessment and plan=1-postlaminectomy pain syndrome lumbar area. 2-bilateral sacroiliitis. 3-myofascial pain syndrome and cervical paraspinal muscles. 4-cervical radiculopathy Patient should continue her current medications Ultram 50 mg twice a day and Tylenol 500 mg twice a day as prescribed by her PCP She could benefit from muscle relaxant prescription for Zanaflex 4 mg twice a day when necessary. She could benefit from caudal epidural steroid injection with lysis of epidural adhesions under fluoroscopy guidance Time with Patient: Greater than 30 PQRS Measure Charge Sheet Measure #130: Documentation of Current Meds in Medical Chart: Patient's medications documented in chart Measure #226: Tobacco Use: Screen & Cessation Intervention: Pt not a tobacco user Measure #111: Pneumonia Vaccination: Pneumococcal vaccine administered or previously received Measure #47: Advance Care Plan: Advance care planning discussed & documented, pt chose/unable to give Measure #412: Opioid Treatment Agreement: No documentation of signed opioid treatment agreement Measure #408: Opioid Therapy Follow-up Evaluation: Patient had NO f/u eval minimum every 3 months during opioid therapy Measure #317: Preventitive Care & Scrn High Bld Press & F/U: Normal blood pressure, f/u not required Measure #128: Body Mass Index (BMI) Screening & Follow-up: BMI documented ABOVE normal parameters - f/u documented Measure #131: Pain Assessment & Follow-up: Pain positive & plan documented, Follow-up scheduled Measure #431: Unhealthy Alcohol Use Preventative Care & Scrn: Patient not identified as an unhealthy alcohol user PQRS Narrative: Smoking Status Never smoker Blood Pressure 138/94 Pain Intensity [Lower Back] 6 Pain Intensity [Neck] 4 Scale Used Numeric (1 - 10) Hx Alcohol Use (MH) Yes Home Medications: Ambulatory Orders Montelukast [Singulair] 10 mg PO DAILY 04/16/17 Vitamin B Complex 1 cap PO DAILY 02/15/18 Budesonide [Pulmicort] 0.5 mg INHALATION BID PRN 08/23/18 L.acidoph,Paracasei, B.lactis [Probiotic] 1 cap PO DAILY 08/23/18 Multivitamins, Thera [Multivitamin (formulary)] 1 tab PO DAILY 08/23/18 Venlafaxine HCl ER [Effexor XR] 75 mg PO DAILY 08/23/18 Acetaminophen Tab [Tylenol] 500 mg PO BID PRN 09/26/18 Isosorbide Mononitrate [Isosorbide Mononitrate ER] 15 mg PO DAILY PRN 09/26/18 Metoprolol Succinate (ER) [Toprol XL] 25 mg PO DAILY 09/26/18 calcium polycarbophiL [Fibercon] 625 mg PO DAILY PRN 09/26/18 Acetylcysteine [Mucomyst] 800 mg INHALATION DAILY 10/29/18 Ipratropium-Albuterol Nebulize [Duoneb 0.5 mg-3 mg/3 ml Soln] 3 ml INHALATION QID PRN 10/29/18 Naltrexone HCl/Bupropion HCl [Contrave ER 8-90 mg Tablet] 2 tab PO BID 01/23/19 Levalbuterol Tartrate [Xopenex Hfa Inhaler] 2 puff INHALATION Q6HR PRN 07/14/19 Omeprazole 40 mg PO DAILY 08/19/19 Estrogens, Conjugated Cream [Premarin Cream] 1 gm VAGINAL DIRECTED 11/07/19 Topiramate [Topamax] 50 mg PO BID 11/07/19 Budesonide/Formoterol Fumarate [Symbicort 160-4.5 Mcg Inhaler] 2 puff INHALATION BID 03/04/20 traMADol HCL [Ultram] 50 mg PO BID PRN 03/04/20
== END | disposition home or self-care (01) ==
LOC: PNWHC3 10:16
PROVIDERS: ATTEND Specialist
DX: M96.1 Postlaminectomy syndrome, not elsewhere classified (principal); M79.18 Myalgia, other site; M46.1 Sacroiliitis, not elsewhere classified; M54.12 Radiculopathy, cervical region; E55.9 Vitamin D deficiency, unspecified; D50.9 Iron deficiency anemia, unspecified; K21.9 Gastro-esophageal reflux disease without esophagitis; M19.90 Unspecified osteoarthritis, unspecified site; G47.33 Obstructive sleep apnea (adult) (pediatric); Z79.899 Other long term (current) drug therapy; Z79.82 Long term (current) use of aspirin; Z79.891 Long term (current) use of opiate analgesic; Z79.52 Long term (current) use of systemic steroids; Z88.1 Allergy status to other antibiotic agents; Z79.02 Long term (current) use of antithrombotics/antiplatelets; Z88.6 Allergy status to analgesic agent; Z91.013 Allergy to seafood; Z99.89 Dependence on other enabling machines and devices
CPT/HCPCS: 99211

== ENCOUNTER 2020-04-02 06:28 | Day surgery (SDC) | payer BC ==
[2020-04-01 11:26] VITALS: BMI 42.2
[~2020-04-02 06:28] MED LIST changes: -ALBUTEROL NEB (CONC) 2.5 MG/0.5 ML INHALATION ONE; -GLYCOPYRROLATE 0.2 MG/ML 2 ML VIAL ONE; -IPRATROPIUM-ALBUTEROL 3 ML NEB INHALATION STA; -KETAMINE 10 MG/ML 20 ML VIAL ONE; -LIDOCAINE 1% INJ 10MG/ML (20 ML MDV) ONE; -LIDOCAINE 2% (PF) 20 MG/ML 5 ML VIAL INHALATION ONE; -LIDOCAINE 2% INJ 20 MG/ML INTRATRACH ONE; -LIDOCAINE VISCOUS 300 MG/15 ML CUP MUCOUS MEM ONE; +MIDAZOLAM 2 MG/2 ML VIAL IV PRN; -MIDAZOLAM 2 MG/2 ML VIAL ONE; -PROPOFOL 10 MG/ML 20 ML VIAL IV ONE; -SODIUM CHLORIDE 0.9% 1,000 ML IV SCH; -fentaNYL (PF) 50 MCG/ML 2 ML AMP IVP ONE; -fentaNYL (PF) 50 MCG/ML 2 ML AMP ONE
[2020-04-02] MEDS ORDERED: HYDROmorphone 0.5 MG/0.5 ML SYRINGE IVP PRN (07:00)
[2020-04-02] MEDS ORDERED: ONDANSETRON 4 MG/2 ML VIAL IVP ONE (07:10)
[2020-04-02 07:11] VITALS: TEMP 96.7
[2020-04-02] MEDS ORDERED: ONDANSETRON 4 MG/2 ML VIAL ONE (07:13)
[2020-04-02] MEDS ORDERED: IOPAMIDOL M200 10 ML VIAL ONE (07:29)
[2020-04-02] MEDS ORDERED: SODIUM CHLORIDE 0.9% (PF) 10 ML VIAL ONE (07:29)
[2020-04-02] MEDS ORDERED: methylPREDNISolone ACETATE 40 MG/ML 1 ML VIAL ONE (07:29)
[2020-04-02] MEDS ORDERED: fentaNYL (PF) 50 MCG/ML 2 ML AMP ONE (07:30)
[2020-04-02] MEDS ORDERED: MIDAZOLAM 2 MG/2 ML VIAL ONE (07:30)
--- NOTE | 2020-04-02 07:49 | P.PCN ---
Date of Procedure: 04/02/20 Procedure(s) Performed: PREOPERATIVE DIAGNOSIS:1- Lumbar post laminectomy syndrome.(Patient had lumbar fusion L4-5, L5-S1) POSTOPERATIVE DIAGNOSIS: Same as preop diagnoses PROCEDURE: 1. Caudal epidural steroid injection under fluoroscopic guidance. (Fluoroscopy images available in the radiology department ) 2. Caudal epidurogram ANESTHESIA: Monitored anesthesia care as per anesthesia department EBL: None. PROCEDURE INDICATION: The patient with neuropathic pain radiating distally r eturns for caudal epidural steroid injection. PROCEDURE DESCRIPTION: The patient was seen and identified in the preoperative area. Risks, benefits, complications, and alternatives were discussed with the patient. The patient agreed to proceed with the procedure and signed the consent. IV was started, and vital signs were stable. Patient was taken to the OR and time out was completed. The patient was placed in the prone position on procedure table and a pillow was placed under the abdomen to reduce lumbar lordosis. The lumbosacral area was prepped and draped in the usual sterile fashion. Critical pause was taken. Vital signs were closely monitored during the procedure. Using lateral fluoroscopy the anterior-posterior plates of the sacrum were identified and the skin and deeper tissues corresponding into sacrococcygeal ligament were anesthetized using approximately 3 mL of 1% lidocaine. Then under fluoroscopy, a 3-1/2-inch 20-gauge Tuohy epidural needle was guided through the sacrococcygeal ligament, and into the epidural space. After negative aspiration, a 2 mL of Isovue 200 contrast dye was injected with excellent epidurogram. Again after negative aspiration for CSF, blood, and with no paresthesias, then Depo-Medrol 80mg, 2ml of 1% preservative free Lidocaine with 6 ml of preservative free normal saline(total of 10ml)solution was injected with washout of epidurogram. Needle was withdrawn intact. Skin was cleansed, and bandage was applied. COMPLICATIONS: None DISPOSITION / PLANS: The patient was placed in a supine position and transferred to the recovery area in a stable condition for observation and was discharged from the recovery room after meeting discharge criteria. Home discharge instructions given to the patient by the staff. The patient was reexamined prior to discharge. The patient will schedule a follow up in the clinic in 2-4 weeks. note = I requested caudal epidural steroid injection with lysis of epidural adhesions, which could be more beneficial to the patient, but her insurance refused to approve caudal epidural steroid injection with lysis of epidural adhesions,and they approved only caudal epidural steroid injection
[2020-04-02] MEDS ORDERED: IV FLUID CONTINUATION 1,000 ML IV ONE (07:50)
[2020-04-02 07:53] VITALS: RESP 16
[2020-04-02 08:07] VITALS: PULSE 57
--- NOTE | 2020-04-02 08:15 | FL ---
EXAMINATION TYPE: FL guided pain mgmt statistic DATE OF EXAM: 04/02/2020 CLINICAL HISTORY: Low back and sacral pain. TECHNIQUE: Fluoroscopy. COMPARISON: None. FINDINGS: Fluoroscopic guidance was provided during pain relief procedure performed by Dr. Quarles . A total of 7 seconds of fluoroscopic time was utilized during the procedure and two spot images ar e acquired. Images acquired shows needle localization at the level of sacrum. Partial visualization of surgical change in the lumbar spine noted. IMPRESSION: As Above.
[2020-04-02 08:20] VITALS: BP 95/60
== END 2020-04-02 08:27 | disposition home or self-care (01) ==
LOC: ORPAIN 06:28
PROVIDERS: ATTEND Specialist
DX: G89.29 Other chronic pain (principal); M96.1 Postlaminectomy syndrome, not elsewhere classified; M46.1 Sacroiliitis, not elsewhere classified; M79.18 Myalgia, other site; M54.12 Radiculopathy, cervical region; J44.9 Chronic obstructive pulmonary disease, unspecified; K21.9 Gastro-esophageal reflux disease without esophagitis; M19.90 Unspecified osteoarthritis, unspecified site; J98.09 Other diseases of bronchus, not elsewhere classified; J39.8 Other specified diseases of upper respiratory tract; G47.33 Obstructive sleep apnea (adult) (pediatric); E04.1 Nontoxic single thyroid nodule; M48.00 Spinal stenosis, site unspecified; K90.41 Non-celiac gluten sensitivity; E55.9 Vitamin D deficiency, unspecified; G43.909 Migraine, unspecified, not intractable, without status migrainosus; M77.9 Enthesopathy, unspecified; F41.9 Anxiety disorder, unspecified; F32.9 Major depressive disorder, single episode, unspecified; Z98.1 Arthrodesis status; Z79.891 Long term (current) use of opiate analgesic; Z79.899 Other long term (current) drug therapy; Z87.01 Personal history of pneumonia (recurrent); Z99.89 Dependence on other enabling machines and devices; Z86.79 Personal history of other diseases of the circulatory system; Z86.2 Personal history of diseases of the blood and blood-forming organs and certain disorders involving the immune mechanism; Z86.39 Personal history of other endocrine, nutritional and metabolic disease; Z87.09 Personal history of other diseases of the respiratory system; Z87.19 Personal history of other diseases of the digestive system; Z86.19 Personal history of other infectious and parasitic diseases; Z90.49 Acquired absence of other specified parts of digestive tract; Z98.890 Other specified postprocedural states; Z98.84 Bariatric surgery status; Z90.710 Acquired absence of both cervix and uterus; Z90.89 Acquired absence of other organs; Z90.721 Acquired absence of ovaries, unilateral; Z91.89 Other specified personal risk factors, not elsewhere classified; Z87.898 Personal history of other specified conditions; Z79.51 Long term (current) use of inhaled steroids; Z79.890 Hormone replacement therapy; Z88.1 Allergy status to other antibiotic agents; Z88.6 Allergy status to analgesic agent; Z91.013 Allergy to seafood; Z80.9 Family history of malignant neoplasm, unspecified; Z82.49 Family history of ischemic heart disease and other diseases of the circulatory system
CPT/HCPCS: 62323; J2250; J1030; J2405; J3010; Q9966

== ENCOUNTER 2020-04-06 13:04 | Inpatient (IN) | payer BC ==
[2020-04-06] MEDS ORDERED: IPRATROPIUM-ALBUTEROL 3 ML NEB INHALATION STA (13:25)
[2020-04-06] MEDS ORDERED: methylPREDNISolone SOD SUCCI 125 MG/2 ML VIAL IV STA (13:25)
--- NOTE | 2020-04-06 13:29 | ED ---
General Adult HPI - General Chief complaint: Shortness of Breath Stated complaint: Dyspnea Time Seen by Provider: 04/06/20 13:19 Source: patient, RN notes reviewed Mode of arrival: ambulatory Limitations: no limitations - History of Present Illness Initial comments: Patient is a pleasant 54-year-old female presenting to the emergency department with dyspnea. Patient has had some chest discomfort for several days. Dyspnea does worsen today. Patient does have history of dyspnea associated with tracheomalacia. Patient does have cough. Patient has had temperature up to 99 recently. No leg pain or leg swelling. - Related Data Home Medications Medication Instructions Recorded Confirmed Montelukast [Singulair] 10 mg PO DAILY 04/16/17 04/06/20 Vitamin B Complex 1 cap PO DAILY 02/15/18 04/06/20 Budesonide [Pulmicort] 0.5 mg INHALATION BID PRN 08/23/18 04/06/20 L.acidoph,Paracasei, B.lactis 1 cap PO DAILY 08/23/18 04/06/20 [Probiotic] Multivitamins, Thera [Multivitamin 1 tab PO DAILY 08/23/18 04/06/20 (formulary)] Venlafaxine HCl ER [Effexor XR] 75 mg PO DAILY 08/23/18 04/06/20 Isosorbide Mononitrate [Isosorbide 30 mg PO DAILY 09/26/18 04/06/20 Mononitrate ER] Metoprolol Succinate (ER) [Toprol 25 mg PO DAILY 09/26/18 04/06/20 XL] calcium polycarbophiL [Fibercon] 625 mg PO DAILY PRN 09/26/18 04/06/20 Acetylcysteine [Mucomyst] 800 mg INHALATION DAILY 10/29/18 04/06/20 Naltrexone HCl/Bupropion HCl 2 tab PO BID 01/23/19 04/06/20 [Contrave ER 8-90 mg Tablet] Levalbuterol Tartrate [Xopenex Hfa 2 puff INHALATION Q6HR PRN 07/14/19 04/06/20 Inhaler] Omeprazole 40 mg PO DAILY 08/19/19 04/06/20 Estrogens, Conjugated Cream 1 gm VAGINAL SUWE 11/07/19 04/06/20 [Premarin Cream] Topiramate [Topamax] 50 mg PO BID 11/07/19 04/06/20 Budesonide/Formoterol Fumarate 2 puff INHALATION RT-BID 03/04/20 04/06/20 [Symbicort 160-4.5 Mcg Inhaler] traMADol HCL [Ultram] 50 mg PO BID PRN 03/04/20 04/06/20 tiZANidine HCL [Zanaflex] 4 mg PO Q12H PRN 04/01/20 04/06/20 Albuterol Inhaler [Ventolin Hfa 1 - 2 puff INHALATION RT-Q4H PRN 04/06/20 04/06/20 Inhaler] Albuterol Nebulized [Ventolin 2.5 mg INHALATION RT-Q4H PRN 04/06/20 04/06/20 Nebulized] Cholecalciferol [Vitamin D3 (25 25 mcg PO DAILY 04/06/20 04/06/20 Mcg = 1000 Iu)] Hydrocortisone Pr Cream 1 applic RECTAL TID PRN 04/06/20 04/06/20 [Proctosol-Hc 2.5%] Allergies Allergy/AdvReac Type Severity Reaction Status Date / Time ciprofloxacin [From Cipro] Allergy Itching Verified 04/06/20 14:13 gluten Allergy Abdominal Verified 04/06/20 14:13 Pain/HEADACHES, constipation NSAIDS (Non-Steroidal AdvReac Abdominal Verified 04/06/20 14:13 Anti-Inflamma Pain shellfish derived [Shellfish] AdvReac Vomiting Verified 04/06/20 14:13 Review of Systems ROS Statement: Those systems with pertinent positive or pertinent negative responses have been documented in the HPI. ROS Other: All systems not noted in ROS Statement are negative. Constitutional: Reports: as per HPI Eyes: Denies: eye pain ENT: Denies: ear pain Respiratory: Reports: cough, dyspnea Cardiovascular: Reports: as per HPI, chest pain Endocrine: Denies: fatigue Gastrointestinal: Denies: abdominal pain Genitourinary: Denies: dysuria Musculoskeletal: Denies: back pain Skin: Denies: rash Neurological: Denies: weakness Past Medical History Past Medical History: Asthma, COPD, GERD/Reflux, Osteoarthritis (OA), Pneumonia, Sleep Apnea/CPAP/BIPAP, Thyroid Disorder Additional Past Medical History / Comment(s): severe tracheobronchomalacia , obstructive sleep apnea, past cardiomyopathy thought viral, occasional tachycardia especially when eats and with activity, ITZ with CPAP use, near syncope when she had the flu and with a dental procedure-checked fitbit and heart rate in 50s, thyroid nodules , Spinal stenosis. Gluten sensitivity. Vitamin D deficiency, iron deficiency anemia, Hx of low potassium with HCTZ., migraines,bruising easily, RSV (2019), Oxygen at 4 liters., uses C-pap at night and occasionally during the day., Contrave for weight loss., Dizziness ? POTS syndrome., Sliding hiatal hernia., states bronchietasis and atlectasis. History of Any Multi-Drug Resistant Organisms: None Reported Date of last positivie culture/infection: 03/2018 MDRO Source:: Lung Past Surgical History: Appendectomy, Back Surgery, Bariatric Surgery, Section, Cholecystectomy, Heart Catheterization, Hysterectomy, Orthopedic Surgery, Tonsillectomy Additional Past Surgical History / Comment(s): 2012 gastric sleeve, with hiatal hernia repair 11/2016 spinal fusion/decompression L4-L5 and S1, bilateral shoulder arthroscopies, 3 laparotomies d/t pain/ovarian cyst/adhesions, hysterectomy with R oophorectomy, 2 D&Cs after miscarriages, lipoma removed from left side of back, 2016 Cardiac cath-normal, colonoscopy, EGD's, trachea stent removed, cysts removed (no anesthesia) Past Anesthesia/Blood Transfusion Reactions: Previous Problems w/ Anesthesia, Motion Sickness, Postoperative Nausea & Vomiting (PONV) Additional Past Anesthesia/Blood Transfusion Reaction / Comment(s): difficult iv start, difficult intubation- states they use airway band., states memory issues after anesthesia. Past Psychological History: Anxiety, Depression Smoking Status: Never smoker Past Alcohol Use History: Rare Past Drug Use History: None Reported - Past Family History Father Family Medical History: Cancer Additional Family Medical History / Comment(s): . Mother Family Medical History: Cancer Additional Family Medical History / Comment(s): . Brother(s) Family Medical History: Pulmonary Embolus General Exam Limitations: no limitations General appearance: alert, in no apparent distress Head exam: Present: normocephalic Eye exam: Present: normal appearance Neck exam: Present: normal inspection Respiratory exam: Present: respiratory distress, wheezes (Harsh deep wheeze) Cardiovascular Exam: Present: regular rate, normal rhythm GI/Abdominal exam: Present: soft. Absent: tenderness Extremities exam: Present: normal inspection. Absent: pedal edema, calf tenderness Neurological exam: Present: alert Psychiatric exam: Present: normal affect, normal mood Skin exam: Present: normal color Course Vital Signs 04/06/20 04/06/20 04/06/20 13:11 13:36 13:46 Temperature 98.5 F Pulse Rate 77 72 81 Respiratory 18 28 H 22 Rate Blood Pressure 151/86 O2 Sat by Pulse 96 Oximetry - Reevaluation(s) Reevaluation #1: 04/06/20 13:58 Case was discussed with Dr. Johnson, who did evaluate patient in the emergency department. EKG Findings - EKG Comments: EKG Findings:: Normal sinus rhythm at 79. [place] 168. QRS 84. QT 380. QTC 435. Normal axis. Normal QRS. No acute ST change. Medical Decision Making - Medical Decision Making Patient reevaluated. Patient still had continued wheezing however not quite as severe. Patient is on BiPAP and feels much better with this. [facility] has been paged for admission. - Lab Data Result diagrams: 04/06/20 13:30 04/06/20 13:30 Lab Results 04/06/20 04/06/20 04/06/20 Range/Units 13:30 13:30 13:30 WBC 8.7 (3.8-10.6) k/uL RBC 4.96 (3.80-5.40) m/uL Hgb 14.5 (11.4-16.0) gm/dL Hct 44.3 (34.0-46.0) % MCV 89.3 (80.0-100.0) fL MCH 29.2 (25.0-35.0) pg MCHC 32.7 (31.0-37.0) g/dL RDW 12.6 (11.5-15.5) % Plt Count 244 (150-450) k/uL MPV 8.1 Neutrophils % 67 % Lymphocytes % 25 % Monocytes % 5 % Eosinophils % 1 % Basophils % 1 % Neutrophils # 5.8 (1.3-7.7) k/uL Lymphocytes # 2.2 (1.0-4.8) k/uL Monocytes # 0.4 (0-1.0) k/uL Eosinophils # 0.1 (0-0.7) k/uL Basophils # 0.0 (0-0.2) k/uL PT 9.9 (9.0-12.0) sec INR 0.9 (<1.2) APTT 24.2 (22.0-30.0) sec Sodium 143 (137-145) mmol/L Potassium 4.5 (3.5-5.1) mmol/L Chloride 105 (98-107) mmol/L Carbon Dioxide 26 (22-30) mmol/L Anion Gap 12 mmol/L BUN 17 (7-17) mg/dL Creatinine 0.79 (0.52-1.04) mg/dL Est GFR (CKD-EPI)AfAm >90 (>60 ml/min/1.73 sqM) Est GFR (CKD-EPI)NonAf 87 (>60 ml/min/1.73 sqM) Glucose 81 (74-99) mg/dL Plasma Lactic Acid Lyle (0.7-2.0) mmol/L Calcium 9.7 (8.4-10.2) mg/dL Total Bilirubin 0.6 (0.2-1.3) mg/dL AST 25 (14-36) U/L ALT 17 (4-34) U/L Alkaline Phosphatase 82 (38-126) U/L Total Protein 8.3 H (6.3-8.2) g/dL Albumin 5.2 H (3.5-5.0) g/dL 04/06/20 Range/Units 13:30 WBC (3.8-10.6) k/uL RBC (3.80-5.40) m/uL Hgb (11.4-16.0) gm/dL Hct (34.0-46.0) % MCV (80.0-100.0) fL MCH (25.0-35.0) pg MCHC (31.0-37.0) g/dL RDW (11.5-15.5) % Plt Count (150-450) k/uL MPV Neutrophils % % Lymphocytes % % Monocytes % % Eosinophils % % Basophils % % Neutrophils # (1.3-7.7) k/uL Lymphocytes # (1.0-4.8) k/uL Monocytes # (0-1.0) k/uL Eosinophils # (0-0.7) k/uL Basophils # (0-0.2) k/uL PT (9.0-12.0) sec INR (<1.2) APTT (22.0-30.0) sec Sodium (137-145) mmol/L Potassium (3.5-5.1) mmol/L Chloride (98-107) mmol/L Carbon Dioxide (22-30) mmol/L Anion Gap mmol/L BUN (7-17) mg/dL Creatinine (0.52-1.04) mg/dL Est GFR (CKD-EPI)AfAm (>60 ml/min/1.73 sqM) Est GFR (CKD-EPI)NonAf (>60 ml/min/1.73 sqM) Glucose (74-99) mg/dL Plasma Lactic Acid Lyle 1.3 (0.7-2.0) mmol/L Calcium (8.4-10.2) mg/dL Total Bilirubin (0.2-1.3) mg/dL AST (14-36) U/L ALT (4-34) U/L Alkaline Phosphatase (38-126) U/L Total Protein (6.3-8.2) g/dL Albumin (3.5-5.0) g/dL - Radiology Data Radiology results: image reviewed Critical Care Time Critical Care Time: Yes Total Critical Care Time: 32 Disposition Clinical Impression: Acute tracheobronchitis, Acute respiratory failure Disposition: ADMITTED IP TO THIS HOSP Is patient prescribed a controlled substance at d/c from ED?: No Referrals: Andrews Melo [Primary Care Provider] - 1-2 days Decision Time: 14:23
[2020-04-06 13:49] LABS: Basophils % (A) 1 %; Eosinophils # (A) 0.1 k/uL (0-0.7); Eosinophils % (A) 1 %; HCT 44.3 % (34.0-46.0); HGB 14.5 gm/dL (11.4-16.0); Lymphocytes # (A) 2.2 k/uL (1.0-4.8); Lymphocytes % (A) 25 %; MCH 29.2 pg (25.0-35.0); MCHC 32.7 g/dL (31.0-37.0); MCV 89.3 fL (80.0-100.0); Mean Platelet Volume 8.1; Monocytes # (A) 0.4 k/uL (0-1.0); Monocytes % (A) 5 %; Neutrophils # (A) 5.8 k/uL (1.3-7.7); Neutrophils % (A) 67 %; Platelet Count 244 k/uL (150-450); RBC 4.96 m/uL (3.80-5.40); RDW 12.6 % (11.5-15.5); WBC 8.7 k/uL (3.8-10.6)
[2020-04-06 14:00] LABS: ALT 17 U/L (4-34); African American GFR (CKD) >90 (>60 ml/min/1.73 sqM); Albumin 5.2 g/dL (3.5-5.0); Anion Gap 12 mmol/L; Blood Urea Nitrogen 17 mg/dL (7-17); Calcium 9.7 mg/dL (8.4-10.2); Carbon Dioxide 26 mmol/L (22-30); Chloride 105 mmol/L (98-107); Glucose 81 mg/dL (74-99); Non-African American GFR(CKD) 87 (>60 ml/min/1.73 sqM); Sodium 143 mmol/L (137-145); Total Bilirubin 0.6 mg/dL (0.2-1.3); Total Protein 8.3 g/dL (6.3-8.2)
[2020-04-06 14:04] LABS: AST 25 U/L (14-36); Alkaline Phosphatase 82 U/L (38-126); Potassium 4.5 mmol/L (3.5-5.1)
[2020-04-06 14:10] LABS: INR 0.9 (<1.2); Partial Thromboplastin Time 24.2 sec (22.0-30.0); Prothrombin Time 9.9 sec (9.0-12.0)
--- NOTE | 2020-04-06 14:27 | XR ---
EXAMINATION TYPE: XR chest 1V DATE OF EXAM: 04/06/2020 COMPARISON: Prior chest x-ray 07/14/2019 HISTORY: Difficulty breathing, chest pain TECHNIQUE: Single frontal view of the chest is obtained. FINDINGS: There is no focal air space opacity, pleural effusion, or pneumothorax seen. The cardiac silhouette size is likely stable accounting for differences in technique. Lung volumes are low. Patie nt is rotated. Patchy subsegmental basilar atelectatic changes are suspected. There are overlying art ifacts. The osseous structures are intact. IMPRESSION: Expiratory rotated exam. Probable basilar atelectatic changes.
[2020-04-06] MEDS ORDERED: ONDANSETRON 4 MG/2 ML VIAL IVP PRN (15:17)
[2020-04-06] MEDS ORDERED: NALOXONE 0.4 MG/ML 1 ML VIAL IV PRN (15:17)
[2020-04-06] MEDS ORDERED: MELATONIN 3 MG TABLET PO PRN (15:17)
[2020-04-06] MEDS ORDERED: ACETAMINOPHEN TAB 325 MG TAB PO PRN (15:17)
[2020-04-06] MEDS ORDERED: BUDESONIDE 0.5 MG/2 ML NEBU INHALATION PRN (15:53)
--- NOTE | 2020-04-06 16:07 | P.HPIM ---
<Vaibhav Salomon - Last Filed: 04/06/20 15:32> History of Present Illness H&P Date: 04/06/20 Chief Complaint: Chest pain and shortness of breath History of presenting illness: Patient is a 54-year-old female with a past medical history of severe tracheomalacia home oxygen dependent on 3 L as needed, asthma with chronic obstructive pulmonary disease, obstructive sleep apnea CPAP dependent, hypertension, iron deficiency anemia and chronic back pain status post spinal laminectomy and fusion. Patient presented to [facility] with a chief complaint of chest pain and shortness of breath. Patient reports the last 3 days she has been having chest pain/tightness accompanied by increased shortness of breath significantly increased with minimal exertion. Patient reports in addition to this she has noticed a persistent cough, diaphoresis, and a reported low-grade temp of 99-100 at home. Patient was seen and fully evaluated in the emergency department with a diagnosis of acute on chronic respiratory failure and admitted under our services for continued medical managment with consultation to Dr. Johnson-Pulmonology. Upon arrival to emergency department patient was reportedly in acute respiratory distress and was immediately placed on CPAP and has been maintaining airway and oxygen saturations since. The chest x-ray was completed revealing likely atelectatic changes. EKG normal sinus rhythm at 79 bpm with no signs of ischemia. CBC, CMP, coags, and troponin were all unremarkable. Covid 19 PCR testing was negative. Upon physical assessment, patient sitting high-fowlers in bed on continuous CPAP with FiO2 32%. She had an increased respiratory effort, but not currently noted to have accessory muscle usage. Lungs with significant inspiratory and expiratory wheezes bilaterally. SpO2 97%. Patient denied having any known ill contacts. She denied headache, lightheadedness, dizziness, palpitations, abdominal pain, nausea, vomiting, having any changes in her difficulties with urinary or bowel function, experiencing any swelling/tingling/weakness/numbness in extremities. Patient does report having chronic back pain with left-sided sciatica. Review of systems: Pertinent positives and negatives as discussed in HPI, a complete review of systems was performed and all other systems are negative. Physical exam: General: Pt awake and alert, Appears at stated age, respirations even and u nlabored on continuous CPAP. Patient showing no signs of acute distress at this time. Derm: warm, dry Head: atraumatic, normocephalic, symmetric Eyes: No lid lag, anicteric sclera Mouth: no lip lesion, mucus membranes moist Cardiovascular: S1S2 regular rate and rhythm, no murmur, positive posterior tibial pulses bilaterally, cap refill less than 2 seconds. Lungs: Increased respiratory effort, but not currently noted to have accessory muscle usage. Respirations even and unlabored on continuous BiPAP with supplemental oxygen with FiO2 of 32%. Lungs significant inspiratory and expiratory wheezes bilaterally throughout all lung luevano. Abdominal: soft, nontender to palpation, no guarding, no appreciable organomegaly Ext: no gross muscle atrophy, no edema, no contractures Neuro: Speech clear, GCS 15, no noted focal neuro deficits Psych: Alert, oriented, appropriate affect Plan of care: Acute on chronic respiratory failure requiring continuous CPAP with FiO2 of 32% resulting from severe tracheomalacia with asthma/COPD -Consult to Pulmonology-Dr Johnson, pt to possibly undergo bronchoscopy tomorrow. Appreciate further recommendations. -Continuous CPAP with Oxygenation supplementation to be titrated as needed to maintain SpO2 equal to or greater than 92%. -Telemetry monitoring. -Continuous Pulse-oximetry -Duonebs as needed for SOB and/or wheezing -Incentive Spirometry -Steroids: Patient received a one-time dose of Solu-Medrol 125 mg IVP in ED. Patient being placed on prednisone 60 mg daily. -Covid negative -Influenza A and B PCR to be obtained Hypertension: -Continue daily medication regimen with isosorbide mononitrate and metoprolol succinate. GERD: -Continue daily home medication regimen of Omeprazole 40 mg daily. Chronic back pain with left-sided sciatica -Symptomatic care and pain management. -Continue home medication regimen with tramadol every 12 hours and Zanaflex bea ry 12 hours. The patient is admitted with an anticipated greater than 2 midnight stay for evaluation of acute on chronic respiratory failure. CODE STATUS: Full code DVT prophylaxis: Lovenox Discussed with: Patient Anticipated discharge date: Clinical course to determine Anticipated discharge place: Home A total of 45 minutes was spent on the care of this complex patient more than 50% of the time was spent in counseling and care coordination. Past Medical History Past Medical History: Asthma, COPD, GERD/Reflux, Osteoarthritis (OA), Pneumonia, Sleep Apnea/CPAP/BIPAP, Thyroid Disorder Additional Past Medical History / Comment(s): severe tracheobronchomalacia , obstructive sleep apnea, past cardiomyopathy thought viral, occasional tachycardia especially when eats and with activity, ITZ with CPAP use, near syncope when she had the flu and with a dental procedure-checked fitbit and heart rate in 50s, thyroid nodules , Spinal stenosis. Gluten sensitivity. Vitamin D deficiency, iron deficiency anemia, Hx of low potassium with HCTZ., migraines,bruising easily, RSV (2019), Oxygen at 4 liters., uses C-pap at night and occasionally during the day., Contrave for weight loss., Dizziness ? POTS syndrome., Sliding hiatal hernia., states bronchietasis and atlectasis. History of Any Multi-Drug Resistant Organisms: None Reported Date of last positivie culture/infection: 03/2018 MDRO Source:: Lung Past Surgical History: Appendectomy, Back Surgery, Bariatric Surgery, Section, Cholecystectomy, Heart Catheterization, Hysterectomy, Orthopedic Surgery, Tonsillectomy Additional Past Surgical History / Comment(s): 2012 gastric sleeve, with hiatal hernia repair 11/2016 spinal fusion/decompression L4-L5 and S1, bilateral shoulder arthroscopies, 3 laparotomies d/t pain/ovarian cyst/adhesions, hysterectomy with R oophorectomy, 2 D&Cs after miscarriages, lipoma removed from left side of back, 2016 Cardiac cath-normal, colonoscopy, EGD's, trachea stent removed, cysts removed (no anesthesia) Past Anesthesia/Blood Transfusion Reactions: Previous Problems w/ Anesthesia, Motion Sickness, Postoperative Nausea & Vomiting (PONV) Additional Past Anesthesia/Blood Transfusion Reaction / Comment(s): difficult iv start, difficult intubation- states they use airway band., states memory issues after anesthesia. Past Psychological History: Anxiety, Depression Smoking Status: Never smoker Past Alcohol Use History: Rare Past Drug Use History: None Reported - Past Family History Father Family Medical History: Cancer Additional Family Medical History / Comment(s): . Mother Family Medical History: Cancer Additional Family Medical History / Comment(s): . Brother(s) Family Medical History: Pulmonary Embolus Medications and Allergies Home Medications Medication Instructions Recorded Confirmed Type Montelukast [Singulair] 10 mg PO DAILY 04/16/17 04/06/20 History Vitamin B Complex 1 cap PO DAILY 02/15/18 04/06/20 History Budesonide [Pulmicort] 0.5 mg INHALATION BID PRN 06/28/19 02/09/21 History L.acidoph,Paracasei, B.lactis 1 cap PO DAILY 08/23/18 04/06/20 History [Probiotic] Multivitamins, Thera [Multivitamin 1 tab PO DAILY 08/23/18 04/06/20 History (formulary)] Venlafaxine HCl ER [Effexor XR] 75 mg PO DAILY 08/23/18 04/06/20 History Isosorbide Mononitrate [Isosorbide 15 mg PO DAILY 09/26/18 04/06/20 History Mononitrate ER] Metoprolol Succinate (ER) [Toprol 25 mg PO DAILY 09/26/18 04/06/20 History XL] calcium polycarbophiL [Fibercon] 625 mg PO DAILY PRN 09/26/18 04/06/20 History Acetylcysteine [Mucomyst] 800 mg INHALATION DAILY 10/29/18 04/06/20 History Naltrexone HCl/Bupropion HCl 2 tab PO BID 01/23/19 04/06/20 History [Contrave ER 8-90 mg Tablet] Levalbuterol Tartrate [Xopenex Hfa 2 puff INHALATION Q6HR PRN 07/14/19 04/06/20 History Inhaler] Omeprazole 40 mg PO DAILY 08/19/19 04/06/20 History Estrogens, Conjugated Cream 1 gm VAGINAL SUWE 11/07/19 04/06/20 History [Premarin Cream] Topiramate [Topamax] 50 mg PO BID 11/07/19 04/06/20 History Budesonide/Formoterol Fumarate 2 puff INHALATION RT-BID 03/04/20 04/06/20 History [Symbicort 160-4.5 Mcg Inhaler] traMADol HCL [Ultram] 50 mg PO BID PRN 03/04/20 04/06/20 History tiZANidine HCL [Zanaflex] 4 mg PO Q12H PRN 04/01/20 04/06/20 History Albuterol Inhaler [Ventolin Hfa 1 - 2 puff INHALATION RT-Q4H PRN 04/06/20 04/06/20 History Inhaler] Albuterol Nebulized [Ventolin 2.5 mg INHALATION RT-Q4H PRN 04/06/20 04/06/20 History Nebulized] Cholecalciferol [Vitamin D3 (25 25 mcg PO DAILY 04/06/20 04/06/20 History Mcg = 1000 Iu)] Hydrocortisone Pr Cream 1 applic RECTAL TID PRN 04/06/20 04/06/20 History [Proctosol-Hc 2.5%] Allergies Allergy/AdvReac Type Severity Reaction Status Date / Time ciprofloxacin [From Cipro] Allergy Itching Verified 04/06/20 14:13 gluten Allergy Abdominal Verified 04/06/20 14:13 Pain/HEADACHES, constipation NSAIDS (Non-Steroidal AdvReac Abdominal Verified 04/06/20 14:13 Anti-Inflamma Pain shellfish derived [Shellfish] AdvReac Vomiting Verified 04/06/20 14:13 Physical Exam Vitals: Vital Signs Temp Pulse Resp BP Pulse Ox 04/06/20 13:46 81 22 04/06/20 13:36 72 28 H 04/06/20 13:11 98.5 F 77 18 151/86 96 Intake and Output 04/05/20 04/06/20 04/06/20 22:59 06:59 14:59 Other: Weight 97.976 kg Results CBC & Chem 7: 04/06/20 13:30 04/06/20 13:30 Labs: Abnormal Lab Results - Last 24 Hours (Table) 04/06/20 Range/Units 13:30 Total Protein 8.3 H (6.3-8.2) g/dL Albumin 5.2 H (3.5-5.0) g/dL <Eleanor Dickson - Last Filed: 04/06/20 16:19> Physical Exam Osteopathic Statement: *. No significant issues noted on an osteopathic structural exam other than those noted in the History and Physical/Consult. Vitals: Vital Signs Temp Pulse Resp BP Pulse Ox 04/06/20 15:24 68 18 130/81 97 04/06/20 15:10 97.8 F 71 20 146/100 96 04/06/20 13:46 81 22 04/06/20 13:36 72 28 H 04/06/20 13:11 98.5 F 77 18 151/86 96 Intake and Output 04/06/20 04/06/20 04/06/20 06:59 14:59 22:59 Other: Weight 97.976 kg Results CBC & Chem 7: 04/06/20 13:30 04/06/20 13:30 Labs: Abnormal Lab Results - Last 24 Hours (Table) 04/06/20 Range/Units 13:30 Total Protein 8.3 H (6.3-8.2) g/dL Albumin 5.2 H (3.5-5.0) g/dL Assessment and Plan Assessment: Patient seen and evaluated by ERNESTINE, the original author of this note. I am in agreement with the subjective, physical exam, and assessment and plan as documented with No changes to documented plan
[2020-04-06] MEDS: HYDROcodone/APAP 5-325MG 1 EACH TAB PO PRN (16:22)
[2020-04-06] MEDS: IPRATROPIUM-ALBUTEROL 3 ML NEB INHALATION PRN ×2 (16:23→21:38)
--- NOTE | 2020-04-06 16:40 | P.CNPUL ---
History of Present Illness Consult date: 04/06/20 Reason for consult: dyspnea, cough Chief complaint: Dyspnea, cough History of present illness: This is a 54-year-old white female patient who is a well-known to our practice, follows with Dr. Johnson in the pulmonary clinic for her history of severe persistent bronchial asthma, obstructive sleep apnea, severe tracheob ronchomalacia, previous history of endobronchial stent placement and subsequent removal in view of recurrent pulmonary infections. Patient has had multiple admissions to the hospital for acute exacerbations of severe bronchial asthma. Other medical history includes hypothyroidism, morbid obesity status post bariatric surgery, history of spinal stenosis, chronic pain, history of viral cardiomyopathy, vitamin D deficiency, iron deficiency. Patient presented to the emergency department on 04/06/2020 with complaints of dyspnea, cough, chest discomfort for several days. Her cough is congested, she did have a low-grade temperature. She's had no leg swelling or leg pain. EKG showed normal sinus rhythm, no acute ST changes, chest x-ray showed no focal airspace opacity pleural effusion or pneumothorax, lung volumes are low, there are patchy subsegmental basilar atelectatic changes. Lab data reviewed showing CBC, and CMP within normal limits, coagulation profile is unremarkable, COVID 19 PCR was negative, influenza screen was negative, patient is afebrile while in the emergency department, she is in sinus mechanism with a controlled rate, she is currently on 3 L with a pulse ox of 96%, she has a frequent congested cough, has a mild to moderate shortness of breath, she has been started on nebulized bronchodilators, IV steroids. Patient will be scheduled for bronchoscopy with bronchoalveolar lavage tomorrow, under general anesthesia and intubation. The plan was discussed with the patient, she was agreeable to proceed Review of Systems All systems: negative Constitutional: Reports fatigue, Reports weakness, Denies chills, Denies fever Eyes: denies blurred vision, denies pain Ears, nose, mouth and throat: Denies headache, Denies sore throat Cardiovascular: Denies chest pain, Denies shortness of breath Respiratory: Reports congestion, Reports cough, Reports dyspnea, Reports respiratory infections, Reports sleep apnea, Reports wheezing Gastrointestinal: Denies abdominal pain, Denies diarrhea, Denies nausea, Denies vomiting Genitourinary: Denies dysuria, Denies hematuria Musculoskeletal: Denies myalgias Integumentary: Denies pruritus, Denies rash Neurological: Denies numbness, Denies weakness Psychiatric: Denies anxiety, Denies depression Endocrine: Denies fatigue, Denies weight change Past Medical History Past Medical History: Asthma, COPD, GERD/Reflux, Osteoarthritis (OA), Pneumonia, Sleep Apnea/CPAP/BIPAP, Thyroid Disorder Additional Past Medical History / Comment(s): severe tracheobronchomalacia , obstructive sleep apnea, past cardiomyopathy thought viral, occasional tachycardia especially when eats and with activity, ITZ with CPAP use, near syncope when she had the flu and with a dental procedure-checked fitbit and heart rate in 50s, thyroid nodules , Spinal stenosis. Gluten sensitivity. Vitamin D deficiency, iron deficiency anemia, Hx of low potassium with HCTZ., migraines,bruising easily, RSV (2019), Oxygen at 4 liters., uses C-pap at night and occasionally during the day., Contrave for weight loss., Dizziness ? POTS syndrome., Sliding hiatal hernia., states bronchietasis and atlectasis. History of Any Multi-Drug Resistant Organisms: None Reported Date of last positivie culture/infection: 03/2018 MDRO Source:: Lung Past Surgical History: Appendectomy, Back Surgery, Bariatric Surgery, Section, Cholecystectomy, Heart Catheterization, Hysterectomy, Orthopedic Surgery, Tonsillectomy Additional Past Surgical History / Comment(s): 2012 gastric sleeve, with hiatal hernia repair 11/2016 spinal fusion/decompression L4-L5 and S1, bilateral shoulder arthroscopies, 3 laparotomies d/t pain/ovarian cyst/adhesions, hysterectomy with R oophorectomy, 2 D&Cs after miscarriages, lipoma removed from left side of back, 2016 Cardiac cath-normal, colonoscopy, EGD's, trachea stent removed, cysts removed (no anesthesia) Past Anesthesia/Blood Transfusion Reactions: Previous Problems w/ Anesthesia, Motion Sickness, Postoperative Nausea & Vomiting (PONV) Additional Past Anesthesia/Blood Transfusion Reaction / Comment(s): difficult iv start, difficult intubation- states they use airway band., states memory issues after anesthesia. Past Psychological History: Anxiety, Depression Smoking Status: Never smoker Past Alcohol Use History: Rare Past Drug Use History: None Reported - Past Family History Father Family Medical History: Cancer Additional Family Medical History / Comment(s): . Mother Family Medical History: Cancer Additional Family Medical History / Comment(s): . Brother(s) Family Medical History: Pulmonary Embolus Medications and Allergies Home Medications Medication Instructions Recorded Confirmed Type Montelukast [Singulair] 10 mg PO DAILY 04/16/17 04/06/20 History Vitamin B Complex 1 cap PO DAILY 02/15/18 04/06/20 History Budesonide [Pulmicort] 0.5 mg INHALATION BID PRN 08/23/18 04/06/20 History L.acidoph,Paracasei, B.lactis 1 cap PO DAILY 08/23/18 04/06/20 History [Probiotic] Multivitamins, Thera [Multivitamin 1 tab PO DAILY 08/23/18 04/06/20 History (formulary)] Venlafaxine HCl ER [Effexor XR] 75 mg PO DAILY 08/23/18 04/06/20 History Isosorbide Mononitrate [Isosorbide 15 mg PO DAILY 09/26/18 04/06/20 History Mononitrate ER] Metoprolol Succinate (ER) [Toprol 25 mg PO DAILY 09/26/18 04/06/20 History XL] calcium polycarbophiL [Fibercon] 625 mg PO DAILY PRN 09/26/18 04/06/20 History Acetylcysteine [Mucomyst] 800 mg INHALATION DAILY 10/29/18 04/06/20 History Naltrexone HCl/Bupropion HCl 2 tab PO BID 01/23/19 04/06/20 History [Contrave ER 8-90 mg Tablet] Levalbuterol Tartrate [Xopenex Hfa 2 puff INHALATION Q6HR PRN 07/14/19 04/06/20 History Inhaler] Omeprazole 40 mg PO DAILY 08/19/19 04/06/20 History Estrogens, Conjugated Cream 1 gm VAGINAL SUWE 11/07/19 04/06/20 History [Premarin Cream] Topiramate [Topamax] 50 mg PO BID 11/07/19 04/06/20 History Budesonide/Formoterol Fumarate 2 puff INHALATION RT-BID 03/04/20 04/06/20 History [Symbicort 160-4.5 Mcg Inhaler] traMADol HCL [Ultram] 50 mg PO BID PRN 03/04/20 04/06/20 History tiZANidine HCL [Zanaflex] 4 mg PO Q12H PRN 04/01/20 04/06/20 History Albuterol Inhaler [Ventolin Hfa 1 - 2 puff INHALATION RT-Q4H PRN 04/06/20 04/06/20 History Inhaler] Albuterol Nebulized [Ventolin 2.5 mg INHALATION RT-Q4H PRN 04/06/20 04/06/20 History Nebulized] Cholecalciferol [Vitamin D3 (25 25 mcg PO DAILY 04/06/20 04/06/20 History Mcg = 1000 Iu)] Hydrocortisone Pr Cream 1 applic RECTAL TID PRN 04/06/20 04/06/20 History [Proctosol-Hc 2.5%] Allergies Allergy/AdvReac Type Severity Reaction Status Date / Time ciprofloxacin [From Cipro] Allergy Itching Verified 04/06/20 14:13 gluten Allergy Abdominal Verified 04/06/20 14:13 Pain/HEADACHES, constipation NSAIDS (Non-Steroidal AdvReac Abdominal Verified 04/06/20 14:13 Anti-Inflamma Pain shellfish derived [Shellfish] AdvReac Vomiting Verified 04/06/20 14:13 Physical Exam Vitals: Vital Signs Temp Pulse Resp BP Pulse Ox 04/06/20 15:24 68 18 130/81 97 04/06/20 15:10 97.8 F 71 20 146/100 96 04/06/20 13:46 81 22 04/06/20 13:36 72 28 H 04/06/20 13:11 98.5 F 77 18 151/86 96 Intake and Output 04/06/20 04/06/20 04/06/20 06:59 14:59 22:59 Other: Weight 97.976 kg GENERAL EXAM: Alert, very pleasant, 54-year-old white female, on 3 L of oxygen, sitting on a gurney in the emergency department, has a frequent barky nonproductive congested cough, characteristic of tracheobronchomalacia, comfortable in no apparent distress. HEAD: Normocephalic/atraumatic. EYES: Normal reaction of pupils, equal size. Conjunctiva pink, sclera white. NOSE: Clear with pink turbinates. THROAT: No erythema or exudates. NECK: No masses, no JVD, no thyroid enlargement, no adenopathy. CHEST: No chest wall deformity. Symmetrical expansion. LUNGS: Equal air entry with diffuse rhonchi CVS: Regular rate and rhythm, normal S1 and S2, no gallops, no murmurs, no rubs ABDOMEN: Soft, nontender. No hepatosplenomegaly, normal bowel sounds, no guarding or rigidity. EXTREMITIES: No clubbing, no edema, no cyanosis, 2+ pulses and upper and lower extremities. MUSCULOSKELETAL: Muscle strength and tone normal. SPINE: No scoliosis or deformity SKIN: No rashes CENTRAL NERVOUS SYSTEM: Alert and oriented -3. No focal deficits, tone is normal in all 4 extremities. PSYCHIATRIC: Alert and oriented -3. Appropriate affect. Intact judgment and insight. Results - Laboratory Findings CBC and BMP: 04/06/20 13:30 04/06/20 13:30 PT/INR, D-dimer PT 9.9 sec (9.0-12.0) 04/06/20 13:30 INR 0.9 (<1.2) 04/06/20 13:30 Abnormal lab findings: Abnormal Labs 04/06/20 13:30 Total Protein 8.3 H Albumin 5.2 H - Diagnostic Findings Chest x-ray: report reviewed, image reviewed Assessment and Plan Plan: Assessment: #1. Acute exacerbation of severe persistent bronchial asthma, COVID 19 and influenza PCR were ruled out, chest x-ray showed low lung volumes, and patchy subsegmental basilar atelectasis #2. History of tracheobronchomalacia with previous history of endobronchial stenting with subsequent removal of endobronchial stent related to recurrent bacterial infections #3. History of morbid obesity with previous bariatric surgery #4. History of obstructive sleep apnea on CPAP therapy #5. Previous history of pneumonia #6. History of viral cardiomyopathy #7. Degenerative disc disease #9. Vitamin D deficiency Plan: Continue steroids, continue bronchodilators, CPAP at bedtime, nothing by mouth after midnight we'll schedule the patient for bronchoscopy with BAL and this will need to be done under general anesthesia with intubation and placement on mechanical ventilator. The plan was discussed with the patient was agreeable to proceed I performed a history & physical examination of the patient and discussed their management with my nurse practitioner, Amanda Stover. I reviewed the nurse ivania marrero's note and agree with the documented findings and plan of care. Lung sounds are positive for diffuse rhonchi The findings and the impression was discussed with the patient. I attest to the documentation by the nurse practitioner. Time with Patient: Greater than 30
[2020-04-06] MEDS: NON FORMULARY DRUG (Naltrexone Hcl/Bupropion Hcl [Contrave Er 8-90 Mg Tablet] 1 EACH Table PO SCH (20:04)
[2020-04-06] MEDS: TOPIRAMATE 25 MG TAB PO SCH (20:07)
[2020-04-06] MEDS: tiZANidine 4 MG TAB PO PRN (20:07)
[2020-04-06] MEDS: BENZOCAINE/MENTHOL LOZENG 1 EACH LOZENGE MUCOUS MEM PRN (20:08)
[2020-04-06] MEDS: traMADol 50 MG TAB PO PRN (20:08)
[2020-04-06] MEDS ORDERED: ISOSORBIDE MONONITRATE ER 15 MG TAB PO STA (21:08)
[2020-04-06] MEDS: PROMETHAZINE HCL 6.25 MG/5 ML CUP PO PRN (21:26)
[2020-04-06] MEDS: SYMBICORT 160-4.5 MCG INHALER INHALATION SCH (21:39)
[2020-04-07] MEDS: traMADol 50 MG TAB PO PRN ×2 (03:08→15:10)
[2020-04-07] MEDS: BENZOCAINE/MENTHOL LOZENG 1 EACH LOZENGE MUCOUS MEM PRN ×3 (03:10→19:59)
[2020-04-07] MEDS: predniSONE 20 MG TAB PO SCH (08:19)
[2020-04-07] MEDS: TOPIRAMATE 25 MG TAB PO SCH ×2 (08:20→19:59)
[2020-04-07] MEDS: MONTELUKAST 10 MG TAB PO SCH (08:20)
[2020-04-07] MEDS: METOPROLOL SUCCINATE (ER) 25 MG TAB.ER.24H PO SCH (08:20)
[2020-04-07] MEDS: PANTOPRAZOLE 40 MG TABLET PO SCH (08:20)
[2020-04-07] MEDS: VENLAFAXINE HCL ER 75 MG CAP PO SCH (08:20)
[2020-04-07] MEDS: ISOSORBIDE MONONITRATE ER 15 MG TAB PO SCH (08:21)
[2020-04-07] MEDS: ENOXAPARIN 40 MG/0.4 ML SYRINGE SQ SCH (08:21)
[2020-04-07] MEDS: HYDROcodone/APAP 5-325MG 1 EACH TAB PO PRN ×2 (08:25→19:59)
[2020-04-07] MEDS: IPRATROPIUM-ALBUTEROL 3 ML NEB INHALATION PRN ×3 (08:37→15:40)
[2020-04-07] MEDS: SYMBICORT 160-4.5 MCG INHALER INHALATION SCH ×2 (08:38→20:46)
[2020-04-07] MEDS: ACETYLCYSTEINE 800 MG/4 ML VIAL INHALATION SCH (08:38)
[2020-04-07] MEDS: NON FORMULARY DRUG (Naltrexone Hcl/Bupropion Hcl [Contrave Er 8-90 Mg Tablet] 1 EACH Table PO SCH ×2 (10:16→19:49)
[2020-04-07 11:06] LABS: Basophils # (A) 0.01 X 10*3/uL (0.00-0.10); Basophils % (A) 0.1 %; Eosinophils # (A) 0 X 10*3/uL (0.04-0.35); Eosinophils % (A) 0 %; HCT 38.8 % (37.2-46.3); HGB 12.3 g/dL (12.0-15.0); Lymphocytes # (A) 1.26 X 10*3/uL (0.90-5.00); Lymphocytes % (A) 10.8 %; MCH 29.2 pg (27.0-32.0); MCHC 31.7 g/dL (32.0-37.0); MCV 92.2 fL (80.0-97.0); Mean Platelet Volume 11.8 fL (9.5-12.2); Monocytes # (A) 0.41 X 10*3/uL (0.20-1.00); Monocytes % (A) 3.5 %; Neutrophils # (A) 9.89 X 10*3/uL (1.80-7.70); Neutrophils % (A) 85.2 %; Platelet Count 228 X 10*3/uL (140-440); RBC 4.21 X 10*6/uL (4.10-5.20); RDW 13.1 % (11.5-14.5); WBC 11.62 X 10*3/uL (4.50-10.00)
[2020-04-07] MEDS ORDERED: SUCCINYLCHOLINE CHLORIDE 100 MG/5 ML SYR IV ONE (13:22)
[2020-04-07] MEDS ORDERED: PROPOFOL 10 MG/ML 20 ML VIAL IV ONE (13:22)
[2020-04-07 13:25] LABS: African American GFR (CKD) 85.2 (60.0-200.0); Anion Gap 12.5 mmol/L (4.00-12.00); BUN/Creat Ratio 21.11 Ratio (12.00-20.00); Calcium 9.7 mg/dL (8.7-10.3); Carbon Dioxide 25.5 mmol/L (21.6-31.8); Magnesium 2.2 mg/dL (1.5-2.4); Non-African American GFR(CKD) 73.5 (60.0-200.0)
[2020-04-07] MEDS ORDERED: LACTATED RINGERS 1,000 ML IV ONE ×2 (13:32)
--- NOTE | 2020-04-07 13:55 | P.PN ---
Subjective Progress Note Date: 04/07/20 On 04/07/2020, the patient is being seen for a follow-up. In general, she is doing well. Her white cell count is 11.6. No fever or chills. Still short of breath and cough and she reports a congested cough and she is unable to bring up much sputum. Her cough is obviously barky as the patient has underlying severe tracheal bronchomalacia. Renal function is stable with a creatinine of 0.9 and the patient's sodium level is at 144. The patient is currently nothing by mouth and she is awaiting a bronchoscopy. I'm going to do an airway inspection addition to bronchioloalveolar lavage. Her influenza screen was negative. Covid 19 by PCR was also negative. Troponins are negative. Electrolytes are all within normal limits. The patient is currently on Mucomyst once a day, DuoNeb nebulized treatments every 4 hours when necessary in addition to albuterol HFA 2 puffs every 6 hours when necessary, Symbicort 2 puffs twice a day, Phenergan for cough and a prednisone burst taper starting with 60 mg. No antibiotic coverage for now. Objective - Vital Signs Vital signs: Vital Signs Temp 97.5 F L 04/07/20 07:45 Pulse 75 04/07/20 11:52 Resp 16 04/07/20 07:45 BP 104/63 04/07/20 07:45 Pulse Ox 97 04/07/20 07:45 Intake & Output 04/06/20 04/07/20 04/07/20 18:59 06:59 18:59 Intake Total 400 Balance 400 Weight 97.976 kg Intake: IV 400 Other: Voiding Method Bedside Commode Toilet # Voids 1 3 - Exam GENERAL EXAM: Alert, very pleasant, 54-year-old white female, on 3 L of oxygen, has a frequent barky nonproductive congested cough, characteristic of tracheobronchomalacia, comfortable in no apparent distress. HEAD: Normocephalic/atraumatic. EYES: Normal reaction of pupils, equal size. Conjunctiva pink, sclera white. NOSE: Clear with pink turbinates. THROAT: No erythema or exudates. NECK: No masses, no JVD, no thyroid enlargement, no adenopathy. CHEST: No chest wall deformity. Symmetrical expansion. LUNGS: Equal air entry with diffuse rhonchi CVS: Regular rate and rhythm, normal S1 and S2, no gallops, no murmurs, no rubs ABDOMEN: Soft, nontender. No hepatosplenomegaly, normal bowel sounds, no guarding or rigidity. EXTREMITIES: No clubbing, no edema, no cyanosis, 2+ pulses and upper and lower extremities. MUSCULOSKELETAL: Muscle strength and tone normal. SPINE: No scoliosis or deformity SKIN: No rashes CENTRAL NERVOUS SYSTEM: Alert and oriented -3. No focal deficits, tone is normal in all 4 extremities. PSYCHIATRIC: Alert and oriented -3. Appropriate affect. Intact judgment and insight. - Labs CBC & Chem 7: 04/07/20 06:33 04/07/20 06:33 Labs: Abnormal Lab Results - Last 24 Hours (Table) 04/06/20 04/07/20 04/07/20 Range/Units 13:30 06:33 06:33 WBC 11.62 H (4.50-10.00) X 10*3/uL MCHC 31.7 L (32.0-37.0) g/dL Immature Gran # 0.05 H (0.00-0.04) X 10*3/uL Neutrophils # 9.89 H (1.80-7.70) X 10*3/uL Eosinophils # 0 L (0.04-0.35) X 10*3/uL Anion Gap 12.50 H (4.00-12.00) mmol/L BUN/Creatinine Ratio 21.11 H (12.00-20.00) Ratio Total Protein 8.3 H (6.3-8.2) g/dL Albumin 5.2 H (3.5-5.0) g/dL Assessment and Plan Plan: #1. Acute exacerbation of severe persistent bronchial asthma, COVID 19 and influenza PCR were ruled out, chest x-ray showed low lung volumes, and patchy subsegmental basilar atelectasis #2. History of tracheobronchomalacia with previous history of endobronchial stenting with subsequent removal of endobronchial stent related to recurrent bacterial infections #3. History of morbid obesity with previous bariatric surgery #4. History of obstructive sleep apnea on CPAP therapy #5. Previous history of pneumonia #6. History of viral cardiomyopathy #7. Degenerative disc disease #9. Vitamin D deficiency Plan Continue same treatment. Patient is currently nothing by mouth. Proceed with bronchoscopy and airway inspection endobronchial lavage. No need for antibiotic coverage. We'll make adjustments and cover with antibiotics if there is any underlying infection detected on the bronchioloalveolar lavage. Continue Phenergan for cough. Continue CPAP therapy overnight. We'll continue to follow.
--- NOTE | 2020-04-07 13:59 | P.PCN ---
Date of Procedure: 04/07/20 Preoperative Diagnosis: Severe tracheal bronchomalacia Postoperative Diagnosis: Severe tracheal bronchomalacia Procedure(s) Performed: Flexible bronchoscopy, airway inspection, bronchioloalveolar lavage of the right middle lobe. Anesthesia: [facility] Surgeon: Parish Johnson Finance Specialist #1: Amanda Stover Estimated Blood Loss (ml): 0 Pathology: other Condition: stable Disposition: floor Operative Findings: This procedure was done as the patient was having significant cough, shortness of breath, and difficulty in producing a respiratory secretions. The patient is known to have severe tracheal bronchomalacia. With suspected superinfection for that reason a bronchoscopy and the bronchioloalveolar lavage was done. This patient was brought into the endoscopy suite. The patient was intubated by the usual fashion by [employer] TE[employer]. The patient was intubated by a #8 orotracheal tube via a glidoscope. After securing the airway, the procedure was initiated. The flexible bronchoscope was introduced through the orotracheal tube and was advanced in the lower trachea. The mid in the lower trachea was within normal limits and it was quite patent. Nevertheless, there was an obvious component of tracheal bronchomalacia with complete obstruction of the airway due to dynamic obstruction with exhalation and cough and. No respiratory secretions were encountered in the trachea. Melody was sharp in the midline. An airway inspection was done and the exact duration of the right settings with the right mainstem bronchus, right upper lobe bronchus, bronchus intermedius, right middle lobe bronchus and right lower lobe bronchus and the 10 different segments in the right right lung was inspected. No respiratory secretions. No inflammation. No foreign body. There was bronchomalacia. Examination of the left settings with left mainstem bronchus, left upper lobe bronchus and left lower lobe bronchus including the a different segments of the left lung. Similarly, no endobronchial secretions were encountered. There was bronchomalacia. The bronchoscope was then moved to the right middle lobe and a total of 60 mL of fluid was infused and 20 mL was suctioned back. The bronchioloalveolar lavage of the right middle lobe was done. Therapeutic airway suctioning was done and the bronchoscope was removed and while being extubated, and airway inspection was done involving the upper trachea, subglottic trachea, the vocal cords and the larynx and then the pharynx. There was evidence of dynamic obstruction of the pharyngeal/laryngeal were consistent with obstructive sleep apnea. No evidence of any other abnormalities. Vocal cords were functional and there was normal abduction and adduction. No evidence of any subglottic tracheal stenosis. The procedure was completed. The lavage from the right middle lobe was sent for cultures and analysis.
--- NOTE | 2020-04-07 15:13 | P.PN ---
Subjective Progress Note Date: 04/07/20 Patient is feeling better today. She still complaining of cough that is productive of occasional white phlegm. She denies any fevers or chills. Shortness of breath is better compared to yesterday. Objective - Vital Signs Vital signs: Vital Signs Temp 97.7 F 04/07/20 14:00 Pulse 97 04/07/20 14:30 Resp 18 04/07/20 14:30 BP 144/66 04/07/20 14:30 Pulse Ox 95 04/07/20 14:30 Intake & Output 04/06/20 04/07/20 04/07/20 18:59 06:59 18:59 Intake Total 400 Balance 400 Weight 97.976 kg Intake: IV 400 Other: Voiding Method Bedside Commode Toilet # Voids 1 3 - Exam General: The patient is awake and alert, in no distress Eye: there is normal conjunctiva bilaterally. Neck: The neck is supple, there is no JVD. Cardiovascular: Normal S1-S2, no S3-S4, no murmurs. Respiratory: Lungs clear to auscultation bilaterally Gastrointestinal: Abdomen is soft, nontender Musculoskeletal: There is no pedal edema. Neurological:. Speech is normal. Skin: Skin is warm and dry - Labs CBC & Chem 7: 04/07/20 06:33 04/07/20 06:33 Labs: Abnormal Lab Results - Last 24 Hours (Table) 04/07/20 04/07/20 Range/Units 06:33 06:33 WBC 11.62 H (4.50-10.00) X 10*3/uL MCHC 31.7 L (32.0-37.0) g/dL Immature Gran # 0.05 H (0.00-0.04) X 10*3/uL Neutrophils # 9.89 H (1.80-7.70) X 10*3/uL Eosinophils # 0 L (0.04-0.35) X 10*3/uL Anion Gap 12.50 H (4.00-12.00) mmol/L BUN/Creatinine Ratio 21.11 H (12.00-20.00) Ratio Assessment and Plan Assessment: This is a 54-year-old female with complex past medical history noted below who presented to the emergency room with worsening shortness of breath. Patient was evaluated in the ER and admitted to the hospital for further management of her medical problems noted below. 1. Acute asthma exacerbation, treated with bronchodilators and IV steroids. Now transitioned to oral prednisone. Influenza screen and COVID-19 negative. Seen and evaluated by pulmonology, appreciate recommendations. 2. Underlying tracheobronchomalacia with a history of endobronchial stenting in the past, status post bronchoscopy with BAL. 3. Chronic medical problems, obstructive sleep apnea, underlying cardiomyopathy, DJD, chronic hypoxic respiratory failure on home O2
[2020-04-07] MEDS: ALBUTEROL NEBULIZED 2.5 MG/3 ML INHALATION PRN (20:46)
[2020-04-07] MEDS ORDERED: VANCOMYCIN IV PER PHARMACY 1 EACH MISC MISCELLANE PRN (20:58)
[2020-04-07] MEDS ORDERED: SENNOSIDES-DOCUSATE SODIUM 1 EACH TAB PO PRN (21:23)
--- NOTE | 2020-04-07 21:50 | P.EN ---
RN notified me to come discuss multiple patient concerns 1- patient concerned regarding positive blood culture, I reviewed patient medical records, and explained as long as she does not have clear picture of infection with bactremia, then most likely explanation , is this positive blood culture is a contaminated sample, and we have two options either monitor her off antibiotics , watching for fever, or significant leukocytosis , while waiting for culture ID, and repeat blood cultures to confirm or rule out infection ,. or start antibiotics like vancomycin to cover the infamous MRSA until we rule it out. she opted in for Vancomycin, explaining that she has been with her mother in the hospital , who is diagnosed with MRSA infection and currently on antibiotics. I explained to her the side effect risk , renal toxicity , she verbalized understanding and would like to proceed,. vanco dosing by pharmacy ordered 2- chest pain , with history of CMP, she is concerned regarding heart attack again , i reviewed her medical record , and explained that she had negative troponin, and no acute ST changes on EKG, two negative heart cath in the past, with the type of atypical features that she is describing for her chest pain , its unlikely to be due to heart attack. she was still concerned and claimed that she keeps getting these chest pains off and on while in the hospital and she is just experiencing one, associated with some diaphoresis , the pain is sharp more with deep breathing ,but also without breathing, non radiating , no nausea or vomiting, but associated with trouble breathing which could be from her lung and tracheomalacia. i offered to repeat EKG, and check another set of troponin she verbalized agreement , and she would like to talk to cardiology to discuss her scheduled OP echo to see if she can get it here, and to discuss her concerns regarding prognosis of her CMP. I offered her to place a consult to cardiology so she can talk to them tomorrow. she is in agreement with above plan 3- she had questions regarding her lung condition and tracheomalacia , and results of her bronchoscopy i reviewed results with her. and suggested that she have these questions addressed by the system administrator in the morning she is again in agreement 35 minutes were spent in this interview.
[2020-04-07] MEDS ORDERED: VANCOMYCIN 1,500 MG in SODIUM CHLORIDE 0.9% 250 ML IVPB SCH (22:00)
[2020-04-08] MEDS: traMADol 50 MG TAB PO PRN (07:38)
[2020-04-08] MEDS: ALBUTEROL NEBULIZED 2.5 MG/3 ML INHALATION PRN (08:41)
[2020-04-08] MEDS: SYMBICORT 160-4.5 MCG INHALER INHALATION SCH ×2 (08:41→19:40)
[2020-04-08] MEDS: predniSONE 20 MG TAB PO SCH (09:49)
[2020-04-08] MEDS: ENOXAPARIN 40 MG/0.4 ML SYRINGE SQ SCH (09:49)
[2020-04-08] MEDS: VENLAFAXINE HCL ER 75 MG CAP PO SCH (09:49)
[2020-04-08] MEDS: METOPROLOL SUCCINATE (ER) 25 MG TAB.ER.24H PO SCH (09:49)
[2020-04-08] MEDS: ISOSORBIDE MONONITRATE ER 15 MG TAB PO SCH (09:49)
[2020-04-08] MEDS: MONTELUKAST 10 MG TAB PO SCH (09:49)
[2020-04-08] MEDS: PANTOPRAZOLE 40 MG TABLET PO SCH (09:49)
[2020-04-08] MEDS: TOPIRAMATE 25 MG TAB PO SCH ×2 (09:50→20:11)
[2020-04-08] MEDS: NON FORMULARY DRUG (Naltrexone Hcl/Bupropion Hcl [Contrave Er 8-90 Mg Tablet] 1 EACH Table PO SCH ×2 (09:51→20:30)
[2020-04-08] MEDS: ACETYLCYSTEINE 800 MG/4 ML VIAL INHALATION SCH (12:44)
[2020-04-08] MEDS: IPRATROPIUM-ALBUTEROL 3 ML NEB INHALATION PRN ×3 (12:44→19:40)
--- NOTE | 2020-04-08 13:20 | P.PN ---
Subjective Progress Note Date: 04/08/20 Patient is doing well today. BAL cultures still pending. Gram-positive bacteremia reported yesterday turned out to be contamination. No fevers or chills. Objective - Vital Signs Vital signs: Vital Signs Temp 98.2 F 04/08/20 13:00 Pulse 72 04/08/20 13:04 Resp 17 04/08/20 13:00 BP 113/74 04/08/20 13:00 Pulse Ox 88 L 04/08/20 13:00 Intake & Output 04/07/20 04/08/20 04/08/20 18:59 06:59 18:59 Intake Total 400 250 200 Balance 400 250 200 Intake: IV 400 Intake, IV Titration 250 Amount Vancomycin 1,500 mg In 250 Sodium Chloride 0.9% 250 ml @ 125 mls/hr IVPB Q16H [facility] Rx#:[id number] Oral 200 Other: Voiding Method Toilet Toilet # Voids 2 1 - Exam General: The patient is awake and alert, in no distress Eye: there is normal conjunctiva bilaterally. Neck: The neck is supple, there is no JVD. Cardiovascular: Normal S1-S2, no S3-S4, no murmurs. Respiratory: Lungs clear to auscultation bilaterally Gastrointestinal: Abdomen is soft, nontender Musculoskeletal: There is no pedal edema. Neurological:. Speech is normal. Skin: Skin is warm and dry - Labs CBC & Chem 7: 04/07/20 06:33 04/07/20 06:33 Labs: Abnormal Lab Results - Last 24 Hours (Table) 04/07/20 Range/Units 06:33 Anion Gap 12.50 H (4.00-12.00) mmol/L BUN/Creatinine Ratio 21.11 H (12.00-20.00) Ratio Microbiology - Last 24 Hours (Table) 04/06/20 15:51 Blood Culture Gram Stain - Preliminary Blood Blood Culture - Preliminary Coagulase Negative Staph 04/07/20 13:40 Gram Stain - Preliminary Bronchoalviolar Lavage - Right Bronchial Washings Culture - Preliminary 04/06/20 15:51 Blood Culture - Final Blood Assessment and Plan Assessment: This is a 54-year-old female with complex past medical history noted below who presented to the emergency room with worsening shortness of breath. Patient was evaluated in the ER and admitted to the hospital for further management of her medical problems noted below. 1. Acute asthma exacerbation, treated with bronchodilators and IV steroids. Now transitioned to oral prednisone. Influenza screen and COVID-19 negative. Seen and evaluated by pulmonology, appreciate recommendations. 2. Underlying tracheobronchomalacia with a history of endobronchial stenting in the past, status post bronchoscopy with BAL. Awaiting culture results 3. Gram-positive bacteremia, contamination. Coag negative staph. Antibiotic will be discontinued. 4. Chronic medical problems, obstructive sleep apnea, underlying cardiomyopathy, DJD, chronic hypoxic respiratory failure on home O2
--- NOTE | 2020-04-08 14:59 | P.CRDCN ---
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 She follows in the office with Dr. Singh. We have been asked to see in consultation for chest pain. She presented to the hospital with symptoms of shortness of breath, chest pain, fever and cough. She underwent a bronchoscopy with Dr. Johnson yesterday with a bronchial lavage. She follows closely with Dr. Singh. She has frequent episodes of chest discomfort thought to be related probably to coronary spasm. She is prescribed Imdur which she has been instructed to take as needed when she has chest pain on a daily basis. For the previous one week she has been taking this every day because she is experiencing a pain in the midsternal region described as a heavy sensation that radiates through to her back. She seems to notice it worse when she is sitting up in her recliner. It is not related to exertion or activity. Since admission she has also been diagnosed with coagulase-negative Staphylococcus bacteremia. She is currently maintained on IV antibiotics. She has undergone cardiac catheterization in 2017 and 2019. Feeling normal coronary arteries with nonobstructive disease. DIAGNOSTICS EKG reveals sinus mechanism with no acute ST or T wave abnormalities noted. Chest xray basilar atelectasis.. Laboratory reviewed, BC 11.6, hemoglobin 12.3, platelets 228, sodium 144, potassium 5, creatinine 0.9, troponin negative 2, pro-calcitonin 0.03 and magnesium 2.2. Current cardiac medications include Imdur 15 mg daily and Toprol 25 mg daily. REVIEW OF SYSTEMS At the time of my exam: CONSTITUTIONAL: Denies fever or chills. CARDIOVASCULAR: Denies chest pain, shortness of breath, orthopnea, PND or palpitations. RESPIRATORY: Complains of cough. GASTROINTESTINAL: Denies abdominal pain, diarrhea, constipation, nausea or vomiting. MUSCULOSKELETAL: Denies myalgias. NEUROLOGIC: Denies numbness, tingling, headacbe or weakness. ENDOCRINE: Denies fatigue, weight change, polydipsia or polyurina. GENITOURINARY: Denies burning, hematuria or urgency with micturation. HEMATOLOGIC: Denies history of anemia or bleeding. PHYSICAL EXAMINATION Blood pressure 113/74 heart rate 75 afebrile and maintaining low normal oxygen saturation on capap. CONSTITUTIONAL: No apparent distress. Morbidly obese. HEENT: Head is normocephalic. Pupils are equal, round. Sclerae anicteric. Mucous membranes of the mouth are moist. No JVD. No carotid bruit. CHEST EXAMINATION: Course scattered rhonchi, no rales or wheezes. No chest wall tenderness is noted on palpation or with deep breathing. Harsh cough. HEART EXAMINATION: Regular rate and rhythm. S1, S2 heard. No murmurs, gallops or rub. ABDOMEN: Soft, nontender. Positive bowel sounds. EXTREMITIES: 2+ peripheral pulses, no lower extremity edema and no calf tend erness. NEUROLOGIC EXAMINATION: Patient is awake, alert and oriented x3. ASSESSMENT Chest pain Acute exacerbation of asthma Tracheobronchomalacia Gram positive bacteremia Obstructive sleep apnea PLAN Pain is atypical for angina. We will repeat her echocardiogram to assess cardiac structure and function. Thank you kindly for this consultation. Nurse Practitioner note has been reviewed, I agree with a documented findings and plan of care. Patient was seen and examined. Past Medical History Past Medical History: Asthma, COPD, GERD/Reflux, Osteoarthritis (OA), Pneumonia, Sleep Apnea/CPAP/BIPAP, Thyroid Disorder Additional Past Medical History / Comment(s): Severe tracheobronchomalacia, obstructive sleep apnea, past cardiomyopathy thought viral, occasional tachycardia especially when eats and with activity, ITZ with CPAP use, near syncope when she had the flu and with a dental procedure-checked fitbit and heart rate in 50s, thyroid nodules, Spinal stenosis. Gluten sensitivity. Vitamin D deficiency, iron deficiency anemia, Hx of low potassium with HCTZ., migraines, bruising easily, RSV (2019), Oxygen at 4 liters., uses C-pap at night and occasionally during the day., Contrave for weight loss., Dizziness ? POTS syndrome., Sliding hiatal hernia., states bronchietasis and atlectasis. History of Any Multi-Drug Resistant Organisms: None Reported Date of last positivie culture/infection: 03/2018 MDRO Source:: Lung Past Surgical History: Appendectomy, Back Surgery, Bariatric Surgery, Section, Cholecystectomy, Heart Catheterization, Hysterectomy, Orthopedic Surgery, Tonsillectomy Additional Past Surgical History / Comment(s): 2012 gastric sleeve, with hiatal hernia repair 11/2016 spinal fusion/decompression L4-L5 and S1, bilateral shoulder arthroscopies, 3 laparotomies d/t pain/ovarian cyst/adhesions, hysterectomy with R oophorectomy, 2 D&Cs after miscarriages, lipoma removed from left side of back, 2016 Cardiac cath-normal, colonoscopy, EGD's, trachea stent removed, cysts removed (no anesthesia) Past Anesthesia/Blood Transfusion Reactions: Previous Problems w/ Anesthesia, Motion Sickness, Postoperative Nausea & Vomiting (PONV) Additional Past Anesthesia/Blood Transfusion Reaction / Comment(s): Difficult iv start, difficult intubation - states they use airway band, states memory issues after anesthesia. Past Psychological History: Anxiety, Depression Smoking Status: Never smoker Past Alcohol Use History: Rare Past Drug Use History: None Reported - Past Family History Father Family Medical History: Cancer Additional Family Medical History / Comment(s): . Mother Family Medical History: Cancer Additional Family Medical History / Comment(s): . Brother(s) Family Medical History: Pulmonary Embolus Medications and Allergies Home Medications Medication Instructions Recorded Confirmed Type Montelukast [Singulair] 10 mg PO DAILY 04/16/17 04/06/20 History Vitamin B Complex 1 cap PO DAILY 02/15/18 04/06/20 History Budesonide [Pulmicort] 0.5 mg INHALATION BID PRN 08/23/18 04/06/20 History L.acidoph,Paracasei, B.lactis 1 cap PO DAILY 08/23/18 04/06/20 History [Probiotic] Multivitamins, Thera [Multivitamin 1 tab PO DAILY 08/23/18 04/06/20 History (formulary)] Venlafaxine HCl ER [Effexor XR] 75 mg PO DAILY 08/23/18 04/06/20 History Isosorbide Mononitrate [Isosorbide 15 mg PO DAILY 09/26/18 04/06/20 History Mononitrate ER] Metoprolol Succinate (ER) [Toprol 25 mg PO DAILY 09/26/18 04/06/20 History XL] calcium polycarbophiL [Fibercon] 625 mg PO DAILY PRN 09/26/18 04/06/20 History Acetylcysteine [Mucomyst] 800 mg INHALATION DAILY 10/29/18 04/06/20 History Naltrexone HCl/Bupropion HCl 2 tab PO BID 01/23/19 04/06/20 History [Contrave ER 8-90 mg Tablet] Levalbuterol Tartrate [Xopenex Hfa 2 puff INHALATION Q6HR PRN 07/14/19 04/06/20 History Inhaler] Omeprazole 40 mg PO DAILY 08/19/19 04/06/20 History Estrogens, Conjugated Cream 1 gm VAGINAL SUWE 11/07/19 04/06/20 History [Premarin Cream] Topiramate [Topamax] 50 mg PO BID 11/07/19 04/06/20 History Budesonide/Formoterol Fumarate 2 puff INHALATION RT-BID 03/04/20 04/06/20 History [Symbicort 160-4.5 Mcg Inhaler] traMADol HCL [Ultram] 50 mg PO BID PRN 03/04/20 04/06/20 History tiZANidine HCL [Zanaflex] 4 mg PO Q12H PRN 04/01/20 04/06/20 History Albuterol Inhaler [Ventolin Hfa 1 - 2 puff INHALATION RT-Q4H PRN 04/06/20 04/06/20 History Inhaler] Albuterol Nebulized [Ventolin 2.5 mg INHALATION RT-Q4H PRN 04/06/20 04/06/20 History Nebulized] Cholecalciferol [Vitamin D3 (25 25 mcg PO DAILY 04/06/20 04/06/20 History Mcg = 1000 Iu)] Hydrocortisone Pr Cream 1 applic RECTAL TID PRN 04/06/20 04/06/20 History [Proctosol-Hc 2.5%] Allergies Allergy/AdvReac Type Severity Reaction Status Date / Time ciprofloxacin [From Cipro] Allergy Itching Verified 04/06/20 14:13 gluten Allergy Abdominal Verified 04/06/20 14:13 Pain/HEADACHES, constipation NSAIDS (Non-Steroidal AdvReac Abdominal Verified 04/06/20 14:13 Anti-Inflamma Pain shellfish derived [Shellfish] AdvReac Vomiting Verified 04/06/20 14:13 Physical Exam Vitals: Vital Signs Temp Pulse Pulse Pulse Resp BP Pulse Ox 04/08/20 13:04 72 04/08/20 13:00 98.2 F 75 17 113/74 88 L 04/08/20 12:45 72 04/08/20 08:59 76 04/08/20 08:42 70 02/11/21 08:00 97 18 04/08/20 07:32 97.7 F 73 18 146/75 99 04/08/20 01:57 97.8 F 78 19 131/81 99 04/07/20 21:01 80 04/07/20 20:46 80 04/07/20 19:54 98.4 F 99 19 139/82 95 04/07/20 15:51 78 04/07/20 15:40 76 04/07/20 14:30 97 18 144/66 95 04/07/20 14:15 99 18 142/66 98 04/07/20 14:00 98.7 F 94 22 154/94 94 L Intake and Output 04/07/20 04/08/20 04/08/20 22:59 06:59 14:59 Intake Total 250 200 Balance 250 200 Intake: Intake, IV Titration 250 Amount Vancomycin 1,500 mg In 250 Sodium Chloride 0.9% 250 ml @ 125 mls/hr IVPB Q16H [facility] Rx#:[id number] Oral 200 Other: Voiding Method Toilet # Voids 2 1 Results 04/07/20 06:33 04/07/20 06:33 Cardiac Enzymes 04/07/20 Range/Units 21:06 Troponin I <0.012 (0.000-0.034) ng/mL Current Medications Generic Name Dose Route Start Last Admin Trade Name Freq PRN Reason Stop Dose Admin Acetaminophen 650 mg 04/06/20 15:17 Acetaminophen Tab 325 Mg Tab PO Q6HR PRN Mild Pain or Fever > 100.5 Hydrocodone Bitart/Acetaminophen 1 each 04/06/20 15:17 04/07/20 19:59 Hydrocodone/Apap 5-325mg 1 Each Tab PO 1 each Q4HR PRN Administration Moderate Pain Acetylcysteine 800 mg 04/07/20 08:00 04/08/20 12:44 Acetylcysteine 800 Mg/4 Ml Vial INHALATION 800 mg RT-DAILY [facility] Administration Albuterol Sulfate 2.5 mg 04/06/20 15:53 04/08/20 08:41 Albuterol Nebulized 2.5 Mg/3 Ml INHALATION 2.5 mg Q6HR PRN Administration Shortness Of Breath Albuterol/Ipratropium 3 ml 04/06/20 15:28 04/08/20 12:44 Ipratropium-Albuterol 3 Ml Neb INHALATION 3 ml Q4H PRN Administration Wheezing Benzocaine/Menthol 1 each 04/06/20 19:40 04/07/20 19:59 Benzocaine/Menthol Lozeng 1 Each Lozenge MUCOUS MEM 1 each Q4HR PRN Administration Sore Throat Budesonide/Formoterol Fumarate 2 puff 04/06/20 20:00 04/08/20 08:41 Symbicort 160-4.5 Mcg Inhaler INHALATION 2 puff RT-BID [facility] Administration Enoxaparin Sodium 40 mg 04/07/20 09:00 04/08/20 09:49 Enoxaparin 40 Mg/0.4 Ml Syringe SQ 40 mg DAILY [facility] Administration Isosorbide Mononitrate 15 mg 04/07/20 09:00 04/08/20 09:49 Isosorbide Mononitrate Er 15 Mg Tab PO 15 mg DAILY [facility] Administration Melatonin 3 mg 04/06/20 15:17 Melatonin 3 Mg Tablet PO HS PRN Insomnia Metoprolol Succinate 25 mg 04/07/20 09:00 04/08/20 09:49 Metoprolol Succinate (Er) 25 Mg Tab.Er.24h PO 25 mg DAILY [facility] Administration Montelukast Sodium 10 mg 04/07/20 09:00 04/08/20 09:49 Montelukast 10 Mg Tab PO 10 mg DAILY [facility] Administration Naloxone HCl 0.2 mg 04/06/20 15:17 Naloxone 0.4 Mg/Ml 1 Ml Vial IV Q2M PRN Opioid Reversal Non-Formulary Medication 2 tab 04/06/20 21:00 04/08/20 09:51 Naltrexone Hcl/Bupropion Hcl [Contrave Er 8-90 Mg Tablet] PO Not Given BID [facility] Ondansetron HCl 4 mg 04/06/20 15:17 Ondansetron 4 Mg/2 Ml Vial IVP Q8HR PRN Nausea And Vomiting Pantoprazole Sodium 40 mg 04/07/20 09:00 04/08/20 09:49 Pantoprazole 40 Mg Tablet PO 40 mg DAILY [facility] Administration Prednisone 40 mg 04/09/20 09:00 Prednisone 20 Mg Tab PO DAILY [facility] Promethazine HCl 6.25 mg 04/06/20 19:39 04/06/20 21:26 Promethazine Hcl 6.25 Mg/5 Ml Cup PO 6.25 mg Q6H PRN Administration Nausea And Vomiting Senna/Docusate Sodium 1 each 04/07/20 21:23 04/07/20 21:28 Sennosides-Docusate Sodium 1 Each Tab PO 1 each BID PRN Administration Constipation Tizanidine HCl 4 mg 04/06/20 15:53 04/06/20 20:07 Tizanidine 4 Mg Tab PO 4 mg Q12H PRN Administration MUSCLE SPASM Topiramate 50 mg 04/06/20 21:00 04/08/20 09:50 Topiramate 25 Mg Tab PO 50 mg BID [facility] Administration Tramadol HCl 50 mg 04/06/20 15:53 04/08/20 07:38 Tramadol 50 Mg Tab PO 50 mg BID PRN Administration Pain Venlafaxine HCl 75 mg 04/07/20 09:00 04/08/20 09:49 Venlafaxine Hcl Er 75 Mg Cap PO 75 mg DAILY [facility] Administration Intake and Output 04/07/20 04/08/20 04/08/20 22:59 06:59 14:59 Intake Total 250 200 Balance 250 200 Intake: Intake, IV Titration 250 Amount Vancomycin 1,500 mg In 250 Sodium Chloride 0.9% 250 ml @ 125 mls/hr IVPB Q16H [facility] Rx#:[id number] Oral 200 Other: Voiding Method Toilet # Voids 2 1 04/07/20 06:33 04/07/20 06:33
[2020-04-08] MEDS: BENZOCAINE/MENTHOL LOZENG 1 EACH LOZENGE MUCOUS MEM PRN ×2 (15:14→20:28)
--- NOTE | 2020-04-08 16:14 | P.PN ---
Subjective Progress Note Date: 04/08/20 Principal diagnosis: Acute exacerbation of severe persistent bronchial asthma This is a 54-year-old white female patient who is a well-known to our practice, follows with Dr. Johnson in the pulmonary clinic for her history of severe persistent bronchial asthma, obstructive sleep apnea, severe tracheobronchomalacia, previous history of endobronchial stent placement and subsequent removal in view of recurrent pulmonary infections. Patient has had multiple admissions to the hospital for acute exacerbations of severe bronchial asthma. Other medical history includes hypothyroidism, morbid obesity status post bariatric surgery, history of spinal stenosis, chronic pain, history of viral cardiomyopathy, vitamin D deficiency, iron deficiency. Patient presented to the emergency department on 04/06/2020 with complaints of dyspnea, cough, chest discomfort for several days. Her cough is congested, she did have a low- grade temperature. She's had no leg swelling or leg pain. EKG showed normal sinus rhythm, no acute ST changes, chest x-ray showed no focal airspace opacity pleural effusion or pneumothorax, lung volumes are low, there are patchy subsegmental basilar atelectatic changes. Lab data reviewed showing CBC, and CMP within normal limits, coagulation profile is unremarkable, COVID 19 PCR was negative, influenza screen was negative, patient is afebrile while in the emergency department, she is in sinus mechanism with a controlled rate, she is currently on 3 L with a pulse ox of 96%, she has a frequent congested cough, has a mild to moderate shortness of breath, she has been started on nebulized bronchodilators, IV steroids. Patient will be scheduled for bronchoscopy with bronchoalveolar lavage tomorrow, under general anesthesia and intubation. The plan was discussed with the patient, she was agreeable to proceed On 04/08/2020 patient seen in follow-up on medical floor, she is still having frequent barky rattly cough, she started to bring up some yellowish colored sputum, no hemoptysis, no chest pain, her blood cultures were positive for coagulase-negative staph, repeat blood cultures have been sent, she remains on vancomycin for antibiotic coverage for possibility she is having echocardiogram done at the bedside today. Patient is status post bronchoscopy with bronchoalveolar lavage, her bronchial wash cultures are currently pending. She is on vitamins bronchodilators, oral steroids, her pro-calcitonin level was negative at 0.03 Objective - Vital Signs Vital signs: Vital Signs Temp 98.2 F 04/08/20 13:00 Pulse 72 04/08/20 13:04 Resp 17 04/08/20 15:18 BP 113/74 04/08/20 13:00 Pulse Ox 88 L 04/08/20 13:00 Intake & Output 04/07/20 04/08/20 04/08/20 18:59 06:59 18:59 Intake Total 400 250 400 Balance 400 250 400 Intake: IV 400 Intake, IV Titration 250 Amount Vancomycin 1,500 mg In 250 Sodium Chloride 0.9% 250 ml @ 125 mls/hr IVPB Q16H [facility] Rx#:[id number] Oral 400 Other: Voiding Method Toilet Toilet # Voids 2 1 # Bowel Movements 1 - Exam GENERAL EXAM: Alert, very pleasant, 54-year-old white female, on 3 L of oxygen, sitting on a gurney in the emergency department, has a frequent barky nonproductive congested cough, characteristic of tracheobronchomalacia, comfortable in no apparent distress. HEAD: Normocephalic/atraumatic. EYES: Normal reaction of pupils, equal size. Conjunctiva pink, sclera white. NOSE: Clear with pink turbinates. THROAT: No erythema or exudates. NECK: No masses, no JVD, no thyroid enlargement, no adenopathy. CHEST: No chest wall deformity. Symmetrical expansion. LUNGS: Equal air entry with diffuse rhonchi CVS: Regular rate and rhythm, normal S1 and S2, no gallops, no murmurs, no rubs ABDOMEN: Soft, nontender. No hepatosplenomegaly, normal bowel sounds, no guarding or rigidity. EXTREMITIES: No clubbing, no edema, no cyanosis, 2+ pulses and upper and lower extremities. MUSCULOSKELETAL: Muscle strength and tone normal. SPINE: No scoliosis or deformity SKIN: No rashes CENTRAL NERVOUS SYSTEM: Alert and oriented -3. No focal deficits, tone is normal in all 4 extremities. PSYCHIATRIC: Alert and oriented -3. Appropriate affect. Intact judgment and insight. - Labs CBC & Chem 7: 04/07/20 06:33 04/07/20 06:33 Labs: Microbiology - Last 24 Hours (Table) 04/06/20 15:51 Blood Culture Gram Stain - Preliminary Blood Blood Culture - Preliminary Coagulase Negative Staph 04/07/20 13:40 Gram Stain - Preliminary Bronchoalviolar Lavage - Right Bronchial Washings Culture - Preliminary 04/06/20 15:51 Blood Culture - Final Blood Assessment and Plan Plan: Assessment: #1. Acute exacerbation of severe persistent bronchial asthma, COVID 19 and i nfluenza PCR were ruled out, chest x-ray showed low lung volumes, and patchy subsegmental basilar atelectasis, patient is status post bronchoscopy with bronchoalveolar lavage, and BAL cultures are pending, procalcitonin negative #2. History of tracheobronchomalacia with previous history of endobronchial stenting with subsequent removal of endobronchial stent related to recurrent bacterial infections #3. History of morbid obesity with previous bariatric surgery #4. History of obstructive sleep apnea on CPAP therapy #5. Previous history of pneumonia #6. History of viral cardiomyopathy #7. Degenerative disc disease #9. Vitamin D deficiency Plan: Continue current medical treatment, steroids, nebulized bronchodilators, BAL cultures are pending, progesterone level is negative, no fever or chills, follow-up cultures have been sent. Continue to follow I performed a history & physical examination of the patient and discussed their management with my nurse practitioner, Amanda Stover. I reviewed the nurse practitioner's note and agree with the documented findings and plan of care. Lung sounds are positive for diffuse rhonchi The findings and the impression was discussed with the patient. I attest to the documentation by the nurse practitioner. Time with Patient: Less than 30
[2020-04-08] MEDS: tiZANidine 4 MG TAB PO PRN (17:58)
--- NOTE | 2020-04-08 18:11 | CONS ---
CONSULTATION DATE OF SERVICE: 04/08/2020. REASON FOR CONSULTATION: Bacteremia. HISTORY OF PRESENT ILLNESS: The patient is a 54-year-old female with a past medical history significant for bronchial asthma, tracheobronchomalacia, previous history of endobronchial stent placement and subsequent removal, and history of recurrent pulmonary infection. The patient presented to the ER on 04/06/2020 for evaluation of increasing shortness of breath, cough and chest discomfort. The patient's symptoms had been getting worse for a few days before presentation to the hospital. The patient's symptoms had become greater in intensity with occasional sputum production. Denies any hemoptysis. Chest discomfort more of a pressure and discomfort-like, 3 to 4 out of 10 and no radiation. The patient did have a fever as well. With these symptoms, the patient presented to hospital. Since arriving in the ER the patient has been afebrile. No fever has been recorded since the patient has been in the hospital. The patient did have a normal white count on presentation to the hospital; no left shift. Kidney function was normal. Melchor and influenza PCR were negative. Patient had a chest x-ray which showed expiratory rotated exam, possible basilar atelectatic changes. Patient has been followed by Pulmonary, status post bronchoscopy. Cultures were obtained which are currently pending. She also had blood cultures done which came back positive for Gram- positive cocci. The patient has been started on vancomycin. Infectious Disease was consulted for further management of antibiotic therapy. The patient did mention that she has been exposed to her mother while she was in the hospital with MRSA infection. REVIEW OF SYSTEMS: Positive points have been mentioned in HPI. Rest of the systems are negative. PAST MEDICAL HISTORY: COPD, tracheobronchomalacia, asthma, pneumonia, sleep apnea, hypothyroidism. PAST SURGICAL HISTORY: Appendectomy, back surgery, bariatric surgery, . SOCIAL HISTORY: No history of smoking. Rarely drinks. No drug use. FAMILY HISTORY: Both parents with history of cancer. ALLERGIES: CIPRO, NON-STEROIDAL ANTI-INFLAMMATORY MEDICATION. MEDICATIONS: Currently the patient is on Tylenol, [place], Mucomyst, DuoNeb, Cepacol lozenges, Symbicort, Lovenox, Imdur, melatonin, Toprol-XL, Singulair, Narcan, Zofran, Protonix, prednisone, Phenergan, Senokot, Topamax, Ultram, Effexor, vancomycin discontinued. PHYSICAL EXAMINATION: Blood pressure 138/74 with a pulse of 75, temperature 98.2. She is 99% on CPAP. General description is a middle-aged female lying in bed in no distress. No tachypnea or accessory muscle of respiration use. HEENT: Examination shows no pallor or scleral icterus. Oral mucous membrane is moist. NECK: Trachea is central. No thyromegaly. LUNGS: Unlabored breathing. Occasional expiratory wheeze. HEART: S1, S2. Regular rate and rhythm. ABDOMEN: Soft. No tenderness. No guarding or rigidity. EXTREMITIES: No edema of the feet. SKIN EXAMINATION: No rash or mass palpable. Neurologically the patient is awake, alert, oriented x3. Mood and affect normal. LABS: Hemoglobin is 12.3, white count 11.62, BUN of 19, creatinine 0.9. Procalcitonin is 0.03. Liver enzymes are normal. Melchor and influenza PCR negative. Blood cultures with coagulase-negative Staph. DIAGNOSTIC IMPRESSION AND PLAN: 1. Patient with a positive blood culture for coagulase-negative Staphylococcus, likely skin contamination, as the patient to go along with it. 2. Patient admitted to hospital with shortness of breath and a cough with subjective fever. No fever has been recorded. Chest x-ray with some bibasilar atelectasis and did have normal procalcitonin, status post bronchoscopy. Clinically not behaving as pneumonia. PLAN: 1. Agree with discontinuation of the vancomycin infection. 2. The patient will be monitored closely off antibiotic and bronch cultures will be followed, and antibiotic added if needed. Thank you for this consultation. Will follow this patient along with you. MMODL / IJN: [id number] /
[2020-04-08] MEDS: PROMETHAZINE HCL 6.25 MG/5 ML CUP PO PRN ×2 (20:30→23:19)
--- NOTE | 2020-04-09 07:16 | ECHOF ---
Referral Reason:cp MEASUREMENTS -------- HEIGHT: 152.4 cm WEIGHT: 98.0 kg BP: 113/74 RVIDd: 3.4 cm (< 3.3) IVSd: 1.0 cm (0.6 - 1.1) LVIDd: 4.6 cm (3.9 - 5.3) LVPWd: 1.2 cm (0.6 - 1.1) IVSs: 1.5 cm LVIDs: 3.2 cm LVPWs: 2.1 cm LAESV Index (A-L): 30.00 ml/m Ao Diam: 2.8 cm (2.0 - 3.7) AV Cusp: 2.0 cm (1.5 - 2.6) LA Diam: 3.4 cm (2.7 - 3.8) MV EXCURSION: 19.892 mm (> 18.000) MV EF SLOPE: 143 mm/s (70 - 150) EPSS: 0.5 cm MV E Pastor: 0.97 m/s MV DecT: 152 ms MV A Pastor: 0.67 m/s MV E/A Ratio: 1.46 RAP: 5.00 mmHg RVSP: 28.70 mmHg FINDINGS -------- Sinus rhythm. This was a technically adequate study. The left ventricular size is normal. Left ventricular wall thickness is normal. There is normal g lobal left ventricular contractility. Overall left ventricular systolic function is normal with, an EF between 55 - 60 %. The right ventricle is mildly enlarged. LA is midly dilated 29-33ml/m2. The right atrium is mildly enlarged. Interatrial and interventricular septum intact. The aortic valve is trileaflet, and appears structurally normal. No aortic stenosis or regurgitation. The mitral valve is normal. Mild mitral regurgitation is present. The tricuspid valve appears structurally normal. Mild tricuspid regurgitation present. Right vent ricular systolic pressure is normal at < 35 mmHg. The right ventricular systolic pressure, as measu red by Doppler, is 28.70mmHg. There is no pulmonic regurgitation present. The aortic root size is normal. Normal inferior vena cava with normal inspiratory collapse consistent with estimated right atrial pre ssure of 5 mmHg. There is no pericardial effusion. CONCLUSIONS -------- 1. Left ventricular wall thickness is normal. 2. Overall left ventricular systolic function is normal with, an EF between 55 - 60 %. 3. The right ventricle is mildly enlarged. 4. LA is midly dilated 29-33ml/m2. 5. The right atrium is mildly enlarged. 6. The aortic valve is trileaflet, and appears structurally normal. No aortic stenosis or regurgitati on. 7. Mild mitral regurgitation is present. 8. Mild tricuspid regurgitation present. [employer]: Gabriella Grant RDCS
[2020-04-09] MEDS: IPRATROPIUM-ALBUTEROL 3 ML NEB INHALATION PRN (07:52)
[2020-04-09] MEDS: ACETYLCYSTEINE 800 MG/4 ML VIAL INHALATION SCH (07:52)
[2020-04-09] MEDS: SYMBICORT 160-4.5 MCG INHALER INHALATION SCH (07:52)
[2020-04-09] MEDS ORDERED: predniSONE 20 MG TAB PO SCH (09:00)
[2020-04-09] MEDS: ENOXAPARIN 40 MG/0.4 ML SYRINGE SQ SCH (10:30)
[2020-04-09] MEDS: ISOSORBIDE MONONITRATE ER 15 MG TAB PO SCH (10:31)
[2020-04-09] MEDS: METOPROLOL SUCCINATE (ER) 25 MG TAB.ER.24H PO SCH (10:31)
[2020-04-09] MEDS: PANTOPRAZOLE 40 MG TABLET PO SCH (10:32)
[2020-04-09] MEDS: MONTELUKAST 10 MG TAB PO SCH (10:32)
[2020-04-09] MEDS: VENLAFAXINE HCL ER 75 MG CAP PO SCH (10:33)
[2020-04-09] MEDS: TOPIRAMATE 25 MG TAB PO SCH (10:35)
[2020-04-09] MEDS: NON FORMULARY DRUG (Naltrexone Hcl/Bupropion Hcl [Contrave Er 8-90 Mg Tablet] 1 EACH Table PO SCH (10:41)
[2020-04-09] MEDS: BENZOCAINE/MENTHOL LOZENG 1 EACH LOZENGE MUCOUS MEM PRN (10:46)
[2020-04-09] MEDS: ALBUTEROL NEBULIZED 2.5 MG/3 ML INHALATION PRN (11:03)
[2020-04-09 11:07] LABS: African American GFR (CKD) 115.5 (60.0-200.0); Non-African American GFR(CKD) 99.6 (60.0-200.0)
--- NOTE | 2020-04-09 11:57 | PN ---
PROGRESS NOTE Mrs. Carbone is a 54-year-old female who has a history of severe tracheobronchomalacia who presented with progressive dyspnea with dark sputum, underwent bronchoscopy and bronchoalveolar lavage. She has been followed by Dr. Singh as an outpatient. She continues to have dyspnea. This morning has coughing but no chest pain. No dizziness. No palpitation. She had prior history of cardiomyopathy that resolved. She underwent an echocardiogram that revealed preserved left ventricular size and systolic function and continues to be at this time on isosorbide mononitrate 15 mg daily, metoprolol succinate 25 mg daily, Protonix, prednisone. PHYSICAL EXAMINATION: Blood pressure 130/70 with the heart rate in the 60s. LUNGS: With scattered rhonchi. No wheezes. HEART: Regular rate and rhythm. S1, S2. No S3. No rub. ABDOMEN: Soft, obese, nontender. EXTREMITIES: No edema. LAB DATA: Lab data revealed a creatinine of 0.7. IMPRESSION: 1. Progressive dyspnea in a patient with a history of severe persistent bronchial asthma and a prior history of tracheobronchomalacia. 2. History of viral cardiomyopathy, resolved, with normalized left ventricular systolic function. 3. Morbid obesity. 4. Obstructive sleep apnea. RECOMMENDATION: From the cardiac standpoint, she is stable. No further cardiac workup is needed at this point. We will see her on as-needed basis. Please feel free to call us for any question. MMODL / IJN: [id number] /
[2020-04-09 13:55] VITALS: BP 119/71; RESP 20; TEMP 97.9
--- NOTE | 2020-04-09 15:13 | PN ---
PROGRESS NOTE DATE OF SERVICE: 04/09/2020 REASON FOR FOLLOWUP: 1. Positive blood culture. 2. Question of pneumonia. INTERVAL HISTORY: The patient is currently afebrile. The patient is breathing comfortably. Still complaining of cough, not bringing up any sputum. No chest pain. No abdominal pain. No diarrhea. PHYSICAL EXAMINATION: Blood pressure 119/71 with a pulse of 77, temperature 97.9. General description is a middle-aged female up in the bed in no distress. RESPIRATORY SYSTEM: Unlabored breathing, occasional wheeze. HEART: S1, S2. Regular rate and rhythm. ABDOMEN: Soft, no tenderness. LABS: Creatinine 0.7. Blood culture is Coagulase negative Staph. Bronch culture has been negative. DIAGNOSTIC IMPRESSION AND PLAN: Patient admitted to the hospital with shortness of breath, cough and fever. This patient did have positive blood culture with Coagulase negative Staph likely contaminant. Vancomycin will be discontinued. The patient more likely has tracheobronchitis clinically not behaving as pneumonia. Bronch culture has been negative. Patient is currently being monitored closely off antibiotic therapy. MMODL / IJN: [id number] /
[2020-04-09 15:24] VITALS: PULSE 88
--- NOTE | 2020-04-09 15:59 | P.PN ---
Subjective Progress Note Date: 04/09/20 Principal diagnosis: Acute exacerbation of severe persistent bronchial asthma This is a 54-year-old white female patient who is a well-known to our practice, follows with Dr. Johnson in the pulmonary clinic for her history of severe persistent bronchial asthma, obstructive sleep apnea, severe tracheobronchomalacia, previous history of endobronchial stent placement and subsequent removal in view of recurrent pulmonary infections. Patient has had multiple admissions to the hospital for acute exacerbations of severe bronchial asthma. Other medical history includes hypothyroidism, morbid obesity status post bariatric surgery, history of spinal stenosis, chronic pain, history of viral cardiomyopathy, vitamin D deficiency, iron deficiency. Patient presented to the emergency department on 04/06/2020 with complaints of dyspnea, cough, chest discomfort for several days. Her cough is congested, she did have a low- grade temperature. She's had no leg swelling or leg pain. EKG showed normal sinus rhythm, no acute ST changes, chest x-ray showed no focal airspace opacity pleural effusion or pneumothorax, lung volumes are low, there are patchy subsegmental basilar atelectatic changes. Lab data reviewed showing CBC, and CMP within normal limits, coagulation profile is unremarkable, COVID 19 PCR was negative, influenza screen was negative, patient is afebrile while in the emergency department, she is in sinus mechanism with a controlled rate, she is currently on 3 L with a pulse ox of 96%, she has a frequent congested cough, has a mild to moderate shortness of breath, she has been started on nebulized bronchodilators, IV steroids. Patient will be scheduled for bronchoscopy with bronchoalveolar lavage tomorrow, under general anesthesia and intubation. The plan was discussed with the patient, she was agreeable to proceed On 04/08/2020 patient seen in follow-up on medical floor, she is still having frequent barky rattly cough, she started to bring up some yellowish colored sputum, no hemoptysis, no chest pain, her blood cultures were positive for coagulase-negative staph, repeat blood cultures have been sent, she remains on vancomycin for antibiotic coverage for possibility she is having echocardiogram done at the bedside today. Patient is status post bronchoscopy with bronchoalveolar lavage, her bronchial wash cultures are currently pending. She is on vitamins bronchodilators, oral steroids, her pro-calcitonin level was negative at 0.03 On 04/09/2020 patient seen in follow-up on medical floor, he continues on vancomycin for positive blood culture, ID service is following, her blood culture final report came back positive for coagulase-negative staph likely contaminant, vancomycin was discontinued. She is breathing comfortably, still has persistent cough, nonproductive, no complaints chest pain, no fever. Objective - Vital Signs Vital signs: Vital Signs Temp 97.9 F 04/09/20 13:53 Pulse 88 04/09/20 15:24 Resp 20 04/09/20 13:53 BP 119/71 04/09/20 13:53 Pulse Ox 99 04/09/20 07:42 Intake & Output 04/08/20 04/09/20 04/09/20 18:59 06:59 18:59 Intake Total 400 200 100 Balance 400 200 100 Intake: Oral 400 200 100 Other: Voiding Method Toilet Toilet Toilet # Voids 2 # Bowel Movements 1 1 - Exam GENERAL EXAM: Alert, very pleasant, 54-year-old white female, on 3 L of oxygen, sitting on a gurney in the emergency department, has a frequent barky nonproductive congested cough, characteristic of tracheobronchomalacia, comfortable in no apparent distress. HEAD: Normocephalic/atraumatic. EYES: Normal reaction of pupils, equal size. Conjunctiva pink, sclera white. NOSE: Clear with pink turbinates. THROAT: No erythema or exudates. NECK: No masses, no JVD, no thyroid enlargement, no adenopathy. CHEST: No chest wall deformity. Symmetrical expansion. LUNGS: Equal air entry with diffuse rhonchi CVS: Regular rate and rhythm, normal S1 and S2, no gallops, no murmurs, no rubs ABDOMEN: Soft, nontender. No hepatosplenomegaly, normal bowel sounds, no guarding or rigidity. EXTREMITIES: No clubbing, no edema, no cyanosis, 2+ pulses and upper and lower extremities. MUSCULOSKELETAL: Muscle strength and tone normal. SPINE: No scoliosis or deformity SKIN: No rashes CENTRAL NERVOUS SYSTEM: Alert and oriented -3. No focal deficits, tone is normal in all 4 extremities. PSYCHIATRIC: Alert and oriented -3. Appropriate affect. Intact judgment and insight. - Labs CBC & Chem 7: 04/07/20 06:33 04/09/20 06:32 Labs: Microbiology - Last 24 Hours (Table) 04/07/20 13:40 Gram Stain - Final Bronchoalviolar Lavage - Right Bronchial Washings Culture - Final 04/06/20 15:51 Blood Culture Gram Stain - Final Blood Blood Culture - Final Coagulase Negative Staph Coagulase Negative Staph#2 04/07/20 16:32 Blood Culture - Preliminary Blood No Growth after 24 hours Assessment and Plan Plan: Assessment: #1. Acute exacerbation of severe persistent bronchial asthma, COVID 19 and influenza PCR were ruled out, chest x-ray showed low lung volumes, and patchy subsegmental basilar atelectasis, patient is status post bronchoscopy with bro nchoalveolar lavage, and BAL cultures are pending, procalcitonin negative #2. History of tracheobronchomalacia with previous history of endobronchial stenting with subsequent removal of endobronchial stent related to recurrent bacterial infections #3. History of morbid obesity with previous bariatric surgery #4. History of obstructive sleep apnea on CPAP therapy #5. Previous history of pneumonia #6. History of viral cardiomyopathy #7. Degenerative disc disease #9. Vitamin D deficiency Plan: Continue current medical treatment, continue bronchodilators, patient has been transitioned to oral prednisone, she has had no fever or chills, her bronchial wash cultures are negative thus far, still has persistent cough, but overall improving, we'll continue to follow I performed a history & physical examination of the patient and discussed their management with my nurse practitioner, Amanda Stover. I reviewed the nurse practitioner's note and agree with the documented findings and plan of care. Lung sounds are positive for diffuse rhonchi The findings and the impression was discussed with the patient. I attest to the documentation by the nurse practitioner. Time with Patient: Less than 30
[2020-04-09] MEDS ORDERED: IPRATROPIUM-ALBUTEROL 3 ML NEB INHALATION SCH (16:00)
--- NOTE | 2020-04-09 16:05 | P.DS ---
Providers Date of admission: 04/06/20 15:57 Expected date of discharge: 04/09/20 Attending physician: Eleanor Dickson MD Consults: 04/06/20 15:21 Consult Physician Routine Consulting Provider: Parish Johnson Consult Reason/Comments: Acute resp failure w/ hypoxia CPAP dependent hx of tracheomalacia/asthma Do you want consulting provider notified?: Yes 04/07/20 16:04 Consult Physician Routine Consulting Provider: Kimberly Ortiz Consult Reason/Comments: Bacteremia Do you want consulting provider notified?: Yes 04/07/20 21:36 Consult Physician Routine Consulting Provider: Jignesh Singh Consult Reason/Comments: known to cardio, tachycardia Do you want consulting provider notified?: Yes, Notify in am Primary care physician: Andrews [facility] Hospital Course: This is a 54-year-old female with complex past medical history noted below who presented to the emergency room with worsening shortness of breath. Patient was evaluated in the ER and admitted to the hospital for further management of her medical problems noted below. 1. Acute asthma exacerbation, treated with bronchodilators and IV steroids. Now transitioned to oral prednisone. Influenza screen and COVID-19 negative. Seen and evaluated by pulmonology, appreciate recommendations. We will taper prednisone slowly 2. Underlying tracheobronchomalacia with a history of endobronchial stenting in the past, status post bronchoscopy with BAL. Cultures negative to date. No indication for antibiotic at this time. Continue Mucinex twice daily. 3. Gram-positive bacteremia, contamination. Coag negative staph. Antibiotic will be discontinued. Repeat blood cultures negative to date 4. Chronic medical problems, obstructive sleep apnea, underlying cardiomyopathy, DJD, chronic hypoxic respiratory failure on home O2 Patient will be discharged home in a stable condition. For further details about this hospitalization please refer to the electronic chart. Time spent on discharge > 30 minutes including counseling and coordination of care Patient Condition at Discharge: Stable Plan - Discharge Summary Discharge Rx Participant: No New Discharge Prescriptions: New RX: predniSONE 0 mg PO DIRECTED #30 tab Continue RX: Montelukast [Singulair] 10 mg PO DAILY RX: Vitamin B Complex 1 cap PO DAILY RX: Multivitamins, Thera [Multivitamin (formulary)] 1 tab PO DAILY RX: Venlafaxine HCl ER [Effexor XR] 75 mg PO DAILY RX: Budesonide [Pulmicort] 0.5 mg INHALATION BID PRN PRN Reason: Shortness Of Breath RX: L.acidoph,Paracasei, B.lactis [Probiotic] 1 cap PO DAILY RX: calcium polycarbophiL [Fibercon] 625 mg PO DAILY PRN PRN Reason: Constipation RX: Metoprolol Succinate (ER) [Toprol XL] 25 mg PO DAILY RX: Isosorbide Mononitrate [Isosorbide Mononitrate ER] 15 mg PO DAILY RX: Acetylcysteine [Mucomyst] 800 mg INHALATION DAILY RX: Naltrexone HCl/Bupropion HCl [Contrave ER 8-90 mg Tablet] 2 tab PO BID RX: Levalbuterol Tartrate [Xopenex Hfa Inhaler] 2 puff INHALATION Q6HR PRN PRN Reason: Shortness Of Breath RX: Omeprazole 40 mg PO DAILY RX: Estrogens, Conjugated Cream [Premarin Cream] 1 gm VAGINAL SUWE RX: Topiramate [Topamax] 50 mg PO BID RX: Budesonide/Formoterol Fumarate [Symbicort 160-4.5 Mcg Inhaler] 2 puff INHALATION RT-BID RX: traMADol HCL [Ultram] 50 mg PO BID PRN PRN Reason: Pain RX: tiZANidine HCL [Zanaflex] 4 mg PO Q12H PRN PRN Reason: MUSCLE SPASM RX: Cholecalciferol [Vitamin D3 (25 Mcg = 1000 Iu)] 25 mcg PO DAILY RX: Hydrocortisone Pr Cream [Proctosol-Hc 2.5%] 1 applic RECTAL TID PRN PRN Reason: Hemorrhoids RX: Albuterol Inhaler [Ventolin Hfa Inhaler] 1 - 2 puff INHALATION RT-Q4H PRN PRN Reason: Shortness Of Breath Discontinued Albuterol Nebulized [Ventolin Nebulized] 2.5 mg INHALATION RT-Q4H PRN PRN Reason: Shortness Of Breath Discharge Medication List RX: Montelukast [Singulair] 10 mg PO DAILY 04/16/17 [History] RX: Vitamin B Complex 1 cap PO DAILY 02/15/18 [History] RX: Budesonide [Pulmicort] 0.5 mg INHALATION BID PRN 08/23/18 [History] RX: L.acidoph,Paracasei, B.lactis [Probiotic] 1 cap PO DAILY 08/23/18 [History] RX: Multivitamins, Thera [Multivitamin (formulary)] 1 tab PO DAILY 08/23/18 [History] RX: Venlafaxine HCl ER [Effexor XR] 75 mg PO DAILY 08/23/18 [History] RX: Isosorbide Mononitrate [Isosorbide Mononitrate ER] 15 mg PO DAILY 09/26/18 [History] RX: Metoprolol Succinate (ER) [Toprol XL] 25 mg PO DAILY 09/26/18 [History] RX: calcium polycarbophiL [Fibercon] 625 mg PO DAILY PRN 09/26/18 [History] RX: Acetylcysteine [Mucomyst] 800 mg INHALATION DAILY 10/29/18 [History] RX: Naltrexone HCl/Bupropion HCl [Contrave ER 8-90 mg Tablet] 2 tab PO BID 01/23/19 [History] RX: Levalbuterol Tartrate [Xopenex Hfa Inhaler] 2 puff INHALATION Q6HR PRN 07/14/19 [History] RX: Omeprazole 40 mg PO DAILY 08/19/19 [History] RX: Estrogens, Conjugated Cream [Premarin Cream] 1 gm VAGINAL SUWE 11/07/19 [History] RX: Topiramate [Topamax] 50 mg PO BID 11/07/19 [History] RX: Budesonide/Formoterol Fumarate [Symbicort 160-4.5 Mcg Inhaler] 2 puff INHALATION RT-BID 03/04/20 [History] RX: traMADol HCL [Ultram] 50 mg PO BID PRN 03/04/20 [History] RX: tiZANidine HCL [Zanaflex] 4 mg PO Q12H PRN 04/01/20 [History] RX: Albuterol Inhaler [Ventolin Hfa Inhaler] 1 - 2 puff INHALATION RT-Q4H PRN 04/06/20 [History] RX: Cholecalciferol [Vitamin D3 (25 Mcg = 1000 Iu)] 25 mcg PO DAILY 04/06/20 [History] RX: Hydrocortisone Pr Cream [Proctosol-Hc 2.5%] 1 applic RECTAL TID PRN 04/06/20 [History] RX: predniSONE 0 mg PO DIRECTED #30 tab 04/09/20 [Rx] Follow up Appointment(s)/Referral(s): Jignesh Singh MD [STAFF PHYSICIAN] - 2 Weeks Parish Johnson MD [Family Provider] - 3 Weeks Andrews Melo [Primary Care Provider] - 1-2 days Discharge Disposition: HOME SELF-CARE
[2020-04-09] MEDS ORDERED: FORMOTEROL FUMARATE 20 MCG/2 ML NEBU INHALATION SCH (20:00)
[2020-04-09] MEDS ORDERED: BUDESONIDE 0.5 MG/2 ML NEBU INHALATION SCH (20:00)
== END 2020-04-09 17:23 | disposition home or self-care (01) | DRG 202 ==
LOC: EC 13:04 → 4SSUR 15:57
PROVIDERS: ADMIT Internal Medicine; ATTEND Internal Medicine
PROC: 5A09457 Assistance with Respiratory Ventilation, 24-96 Consecutive Hours, Continuous Positive Airway Pressure (ICD-10-PCS; 2020-04-07)
PROC: 0B9D8ZX Drainage of Right Middle Lung Lobe, Via Natural or Artificial Opening Endoscopic, Diagnostic (ICD-10-PCS; principal; 2020-04-07 07:50)
DX: J45.51 Severe persistent asthma with (acute) exacerbation (principal); Z68.41 Body mass index [BMI] 40.0-44.9, adult; I42.9 Cardiomyopathy, unspecified; J98.11 Atelectasis; J96.11 Chronic respiratory failure with hypoxia; E03.9 Hypothyroidism, unspecified; E55.9 Vitamin D deficiency, unspecified; E66.01 Morbid (severe) obesity due to excess calories; F32.9 Major depressive disorder, single episode, unspecified; F41.9 Anxiety disorder, unspecified; G47.33 Obstructive sleep apnea (adult) (pediatric); Z20.822 Contact with and (suspected) exposure to COVID-19; J98.09 Other diseases of bronchus, not elsewhere classified; M54.32 Sciatica, left side; M19.90 Unspecified osteoarthritis, unspecified site; G89.29 Other chronic pain; I10 Essential (primary) hypertension; Z98.84 Bariatric surgery status; Z98.1 Arthrodesis status; Z90.721 Acquired absence of ovaries, unilateral; Z90.710 Acquired absence of both cervix and uterus; Z87.01 Personal history of pneumonia (recurrent); Z79.899 Other long term (current) drug therapy; Z79.51 Long term (current) use of inhaled steroids
CPT/HCPCS: 31624; 36415; 71045; 80048; 80053; 82565; 83605; 83735; 84145; 84484; 85025; 85610; 85730; 87040; 87070; 87205; 87252; 87496; 87498; 87502; 87529; 87634; 87635; 87798; 93005; 93306; 94640; 94660; 96374; 99291

== ENCOUNTER → 2020-04-28 | Outpatient (CLI) | payer BC ==
[2020-04-28 12:26] VITALS: BP 114/80; PULSE 78; RESP 18; TEMP 98.4
--- NOTE | 2020-04-28 12:33 | P.PAINPG ---
Subjective Progress Note Date: 04/28/20 This is 54 years old female with a significant PMH of severe tracheobronchomalacia, cardiomyopathy, malika on cpap. has a chronic history of severe neck pain and low back pain with L4-S1 fusion and decompression, patient had back surgery several years ago and patient started having severe low back pain taking one year ago the pain radiated to the lower extremity associated with numbness and tingling sensation, she had left lower extremity weakness, patient also had neck pain with radiation to the upper extremity associated with some numbness and tingling sensation, she denies any weakness in the upper extremity but she reported the numbness and tingling continuous and increases with any activity, she reported that her low back pain is more prominent ,than her neck pain, she denies any fever or night sweats. She denies any change in the bowel movement or urination she denies any initiating event, patient had a history of lumbar fusion at L4 5 and L5-S1, she continues to use pain medication Ultram 50 mg twice a day and Tylenol 500 mg twice a day and she continued to have severe pain she denies any side effect of the medication recently did caudal JORGE LUIS for her she is here for follow up today. She had about 20% relief from the caudal epidural, however she was admitted a week later with a significant asthma attack and pneumonia. She is doing much better than he was in the hospital, however her pain has returned and she feels like it was exacerbated from laying in bed all day. Pain is still located in the low back with radiation to the bilateral lower extremities and lateral aspect of the foot. Notes numbness and tingling in her feet more prominently than her legs. Physical Examinations : -Constitutiona : Cooperative , not in acute distress . -HEENT : nech : supple , no Lymphadenopathy , normal thyroid size . : eyes : no ptosis , no icterus, no photophobia . - neurologic : Cranial nerve II to XII intact , no focal neurological deffecit . -psychatric : alert , oriented X 3 , appropriate affect , intact judgment and insight . -Lymphatic : no Lymphadenopathy . - musculoskeltal : Cervical Spine motor stregnth in the deltoid and biceps, normal right side , normal Left side motor stregnth biceps and the wrist extensors normal right side ,normal left side . motor stregnth in the triceps muscle . normal Right side , normal Left side deep tendon reflexes normal at the biceps , normal at Brachioradialis , normal at triceps. cervical facet loading test: Positive Bilaterally Spurling test= positive Right , positive left. Neck distraction test= positive Right , positive left. Bk sign= positive right, positive left . Multiple trigger point identified in the right side cervical paraspinal muscles Lumber spine moter stegnth lower extremities ,thigh and legs 5/5 Right side , 4/5 Left side deep tendon reflexes : normal Knee Jerk , normal ankle Jerk lumber facet Loading Test =positive Right , posiutive Left Range of motion of the lumbar spine Flexion 30 degrees, extension 10 degrees strait leg raising test = positive at 30 degree Fabere test= positive Right , and positive LT . Sever tenderness over the Sacroiliac joint on the Right , and Left sides Gaenslen test= positive right ,and positive left . Seated flexion test= positive right ,and positive Left . Results Comments: MRI of the lumbar spine reviewed and showed postsurgical changes from L4 to S1. Note I did note significant scar tissue in the lower levels of the lumbar spine as well as S1 around the nerve roots Assessment and Plan Plan: Assessment and plan=1-postlaminectomy pain syndrome lumbar area. 2-bilateral sacroiliitis. 3-myofascial pain syndrome and cervical paraspinal muscles. 4-cervical radiculopathy - We will perform caudal epidural with lysis of adhesions. In the future we can consider adding a muscle relaxant like tizanidine 4 mg 3 times a day. I spent 35 minutes reviewing the patient's chart, going over patient's medications, talking to the patient, and discussing plan of care PQRS Measure Charge Sheet Measure #130: Documentation of Current Meds in Medical Chart: Patient's medications documented in chart Measure #226: Tobacco Use: Screen & Cessation Intervention: Pt not a tobacco user Measure #111: Pneumonia Vaccination: Pneumococcal vaccine administered or previously received Measure #47: Advance Care Plan: Advance care planning discussed & documented, pt chose/unable to give Measure #412: Opioid Treatment Agreement: No documentation of signed opioid treatment agreement Measure #408: Opioid Therapy Follow-up Evaluation: Patient had NO f/u eval minimum every 3 months during opioid therapy Measure #317: Preventitive Care & Scrn High Bld Press & F/U: Normal blood pressure, f/u not required Measure #128: Body Mass Index (BMI) Screening & Follow-up: BMI documented ABOVE normal parameters - f/u documented Measure #131: Pain Assessment & Follow-up: Pain positive & plan documented, Follow-up scheduled Measure #431: Unhealthy Alcohol Use Preventative Care & Scrn: Patient not identified as an unhealthy alcohol user PQRS Narrative: Smoking Status Never smoker Blood Pressure 138/94 Pain Intensity [Lower Back] 6 Pain Intensity [Neck] 4 Scale Used Numeric (1 - 10) Hx Alcohol Use (MH) Yes PQRS Measure Charge Sheet PQRS Narrative: Smoking Status Never smoker Pain Intensity [Lower Back] 6 Scale Used Numeric (1 - 10) Hx Alcohol Use (MH) Yes Home Medications: Ambulatory Orders Montelukast [Singulair] 10 mg PO DAILY 04/16/17 Vitamin B Complex 1 cap PO DAILY 02/15/18 Budesonide [Pulmicort] 0.5 mg INHALATION BID PRN 08/23/18 L.acidoph,Paracasei, B.lactis [Probiotic] 1 cap PO DAILY 08/23/18 Multivitamins, Thera [Multivitamin (formulary)] 1 tab PO DAILY 08/23/18 Venlafaxine HCl ER [Effexor XR] 75 mg PO DAILY 08/23/18 Isosorbide Mononitrate [Isosorbide Mononitrate ER] 15 mg PO DAILY 09/26/18 Metoprolol Succinate (ER) [Toprol XL] 25 mg PO DAILY 09/26/18 calcium polycarbophiL [Fibercon] 625 mg PO DAILY PRN 09/26/18 Acetylcysteine [Mucomyst] 800 mg INHALATION DAILY 10/29/18 Naltrexone HCl/Bupropion HCl [Contrave ER 8-90 mg Tablet] 2 tab PO BID 01/23/19 Levalbuterol Tartrate [Xopenex Hfa Inhaler] 2 puff INHALATION Q6HR PRN 07/14/19 Omeprazole 40 mg PO DAILY 08/19/19 Estrogens, Conjugated Cream [Premarin Cream] 1 gm VAGINAL SUWE 11/07/19 Topiramate [Topamax] 50 mg PO BID 11/07/19 Budesonide/Formoterol Fumarate [Symbicort 160-4.5 Mcg Inhaler] 2 puff INHALATION RT-BID 03/04/20 traMADol HCL [Ultram] 50 mg PO BID PRN 03/04/20 tiZANidine HCL [Zanaflex] 4 mg PO Q12H PRN 04/01/20 Albuterol Inhaler [Ventolin Hfa Inhaler] 1 - 2 puff INHALATION RT-Q4H PRN 04/06/20 Cholecalciferol [Vitamin D3 (25 Mcg = 1000 Iu)] 25 mcg PO DAILY 04/06/20 Hydrocortisone Pr Cream [Proctosol-Hc 2.5%] 1 applic RECTAL TID PRN 04/06/20 predniSONE 0 mg PO DAILY 04/26/20 Controlled Substance Measures - Controlled Substance Measures Is patient prescribed a controlled substance at discharge?: No
== END ==
LOC: PNWHC3 12:09
PROVIDERS: ATTEND Anesthesiology
DX: M54.12 Radiculopathy, cervical region (principal); M53.3 Sacrococcygeal disorders, not elsewhere classified; M96.1 Postlaminectomy syndrome, not elsewhere classified; M79.18 Myalgia, other site; J45.909 Unspecified asthma, uncomplicated
CPT/HCPCS: 99211

== ENCOUNTER 2020-05-11 12:00 | Day surgery (SDC) | payer BC ==
[2020-05-10 11:39] VITALS: BMI 42.7
[2020-05-11 12:35] VITALS: TEMP 97.6
[2020-05-11 12:47] LABS: Glucose,Whole Blood 85 mg/dL (75-99)
[2020-05-11] MEDS ORDERED: methylPREDNISolone ACETATE 40 MG/ML 1 ML VIAL ONE (13:10)
[2020-05-11] MEDS ORDERED: IOPAMIDOL M200 10 ML VIAL ONE (13:10)
[2020-05-11] MEDS ORDERED: MIDAZOLAM 2 MG/2 ML VIAL ONE (13:10)
[2020-05-11] MEDS ORDERED: fentaNYL (PF) 50 MCG/ML 2 ML AMP ONE (13:10)
[2020-05-11] MEDS ORDERED: ROPIVACAINE 5MG/ML 20ML VIAL ONE (13:10)
[2020-05-11] MEDS ORDERED: LACTATED RINGERS 1,000 ML IV ONE (13:11)
[2020-05-11] MEDS ORDERED: LACTATED RINGERS 1,000 ML IV SCH (13:30)
--- NOTE | 2020-05-11 13:32 | P.PCN ---
Date of Procedure: 05/11/20 Description of Procedure: PREOP DIAGNOSIS: Lumbar postlaminectomy syndrome, and lumbar radiculopathy POSTOP DIAGNOSIS: Lumbar postlaminectomy syndrome, and lumbar radiculopathy PROCEDURE: Caudal epidural steroid injection with epidurolysis ( RACZ catheter) and epidurogram under fluoroscopic guidance ANESTHESIA: Local with 1% lidocaine; IV sedation with Versed 2mg , and 100 g of fentanyl Surgeon: Shannan Caceres EBL: None Specimens removed: None Fluoroscopic image: saved to electronic medical records PROCEDURE INDICATION: The patient with post-laminectomy syndrome with low back pain and radiculopathy radiating down in both legs, here for a caudal epidural steroid injection with epidurolysis. PROCEDURE DESCRIPTION: The patient was seen and identified in the preoperative area. Risks, benefits, complications, and alternatives were discussed with the patient. The patient agreed to proceed with the procedure and signed the consent. IV was started, and vital signs were stable. Patient was taken to the OR and time out was completed. The patient was placed in the prone position on procedure table and a pillow was placed under the abdomen to reduce lumbar lordosis. The lumbosacral area was prepped and draped in the usual sterile fashion. Vital signs were closely monitored during the procedure. Lateral view and the anterior-posterior plates of the sacrum were identified with infiltration of the area overlying the sacral hiatus with 1% lidocaine mixed with 0.5% preservative free ropivacaine total of 5 ml used .A 17 gauge RK epidural needle was used to advance through the sacral hiatus into the caudal epidural space. Isovue contrast 2 mL was injected and the position of the needle was verified to be in the midline. A Racz catheter was introduced into the epidural space and was advanced towards the L5-S1 interspace under direct fluoroscopic guidance. Multiple passes were made with the catheter for lysis of epidural adhesions. Depo-Medrol 40mg with 10 ml of preservative free normal saline was injected slowly. Additional spread was seen to L4 under fluoroscopy. The needle and the catheter were withdrawn intact. EPIDUROGRAM: Isovue dye 2 ml was injected with spread of the dye into the caudal epidural space and with spread cutoff at S1 prior to epidurolysis. Post epidurolysis dye 1 ml was injected and spread was seen to L4. COMPLICATIONS: None. DISPOSITION / PLANS: The patient was placed in a supine position and transferred to the recovery area in a stable condition for observation and was discharged from the recovery room after meeting discharge criteria. Home discharge instructions given to the patient by the staff. The patient was reexamined prior to discharge. The patient will schedule a follow up in the clinic in 4 weeks. Note: As per patient she is okay to use Isovue without any difficulty, she also had no issues with IV contrast dye. But patient had ALLERGIC issues with shellfish.
[2020-05-11] MEDS ORDERED: FLUID CONTINUATION IV ONE (13:35)
--- NOTE | 2020-05-11 13:40 | FL ---
Fluoroscopy INDICATION: Pain FINDINGS: Fluoroscopy time: 10 seconds. Images obtained: 0. IMPRESSIONS: 1. Documentation of fluoroscopy.
[2020-05-11 13:42] VITALS: RESP 16
[2020-05-11 13:51] VITALS: BP 116/73; PULSE 71
== END 2020-05-11 14:23 | disposition home or self-care (01) ==
LOC: ORPAIN 12:00
DX: M96.1 Postlaminectomy syndrome, not elsewhere classified (principal); M54.16 Radiculopathy, lumbar region; J40 Bronchitis, not specified as acute or chronic; R00.0 Tachycardia, unspecified; I10 Essential (primary) hypertension; G47.33 Obstructive sleep apnea (adult) (pediatric); M19.90 Unspecified osteoarthritis, unspecified site; Z88.6 Allergy status to analgesic agent; Z88.1 Allergy status to other antibiotic agents; Z91.018 Allergy to other foods; Z91.013 Allergy to seafood; Z98.1 Arthrodesis status; Z90.710 Acquired absence of both cervix and uterus
CPT/HCPCS: 62264; J2250; J1030; J3010; Q9966; J2795; C1894; 99152

== ENCOUNTER → 2020-05-31 | Outpatient (CLI) | payer BC ==
[2020-05-31 12:49] VITALS: BP 135/84; PULSE 74; RESP 20; TEMP 97.9
--- NOTE | 2020-05-31 13:17 | P.PN ---
Subjective Progress Note Date: 05/31/20 This is 55 years old female with a significant PMH of severe tracheobronchomalacia, cardiomyopathy, malika on cpap. has a chronic history of severe neck pain and low back pain with L4-5 ,L5-S1 fusion and decompression, patient had back surgery several years ago and patient started having severe low back pain taking one year ago the pain radiated to the lower extremity associated with numbness and tingling sensation, she had left lower extremity weakness, recently we did caudal epidural steroid injection with lysis of epidural adhesions which helped her low back pain, but she continued to have severe numbness in the left lower extremity Physical Examinations : -Constitutiona : Cooperative , not in acute distress . -HEENT : nech : supple , no Lymphadenopathy , normal thyroid size . : eyes : no ptosis , no icterus, no photophobia . - neurologic : Cranial nerve II to XII intact , no focal neurological deffecit . -psychatric : alert , oriented X 3 , appropriate affect , intact judgment and insight . -Lymphatic : no Lymphadenopathy . - musculoskeltal : Cervical Spine motor stregnth in the deltoid and biceps, normal right side , normal Left side motor stregnth biceps and the wrist extensors normal right side ,normal left side . motor stregnth in the triceps muscle . normal Right side , normal Left side deep tendon reflexes normal at the biceps , normal at Brachioradialis , normal at triceps. cervical facet loading test: Positive Bilaterally Spurling test= positive Right , positive left. Neck distraction test= positive Right , positive left. Bk sign= positive right, positive left . Multiple trigger point identified in the right side cervical paraspinal muscles Lumber spine moter stegnth lower extremities ,thigh and legs 5/5 Right side , 4/5 Left side deep tendon reflexes : normal Knee Jerk , normal ankle Jerk lumber facet Loading Test =positive Right , posiutive Left Range of motion of the lumbar spine Flexion 30 degrees, extension 10 degrees strait leg raising test = positive at 30 degree Fabere test= positive Right , and positive LT . Sever tenderness over the Sacroiliac joint on the Right , and Left sides Gaenslen test= positive right ,and positive left . Seated flexion test= positive right ,and positive Left . Results Comments: MRI of the lumbar spine reviewed and showed postsurgical changes from L4 to S1. Note I did note significant scar tissue in the lower levels of the lumbar spine as well as S1 around the nerve roots Assessment and Plan Plan: Assessment and plan=1-postlaminectomy pain syndrome lumbar area. 2-bilateral sacroiliitis. 3-myofascial pain syndrome and cervical paraspinal muscles. 4-cervical radiculopathy - Patient could benefit from repeate caudal epidural with lysis of adhesions. Prescription refill for Zanaflex 4 mg twice daily when necessary dispense 60 with 2 refills. PQRS Measure Charge Sheet Measure #130: Documentation of Current Meds in Medical Chart: Patient's medications documented in chart Measure #226: Tobacco Use: Screen & Cessation Intervention: Pt not a tobacco user Measure #111: Pneumonia Vaccination: Pneumococcal vaccine administered or previously received Measure #47: Advance Care Plan: Advance care planning discussed & documented, pt chose/unable to give Measure #412: Opioid Treatment Agreement: No documentation of signed opioid treatment agreement Measure #408: Opioid Therapy Follow-up Evaluation: Patient had NO f/u eval minimum every 3 months during opioid therapy Measure #317: Preventitive Care & Scrn High Bld Press & F/U: Normal blood pressure, f/u not required Measure #128: Body Mass Index (BMI) Screening & Follow-up: BMI documented ABOVE normal parameters - f/u documented Measure #131: Pain Assessment & Follow-up: Pain positive & plan documented, Follow-up scheduled Measure #431: Unhealthy Alcohol Use Preventative Care & Scrn: Patient not identified as an unhealthy alcohol user PQRS Narrative: Objective - Vital Signs Vital signs: Vital Signs Temp 97.9 F 05/31/20 12:47 Pulse 74 05/31/20 12:47 Resp 20 05/31/20 12:47 BP 135/84 05/31/20 12:47 Pulse Ox 98 05/31/20 12:47
== END ==
LOC: PNWHC3 12:27
PROVIDERS: ATTEND Specialist
DX: M96.1 Postlaminectomy syndrome, not elsewhere classified (principal); M46.1 Sacroiliitis, not elsewhere classified; M54.12 Radiculopathy, cervical region; M79.18 Myalgia, other site; I42.9 Cardiomyopathy, unspecified; G89.29 Other chronic pain
CPT/HCPCS: 99211

== ENCOUNTER → 2020-06-21 | Outpatient (CLI) | payer BC ==
[2020-06-21 19:50] LABS: Chol/HDL Ratio 3.29; LDL Cholesterol,Calculated 126.8 mg/dL (0.0-131.0); VLDL Calculation 22.2 mg/dL (5.00-40.00)
== END | disposition home or self-care (01) ==
LOC: LABWHC1 11:14
PROVIDERS: ATTEND Internal Medicine Interventional Cardiology
DX: E78.2 Mixed hyperlipidemia (principal)
CPT/HCPCS: 36415; 80061; 84450; 84460

== ENCOUNTER 2020-06-22 08:16 | Day surgery (SDC) | payer BC ==
[2020-06-18 13:14] VITALS: BMI 42.7
[~2020-06-22 08:16] MED LIST changes: -MIDAZOLAM 2 MG/2 ML VIAL IV PRN
[2020-06-22 08:41] VITALS: TEMP 97
[2020-06-22] MEDS ORDERED: IOPAMIDOL M200 10 ML VIAL ONE (08:52)
[2020-06-22] MEDS ORDERED: ROPIVACAINE 5MG/ML 20ML VIAL ONE (08:52)
[2020-06-22] MEDS ORDERED: MIDAZOLAM 2 MG/2 ML VIAL ONE (08:52)
[2020-06-22] MEDS ORDERED: fentaNYL (PF) 50 MCG/ML 2 ML AMP ONE (08:52)
[2020-06-22] MEDS ORDERED: methylPREDNISolone ACETATE 40 MG/ML 1 ML VIAL ONE (08:52)
[2020-06-22] MEDS ORDERED: IV FLUID CONTINUATION 1,000 ML IV ONE (09:13)
[2020-06-22 09:18] VITALS: RESP 18
--- NOTE | 2020-06-22 09:18 | FL ---
EXAMINATION TYPE: FL guided pain mgmt statistic DATE OF EXAM: 06/22/2020 CLINICAL HISTORY: Low back pain. TECHNIQUE: Fluoroscopy. COMPARISON: None. FINDINGS: Fluoroscopic guidance was provided during pain relief procedure performed by Dr. Dubose . A total of 24 seconds of fluoroscopic time was utilized during the procedure and 3 spot images are acquired. Images acquired shows needle localization lower lumbar spine with contrast injection, post surgical change noted. IMPRESSION: As Above.
[2020-06-22 09:28] VITALS: BP 110/62; PULSE 70
--- NOTE | 2020-06-22 10:28 | P.PCN ---
Date of Procedure: 06/22/20 Description of Procedure: PREOP DIAGNOSIS: Lumbar postlaminectomy syndrome POSTOP DIAGNOSIS: Lumbar postlaminectomy syndrome PROCEDURE: Caudal epidural steroid injection with epidurolysis and epidurogram under fluoroscopic guidance Imaging: Fluoroscopy was used, images where saved to the medical record ANESTHESIA: Local with 1% lidocaine 5 ml ; IV sedation with versed and fentanyl PROCEDURE INDICATION: The patient with post-laminectomy syndrome with low back pain and radiculopathy radiating down in both legs, here for a caudal epidural steroid injection with epidurolysis. PROCEDURE DESCRIPTION: The patient was seen and identified in the preoperative area. Risks, benefits, complications, and alternatives were discussed with the patient. The patient agreed to proceed with the procedure and signed the consent. IV was started, and vital signs were stable. Patient was taken to the OR and time out was completed. The patient was placed in the prone position on procedure table and a pillow was placed under the abdomen to reduce lumbar lordosis. The lumbosacral area was prepped and draped in the usual sterile fashion. Vital signs were closely monitored during the procedure. Lateral view and the anterior-posterior plates of the sacrum were identified with infiltration of the area overlying the sacral hiatus with 1% lidocaine. A 17 gauge epidural needle was used to advance through the sacral hiatus into the caudal epidural space. Omnipaque 180 dye 2cc was injected and the position of the needle was verified to be in the midline. A Racz catheter was introduced into the epidural space and was advanced towards the L5-S1 interspace under direct fluoroscopic guidance. Multiple passes were made with the catheter for lysis of epidural adhesions avoiding parasthesia and significant resistance. After epidurolysis was complete, 2cc of contrast dye was again used to evaluate spread of contrast. Contrast was spreading to the right L4 5 level, there is a filling defect on the left L5-S1 level After negative aspiration, I injected a solution consisting of 40mg of Depo- Medrol, 2ml of Preservative free normal saline and 2ml of ropivacaine 0.5% for a total of 5ml. Additional spread was seen to right L4 5 under fluoroscopy. The needle and the catheter were withdrawn intact. Epidurogram findings: Omnipaque 180 mg dye 2 ml was injected with spread of the dye into the caudal epidural space and with spread cutoff at L5 prior to epidurolysis on the right. Post epidurolysis dye 2 ml was injected and spread was seen to right L4 5 with no change in the left with an L5 mid vertebral body caudal spread. COMPLICATIONS: None. DISPOSITION / PLANS: The patient was placed in a supine position and transferred to the recovery area in a stable condition for observation and was discharged from the recovery room after meeting discharge criteria. Home discharge instructions given to the patient by the staff. The patient was reexamined prior to discharge. The patient will schedule a follow up as directed
== END 2020-06-22 09:47 | disposition home or self-care (01) ==
LOC: ORPAIN 08:16
PROVIDERS: ATTEND Hospitalist
DX: M96.1 Postlaminectomy syndrome, not elsewhere classified (principal); Z88.2 Allergy status to sulfonamides; Z88.6 Allergy status to analgesic agent; Z91.013 Allergy to seafood
CPT/HCPCS: 62264; J2250; J1030; J3010; Q9966; J2795; C1894; 99152

== ENCOUNTER → 2020-09-13 | Outpatient (CLI) | payer BC, MEDICARE ==
[2020-09-13 13:06] VITALS: BP 143/85; PULSE 81; RESP 20; TEMP 98.1
--- NOTE | 2020-09-13 13:20 | P.PN ---
Subjective Progress Note Date: 09/13/20 This is a 55-year-old morbidly obese lady with history of neck and lower back pain status post lumbar fusion. The patient had caudal epidural steroid injection with lysis of adhesions which helped her pain moderately as she states. This injection helped her numbness in the left foot significantly as she states. She still has been on the left side of her lower back. She also complains of neck pain and occasional numbness in both hands. The neck pain is mostly on the right side of her neck and goes to the right shoulder. Patient denies new-onset weakness, bowel/bladder incontinence, or any other signs or symptoms of cauda equina syndrome. There are no signs of acute intoxication, and no indications of medication diversion or overuse. In addition to above, 13-point review of systems is also negative for chest pain, shortness of breath, changes in vision, changes in hearing, new onset weakness, abdominal pain, diarrhea, extreme fatigue, malaise, fever, skin changes, homicidal or suicidal ideation, or bowel or bladder incontinence. Vital Signs: Reviewed in EMR Gen: AAOx3, NAD HEENT: PERRLA,hearing grossly normal Pulm: resp unlabored Neck: supple, trachea midline Neuro exam of the lower extremities: Hyperactive deep tendon reflexes bilaterally and symmetrically. Decreased muscle strength for knee flexion and extension to 4 out of 5 on the left side and also 4 out of 5 for left foot flexion-extension. Neuro exam of the upper extremities showed hyperactive reflexes bilaterally and symmetrically and normal muscle strength. Decreased right neck rotation due to increasing pain Josse's test: Positive on the left side Positive tenderness around the left sacroiliac joint. Positive distraction test on the left side Tenderness in the paravertebral musculature: Positive in the lumbar area Neuro: CN II-XII grossly intact, Imaging: Reviewed in EMR/chart Assessment: Lumbar postlaminectomy pain syndrome Left sacroiliitis Cervical spondylosis without myelopathy Morbid obesity Tracheobronchial malacia on O2 nasal cannula at home Plan: 1. Explanation: Opioid and psychological risk scores were reviewed. Diagnoses, prognoses, and multiple treatment options including but not limited to physical therapy, interventional therapies, adjuvant medical therapies, narcotic medication therapies, and surgery were discussed with the patient and all questions were answered to the patient's satisfaction. 2. Opioid agreement: Signed with the patient and the patient is warned not to use opioids while driving or before driving and not to combine opioids with benzodiazepines or alcohol. 3. Counseling: The patient was counseled extensively on SMOKING CESSATION, BODY MASS INDEX, EXERCISE. Specifically, the patient was instructed regarding the importance of smoking cessation, obesity, and exercise in the context of both chronic pain and overall health. 4. Procedures: Scheduled for left sacroiliac joint steroid injection under fluoroscopic guidance 5. Consultations: None 6. Investigations: None 7. Medications: Continue Zanaflex as needed 8. Disposition: Proceed with the above-mentioned procedure as soon as possible 9. Maps were reviewed and were appropriate. Objective - Vital Signs Vital signs: Vital Signs Temp 98.1 F 09/13/20 13:00 Pulse 81 09/13/20 13:00 Resp 20 09/13/20 13:00 BP 143/85 09/13/20 13:00 Pulse Ox 96 09/13/20 13:00
== END ==
LOC: PNWHC3 12:46
PROVIDERS: ATTEND Anesthesiology
DX: M96.1 Postlaminectomy syndrome, not elsewhere classified (principal); M46.1 Sacroiliitis, not elsewhere classified; M47.812 Spondylosis without myelopathy or radiculopathy, cervical region; E66.01 Morbid (severe) obesity due to excess calories; M83.9 Adult osteomalacia, unspecified; Z99.81 Dependence on supplemental oxygen; Z88.1 Allergy status to other antibiotic agents; Z91.013 Allergy to seafood; Z88.6 Allergy status to analgesic agent; Z91.018 Allergy to other foods; Z91.09 Other allergy status, other than to drugs and biological substances
CPT/HCPCS: 99211

== ENCOUNTER 2020-09-23 09:48 | Day surgery (SDC) | payer BC, MEDICARE ==
[2020-09-21 14:40] VITALS: BMI 43.7
[2020-09-23 10:11] VITALS: TEMP 96.3
[2020-09-23] MEDS ORDERED: MIDAZOLAM 2 MG/2 ML VIAL ONE (10:39)
[2020-09-23] MEDS ORDERED: fentaNYL (PF) 50 MCG/ML 2 ML AMP ONE (10:39)
[2020-09-23] MEDS ORDERED: ROPIVACAINE 5MG/ML 20ML VIAL ONE (10:39)
[2020-09-23] MEDS ORDERED: TRIAMCINOLONE ACETONIDE 40 MG/ML 1 ML VIAL ONE (10:39)
--- NOTE | 2020-09-23 10:48 | P.PCN ---
Date of Procedure: 09/23/20 Surgeon: Stefano Domínguez Pathology: none sent Condition: stable Disposition: PACU Description of Procedure: Preoperative diagnoses= sacroiliac joint dysfunction and sacroiliitis on the le ft side Postoperative diagnoses= same as preoperative diagnosis. Procedure= sacroiliac joint steroid injection under fluoroscopic guidance. Anesthesia= local anesthesia with lidocaine 1% and IV moderate conscious sedation with fentanyl and Versed Estimated blood loss=minimal. Procedure indication= the patient had a history of severe chronic low back pain, diagnosed with sacroiliitis and lumbar sacral facet arthropathy unresponsive to conservative treatment. Procedure description= the patient was seen and identified in the preoperative holding area, risks and benefits and alternative of the procedure and possible complications discussed with the patient, patient signed the consent. an IV was started, and vital signs were monitored and were stable throughout the pro cedure, patient was placed in the prone position or table and the lumbosacral area was prepped and draped with a sterile fashion, vital signs were closely monitored during the procedure.The sacroiliac joint was identified on the AP view of fluoroscopy then the C-arm was tilted to the contralateral oblique position(Rt oblique) to superimpose the anterior and posterior joint lines on each other and to have a unified joint line with the target point at the inferior one third of this line. I used 22-gauge 3-1/2 inch Quincke spinal needle for this procedure and after getting into the sacroiliac joint I injected 40 mg of Kenalog +2 MLS of Ropivacaine 0.5%. Patient tolerated the procedure well without any complication, The patient returned to supine position after the back was cleaned and a Band- Aid applied, the patient transported to recovery room in stable condition and he was monitored for 30 minutes before she was discharged home in stable condition . patient will follow up with the pain clinic in a few weeks. A copy of the needle placement was saved to the C-arm machine.
[2020-09-23] MEDS ORDERED: IV FLUID CONTINUATION 1,000 ML IV ONE (11:00)
[2020-09-23 12:43] VITALS: BP 108/71; PULSE 74; RESP 18
--- NOTE | 2020-09-23 13:06 | FL ---
EXAMINATION TYPE: FL guided pain mgmt statistic DATE OF EXAM: 09/23/2020 FLUOROSCOPY Fluoroscopy time of 5 seconds was used during left SI joint steroid injection. 1 image/s document/s the procedure.
== END 2020-09-23 12:55 | disposition home or self-care (01) ==
LOC: ORPAIN 09:48
PROVIDERS: ATTEND Anesthesiology
DX: M46.1 Sacroiliitis, not elsewhere classified (principal)
CPT/HCPCS: 27096; 94660; J2250; J3301; J3010; J2795

== ENCOUNTER → 2020-10-01 | Outpatient (CLI) | payer BC, MEDICARE ==
[2020-10-02 01:40] LABS: Immunoglobulin E 7.73 IU/mL (0.00-114.00)
[2020-10-02 01:42] LABS: Clam IgE <0.10 kU/L; Scallop IgE <0.10 kU/L; Walnut IgE (Food) <0.10 kU/L
[2020-10-02 01:43] LABS: Shrimp IgE <0.10 kU/L; Soybean IgE <0.10 kU/L
[2020-10-02 01:44] LABS: Codfish IgE <0.10 kU/L; Peanut IgE <0.10 kU/L
[2020-10-02 01:45] LABS: Egg White IgE <0.10 kU/L; Elm IgE <0.10 kU/L; Oak IgE <0.10 kU/L
[2020-10-02 01:46] LABS: Birch IgE <0.10 kU/L; Ragweed,Common IgE <0.10 kU/L
[2020-10-02 01:47] LABS: Alternaria alternata IgE <0.10 kU/L; Aspergillus fumagatus IgE <0.10 kU/L; Cladosporian herbarum IgE <0.10 kU/L; Maple (Box Elder) IgE <0.10 kU/L
[2020-10-02 01:48] LABS: Cockroach IgE <0.10 kU/L
[2020-10-02 01:51] LABS: Cat Epith & Dander IgE <0.10 kU/L; Dermato. farinae IgE <0.10 kU/L; Dog Dander IgE <0.10 kU/L
[2020-10-02 04:55] LABS: Red Top (Bentgrass) IgE <0.10 kU/L
[2020-10-02 05:17] LABS: Immunoglobulin E 8.02 IU/mL (0.00-114.00)
== END | disposition home or self-care (01) ==
LOC: LABWHC1 15:52
PROVIDERS: ATTEND Internal Medicine Critical Care Medicine
DX: J45.909 Unspecified asthma, uncomplicated (principal)
CPT/HCPCS: 36415; 82785; 86003

== ENCOUNTER → 2020-11-08 | Outpatient (CLI) | payer BC, MEDICARE ==
[2020-11-08 13:00] VITALS: BP 143/87; PULSE 76; RESP 18; TEMP 98.4
--- NOTE | 2020-11-08 13:16 | P.PN ---
Subjective Progress Note Date: 11/08/20 This is 55 years old female with a significant PMH of severe tracheobronchomalacia, cardiomyopathy, ITZ on cpap. has a chronic history of severe neck pain and low back pain with L4-5 ,L5-S1 fusion ,and decompression, patient had back surgery several years ago and patient started having severe low back pain, the pain radiate to the lower extremity associated with numbness and tingling sensation, she had left lower extremity weakness, previously we did caudal epidural steroid injection with lysis of epidural adhesions which helped her low back pain significantly and she got more than 70% improvement of her pain , including the pain is came back and she is complaining of severe pain and numbness mostly in the left lower extremity, she did physical therapy in the past and she was discharged from physical therapy because of her chronic condition, and she continued to use Zanaflex 4 mg when necessary Physical Examinations : -Constitutiona : Cooperative , not in acute distress . -HEENT : nech : supple , no Lymphadenopathy , normal thyroid size . : eyes : no ptosis , no icterus, no photophobia . - neurologic : Cranial nerve II to XII intact , no focal neurological deffecit . -psychatric : alert , oriented X 3 , appropriate affect , intact judgment and insight . -Lymphatic : no Lymphadenopathy . - musculoskeltal : s Lumber spine moter stegnth lower extremities ,thigh and legs 5/5 Right side , 4/5 Left side deep tendon reflexes : normal Knee Jerk , normal ankle Jerk lumber facet Loading Test =positive Right , posiutive Left Range of motion of the lumbar spine Flexion 30 degrees, extension 10 degrees strait leg raising test = positive at 30 degree Fabere test= positive Right , and positive LT . Sever tenderness over the Sacroiliac joint on the Right , and Left sides Gaenslen test= positive right ,and positive left . Seated flexion test= positive right ,and positive Left . Results MRI of the lumbar spine reviewed and showed postsurgical changes from L4 to S1. Note I did note significant scar tissue in the lower levels of the lumbar spine as well as S1 around the nerve roots Assessment and Plan Plan: Assessment and plan=1-postlaminectomy pain syndrome lumbar area. 2-bilateral sacroiliitis. 3-myofascial pain syndrome and cervical paraspinal muscles. 4-cervical radiculopathy - Patient could benefit from repeate caudal epidural steroid injections with lysis of adhesions. - PQRS measures = - Patient's medications are documented in the chart. -Tobacco use is negative and counseling.Given. -Patient's has not received pneumococcal vaccine. -Advanced care planning discussed, patient not eligible. -Opiate contract not signed. -Pain positive and follow-up visit/procedure is scheduled. -Patient's blood pressure measured [ 143/87 ] , and documented in the record ,and patient will follow up with the primary care. -Patient's weight was measured and body mass index [43 ] above the, normal limits and counseling was done. and patient instructed to follow-up with the primary care physician. -Patient was not identified as an unhealthy alcohol user Objective - Vital Signs Vital signs: Vital Signs Temp 98.4 F 11/08/20 12:55 Pulse 76 11/08/20 12:55 Resp 18 11/08/20 12:55 BP 143/87 11/08/20 12:55 Pulse Ox 96 11/08/20 12:55
== END ==
LOC: PNWHC3 12:48
PROVIDERS: ATTEND Specialist
DX: M96.1 Postlaminectomy syndrome, not elsewhere classified (principal); M46.1 Sacroiliitis, not elsewhere classified; M79.18 Myalgia, other site; M54.12 Radiculopathy, cervical region; Z88.6 Allergy status to analgesic agent; Z88.8 Allergy status to other drugs, medicaments and biological substances; Z88.1 Allergy status to other antibiotic agents; Z91.013 Allergy to seafood; Z91.018 Allergy to other foods
CPT/HCPCS: 99211

== ENCOUNTER → 2020-12-09 | Outpatient (CLI) | payer BC, MEDICARE ==
[2020-12-09 19:11] LABS: Basophils # (A) 0.03 X 10*3/uL (0.00-0.10); Basophils % (A) 0.5 %; Eosinophils # (A) 0.11 X 10*3/uL (0.04-0.35); Eosinophils % (A) 1.7 %; HCT 47.1 % (37.2-46.3); HGB 15.1 g/dL (12.0-15.0); Lymphocytes # (A) 1.85 X 10*3/uL (0.90-5.00); Lymphocytes % (A) 28.5 %; MCH 28.2 pg (27.0-32.0); MCHC 32.1 g/dL (32.0-37.0); Mean Platelet Volume 11.4 fL (9.5-12.2); Monocytes # (A) 0.59 X 10*3/uL (0.20-1.00); Monocytes % (A) 9.1 %; Neutrophils # (A) 3.88 X 10*3/uL (1.80-7.70); Neutrophils % (A) 59.9 %; Platelet Count 247 X 10*3/uL (140-440); RBC 5.35 X 10*6/uL (4.10-5.20); RDW 13.1 % (11.5-14.5); WBC 6.48 X 10*3/uL (4.50-10.00)
[2020-12-10 12:51] LABS: Chol/HDL Ratio 3.24 Ratio; LDL Cholesterol,Calculated 140.9 mg/dL (0.0-131.0)
== END | disposition home or self-care (01) ==
LOC: LABWHC1 10:34
PROVIDERS: ATTEND Family Medicine
DX: Z00.00 Encounter for general adult medical examination without abnormal findings (principal); E04.2 Nontoxic multinodular goiter; E55.9 Vitamin D deficiency, unspecified; R73.01 Impaired fasting glucose
CPT/HCPCS: 36415; 80053; 80061; 82306; 83036; 84443; 85025

== ENCOUNTER 2020-12-14 07:02 | Day surgery (SDC) | payer BC, MEDICARE ==
[2020-12-14 07:25] VITALS: TEMP 97.2
[2020-12-14] MEDS ORDERED: LIDOCAINE 1% (10MG/ML) FOR IV START INTRADERMA ONE (07:50)
[2020-12-14] MEDS ORDERED: ROPIVACAINE 5MG/ML 20ML VIAL ONE (08:05)
[2020-12-14] MEDS ORDERED: IOPAMIDOL M200 10 ML VIAL ONE (08:05)
[2020-12-14] MEDS ORDERED: TRIAMCINOLONE ACETONIDE 40 MG/ML 1 ML VIAL ONE (08:05)
[2020-12-14] MEDS ORDERED: MIDAZOLAM 2 MG/2 ML VIAL ONE (08:05)
[2020-12-14] MEDS ORDERED: fentaNYL (PF) 50 MCG/ML 2 ML AMP ONE (08:05)
--- NOTE | 2020-12-14 08:20 | P.PCN ---
Date of Procedure: 12/14/20 Surgeon: Stefano Domínguez Pathology: none sent Condition: stable Disposition: PACU Description of Procedure: PREOP DIAGNOSIS: Lumbar postlaminectomy syndrome. POSTOP DIAGNOSIS: Lumbar postlaminectomy syndrome. PROCEDURE: Caudal epidural steroid injection with epidurolysis and epidurogram under fluoroscopic guidance ANESTHESIA: Local with 1% lidocaine; IV moderate conscious sedation EBL: Minimal. PROCEDURE INDICATION: The patient with post-laminectomy syndrome with low back pain and radiculopathy radiating down in both legs, here for a caudal epidural steroid injection with epidurolysis. PROCEDURE DESCRIPTION: The patient was seen in the preoperative holding area consent was obtained then he was brought into the procedure room and placed in prone position. Skin was prepped with ChloraPrep and draped in a sterile manner. Lidocaine 1% was used to numb the skin up at the target point that was chosen as follows: The lateral view of fluoroscopy was used to identify the sacral hiatus and then after localizing the skin with lidocaine 1% I used 18- gauge epidural needle with a plastic sheath to go through the sacral hiatus and into the sacral canal and then injected 1 mL of Omnipaque for verification of needle tip position. After that the metal core of the needle was taken out and the plastic sheath was kept in the sacral canal. Then Racz catheter was introduced through the plastic sheath and into the epidural space at the sacral canal using the AP view of fluoroscopy up to L5-S1 level then I injected 2 MLS of Omnipaque which showed spread in the epidural space and after few back and forth movements of the Racz catheter I injected 40 mg of Kenalog +2 MLS of Ropivacaine 0.5% +3 MLS of preservative-free normal saline to a total volume of 10 MLS in the epidural space. Patient tolerated procedure well. A copy of the needle placement x-ray was saved to the C-arm machine. COMPLICATIONS: None. DISPOSITION / PLANS: The patient was placed in a supine position and transferred to the recovery area in a stable condition for observation and was discharged from the recovery room after meeting discharge criteria. Home discharge instructions given to the patient by the staff. The patient was reexamined prior to discharge. The patient will schedule a follow up in the clinic in 2-4 weeks.
[2020-12-14 08:45] VITALS: RESP 16
[2020-12-14 08:50] VITALS: BP 98/57; PULSE 75
[2020-12-14] MEDS ORDERED: IV FLUID CONTINUATION 500 ML IV ONE (09:15)
--- NOTE | 2020-12-14 09:36 | FL ---
EXAMINATION TYPE: FL guidance operating room DATE OF EXAM: 12/14/2020 FLUOROSCOPY Fluoroscopy time of 13 seconds was used during caudal epidural with lysis. 3 image/s document/s the procedure.
== END 2020-12-14 09:22 | disposition home or self-care (01) ==
LOC: ORPAIN 07:02
PROVIDERS: ATTEND Anesthesiology
DX: M96.1 Postlaminectomy syndrome, not elsewhere classified (principal); J45.909 Unspecified asthma, uncomplicated; G47.33 Obstructive sleep apnea (adult) (pediatric); Z88.1 Allergy status to other antibiotic agents; Z88.6 Allergy status to analgesic agent; Z90.710 Acquired absence of both cervix and uterus
CPT/HCPCS: 62264; J2250; J3301; J3010; Q9966; J2795; C1894; 99152

== ENCOUNTER → 2021-06-23 | Outpatient (CLI) | payer BC, MEDICARE ==
[2021-06-23 14:30] LABS: Basophils # (A) 0.03 X 10*3/uL (0.00-0.10); Basophils % (A) 0.4 %; Eosinophils # (A) 0.14 X 10*3/uL (0.04-0.35); Eosinophils % (A) 1.9 %; HCT 41.1 % (37.2-46.3); HGB 12.8 g/dL (12.0-15.0); Immature Grans, Automated 0.1 %; Lymphocytes # (A) 2.12 X 10*3/uL (0.90-5.00); Lymphocytes % (A) 28.5 %; MCH 26.8 pg (27.0-32.0); MCHC 31.1 g/dL (32.0-37.0); MCV 86.2 fL (80.0-97.0); Mean Platelet Volume 11.6 fL (9.5-12.2); Monocytes # (A) 0.49 X 10*3/uL (0.20-1.00); Monocytes % (A) 6.6 %; NRBC Per 100 WBC 0 /100 WBCS (0.0-0.0); Neutrophils # (A) 4.65 X 10*3/uL (1.80-7.70); Neutrophils % (A) 62.5 %; Platelet Count 279 X 10*3/uL (140-440); RBC 4.77 X 10*6/uL (4.10-5.20); RDW 14.1 % (11.5-14.5); WBC 7.44 X 10*3/uL (4.50-10.00)
[2021-06-23 15:19] LABS: Chol/HDL Ratio 2.58 Ratio; LDL Cholesterol,Calculated 76.4 mg/dL (0.0-131.0)
== END | disposition home or self-care (01) ==
LOC: LABWHC1 07:54
PROVIDERS: ATTEND Family Medicine
DX: E78.5 Hyperlipidemia, unspecified (principal); D22.9 Melanocytic nevi, unspecified; R73.01 Impaired fasting glucose
CPT/HCPCS: 36415; 80061; 83036; 85025

== ENCOUNTER → 2021-08-03 | Outpatient (CLI) | payer BC, MEDICARE ==
[2021-08-03 15:25] LABS: African American GFR (CKD) 81.6 (60.0-200.0); Anion Gap 13.8 mmol/L (10.00-18.00); BUN/Creat Ratio 13.88 Ratio (12.00-20.00); Blood Urea Nitrogen 12.8 mg/dL (9.0-27.0); Calcium 9.7 mg/dL (8.7-10.3); Carbon Dioxide 29.2 mmol/L (20.0-27.5); Non-African American GFR(CKD) 70.4 (60.0-200.0); Potassium 3.5 mmol/L (3.5-5.5)
== END | disposition home or self-care (01) ==
LOC: LABWHC1 08:26
PROVIDERS: ATTEND Internal Medicine Interventional Cardiology
DX: E87.5 Hyperkalemia (principal)
CPT/HCPCS: 36415; 80048

== ENCOUNTER → 2022-01-03 | Outpatient (CLI) | payer BC, MEDICARE ==
--- NOTE | 2022-01-04 08:31 | MM ---
Reason for Exam: Screening (asymptomatic). Last mammogram was performed 2 year(s) and 0 month(s) ago. Patient History: Menarche at age 15. First Full-Term at age 25. Hysterectomy at age 46. Postmenopausal. Hormonal Contraceptives for 3 years from age 20 until age 23. Risk Values: Joyce 5 year model risk: 1.0%. NCI Lifetime model risk: 7.5%. Prior Study Comparison: 04/06/2017 Bilateral Screening Mammogram, [facility]. 11/22/2018 Bilateral Screening Mammogram, [facility]. 01/20/2020 Bilateral Screening Mammogram, [facility]. Tissue Density: The breast tissue is heterogeneously dense. This may lower the sensitivity of mammography. Findings: Analyzed By CAD. There is no suspicious group of microcalcifications or new suspicious mass in either breast. Overall Assessment: Benign, BI-RAD 2 Management: Screening Mammogram of both breasts in 1 year. A clinical breast exam by your physician is recommended on an annual basis and results should be correlated with mammographic findings. Electronically signed and approved by: Kodi Santamaria M.D. Radiologis
== END | disposition home or self-care (01) ==
LOC: RADMAMWWP 15:09
PROVIDERS: ATTEND Family Medicine
DX: Z12.31 Encounter for screening mammogram for malignant neoplasm of breast (principal); Z78.0 Asymptomatic menopausal state
CPT/HCPCS: 77063; 77067

== ENCOUNTER → 2022-01-23 | Outpatient (CLI) | payer BC, MEDICARE ==
--- NOTE | 2022-01-23 12:22 | FL ---
EXAMINATION TYPE: FL barium swallow DATE OF EXAM: 01/23/2022 CLINICAL HISTORY: Dysphagia. History of shortness of breath and reflux. New epigastric pain and nause a. History of prior balloon dilatation of esophagus related to tracheal stent. History of prior gastr ic sleeve surgery. TECHNIQUE: Single contrast esophagram is performed utilizing barium. A total of 40 seconds of fluoros copic time was utilized during procedure and 40 images obtained. COMPARISON: None. FINDINGS: The patient swallowed contrast without difficulty or delay. Some episodes of abnormal seco ndary and tertiary contraction. No proximal diverticulum. No stricture or intraluminal mass. There is good flow of contrast along the diaphragmatic hiatus into proximal stomach and subsequent flow into gastric sleeve. There is good flow from distal sleeve into pylorus and duodenal sweep. Patient remain s asymptomatic. There is no evidence of contrast extravasation to suggest leak. IMPRESSION: Mild underlying esophageal dysmotility. No fixed hiatal hernia.
== END | disposition home or self-care (01) ==
LOC: RADUSWWP 08:55
PROVIDERS: ATTEND Surgery Plastic and Reconstructive Surgery
DX: K22.4 Dyskinesia of esophagus (principal); R13.10 Dysphagia, unspecified
CPT/HCPCS: 74220

== ENCOUNTER 2022-01-25 08:20 | Day surgery (SDC) | payer BC, MEDICARE ==
[2022-01-24 09:11] VITALS: BMI 41.8
--- NOTE | 2022-01-25 07:43 | P.GSHP ---
History of Present Illness H&P Date: 01/25/22 CHIEF COMPLAINT: GERD and colon screen HISTORY OF PRESENT ILLNESS: The patient is a 56-year-old female who presents with gastroesophageal reflux disease and need for colon screen. Upper and lower endoscopy were offered for further evaluation and management. PAST MEDICAL HISTORY: Please see list. PAST SURGICAL HISTORY: Please see list. MEDICATIONS: Please see list. ALLERGIES: Please see list. SOCIAL HISTORY: No illicit drug use FAMILY HISTORY: No reports of Crohn disease or ulcerative colitis. REVIEW OF ORGAN SYSTEMS: CONSTITUTIONAL: No reports of fevers or chills. GI: Denies any blood in stools or constipation. PHYSICAL EXAM: VITAL SIGNS: Stable GENERAL: Well-developed pleasant in no acute distress. HEENT: No scleral icterus. Extraocular movements grossly intact. Moist buccal mucosa. NECK: Supple without lymphadenopathy. CHEST: Unlabored respirations. Equal bilateral excursions. CARDIOVASCULAR: Regular rate and rhythm. Distal 2+ pulses. ABDOMEN: Soft, nondistended. MUSCULOSKELETAL: No clubbing, cyanosis, or edema. ASSESSMENT: 1. Gastroesophageal reflux disease 2. Colon screen. PLAN: 1. Recommend proceeding with an upper and lower endoscopy Past Medical History Past Medical History: Asthma, Chest Pain / Angina, COPD, Diabetes Mellitus, GERD/Reflux, Hyperlipidemia, Hypertension, Musculoskeletal Disorder, Osteoarthritis (OA), Pneumonia, Sleep Apnea/CPAP/BIPAP, Thyroid Disorder Additional Past Medical History / Comment(s): Diet Controlled Diabetes, prone to hypoglycemia. Episodes of lightheadedness and near syncope. Severe tracheobronchomalacia. 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 Occasional tachycardia especially when eating and with activity, controlled with Metoprolol. CPAP use. Thyroid nodules. Spinal stenosis. Vitamin D Deficiency, Iron Deficiency Anemia, low potassium with HCTZ on potassium now. Migraines. Bruises easily. Oxygen at 2-3 liters at hs and PRN. POTS syndrome. Mild sliding hiatal hernia. Bronchietasis. History of Any Multi-Drug Resistant Organisms: None Reported Date of last positivie culture/infection: 03/2018 MDRO Source:: Lung Past Surgical History: Appendectomy, Back Surgery, Bariatric Surgery, Section, Cholecystectomy, Heart Catheterization, Hysterectomy, Orthopedic Surgery, Tonsillectomy Additional Past Surgical History / Comment(s): Gastric sleeve with hiatal hernia repair, spinal fusion/decompression L4-L5 and S1, bilateral shoulder arthroscopies, 3 laparotomies due to pain/ovarian cyst/adhesions, D&Cs X2 after miscarriages, lipoma removed from left side of back, colonoscopy, EGD's, tracheal stent removal X3, trachealbronchoplasty, tracheal resection 11/17. Past Anesthesia/Blood Transfusion Reactions: Previous Problems w/ Anesthesia, Motion Sickness, Postoperative Nausea & Vomiting (PONV) Additional Past Anesthesia/Blood Transfusion Reaction / Comment(s): Difficult IV start, difficult intubation("weak airway") - states they use airway band, states occasional memory issues after anesthesia. Past Psychological History: Anxiety, Depression Additional Psychological History / Comment(s): No issues with anxiety and depression now. Smoking Status: Never smoker Past Alcohol Use History: Rare Past Drug Use History: None Reported - Past Family History Father Family Medical History: Cancer Additional Family Medical History / Comment(s): . Mother Family Medical History: Cancer Additional Family Medical History / Comment(s): . Brother(s) Family Medical History: Pulmonary Embolus Medications and Allergies Home Medications Medication Instructions Recorded Confirmed Type Montelukast [Singulair] 10 mg PO DAILY 04/16/17 01/24/22 History Vitamin B Complex 1 cap PO DAILY 02/15/18 01/24/22 History L.acidoph,Paracasei, B.lactis 1 cap PO DAILY 08/23/18 01/24/22 History [Probiotic] Multivitamins, Thera [Multivitamin 1 tab PO DAILY 08/23/18 01/24/22 History (formulary)] Metoprolol Succinate (ER) [Toprol 25 mg PO QAM 09/26/18 01/24/22 History XL] calcium polycarbophiL [Fibercon] 625 mg PO DAILY 09/26/18 01/24/22 History Omeprazole 40 mg PO BID PRN 08/19/19 01/24/22 History traMADol HCL [Ultram] 50 mg PO BID PRN 03/04/20 01/24/22 History tiZANidine HCL [Zanaflex] 4 mg PO BID PRN 04/01/20 01/24/22 History Ipratropium-Albuterol Nebulize 3 ml INHALATION BID PRN 05/10/20 01/24/22 History [Duoneb 0.5 mg-3 mg/3 ml Soln] Promethazine HCl [Promethazine HCl 12.5 mg PO Q6H PRN 05/25/20 01/24/22 History Oral Elixir] Acetaminophen Tab [Tylenol Tab] 1,000 mg PO Q6H PRN 03/06/21 01/24/22 History Albuterol Sulfate [Proair Hfa] 2 puff INHALATION QID 03/06/21 01/24/22 History Atorvastatin [Lipitor] 20 mg PO HS 03/06/21 01/24/22 History Benzocaine/Menthol Lozeng [Cepacol 1 lozenge MUCOUS MEM Q4HR PRN 03/06/21 01/24/22 History lozenge] Benzonatate [Tessalon Perles] 200 mg PO TID PRN 03/06/21 01/24/22 History Calcium Carbonate [Tums] 1,000 mg PO TID PRN 03/06/21 01/24/22 History Cholecalciferol [Vitamin D3 (125 125 mcg PO SA 03/06/21 01/24/22 History Mcg = 5000 Iu)] Digestive Enzymes 1 cap PO DAILY 03/06/21 01/24/22 History Fluticasone Nasal [place] [Flonase 2 spr EA NOSTRIL QAM 03/06/21 01/24/22 History Nasal [place]] Sennosides [Senna] 8.6 mg PO BID PRN 03/06/21 01/24/22 History Sodium Chloride 0.9% Nebuliz 1.5 ml INHALATION BID PRN 03/06/21 01/24/22 History [Saline 0.9% For Nebulization] Triamterene-Hctz 37.5-25Mg 1 tab PO DAILY 03/06/21 01/24/22 History [Maxzide 37.5-25] Budesonide/Glycopyr/Formoterol 2 puff INHALATION BID 01/24/22 01/24/22 History [Breztri Aerosphere Inhaler] Docusate [Colace] 100 mg PO BID 01/24/22 01/24/22 History Gabapentin [Neurontin] 100 mg PO TID 01/24/22 01/24/22 History Potassium Chloride ER [K-Dur 20] 20 meq PO DAILY 01/24/22 01/24/22 History Allergies Allergy/AdvReac Type Severity Reaction Status Date / Time cat dander Allergy eye Verified 01/24/22 08:19 swelling ciprofloxacin [From Cipro] Allergy Itching Verified 01/24/22 08:19 gluten Allergy Abdominal Verified 01/24/22 08:19 Pain/HEADACHES, constipation NSAIDS (Non-Steroidal AdvReac Abdominal Verified 01/24/22 08:19 Anti-Inflamma Pain shellfish derived [Shellfish] AdvReac Vomiting Verified 01/24/22 08:19
[~2022-01-25 08:20] MED LIST changes: +LIDOCAINE 1% (10MG/ML) FOR IV START INTRADERMA PRN
[2022-01-25 09:46] VITALS: TEMP 96.9
[2022-01-25 10:12] LABS: Glucose,Whole Blood 87 mg/dL (70-110)
[2022-01-25] MEDS ORDERED: ONDANSETRON 4 MG/2 ML VIAL ONE (10:29)
[2022-01-25] MEDS ORDERED: ONDANSETRON 4 MG/2 ML VIAL IVP ONE (10:31)
[2022-01-25] MEDS ORDERED: PROPOFOL 10 MG/ML 20 ML VIAL IV ONE (10:33)
[2022-01-25] MEDS ORDERED: KETAMINE 10 MG/ML 20 ML VIAL ONE (10:33)
[2022-01-25] MEDS ORDERED: LIDOCAINE 2% INJ 20 MG/ML (2 ML VIAL) ONE (10:33)
--- NOTE | 2022-01-25 11:10 | P.PCN ---
Date of Procedure: 01/25/22 Description of Procedure: PREOPERATIVE DIAGNOSIS: Status post sleeve gastrectomy. Gastroesophageal reflux disease. POSTOPERATIVE DIAGNOSIS: Status post sleeve gastrectomy. Gastroesophageal reflux disease. Erosive esophagitis, chronic. Chronic superficial gastritis. Presbyesophagus Yeast esophagitis OPERATION: Esophagogastroduodenoscopy with cold forceps biopsies along the antrum and duodenum SURGEON: Sherie Cabrera MD ANESTHESIA: MAC. INDICATIONS: The patient is a 56-year-old female who presents with a history of sleeve gastrectomy with severe gastroesophageal reflux disease. Benefits and risks of the procedure were described. Informed consent was obtained. DESCRIPTION: The patient was brought into the endoscopy suite and laid in the left lateral decubitus position. An Olympus gastroscope was passed along the posterior oropharynx down to the distal esophagus where the squamocolumnar junction was at 37 centimeters from the incisors remarkable for chronic erosive esophagitis, LA grade A without ulceration. The stomach was entered. The sleeve reservoir moderately large allowing easy retroflexion of the scope to view the lower esophageal valve. Chronic gastritis albeit mild was found along the antrum with cold biopsies obtained. The first through third portion of the duodenum was examined and biopsies obtained. Yeast along the esophagus was identified and biopsies obtained. The stomach was desufflated. The patient tolerated the procedure well. FINDINGS: No acute ulceration found along her sleeve. No corkscrewing sleeve gastrectomy. Squamocolumnar junction at 37 cm from the incisors. Moderate large gastric reservoir with prior history of sleeve gastrectomy allowing easy retroflexion of the gastroscope to view the lower esophageal valve. LA grade B erosive esophagitis. No active duodenitis. Chronic gastritis. Esophagus with yeast RECOMMENDATIONS: Upper endoscopy as needed.
--- NOTE | 2022-01-25 11:11 | P.PCN ---
Date of Procedure: 01/25/22 Description of Procedure: PREOPERATIVE DIAGNOSIS: Colonoscopy screening. Personal history colon polyps POSTOPERATIVE DIAGNOSIS: Colonoscopy screening. Personal history colon polyps OPERATION: Colonoscopy to the ascending colon. SURGEON: Sherie Cabrera MD. ANESTHESIA: MAC. INDICATIONS: The patient is a 56-year-old female who presents for colonoscopy screening. Benefits and risks were described and informed consent was obtained. DESCRIPTION OF PROCEDURE: The patient had undergone Sutab prep. The patient had been brought into the operating room and laid in the left lateral decubitus position. After adequate intravenous sedation, the rectum was examined with 2% lidocaine jelly. No external hemorrhoids were encountered. The rectal tone was within normal limits. No lesions were palpated in the rectal vault. An Olympus colonoscope was advanced ascending colon despite multiple abdominal pressure. The prep was excellent. No scattered diverticulosis was encountered. No colonic polyps were found. No evidence of focal colitis was found. Retroflexion of the scope demonstrated grade 2 internal hemorrhoids without active bleeding or inflammation. The colon was desufflated. The patient had tolerated the procedure well. Withdrawal time was over 6 minutes. FINDINGS: Aronchick preparation quality scale 1 (1-5) Internal hemorrhoids, grade 2 No external prolapsed hemorrhoids. No arteriovenous malformations. No adenomatous polyps. No focal colitis. Highly redundant sigmoid colon RECOMMENDATIONS: Lower endoscopy in 5 years, 2026 Plan - Discharge Summary Discharge Rx Participant: No New Discharge Prescriptions: Continue Montelukast [Singulair] 10 mg PO DAILY Vitamin B Complex 1 cap PO DAILY Multivitamins, Thera [Multivitamin (formulary)] 1 tab PO DAILY L.acidoph,Paracasei, B.lactis [Probiotic] 1 cap PO DAILY calcium polycarbophiL [Fibercon] 625 mg PO DAILY Metoprolol Succinate (ER) [Toprol XL] 25 mg PO QAM Omeprazole 40 mg PO BID PRN PRN Reason: while on steroids traMADol HCL [Ultram] 50 mg PO BID PRN PRN Reason: Pain tiZANidine HCL [Zanaflex] 4 mg PO BID PRN PRN Reason: Muscle Spasm Ipratropium-Albuterol Nebulize [Duoneb 0.5 mg-3 mg/3 ml Soln] 3 ml INHALATION BID PRN PRN Reason: Shortness Of Breath Promethazine HCl [Promethazine HCl Oral Elixir] 12.5 mg PO Q6H PRN PRN Reason: Cough Sennosides [Senna] 8.6 mg PO BID PRN PRN Reason: Constipation Acetaminophen Tab [Tylenol] 1,000 mg PO Q6H PRN PRN Reason: Fever And/ Or Pain Fluticasone Nasal [place] [Flonase Nasal [place]] 2 spr EA NOSTRIL QAM Triamterene-Hctz 37.5-25Mg [Maxzide 37.5-25] 1 tab PO DAILY Albuterol Sulfate [Proair Hfa] 2 puff INHALATION QID Sodium Chloride 0.9% Nebuliz [Saline 0.9% For Nebulization] 1.5 ml INHALATION BID PRN PRN Reason: Cough Potassium Chloride ER [K-Dur 20] 20 meq PO DAILY Docusate [Colace] 100 mg PO BID Budesonide/Glycopyr/Formoterol [Breztri Aerosphere Inhaler] 2 puff INHALATION BID Digestive Enzymes 1 cap PO DAILY Calcium Carbonate [Tums] 1,000 mg PO TID PRN PRN Reason: Heartburn Benzocaine/Menthol Lozeng [Cepacol lozenge] 1 lozenge MUCOUS MEM Q4HR PRN PRN Reason: Sore Throat Cholecalciferol [Vitamin D3 (125 Mcg = 5000 Iu)] 125 mcg PO SA Benzonatate [Tessalon Perles] 200 mg PO TID PRN PRN Reason: Cough Atorvastatin [Lipitor] 20 mg PO HS Gabapentin [Neurontin] 100 mg PO TID Discharge Medication List Montelukast [Singulair] 10 mg PO DAILY 04/16/17 [History] Vitamin B Complex 1 cap PO DAILY 02/15/18 [History] L.acidoph,Paracasei, B.lactis [Probiotic] 1 cap PO DAILY 08/23/18 [History] Multivitamins, Thera [Multivitamin (formulary)] 1 tab PO DAILY 08/23/18 [History] Metoprolol Succinate (ER) [Toprol XL] 25 mg PO QAM 09/26/18 [History] calcium polycarbophiL [Fibercon] 625 mg PO DAILY 09/26/18 [History] Omeprazole 40 mg PO BID PRN 08/19/19 [History] traMADol HCL [Ultram] 50 mg PO BID PRN 03/04/20 [History] tiZANidine HCL [Zanaflex] 4 mg PO BID PRN 04/01/20 [History] Ipratropium-Albuterol Nebulize [Duoneb 0.5 mg-3 mg/3 ml Soln] 3 ml INHALATION BID PRN 05/10/20 [History] Promethazine HCl [Promethazine HCl Oral Elixir] 12.5 mg PO Q6H PRN 05/25/20 [History] Acetaminophen Tab [Tylenol] 1,000 mg PO Q6H PRN 03/06/21 [History] Albuterol Sulfate [Proair Hfa] 2 puff INHALATION QID 03/06/21 [History] Atorvastatin [Lipitor] 20 mg PO HS 03/06/21 [History] Benzocaine/Menthol Lozeng [Cepacol lozenge] 1 lozenge MUCOUS MEM Q4HR PRN 03/06/21 [History] Benzonatate [Tessalon Perles] 200 mg PO TID PRN 03/06/21 [History] Calcium Carbonate [Tums] 1,000 mg PO TID PRN 03/06/21 [History] Cholecalciferol [Vitamin D3 (125 Mcg = 5000 Iu)] 125 mcg PO SA 03/06/21 [History] Digestive Enzymes 1 cap PO DAILY 03/06/21 [History] Fluticasone Nasal [place] [Flonase Nasal [place]] 2 spr EA NOSTRIL QAM 03/06/21 [History] Sennosides [Senna] 8.6 mg PO BID PRN 03/06/21 [History] Sodium Chloride 0.9% Nebuliz [Saline 0.9% For Nebulization] 1.5 ml INHALATION BID PRN 03/06/21 [History] Triamterene-Hctz 37.5-25Mg [Maxzide 37.5-25] 1 tab PO DAILY 03/06/21 [History] Budesonide/Glycopyr/Formoterol [Breztri Aerosphere Inhaler] 2 puff INHALATION BID 01/24/22 [History] Docusate [Colace] 100 mg PO BID 01/24/22 [History] Gabapentin [Neurontin] 100 mg PO TID 01/24/22 [History] Potassium Chloride ER [K-Dur 20] 20 meq PO DAILY 01/24/22 [History]
[2022-01-25] MEDS ORDERED: ACETAMINOPHEN TAB 325 MG TAB ONE (11:36)
[2022-01-25] MEDS ORDERED: ACETAMINOPHEN TAB 325 MG TAB PO ONE (11:40)
[2022-01-25] MEDS ORDERED: MIDAZOLAM 2 MG/2 ML VIAL IVP ONE (12:00)
[2022-01-25] MEDS ORDERED: IPRATROPIUM-ALBUTEROL 3 ML NEB INHALATION STA (12:16)
[2022-01-25 12:33] VITALS: RESP 16
[2022-01-25 12:48] LABS: ALT 19 U/L (4-34); AST 27 U/L (14-36); African American GFR (CKD) >90 (>60 ml/min/1.73 sqM); Albumin 4.3 g/dL (3.5-5.0); Alkaline Phosphatase 103 U/L (38-126); Anion Gap 8 mmol/L; Blood Urea Nitrogen 9 mg/dL (7-17); Carbon Dioxide 34 mmol/L (22-30); Chloride 102 mmol/L (98-107); Glucose 78 mg/dL (74-99); Magnesium 2.3 mg/dL (1.6-2.3); Non-African American GFR(CKD) >90 (>60 ml/min/1.73 sqM); Phosphorus 3.9 mg/dL (2.5-4.5); Potassium 3.3 mmol/L (3.5-5.1); Sodium 144 mmol/L (137-145); Total Bilirubin 0.5 mg/dL (0.2-1.3); Total Protein 6.6 g/dL (6.3-8.2)
[2022-01-25 12:50] LABS: HGB 11.7 gm/dL (11.4-16.0); Hypochromasia Slight; MCH 27.5 pg (25.0-35.0); MCHC 33.4 g/dL (31.0-37.0); MCV 82.3 fL (80.0-100.0); Mean Platelet Volume 8.6; Platelet Count 200 k/uL (150-450); RBC 4.25 m/uL (3.80-5.40); WBC 6.5 k/uL (3.8-10.6)
[2022-01-25 12:56] VITALS: BP 113/74; PULSE 83
[2022-01-25 13:17] LABS: Partial Thromboplastin Time 27.5 sec (22.0-30.0); Prothrombin Time 10.3 sec (9.0-12.0)
[2022-01-25 19:48] LABS: % Iron Saturation 12.82 (12.00-45.00); Chol/HDL Ratio 2.65 Ratio; Ferritin 23.5 ng/mL (10.0-291.0); Iron 54 ug/dL (50-170); LDL Cholesterol,Calculated 69.1 mg/dL (0.0-131.0); Prealbumin 15.6 mg/dL (18.0-42.0); Total Iron Binding Capacity 417 ug/dL (228-460)
[2022-01-27 07:04] LABS: Vit B1(Thiamine) 64 ug/L (38-122)
[2022-01-27 14:11] LABS: Vitamin A 39 ug/dL (38-106)
[2022-01-30 23:22] LABS: Selenium 128 mcg/L (63-160)
[2022-01-31 11:10] LABS: Zinc, Serum 77 ug/dL (60-130)
[2022-02-01] MEDS ORDERED: MIDAZOLAM 2 MG/2 ML VIAL IVP ONE ×2 (12:00)
== END 2022-01-25 13:08 | disposition home or self-care (01) ==
LOC: ORWHC2ENDO 08:20
PROVIDERS: ATTEND Surgery Plastic and Reconstructive Surgery
DX: Z12.11 Encounter for screening for malignant neoplasm of colon (principal); K22.10 Ulcer of esophagus without bleeding; K21.9 Gastro-esophageal reflux disease without esophagitis; K29.30 Chronic superficial gastritis without bleeding; K22.89 Other specified disease of esophagus; B37.81 Candidal esophagitis; K64.1 Second degree hemorrhoids; J44.9 Chronic obstructive pulmonary disease, unspecified; E11.9 Type 2 diabetes mellitus without complications; E78.5 Hyperlipidemia, unspecified; I10 Essential (primary) hypertension; M79.9 Soft tissue disorder, unspecified; M19.90 Unspecified osteoarthritis, unspecified site; J18.9 Pneumonia, unspecified organism; G47.33 Obstructive sleep apnea (adult) (pediatric); E07.9 Disorder of thyroid, unspecified; M48.00 Spinal stenosis, site unspecified; E55.9 Vitamin D deficiency, unspecified; G90.A Postural orthostatic tachycardia syndrome [POTS]; D50.8 Other iron deficiency anemias; K91.0 Vomiting following gastrointestinal surgery; F41.8 Other specified anxiety disorders; G43.909 Migraine, unspecified, not intractable, without status migrainosus; Z90.49 Acquired absence of other specified parts of digestive tract; Z90.89 Acquired absence of other organs; Z98.84 Bariatric surgery status; Z98.891 History of uterine scar from previous surgery; Z98.890 Other specified postprocedural states; Z95.5 Presence of coronary angioplasty implant and graft; Z90.710 Acquired absence of both cervix and uterus; Z80.9 Family history of malignant neoplasm, unspecified; Z83.2 Family history of diseases of the blood and blood-forming organs and certain disorders involving the immune mechanism; Z79.899 Other long term (current) drug therapy; Z79.1 Long term (current) use of non-steroidal anti-inflammatories (NSAID); Z79.51 Long term (current) use of inhaled steroids; Z79.84 Long term (current) use of oral hypoglycemic drugs; Z88.6 Allergy status to analgesic agent; Z88.1 Allergy status to other antibiotic agents; Z91.013 Allergy to seafood
CPT/HCPCS: 45378; 94640; 84255; 84134; 88305; 84425; 80061; 80053; 82607; 82728; 82525; 82746; 83540; 83550; 83735; 84100; 84443; 84590; 84630; 85027; 85610; 85730; 88312; 88342; 82306; 83970; 83036; 43239; J2405; J2704; J2001

== ENCOUNTER → 2022-01-26 | Outpatient (CLI) | payer BC, MEDICARE ==
[2022-01-26 09:29] VITALS: BP 125/85; PULSE 77; RESP 16; TEMP 98.7
--- NOTE | 2022-01-26 14:22 | P.PAINPG ---
PQRS Measure Charge Sheet Comment: A 56 yr old female with a history of severe and chronic LBP secondary to lumbar DDD and spondylosis with facet arthropathy without myelopathy also has had L4-L5, L5-S1 decompression and fusion and underwent Caudal JORGE LUIS w lysis presents today for LBP evaluation. Her last Caudal JORGE LUIS w Lysis on Nov 2020 resulted in 80% x 10 mo s/p procedure. Pain level is currently at 8/10 in intensity, intermittent, localized in the L lower lumbar spine, achy/ sharp in character w shooting towards the BLEs. Pain is provoked by standing/walking/ laying supine for periods of 30 min or more. Pain is alleviated with PT x 12 wks in 2020, chiropractic treatments for yrs w last visit 2 wks ago, heat, ice, medications (Zanaflex, Ultram), topicals, repositioning and rest. Pt completed x ray of the cervical spine in 2020. She continues to have pain in the right lower cervical spine, 5 out of 10 in intensity, sharp and achy in character with radiation of pain to the base of the head. Patient states she completed physical therapy weekly for 12 weeks from February to June 2020, goes to the chiropractor as needed for her neck which she is currently in, uses ice, repositioning and rest for pain relief. Patient states sleeping in one position for too long provokes the pain. Interventional pain procedures completed include Caudal JORGE LUIS w lysis Patient is currently on Zanaflex, Ultram Patient denies any side effects of the medication(s), denies excessive drowsiness or sleepiness, denies suicidal ideation and reports that the current pain medication is helping to control the pain and improve activities of daily living. Patient denies any motor or sensory deficits. Patient denies any fever or night sweats, denies any change in the bowel movements or urination. Physical Examination: -Constitutional: Cooperative. Not in acute distress . - Neurologic: Cranial nerve II to XII intact. No focal neurological deficits. - Psychatric: Alert & oriented x 3. Matching mood & appropriate affect. Judgment and insight intact. - Musculoskeletal: Cervical spine: Muscle bulk/ tone/ strength in the bilateral upper extremities normal Vertebral body tenderness to palpation over Spurling test positive Distraction test positive Facet loading test positive Thoracic spine Muscle bulk / tone/ strength in the bilateral paraspinal muscles normal Vertebral body tender to palpation over Facet loading test positive Lumbar spine: Motor bulk/ tone/ strength lower extremities , thigh and legs : 5/5 Deep tendon reflexes : Normal Knee Jerk. Normal Ankle Jerk . Vertebral body tenderness to palpation over L5 Lumbar Facet Loading Test positive Straight Leg Raise: positive at 30 degrees right side/ left side Gaenslen's Test positive Sacral spine : Severe tenderness over the Sacroiliac joint: right side / left side Range of motion: Flexion of the lumbar spine <60 degrees Range of motion: Extension of the lumbar spine <20 degrees Gaenslen's Test positive Yarely test: positive right side / left side Thigh Thrust Test Sacral Thrust Test Assessment and plan: Chronic low back pain secondary to lumbar DDD, spondylosis with facet arthropathy without myelopathy Recommendation of Caudal JORGE LUIS w lysis. Pt exhibited sufficient and optimal pain relief w prior Caudal JORGE LUIS w lysis. Risks, benefits of procedure discussed and pt verbalized understanding. Denies anticoagulant use or medical history of diabetes. MRI without contrast of the cervical spine re : M50.30 All patient questions answered I have spent less than 30 minutes on patient care today. Dr Quarles was available by phone for the evaluation of this patient. The time was used to review the medical records including relevant urine studies and Prescription history (MAPs), review of the available imaging, evaluation and examination of the patient, coordination of care with the medical staff and if applicable referring physicians, as well as creation of the medical record - Pain Location Left Lower Back Non-Pharmacological Interventions: Chiropractic Treatment, Heat, Ice, Inactivity, Physical Therapy, Position/Reposition Pharmacological Interventions: Epidural, PRN Medication, Topical Medication Right Lower Neck Non-Pharmacological Interventions: Ice, Inactivity, Position/Reposition Pharmacological Interventions: PRN Medication, Topical Medication PQRS Narrative: Smoking Status Never smoker Hx Alcohol Use (MH) Yes Home Medications: Ambulatory Orders Montelukast [Singulair] 10 mg PO DAILY 04/16/17 Vitamin B Complex 1 cap PO DAILY 02/15/18 L.acidoph,Paracasei, B.lactis [Probiotic] 1 cap PO DAILY 08/23/18 Multivitamins, Thera [Multivitamin (formulary)] 1 tab PO DAILY 08/23/18 Metoprolol Succinate (ER) [Toprol XL] 25 mg PO QAM 09/26/18 calcium polycarbophiL [Fibercon] 625 mg PO DAILY 09/26/18 Omeprazole 40 mg PO BID PRN 08/19/19 traMADol HCL [Ultram] 50 mg PO BID PRN 03/04/20 tiZANidine HCL [Zanaflex] 4 mg PO BID PRN 04/01/20 Ipratropium-Albuterol Nebulize [Duoneb 0.5 mg-3 mg/3 ml Soln] 3 ml INHALATION BID PRN 05/10/20 Promethazine HCl [Promethazine HCl Oral Elixir] 12.5 mg PO Q6H PRN 05/25/20 Acetaminophen Tab [Tylenol] 1,000 mg PO Q6H PRN 03/06/21 Albuterol Sulfate [Proair Hfa] 2 puff INHALATION QID 03/06/21 Atorvastatin [Lipitor] 20 mg PO HS 03/06/21 Benzocaine/Menthol Lozeng [Cepacol lozenge] 1 lozenge MUCOUS MEM Q4HR PRN 03/06/21 Benzonatate [Tessalon Perles] 200 mg PO TID PRN 03/06/21 Calcium Carbonate [Tums] 1,000 mg PO TID PRN 03/06/21 Cholecalciferol [Vitamin D3 (125 Mcg = 5000 Iu)] 125 mcg PO SA 03/06/21 Digestive Enzymes 1 cap PO DAILY 03/06/21 Fluticasone Nasal [place] [Flonase Nasal [place]] 2 spr EA NOSTRIL QAM 03/06/21 Sennosides [Senna] 8.6 mg PO BID PRN 03/06/21 Sodium Chloride 0.9% Nebuliz [Saline 0.9% For Nebulization] 1.5 ml INHALATION BID PRN 03/06/21 Triamterene-Hctz 37.5-25Mg [Maxzide 37.5-25] 1 tab PO DAILY 03/06/21 Budesonide/Glycopyr/Formoterol [Breztri Aerosphere Inhaler] 2 puff INHALATION BID 01/24/22 Docusate [Colace] 100 mg PO BID 01/24/22 Gabapentin [Neurontin] 100 mg PO TID 01/24/22 Potassium Chloride ER [K-Dur 20] 20 meq PO DAILY 01/24/22 Controlled Substance Measures - Controlled Substance Measures Is patient prescribed a controlled substance at discharge?: No
== END ==
LOC: PNWHC3 08:44
PROVIDERS: ATTEND Specialist
DX: M47.816 Spondylosis without myelopathy or radiculopathy, lumbar region (principal); M51.36 Other intervertebral disc degeneration, lumbar region; G89.29 Other chronic pain; Z88.1 Allergy status to other antibiotic agents; Z88.6 Allergy status to analgesic agent; Z91.013 Allergy to seafood; Z91.09 Other allergy status, other than to drugs and biological substances; Z91.018 Allergy to other foods
CPT/HCPCS: 99211

== ENCOUNTER → 2022-02-18 | Outpatient (CLI) | payer BC, MEDICARE ==
--- NOTE | 2022-02-18 21:44 | MR ---
EXAMINATION TYPE: MR cervical spine wo con DATE OF EXAM: 02/18/2022 INDICATION: Patient age:Female; 56 years old; Reason for study: M50.30 OTHER CERVICAL DISC DEGENERATION. Right sided neck pain, headaches, LUE radi culopathy. COMPARISON: Thyroid ultrasound 12/29/2019. TECHNIQUE: Multi planar, multi sequence imaging was performed utilizing: T1-weighted, T2-weighted, an d turbo inversion recovery imaging of the cervical spine. IV Contrast: None FINDINGS: Alignment: The cervical vertebral bodies have preserved heights. Alignment is within normal limits gi andrew patient positioning. Bones: Multilevel degenerative disc disease is noted and most pronounced at the C5-C7 vertebral level s with osteophyte formation. Cord: The spinal cord is unremarkable with regards to their signal intensity and morphology. Discs: Intervertebral disc signal is maintained. C2-C3: No significant disc pathology. The spinal canal is patent. No neural foraminal stenosis. C3-C4: No significant disc pathology. The spinal canal is patent. No neural foraminal stenosis. C4-C5: A disc osteophyte complex is present with mild spinal canal stenosis. No neural foraminal dimitri nosis. C5-C6: A disc osteophyte complex is present with mild spinal canal stenosis. Bilateral facet and unc overtebral joint arthropathy are present with mild bilateral neural foraminal stenosis. C6-C7: No significant disc pathology. The spinal canal is patent. No neural foraminal stenosis. C7-T1: A disc osteophyte complex is present with mild spinal canal stenosis. Bilateral facet and unc overtebral joint arthropathy are present with mild bilateral neural foraminal stenosis. Other: Right thyroid lobe nodular changes posteriorly. IMPRESSION: 1. No evidence for disc herniation or significant spinal canal stenosis. 2. Mild disc degeneration with associated osteoarthritic changes. 3. Right thyroid lobe nodular changes similar prior thyroid ultrasound 12/29/2019.
== END | disposition home or self-care (01) ==
LOC: RADMRIMAIN 12:22
PROVIDERS: ATTEND Physician Assistant Medical
DX: M50.121 Cervical disc disorder at C4-C5 level with radiculopathy (principal); E04.1 Nontoxic single thyroid nodule; M47.22 Other spondylosis with radiculopathy, cervical region
CPT/HCPCS: 72141

== ENCOUNTER 2022-02-28 09:01 | Day surgery (SDC) | payer BC, MEDICARE ==
[2022-02-23 15:22] VITALS: BMI 40.8
[2022-02-28 09:32] VITALS: TEMP 97
[2022-02-28] MEDS ORDERED: LACTATED RINGERS 1,000 ML IV ONE ×2 (09:45→10:15)
[2022-02-28] MEDS ORDERED: ONDANSETRON 4 MG/2 ML VIAL ONE (09:54)
[2022-02-28] MEDS ORDERED: methylPREDNISolone ACETATE 80 MG/ML 1 ML VIAL ONE (09:54)
[2022-02-28] MEDS ORDERED: ROPIVACAINE 5 MG/ML 20 ML AMPULE ONE (09:54)
[2022-02-28] MEDS ORDERED: MIDAZOLAM 2 MG/2 ML VIAL ONE (09:54)
[2022-02-28] MEDS ORDERED: IOPAMIDOL M200 10 ML VIAL ONE (09:54)
[2022-02-28] MEDS ORDERED: fentaNYL (PF) 50 MCG/ML 2 ML AMP ONE (09:54)
--- NOTE | 2022-02-28 10:12 | P.PCN ---
Date of Procedure: 02/28/22 Procedure(s) Performed: PREOP DIAGNOSIS: 1- Lumbar postlaminectomy syndrome. POSTOP DIAGNOSIS:1- Lumbar postlaminectomy syndrome. PROCEDURE: 1-Caudal epidural steroid injection with epidurolysis and epidurogram under fluoroscopic guidance. (Fluoroscopy images available in the radiology Department ) 2-caudal epidurogram. ANESTHESIA: moderate sedation, with Versed 3 mg and fentanyl 100 g. Sedation start time : 0 957 . Sedation stop time : 1009 EBL: Minimal. PROCEDURE INDICATION: The patient with post-laminectomy syndrome with low back pain and radiculopathy radiating down in both legs, here for a caudal epidural steroid injection with epidurolysis. PROCEDURE DESCRIPTION: The patient was seen and identified in the preoperative area. Risks, benefits, complications, and alternatives were discussed with the patient. The patient agreed to proceed with the procedure and signed the consent. IV was started, and vital signs were stable. Patient was taken to the OR and time out was completed. The patient was placed in the prone position on procedure table and a pillow was placed under the abdomen to reduce lumbar lordosis. The lumbosacral area was prepped and draped in the usual sterile fashion. Vital signs were closely monitored during the procedure. lateral view and the anterior-posterior plates of the sacrum were identified with infiltration of the area overlying the sacral hiatus with 1% lidocaine .A 17 gauge RK epidural needle was used to advance through the sacral hiatus into the caudal epidural space. Omnipaque 180 dye. 2cc was injected and the position of the needle was verified to be in the midline. A Racz catheter was introduced into the epidural space and was advanced towards the L5-S1 interspace under direct fluoroscopic guidance. Multiple passes were made with the catheter for lysis of epidural adhesions. Depo-Medrol 80 mg ( preservative-free ) with 3ml of preservative free Lidocaine 1% and 5 ml of preservative free normal saline was injected slowly. Additional spread was seen to L4 under fluoroscopy. The needle and the catheter were withdrawn intact. EPIDUROGRAM: Omnipaque 180 mg dye 2 ml was injected with spread of the dye into the caudal epidural space and with spread cutoff at L5 prior to epidurolysis. Post epidurolysis dye 2 ml was injected and spread was seen to L3-4.There was further spread of the solution together with the dye above the L3 COMPLICATIONS: None. DISPOSITION / PLANS: The patient was placed in a supine position and transferred to the recovery area in a stable condition for observation and was discharged from the recovery room after meeting discharge criteria. Home discharge instructions given to the patient by the staff. The patient was reexamined prior to discharge. The patient will schedule a follow up in the clinic in 2-4 weeks.
[2022-02-28 10:40] VITALS: BP 103/72; PULSE 73; RESP 15
[2022-02-28] MEDS ORDERED: LACTATED RINGERS 1,000 ML IV SCH (10:55)
[2022-02-28] MEDS ORDERED: LIDOCAINE 1% (10MG/ML) FOR IV START INTRADERMA PRN (10:55)
--- NOTE | 2022-02-28 13:28 | FL ---
Intraoperative/procedural fluoroscopic services were provided. Total fluoroscopy time is 6 seconds wi th a total of 3 submitted images to PACS. Please see the operative/procedural note for further detail s.
== END 2022-02-28 11:00 | disposition home or self-care (01) ==
LOC: ORPAIN 09:01
PROVIDERS: ATTEND Specialist
DX: M96.1 Postlaminectomy syndrome, not elsewhere classified (principal); Z88.1 Allergy status to other antibiotic agents
CPT/HCPCS: 62264; 99152; J2250; J1040; J2405; J3010; Q9966; J2795; C1894

== ENCOUNTER → 2022-03-03 | Outpatient (CLI) | payer BC, MEDICARE ==
--- NOTE | 2022-03-04 05:54 | US ---
EXAMINATION TYPE: US thyroid st tissue head/neck DATE OF EXAM: 03/03/2022 COMPARISON: Prior thyroid ultrasound December 29, 2019 CLINICAL HISTORY: E04.2 NONTOXIC MULTINODULAR GOITER. Follow up nodules. Not on thyroid meds. GLAND SIZE: Right Lobe: 5.1 x 1.5 x 2.2 cm Overall Parenchyma: heterogenous Left Lobe: 4.6 x 1.6 x 1.3 cm Overall Parenchyma: heterogeneous Isthmus Thickness: 0.3 cm NODULES RIGHT: # of nodules measured on right: 3 1. 1.7 X 1.5 x 1.9 cm, lower mid, solid or almost completely solid, isoechoic nodule, which is tall er than wide, with ill-defined margins, without echogenic foci. Prior size: 1.8 x 1.1 x 1.6 cm 2. 0.7 X 0.7 x 0.5 cm, mid medial, solid or almost completely solid, hypoechoic nodule, which is wi leo than tall, with ill-defined margins, without echogenic foci. Prior size: 0.7 x 0.5 x 0.5 cm 3. 0.6 X 0.5 x 0.4 cm, upper lateral, cystic or almost completely cystic, anechoic nodule, which is wider than tall, with smooth margins, without echogenic foci. Prior size: 0.5 x 0.4 x 0.3 cm LEFT: # of nodules measured on left: 2 1. 1.0 X 0.7 x 0.5 cm, lower lateral, solid or almost completely solid, hypoechoic nodule, which is wider than tall, with ill-defined margins, without echogenic foci. Prior size: 0.9 x 0.7 x 0.5 cm 2. 0.8 X 0.5 x 0.4 cm, mid medial, solid or almost completely solid, isoechoic nodule, which is wi leo than tall, with ill-defined margins, without echogenic foci. Prior size: 0.9 x 0.8 x 0.4 cm ISTHMUS: # of nodules measured in the isthmus: 0 Bilateral neck scanned, no evidence of lymphadenopathy. Persistent heterogeneous normal-sized thyroid with bilateral nodules. IMPRESSION: As above. Findings consistent with multinodular goiter redemonstrated. No significant tereso nge from most recent prior study.
== END | disposition home or self-care (01) ==
LOC: RADUSWWP 16:10
PROVIDERS: ATTEND Family Medicine
DX: E04.2 Nontoxic multinodular goiter (principal)
CPT/HCPCS: 76536

== ENCOUNTER → 2022-03-06 | Outpatient (CLI) | payer BC, MEDICARE | END | disposition home or self-care (01) | LOC: LABWHC1 14:48 | PROVIDERS: ATTEND Internal Medicine Interventional Cardiology | DX: Z53.9 Procedure and treatment not carried out, unspecified reason (principal) ==

== ENCOUNTER → 2022-03-08 | Outpatient (CLI) | payer BC, MEDICARE ==
[2022-03-07 00:01] LABS: African American GFR (CKD) 65.9 (60.0-200.0); Anion Gap 12.1 mmol/L (10.00-18.00); BUN/Creat Ratio 19.55 Ratio (12.00-20.00); Blood Urea Nitrogen 21.5 mg/dL (9.0-27.0); Calcium 10.4 mg/dL (8.7-10.3); Carbon Dioxide 30.9 mmol/L (20.0-27.5); Non-African American GFR(CKD) 56.9 (60.0-200.0); Potassium 5.2 mmol/L (3.5-5.5)
[2022-03-08 09:10] VITALS: BP 109/71; PULSE 75; RESP 16; TEMP 97.8
--- NOTE | 2022-03-08 14:32 | P.PAINPG ---
Objective - Labs CBC & Chem 7: 03/06/22 15:15 PQRS Measure Charge Sheet Comment: A 56 yr old female with a history of severe and chronic neck & low back pain secondary to lumbar stenosis, DDD and spondylosis with facet arthropathy without myelopathy presents today for MRI results of the cervical spine. Pain level is currently at 5 /10 in intensity, constant, localized in the cervical spine, dull/ achy in character w shooting towards the BL shoulders. Pain is provoked by hyperextension, rotation, lateral flexion. Pain is alleviated with PT x 6 wks in April 2021, home exercise daily, chiropractic treatments semi monthly, heat, ice, meds (Zanaflex), topicals, repositioning and rest. Interventional pain procedures completed include Caudal JORGE LUIS w lysis Patient is currently on Zanaflex Patient denies any side effects of the medication(s), denies excessive drowsiness or sleepiness, denies suicidal ideation and reports that the current pain medication is helping to control the pain and improve activities of daily living. Patient denies any motor or sensory deficits. Patient denies any fever or night sweats, denies any change in the bowel movements or urination. Physical Examination: -Constitutional: Cooperative. Not in acute distress . - Neurologic: Cranial nerve II to XII intact. No focal neurological deficits. - Psychatric: Alert & oriented x 3. Matching mood & appropriate affect. Judgment and insight intact. - Musculoskeletal: Cervical spine: Muscle bulk/ tone/ strength in the bilateral upper extremities normal Vertebral body tenderness to palpation over C7 Spurling test positive Distraction test positive Facet loading test positive Thoracic spine Muscle bulk / tone/ strength in the bilateral paraspinal muscles normal Vertebral body tender to palpation over Facet loading test positive Lumbar spine: Motor bulk/ tone/ strength lower extremities , thigh and legs : 5/5 Deep tendon reflexes : Normal Knee Jerk. Normal Ankle Jerk . Vertebral body tenderness to palpation over Lumbar Facet Loading Test positive Straight Leg Raise: positive at 30 degrees right side/ left side Gaenslen's Test positive Sacral spine : Severe tenderness over the Sacroiliac joint: right side / left side Range of motion: Flexion of the lumbar spine <60 degrees Range of motion: Extension of the lumbar spine <20 degrees Gaenslen's Test positive Yarely test: positive right side / left side Thigh Thrust Test Sacral Thrust Test Imaging: MRI without contrast of the cervical spine from 02/18/22 reviewed Assessment and plan: Chronic neck pain secondary to cervical DDD, spondylosis with facet arthropathy without myelopathy Recommendation of JORGE LUIS C7-T1. May need a series of injections, up to 3 within a 6 mo period, for optimal pain relief. Risks, benefits of procedure discussed and pt verbalized understanding. Denies anticoagulant use or medical history of diabetes. All patient questions answered I have spent less than 30 minutes on patient care today. Dr Quarles was available by phone for the evaluation of this patient. The time was used to review the medical records including relevant urine studies and Prescription history (MAPs), review of the available imaging, evaluation and examination of the patient, coordination of care with the medical staff and if applicable referring physicians, as well as creation of the medical record - Pain Location Neck Non-Pharmacological Interventions: Chiropractic Treatment, Heat, Home Exercise, Ice, Inactivity, Physical Therapy, Position/Reposition, Stretching Pharmacological Interventions: PRN Medication, Topical Medication PQRS Narrative: Smoking Status Never smoker Hx Alcohol Use (MH) Yes Home Medications: Ambulatory Orders Montelukast [Singulair] 10 mg PO DAILY 04/16/17 Vitamin B Complex 1 cap PO DAILY 02/15/18 L.acidoph,Paracasei, B.lactis [Probiotic] 1 cap PO DAILY 08/23/18 Multivitamins, Thera [Multivitamin (formulary)] 1 tab PO DAILY 08/23/18 Metoprolol Succinate (ER) [Toprol XL] 25 mg PO QAM 09/26/18 calcium polycarbophiL [Fibercon] 625 mg PO DAILY 09/26/18 Omeprazole 40 mg PO BID PRN 08/19/19 traMADol HCL [Ultram] 50 mg PO BID PRN 03/04/20 tiZANidine HCL [Zanaflex] 4 mg PO BID PRN 04/01/20 Ipratropium-Albuterol Nebulize [Duoneb 0.5 mg-3 mg/3 ml Soln] 3 ml INHALATION BID PRN 05/10/20 Promethazine HCl [Promethazine HCl Oral Elixir] 12.5 mg PO Q6H PRN 05/25/20 Acetaminophen Tab [Tylenol] 1,000 mg PO Q6H PRN 03/06/21 Albuterol Sulfate [Proair Hfa] 2 puff INHALATION QID 03/06/21 Atorvastatin [Lipitor] 20 mg PO HS 03/06/21 Benzocaine/Menthol Lozeng [Cepacol lozenge] 1 lozenge MUCOUS MEM Q4HR PRN 03/06/21 Benzonatate [Tessalon Perles] 200 mg PO TID PRN 03/06/21 Calcium Carbonate [Tums] 1,000 mg PO TID PRN 03/06/21 Cholecalciferol [Vitamin D3 (125 Mcg = 5000 Iu)] 125 mcg PO SA 03/06/21 Digestive Enzymes 1 cap PO DAILY 03/06/21 Fluticasone Nasal [place] [Flonase Nasal [place]] 2 spr EA NOSTRIL QAM 03/06/21 Sennosides [Senna] 8.6 mg PO BID PRN 03/06/21 Sodium Chloride 0.9% Nebuliz [Saline 0.9% For Nebulization] 1.5 ml INHALATION BID PRN 03/06/21 Triamterene-Hctz 37.5-25Mg [Maxzide 37.5-25] 1 tab PO DAILY 03/06/21 Budesonide/Glycopyr/Formoterol [Breztri Aerosphere Inhaler] 2 puff INHALATION BID 01/24/22 Docusate [Colace] 100 mg PO BID PRN 01/24/22 Gabapentin [Neurontin] 100 mg PO TID 01/24/22 Potassium Chloride ER [K-Dur 20] 20 meq PO DAILY 01/24/22 Fluconazole [Diflucan] 100 mg PO DAILY #21 tablet 02/15/22 Furosemide [Lasix] 20 mg PO DAILY PRN 02/15/22 Controlled Substance Measures - Controlled Substance Measures Is patient prescribed a controlled substance at discharge?: No
== END ==
LOC: PNWHC3 08:50
PROVIDERS: ATTEND Specialist
DX: M47.812 Spondylosis without myelopathy or radiculopathy, cervical region (principal); G89.29 Other chronic pain; M50.30 Other cervical disc degeneration, unspecified cervical region; Z91.018 Allergy to other foods; Z88.6 Allergy status to analgesic agent; Z88.1 Allergy status to other antibiotic agents; Z91.013 Allergy to seafood
CPT/HCPCS: 80048; 99211

== ENCOUNTER → 2022-03-30 | Outpatient (CLI) | payer BC, MEDICARE ==
--- NOTE | 2022-03-30 11:07 | FL ---
EXAMINATION TYPE: FL sniff test without CXR DATE OF EXAM: 03/30/2022 COMPARISON: Chest x-ray March 06, 2021 and older studies back through April 16, 2017 HISTORY: Asthma. Shortness of breath with minimal exertion. TECHNIQUE: Fluoroscopy assisted sniff test. FINDINGS: Fluoroscopic guidance was provided during sniff test procedure performed by myself. A tot al of 27 seconds of fluoroscopic time was utilized during the procedure and 22 spot images are acquir ed. During deep inspiration and expiration, there is symmetric satisfactory motion of both hemidiaphragms observed during real-time and on images saved. IMPRESSION: No fluoroscopic evidence for hemidiaphragm paralysis.
== END | disposition home or self-care (01) ==
LOC: RADFLMAIN 10:25
PROVIDERS: ATTEND Internal Medicine Critical Care Medicine
DX: J45.40 Moderate persistent asthma, uncomplicated (principal)
CPT/HCPCS: 76000

== ENCOUNTER → 2022-06-01 | Outpatient (CLI) | payer BC, MEDICARE ==
[2022-06-01 11:07] VITALS: BP 139/93; PULSE 84; RESP 20; TEMP 97.9
--- NOTE | 2022-06-01 12:03 | P.PN ---
Subjective Progress Note Date: 06/01/22 this is follow up visit for this 56 yr old female with a history of severe and chronic low back pain , she is diagnosed with postlaminectomy pain syndrome lumbar area, patient here for evaluation after the psych evaluation done recently regarding the spinal cord stimulator , patient also had neck pain secondary to cervical DDD and spondylosis with facet arthropathy without myelopathy , Pain level is provoked at 6 /10 in intensity, constant, localized in the lower thoracic and throughout the lumbar spine, sore in character w shooting towards the flanks & BLEs. Pt admits to having a thoracotomy which has ensued mid back & flank pain. Pain is provoked by lifting, bending. Pain is alleviated with chiropractic treatments monthly, PT weekly x 6 wks from Feb - Apr 2020, heat, home exercise regimen as tolerated, repositioning, reclining and rest. Interventional pain procedures completed include JORGE LUIS C6-C7 x1, Caudal JORGE LUIS w Lysis Patient is currently on Ultram, Zanaflex Patient denies any side effects of the medication(s), denies excessive drowsiness or sleepiness, denies suicidal ideation and reports that the current pain medication is helping to control the pain and improve activities of daily living. Patient denies any motor or sensory deficits. Patient denies any fever or night sweats, denies any change in the bowel movements or urination. Physical Examination: -Constitutional: Cooperative. Not in acute distress . - Neurologic: Cranial nerve II to XII intact. No focal neurological de ficits. - Psychatric: Alert & oriented x 3. Matching mood & appropriate affect. Judgment and insight intact. - Musculoskeletal: Cervical spine: Muscle bulk/ tone/ strength in the bilateral upper extremities normal Vertebral body tenderness to palpation over Spurling test positive Distraction test positive Facet loading test positive TTP Thoracic spine Muscle bulk / tone/ strength in the bilateral paraspinal muscles normal Vertebral body tender to palpation over Thoracic paraspinal TTP over BL T6-T12 Facet loading test positive TTP Lumbar spine: Motor bulk/ tone/ strength lower extremities , thigh and legs : 5/5 Deep tendon reflexes : Normal Knee Jerk. Normal Ankle Jerk . Vertebral body tenderness to palpation over L4, L5 Lumbar Facet Loading Test positive Straight Leg Raise: positive at 30 degrees right side/ left side Gaenslen's Test positive Sacral spine : Severe tenderness over the Sacroiliac joint: right side / left side Range of motion: Flexion of the lumbar spine <60 degrees Range of motion: Extension of the lumbar spine <20 degrees Gaenslen's Test positive R / L Yarely test: positive right side / left side Thigh Thrust Test positive R / L Sacral Thrust Test positive R/ L Assessment and plan: Chronic mid to lower back pain secondary to postlaminectomy pain syndrome, lumbar DDD, spondylosis with facet arthropathy without myelopathy Recommendation of placement of SCS trial. She already had psych evaluation done, she already watched the video on the spinal cord stimulator - Pain Location Bilateral Lower Back Non-Pharmacological Interventions: Chiropractic Treatment, Heat, Ice, Inactivity, Position/Reposition, Sitting Pharmacological Interventions: PRN Medication, Topical Medication PQRS Narrative: Smoking Status Never smoker Hx Alcohol Use (MH) Yes Home Medications: Ambulatory Orders Montelukast [Singulair] 10 mg PO DAILY 04/16/17 Vitamin B Complex 1 cap PO DAILY 02/15/18 L.acidoph,Paracasei, B.lactis [Probiotic] 1 cap PO DAILY 08/23/18 Multivitamins, Thera [Multivitamin (formulary)] 1 tab PO DAILY 08/23/18 Metoprolol Succinate (ER) [Toprol XL] 50 mg PO QAM 09/26/18 calcium polycarbophiL [Fibercon] 625 mg PO DAILY 09/26/18 Omeprazole 40 mg PO BID PRN 08/19/19 traMADol HCL [Ultram] 50 mg PO BID PRN 03/04/20 tiZANidine HCL [Zanaflex] 4 mg PO BID PRN 04/01/20 Ipratropium-Albuterol Nebulize [Duoneb 0.5 mg-3 mg/3 ml Soln] 3 ml INHALATION BID PRN 05/10/20 Promethazine HCl [Promethazine HCl Oral Elixir] 12.5 mg PO Q6H PRN 05/25/20 Acetaminophen Tab [Tylenol] 1,000 mg PO Q6H PRN 03/06/21 Albuterol Sulfate [Proair Hfa] 2 puff INHALATION QID 03/06/21 Atorvastatin [Lipitor] 20 mg PO HS 03/06/21 Benzocaine/Menthol Lozeng [Cepacol lozenge] 1 lozenge MUCOUS MEM Q4HR PRN 03/06/21 Benzonatate [Tessalon Perles] 200 mg PO TID PRN 03/06/21 Calcium Carbonate [Tums] 1,000 mg PO TID PRN 03/06/21 Cholecalciferol [Vitamin D3 (125 Mcg = 5000 Iu)] 125 mcg PO SA 03/06/21 Digestive Enzymes 1 cap PO DAILY 03/06/21 Fluticasone Nasal [place] [Flonase Nasal [place]] 2 spr EA NOSTRIL QAM 03/06/21 Sennosides [Senna] 8.6 mg PO BID PRN 03/06/21 Sodium Chloride 0.9% Nebuliz [Saline 0.9% For Nebulization] 1.5 ml INHALATION BID PRN 03/06/21 Triamterene-Hctz 37.5-25Mg [Maxzide 37.5-25] 1 tab PO DAILY 03/06/21 Budesonide/Glycopyr/Formoterol [Breztri Aerosphere Inhaler] 2 puff INHALATION BID 01/24/22 Docusate [Colace] 100 mg PO BID PRN 01/24/22 Gabapentin [Neurontin] 100 mg PO TID 01/24/22 Potassium Chloride ER [K-Dur 20] 20 meq PO DAILY 01/24/22 Furosemide [Lasix] 20 mg PO DAILY PRN 02/15/22 Calcium Carb/Vitamin D3/Vit K1 [Viactiv 650 mg-12.5 Mcg Chew] 1 tab PO DAILY 04/04/22 Controlled Substance Measures - Controlled Substance Measures Is patient prescribed a controlled substance at discharge?: No Objective - Vital Signs Vital signs: Vital Signs Temp 97.9 F 06/01/22 10:59 Pulse 84 06/01/22 10:59 Resp 20 06/01/22 10:59 BP 139/93 06/01/22 10:59 Pulse Ox FiO2 Intake & Output 05/31/22 06/01/22 06/01/22 18:59 06:59 18:59 Weight 96.162 kg
== END ==
LOC: PNWHC3 10:29
PROVIDERS: ATTEND Specialist
DX: M51.36 Other intervertebral disc degeneration, lumbar region (principal); M47.816 Spondylosis without myelopathy or radiculopathy, lumbar region; G89.29 Other chronic pain; Z91.048 Other nonmedicinal substance allergy status; Z88.1 Allergy status to other antibiotic agents; Z88.6 Allergy status to analgesic agent; Z91.013 Allergy to seafood; M96.1 Postlaminectomy syndrome, not elsewhere classified
CPT/HCPCS: 99211

== ENCOUNTER 2022-07-19 12:51 | Observation (INO) | payer BC, MEDICARE ==
--- NOTE | 2022-07-19 13:47 | XR ---
EXAMINATION TYPE: XR chest 2V DATE OF EXAM: 07/19/2022 1:38 PM COMPARISON: Chest radiographs from 03/06/2021 TECHNIQUE: XR chest 2V Frontal and lateral views of the chest. CLINICAL INDICATION:Female, 57 years old with history of Chest Pain; FINDINGS: Lungs/Pleura: There is no evidence of pleural effusion, focal consolidation, or pneumothorax. Pulmonary vascularity: Unremarkable. Heart/mediastinum: Cardiomediastinal silhouette is unremarkable. Musculoskeletal: No acute osseous pathology. IMPRESSION: No acute cardiopulmonary disease/process.
[2022-07-19] MEDS ORDERED: ASPIRIN 81 MG PO STA (14:00)
[2022-07-19] MEDS ORDERED: NITROGLYCERIN OINT 1 INCH/GM PACKET TOPICAL STA (14:00)
[2022-07-19] MEDS ORDERED: LORazepam 2 MG/ML INJ IV STA (14:00)
--- NOTE | 2022-07-19 14:03 | ED ---
General Adult HPI - General Chief complaint: Chest Pain Stated complaint: chest pain, back pain Time Seen by Provider: 07/19/22 13:45 Source: patient, RN notes reviewed, old records reviewed Mode of arrival: ambulatory Limitations: no limitations - History of Present Illness Initial comments: This is a 57-year-old female presents emergency department stating that 2 hours prior to arrival she was having chest discomfort that radiated to her left arm. Patient states she was also short of breath. Patient states she has a history of tracheobronchial malacia. Patient had surgery to repair that. Patient states today she also became diaphoretic with chest pain and currently she still feels a little short of breath. Patient denies any recent fever chills or cough. Patient denies any abdominal pain patient denies nausea vomiting diarrhea. Patient states she does have high blood pressure high cholesterol and is prediabetic. Patient denies any smoking. Patient denies any swelling to the legs or calf tenderness. - Related Data Home Medications Medication Instructions Recorded Confirmed Montelukast [Singulair] 10 mg PO DAILY 04/16/17 06/01/22 Vitamin B Complex 1 cap PO DAILY 02/15/18 06/01/22 L.acidoph,Paracasei, B.lactis 1 cap PO DAILY 08/23/18 06/01/22 [Probiotic] Multivitamins, Thera [Multivitamin 1 tab PO DAILY 08/23/18 06/01/22 (formulary)] Metoprolol Succinate (ER) [Toprol 50 mg PO QAM 09/26/18 06/01/22 XL] calcium polycarbophiL [Fibercon] 625 mg PO DAILY 09/26/18 06/01/22 Omeprazole 40 mg PO BID PRN 08/19/19 06/01/22 traMADol HCL [Ultram] 50 mg PO BID PRN 03/04/20 06/01/22 tiZANidine HCL [Zanaflex] 4 mg PO BID PRN 04/01/20 06/01/22 Ipratropium-Albuterol Nebulize 3 ml INHALATION BID PRN 05/10/20 06/01/22 [Duoneb 0.5 mg-3 mg/3 ml Soln] Promethazine HCl [Promethazine HCl 12.5 mg PO Q6H PRN 05/25/20 06/01/22 Oral Elixir] Acetaminophen Tab [Tylenol] 1,000 mg PO Q6H PRN 03/06/21 06/01/22 Albuterol Sulfate [Proair Hfa] 2 puff INHALATION QID 03/06/21 06/01/22 Atorvastatin [Lipitor] 20 mg PO HS 03/06/21 06/01/22 Benzocaine/Menthol Lozeng [Cepacol 1 lozenge MUCOUS MEM Q4HR PRN 03/06/21 06/01/22 lozenge] Benzonatate [Tessalon Perles] 200 mg PO TID PRN 03/06/21 06/01/22 Calcium Carbonate [Tums] 1,000 mg PO TID PRN 03/06/21 06/01/22 Cholecalciferol [Vitamin D3 (125 125 mcg PO SA 03/06/21 06/01/22 Mcg = 5000 Iu)] Digestive Enzymes 1 cap PO DAILY 03/06/21 06/01/22 Fluticasone Nasal [place] [Flonase 2 spr EA NOSTRIL QAM 03/06/21 06/01/22 Nasal [place]] Sennosides [Senna] 8.6 mg PO BID PRN 03/06/21 06/01/22 Sodium Chloride 0.9% Nebuliz 1.5 ml INHALATION BID PRN 03/06/21 06/01/22 [Saline 0.9% For Nebulization] Triamterene-Hctz 37.5-25Mg 1 tab PO DAILY 03/06/21 06/01/22 [Maxzide 37.5-25] Budesonide/Glycopyr/Formoterol 2 puff INHALATION BID 01/24/22 06/01/22 [Breztri Aerosphere Inhaler] Docusate [Colace] 100 mg PO BID PRN 01/24/22 06/01/22 Gabapentin [Neurontin] 100 mg PO TID 01/24/22 06/01/22 Potassium Chloride ER [K-Dur 20] 20 meq PO DAILY 01/24/22 06/01/22 Furosemide [Lasix] 20 mg PO DAILY PRN 02/15/22 06/01/22 Calcium Carb/Vitamin D3/Vit K1 1 tab PO DAILY 04/04/22 06/01/22 [Viactiv 650 mg-12.5 Mcg Chew] Allergies Allergy/AdvReac Type Severity Reaction Status Date / Time cat dander Allergy eye Verified 07/19/22 12:58 swelling ciprofloxacin [From Cipro] Allergy Itching Verified 07/19/22 12:58 gluten Allergy Abdominal Verified 07/19/22 12:58 Pain/HEADACHES, constipation NSAIDS (Non-Steroidal AdvReac Abdominal Verified 07/19/22 12:58 Anti-Inflamma Pain shellfish derived [Shellfish] AdvReac Vomiting Verified 07/19/22 12:58 Review of Systems ROS Statement: Those systems with pertinent positive or pertinent negative responses have been documented in the HPI. ROS Other: All systems not noted in ROS Statement are negative. Past Medical History Past Medical History: Asthma, Chest Pain / Angina, COPD, Diabetes Mellitus, GERD/Reflux, Hyperlipidemia, Hypertension, Musculoskeletal Disorder, Os teoarthritis (OA), Pneumonia, Sleep Apnea/CPAP/BIPAP, Thyroid Disorder Additional Past Medical History / Comment(s): Diet Controlled Diabetes, prone to hypoglycemia. Episodes of lightheadedness and near syncope. Severe tracheobronchomalacia. 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 Occasional tachycardia especially when eating and with activity, controlled with Metoprolol. CPAP use. Thyroid nodules. Spinal stenosis. Vitamin D Deficiency, Iron Deficiency Anemia, low potassium with HCTZ on potassium now. Migraines. Bruises easily. Oxygen at 2-3 liters at hs and PRN. POTS syndrome. Mild sliding hiatal hernia. Bronchietasis. History of Any Multi-Drug Resistant Organisms: None Reported Date of last positivie culture/infection: 03/2018 MDRO Source:: Lung Past Surgical History: Appendectomy, Back Surgery, Bariatric Surgery, Section, Cholecystectomy, Heart Catheterization, Hysterectomy, Orthopedic Surgery, Tonsillectomy Additional Past Surgical History / Comment(s): Gastric sleeve with hiatal hernia repair, spinal fusion/decompression L4-L5 and S1, bilateral shoulder arthroscopies, 3 laparotomies due to pain/ovarian cyst/adhesions, D&Cs X2 after miscarriages, lipoma removed from left side of back, colonoscopy, EGD's, trach eal stent removal X3, trachealbronchoplasty, tracheal resection 11/17. Past Anesthesia/Blood Transfusion Reactions: Previous Problems w/ Anesthesia, Motion Sickness, Postoperative Nausea & Vomiting (PONV) Additional Past Anesthesia/Blood Transfusion Reaction / Comment(s): Difficult IV start, difficult intubation("weak airway") - states they use airway band, states occasional memory issues after anesthesia. Past Psychological History: Anxiety, Depression Smoking Status: Never smoker Past Alcohol Use History: None Reported Past Drug Use History: None Reported - Past Family History Father Family Medical History: Cancer Additional Family Medical History / Comment(s): . Mother Family Medical History: Cancer Additional Family Medical History / Comment(s): . Brother(s) Family Medical History: Pulmonary Embolus General Exam - General Exam Comments Initial Comments: GENERAL: Patient is well-developed and well-nourished. Patient is nontoxic and well- hydrated and is in mild distress. ENT: Neck is soft and supple. No significant lymphadenopathy is noted. Oropharynx is clear. Moist mucous membranes. Neck has full range of motion without eliciting any pain. EYES: The sclera were anicteric and conjunctiva were pink and moist. Extraocular movements were intact and pupils were equal round and reactive to light. Eyelids were unremarkable. PULMONARY: Unlabored respirations. Good breath sounds bilaterally. No audible rales rhonchi or wheezing was noted. CARDIOVASCULAR: There is a regular rate and rhythm without any murmurs gallops or rubs. ABDOMEN: Soft and nontender with normal bowel sounds. No palpable organomegaly was noted. There is no palpable pulsatile mass. SKIN: Skin is clear with no lesions or rashes and otherwise unremarkable. NEUROLOGIC: Patient is alert and oriented x3. Cranial nerves II through XII are grossly intact. Motor and sensory are also intact. Normal speech, volume and content. Symmetrical smile. MUSCULOSKELETAL: Normal extremities with adequate strength and full range of motion. No lower extremity swelling or edema. No calf tenderness. LYMPHATICS: No significant lymphadenopathy is noted PSYCHIATRIC: Normal psychiatric evaluation. Normal interpersonal interactions appears functionally intact in deals appropriately with others. No signs of depression. Limitations: no limitations Course Vital Signs 07/19/22 12:56 Temperature 97.8 F Pulse Rate 76 Respiratory 20 Rate Blood Pressure 142/85 O2 Sat by Pulse 97 Oximetry Medical Decision Making - Medical Decision Making EKG was interpreted by myself shows a sinus rhythm at 70 bpm NM interval 287 QRSs 87 QT interval 397 QTC is 417. Patient's EKG shows no ST segment elevation or depression. Was pt. sent in by a medical professional or institution (, PA, LAB SCIENTIST, urgent care, hospital, or [facility]...) When possible be specific @ -No Did you speak to anyone other than the patient for history (EMS, parent, family, police, friend...)? What history was obtained from this source @ -No Did you review nursing and triage notes (agree or disagree)? Why? @ -I reviewed and agree with nursing and triage notes Were old charts reviewed (outside hosp., previous admission, EMS record, old EKG, old radiological studies, urgent care reports/EKG's, [facility] records)? Report findings @ -Prior radiological studies and prior lab work on this patient. Differential Diagnosis (chest pain, altered mental status, abdominal pain women, abdominal pain men, vaginal bleeding, weakness, fever, dyspnea, syncope, headache, dizziness, GI bleed, back pain, seizure, CVA, palpatations, mental health, musculoskeletal)? @ -Differential Chest Pain: Stable Angina, Unstable Angina, STEMI, NSTEMI Aortic Dissection, Pneumothorax, Musculoskeletal, Esophageal Spasm GERD, Cholecystitis, Pancreatitis, Zoster, this is not meant to be an all-inclusive list. EKG interpreted by me (3pts min.). @ -As above X-rays interpreted by me (1pt min.). @ -X-ray was interpreted by myself I see no acute abnormality. CT interpreted by me (1pt min.). @ -None done U/S interpreted by me (1pt. min.). @ -None done What testing was considered but not performed or refused? (CT, X-rays, U/S, labs)? Why? @ -None What meds were considered but not given or refused? Why? @ -None Did you discuss the management of the patient with other professionals (professionals i.e. , PA, LAB SCIENTIST, lab, RT, psych nurse, social security assessor, weed burner, teacher, sba business development officer, egg caser)? Give summary @ -I spoke with sounds physician's agreed to admit the patient admitted the patient wrote admitting orders Was smoking cessation discussed for >3mins.? @ -No Was critical care preformed (if so, how long)? @ -No Were there social determinants of health that impacted care today? How? (Homelessness, low income, unemployed, alcoholism, drug addiction, transportation, low edu. Level, literacy, decrease access to med. care, prison, re hab)? @ -No Was there de-escalation of care discussed even if they declined (Discuss DNR or withdrawal of care, Hospice)? DNR status @ -No What co-morbidities impacted this encounter? (DM, HTN, Smoking, COPD, CAD, Cancer, CVA, ARF, Chemo, Hep., AIDS, mental health diagnosis, sleep apnea, morbid obesity)? @ -None Was patient admitted / discharged? Hospital course, mention meds given and route, prescriptions, significant lab abnormalities, going to OR and other pertinent info. @ -Patient was having chest discomfort I gave the patient aspirin and nitroglycerin. Patient did feel little better when I went back and reviewed lab work and x-rays with her. Patient still continued to have some chest discomfort however. I spoke with sounds physician's agreed to admit the patient admitted the patient wrote admitting orders Undiagnosed new problem with uncertain prognosis? @ -No Drug Therapy requiring intensive monitoring for toxicity (Heparin, Nitro, Insulin, Cardizem)? @ -No Were any procedures done? @ -No Diagnosis/symptom? @ -Chest pain Acute, or Chronic, or Acute on Chronic? @ -Acute Uncomplicated (without systemic symptoms) or Complicated (systemic symptoms)? @ -Complicated Side effects of treatment? @ -No Exacerbation, Progression, or Severe Exacerbation? @ -No Poses a threat to life or bodily function? How? (Chest pain, [place], [place], pneumonia, PE, COPD, DKA, ARF, appy, cholecystitis, CVA, Diverticulitis, Homicidal, Suicidal, threat to staff... and all critical care pts) @ -Yes This could lead to poor perfusion and end organ dysfunction - Lab Data Result diagrams: 07/19/22 14:08 07/19/22 14:08 Lab Results 07/19/22 07/19/22 07/19/22 Range/Units 14:08 14:08 14:08 WBC 10.3 (3.8-10.6) k/uL RBC 4.78 (3.80-5.40) m/uL Hgb 12.9 (11.4-16.0) gm/dL Hct 38.9 (34.0-46.0) % MCV 81.5 (80.0-100.0) fL MCH 27.0 (25.0-35.0) pg MCHC 33.1 (31.0-37.0) g/dL RDW 14.0 (11.5-15.5) % Plt Count 232 (150-450) k/uL MPV 8.4 Neutrophils % 74 % Lymphocytes % 19 % Monocytes % 4 % Eosinophils % 1 % Basophils % 0 % Neutrophils # 7.6 (1.3-7.7) k/uL Lymphocytes # 1.9 (1.0-4.8) k/uL Monocytes # 0.4 (0-1.0) k/uL Eosinophils # 0.1 (0-0.7) k/uL Basophils # 0.0 (0-0.2) k/uL PT 9.7 (9.0-12.0) sec INR 0.9 (<1.2) APTT 25.5 (22.0-30.0) sec Sodium 141 (137-145) mmol/L Potassium 3.9 (3.5-5.1) mmol/L Chloride 102 (98-107) mmol/L Carbon Dioxide 27 (22-30) mmol/L Anion Gap 12 mmol/L BUN 18 H (7-17) mg/dL Creatinine 0.68 (0.52-1.04) mg/dL Est GFR (CKD-EPI)AfAm >90 (>60 ml/min/1.73 sqM) Est GFR (CKD-EPI)NonAf >90 (>60 ml/min/1.73 sqM) Glucose 79 (74-99) mg/dL Calcium 9.6 (8.4-10.2) mg/dL Magnesium 2.1 (1.6-2.3) mg/dL Total Bilirubin 0.7 (0.2-1.3) mg/dL AST 39 H (14-36) U/L ALT 26 (4-34) U/L Alkaline Phosphatase 81 (38-126) U/L Troponin I (0.000-0.034) ng/mL Total Protein 8.0 (6.3-8.2) g/dL Albumin 4.8 (3.5-5.0) g/dL 07/19/22 Range/Units 14:08 WBC (3.8-10.6) k/uL RBC (3.80-5.40) m/uL Hgb (11.4-16.0) gm/dL Hct (34.0-46.0) % MCV (80.0-100.0) fL MCH (25.0-35.0) pg MCHC (31.0-37.0) g/dL RDW (11.5-15.5) % Plt Count (150-450) k/uL MPV Neutrophils % % Lymphocytes % % Monocytes % % Eosinophils % % Basophils % % Neutrophils # (1.3-7.7) k/uL Lymphocytes # (1.0-4.8) k/uL Monocytes # (0-1.0) k/uL Eosinophils # (0-0.7) k/uL Basophils # (0-0.2) k/uL PT (9.0-12.0) sec INR (<1.2) APTT (22.0-30.0) sec Sodium (137-145) mmol/L Potassium (3.5-5.1) mmol/L Chloride (98-107) mmol/L Carbon Dioxide (22-30) mmol/L Anion Gap mmol/L BUN (7-17) mg/dL Creatinine (0.52-1.04) mg/dL Est GFR (CKD-EPI)AfAm (>60 ml/min/1.73 sqM) Est GFR (CKD-EPI)NonAf (>60 ml/min/1.73 sqM) Glucose (74-99) mg/dL Calcium (8.4-10.2) mg/dL Magnesium (1.6-2.3) mg/dL Total Bilirubin (0.2-1.3) mg/dL AST (14-36) U/L ALT (4-34) U/L Alkaline Phosphatase (38-126) U/L Troponin I <0.012 (0.000-0.034) ng/mL Total Protein (6.3-8.2) g/dL Albumin (3.5-5.0) g/dL Disposition Clinical Impression: Chest pain Disposition: ADMITTED IP TO THIS [facility] Referrals: Joseph Kaba MD [Primary Care Provider] - 1-2 days Time of Disposition: 15:08
[2022-07-19 14:16] LABS: Basophils % (A) 0 %; Eosinophils # (A) 0.1 k/uL (0-0.7); Eosinophils % (A) 1 %; HCT 38.9 % (34.0-46.0); HGB 12.9 gm/dL (11.4-16.0); Lymphocytes # (A) 1.9 k/uL (1.0-4.8); Lymphocytes % (A) 19 %; MCHC 33.1 g/dL (31.0-37.0); MCV 81.5 fL (80.0-100.0); Mean Platelet Volume 8.4; Monocytes # (A) 0.4 k/uL (0-1.0); Monocytes % (A) 4 %; Neutrophils # (A) 7.6 k/uL (1.3-7.7); Neutrophils % (A) 74 %; Platelet Count 232 k/uL (150-450); RBC 4.78 m/uL (3.80-5.40); WBC 10.3 k/uL (3.8-10.6)
[2022-07-19 14:31] LABS: ALT 26 U/L (4-34); AST 39 U/L (14-36); African American GFR (CKD) >90 (>60 ml/min/1.73 sqM); Albumin 4.8 g/dL (3.5-5.0); Alkaline Phosphatase 81 U/L (38-126); Anion Gap 12 mmol/L; Blood Urea Nitrogen 18 mg/dL (7-17); Calcium 9.6 mg/dL (8.4-10.2); Carbon Dioxide 27 mmol/L (22-30); Chloride 102 mmol/L (98-107); Magnesium 2.1 mg/dL (1.6-2.3); Non-African American GFR(CKD) >90 (>60 ml/min/1.73 sqM); Potassium 3.9 mmol/L (3.5-5.1); Sodium 141 mmol/L (137-145); Total Bilirubin 0.7 mg/dL (0.2-1.3)
[2022-07-19 14:36] LABS: INR 0.9 (<1.2); Partial Thromboplastin Time 25.5 sec (22.0-30.0); Prothrombin Time 9.7 sec (9.0-12.0)
[2022-07-19 14:49] LABS: Glucose 79 mg/dL (74-99)
[2022-07-19] MEDS ORDERED: NITROGLYCERIN SL TABS 0.4 MG TAB SUBLINGUAL PRN (15:08)
--- NOTE | 2022-07-19 16:23 | P.HPIM ---
History of Present Illness H&P Date: 07/19/22 History of Presenting Illness: Patient is a very pleasant 57-year-old female with a past medical history of tracheobronchial malacia with tracheal resection in 2021, COPD, CAD with a reported episode of viral cardiomyopathy, hypertension, hyperlipidemia, hy pothyroidism, obstructive sleep apnea CPAP dependent, JOHNSON, chronic back pain with previous back surgeries, and previous bariatric surgery. Patient presented to the emergency department with a chief complaint of chest pain. Patient reports while driving to her linux admin engineer appointment today she began having pain to her left anterior chest radiating into her left shoulder blade and into her left shoulder down her left arm. Patient reports initially she tried to ignore this pain thinking it would go away and went ahead to her doctor's appointment. Patient reports she was still having this pain after leaving her linux admin engineer office and it was now radiating into her right shoulder blade as well so she decided to stop by her puppy sitter's office to see if she can stop in for an EKG. Patient states when she got there she was out of breath and tearful from the pain she was experiencing to her chest and was instructed to go to the emergency department for evaluation. Patient reports experiencing an episode of dizziness/lightheadedness earlier today and also states intermittent lower extremity edema, and worsening shortness of breath over the past couple of days. Patient states she has noticed significant exertional shortness of breath She denies having any palpitations, diaphoresis, headache, palpitations, increase her changes and chronic cough/congestion, fevers, chills, exposure to known ill contacts, nausea, vomiting, or experiencing any numbness/weakness in her extremities. She underwent full evaluation in the emergency department. Labs completed and reviewed. CBC, coagulation profile, and CMP were completed showing no significant abnormalities. Troponin negative at less than 0.012. EKG was completed showing normal sinus rhythm at 70 bpm with T-wave inversion in inferior leads 3 and aVF upon personal review and interpretation. Chest x-ray completed and reviewed, lungs appear clear and radiology report stating negative for acute cardiopulmonary process. Discussed patient complains, clinical exam findings, laboratory analysis, and imaging results in detail with the ED physician. Patient being admitted under our services to observation unit with telemetry at this time. Consults placed to both cardiology and pulmonology. Review of systems: Pertinent positives and negatives as discussed in HPI, a complete review of systems was performed and all other systems are negative. Physical exam: Vital signs reviewed and stable. General: Nontoxic, no distress and appears stated age. Obese Derm: Skin warm and dry, normal coloration for ethnicity. Head: Atraumatic, normocephalic and symmetric. Eyes: EOMs intact, no lid lag, and anicteric sclera Mouth: no lip lesions, mucus membranes moist Cardiovascular: regular rate and rhythm with normal S1S2, no murmur, positive posterior tibial pulses bilaterally, and cap refill < 2 seconds. Lungs: Respirations even, regular, and unlabored on room air. Lungs diminished, no rhonchi, no rales, no wheezing, and no accessory muscle usage. Abdominal: soft, nontender to palpation, no guarding, no appreciable organome ramila Ext: ROM intact. No gross muscle atrophy, no edema, no contractures Neuro: Speech clear, face symmetrical and CN II-XII grossly intact with no noted focal neuro deficits Psych: Alert and oriented to person, place, time, and situation. Appropriate and pleasant affect. Assessment and Plan of Care: Chest pain, rule out acute coronary event History of tracheobronchial malacia status post tracheal resection COPD Obstructive sleep apnea CPAP dependent History of CAD with a reported episode of viral cardiomyopathy Hypertension Hyperlipidemia -Labs completed and reviewed. CBC, coagulation profile, and CMP were completed showing no significant abnormalities. Troponin negative at less than 0.012. -EKG was completed showing normal sinus rhythm at 70 bpm with T-wave inversion in inferior leads 3 and aVF upon personal review and interpretation. -Chest x-ray completed and reviewed, lungs appear clear and radiology report stating negative for acute cardiopulmonary process. -Discussed patient complains, clinical exam findings, laboratory analysis, and imaging results in detail with the ED physician. Patient being admitted under our services to observation unit with telemetry at this time. -Consult cardiology -Consult to Pulmonology -Telemetry monitoring -Trend troponins -Oxygenation to be administered and titrated as needed to maintain SPO2 equal to or greater than 92% -Monitor Pulse-oximetry -Duonebs scheduled four times daily and as needed for SOB and/or wheezing -Continue with home Symbicort The patient is admitted with an anticipated less than 2 midnight stay for evaluation of chest pain CODE STATUS: Full code DVT prophylaxis: Heparin Discussed with: Patient, patient's , RN, and ED physician. Anticipated discharge date: 24-[address]: Home Patient was seen independently by Nurse Practitioner. This document was prepared using [employer] dictation software. Please allow for errors in insurance risk analyst while rare they do occur. Past Medical History Past Medical History: Asthma, Chest Pain / Angina, COPD, Diabetes Mellitus, GERD/Reflux, Hyperlipidemia, Hypertension, Musculoskeletal Disorder, Os teoarthritis (OA), Pneumonia, Sleep Apnea/CPAP/BIPAP, Thyroid Disorder Additional Past Medical History / Comment(s): Diet Controlled Diabetes, prone to hypoglycemia. Episodes of lightheadedness and near syncope. Severe tracheobronchomalacia. 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 Occasional tachycardia especially when eating and with activity, controlled with Metoprolol. CPAP use. Thyroid nodules. Spinal stenosis. Vitamin D Deficiency, Iron Deficiency Anemia, low potassium with HCTZ on potassium now. Migraines. Bruises easily. Oxygen at 2-3 liters at hs and PRN. POTS syndrome. Mild sliding hiatal hernia. Bronchietasis. History of Any Multi-Drug Resistant Organisms: None Reported Date of last positivie culture/infection: 03/2018 MDRO Source:: Lung Past Surgical History: Appendectomy, Back Surgery, Bariatric Surgery, Section, Cholecystectomy, Heart Catheterization, Hysterectomy, Orthopedic Surgery, Tonsillectomy Additional Past Surgical History / Comment(s): Gastric sleeve with hiatal hernia repair, spinal fusion/decompression L4-L5 and S1, bilateral shoulder arthroscopies, 3 laparotomies due to pain/ovarian cyst/adhesions, D&Cs X2 after miscarriages, lipoma removed from left side of back, colonoscopy, EGD's, trach eal stent removal X3, trachealbronchoplasty, tracheal resection 11/17. Past Anesthesia/Blood Transfusion Reactions: Previous Problems w/ Anesthesia, Motion Sickness, Postoperative Nausea & Vomiting (PONV) Additional Past Anesthesia/Blood Transfusion Reaction / Comment(s): Difficult IV start, difficult intubation("weak airway") - states they use airway band, states occasional memory issues after anesthesia. Past Psychological History: Anxiety, Depression Smoking Status: Never smoker Past Alcohol Use History: None Reported Past Drug Use History: None Reported - Past Family History Father Family Medical History: Cancer Additional Family Medical History / Comment(s): . Mother Family Medical History: Cancer Additional Family Medical History / Comment(s): . Brother(s) Family Medical History: Pulmonary Embolus Medications and Allergies Home Medications Medication Instructions Recorded Confirmed Type Montelukast [Singulair] 10 mg PO DAILY 04/16/17 07/19/22 History Vitamin B Complex 1 cap PO DAILY 02/15/18 07/19/22 History L.acidoph,Paracasei, B.lactis 1 cap PO DAILY 08/23/18 07/19/22 History [Probiotic] Multivitamins, Thera [Multivitamin 1 tab PO DAILY 08/23/18 07/19/22 History (formulary)] calcium polycarbophiL [Fibercon] 625 mg PO DAILY 09/26/18 07/19/22 History Omeprazole 40 mg PO BID 08/19/19 07/19/22 History Ipratropium-Albuterol Nebulize 3 ml INHALATION RT-BID PRN 05/10/20 07/19/22 History [Duoneb 0.5 mg-3 mg/3 ml Soln] Acetaminophen Tab [Tylenol] 1,000 mg PO Q6H PRN 03/06/21 07/19/22 History Albuterol Sulfate [Proair Hfa] 1 - 2 puff INHALATION RT-QID PRN 03/06/21 07/19/22 History Atorvastatin [Lipitor] 20 mg PO HS 03/06/21 07/19/22 History Digestive Enzymes 1 cap PO DAILY 03/06/21 07/19/22 History Fluticasone Nasal [place] [Flonase 2 spr EA NOSTRIL QAM PRN 03/06/21 07/19/22 History Nasal [place]] Triamterene-Hctz 37.5-25Mg 1 tab PO DAILY 03/06/21 07/19/22 History [Maxzide 37.5-25] Budesonide/Glycopyr/Formoterol 2 puff INHALATION RT-BID 01/24/22 07/19/22 History [Breztri Aerosphere Inhaler] Docusate [Colace] 100 mg PO BID PRN 01/24/22 07/19/22 History Gabapentin [Neurontin] 100 mg PO TID 01/24/22 07/19/22 History Potassium Chloride ER [K-Dur 20] 20 meq PO DAILY PRN 01/24/22 07/19/22 History Furosemide [Lasix] 20 mg PO DAILY PRN 02/15/22 07/19/22 History Cholecalciferol [Vitamin D3 (125 125 mcg PO DAILY 07/19/22 07/19/22 History Mcg = 5000 Iu)] Estrogens, Conjugated Cream 1 applicator VAGINAL DIRECTED 07/19/22 07/19/22 History [Premarin Vaginal Cream] Metoprolol Succinate (ER) [Toprol 50 mg PO DAILY 07/19/22 07/19/22 History Xl] Mupirocin 2% Oint [Bactroban 2% 1 applic TOPICAL BID 07/19/22 07/19/22 History Oint] Allergies Allergy/AdvReac Type Severity Reaction Status Date / Time cat dander Allergy eye Verified 07/19/22 15:51 swelling ciprofloxacin [From Cipro] Allergy Itching Verified 07/19/22 15:51 gluten Allergy Abdominal Verified 07/19/22 15:51 Pain/HEADACHES, constipation NSAIDS (Non-Steroidal AdvReac Abdominal Verified 07/19/22 15:51 Anti-Inflamma Pain shellfish derived [Shellfish] AdvReac Vomiting Verified 07/19/22 15:51 Physical Exam Vitals: Vital Signs Temp Pulse Resp BP Pulse Ox 07/19/22 12:56 97.8 F 76 20 142/85 97 Intake and Output 07/19/22 07/19/22 07/19/22 06:59 14:59 22:59 Other: Weight 98.883 kg Results CBC & Chem 7: 07/19/22 14:08 07/19/22 14:08 Labs: Abnormal Lab Results - Last 24 Hours (Table) 07/19/22 Range/Units 14:08 BUN 18 H (7-17) mg/dL AST 39 H (14-36) U/L
[2022-07-19] MEDS: NITROGLYCERIN OINT 1 INCH/GM PACKET TOPICAL SCH ×2 (17:24→23:04)
[2022-07-19] MEDS ORDERED: FLUTICASONE 50MCG/SPRAY NASAL 16GM EA NOSTRIL PRN (18:27)
[2022-07-19] MEDS ORDERED: FUROSEMIDE 20 MG TAB PO PRN (18:27)
[2022-07-19] MEDS ORDERED: IPRATROPIUM-ALBUTEROL 3 ML NEB INHALATION PRN (18:28)
[2022-07-19] MEDS: PANTOPRAZOLE 40 MG TABLET PO SCH (20:01)
[2022-07-19] MEDS: GABAPENTIN 100 MG CAP PO SCH (20:01)
[2022-07-19] MEDS ORDERED: ATORVASTATIN 20 MG TAB PO SCH (21:00)
[2022-07-19] MEDS: IPRATROPIUM-ALBUTEROL 3 ML NEB INHALATION SCH (21:32)
[2022-07-19] MEDS: SYMBICORT 160-4.5 MCG INHALER INHALATION SCH (21:33)
[2022-07-19] MEDS: ACETAMINOPHEN TAB 325 MG TAB PO PRN (23:03)
[2022-07-19] MEDS: HEPARIN SODIUM,PORCINE/PF 5,000 UNIT/0.5 ML SYRINGE SQ SCH (23:03)
--- NOTE | 2022-07-20 01:29 | P.CNPUL ---
History of Present Illness Consult date: 07/20/22 Requesting physician: Vaibhav Salomon Reason for consult: chest pain Chief complaint: Chest pain History of present illness: I am seeing this patient in new consultation today 07/20/2022 on the general medical floor after the patient presented with atypical chest pain. Patient is a 57-year-old female who is followed in the office by Dr. Johnson for moderate to severe persistent bronchial asthma currently maintained on Breztri, albuterol, and Trezspire. Patient was recently started on Trezspire, and has received a total of 3 doses. She reports better control of her asthma since initiation. Patient also has severe tracheobronchomalacia status post tracheoplasty on 03/31/2021 and cervical tracheal resection on 11/10/2021. Patient also has a history significant for nonischemic cardiomyopathy possibly viral, obstructive sleep apnea with home CPAP, POTS, hypertension, hyperlipidemia. Patient presented to the emergency room yesterday afternoon after experiencing chest pain while driving to her dermatology appointment. She did try to go to her hospitality housekeeper, Dr. Singh, and was directed to the emergency room. The chest pain is described as substernal radiating to her back and left arm. It was associated with some shortness of breath. Her chest reportedly still hurts. She denies any infectious symptoms such as fever, chills, change from her chronic cough, sputum production, hemoptysis. She denies any significant abdominal pain, nausea or vomiting, diarrhea, constipation. She's had a previous cholecystectomy. Patient has reportedly had prior heart catheterization without any significant coronary artery disease demonstrated. On arrival to the emergency room, the patient's ECG did not demonstrate any ischemic changes. Troponins have been negative 3. Chest x-ray on arrival showed no acute cardiopulmonary process. On auscultation, her asthma does not appear active. She appears comfortable, on home CPAP with supplemental 3 L, in no acute distress. CBC and BMP on arrival were unremarkable. Vital signs are stable. Review of Systems REVIEW OF SYSTEMS: CONSTITUTIONAL: Denies any recent significant weight loss or weight gain. EYES: Denies change in vision. EARS, NOSE, MOUTH, THROAT: Denies headaches, denies sore throat. CARDIOVASCULAR: Denies lower extremity edema, orthopnea, palpitations or syncopal episodes. Admits chest pain as described in HPI RESPIRATORY: Denies cough, congestion or hemoptysis. Admits to associated shortness of breath GASTROINTESTINAL: Denies change in appetite, abdominal pain, nausea and vomiting, or diarrhea GENITOURINARY: Denies hematuria, denies infections. MUSKULOSKELETAL: Denies pain, denies swelling. INTEGUMENTARY: Denies rash, denies eczema. NEUROLOGICAL: Denies recent memory loss, no recent seizure activity. PSYCHIATRIC: Denies anxiety, denies depression. HEMATOLOGIC/LYMPHATIC: Denies anemia, denies enlarged lymph node Past Medical History Past Medical History: Asthma, Chest Pain / Angina, COPD, Diabetes Mellitus, GERD/Reflux, Hyperlipidemia, Hypertension, Musculoskeletal Disorder, Osteoarthritis (OA), Pneumonia, Sleep Apnea/CPAP/BIPAP, Thyroid Disorder Additional Past Medical History / Comment(s): Diet Controlled Diabetes, prone to hypoglycemia. Episodes of lightheadedness and near syncope. Severe tracheobronchomalacia. 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 Occasional tachycardia especially when eating and with activity, controlled with Metoprolol. CPAP use. Thyroid nodules. Spinal stenosis. Vitamin D Deficiency, Iron Deficiency Anemia, low potassium with HCTZ on potassium now. Migraines. Bruises easily. Oxygen at 2-3 liters at hs and PRN. POTS syndrome. Mild sliding hiatal hernia. Bronchietasis. History of Any Multi-Drug Resistant Organisms: None Reported Date of last positivie culture/infection: 03/2018 MDRO Source:: Lung Past Surgical History: Appendectomy, Back Surgery, Bariatric Surgery, Section, Cholecystectomy, Heart Catheterization, Hysterectomy, Orthopedic Surgery, Tonsillectomy Additional Past Surgical History / Comment(s): Gastric sleeve with hiatal hernia repair, spinal fusion/decompression L4-L5 and S1, bilateral shoulder arthroscopies, 3 laparotomies due to pain/ovarian cyst/adhesions, D&Cs X2 after miscarriages, lipoma removed from left side of back, colonoscopy, EGD's, tracheal stent removal X3, trachealbronchoplasty, tracheal resection 11/17. Past Anesthesia/Blood Transfusion Reactions: Previous Problems w/ Anesthesia, Motion Sickness, Postoperative Nausea & Vomiting (PONV) Additional Past Anesthesia/Blood Transfusion Reaction / Comment(s): Difficult IV start, difficult intubation("weak airway") - states they use airway band, states occasional memory issues after anesthesia. Past Psychological History: Anxiety, Depression Smoking Status: Never smoker Past Alcohol Use History: None Reported Past Drug Use History: None Reported - Past Family History Father Family Medical History: Cancer Additional Family Medical History / Comment(s): . Mother Family Medical History: Cancer Additional Family Medical History / Comment(s): . Brother(s) Family Medical History: Pulmonary Embolus Medications and Allergies Home Medications Medication Instructions Recorded Confirmed Type Montelukast [Singulair] 10 mg PO DAILY 04/16/17 07/19/22 History Vitamin B Complex 1 cap PO DAILY 02/15/18 07/19/22 History L.acidoph,Paracasei, B.lactis 1 cap PO DAILY 08/23/18 07/19/22 History [Probiotic] Multivitamins, Thera [Multivitamin 1 tab PO DAILY 08/23/18 07/19/22 History (formulary)] calcium polycarbophiL [Fibercon] 625 mg PO DAILY 09/26/18 07/19/22 History Omeprazole 40 mg PO BID 08/19/19 07/19/22 History Ipratropium-Albuterol Nebulize 3 ml INHALATION RT-BID PRN 05/10/20 07/19/22 History [Duoneb 0.5 mg-3 mg/3 ml Soln] Acetaminophen Tab [Tylenol] 1,000 mg PO Q6H PRN 03/06/21 07/19/22 History Albuterol Sulfate [Proair Hfa] 1 - 2 puff INHALATION RT-QID PRN 03/06/21 07/19/22 History Atorvastatin [Lipitor] 20 mg PO HS 03/06/21 07/19/22 History Digestive Enzymes 1 cap PO DAILY 03/06/21 07/19/22 History Fluticasone Nasal [place] [Flonase 2 spr EA NOSTRIL QAM PRN 03/06/21 07/19/22 History Nasal [place]] Triamterene-Hctz 37.5-25Mg 1 tab PO DAILY 03/06/21 07/19/22 History [Maxzide 37.5-25] Budesonide/Glycopyr/Formoterol 2 puff INHALATION RT-BID 01/24/22 07/19/22 History [Breztri Aerosphere Inhaler] Docusate [Colace] 100 mg PO BID PRN 01/24/22 07/19/22 History Gabapentin [Neurontin] 100 mg PO TID 01/24/22 07/19/22 History Potassium Chloride ER [K-Dur 20] 20 meq PO DAILY PRN 01/24/22 07/19/22 History Furosemide [Lasix] 20 mg PO DAILY PRN 02/15/22 07/19/22 History Cholecalciferol [Vitamin D3 (125 125 mcg PO DAILY 07/19/22 07/19/22 History Mcg = 5000 Iu)] Estrogens, Conjugated Cream 1 applicator VAGINAL DIRECTED 07/19/22 07/19/22 History [Premarin Vaginal Cream] Metoprolol Succinate (ER) [Toprol 50 mg PO DAILY 07/19/22 07/19/22 History Xl] Mupirocin 2% Oint [Bactroban 2% 1 applic TOPICAL BID 07/19/22 07/19/22 History Oint] tiZANidine [Zanaflex] 4 mg PO Q12HR PRN 07/19/22 07/19/22 History traMADol HCl [Ultram] 50 mg PO Q6HR PRN 07/19/22 07/19/22 History Allergies Allergy/AdvReac Type Severity Reaction Status Date / Time cat dander Allergy eye Verified 07/19/22 15:51 swelling ciprofloxacin [From Cipro] Allergy Itching Verified 07/19/22 15:51 gluten Allergy Abdominal Verified 07/19/22 15:51 Pain/HEADACHES, constipation NSAIDS (Non-Steroidal AdvReac Abdominal Verified 07/19/22 15:51 Anti-Inflamma Pain shellfish derived [Shellfish] AdvReac Vomiting Verified 07/19/22 15:51 Physical Exam Vitals: Vital Signs Temp Pulse Pulse Resp BP BP Pulse Ox 07/19/22 21:48 76 07/19/22 21:34 72 07/19/22 20:00 89 16 07/19/22 19:33 97.7 F 89 16 106/66 97 07/19/22 17:28 97.8 F 78 18 108/67 92 L 07/19/22 17:00 97.8 F 81 18 108/67 92 L 07/19/22 12:56 97.8 F 76 20 142/85 97 Intake and Output 07/19/22 07/19/22 07/20/22 14:59 22:59 06:59 Other: Voiding Method Toilet # Voids 1 Weight 98.883 kg 98.883 kg GENERAL EXAM: Alert, 57-year-old obese white female, comfortable in no apparent distress. HEAD: Normocephalic and atraumatic EYES: Normal reaction of pupils, equal size. NOSE: Clear with pink turbinates. THROAT: No erythema or exudates. NECK: No masses, no JVD. CHEST: No chest wall deformity. LUNGS: Equal air entry with no crackles, wheeze, rhonchi or dullness. On home CPAP with supplemental 3 L. No conversational dyspnea or accessory muscle use.. CVS: S1 and S2 normal with no audible murmur, regular rhythm. No extra heart sounds ABDOMEN: No hepatosplenomegaly, active bowel sounds, no guarding or rigidity. SPINE: No scoliosis or deformity SKIN: No rashes CENTRAL NERVOUS SYSTEM: No focal deficits, tone is normal in all 4 extremities. EXTREMITIES: There is no peripheral edema, clubbing, or cyanosis. Peripheral pulses are intact. Results - Laboratory Findings CBC and BMP: 07/19/22 14:08 07/19/22 14:08 PT/INR, D-dimer PT 9.7 sec (9.0-12.0) 07/19/22 14:08 INR 0.9 (<1.2) 07/19/22 14:08 Abnormal lab findings: Abnormal Labs 07/19/22 14:08 BUN 18 H AST 39 H - Diagnostic Findings Chest x-ray: image reviewed Assessment and Plan Assessment: Atypical chest pain, no evidence of ischemia on ECG. Troponins have been negative 3. Stable moderate to severe persistent bronchial asthma normally maintained on a combination of albuterol, Breztri, and Trezspire. Patient was recently started on Trezspire, and has received a total of 3 doses. Chest x-ray showed no focal consolidation or evidence of pneumonia Severe tracheobronchomalacia status post tracheoplasty on 03/31/2021 and cervical tracheal resection on 11/10/2021 Obstructive sleep apnea, with home CPAP, compliance has been an issue. She does normally utilizes 3 L/m supplemental oxygen at bedtime. Morbid obesity with a BMI of 43 and previous bariatric surgery History of nonischemic cardiomyopathy, possibly viral Degenerative disc disease, is seen at the pain clinic Hypertension Hyperlipidemia Plan: Patient's medications, labs, chest x-ray reviewed Start the patient combination of Symbicort and bronchodilators Home CPAP at bedtime versus room air Cardiology was consulted We will continue to follow I have personally seen and examined the patient, performed the documentation and the assessment and plan as written. Number of minutes spent on the visit:20 Time with Patient: Greater than 30
[2022-07-20] MEDS: PANTOPRAZOLE 40 MG TABLET PO SCH (06:18)
[2022-07-20] MEDS: NITROGLYCERIN OINT 1 INCH/GM PACKET TOPICAL SCH (06:18)
[2022-07-20 08:03] VITALS: BP 99/63; RESP 17; TEMP 97.6
[2022-07-20] MEDS: SYMBICORT 160-4.5 MCG INHALER INHALATION SCH (08:50)
[2022-07-20] MEDS: IPRATROPIUM-ALBUTEROL 3 ML NEB INHALATION SCH ×2 (08:50→12:12)
[2022-07-20] MEDS ORDERED: TRIAMTERENE-HCTZ 37.5-25MG 1 EACH TAB PO SCH (09:00)
[2022-07-20] MEDS ORDERED: ASPIRIN 325 MG TAB PO SCH (09:00)
[2022-07-20] MEDS ORDERED: METOPROLOL SUCCINATE (ER) 50 MG TAB.ER.24H PO SCH (09:00)
[2022-07-20] MEDS ORDERED: CHOLECALCIFEROL 125 MCG (5000 IU) TABLET PO SCH (09:00)
[2022-07-20] MEDS ORDERED: MONTELUKAST 10 MG TAB PO SCH (09:00)
[2022-07-20] MEDS: HEPARIN SODIUM,PORCINE/PF 5,000 UNIT/0.5 ML SYRINGE SQ SCH ×2 (09:07→15:35)
[2022-07-20] MEDS: GABAPENTIN 100 MG CAP PO SCH ×2 (09:10→15:38)
[2022-07-20 09:13] LABS: Chol/HDL Ratio 2.29 Ratio; LDL Cholesterol,Calculated 80.9 mg/dL (0.0-131.0); VLDL Calculation 17.78 mg/dL (5.00-40.00)
--- NOTE | 2022-07-20 10:51 | P.CRDCN ---
History of Present Illness Consult date: 07/20/22 History of present illness: HISTORY OF PRESENT ILLNESS: This is a 57-year-old female with a past medical history significant for tracheomalacia with previous tracheal resection, normal coronary arteries per cardiac catheterization in 2019, hypertension, hyperlipidemia, hypothyroidism, and obstructive sleep apnea. Patient follows in the office with Dr. Singh. We have been asked to see the patient in consultation for chest pain. Patient examined at the bedside. Patient states that yesterday she had chest pain that started yesterday morning and persisted throughout the day. She states the pain was in the left side of her chest and went into her left shoulder and arm. She also reports feeling short of breath. At the time of examination this morning, the patient denies having chest pain or pressure. Vital signs are stable. * EKG reveals sinus mechanism with no signs of acute ischemia * Chest xray negative for acute process * Laboratory data: WBC 10.3. Hemoglobin 12.9. Platelet count 232. D-dimer 0.23. Sodium 141. Potassium 3.9. BUN 18. Creatinine 0.68. Troponin negative 3. * Current home cardiac medications include Lasix 20 mg daily as needed, Lipitor 20 mg at night, Maxzide 37.5-25mg daily, metoprolol succinate 50 mg daily * Most recent echocardiogram obtained in March 2021 revealed normal ejection fraction of 55% with trace MR and mild TR * Cardiac catheterization history: October 2018 revealing normal coronary a rteries REVIEW OF SYSTEMS: At the time of my exam: CONSTITUTIONAL: Denies fever or chills. HEENT: Denies blurred vision, vision changes, or eye pain. Denies hemoptysis CARDIOVASCULAR: Denies chest pain. Denies orthopnea. Denies PND. Denies palpitations RESPIRATORY: Denies shortness of breath. GASTROINTESTINAL: Denies abdominal pain. Denies nausea or vomiting. HEMATOLOGIC: Denies bleeding disorders. GENITOURINARY: Denies any blood in urine. SKIN: Denies pruitis. Denies rash. PHYSICAL EXAM: VITAL SIGNS: Reviewed. GENERAL: Well-developed in no acute distress. HEENT: Head is normocephalic. Pupils are equal, round. Sclerae anicteric. Mucous membranes of the mouth are moist. Neck supple. No JVD or thyromegaly LUNGS: Respirations even and unlabored. Lungs essentially clear to auscultation bilaterally. HEART: Regular rate and rhythm. S1 and S2 heard. ABDOMEN: Soft. Nondistended. Nontender. EXTREMITIES: Normal range of motion. No clubbing or cyanosis. Peripheral pulses intact. No lower extremity edema NEUROLOGIC: Awake and alert. Oriented x 3. ASSESSMENT: Chest pain, troponins negative 3 Normal coronary arteries, per cardiac catheterization in October 2018 Tracheomalacia with previous tracheal resection Hypertension and hyperlipidemia Hypothyroidism Obstructive sleep apnea with CPAP use PLAN: An acute coronary event has been ruled out Obtain 2-D echo to assess cardiac structure and function Continue home cardiac medications Patient is stable for discharge home today from a cardiac standpoint with close outpatient follow-up with Dr. Singh Nurse practitioner note has been reviewed by physician. Signing provider agrees with the documented findings, assessment, and plan of care. Past Medical History Past Medical History: Asthma, Chest Pain / Angina, COPD, Diabetes Mellitus, GERD/Reflux, Hyperlipidemia, Hypertension, Musculoskeletal Disorder, Osteoarthritis (OA), Pneumonia, Sleep Apnea/CPAP/BIPAP, Thyroid Disorder Additional Past Medical History / Comment(s): Diet Controlled Diabetes, prone to hypoglycemia. Episodes of lightheadedness and near syncope. Severe tracheobronc homalacia. 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 Occasional tachycardia especially when eating and with activity, controlled with Metoprolol. CPAP use. Thyroid nodules. Spinal stenosis. Vitamin D Deficiency, Iron Deficiency Anemia, low potassium with HCTZ on potassium now. Migraines. Bruises easily. Oxygen at 2-3 liters at hs and PRN. POTS syndrome. Mild sliding hiatal hernia. Bronchietasis. History of Any Multi-Drug Resistant Organisms: None Reported Date of last positivie culture/infection: 03/2018 MDRO Source:: Lung Past Surgical History: Appendectomy, Back Surgery, Bariatric Surgery, Section, Cholecystectomy, Heart Catheterization, Hysterectomy, Orthopedic Surgery, Tonsillectomy Additional Past Surgical History / Comment(s): Gastric sleeve with hiatal hernia repair, spinal fusion/decompression L4-L5 and S1, bilateral shoulder arthroscopies, 3 laparotomies due to pain/ovarian cyst/adhesions, D&Cs X2 after miscarriages, lipoma removed from left side of back, colonoscopy, EGD's, tracheal stent removal X3, trachealbronchoplasty, tracheal resection 11/17. Past Anesthesia/Blood Transfusion Reactions: Previous Problems w/ Anesthesia, Motion Sickness, Postoperative Nausea & Vomiting (PONV) Additional Past Anesthesia/Blood Transfusion Reaction / Comment(s): Difficult IV start, difficult intubation("weak airway") - states they use airway band, states occasional memory issues after anesthesia. Past Psychological History: Anxiety, Depression Smoking Status: Never smoker Past Alcohol Use History: None Reported Past Drug Use History: None Reported - Past Family History Father Family Medical History: Cancer Additional Family Medical History / Comment(s): . Mother Family Medical History: Cancer Additional Family Medical History / Comment(s): . Brother(s) Family Medical History: Pulmonary Embolus Medications and Allergies Home Medications Medication Instructions Recorded Confirmed Type Montelukast [Singulair] 10 mg PO DAILY 04/16/17 07/19/22 History Vitamin B Complex 1 cap PO DAILY 02/15/18 07/19/22 History L.acidoph,Paracasei, B.lactis 1 cap PO DAILY 08/23/18 07/19/22 History [Probiotic] Multivitamins, Thera [Multivitamin 1 tab PO DAILY 08/23/18 07/19/22 History (formulary)] calcium polycarbophiL [Fibercon] 625 mg PO DAILY 09/26/18 07/19/22 History Omeprazole 40 mg PO BID 08/19/19 07/19/22 History Ipratropium-Albuterol Nebulize 3 ml INHALATION RT-BID PRN 05/10/20 07/19/22 History [Duoneb 0.5 mg-3 mg/3 ml Soln] Acetaminophen Tab [Tylenol] 1,000 mg PO Q6H PRN 03/06/21 07/19/22 History Albuterol Sulfate [Proair Hfa] 1 - 2 puff INHALATION RT-QID PRN 03/06/21 07/19/22 History Atorvastatin [Lipitor] 20 mg PO HS 03/06/21 07/19/22 History Digestive Enzymes 1 cap PO DAILY 03/06/21 07/19/22 History Fluticasone Nasal [place] [Flonase 2 spr EA NOSTRIL QAM PRN 03/06/21 07/19/22 History Nasal [place]] Triamterene-Hctz 37.5-25Mg 1 tab PO DAILY 03/06/21 07/19/22 History [Maxzide 37.5-25] Budesonide/Glycopyr/Formoterol 2 puff INHALATION RT-BID 01/24/22 07/19/22 History [Breztri Aerosphere Inhaler] Docusate [Colace] 100 mg PO BID PRN 01/24/22 07/19/22 History Gabapentin [Neurontin] 100 mg PO TID 01/24/22 07/19/22 History Potassium Chloride ER [K-Dur 20] 20 meq PO DAILY PRN 01/24/22 07/19/22 History Furosemide [Lasix] 20 mg PO DAILY PRN 02/15/22 07/19/22 History Cholecalciferol [Vitamin D3 (125 125 mcg PO DAILY 07/19/22 07/19/22 History Mcg = 5000 Iu)] Estrogens, Conjugated Cream 1 applicator VAGINAL DIRECTED 07/19/22 07/19/22 History [Premarin Vaginal Cream] Metoprolol Succinate (ER) [Toprol 50 mg PO DAILY 07/19/22 07/19/22 History Xl] Mupirocin 2% Oint [Bactroban 2% 1 applic TOPICAL BID 07/19/22 07/19/22 History Oint] tiZANidine [Zanaflex] 4 mg PO Q12HR PRN 07/19/22 07/19/22 History traMADol HCl [Ultram] 50 mg PO Q6HR PRN 07/19/22 07/19/22 History Allergies Allergy/AdvReac Type Severity Reaction Status Date / Time cat dander Allergy eye Verified 07/19/22 15:51 swelling ciprofloxacin [From Cipro] Allergy Itching Verified 07/19/22 15:51 gluten Allergy Abdominal Verified 07/19/22 15:51 Pain/HEADACHES, constipation NSAIDS (Non-Steroidal AdvReac Abdominal Verified 07/19/22 15:51 Anti-Inflamma Pain shellfish derived [Shellfish] AdvReac Vomiting Verified 07/19/22 15:51 Physical Exam Vitals: Vital Signs Temp Pulse Pulse Resp BP BP Pulse Ox 07/20/22 09:11 68 07/20/22 08:55 68 07/20/22 07:00 97.6 F 69 17 99/63 93 L 07/20/22 02:00 69 16 07/20/22 01:47 97.7 F 69 16 103/58 97 07/19/22 21:48 76 07/19/22 21:34 72 07/19/22 20:00 89 16 07/19/22 19:33 97.7 F 89 16 106/66 97 07/19/22 17:28 97.8 F 78 18 108/67 92 L 07/19/22 17:00 97.8 F 81 18 108/67 92 L 07/19/22 12:56 97.8 F 76 20 142/85 97 Intake and Output 07/19/22 07/20/22 07/20/22 22:59 06:59 14:59 Other: Voiding Method Toilet # Voids 1 2 Weight 98.883 kg Results 07/19/22 14:08 07/19/22 14:08 Cardiac Enzymes 07/19/22 07/19/22 07/19/22 Range/Units 14:08 14:08 16:40 AST 39 H (14-36) U/L Troponin I <0.012 <0.012 (0.000-0.034) ng/mL 07/19/22 Range/Units 19:51 AST (14-36) U/L Troponin I <0.012 (0.000-0.034) ng/mL Coagulation 07/19/22 Range/Units 14:08 PT 9.7 (9.0-12.0) sec APTT 25.5 (22.0-30.0) sec Lipids 07/19/22 Range/Units 14:08 Triglycerides 88.90 (0.00-149.00) mg/dL Cholesterol 175.00 (0.00-200.00) mg/dL HDL Cholesterol 76.30 H (40.00-60.00) mg/dL Cholesterol/HDL Ratio 2.29 Ratio CBC 07/19/22 Range/Units 14:08 WBC 10.3 (3.8-10.6) k/uL RBC 4.78 (3.80-5.40) m/uL Hgb 12.9 (11.4-16.0) gm/dL Hct 38.9 (34.0-46.0) % Plt Count 232 (150-450) k/uL Comprehensive Metabolic Panel 07/19/22 Range/Units 14:08 Sodium 141 (137-145) mmol/L Potassium 3.9 (3.5-5.1) mmol/L Chloride 102 (98-107) mmol/L Carbon Dioxide 27 (22-30) mmol/L BUN 18 H (7-17) mg/dL Creatinine 0.68 (0.52-1.04) mg/dL Glucose 79 (74-99) mg/dL Calcium 9.6 (8.4-10.2) mg/dL AST 39 H (14-36) U/L ALT 26 (4-34) U/L Alkaline Phosphatase 81 (38-126) U/L Total Protein 8.0 (6.3-8.2) g/dL Albumin 4.8 (3.5-5.0) g/dL Current Medications Generic Name Dose Route Start Last Admin Trade Name Freq PRN Reason Stop Dose Admin Acetaminophen 650 mg 07/19/22 22:06 07/19/22 23:03 Acetaminophen Tab 325 Mg Tab PO 650 mg Q6HR PRN Administration Fever and/ or Pain Albuterol/Ipratropium 3 ml 07/19/22 20:00 07/20/22 08:50 Ipratropium-Albuterol 3 Ml Neb INHALATION 3 ml RT-QID MYLES Administration Albuterol/Ipratropium 3 ml 07/19/22 18:28 Ipratropium-Albuterol 3 Ml Neb INHALATION RT-Q2H PRN Shortness Of Breath Or Wheezing Atorvastatin Calcium 20 mg 07/19/22 21:00 07/19/22 20:01 Atorvastatin 20 Mg Tab PO 20 mg HS MYLES Administration Budesonide/Formoterol Fumarate 2 puff 07/19/22 20:00 07/20/22 08:50 Symbicort 160-4.5 Mcg Inhaler INHALATION 2 puff RT-BID MYLES Administration Calcium Polycarbophil 625 mg 07/20/22 09:00 07/20/22 09:10 Calcium Polycarbophil 625 Mg Tab PO 625 mg DAILY MYLES Administration Cholecalciferol 125 mcg 07/20/22 09:00 07/20/22 09:10 Cholecalciferol 125 Mcg (5000 Iu) Tablet PO 125 mcg DAILY MYLES Administration Fluticasone Propionate 2 spray 07/19/22 18:27 Fluticasone 50mcg/[place] Nasal 16gm EA NOSTRIL QAM PRN Allergy Symptoms Furosemide 20 mg 07/19/22 18:27 Furosemide 20 Mg Tab PO DAILY PRN Edema Gabapentin 100 mg 07/19/22 22:00 07/20/22 09:10 Gabapentin 100 Mg Cap PO 100 mg TID MYLES Administration Heparin Sodium (Porcine) 5,000 unit 07/20/22 00:00 07/20/22 09:07 Heparin Sodium,Porcine/Pf 5,000 Unit/0.5 Ml Syringe SQ Not Given Q8HR MYLES Metoprolol Succinate 50 mg 07/20/22 09:00 07/20/22 09:10 Metoprolol Succinate (Er) 50 Mg Tab.Er.24h PO 50 mg DAILY MYLES Administration Montelukast Sodium 10 mg 07/20/22 09:00 07/20/22 09:10 Montelukast 10 Mg Tab PO 10 mg DAILY MYLES Administration Nitroglycerin 0.4 mg 07/19/22 15:08 Nitroglycerin Sl Tabs 0.4 Mg Tab SUBLINGUAL Q5M PRN Chest Pain Pantoprazole Sodium 40 mg 07/19/22 21:00 07/20/22 06:18 Pantoprazole 40 Mg Tablet PO 40 mg AC-BID MYLES Administration Triamterene/Hydrochlorothiazide 1 each 07/20/22 09:00 07/20/22 09:06 Triamterene-Hctz 37.5-25mg 1 Each Tab PO Not Given DAILY MYLES Intake and Output 07/19/22 07/20/22 07/20/22 22:59 06:59 14:59 Other: Voiding Method Toilet # Voids 1 2 Weight 98.883 kg 07/19/22 14:08 07/19/22 14:08
[2022-07-20 12:15] VITALS: PULSE 76
--- NOTE | 2022-07-20 14:10 | P.DS ---
Providers Date of admission: 07/19/22 15:22 Expected date of discharge: 07/20/22 Attending physician: Nito Menchaca MD Consults: 07/19/22 15:08 Consult Physician Urgent Consulting Provider: [facility] Consult Reason/Comments: Chest pain Do you want consulting provider notified?: Yes 07/19/22 19:02 Consult Physician Routine Consulting Provider: Robert Quiñones Consult Reason/Comments: Hx tracheobronchial malacia with tracheal resection w/ C/C of CP & SOB Do you want consulting provider notified?: Yes Primary care physician: Joseph Kaba MD Hospital Course: Discharge Diagnosis: Chest pain, acute coronary event ruled out. 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 Patient presented to the emergency department with a chief complaint of chest pain and exertional shortness of breath. She underwent full evaluation in the emergency department. Labs completed and reviewed. CBC, coagulation profile, and CMP were completed showing no significant abnormalities. Troponin negative at less than 0.012. EKG was completed showing normal sinus rhythm at 70 bpm with T-wave inversion in inferior leads 3 and aVF upon personal review and interpretation. Chest x-ray completed and reviewed, lungs appear clear and radiology report stating negative for acute cardiopulmonary process. Discussed patient complains, clinical exam findings, laboratory analysis, and imaging results in detail with the ED physician. Patient was admitted under our services to observation unit with telemetry. Consults were placed to both cardiology and pulmonology. Patient was evaluated by pulmonary stating patient has stable moderate to severe persistent bronchial asthma recommending patient to continue with [place] inhaler along with Singulair, and as needed DuoNeb treatments or pro-air inhaler. Troponins were trended overnight all negative at less than 0.0123 draws. D-dimer completed negative findings is 0.23. Vital signs unremarkable. Patient evaluated by cardiology ruling out acute coronary event and recommended for patient to have echocardiogram completed and follow-up in their office for results. Patient is medically stable at this time, patient cleared for discharge home and to follow up outpatient with PCP, setter molding and coremaking machines, and business and services instructor. Physical exam: Vital signs reviewed and stable. General: Nontoxic, no distress and appears stated age. Obese Derm: Skin warm and dry, normal coloration for ethnicity. Head: Atraumatic, normocephalic and symmetric. Eyes: EOMs intact, no lid lag, and anicteric sclera Mouth: no lip lesions, mucus membranes moist Cardiovascular: regular rate and rhythm with normal S1S2, no murmur, positive posterior tibial pulses bilaterally, and cap refill < 2 seconds. Lungs: Respirations even, regular, and unlabored on room air. Lungs diminished, no rhonchi, no rales, no wheezing, and no accessory muscle usage. Abdominal: soft, nontender to palpation, no guarding, no appreciable organomegaly Ext: ROM intact. No gross muscle atrophy, no edema, no contractures Neuro: Speech clear, face symmetrical and CN II-XII grossly intact with no noted focal neuro deficits Psych: Alert and oriented to person, place, time, and situation. Appropriate and pleasant affect. A total of 33 minutes of time were spent preparing this complex discharge summary. Pt was discharged on 07/20/22 at 2:09 PM Patient was seen independently by Nurse Practitioner. This document was prepared using [email or web address] dictation software. Please allow for errors in brand analyst while rare they do occur. Patient Condition at Discharge: Stable Plan - Discharge Summary Discharge Rx Participant: Yes New Discharge Prescriptions: Continue Montelukast [Singulair] 10 mg PO DAILY Vitamin B Complex 1 cap PO DAILY Multivitamins, Thera [Multivitamin (formulary)] 1 tab PO DAILY L.acidoph,Paracasei, B.lactis [Probiotic] 1 cap PO DAILY calcium polycarbophiL [Fibercon] 625 mg PO DAILY Omeprazole 40 mg PO BID Ipratropium-Albuterol Nebulize [Duoneb 0.5 mg-3 mg/3 ml Soln] 3 ml INHALATION RT-BID PRN PRN Reason: Shortness Of Breath Acetaminophen Tab [Tylenol] 1,000 mg PO Q6H PRN PRN Reason: Fever And/ Or Pain Fluticasone Nasal [place] [Flonase Nasal [place]] 2 spr EA NOSTRIL QAM PRN PRN Reason: Allergy Symptoms Triamterene-Hctz 37.5-25Mg [Maxzide 37.5-25] 1 tab PO DAILY Albuterol Sulfate [Proair Hfa] 1 - 2 puff INHALATION RT-QID PRN PRN Reason: Shortness Of Breath Potassium Chloride ER [K-Dur 20] 20 meq PO DAILY PRN PRN Reason: W/LASIX Docusate [Colace] 100 mg PO BID PRN PRN Reason: Constipation Budesonide/Glycopyr/Formoterol [Breztri Aerosphere Inhaler] 2 puff INHALATION RT-BID Furosemide [Lasix] 20 mg PO DAILY PRN PRN Reason: Edema Metoprolol Succinate (ER) [Toprol XL] 50 mg PO DAILY Estrogens, Conjugated Cream [Premarin Vaginal Cream] 1 applicator VAGINAL DIRECTED Cholecalciferol [Vitamin D3 (125 Mcg = 5000 Iu)] 125 mcg PO DAILY traMADol HCl [Ultram] 50 mg PO Q6HR PRN PRN Reason: Pain tiZANidine [Zanaflex] 4 mg PO Q12HR PRN PRN Reason: Muscle Pain Digestive Enzymes 1 cap PO DAILY Atorvastatin [Lipitor] 20 mg PO HS Gabapentin [Neurontin] 100 mg PO TID Mupirocin 2% Oint [Bactroban 2% Oint] 1 applic TOPICAL BID Discharge Medication List Montelukast [Singulair] 10 mg PO DAILY 04/16/17 [History] Vitamin B Complex 1 cap PO DAILY 02/15/18 [History] L.acidoph,Paracasei, B.lactis [Probiotic] 1 cap PO DAILY 08/23/18 [History] Multivitamins, Thera [Multivitamin (formulary)] 1 tab PO DAILY 08/23/18 [History] calcium polycarbophiL [Fibercon] 625 mg PO DAILY 09/26/18 [History] Omeprazole 40 mg PO BID 08/19/19 [History] Ipratropium-Albuterol Nebulize [Duoneb 0.5 mg-3 mg/3 ml Soln] 3 ml INHALATION RT-BID PRN 05/10/20 [History] Acetaminophen Tab [Tylenol] 1,000 mg PO Q6H PRN 03/06/21 [History] Albuterol Sulfate [Proair Hfa] 1 - 2 puff INHALATION RT-QID PRN 03/06/21 [History] Atorvastatin [Lipitor] 20 mg PO HS 03/06/21 [History] Digestive Enzymes 1 cap PO DAILY 03/06/21 [History] Fluticasone Nasal [place] [Flonase Nasal [place]] 2 spr EA NOSTRIL QAM PRN 03/06/21 [History] Triamterene-Hctz 37.5-25Mg [Maxzide 37.5-25] 1 tab PO DAILY 03/06/21 [History] Budesonide/Glycopyr/Formoterol [Breztri Aerosphere Inhaler] 2 puff INHALATION RT-BID 01/24/22 [History] Docusate [Colace] 100 mg PO BID PRN 01/24/22 [History] Gabapentin [Neurontin] 100 mg PO TID 01/24/22 [History] Potassium Chloride ER [K-Dur 20] 20 meq PO DAILY PRN 01/24/22 [History] Furosemide [Lasix] 20 mg PO DAILY PRN 02/15/22 [History] Cholecalciferol [Vitamin D3 (125 Mcg = 5000 Iu)] 125 mcg PO DAILY 07/19/22 [History] Estrogens, Conjugated Cream [Premarin Vaginal Cream] 1 applicator VAGINAL DIRECTED 07/19/22 [History] Metoprolol Succinate (ER) [Toprol XL] 50 mg PO DAILY 07/19/22 [History] Mupirocin 2% Oint [Bactroban 2% Oint] 1 applic TOPICAL BID 07/19/22 [History] tiZANidine [Zanaflex] 4 mg PO Q12HR PRN 07/19/22 [History] traMADol HCl [Ultram] 50 mg PO Q6HR PRN 07/19/22 [History] Follow up Appointment(s)/Referral(s): Jignesh Singh MD [Family Provider] - 08/02/22 2:15 pm Joseph Kaba MD [Primary Care Provider] - 1-2 days Patient Instructions/Handouts: Chest Pain (DC) Activity/Diet/Wound Care/Special Instructions: Activity: As tolerated. Take breaks as needed. Diet: Heart healthy and carb consistent diet. Avoid salts, or foods with hidden salts such as canned or boxed foods and frozen dinners. Extra salt makes your heart work harder and traps the fluid in your body for longer. Special Instructions: Take all of your medications as directed and remember to keep all of your doctor's appointments and follow-up as needed. As cardiology discussed with you, echocardiogram has been completed but results are not available at this time. Recommend outpatient follow-up with your business and services instructor, Dr. Singh to discuss and review these results. Thank you for allowing us to participate in your care, it was truly a pleasure having you for our patient!!! Discharge Disposition: HOME SELF-CARE
[2022-07-20] MEDS: ACETAMINOPHEN TAB 325 MG TAB PO PRN (14:38)
--- NOTE | 2022-07-20 19:01 | CA ---
Transthoracic Echo Report Name: Adilene Carbone Age: 57 Gender: F : 1965 Exam Date: 07/20/2022 09:23 Exam Location: [facility] Ht (in): 60 Wt (lb): 218 Ordering Physician: Jinny Wilkins Attending/Referring Phys: [id number], Claudette Car Dropper Gabriella Grant RDCS Procedure CPT: Indications: LV function Cardiac Hx: Technical Quality: Fair Contrast 1: Total Dose (mL): Contrast 2: Total Dose (mL): MEASUREMENTS (Male / Female) Normal Values 2D ECHO LV Diastolic Diameter PLAX 4.7 cm 4.2 - 5.9 / 3.9 - 5.3 cm LV Systolic Diameter PLAX 2.8 cm IVS Diastolic Thickness 1.0 cm 0.6 - 1.0 / 0.6 - 0.9 cm LVPW Diastolic Thickness 1.0 cm 0.6 - 1.0 / 0.6 - 0.9 cm LV Relative Wall Thickness 0.4 RV Internal Dim ED PLAX 2.8 cm LA Volume 35.0 cm??? 18 - 58 / 22 - 52 cm??? M-MODE Aortic Root Diameter MM 2.4 cm LA Systolic Diameter MM 3.3 cm LA Ao Ratio MM 1.4 AV Cusp Separation MM 1.9 cm DOPPLER AV Peak Velocity 137.5 cm/s AV Peak Gradient 7.6 mmHg AV Mean Velocity 96.9 cm/s AV Mean Gradient 4.2 mmHg AV Velocity Time Integral 27.3 cm LVOT Peak Velocity 97.5 cm/s LVOT Peak Gradient 3.8 mmHg LVOT Velocity Time Integral 20.1 cm MV Area PHT 3.7 cm??? Mitral E Point Velocity 79.5 cm/s Mitral A Point Velocity 64.8 cm/s Mitral E to A Ratio 1.2 MV Deceleration Time 205.1 ms MV E' Velocity 9.6 cm/s Mitral E to MV E' Ratio 8.3 TR Peak Velocity 227.1 cm/s TR Peak Gradient 20.6 mmHg Right Ventricular Systolic Press 25.6 mmHg FINDINGS Left Ventricle Mildly increased left ventricular wall thickness. Normal left ventricular systolic function with no obvious regional wall motion abnormalities. Left ventricular ejection fraction is estimated at 55-60%. Left ventricular cavity size normal. Right Ventricle Normal right ventricular size and function. Right ventricular systolic pressure within normal limits. Right Atrium Normal right atrial size. Left Atrium Normal left atrial size. Mitral Valve Structurally normal mitral valve. Trace to mild mitral regurgitation. Aortic Valve No aortic valve stenosis or regurgitation. Tricuspid Valve Structurally normal tricuspid valve. Mild tricuspid regurgitation. Pulmonic Valve Trace pulmonic regurgitation. Pericardium No pericardial effusion. Aorta Normal size aortic root and proximal ascending aorta. CONCLUSIONS Normal LV systolic function with mild LVH Previewed by: Dr. Ameya Frias MD (Electronically Signed) Final Date: 20 Jul 2022 19:00
== END 2022-07-20 15:43 | disposition home or self-care (01) ==
LOC: EC 12:51 → 6NMEDSUR 15:22
PROVIDERS: ADMIT Student in an Organized Health Care Education/Training Program; ATTEND Student in an Organized Health Care Education/Training Program
DX: R07.89 Other chest pain (principal); E78.00 Pure hypercholesterolemia, unspecified; J44.9 Chronic obstructive pulmonary disease, unspecified; E11.9 Type 2 diabetes mellitus without complications; I10 Essential (primary) hypertension; G90.A Postural orthostatic tachycardia syndrome [POTS]; D50.9 Iron deficiency anemia, unspecified; F41.9 Anxiety disorder, unspecified; F32.A Depression, unspecified; I25.10 Atherosclerotic heart disease of native coronary artery without angina pectoris; E03.9 Hypothyroidism, unspecified; K44.9 Diaphragmatic hernia without obstruction or gangrene; E66.01 Morbid (severe) obesity due to excess calories; G47.33 Obstructive sleep apnea (adult) (pediatric); E55.9 Vitamin D deficiency, unspecified; M48.00 Spinal stenosis, site unspecified; M54.9 Dorsalgia, unspecified; G89.29 Other chronic pain; I08.1 Rheumatic disorders of both mitral and tricuspid valves; I37.1 Nonrheumatic pulmonary valve insufficiency; E04.2 Nontoxic multinodular goiter; J39.8 Other specified diseases of upper respiratory tract; Z88.1 Allergy status to other antibiotic agents; Z79.899 Other long term (current) drug therapy; Z90.49 Acquired absence of other specified parts of digestive tract; Z98.84 Bariatric surgery status; Z98.1 Arthrodesis status; Z80.9 Family history of malignant neoplasm, unspecified; Z83.2 Family history of diseases of the blood and blood-forming organs and certain disorders involving the immune mechanism; Z68.41 Body mass index [BMI] 40.0-44.9, adult
CPT/HCPCS: 96372; 96374; 99285; 36415; 94640 ×4; 93005; 93306; 85379; 80061; 80053; 83735; 84484; 85025; 85610; 85730; 71046; G0378 ×2; J2060; J1644

== ENCOUNTER → 2022-08-03 | Outpatient (CLI) | payer BC, MEDICARE ==
[2022-08-03 09:41] VITALS: BP 115/82; PULSE 74; RESP 18; TEMP 98.1
--- NOTE | 2022-08-03 14:29 | P.PAINPG ---
PQRS Measure Charge Sheet Comment: A 57 yr old female with a history of severe and chronic LBP secondary to post laminectomy syndrome presents today for . Pain level is provoked at 8/10 in intensity, constant, localized in the lumbar spine, sharp in character w shooting towards the BLEs. Pain is provoked by lifting. Pain is alleviated with PT x 4 wks which she is currently in, massage therapy x 1 approx 2 mo ago, chiropractic treatments semi monthly x 6 mo, heat, ice, medications, reclining, repositioning and rest. Interventional pain procedures completed include JORGE LUIS C6-7 x1, C7-T1 x1, Caudal JORGE LUIS w Lysis Patient is currently on Zanaflex, Ultram, Neurontin, Tyl Patient denies any side effects of the medication(s), denies excessive d rowsiness or sleepiness, denies suicidal ideation and reports that the current pain medication is helping to control the pain and improve activities of daily living. Patient denies any motor or sensory deficits. Patient denies any fever or night sweats, denies any change in the bowel movements or urination. Physical Examination: -Constitutional: Cooperative. Not in acute distress . - Neurologic: Cranial nerve II to XII intact. No focal neurological deficits. - Psychatric: Alert & oriented x 3. Matching mood & appropriate affect. Judgment and insight intact. - Musculoskeletal: Cervical spine: Muscle bulk/ tone/ strength in the bilateral upper extremities normal Vertebral body tenderness to palpation over Spurling test positive Distraction test positive Facet loading test positive TTP Thoracic spine Muscle bulk / tone/ strength in the bilateral paraspinal muscles normal Vertebral body tender to palpation over Facet loading test positive TTP Lumbar spine: Motor bulk/ tone/ strength lower extremities , thigh and legs : 5/5 Deep tendon reflexes : Normal Knee Jerk. Normal Ankle Jerk . Vertebral body tenderness to palpation over Quach Test positive Lumbar Facet Loading Test positive Straight Leg Raise: positive at 30 degrees right side/ left side Gaenslen's Test positive Sacral spine : Severe tenderness over the Sacroiliac joint: right side / left side Range of motion: Flexion of the lumbar spine <60 degrees Range of motion: Extension of the lumbar spine <20 degrees Gaenslen's Test positive right side / left side Yarely test: positive right side / left side Thigh Thrust Test positive right side / left side Sacral Thrust Test positive right side / left side Assessment and plan: Chronic LBP secondary to post laminectomy syndrome Recommendation of continuation of SCS Trial. Medications unchanged since her recent hospitalization. Risks, benefits of procedure discussed and pt verbalized understanding. Admits to anticoagulant use or medical history of diabetes. Protocol for discontinuation/ continuation of medications rukhsana procedure discussed. Minimal anesthesia provided, if clinically indicated, consisting of Versed and Fentanyl. All questions answered. I have spent less than 30 minutes on patient care today. Dr Quarles was available by phone for the evaluation of this patient. The time was used to review the medical records including relevant urine studies and Prescription history (MAPs), review of the available imaging, evaluation and examination of the patient, coordination of care with the medical staff and if applicable referring physicians, as well as creation of the medical record - Pain Location Bilateral Lower Back Non-Pharmacological Interventions: Chiropractic Treatment, Elevation, Heat, Ice, Inactivity, Massage, Physical Therapy, Position/Reposition, Sitting Pharmacological Interventions: Epidural, PRN Medication, Scheduled Medication, Topical Medication PQRS Narrative: Smoking Status Never smoker Hx Alcohol Use (MH) Yes Home Medications: Ambulatory Orders Montelukast [Singulair] 10 mg PO DAILY 04/16/17 Vitamin B Complex 1 cap PO DAILY 02/15/18 L.acidoph,Paracasei, B.lactis [Probiotic] 1 cap PO DAILY 08/23/18 Multivitamins, Thera [Multivitamin (formulary)] 1 tab PO DAILY 08/23/18 calcium polycarbophiL [Fibercon] 625 mg PO DAILY 09/26/18 Omeprazole 40 mg PO BID 08/19/19 Ipratropium-Albuterol Nebulize [Duoneb 0.5 mg-3 mg/3 ml Soln] 3 ml INHALATION RT-BID PRN 05/10/20 Acetaminophen Tab [Tylenol] 1,000 mg PO Q6H PRN 03/06/21 Albuterol Sulfate [Proair Hfa] 1 - 2 puff INHALATION RT-QID PRN 03/06/21 Atorvastatin [Lipitor] 20 mg PO HS 03/06/21 Digestive Enzymes 1 cap PO DAILY 03/06/21 Fluticasone Nasal [place] [Flonase Nasal [place]] 2 spr EA NOSTRIL QAM PRN 03/06/21 Triamterene-Hctz 37.5-25Mg [Maxzide 37.5-25] 1 tab PO DAILY 03/06/21 Budesonide/Glycopyr/Formoterol [Breztri Aerosphere Inhaler] 2 puff INHALATION RT-BID 01/24/22 Docusate [Colace] 100 mg PO BID PRN 01/24/22 Gabapentin [Neurontin] 100 mg PO TID 01/24/22 Potassium Chloride ER [K-Dur 20] 20 meq PO DAILY PRN 01/24/22 Furosemide [Lasix] 20 mg PO DAILY PRN 02/15/22 Cholecalciferol [Vitamin D3 (125 Mcg = 5000 Iu)] 125 mcg PO DAILY 07/19/22 Estrogens, Conjugated Cream [Premarin Vaginal Cream] 1 applicator VAGINAL DIRECTED 07/19/22 Metoprolol Succinate (ER) [Toprol XL] 50 mg PO DAILY 07/19/22 Mupirocin 2% Oint [Bactroban 2% Oint] 1 applic TOPICAL BID 07/19/22 tiZANidine [Zanaflex] 4 mg PO Q12HR PRN 07/19/22 traMADol HCl [Ultram] 50 mg PO Q6HR PRN 07/19/22 Controlled Substance Measures - Controlled Substance Measures Is patient prescribed a controlled substance at discharge?: No
== END ==
LOC: PNWHC3 08:34
PROVIDERS: ATTEND Specialist
DX: M47.816 Spondylosis without myelopathy or radiculopathy, lumbar region (principal); M96.1 Postlaminectomy syndrome, not elsewhere classified; G89.29 Other chronic pain; Z91.018 Allergy to other foods; Z91.013 Allergy to seafood; Z88.6 Allergy status to analgesic agent; Z88.1 Allergy status to other antibiotic agents; Z91.048 Other nonmedicinal substance allergy status
CPT/HCPCS: 99211

== ENCOUNTER → 2022-09-22 | Day surgery (SDC) | payer BC, MEDICARE ==
[2022-09-19 10:07] VITALS: BMI 41.0
[~2022-09-22] MED LIST changes: +IV FLUID CONTINUATION 1,000 ML IV ONE; -LACTATED RINGERS 1,000 ML IV SCH; +MIDAZOLAM 2 MG/2 ML VIAL ONE; +ROPIVACAINE 5 MG/ML 20 ML AMPULE ONE; +fentaNYL (PF) 50 MCG/ML 2 ML AMP ONE
[2022-09-22 10:50] VITALS: TEMP 97.9
[2022-09-22] MEDS: LACTATED RINGERS 1,000 ML IV SCH ×2 (10:52→11:17)
[2022-09-22 11:04] LABS: Glucose,Whole Blood 103 mg/dL (70-110)
--- NOTE | 2022-09-22 12:47 | FL ---
Fluoroscopy History: TRIAL SPINAL CORD STIMULATOR Trial spinal cord stimulator. 1 min 3 sec fl .[id number] DAP
[2022-09-22 13:14] VITALS: BP 106/72; PULSE 64; RESP 18
--- NOTE | 2022-09-22 14:39 | P.PCN ---
Date of Procedure: 09/22/22 Procedure(s) Performed: PROCEDURES: 1- spinal cord stimulator trial under fluoroscopic guidance X2 lead (Fluoroscopy images stored on file in radiology department ) 2- complex programing of the spinal cord stimulator. PREOPERATIVE DIAGNOSIS: 1-postlaminectomy pain syndrome lumbar area 2-lumbar degenerative disc disease. POSTOPERATIVE DIAGNOSIS: 1-same as preoperative diagnoses. ANESTHESIA: Monitored anesthesia care as per anesthesia department BLOOD LOSS: Minimal. COMPLICATIONS: None. PROCEDURE INDICATIONS: The patient with a history of severe intractable low back pain who failed more conservative treatment measures. Patient had multiple pain interventions procedure and she got short-term benefit from it, patient was a candidate for spinal cord stimulator and she had the psychological testing done and showed that there is no contraindication for the spinal cord stimulator, patient is not interested in having any lumbar surgery PROCEDURE DESCRIPTION: The patient was seen and identified in the preoperative area. Risks, benefits, complications, and alternatives were discussed with the patient. The patient agreed to proceed with the procedure and signed the consent. IV was started.Patient was taken to the operating room and time out was performed. She received 2 gram of IV for prophylactic antibitics before the start of the procedure. The Thoracic and lumbar areas were prepped with Druaprep x2 and draped in the usual sterile fashion. Using sterile gowns and gloves, and after covering the fluoroscopic camera with a sterile drape, the procedure was proceeded on with. The fluoroscopic camera was placed in the AP position, and the T2-T3 interlaminar space was identified and localized in the left paramedian trajectory with ropivacaine 0.5% 5 mL. Under fluoroscopic guidance, a 14 gauge Tuohy ( epimed )epidural needle from the [employer] spinal cord stimulator kit was guided into the interlaminar space. Then using the right oblique fluoroscopy, anterior-posterior fluoroscopy, and ysnk-wh-lfgwnrxaur technique, the epidural space was accessed. The first lead (8 contacts leads from [employer] ) was passed and noted to be in the dorsal portion of the epidural space in the lateral view. Then using anterior-posterior view, the first lead was passed up to the top of T8 vertebra. Subsequently, a second 14 gauge Tuohy epidural ( epimed )needle was inserted just posterior to the first needle and was advanced toward the epidural space in a parallel direction to the first needle. Then using lateral fluoroscopy, anterior-posterior fluoroscopy, and xuyo-wy-iuvuoxuhpg technique, the epidural space was accessed by the second needle into the same interlaminar space as the first needle. Then a second similar lead was passed and noted to be in the dorsal portion of the epidural space in the lateral view. Then using anterior- posterior view, the second lead was passed up to the top of T 9 vertebra, and was left in a parallel position to the first lead. Subsequently, the leads were tested and they gave good stimulation on the low back area and the lower extremity , then after that the needle was removed and both legs secured using 2-0 silk, and then the dressing applied durind the procedure ,we performed complex programing of the spinal cord stimulator ,we changed pulse width ,amplitude and the frequencey of the stimulation and we got good coverage for the painful area ,the parasthesia overlaped the painfull area ,patients was satesfied withe the stimulation ,we got more than 80 % decrease in the pain level COMPLICATIONS: No acute complications. COMMENTS: Each lead used had 8 contacts with a total of 16 contacts used. DISPOSITION / PLANS: The patient was placed in a supine position and transferred to the recovery area in a stable condition for observation. There was no evidence of lower extremity motor or sensory deficit after the procedure. Armida ent was discharged from the recovery room after meeting discharge criteria. Home discharge instructions were given to the patient by the staff. The patient was reexamined prior to discharge Patient will follow up in the pain clinic next week for leads removal.
== END ==
LOC: ORPAIN 10:13
PROVIDERS: ATTEND Specialist
DX: M51.36 Other intervertebral disc degeneration, lumbar region (principal); M96.1 Postlaminectomy syndrome, not elsewhere classified; I10 Essential (primary) hypertension; E78.5 Hyperlipidemia, unspecified; Z88.1 Allergy status to other antibiotic agents; J44.9 Chronic obstructive pulmonary disease, unspecified; G47.33 Obstructive sleep apnea (adult) (pediatric); E11.9 Type 2 diabetes mellitus without complications; K21.9 Gastro-esophageal reflux disease without esophagitis; Z79.899 Other long term (current) drug therapy
CPT/HCPCS: 99152; 99153 ×2; 63650; J2250; J3010; J2795; C1897; C1883

== ENCOUNTER → 2022-09-29 | Outpatient (CLI) | payer BC, MEDICARE ==
--- NOTE | 2022-09-29 13:21 | P.PN ---
Progress Note - Text Progress Note Date: 09/29/22 This is follow up visit for this 57 years old female with a history of severe and chronic low back pain, she was diagnosed with postlaminectomy pain syndrome, last week we have done spina cord stimulator trial, and patient here today to have the leads removed, and to discuss with her the results of the spine cord stimulator trial, patient reported that she does not more than 85% improvement in her pain level, and she reported that her ability to function and ambulate improved significantly, she is very satisfied with the result of the trial , because her functionality improved and her pain improved, and she wanted to proceed with the permanent implant, patient is scheduled to have permanent implant of spinal cord stimulator leads [id number] , and also implantation of spinal cord stimulator generator CPT code 86908, and it will be scheduled in the near future, they under sterile technique, I removed the trial leads 2 and the tip was intact, Band-Aid applied, the was no sign of infection no erythema and no discharge,the patient will follow up in the pain clinic day of the permanent implant
== END ==
LOC: PNWHC3 08:24
PROVIDERS: ATTEND Anesthesiology
DX: M96.1 Postlaminectomy syndrome, not elsewhere classified (principal); G89.29 Other chronic pain; M54.50 Low back pain, unspecified; Z88.1 Allergy status to other antibiotic agents; Z88.6 Allergy status to analgesic agent; Z91.013 Allergy to seafood; Z91.09 Other allergy status, other than to drugs and biological substances; Z91.018 Allergy to other foods
CPT/HCPCS: 99211

== ENCOUNTER 2022-11-03 11:01 | Day surgery (SDC) | payer BC, MEDICARE ==
[2022-11-02 08:43] VITALS: BMI 41.3
[~2022-11-03 11:01] MED LIST changes: +DEXAMETHASONE SOD PHOSPHATE 4 MG/ML 1 ML VIAL IV ONE; +HYDROmorphone 0.5 MG/0.5 ML SYRINGE IVP PRN; -IV FLUID CONTINUATION 1,000 ML IV ONE; +LACTATED RINGERS 1,000 ML IV SCH; -LIDOCAINE 1% (10MG/ML) FOR IV START INTRADERMA PRN; +MIDAZOLAM 2 MG/2 ML VIAL IV PRN; -MIDAZOLAM 2 MG/2 ML VIAL ONE; +ONDANSETRON 4 MG/2 ML VIAL IVP ONE; +Pre Op ABX Message 1 EACH MISC MISCELLANE ONE; -ROPIVACAINE 5 MG/ML 20 ML AMPULE ONE; +SCOPOLAMINE 1 MG/72 HR PATCH TRANSDERM ONE; -fentaNYL (PF) 50 MCG/ML 2 ML AMP ONE
[2022-11-03] MEDS ORDERED: LACTATED RINGERS 1,000 ML IV SCH (11:16)
[2022-11-03 11:52] LABS: Glucose,Whole Blood 96 mg/dL (70-110)
[2022-11-03] MEDS ORDERED: ONDANSETRON 4 MG/2 ML VIAL IVP ONE ×2 (11:54→17:05)
[2022-11-03] MEDS ORDERED: ceFAZolin 1,000 MG VIAL ONE (13:25)
[2022-11-03] MEDS ORDERED: KETAMINE 10 MG/ML 20 ML VIAL ONE (13:25)
[2022-11-03] MEDS ORDERED: PROPOFOL 10 MG/ML 20 ML VIAL IV ONE (13:25)
[2022-11-03] MEDS ORDERED: MIDAZOLAM 2 MG/2 ML VIAL ONE (13:25)
[2022-11-03] MEDS ORDERED: HYDROmorphone (PF) 1 MG/ML ONE (13:25)
[2022-11-03] MEDS ORDERED: SODIUM CHLORIDE 0.9% 100 ML BAG ONE (13:25)
[2022-11-03] MEDS ORDERED: fentaNYL (PF) 50 MCG/ML 2 ML AMP ONE (13:25)
[2022-11-03] MEDS ORDERED: SODIUM CHLORIDE 0.9% 50 ML with ceFAZolin 2,000 MG IV ONE ×4 (13:40)
[2022-11-03] MEDS ORDERED: LIDOCAINE 0.5% (PF) 5 MG/ML (50 ML SDV) SQ ONE ×2 (13:45)
[2022-11-03] MEDS ORDERED: LACTATED RINGERS 1,000 ML IV ONE ×2 (14:50→17:00)
[2022-11-03] MEDS ORDERED: HYDROcodone/APAP 10-325MG 1 EACH TAB ONE (16:27)
[2022-11-03] MEDS ORDERED: HYDROcodone/APAP 10-325MG 1 EACH TAB PO ONE (16:29)
--- NOTE | 2022-11-03 16:29 | P.PCN ---
Date of Procedure: 11/03/22 Procedure(s) Performed: PROCEDURES: 1-spinal cord stimulator permanent leads implant under fluoroscopic guidance X2 leads . (Fluoroscopy images stored on file in radiology department ) CPT code 49982 x2 2-implantation of spinal cord stimulator generator Cpt code 11061 3-lumbar epidural blood patch PREOPERATIVE DIAGNOSIS: 1-failed back surgery syndrome lumbar area. 2-lumbar degenerative disc disease 3- POSTOPERATIVE DIAGNOSIS: 1-failed back surgery syndrome lumbar area. 2-lumbar degenerative disc disease. 3-accidental dural puncture during the procedure the 14-gauge Touhy needle ANESTHESIA: monitered anesthesia care as per anesthesia department, and local anesthesia with lidocaine 1 %% percent 25 ML for skin and subcu infiltration. BLOOD LOSS: 20 ml COMPLICATIONS: None. PROCEDURE INDICATIONS: The patient with a history of severe intractable , chronic low back pain with radiation to the lower extremities bilateraly who failed more conservative treatment measures. And she failed all interventional pain management, we discussed with the patient in the clinic the option of doing spinal cord stimulator and she was very interested risk and benefits of the procedure was discussed with the patient and she agreed with proceeding, and patient was evaluated by psychologist, and there was no contraindication to proceed with a spinal cord stimulator, patient already had successful spinal cord stimulator trial done above months ago and she is here today to have permanent implant. PROCEDURE DESCRIPTION: The patient was seen and identified in the preoperative area. Risks, benefits, complications, and alternatives were discussed with the patient. The patient agreed to proceed with the procedure and signed the consent. IV was started.Patient was taken to the operating room and time out was performed. The Thoracic and lumbar areas were prepped with Druaprep x2 and draped in the [facility] sterile fashion. Using sterile gowns and gloves, and after covering the fluoroscopic camera with a sterile drape, the procedure was proceeded on with. The fluoroscopic camera was placed in the AP position, and the L1-2 interlaminar space was identified and localized in the left paramedian trajectory with 1% lidocaine. Under fluoroscopic guidance, a 14 gauge [facility] epid[facility] spinal cord stimulator kit was guided into the interlaminar space. Then using the right oblique fluoroscopy, anterior-posterior fluoroscopy, and ixkj-dg-jcsbxrulpt technique, the epidural space was accessed. The first lead (8 contacts leads from [employer] ) was passed and noted to be in the dorsal portion of the epidural space in the lateral view. Then using anterior-posterior view, the first lead was passed up to the top of T9 vertebra. And during placement of the second Touhy needle there was positive cerebrospinal fluid for this reason decision was made to do prophylactic blood patch because the dura was punctured with the 14- gauge needle which means that most likely she is can have severe postdural puncture headache Subsequently, a second 14 gauge Tuohy epidural needle was inserted just posterior to the first needle and was advanced toward the epidural space in a parallel direction to the first needle. Then using lateral fluoroscopy, anterior-posterior fluoroscopy, and gjrs-hg-srhpaguuca technique, the epidural space was accessed by the second needle into the same interlaminar space as the first needle. Then a second similar lead was passed and noted to be in the dorsa l portion of the epidural space in the lateral view. Then using anterior- posterior view, the second lead was passed up to the top of [id number], and was right in a parallel position to the first lead. Subsequently, the leads were tested and they gave good stimulation on the low back area and the lower extremity bilaterally. Then incisions done in the spinal area upper lumbar and I did the dissection, repeat pockets for the lead, and then after that I created a pocket on the left side of the flank area to create the pocket for the generator, then the generator connected to the leads, and the generator, and under the skin and placed in the pocket, adequate hemostasis obtained, and then the incision closed using 20 Vicryl, 30 Vicryls, for the skin, she will use antibiotic Keflex 500 mg every 6 hours for 1 week and also she will use [place] 7.5/325 nightly 8 hours when necessary for pain, patient will follow up in the pain clinic next week Procedure note for epidural blood patch= prophylactic blood patch was done because we have positive cerebrospinal fluid what I was using the second 14- gauge Touhy needle, and because the cerebrospinal fluid leak from the needle was copious, this reason I reviewed to do prophylactic epidural blood patch, because, patient age is 57 years old and the dural puncture was with a 14-gauge needle, I reviewed to proceed with the prophylactic blood patch the right radial area prepped with DuraPrep 3, and under strict sterile technique using 20-gauge needle , sterile blood was removed from the right radial artery(patient is very difficult IV access ) then after that 18 ML of sterile blood taken to sterile technique injected the epidural space, at the L2-3 level, (using 18-gauge Lenin needle the epidural space at L2-3 was accessed under fluoroscopy guidance, needle placement confirmed with AP and lateral view , using loss of resistance technique to air, was able to identify and epidural space at the L2-3 level ) then 18 ML of sterile blood was injected the epidural space, then after that the dressing applied, patient taken to recovery room in stable condition.
[2022-11-03 16:44] VITALS: TEMP 97
[2022-11-03 17:05] LABS: Glucose,Whole Blood 95 mg/dL (70-110)
[2022-11-03] MEDS ORDERED: SCOPOLAMINE 1 MG/72 HR PATCH TRANSDERM ONE (17:06)
[2022-11-03] MEDS ORDERED: droPERidol 5 MG/2 ML VIAL IVP ONE (18:24)
[2022-11-03 19:17] VITALS: BP 117/55; PULSE 81; RESP 15
--- NOTE | 2022-11-03 19:32 | FL ---
Intraoperative/procedural fluoroscopic services were provided for spinal cord stimulator insertion. T otal fluoroscopy time is 5 minutes 43 seconds with a total of 5 submitted images to PACS. Total DAP 3 1.114 Gycm2. Please see the operative note for further details.
== END 2022-11-03 19:31 | disposition home or self-care (01) ==
LOC: OR 11:01
PROVIDERS: ATTEND Specialist
DX: M96.1 Postlaminectomy syndrome, not elsewhere classified (principal); M51.36 Other intervertebral disc degeneration, lumbar region; I10 Essential (primary) hypertension; I25.10 Atherosclerotic heart disease of native coronary artery without angina pectoris; E78.5 Hyperlipidemia, unspecified; J44.9 Chronic obstructive pulmonary disease, unspecified; E11.9 Type 2 diabetes mellitus without complications; E07.9 Disorder of thyroid, unspecified; M19.90 Unspecified osteoarthritis, unspecified site; E03.9 Hypothyroidism, unspecified; Z79.891 Long term (current) use of opiate analgesic; Z79.890 Hormone replacement therapy; Z79.51 Long term (current) use of inhaled steroids; Z79.899 Other long term (current) drug therapy; Z88.1 Allergy status to other antibiotic agents; Z88.6 Allergy status to analgesic agent; Z88.8 Allergy status to other drugs, medicaments and biological substances
CPT/HCPCS: 62273; 63650; 63685; C1778; C1767; J2250; J2405; J0690; J2001; J3010; J1170; J2704; J1790

== ENCOUNTER → 2022-12-07 | Outpatient (CLI) | payer BC, MEDICARE ==
[2022-12-07 12:33] VITALS: BP 123/82; PULSE 81; RESP 16; TEMP 98.5
--- NOTE | 2022-12-07 13:59 | XR ---
EXAMINATION TYPE: XR thoracic spine 3 views DATE OF EXAM: 12/07/2022 COMPARISON: 05/04/2022 HISTORY: 57-year-old female M51.34 OTHER INTERVERTEBRAL DISC DEGENERATION, THORACIC YUNIER TECHNIQUE: 3 views FINDINGS: 12 rib bearing thoracic vertebral bodies. Spinal stimulator raise extending to the lower thoracic spi nal canal. All pedicles are visualized. There is mild to moderate degenerative disc disease in the mi d thoracic spine and mild in the lower thoracic spine. Limited assessment of the upper thoracic verte bral bodies due to overlying shoulders. Mid and lower thoracic vertebral body height and alignment is maintained. IMPRESSION: 1. Limited assessment of vertebral body height and alignment in the upper third thoracic spine due to overlying shoulders. 2. There is mild to moderate degenerative disc disease mid to lower thoracic spine. 3. Alignment and vertebral body heights in the mid and lower thoracic spine is maintained.
--- NOTE | 2022-12-07 14:40 | P.PAINPG ---
PQRS Measure Charge Sheet Comment: A 57 yr old female with a history of severe and chronic LBP secondary to post laminectomy syndrome presents today for mid back evaluation s/p SCS placement. Pain level is provoked at 8/10 in intensity, constant, localized in the lumbar spine, sharp in character w shooting towards the BLEs. Pain is provoked by over activity. Pain is alleviated with PT x 6 wks in Sep 2022, massage therapy x 1 approx 2 mo ago, chiropractic treatments semi monthly x 6 mo, heat, ice, medications, reclining, repositioning and rest. Pt also complained of stitch in her lumbar spine that getting hooked on her clothing and was itching. Interventional pain procedures completed include JORGE LUIS C6-7 x1, C7-T1 x1, Caudal JORGE LUIS w Lysis, SCS Patient is currently on Zanaflex, Ultram, Neurontin, Tyl Patient denies any side effects of the medication(s), denies excessive drowsiness or sleepiness, denies suicidal ideation and reports that the current pain medication is helping to control the pain and improve activities of daily living. Patient denies any motor or sensory deficits. Patient denies any fever or night sweats, denies any change in the bowel movements or urination. Physical Examination: -Constitutional: Cooperative. Not in acute distress . - Neurologic: Cranial nerve II to XII intact. No focal neurological deficits. - Psychatric: Alert & oriented x 3. Matching mood & appropriate affect. Judgment and insight intact. - Musculoskeletal: Cervical spine: Muscle bulk/ tone/ strength in the bilateral upper extremities normal Vertebral body tenderness to palpation over Spurling test positive Distraction test positive Facet loading test positive TTP Thoracic spine Muscle bulk / tone/ strength in the bilateral paraspinal muscles normal Vertebral body tender to palpation over T4-T9 1 partial stitch protrusion Facet loading test positive TTP Lumbar spine: Motor bulk/ tone/ strength lower extremities , thigh and legs : 5/5 Deep tendon reflexes : Normal Knee Jerk. Normal Ankle Jerk . Vertebral body tenderness to palpation over Quach Test positive Lumbar Facet Loading Test positive Straight Leg Raise: positive at 30 degrees right side/ left side Gaenslen's Test positive Sacral spine : Severe tenderness over the Sacroiliac joint: right side / left side Range of motion: Flexion of the lumbar spine <60 degrees Range of motion: Extension of the lumbar spine <20 degrees Gaenslen's Test positive right side / left side Yarely test: positive right side / left side Thigh Thrust Test positive right side / left side Sacral Thrust Test positive right side / left side Assessment and plan: Chronic mid back and LBP secondary to post laminectomy syndrome Recommendation of x ray thoracic spine M51.34. In office stitch removal. Follow up w Dr Quarles for re evaluation. All questions answered. I have spent less than 30 minutes on patient care today. Dr Quarles was available by phone for the evaluation of this patient. The time was used to review the medical records including relevant urine studies and Prescription history (MAPs), review of the available imaging, evaluation and examination of the patient, coordination of care with the medical staff and if applicable referring physicians, as well as creation of the medical record PQRS Narrative: Smoking Status Never smoker Hx Alcohol Use (MH) Yes Home Medications: Ambulatory Orders Montelukast [Singulair] 10 mg PO DAILY 04/16/17 Vitamin B Complex 1 cap PO DAILY 02/15/18 L.acidoph,Paracasei, B.lactis [Probiotic] 1 cap PO DAILY 08/23/18 Multivitamins, Thera [Multivitamin (formulary)] 1 tab PO DAILY 08/23/18 calcium polycarbophiL [Fibercon] 625 mg PO DAILY 09/26/18 Omeprazole 40 mg PO BID 08/19/19 Ipratropium-Albuterol Nebulize [Duoneb 0.5 mg-3 mg/3 ml Soln] 3 ml INHALATION RT-BID PRN 05/10/20 Acetaminophen Tab [Tylenol] 1,000 mg PO Q6H PRN 03/06/21 Albuterol Sulfate [Proair Hfa] 1 - 2 puff INHALATION RT-QID PRN 03/06/21 Atorvastatin [Lipitor] 20 mg PO HS 03/06/21 Digestive Enzymes 1 cap PO DAILY 03/06/21 Fluticasone Nasal [place] [Flonase Nasal [place]] 2 spr EA NOSTRIL QAM PRN 03/06/21 Triamterene-Hctz 37.5-25Mg [Maxzide 37.5-25] 1 tab PO DAILY 03/06/21 Docusate [Colace] 100 mg PO BID PRN 01/24/22 Gabapentin [Neurontin] 100 mg PO TID 01/24/22 Potassium Chloride ER [K-Dur 20] 20 meq PO DAILY PRN 01/24/22 Furosemide [Lasix] 20 mg PO DAILY PRN 02/15/22 Cholecalciferol [Vitamin D3 (125 Mcg = 5000 Iu)] 125 mcg PO DAILY 07/19/22 Estrogens, Conjugated Cream [Premarin Vaginal Cream] 1 applicator VAGINAL DIRECTED 07/19/22 Metoprolol Succinate (ER) [Toprol XL] 50 mg PO DAILY 07/19/22 traMADol HCl [Ultram] 50 mg PO Q6HR PRN 07/19/22 Tezepelumab-Ekko [Tezspire] 1 mg SQ QMONTHLY 08/09/22 Budesonide/Glycopyr/Formoterol [Breztri Aerosphere Inhaler] 2 puff INHALATION BID 11/02/22 Cephalexin [Keflex] 500 mg PO Q6HR 8 Days #30 cap 11/03/22 HYDROcodone/APAP 7.5-325MG [[place] 7.5-325] 1 tab PO Q4H PRN 3 Days #18 tab 11/03/22 tiZANidine [Zanaflex] 4 mg PO Q12HR PRN 30 Days #60 tab 11/16/22 Controlled Substance Measures - Controlled Substance Measures Is patient prescribed a controlled substance at discharge?: No
== END ==
LOC: PNWHC3 10:28
PROVIDERS: ATTEND Specialist
DX: M96.1 Postlaminectomy syndrome, not elsewhere classified (principal); M51.34 Other intervertebral disc degeneration, thoracic region; G89.29 Other chronic pain; M54.50 Low back pain, unspecified; Z91.011 Allergy to milk products; Z88.1 Allergy status to other antibiotic agents; Z88.8 Allergy status to other drugs, medicaments and biological substances; Z91.013 Allergy to seafood; Z91.048 Other nonmedicinal substance allergy status
CPT/HCPCS: 72070; 99211

== ENCOUNTER → 2022-12-28 | Outpatient (CLI) | payer BC, MEDICARE ==
[2022-12-28 11:28] VITALS: BP 170/91; PULSE 81; RESP 14
--- NOTE | 2022-12-28 13:39 | P.PN ---
Progress Note - Text Progress Note Date: 12/28/22 This is a follow-up visit for this 57 years old female with a chronic history of severe low back pain she is diagnosed with chronic pain syndrome, failed back surgery syndrome and lumbar area lumbar spondylosis and lumbar facet arthropathy, lumbar degenerative disc disease, patient here today for follow-up visit , patient had permanent implant of spinal cord stimulator leads and generator, patient here for follow-up visit and had to have reprogramming of the spinal cord stimulator generator, patient denies any motor or sensory deficit she denies any fever or night sweats which she denies any headache. Because patient complaining of loss of stimulation on her right side she had good coverage of her pain on the left side and she is not getting adequate coverage of her pain on the right side low back area and right lower extremity Physical Examination: -Constitutional: Cooperative. Not in acute distress . - Neurologic: Cranial nerve II to XII intact. No focal neurological deficits. - Psychatric: Alert & oriented x 3. Matching mood & appropriate affect. Judgment and insight intact. - Musculoskeletal: Lumbar spine: Motor bulk/ tone/ strength lower extremities , thigh and legs : 5/5 Deep tendon reflexes : Normal Knee Jerk. Normal Ankle Jerk . Vertebral body tenderness to palpation over Quach Test positive Lumbar Facet Loading Test positive Straight Leg Raise: positive at 30 degrees right side/ left side Gaenslen's Test positive Lumbar spine incision healed appropriately no sign of infection, no erythema no discharge at the incision sites Assessment and Plan Plan: Assessment and plan=1-chronic pain syndrome. 2-failed back surgery syndrome lumbar area. 3-lumbar spondylosis with lumbar facet arthropathy without myelopathy. 4-lumbar degenerative disc disease. today we did complex programming of the spinal cord stimulator we were able to cover all her pain on the left side, low back area and left lower extremity but every time we tried to do the programming on the right side , and we were able to get part or most of her pain on the right side, patient gets more than 70% coverage of her low back pain, most 100% of her pain on the left side and most of the pain on the right side, patient will try these new programs for couple of weeks and she will come back for follow-up visit in couple of weeks
== END ==
LOC: PNWHC3 10:57
PROVIDERS: ATTEND Specialist
DX: G89.4 Chronic pain syndrome (principal); M51.36 Other intervertebral disc degeneration, lumbar region; M47.816 Spondylosis without myelopathy or radiculopathy, lumbar region; M96.1 Postlaminectomy syndrome, not elsewhere classified; Z91.048 Other nonmedicinal substance allergy status; Z88.1 Allergy status to other antibiotic agents; Z88.8 Allergy status to other drugs, medicaments and biological substances; Z88.6 Allergy status to analgesic agent; Z91.013 Allergy to seafood; Z91.09 Other allergy status, other than to drugs and biological substances
CPT/HCPCS: 99211

== ENCOUNTER → 2023-01-30 | Outpatient (CLI) | payer BC, MEDICARE ==
--- NOTE | 2023-02-01 12:09 | MM ---
Reason for Exam: Screening (asymptomatic). Last mammogram was performed 1 year(s) and 1 month(s) ago. Patient History: Menarche at age 15. First Full-Term at age 25. Hysterectomy at age 46. Postmenopausal. Patient has history of breast feeding. Hormonal Contraceptives for 3 years from age 20 until age 23. Risk Values: Joyce 5 year model risk: 1.1%. NCI Lifetime model risk: 7.4%. Prior Study Comparison: 11/22/2018 Bilateral Screening Mammogram, [facility]. 01/20/2020 Bilateral Screening Mammogram, [facility]. 01/03/2022 Bilateral MG 3D screening mammo w/cad, [facility]. Tissue Density: There are scattered fibroglandular densities. Findings: Analyzed By CAD. There is no suspicious group of microcalcifications or new suspicious mass in either breast. Overall Assessment: Negative, BI-RAD 1 Management: Screening Mammogram of both breasts in 1 year. . Patient should continue monthly self-breast exams. A clinical breast exam by your physician is recommended on an annual basis. This exam should not preclude additional follow-up of suspicious palpable abnormalities. Note on Joyce scores and lifetime risk: 1. A Joyce score greater than 3% is considered moderate risk. If this is the case, consider specialist referral to assess eligibility for a risk reducing agent. 2. If overall lifetime risk for the development of breast cancer is 20% or higher, the patient may qualify for future screening with alternating mammogram and breast MRI. Electronically signed and approved by: Kodi Santamaria M.D. Radiologis
== END | disposition home or self-care (01) ==
LOC: RADMAMWWP 14:36
PROVIDERS: ATTEND Family Medicine
DX: Z12.31 Encounter for screening mammogram for malignant neoplasm of breast (principal); Z78.0 Asymptomatic menopausal state
CPT/HCPCS: 77063; 77067

== ENCOUNTER → 2023-09-25 | Outpatient (CLI) | payer BC, MEDICARE ==
[2023-09-25 11:31] LABS: INR 0.9 (<1.2); Prothrombin Time 10.3 sec (10.0-12.5)
[2023-09-25 15:57] LABS: Basophils # (A) 0.03 X 10*3/uL (0.00-0.10); Basophils % (A) 0.3 %; Eosinophils % (A) 0.9 %; HGB 12.3 g/dL (12.0-15.0); Lymphocytes # (A) 2.11 X 10*3/uL (0.90-5.00); Lymphocytes % (A) 19.4 %; MCH 26.2 pg (27.0-32.0); MCHC 31.5 g/dL (32.0-37.0); MCV 83.2 FL (80.0-97.0); Mean Platelet Volume 11.4 FL (9.5-12.2); Monocytes # (A) 0.61 X 10*3/uL (0.20-1.00); Monocytes % (A) 5.6 %; NRBC Per 100 WBC 0 X 10*3/uL (0.00-0.01); Neutrophils # (A) 7.95 X 10*3/uL (1.80-7.70); Neutrophils % (A) 73.3 %; Platelet Count 257 X 10*3/uL (140-440); RBC 4.69 X 10*6/uL (4.10-5.20); RDW 14.9 % (11.5-14.5); WBC 10.85 X 10*3/uL (4.50-10.00)
[2023-09-25 16:39] LABS: BUN/Creat Ratio 17.12 Ratio (12.00-20.00); Blood Urea Nitrogen 13.7 mg/dL (9.0-27.0); Glucose 82 mg/dL (70-110)
[2023-09-25 16:40] LABS: ALT 20 U/L (8-44); AST 25 U/L (13-35); Albumin 4.7 g/dL (3.8-4.9); Albumin/Globulin Ratio 1.88 Ratio (1.60-3.17); Alkaline Phosphatase 99 U/L (41-126); Calcium 9.7 mg/dL (8.7-10.3); Carbon Dioxide 27.6 mmol/L (21.6-31.8); Chloride 100 mmol/L (96-109); Globulin 2.5 g/dL (1.6-3.3); Sodium 142 mmol/L (135-145); Total Bilirubin 0.4 mg/dL (0.3-1.2); Total Protein 7.2 g/dL (6.2-8.2)
== END | disposition home or self-care (01) ==
LOC: LABWHC1 10:38
PROVIDERS: ATTEND Family Medicine
DX: Z01.812 Encounter for preprocedural laboratory examination (principal)
CPT/HCPCS: 36415; 80053; 82306; 85025; 85610; 85730

== ENCOUNTER → 2023-10-17 | Outpatient (CLI) | payer BC, MEDICARE | END | disposition home or self-care (01) | LOC: LABPAT 09:51 | PROVIDERS: ATTEND Orthopaedic Surgery | DX: Z01.818 Encounter for other preprocedural examination | CPT/HCPCS: 87070 ==

== ENCOUNTER 2023-10-23 11:23 | Observation (INO) | payer BC, MEDICARE ==
--- NOTE | 2023-10-22 13:59 | P.HPOR ---
History of Present Illness H&P Date: 10/17/23 [facility] DO Yadira Navarrete, MSN, NPC [address] [place] [address] P: Patient Name: Adilene Carbone Age/Sex: 58 / Female : 1965 DATE: Oct 17, 2023 12:28?PM EDT VISIT: PREOPERATIVE H&P Approved [facility] DEMOGRAPHICS: Height: 50 Weight: 227 lbs. Occupation: Disabled VAS: 5 CHIEF COMPLAINT: Preoperative evaluation for C4-7 ACDF IMPRESSION: It was my pleasure to have seen and examined Adilene Carbone. I reviewed the patient's clinical syndrome, physical findings, and imaging studies during the appointment today. It is my impression that the patient has a diagnosis of. 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 It was my pleasure to have seen and examined Ms. Carbone. In our visit today we have had a chance to go over subjective complaints, physical examination findings and treatments including the natural course history without intervention and various interventional options. The patients imaging demonstrates the following findings: On a physical exam, Adilene demonstrates the following findings: A continued sharp, ache-like pain around the posterior and lateral aspects of the neck that radiates down into the bilateral upper extremities. She notes her arm pain is associated with numbness and tingling bilaterally. She notes decreased hand dexterity bilaterally and progressive arm weakness. She states her symptoms worsen with prolonged use of the upper extremities or when turning the head to the left or right. She states her symptoms have become debilitating and have progressed since the time she was last evaluated in office. She reports severe sleep disturbances related to her ongoing pain and associated symptoms. I have explained to the patient that as their condition progresses it will cause further neurological deficits and eventual paralysis. Based on the patients imaging, physical exam, and the rapid progression and disabling nature of their symptoms, at this time I recommend surgery in the form of a: C4-7 ANTERIOR CERVICAL DECOMPRESSION & FUSION I discussed the risk and benefits of this procedure at length with Adilene. The patient agreed to consider pursuing the procedure above mentioned. Prior to surgery, they should follow up with her PCP (Cardio, ID, IM etc) for clearance. Questions were invited and answered, and the patient wishes to proceed as outlined below. Currently, I am recommending: C4-7 ANTERIOR CERVICAL DECOMPRESSION & FUSION Review of surgical risks and benefits as well as an educational packet on the proposed surgical procedure. Risks: All surgical procedures come with inherent risks, including those related to positioning, anesthesia, intraoperative findings, and postoperative complications. It is important to understand that surgery does not come with any guarantee of a successful outcome as complications and adverse events are always possible. The patient was given a handout in the office today discussing the surgical procedure and risks associated with the intervention, both of which were discussed with the patient. These risks include but are not limited to the following: Experiencing same, different or even worse symptoms in back, neck, arms, or legs compared to before surgery. Requiring further surgery or other forms of treatment presently or at some time in the future at same or other levels of the intended spine surgery. On an extreme but fortunately relatively rare basis severe complications such as blindness, stroke, heart attack, temporary and/or permanent nerve injury, paralysis, coma, or may occur, sometimes without known e xplanation. Surgical complications may include but are not limited to risk of infection, fluid accumulation in the surgical dissection site, including a seroma or hematoma, that requires additional surgery, wound drainage, bleeding, new numbness or weakness, vision changes/loss, spinal fluid leakage, non-healing and/or infected incision, headaches, difficulty or inability to swallow, hoarseness, hemopneumothorax, pneumothorax, impotence, retrograde ejaculation, vaginal dryness; injury to nerves, spinal cord, blood vessels, lymphatics or other vital organs (i.e., bowel injury, injury to the great vessels); heterotopic bone formation; complications related to the hardware such as screws, rods, cages including misplaced hardware, device failure, instrumentation at the wrong spine level, hardware fracture/breakage, or hardware loosening; vertebral failure of the spinal column above or below the newly placed hardware; retained surgical instrumentations or devices and the need for further surgery. Medical risks of the planned spine surgery include but are not limited to generalized Infections to the whole body or local areas outside of the surgical site (sepsis), heart attack, bleeding, anaphylaxis, meningitis, seizure, epilepsy, hearing loss, burn worrell, laceration of the head or other areas of the body, bruising, hypersensitivity of the skin, bladder over distension; allergic reaction; shoulder injury related to positioning; fat, blood and air clots to other areas of the body like heart, lungs, brain; failure of internal organs such as lungs, kidneys, liver and excessive bleeding. If blood transfusions are necessary, note that transfusions may cause intolerance reactions such as anaphylaxis or other complex reactions. Despite best efforts, the results of spine surgery might not heal in terms of bone, soft tissues such as skin, fascia, ligaments, and joints. Additionally, in order to achieve best possible results, spine surgery may be carried out beyond the initially planned levels and involve decompression, fusion including insertion of hardware at levels other than the original intended area of surgical interest change some portions of the procedure in order to ensure the best possible outcomes. With spine surgery and spinal fusion, there are different off label uses of instrumentation (devices, implants and hardware) as well as biological substances (bone morphogenic proteins, demineralized bone matrix) as well as using extra bone from allograft sources (i.e. cadaver bone) or autograft (iliac crest bone, ribs, or the spine itself). The patient has been given information about these practices and their inherent risks and benefits. The patient has had a chance to review all the listed information, has been given print outs detailing this information, and has had all his/her questions answered to their satisfaction. It was my pleasure to have seen and examined Adilene. In our visit today we have had a chance to go over my understanding of our patient's current condition, the natural course history without intervention and various interventional options. Questions were invited and answered, and the patient wishes to proceed as outlined above. I have seen and examined the patient for 25 minutes and we have spent more than 50% of the time in repeat and detailed counseling about the patient's condition, its natural course history without and as much as can be predicted with surgery and re-review of various surgical treatment options. In conclusion, Adilene requested we proceed with the above suggested surgery and are willing to accept risks and limitations of the suggested surgery as to the nature of the disease process and our best attempts at treatment for the condition. Thank you again for allowing us to be part of your patient's care. Please don't hesitate to contact me if you have any further questions. FOLLOW UP: POSTOP PLAN AT NEXT VISIT: RECHECK PATIENT EDUCATION: Medications Reviewed: YES In our visit today the patient and I have had a chance to go over my understanding of their current condition, the natural course history without intervention and various interventional options. Questions were invited and answered, and the patient wishes to proceed as outlined above. I will be sure to keep you updated after the patient returns here for further follow-up. Thank you again for your referral. Please do not hesitate to contact me if you have any further questions. Signed and authenticated by: Oct 17, 2023 1:00?PM EDT DO Deanne Navarreteon [facility] [address] [id number] This document is confidential, intended only for the named recipient(s) and may contain information that is privileged or exempt from disclosure under applicable law. If you are not the intended recipient(s), you are notified that the dissemination, distribution or copying of this information is strictly prohibited. If you received this message in error, please notify the sender then delete this message. Past Medical History Past Medical History: Asthma, Chest Pain / Angina, COPD, Diabetes Mellitus, GERD/Reflux, Hyperlipidemia, Hypertension, Musculoskeletal Disorder, Osteoarthritis (OA), Pneumonia, Sleep Apnea/CPAP/BIPAP, Thyroid Disorder Additional Past Medical History / Comment(s): Diet Controlled Diabetes, prone to hypoglycemia. Episodes of lightheadedness and near syncope. Severe tracheobronchomalacia. 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 Occasional tachycardia especially when eating and with activity, controlled with Metoprolol. CPAP use. Thyroid nodules. Spinal stenosis. Vitamin D Deficiency, Iron Deficiency Anemia, low potassium with HCTZ on potassium now. Migraines. Bruises easily. Oxygen at 2-3 liters at hs and PRN. POTS syndrome. Mild sliding hiatal hernia. Bronchiectasis. History of Any Multi-Drug Resistant Organisms: None Reported Date of last positivie culture/infection: 03/2018 MDRO Source:: Lung Past Surgical History: Appendectomy, Back Surgery, Bariatric Surgery, Section, Cholecystectomy, Heart Catheterization, Hysterectomy, Orthopedic Surgery, Tonsillectomy Additional Past Surgical History / Comment(s): Gastric sleeve with hiatal hernia repair, spinal fusion/decompression L4-L5 and S1, bilateral shoulder a rthroscopies, 3 laparotomies due to pain/ovarian cyst/adhesions, D&Cs X2 after miscarriages, lipoma removed from left side of back, colonoscopy, EGD's, tracheal stent removal X3, trachealbronchoplasty, tracheal resection 11/17. Past Anesthesia/Blood Transfusion Reactions: Previous Problems w/ Anesthesia, Motion Sickness, Postoperative Nausea & Vomiting (PONV) Additional Past Anesthesia/Blood Transfusion Reaction / Comment(s): Difficult IV start, difficult intubation("weak airway") - states they use airway band, states occasional memory issues after anesthesia. Past Psychological History: Anxiety, Depression Additional Psychological History / Comment(s): No issues with anxiety and depression now. Smoking Status: Never smoker Past Alcohol Use History: None Reported Past Drug Use History: None Reported - Past Family History Father Family Medical History: Cancer Additional Family Medical History / Comment(s): . Mother Family Medical History: Cancer Additional Family Medical History / Comment(s): . Brother(s) Family Medical History: Pulmonary Embolus Medications and Allergies Home Medications Medication Instructions Recorded Confirmed Type Montelukast [Singulair] 10 mg PO DAILY 04/16/17 12/07/22 History Vitamin B Complex 1 cap PO DAILY 02/15/18 12/07/22 History L.acidoph,Paracasei, B.lactis 1 cap PO DAILY 08/23/18 12/07/22 History [Probiotic] Multivitamins, Thera [Multivitamin 1 tab PO DAILY 08/23/18 12/07/22 History (formulary)] calcium polycarbophiL [Fibercon] 625 mg PO DAILY 09/26/18 12/07/22 History Omeprazole 40 mg PO BID 08/19/19 12/07/22 History Ipratropium-Albuterol Nebulize 3 ml INHALATION RT-BID PRN 05/10/20 12/07/22 History [Duoneb 0.5 mg-3 mg/3 ml Soln] Acetaminophen Tab [Tylenol] 1,000 mg PO Q6H PRN 03/06/21 12/07/22 History Albuterol Sulfate [Proair Hfa] 1 - 2 puff INHALATION RT-QID PRN 03/06/21 12/07/22 History Atorvastatin [Lipitor] 20 mg PO HS 03/06/21 12/07/22 History Digestive Enzymes 1 cap PO DAILY 03/06/21 12/07/22 History Fluticasone Nasal Gloster [Flonase 2 spr EA NOSTRIL QAM PRN 03/06/21 12/07/22 History Nasal Gloster] Triamterene-Hctz 37.5-25Mg 1 tab PO DAILY 03/06/21 12/07/22 History [Maxzide 37.5-25] Docusate [Colace] 100 mg PO BID PRN 01/24/22 12/07/22 History Gabapentin [Neurontin] 100 mg PO TID 01/24/22 12/07/22 History Potassium Chloride ER [K-Dur 20] 20 meq PO DAILY PRN 01/24/22 12/07/22 History Furosemide [Lasix] 20 mg PO DAILY PRN 02/15/22 12/07/22 History Cholecalciferol [Vitamin D3 (125 125 mcg PO DAILY 07/19/22 12/07/22 History Mcg = 5000 Iu)] Estrogens, Conjugated Cream 1 applicator VAGINAL DIRECTED 07/19/22 12/07/22 History [Premarin Vaginal Cream] Metoprolol Succinate (ER) [Toprol 50 mg PO DAILY 07/19/22 12/07/22 History XL] traMADol HCl [Ultram] 50 mg PO Q6HR PRN 07/19/22 12/07/22 History Tezepelumab-Ekko [Tezspire] 1 mg SQ QMONTHLY 08/09/22 12/07/22 History Budesonide/Glycopyr/Formoterol 2 puff INHALATION BID 11/02/22 12/07/22 History [Breztri Aerosphere Inhaler] Cephalexin [Keflex] 500 mg PO Q6HR 8 Days #30 cap 11/03/22 12/07/22 Rx HYDROcodone/APAP 7.5-325MG [[place] 1 tab PO Q4H PRN 3 Days #18 tab 11/03/22 12/07/22 Rx 7.5-325] tiZANidine [Zanaflex] 4 mg PO Q12HR PRN 30 Days #60 tab 11/16/22 12/07/22 Rx Allergies Allergy/AdvReac Type Severity Reaction Status Date / Time cat dander Allergy eye Verified 12/07/22 12:14 swelling ciprofloxacin [From Cipro] Allergy Itching Verified 12/07/22 12:14 gluten Allergy Abdominal Verified 12/07/22 12:14 Pain/HEADACHES, constipation NSAIDS (Non-Steroidal AdvReac Abdominal Verified 12/07/22 12:14 Anti-Inflamma Pain shellfish derived [Shellfish] AdvReac Vomiting Verified 12/07/22 12:14 Physical Examination Osteopathic Statement: *. No significant issues noted on an osteopathic structural exam other than those noted in the History and Physical/Consult.
[~2023-10-23 11:23] MED LIST changes: +ACETAMINOPHEN TAB 500 MG TAB PO PRN; -DEXAMETHASONE SOD PHOSPHATE 4 MG/ML 1 ML VIAL IV ONE; +GABAPENTIN 300 MG CAP PO PRN; -LACTATED RINGERS 1,000 ML IV SCH; +LIDOCAINE 1% (10MG/ML) FOR IV START INTRADERMA PRN; -MIDAZOLAM 2 MG/2 ML VIAL IV PRN; -ONDANSETRON 4 MG/2 ML VIAL IVP ONE; +ONDANSETRON 4 MG/2 ML VIAL IVP PRN; -Pre Op ABX Message 1 EACH MISC MISCELLANE ONE; -SCOPOLAMINE 1 MG/72 HR PATCH TRANSDERM ONE; +TRANEXAMIC 1,000 MG/100ML-NACL 1,000 MG in SALINE 1 100ML.BAG IVPB PRN
[2023-10-23] MEDS: IV FLUID CONTINUATION 1,000 ML IV ONE ×2 (12:05)
[2023-10-23] MEDS: LACTATED RINGERS 1,000 ML IV SCH (12:38)
[2023-10-23] MEDS: ONDANSETRON 4 MG/2 ML VIAL IVP ONE (12:38)
[2023-10-23] MEDS: SCOPOLAMINE 1 MG/72 HR PATCH TRANSDERM STA (12:40)
[2023-10-23 12:51] LABS: Glucose,Whole Blood 109 mg/dL (70-110)
[2023-10-23] MEDS: fentaNYL (PF) 50 MCG/ML 2 ML AMP IVP PRN (12:57)
[2023-10-23] MEDS: DEXAMETHASONE SOD PHOSPHATE 4 MG/ML 1 ML VIAL IV ONE (12:57)
[2023-10-23] MEDS: MIDAZOLAM 2 MG/2 ML VIAL IV PRN (12:58)
[2023-10-23] MEDS ORDERED: HYDROmorphone 0.5 MG/0.5 ML SYRINGE IVP PRN (13:56)
[2023-10-23] MEDS ORDERED: ONDANSETRON 4 MG/2 ML VIAL IVP PRN (13:56)
[2023-10-23] MEDS ORDERED: HYDROcodone/APAP 7.5-325MG 1 EACH TAB PO PRN (14:00)
[2023-10-23] MEDS ORDERED: LIDOCAINE 1% INJ 10MG/ML (20 ML MDV) ONE (14:25)
[2023-10-23] MEDS ORDERED: HYDROmorphone (PF) 1 MG/ML ONE (14:25)
[2023-10-23] MEDS ORDERED: GLYCOPYRROLATE 0.2 MG/ML 2 ML VIAL ONE (14:25)
[2023-10-23] MEDS ORDERED: NALOXONE 0.4 MG/ML 1 ML VIAL ONE (14:25)
[2023-10-23] MEDS ORDERED: TRANEXAMIC 1,000 MG/100ML-NACL PREMIX BAG ONE (14:25)
[2023-10-23] MEDS ORDERED: PROPOFOL 10 MG/ML 20 ML VIAL IV ONE (14:25)
[2023-10-23] MEDS ORDERED: fentaNYL (PF) 50 MCG/ML 2 ML AMP ONE (14:25)
[2023-10-23] MEDS ORDERED: MIDAZOLAM 2 MG/2 ML VIAL ONE (14:25)
[2023-10-23] MEDS ORDERED: KETAMINE HCL IN 0.9 % NACL 50 MG/5 ML SYRINGE ONE (14:25)
[2023-10-23] MEDS ORDERED: SUCCINYLCHOLINE CHLORIDE 200 MG/10 ML VIAL IV ONE (14:25)
[2023-10-23] MEDS ORDERED: NEOSTIGMINE 1 MG/ML 10 ML VIAL ONE (14:25)
[2023-10-23] MEDS ORDERED: ROCURONIUM 10 MG/ML (5 ML VIAL) IV ONE (14:25)
--- NOTE | 2023-10-23 15:57 | P.ANPRN ---
Procedure Note - Anesthesia - Invasive Line Left Arterial Line Time Out Performed: Yes Date of Procedure: 10/23/23 Time of Procedure: 12:56 Location of Patient: PreOp Preparation: Sterile Prep, Sterile Dressing Arterial Line Location: Radial Ultrasound Used: No Purpose - Visualization and Identification of Vasculature: No Narrative: Invasive line placement per sterile protocol utilized.
[2023-10-23] MEDS: LACTATED RINGERS 1,000 ML IV ONE (17:05)
--- NOTE | 2023-10-23 17:12 | P.OP ---
Date of Procedure: 10/23/23 Preoperative Diagnosis: Current Active Problems Cervical disc disorder at C6-C7 level with radiculopathy (Acute) Cervical disc disorder at C5-C6 level with radiculopathy (Acute) Cervical disc disorder at C4-C5 level with radiculopathy (Acute) Cervical stenosis of spine (Acute) Cervical disc herniation (Acute) Neck pain (Acute) Postoperative Diagnosis: Current Active Problems Cervical disc disorder at C6-C7 level with radiculopathy (Acute) Cervical disc disorder at C5-C6 level with radiculopathy (Acute) Cervical disc disorder at C4-C5 level with radiculopathy (Acute) Cervical stenosis of spine (Acute) Cervical disc herniation (Acute) Neck pain (Acute) Procedure(s) Performed: C4-5 ANTERIOR CERVICAL ARTHRODESIS C5-6 ANTERIOR CERVICAL ARTHRODESIS C6-7 ANTERIOR CERVICAL ARTHRODESIS C4-7 ANTERIOR CERVICAL INSTRUMENTATION C4-5, C5-6, C6-7 INSERTION OF BIOMECHANICAL DEVICE, CAGES, X3 USE OF IONM USE OF IO MICROSCOPE Implants: PAUL SECURE C CAGE SECURE C PLATE 10-12MM SCREWS BIO4 DBM AUTOGRAFT Anesthesia: GETA Surgeon: Randall Bennett Decorating Instructor #1: Josh Mai (WAS PRESENT AND ASSISTED WITH ALL ASPECTS OF THE CASE FROM POSITION TO DRESSINCE PLACEMENT) Estimated Blood Loss (ml): 25 IV fluids (ml): 1,500 Urine output (ml): 250 Pathology: none sent Condition: stable Disposition: PACU Indications for Procedure: Adilene Carbone is a 58 year old female presenting for evaluation of neck and bilateral upper extremity pain, bilateral upper extremity numbness, tingling, and weakness. It was my pleasure to have seen and examined Ms. Carbone. In our visit today we have had a chance to go over subjective complaints, physical examination findings and treatments including the natural course history without intervention and various interventional options. The patients imaging demonstrates the following findings: On a physical exam, Adilene demonstrates the following findings: A continued sharp, ache-like pain around the posterior and lateral aspects of the neck that radiates down into the bilateral upper extremities. She notes her arm pain is associated with numbness and tingling bilaterally. She notes decreased hand dexterity bilaterally and progressive arm weakness. She states her symptoms worsen with prolonged use of the upper extremities or when turning the head to the left or right. She states her symptoms have become debilitating and have progressed since the time she was last evaluated in office. She reports severe sleep disturbances related to her ongoing pain and associated symptoms. I have explained to the patient that as their condition progresses it will cause further neurological deficits and eventual paralysis. Based on the patients imaging, physical exam, and the rapid progression and disabling nature of their symptoms, at this time I recommend surgery in the form of a: C4-7 ANTERIOR CERVICAL DECOMPRESSION & FUSION I discussed the risk and benefits of this procedure at length with Adilene. The patient agreed to consider pursuing the procedure above mentioned. Prior to surgery, they should follow up with her PCP (Cardio, ID, IM etc) for clearance. Questions were invited and answered, and the patient wishes to proceed as outlined below. Currently, I am recommending: C4-7 ANTERIOR CERVICAL DECOMPRESSION & FUSION Description of Procedure: C4-7 ACDF plate screws The patient was seen and examined in the preoperative area. All preoperative protocols were followed. Informed consent was obtained, risks and benefits of the procedure were discussed at length. Risks including bleeding infection damage to the surrounding tissue and risk of reoperation were discussed with the patient. Risk of anesthesia up to and including was discussed with the patient. These are outlined in the risk review. They were willing to accept these risks and all the risks of surgery. The patient was given a weight-based dose of antibiotics in the form of 2 g Ancef. The patient was seen and evaluated by the anesthesia team who deemed them fit for surgery. The site was marked, the patient was willing to proceed with the procedure. The patient was transferred to the operative suite by the Department of anesthesia. They were then drifted off to sleep by the department anesthesia and GETA was performed. The patient tolerated this well. Guillen catheter was placed by nursing staff, a-traumatically. Once confirmation of lines and ventilation the patient was transferred to a Supine Samson table very carefully. All bony prominences including wrists, elbows, axilla, chest, hips, and thighs, and feet were padded very well. Special attention was paid to the genitalia, and these were padded accordingly. SCDs were placed on bilateral lower extremities and were connected. Arms were well padded and placed at their side thumbs up. Once in position, again we confirmed good ventilation capabilities and that lines were running appropriately. The patients Cervical spine was then exposed. 1010s were placed outlining the incision site. Standard alcohol was used to clean the incision site and allowed to dry. C-arm was used to bio-carly the patient and confirm level for incision which was marked with a skin marker. Operative briefing was performed with all teams and everyone in agreement to proceed. The patient was then prepped and draped in a normal sterile fashion. Timeout was then performed, and all parties agreed with the procedure to be performed. Transverse skin incision was then made on the right side of the patient's neck 3 cm and dissection taken down to the platysma which was split transversely. Sub platysma flap was made, and interval identified between SCM and medial structures. Omohyoid was visualized and protected. Blunt dissection taken down to the anterior cervical fascia which was identified. Blunt probe was then placed and lateral image taken which confirmed levels for operation. These levels were then marked with a bovi. Subperiosteal dissection of the longissimus muscles were then done over these levels identifying uncovertebral joints bilaterally. Retractor was then placed deep to these muscles and held in place with a bed arm. Microscope was then brought in for visualization. [place] pins were placed into C6 and C7 and gentle distraction taken out over the levels. Duyen rongeur used to remove disc material. Operating microscope brought in for visualization. Complete discectomy performed at this level with curette, rongure and pituitary. High speed bj used to remove osteophytes anteriorly and posteriorly until PLL was identified. 6-0 up curette then used to identify the canal and ressect the PLL. 2-0 and 3-0 Kerrison used then to remove PLL and disc herniation and performed b/l foraminotomies. Once good decompression was accomplished, meticulous hemostasis was performed. Sizers were then placed under lateral fluoroscopy until the desired height and lordosis. Cage was then selected, packed with autograft and allograft and placed under lateral imaging. Once in good position it was tested and stable. Motors run before and after cage placement were stable. The wound was irrigated, and autograft placed lateral to the cage anteriorly for fusion. [place] pin was then removed from C7 and placed into C5 and bone wax placed in their void. Gentle distraction taken out over C5-6 now. Complete discectomy done at C5-6 as described including decompression, b/l foraminotomies and PLL resection. Burring of endplates was minimal, osteophytes removed as described. Spacers were then sized and placed under lateral imaging. Cage selected, packed with graft and placed under lateral images. Once in position, meticulous hemostasis performed, and motors remained stable before and after cage placement. AP image confirmed good placement of cages. Wound was irrigated. [place] pin was then removed from C6 and placed into C4. At C4-5 now, gentle distraction is taken out over the levels. Duyen rongeur used to remove disc material.. Complete discectomy performed at this level with curette, rongure and pituitary. High speed bj used to remove osteophytes anteriorly and posteriorly until PLL was identified. 6-0 up curette then used to identify the canal and ressect the PLL. 2-0 and 3-0 Kerrison used then to remove PLL and disc herniation and performed b/l foraminotomies. Once good decompression was accomplished, meticulous hemostasis was performed. Sizers were then placed under lateral fluoroscopy until the desired height and lordosis. Cage was then selected, packed with autograft and allograft and placed under lateral imaging. Once in good position it was tested and stable. Motors run before and after cage placement were stable. The wound was irrigated, and autograft placed lateral to the cage anteriorly for fusion. Separate non-integrated anterior instrumentation was then done with guided screw placement into each vertebral body. Each screw was first awled and then measured and placed under lateral imaging. Screws had good purchase. Locking mechanisms set. Final AP and lateral images taken confirmed good placement of hardware and good reduction and jewish of height. The wound was then irrigated copiously with NSS. Surgicel placed deep in the wound. A deep drain placed out a separate incision and sewed into place. Layered closure then performed with 3-0 Vicryl in the platysma and subQ tissue. 4-0 stratafix was then placed in the subcuticular skin. The wound was then cleaned, dried and skin glue placed. Once glue dried telfa, 4x4, and tegaderms were placed for dressing. Wound edges approximated well. The patient was then transferred back to their hospital bed a-traumatically. The drain continued to hold suction. They were placed in a soft collar. They were then awakened by the department of anesthesia having tolerated the procedure well without complications.
--- NOTE | 2023-10-23 18:35 | XR ---
EXAMINATION TYPE: XR cervical spine limited DATE OF EXAM: 10/23/2023 COMPARISON: None HISTORY: Anterior cervical fusion TECHNIQUE: Crosstable lateral cervical spine FINDINGS: Patient is intubated. Prevertebral space appears unremarkable. Metallic device is directed to the C5-6 level following adjustment. Postsurgical changes are evident. Fluoroscopy time 36.1 seconds. DAP: 0.5782. Images: 10 IMPRESSION: 1. Fluoroscopy for intraoperative evaluations
[2023-10-23 18:37] LABS: Glucose,Whole Blood 155 mg/dL (70-110)
[2023-10-23] MEDS: ACETAMINOPHEN TAB 325 MG TAB PO SCH (21:18)
[2023-10-23] MEDS: HYDROmorphone 1 MG/ML 1 ML SYRINGE IVP PRN (21:19)
[2023-10-23] MEDS: GABAPENTIN 100 MG CAP PO SCH (21:19)
[2023-10-23] MEDS: KETOROLAC 15 MG/ML 1 ML VIAL IVP SCH (21:19)
[2023-10-24 06:05] LABS: Glucose,Whole Blood 108 mg/dL (70-110)
[2023-10-24] MEDS: SENNOSIDES-DOCUSATE SODIUM 1 EACH TAB PO SCH (08:52)
--- NOTE | 2023-10-24 10:13 | P.CONS ---
History of Present Illness - Reason for Consult Consult date: 10/24/23 - History of Present Illness 58 year old F with PMH of Asthma, Hypertension, Dyslipidemia, thyroid nodule, ITZ on CPAP, POTS presents to [facility] for elective surgery. She underwent C4-7 anterior cervical arthrodesis on 10/[address] Bennett[address] [facility] consulted for medical management of this patient. Patient currently reports 6-7/10 severe pain in her neck. She follows Dr. Singh as her Engraving Supervisor and Dr. Johnson as her Bundle Packer. She reports no other complaints. General: non toxic, no distress, appears at stated age Derm: warm, dry Head: atraumatic, normocephalic, symmetric C-Collar in tact Eyes: EOMI, no lid lag, anicteric sclera Mouth: no lip lesion, mucus membranes moist Cardiovascular: S1S2 reg, no murmur Lungs: CTA bilateral, no rhonchi, no rales , no accessory muscle use Ext: no gross muscle atrophy, no edema, no contractures Neuro: no focal neuro deficits Psych: Alert, oriented, appropriate affect + Guillen Based on my assessment of this patient, this patient meets a moderate complexity level of care. Asthma: Not in acute exacerbation. DuoNeb QID PRN for SOB/wheezing. Singulair 10 mg PO QD. Hypertension: Metoprolol 50 mg PO BID. Triamterene 37.5 mg PO QD. Thyroid nodule: Following PCP for routine surveillance. ITZ: CPAP QHS. CODE STATUS: FULL CODE DVT Prophylaxis: SCD GI Prophylaxis: Protonix PO Designated medical POA if patient is not able to make medical decisions for themselves: I have reviewed the following sales consultant insurance notes: Ortho note. I have reviewed the results of the following tests: K, POC glucose I have ordered the following tests: CBC and BMP is pending. I have discussed the care of this patient with the following independent historian: JOANNE. I have independently interpreted the following test below: I have discussed the management of this patient with the following physician: Past Medical History Past Medical History: Asthma, Chest Pain / Angina, COPD, GERD/Reflux, Hyperlipidemia, Hypertension, Musculoskeletal Disorder, Osteoarthritis (OA), Pneumonia, Sleep Apnea/CPAP/BIPAP, Thyroid Disorder Additional Past Medical History / Comment(s): Diet Controlled Diabetes (pre- diabetic), prone to hypoglycemia. Episodes of lightheadedness and near syncope. Severe tracheobronchomalacia. 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 Occasional tachycardia especially when eating and with activity, controlled with Metoprolol. CPAP use. Thyroid nodules. Spinal stenosis. Vitamin D Deficiency, Iron Deficiency Anemia, low potassium with HCTZ on potassium now. Migraines. Bruises easily. Oxygen at 2-3 liters at hs and PRN. POTS syndrome. Mild sliding hiatal hernia. Bronchiectasis. History of Any Multi-Drug Resistant Organisms: None Reported Year Discovered:: 03/2018 MDRO Source:: Lung Past Surgical History: Appendectomy, Back Surgery, Bariatric Surgery, Section, Cholecystectomy, Heart Catheterization, Hysterectomy, Orthopedic Surgery, Tonsillectomy Additional Past Surgical History / Comment(s): Gastric sleeve with hiatal hernia repair, spinal fusion/decompression L4-L5 and S1, bilateral shoulder arthroscopies, 3 laparotomies due to pain/ovarian cyst/adhesions, D&Cs X2 after miscarriages, lipoma removed from left side of back, colonoscopy, EGD's, tr acheal stent removal X3, trachealbronchoplasty, tracheal resection 11/17. Past Anesthesia/Blood Transfusion Reactions: Previous Problems w/ Anesthesia, Motion Sickness, Postoperative Nausea & Vomiting (PONV) Additional Past Anesthesia/Blood Transfusion Reaction / Comm: Difficult IV start, difficult intubation("weak airway") - states they use airway band, states occasional memory issues after anesthesia. Past Psychological History: Anxiety, Depression Additional Psychological History / Comment(s): No issues with anxiety and depression now. Smoking Status: Never smoker Past Alcohol Use History: None Reported Past Drug Use History: None Reported - Past Family History Father Family Medical History: Cancer Additional Family Medical History / Comment(s): . Mother Family Medical History: Cancer Additional Family Medical History / Comment(s): . Brother(s) Family Medical History: Pulmonary Embolus Medications and Allergies Home Medications Medication Instructions Recorded Confirmed Type Acetaminophen Tab [Tylenol] 1,000 mg PO Q6H PRN 10/22/23 10/22/23 History Budesonide/Glycopyr/Formoterol 10/22/23 History [Breztri Aerosphere Inhaler] Calcium Carb/Mag Hydrox/Simeth 1 tab PO BID PRN 10/22/23 10/22/23 History [Rolaids Adv 1000-200-40 mg Chw] Docusate [Colace] 100 mg PO DAILY PRN 10/22/23 10/22/23 History HYDROcodone/APAP 7.5-325MG [Neversink 1 tab PO Q4H PRN 10/22/23 10/22/23 History 7.5-325] Multivit/Iron Sulf/Folic Acid 1 tab PO DAILY 10/22/23 10/22/23 History [Multivitamin with Iron] Tezepelumab-Ekko [Tezspire] 10/22/23 History Albuterol Inhaler [Ventolin Hfa 10/23/23 History Inhaler] Albuterol Nebulized [Ventolin 2.5 mg INHALATION QID 10/23/23 10/23/23 History Nebulized] Furosemide [Lasix] 20 mg PO DAILY PRN 10/23/23 10/23/23 History Gabapentin [Neurontin] 100 mg PO TID 10/23/23 10/23/23 History Ipratropium-Albuterol Nebulize 3 ml INHALATION QID 10/23/23 10/23/23 History [Duoneb 0.5 mg-3 mg/3 ml Soln] Ipratropium-Albuterol Nebulize 3 ml INHALATION QID PRN 10/23/23 10/23/23 History [Duoneb 0.5 mg-3 mg/3 ml Soln] Metoprolol Tartrate [Lopressor] 50 mg PO BID 10/23/23 10/23/23 History Montelukast [Singulair] 10 mg PO DAILY 10/23/23 10/23/23 History Omeprazole 40 mg PO BID 10/23/23 10/23/23 History Triamterene 37.5 mg PO DAILY 10/23/23 10/23/23 History guaiFENesin-Coden 100-10MG/5ML 5 ml PO Q6HR PRN 10/23/23 10/23/23 History [Robitussin AC] tiZANidine [Zanaflex] 4 mg PO BID 10/23/23 10/23/23 History Allergies Allergy/AdvReac Type Severity Reaction Status Date / Time cat dander Allergy eye Verified 10/23/23 11:57 swelling ciprofloxacin [From Cipro] Allergy Itching Verified 10/23/23 11:57 gluten Allergy Abdominal Verified 10/23/23 11:57 Pain/HEADACHES, constipation NSAIDS (Non-Steroidal AdvReac Abdominal Verified 10/23/23 11:57 Anti-Inflamma Pain shellfish derived [Shellfish] AdvReac Vomiting Verified 10/23/23 11:57 Physical Exam Vitals: Vital Signs Temp Pulse Resp BP Pulse Ox 10/24/23 08:04 98.3 F 64 17 116/65 100 10/24/23 03:26 97.6 F 72 15 99/66 99 10/24/23 00:00 97.8 F 73 16 122/82 96 10/23/23 23:27 97.8 F 73 16 122/82 96 10/23/23 20:00 97.5 F L 87 14 131/74 98 10/23/23 19:45 87 14 132/73 94 L 10/23/23 19:15 82 14 133/71 94 L 10/23/23 19:00 81 14 141/75 94 L 10/23/23 18:45 85 14 141/75 93 L 10/23/23 18:30 79 14 143/76 96 10/23/23 18:15 82 14 143/76 96 10/23/23 18:00 80 14 138/68 96 10/23/23 17:46 98 F 80 14 134/69 98 10/23/23 13:12 69 15 110/55 99 10/23/23 12:30 97.8 F 65 20 123/66 99 Intake and Output 10/23/23 10/24/23 10/24/23 22:59 06:59 14:59 Intake Total 600 100 Output Total 325 900 Balance 275 -800 Intake: IV 600 Oral 100 Output: Urine 300 900 Estimated Blood Loss 25 Other: Voiding Method Indwelling Catheter Indwelling Catheter Weight 104.09 kg 112.5 kg Results CBC & Chem 7: 10/23/23 12:29 Labs: Abnormal Lab Results - Last 24 Hours (Table) 10/23/23 10/23/23 Range/Units 12:29 18:35 Potassium 3.4 L (3.5-5.1) mmol/L POC Glucose (mg/dL) 155 H (70-110) mg/dL
[2023-10-24] MEDS: PANTOPRAZOLE 40 MG TABLET PO SCH (11:06)
[2023-10-24] MEDS: METOPROLOL TARTRATE 50 MG TAB PO SCH (11:06)
[2023-10-24] MEDS: MONTELUKAST 10 MG TAB PO SCH (11:07)
[2023-10-24 11:38] LABS: Glucose,Whole Blood 131 mg/dL (70-110)
--- NOTE | 2023-10-24 11:43 | CT ---
EXAMINATION TYPE: CT cervical spine wo con DATE OF EXAM: 10/24/2023 COMPARISON: None HISTORY: 58-year-old female S/P ACDF C4-C7 TECHNIQUE: Contiguous axial scanning of the cervical spine without IV contrast. Coronal and sagittal reconstructions performed. CT DLP: 677 mGycm Automated exposure control for dose reduction was used. FINDINGS: A surgical drain is in place with a right anterior approach. Some postsurgical edema and foci of air is present throughout this region with some edema in the prevertebral soft tissues as well. There is postsurgical change of C4-C7 ACDF. The left-sided C5, C6, and C7 screw tips extend to and possibly just beyond the posterior vertebral b vera cortex, refer to sagittal image 48 and, for example, axial image 68. Otherwise, no evident hardwa re complication. Alignment is maintained. No acute fracture seen. Scattered mild facet arthropathy. IMPRESSION: 1. RECENT POSTOPERATIVE CHANGES OF C4-C7 ACDF. A RIGHT-SIDED SURGICAL DRAIN WITH ASSOCIATED POSTSURGI AROLDO EDEMA AND SMALL FOCI OF SOFT TISSUE AIR REMAIN. 2. NOTE THAT THE LEFT-SIDED C5, C6, AND C7 SCREW TIPS EXTEND TO AND POSSIBLY JUST BEYOND THE POSTERIO R VERTEBRAL BODY CORTEX (SAGITTAL IMAGE 48). QUESTIONABLE CLINICAL SIGNIFICANCE. OTHERWISE, NO EVIDEN T HARDWARE COMPLICATION.
--- NOTE | 2023-10-24 11:45 | P.PN ---
Subjective Progress Note Date: 10/24/23 Principal diagnosis: C4-7 spondylosis Cervical myelopathy Cervicalgia Patient seen and examined this morning. Patient is resting comfortably in bed. Staff is at bedside to assist patient to chair. Patient states she is looking forward to working with physical therapy. Surgical incision to the anterior cervical spine, dressing is clean dry and intact with BARRIE drain present with unmeasurable amount of red/brown sanguineous drainage. Drain is to remain at this time and will discontinue tomorrow 10/25/23. Hard cervical collar is intact. Patient reports improvement in her cervical pain and bilateral upper extremity radiculopathy since the procedure. Gómez catheter may be discontinued. Continue to encourage patient to work with physical therapy and to use incentive spirometer. No acute concerns. Objective - Vital Signs Vital signs: Vital Signs Temp 98.3 F 10/24/23 08:04 Pulse 64 10/24/23 08:04 Resp 17 10/24/23 08:04 BP 116/65 10/24/23 08:04 Pulse Ox 100 10/24/23 08:04 FiO2 Intake & Output 10/23/23 10/24/23 10/24/23 18:59 06:59 18:59 Intake Total 950 100 Output Total 325 900 Balance 625 -800 Weight 104.09 kg 112.5 kg Intake: IV 950 Oral 100 Output: Urine 300 900 Estimated Blood Loss 25 Other: Voiding Method Indwelling Catheter - Exam Physical Examination General: The patient is awake and alert, in no acute distress Skin: Skin is warm and dry with no obvious rashes or lesions. Surgical incision to the anterior cervical spine, dressing is clean dry and intact with BARRIE drain present. There is unmeasurable amount of red/brown sanguineous output. Eye: Pupils are equal, round and reactive to light, extra-ocular movements are i ntact; there is normal conjunctiva bilaterally. Neck: The neck is supple, there is mild tenderness and limited range of motion due to surgical procedure, hard cervical collar is intact Cardiovascular: There is a regular rate and rhythm. No murmur, rub or gallop is appreciated. Respiratory: Respirations are non-labored, breath sounds are equal. Gastrointestinal: Soft, non-distended, non-tender abdomen. Back: There is no tenderness to palpation in the midline, paralumbar, parathoracic or buttocks region. There is no obvious deformity . Musculoskeletal: ROM limited secondary to pain and stiffness from surgical procedure. Right: Shoulder abduction 4/5, elbow flexors 4/5, wrist dorsiflexors 4/5. finger abductor 4/5, cross country truck driver 4/5, hip flexor 5/5, knee flexor 5/5, ankle dorsiflexor 5/5, ankle plantarflexion 5/5 and extensor hallucis 5/5. Left: Shoulder abduction 4/5, elbow flexors 4/5, wrist dorsiflexors 4/5. finger abductor 4/5, cross country truck driver 4/5, hip flexor 5/5, knee flexor 5/5, ankle dorsiflexor 5/5, ankle plantarflexion 5/5 and extensor hallucis 5/5. Neurological: CN 2-12 intact. There are no obvious motor or sensory deficits. Movement and coordination equal and intact. Sensory exam to light touch intact C5-T1 and intact from L2-S1. Reflexes 2/4 in bilateral upper and lower extremities. Negative Hoffmans, babinski, and clonus signs. Psychiatric: Cooperative, appropriate mood & affect, normal judgment. - Labs CBC & Chem 7: 10/23/23 12:29 Labs: Abnormal Lab Results - Last 24 Hours (Table) 10/23/23 10/23/23 Range/Units 12:29 18:35 Potassium 3.4 L (3.5-5.1) mmol/L POC Glucose (mg/dL) 155 H (70-110) mg/dL Assessment and Plan Assessment: Postop day 1: C4-C7 ACDF Plan: -Appreciate informatics consultant and team management. -Activity: Ambulate QID, OOB all meals, up and about, limit lifting bending twisting to less than 5 lbs. Use walker or cane if needed for stability. -Daily PT/OT, increase ambulation strength and balance. -Hard cervical collar on at all times, may remove for showers -Pain control: Adequate at this time -Meds: reviewed -GI ppx: senna, Miralax -ITZEL gómez this morning. -DVT PPX: Heparin -Hygiene: Maintain dressing clean and dry. -Drains: Maintain for now. Continue to monitor and record output q shift. -Encourage IS 10x/hr -Dispo: Clinically pending *I reviewed and discussed this case with my attending Dr. Bennett, whom has reviewed this chart and films and is in agreement with assessment and plan of care as outlined above. I have personally seen and examined the patient, performed the documentation and the assessment and plan as written. Number of minutes spent on the visit: 20m.
[2023-10-24 12:17] LABS: Basophils % (A) 0 %; Eosinophils # (A) 0.1 k/uL (0-0.7); Eosinophils % (A) 1 %; HGB 11.8 gm/dL (11.4-16.0); Lymphocytes # (A) 1.3 k/uL (1.0-4.8); Lymphocytes % (A) 10 %; MCH 26.8 pg (25.0-35.0); MCHC 31.8 g/dL (31.0-37.0); MCV 84.3 fL (80.0-100.0); Mean Platelet Volume 8.3; Monocytes # (A) 0.6 k/uL (0-1.0); Monocytes % (A) 4 %; Neutrophils # (A) 11.8 k/uL (1.3-7.7); Neutrophils % (A) 85 %; Platelet Count 220 k/uL (150-450); RBC 4.39 m/uL (3.80-5.40); RDW 14.8 % (11.5-15.5); WBC 13.9 k/uL (3.8-10.6)
[2023-10-24] MEDS: IPRATROPIUM-ALBUTEROL 3 ML NEB INHALATION PRN (12:25)
[2023-10-24 12:33] LABS: African American GFR (CKD) >90 (>60 ml/min/1.73 sqM); Anion Gap 6 mmol/L; Blood Urea Nitrogen 12 mg/dL (7-17); Calcium 9.3 mg/dL (8.4-10.2); Carbon Dioxide 30 mmol/L (22-30); Chloride 101 mmol/L (98-107); Glucose 101 mg/dL (74-99); Non-African American GFR(CKD) >90 (>60 ml/min/1.73 sqM); Potassium 3.8 mmol/L (3.5-5.1); Sodium 137 mmol/L (137-145)
--- NOTE | 2023-10-24 15:10 | P.CRDCN ---
History of Present Illness Consult date: 10/24/23 Reason for Consult (text): Cardiac management History of present illness: This is a 58-year-old female patient of Dr. Singh with past medical history of sinus tachycardia, nonischemic cardiomyopathy, dyslipidemia, history of tracheomalacia status post surgery performed at [place], history of asthma. Patient has been admitted under the care of of Dr. Bennett and is status post cervical surgery performed yesterday. Patient denies having any chest pain or shortness of breath at this time. She was noted to have lower blood pressure during the nighttime which is concerning to the patient. She states she is not normally that low. Blood pressure 116/65, during the night it was 99/66. Patient is utilizing CPAP at nighttime. Laboratory studies: WBC 13.9, hemoglobin 9.8. Creatinine 0.7, potassium 3.8, sodium 137. Home cardiac medications: Lasix 20 mg daily as needed, Lopressor 50 mg twice daily. Triamterene 37.5 mg daily. Review Of Systems: At the time of my exam: CONSTITUTIONAL: Denies fever or chills. HEENT: Denies blurred vision, vision changes, or eye pain. Denies hemoptysis CARDIOVASCULAR: Denies chest pain. Denies orthopnea. Denies PND. Denies palpitations RESPIRATORY: Denies shortness of breath. GASTROINTESTINAL: Denies abdominal pain. Denies nausea or vomiting. HEMATOLOGIC: Denies bleeding disorders. GENITOURINARY: Denies any blood in urine. SKIN: Denies puritis. Denies rash. Physical examination: Gen: This is a 58-year-old morbidly obese female resting in recliner in no acute distress VS: reviewed HEENT: Head is atraumatic, normocephalic. Pupils equal, round. Sclerae is anicteric. NECK: Hard c-collar in place. LUNGS: Clear to auscultation. No wheezes or rhonchi. No intercostal retractions. HEART: Distant heart sounds. Regular rate and rhythm. No murmur. ABDOMEN: Soft No tenderness. EXTREMITIES: No pedal edema. No calf tenderness. NEUROLOGICAL: Patient is awake, alert and oriented x3. Assessment: Status post C4-C7 ACDF History of sinus tachycardia Nonischemic cardiomyopathy, stable Dyslipidemia History of tracheomalacia History of asthma Plan: Plan to hold triamterene Monitor blood pressure closely Further recommendations to follow based upon clinical course Thank you kindly for this consultation. Nurse practitioner note has been reviewed, I agree with documented findings and plan of care. Patient was seen and examined. Past Medical History Past Medical History: Asthma, Chest Pain / Angina, COPD, GERD/Reflux, Hy perlipidemia, Hypertension, Musculoskeletal Disorder, Osteoarthritis (OA), Pneumonia, Sleep Apnea/CPAP/BIPAP, Thyroid Disorder Additional Past Medical History / Comment(s): Diet Controlled Diabetes (pre- diabetic), prone to hypoglycemia. Episodes of lightheadedness and near syncope. Severe tracheobronchomalacia. 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 Occasional tachycardia especially when eating and with activity, controlled with Metoprolol. CPAP use. Thyroid nodules. Spinal stenosis. Vitamin D Deficiency, Iron Deficiency Anemia, low potassium with HCTZ on potassium now. Migraines. Bruises easily. Oxygen at 2-3 liters at hs and PRN. POTS syndrome. Mild sliding hiatal hernia. Bronchiectasis. History of Any Multi-Drug Resistant Organisms: None Reported Date of last positivie culture/infection: 03/2018 MDRO Source:: Lung Past Surgical History: Appendectomy, Back Surgery, Bariatric Surgery, Section, Cholecystectomy, Heart Catheterization, Hysterectomy, Orthopedic Surgery, Tonsillectomy Additional Past Surgical History / Comment(s): Gastric sleeve with hiatal hernia repair, spinal fusion/decompression L4-L5 and S1, bilateral shoulder arthroscopies, 3 laparotomies due to pain/ovarian cyst/adhesions, D&Cs X2 after miscarriages, lipoma removed from left side of back, colonoscopy, EGD's, tracheal stent removal X3, trachealbronchoplasty, tracheal resection 11/17. Past Anesthesia/Blood Transfusion Reactions: Previous Problems w/ Anesthesia, Motion Sickness, Postoperative Nausea & Vomiting (PONV) Additional Past Anesthesia/Blood Transfusion Reaction / Comment(s): Difficult IV start, difficult intubation("weak airway") - states they use airway band, states occasional memory issues after anesthesia. Past Psychological History: Anxiety, Depression Additional Psychological History / Comment(s): No issues with anxiety and depression now. Smoking Status: Never smoker Past Alcohol Use History: None Reported Past Drug Use History: None Reported - Past Family History Father Family Medical History: Cancer Additional Family Medical History / Comment(s): . Mother Family Medical History: Cancer Additional Family Medical History / Comment(s): . Brother(s) Family Medical History: Pulmonary Embolus Medications and Allergies Home Medications Medication Instructions Recorded Confirmed Type Acetaminophen Tab [Tylenol] 1,000 mg PO Q6H PRN 10/22/23 10/22/23 History Budesonide/Glycopyr/Formoterol 10/22/23 History [Breztri Aerosphere Inhaler] Calcium Carb/Mag Hydrox/Simeth 1 tab PO BID PRN 10/22/23 10/22/23 History [Rolaids Adv 1000-200-40 mg Chw] Docusate [Colace] 100 mg PO DAILY PRN 10/22/23 10/22/23 History HYDROcodone/APAP 7.5-325MG [[place] 1 tab PO Q4H PRN 10/22/23 10/22/23 History 7.5-325] Multivit/Iron Sulf/Folic Acid 1 tab PO DAILY 10/22/23 10/22/23 History [Multivitamin with Iron] Tezepelumab-Ekko [Tezspire] 10/22/23 History Albuterol Inhaler [Ventolin Hfa 10/23/23 History Inhaler] Albuterol Nebulized [Ventolin 2.5 mg INHALATION QID 10/23/23 10/23/23 History Nebulized] Furosemide [Lasix] 20 mg PO DAILY PRN 10/23/23 10/23/23 History Gabapentin [Neurontin] 100 mg PO TID 10/23/23 10/23/23 History Ipratropium-Albuterol Nebulize 3 ml INHALATION QID 10/23/23 10/23/23 History [Duoneb 0.5 mg-3 mg/3 ml Soln] Ipratropium-Albuterol Nebulize 3 ml INHALATION QID PRN 10/23/23 10/23/23 History [Duoneb 0.5 mg-3 mg/3 ml Soln] Metoprolol Tartrate [Lopressor] 50 mg PO BID 10/23/23 10/23/23 History Montelukast [Singulair] 10 mg PO DAILY 10/23/23 10/23/23 History Omeprazole 40 mg PO BID 10/23/23 10/23/23 History Triamterene 37.5 mg PO DAILY 10/23/23 10/23/23 History guaiFENesin-Coden 100-10MG/5ML 5 ml PO Q6HR PRN 10/23/23 10/23/23 History [Robitussin AC] tiZANidine [Zanaflex] 4 mg PO BID 10/23/23 10/23/23 History Allergies Allergy/AdvReac Type Severity Reaction Status Date / Time cat dander Allergy eye Verified 10/23/23 11:57 swelling ciprofloxacin [From Cipro] Allergy Itching Verified 10/23/23 11:57 gluten Allergy Abdominal Verified 10/23/23 11:57 Pain/HEADACHES, constipation NSAIDS (Non-Steroidal AdvReac Abdominal Verified 10/23/23 11:57 Anti-Inflamma Pain shellfish derived [Shellfish] AdvReac Vomiting Verified 10/23/23 11:57 Physical Exam Vitals: Vital Signs Temp Pulse Resp BP Pulse Ox 10/24/23 08:04 98.3 F 64 17 116/65 100 10/24/23 03:26 97.6 F 72 15 99/66 99 10/24/23 00:00 97.8 F 73 16 122/82 96 10/23/23 23:27 97.8 F 73 16 122/82 96 10/23/23 20:00 97.5 F L 87 14 131/74 98 10/23/23 19:45 87 14 132/73 94 L 10/23/23 19:15 82 14 133/71 94 L 10/23/23 19:00 81 14 141/75 94 L 10/23/23 18:45 85 14 141/75 93 L 10/23/23 18:30 79 14 143/76 96 10/23/23 18:15 82 14 143/76 96 10/23/23 18:00 80 14 138/68 96 10/23/23 17:46 98 F 80 14 134/69 98 10/23/23 13:12 69 15 110/55 99 10/23/23 12:30 97.8 F 65 20 123/66 99 Intake and Output 10/23/23 10/24/23 10/24/23 22:59 06:59 14:59 Intake Total 600 100 Output Total 325 900 Balance 275 -800 Intake: IV 600 Oral 100 Output: Urine 300 900 Estimated Blood Loss 25 Other: Voiding Method Indwelling Catheter Indwelling Catheter Weight 104.09 kg 112.5 kg Results 10/24/23 11:53 08/28/24 11:53 Comprehensive Metabolic Panel 10/23/23 Range/Units 12:29 Potassium 3.4 L (3.5-5.1) mmol/L Current Medications Generic Name Dose Route Start Last Admin Trade Name Freq PRN Reason Stop Dose Admin Acetaminophen 650 mg 10/23/23 18:00 10/24/23 06:43 Acetaminophen Tab 325 Mg Tab PO 11/22/23 17:59 650 mg Q6HR MYLES Administration Hydrocodone Bitart/Acetaminophen 1 each 10/23/23 13:56 Hydrocodone/Apap 10-325mg 1 Each Tab PO 11/22/23 13:55 Q6H PRN Pain Scale 7 - 10 Hydrocodone Bitart/Acetaminophen 1 each 10/23/23 14:00 Hydrocodone/Apap 7.5-325mg 1 Each Tab PO 11/22/23 13:59 Q4HR PRN Pain Cyclobenzaprine HCl 5 mg 10/23/23 13:56 Cyclobenzaprine 5 Mg Tab PO 11/22/23 13:55 TID PRN Muscle Spasm Gabapentin 200 mg 10/23/23 16:00 10/24/23 08:52 Gabapentin 100 Mg Cap PO 11/22/23 15:59 200 mg TID MYLES Administration Hydromorphone HCl 0.5 mg 10/23/23 13:56 Hydromorphone 0.5 Mg/0.5 Ml Syringe IVP 11/22/23 13:55 Q3HR PRN Pain Scale 4 - 6 Hydromorphone HCl 1 mg 10/23/23 13:56 10/24/23 08:51 Hydromorphone 1 Mg/Ml 1 Ml Syringe IVP 11/22/23 13:55 1 mg Q3HR PRN Administration Pain Scale of 7 - 10 Lactated Ringer's 1,000 mls @ 20 mls/hr 10/23/23 06:14 10/23/23 21:45 Lactated Ringers IV 11/22/23 06:13 20 mls/hr .Q24H MYLES Administration Ketorolac Tromethamine 15 mg 10/23/23 18:00 10/24/23 06:42 Ketorolac 15 Mg/Ml 1 Ml Vial IVP 10/25/23 17:59 15 mg Q6HR MYLES Administration Lidocaine HCl 0.1 ml 08/27/24 06:14 Lidocaine 1% (10mg/Ml) For Iv Start INTRADERMA 11/22/23 06:13 PER PROTOCOL PRN IV Start Magnesium Hydroxide 2,400 mg 10/23/23 13:56 Magnesium Hydroxide 2,400 Mg/30 Ml Cup PO 11/22/23 13:55 DAILY PRN Constipation Ondansetron HCl 4 mg 10/23/23 13:56 Ondansetron 4 Mg/2 Ml Vial IVP 11/22/23 13:55 Q8HR PRN Nausea And Vomiting Senna/Docusate Sodium 2 each 10/24/23 09:00 10/24/23 08:52 Sennosides-Docusate Sodium 1 Each Tab PO 11/23/23 08:59 2 each DAILY MYLES Administration Intake and Output 10/23/23 10/24/23 10/24/23 22:59 06:59 14:59 Intake Total 600 100 Output Total 325 900 Balance 275 -800 Intake: IV 600 Oral 100 Output: Urine 300 900 Estimated Blood Loss 25 Other: Voiding Method Indwelling Catheter Indwelling Catheter Weight 104.09 kg 112.5 kg 10/23/23 12:29
[2023-10-24] MEDS: BENZOCAINE/MENTHOL LOZENG 1 EACH LOZENGE MUCOUS MEM PRN (16:45)
[2023-10-24 16:51] LABS: Glucose,Whole Blood 100 mg/dL (70-110)
[2023-10-24] MEDS: DOCUSATE 100 MG CAP PO PRN (20:23)
[2023-10-24] MEDS: HEPARIN SODIUM,PORCINE 5,000 UNIT/ML 1 ML VIAL SQ SCH (20:24)
[2023-10-24 20:29] LABS: Glucose,Whole Blood 160 mg/dL (70-110)
[2023-10-24] MEDS ORDERED: PANTOPRAZOLE 40 MG TABLET PO SCH (21:00)
[2023-10-24] MEDS ORDERED: METOPROLOL TARTRATE 50 MG TAB PO SCH (21:00)
[2023-10-24] MEDS ORDERED: KETOROLAC 15 MG/ML 1 ML VIAL ONE (23:26)
[2023-10-24] MEDS ORDERED: ACETAMINOPHEN TAB 325 MG TAB ONE (23:26)
[2023-10-25 06:11] LABS: Glucose,Whole Blood 86 mg/dL (70-110)
--- NOTE | 2023-10-25 08:28 | P.PN ---
Subjective Progress Note Date: 10/25/23 Principal diagnosis: C4-7 spondylosis Cervical myelopathy Cervicalgia Patient seen and examined this morning. Patient is resting comfortably in bed. Assisted patient up to use restroom, patient was standby assist and tolerated activity very well. Patient does have complaint of some soreness to her throat with swallowing. She states her voice has been hoarse. No difficulty with breathing, although she states she has been coughing up green sputum. Surgical incision to the anterior cervical spine, edges are well-approximated with glue intact. BARRIE drain has been removed and new cervical dressing has been applied. Hard cervical collar is intact. Patient continues to report improvement in her cervical pain and bilateral upper extremity radiculopathy since the procedure. Continue to encourage patient to work with physical therapy and to use incentive spirometer. Patient state she would feel more comfortable to stay one more day and discharge home tomorrow. Objective - Vital Signs Vital signs: Vital Signs Temp 97.4 F L 10/25/23 04:00 Pulse 64 10/25/23 04:00 Resp 17 10/25/23 04:00 BP 93/62 10/25/23 04:00 Pulse Ox 99 10/25/23 04:00 FiO2 Intake & Output 10/24/23 10/25/23 10/25/23 18:59 06:59 18:59 Output Total 600 800 Balance -600 -800 Weight 88 kg Output: Drainage 0 Neck 0 Urine 600 800 Uretheral (Guillen) 600 Other: Voiding Method Indwelling Catheter # Voids 1 - Exam Physical Examination General: The patient is awake and alert, in no acute distress Skin: Skin is warm and dry with no obvious rashes or lesions. Surgical incisi on to the anterior cervical spine, edges are well-approximated with glue intact. BARRIE drain has been removed and new dressing has been applied. Eye: Pupils are equal, round and reactive to light, extra-ocular movements are intact; there is normal conjunctiva bilaterally. Neck: The neck is supple, there is mild tenderness and limited range of motion due to surgical procedure, hard cervical collar is intact Cardiovascular: There is a regular rate and rhythm. No murmur, rub or gallop is appreciated. Respiratory: Respirations are non-labored, breath sounds are equal. Gastrointestinal: Soft, non-distended, non-tender abdomen. Back: There is no tenderness to palpation in the midline, paralumbar, parathoracic or buttocks region. There is no obvious deformity . Musculoskeletal: ROM limited secondary to pain and stiffness from surgical procedure. Right: Shoulder abduction 4/5, elbow flexors 4/5, wrist dorsiflexors 4/5. finger abductor 4/5, cost accountant 4/5, hip flexor 5/5, knee flexor 5/5, ankle dorsiflexor 5/5, ankle plantarflexion 5/5 and extensor hallucis 5/5. Left: Shoulder abduction 4/5, elbow flexors 4/5, wrist dorsiflexors 4/5. finger abductor 4/5, cost accountant 4/5, hip flexor 5/5, knee flexor 5/5, ankle dorsiflexor 5/5, ankle plantarflexion 5/5 and extensor hallucis 5/5. Neurological: CN 2-12 intact. There are no obvious motor or sensory deficits. Movement and coordination equal and intact. Sensory exam to light touch intact C5-T1 and intact from L2-S1. Reflexes 2/4 in bilateral upper and lower extremities. Negative Hoffmans, babinski, and clonus signs. Psychiatric: Cooperative, appropriate mood & affect, normal judgment. - Labs CBC & Chem 7: 10/24/23 11:53 10/24/23 11:53 Labs: Abnormal Lab Results - Last 24 Hours (Table) 10/24/23 10/24/23 10/24/23 Range/Units 11:36 11:53 11:53 WBC 13.9 H (3.8-10.6) k/uL Neutrophils # 11.8 H (1.3-7.7) k/uL Glucose 101 H (74-99) mg/dL POC Glucose (mg/dL) 131 H (70-110) mg/dL 10/24/23 Range/Units 20:27 WBC (3.8-10.6) k/uL Neutrophils # (1.3-7.7) k/uL Glucose (74-99) mg/dL POC Glucose (mg/dL) 160 H (70-110) mg/dL Assessment and Plan Assessment: Postop day 2: C4-C7 ACDF Plan: -Appreciate financial management consultant and team management. -Activity: Ambulate QID, OOB all meals, up and about, limit lifting bending twisting to less than 5 lbs. Use walker or cane if needed for stability. -Daily PT/OT, increase ambulation strength and balance. -Hard cervical collar on at all times, may remove for showers -Pain control: Adequate at this time -Meds: reviewed -GI ppx: senna, Miralax -DVT PPX: Heparin -Hygiene: Maintain dressing clean and dry. -Encourage IS 10x/hr -Dispo: Anticipate discharge home with home care tomorrow 10/26/2023 *I reviewed and discussed this case with my attending Dr. Bennett, whom has reviewed this chart and films and is in agreement with assessment and plan of care as outlined above. I have personally seen and examined the patient, performed the documentation and the assessment and plan as written. Number of minutes spent on the visit: 20m.
[2023-10-25] MEDS ORDERED: TRIAMTERENE-HCTZ 37.5-25MG 1 EACH CAP PO SCH (09:00)
[2023-10-25] MEDS ORDERED: MONTELUKAST 10 MG TAB PO SCH (09:00)
[2023-10-25] MEDS: METOPROLOL TARTRATE 25 MG TAB PO SCH (09:00)
[2023-10-25] MEDS: MAGNESIUM HYDROXIDE 2,400 MG/30 ML CUP PO PRN (09:01)
[2023-10-25] MEDS: HYDROcodone/APAP 10-325MG 1 EACH TAB PO PRN (09:01)
[2023-10-25 11:25] LABS: Glucose,Whole Blood 101 mg/dL (70-110)
[2023-10-25] MEDS: IPRATROPIUM-ALBUTEROL 3 ML NEB INHALATION SCH (11:27)
--- NOTE | 2023-10-25 13:38 | P.PN ---
Subjective Progress Note Date: 10/25/23 Reason for Consult (text): Cardiac management History of present illness: This is a 58-year-old female patient of Dr. Singh with past medical history of sinus tachycardia, nonischemic cardiomyopathy, dyslipidemia, history of tracheomalacia status post surgery performed at [place], history of asthma. Patient has been admitted under the care of of Dr. Bennett and is status post cervical surgery performed yesterday. Patient denies having any chest pain or shortness of breath at this time. She was noted to have lower blood pressure during the nighttime which is concerning to the patient. She states she is not normally that low. Blood pressure 116/65, during the night it was 99/66. Patient is utilizing CPAP at nighttime. Laboratory studies: WBC 13.9, hemoglobin 9.8. Creatinine 0.7, potassium 3.8, sodium 137. Home cardiac medications: Lasix 20 mg daily as needed, Lopressor 50 mg twice daily. Triamterene 37.5 mg daily. 10/24 Patient is seen today in follow-up. Blood pressure is running on the low side 90/61, heart rate 80, pulse ox 97% on 3 L nasal cannula. Physical examination: Gen: This is a 58-year-old morbidly obese female resting in recliner in no acute distress VS: reviewed HEENT: Head is atraumatic, normocephalic. Pupils equal, round. Sclerae is anicteric. NECK: Hard c-collar in place. LUNGS: Clear to auscultation. No wheezes or rhonchi. No intercostal retractions. HEART: Distant heart sounds. Regular rate and rhythm. No murmur. ABDOMEN: Soft No tenderness. EXTREMITIES: No pedal edema. No calf tenderness. NEUROLOGICAL: Patient is awake, alert and oriented x3. Assessment: Status post C4-C7 ACDF History of sinus tachycardia Nonischemic cardiomyopathy, stable Dyslipidemia History of tracheomalacia History of asthma Plan: Plan to hold triamterene Decrease Lopressor to 25 mg twice daily Monitor blood pressure closely Further recommendations to follow based upon clinical course Nurse practitioner note has been reviewed, I agree with documented findings and plan of care. Patient was seen and examined. Objective - Vital Signs Vital signs: Vital Signs Temp 97.4 F L 10/25/23 04:00 Pulse 64 10/25/23 04:00 Resp 17 10/25/23 04:00 BP 93/62 10/25/23 04:00 Pulse Ox 99 10/25/23 04:00 FiO2 Intake & Output 10/24/23 10/25/23 10/25/23 18:59 06:59 18:59 Output Total 600 800 Balance -600 -800 Weight 88 kg Output: Drainage 0 Neck 0 Urine 600 800 Uretheral (Guillen) 600 Other: Voiding Method Indwelling Catheter # Voids 1 - Labs CBC & Chem 7: 10/24/23 11:53 10/24/23 11:53 Labs: Abnormal Lab Results - Last 24 Hours (Table) 10/24/23 10/24/23 10/24/23 Range/Units 11:36 11:53 11:53 WBC 13.9 H (3.8-10.6) k/uL Neutrophils # 11.8 H (1.3-7.7) k/uL Glucose 101 H (74-99) mg/dL POC Glucose (mg/dL) 131 H (70-110) mg/dL 10/24/23 Range/Units 20:27 WBC (3.8-10.6) k/uL Neutrophils # (1.3-7.7) k/uL Glucose (74-99) mg/dL POC Glucose (mg/dL) 160 H (70-110) mg/dL
--- NOTE | 2023-10-25 14:50 | P.PN ---
Subjective Progress Note Date: 10/25/23 Principal diagnosis: neck pain still has neck collar. Complaining from mild neck pain currently. Denies chest pain or shortness of breath. No fevers or chills. Objective - Vital Signs Vital signs: Vital Signs Temp 97.6 F 10/25/23 12:00 Pulse 73 10/25/23 12:00 Resp 17 10/25/23 12:00 BP 97/62 10/25/23 12:00 Pulse Ox 98 10/25/23 12:00 FiO2 Intake & Output 10/24/23 10/25/23 10/25/23 18:59 06:59 18:59 Intake Total 366 Output Total 600 800 700 Balance -600 -800 -334 Weight 88 kg Intake: IV 10 Invasive Line 4 10 Oral 356 Output: Drainage 0 Neck 0 Urine 600 800 700 Uretheral (Guillen) 600 Other: Voiding Method Toilet Toilet # Voids 1 - Exam General: non toxic, no distress, appears at stated age Derm: warm, dry Head: atraumatic, normocephalic, symmetric C-Collar in tact Eyes: EOMI, no lid lag, anicteric sclera Mouth: no lip lesion, mucus membranes moist Cardiovascular: S1S2 reg, no murmur Lungs: CTA bilateral, no rhonchi, no rales , no accessory muscle use Ext: no gross muscle atrophy, no edema, no contractures Neuro: no focal neuro deficits Psych: Alert, oriented, appropriate affect + Guillen - Labs CBC & Chem 7: 10/24/23 11:53 10/24/23 11:53 Labs: Abnormal Lab Results - Last 24 Hours (Table) 10/24/23 Range/Units 20:27 POC Glucose (mg/dL) 160 H (70-110) mg/dL Assessment and Plan Plan: Asthma: Not in acute exacerbation. DuoNeb QID PRN for SOB/wheezing. Singulair 10 mg PO QD. Thyroid nodule: Following PCP for routine surveillance. ITZ: CPAP QHS. Nonischemic cardiomyopathy/History of hypertension, seen by cardiology, increase Lopressor dose as blood pressure borderline. hold triamterene for now. Dyslipidemia: stable History of tracheomalacia: no issues CODE STATUS: FULL CODE DVT Prophylaxis: SCD GI Prophylaxis: Protonix PO
[2023-10-25] MEDS: CYCLOBENZAPRINE 5 MG TAB PO PRN (16:17)
[2023-10-25 19:59] LABS: Glucose,Whole Blood 145 mg/dL (70-110)
[2023-10-26 05:57] LABS: Glucose,Whole Blood 102 mg/dL (70-110)
[2023-10-26 07:49] VITALS: RESP 18
--- NOTE | 2023-10-26 10:28 | P.DS ---
Providers Date of admission: 10/24/23 11:17 Expected date of discharge: 10/26/23 Attending physician: Randall Bennett DO Consults: 10/23/23 14:01 Consult Physician Routine Consulting Provider: Jignesh Singh Consult Reason/Comments: cardiac management Do you want consulting provider notified?: Yes 10/24/23 07:32 Consult Physician Routine Consulting Provider: Brook Song Consult Reason/Comments: Medical Management Do you want consulting provider notified?: Yes 10/25/23 08:58 Consult Physician Routine Consulting Provider: Parish Johnson Consult Reason/Comments: known patient Do you want consulting provider notified?: Yes Primary care physician: Joseph Kaba MD Hospital Course: Date of admission: 10/23/2023 Date of discharge: 10/26/2023 Admission diagnosis: Cervical disc disorder at C6-C7 level with radiculopathy (Acute) Cervical disc disorder at C5-C6 level with radiculopathy (Acute) Cervical disc disorder at C4-C5 level with radiculopathy (Acute) Cervical stenosis of spine (Acute) Cervical disc herniation (Acute) Neck pain (Acute) Discharge diagnosis: Same Attending physician: Dr. Bennett Surgical procedures: C4-C7 ACDF Brief history: Patient is a 58-year-old female with a history of cervical disc disorder from C4-C7 with radiculopathy and history of cervical stenosis. At this point patient has failed conservative treatment measures and has opted to proceed with a elective. Hospital course: Details of patient's surgery can be found in operative report. Patient tolerated the procedure well and was subsequently transported to orthope dic floor. Patient's orthopeidc and medical care was provided daily. Patient had daily laboratory tests performed for evaluation of overall blood counts. Patient had daily physical therapy to include strengthening range of motion as well as education with walker ambulation. Patient was noted to have a relatively uneventful postoperative course. Patient reported satisfactory pain control with oral pain medications by postoperative day 3. Patient showed satisfactory progress with physical therapy. Patient moved steadily through the program and had no difficulty meeting the goals by postoperative day 3. Given patient's otherwise satisfactory course and having met physical therapy goals, plan is to discharge patient home on postoperative day 3. Discharge condition/disposition: Patient will be discharged home in stable condition. Discharge medications: Instructions are given on resumption of patient's normal daily medications per primary care recommendation, in addition patient will be prescribed [place] 10 mg / 325 mg; gabapentin 200 mg 3 times daily; Flexeril 5 mg 3 times daily; senna; Duricef. Spine Discharge and Recovery Instructions Date of Surgery: 10/23/2023 Keep dressing on until 10/28/2023. Once dressing is taken off on 10/28/2023, it is okay to shower directly over incision Diagnosis: Cervical disc disorder at C6-C7 level with radiculopathy (Acute) Cervical disc disorder at C5-C6 level with radiculopathy (Acute) Cervical disc disorder at C4-C5 level with radiculopathy (Acute) Cervical stenosis of spine (Acute) Cervical disc herniation (Acute) Neck pain (Acute) Procedure: C4-C7 ACDF Medications: See medication list All medication refills should be obtained through your primary care doctor or your clinic spine surgeon. Please discuss prescription refills at your follow up appointment. Do not call the hospital for medication refills. Dressing: Leave your dressing in place for a total of 5 days post operatively. Then you may remove your dressing and leave open to air. Keep the area clean and if not able to keep area clean, then cover with sterile gauze and tape. Showering: You may shower 3 days after your procedure allowing soap and water to run over incision. Do not scrub. Do not soak. Blot dry. Follow up: Please confirm a follow up appointment with your surgeon 3 weeks post operati vely. Please make an appointment to follow up with your PCP in 1-2 weeks after surgery for evaluation '3 phase, 3-week plan' POST OP WEEKS 1-3 1. Lifting/carrying/pushing/pulling limited to less than 5 pounds. 2. Do not sit for longer than 15 minutes at one time. Get up and walk around. Prolonged sitting is NOT advised. If you lay down, see if you can tolerate laying down on you front (belly side) 3. Walk for periods of 15 minutes = 1 mile but no longer; do it multiple times times each day. 4. Ice your low back after activity. POST OP WEEKS 3-6 1. Lifting limited to less than 20 pounds. 2. Do not sit for longer than 30 minutes at a time. Frequently change positions. Use a sit-to stand workstation or take frequent breaks from sitting if you have returned to work. 3. Walk for 30 minutes each day. If possible, do these three or more times a day POST OP WEEKS 6+ At your 6-week appointment we will give you a physical therapy referral to focus on a core stabilization and strengthening program. You should also work on leg & buttock strengthening, hamstring & quadriceps stretching, and continue a low impact aerobic activity program such as swimming, walking, or riding a stationary bicycle. During the initial 6 weeks after your surgery, you are at the highest risk of re-injuring your spine. You should generally avoid BLT's (bending, lifting and twisting combination motions) and follow the above guidelines to reduce the chance of reinjury. You can anticipate post op appointments in our office at approximately 3 weeks and 6 weeks after your surgery. INCISION CARE: If your incision is not draining you do NOT need to cover it with a dressing. Keep your incision clean, dry and intact. In most cases, we apply skin glue, chio or sutures to the incision at the time of surgery. This will be like a crust or have the appearance of a scab and will fall off in time on its own. The stitches or chio need to be removed at 3 weeks post op appointment. You may begin to shower 3 days after surgery (this allows the glue to obando well). However, please avoid scrubbing the incision site or peeling off any of the skin glue. This will ensure optimal healing of your incision. Also, during this time avoid soaking the incision area in water - this includes swimming pools, hot tubs or baths. No ointments, lotions or oils on the incision until your surgeon allows. Leave chio, sutures or glue in place. Neurological dysfunction that comes on suddenly can also be a sign of a stroke. Below some common symptoms of a stroke are listed: B - balance difficulty such as sudden onset walking or leaning to one side - NEW E - eye problem such as sudden double vision or trouble seeing on one side - NEW F - Facial weakness or numbness on one side - NEW A - Arm or leg weakness or numbness on one side - NEW S - Slurred speech or difficulty with word finding - NEW T - Time is BRAIN! Call 911 as soon as you recognize these symptoms Diet: Consume a regular diet rich in vegetables and lean protein such as chicken or fish. You should consume in a ratio of approximately 20% fats|40% carbohydrates|40%protein. Vegetables, sweet potatoes, brown rice or quinoa are examples of good carbohydrates. Chips, white bread, cookies and sweets/sugar are examples of bad carbohydrates. Limit your bad carbs, go wild with good carbs. "Life's Simple 7" Guidelines as per [place] [employer] These will help you reclaim your life after surgery and rigging helper in your recovery, keeping in mind your restrictions. (1) Get Active. Physical activity can help people lose weight, control high blood pressure and cholesterol, feel emotionally better, and sleep better. (2) Control Cholesterol. Avoid a diet high in saturated fat, trans fat, & cholesterol. Limit whole milk & cream, ice cream, butter, egg yolks, processed meats (like sausage and hot dogs), and fatty meats. Choose healthy foods that are low in saturated fat, trans fat and cholesterol which include: Fruits and vegetables, fiber rich grain products (like whole grain pasta and brown rice), lean meat such as chicken, fish, nuts, seeds, and legumes. (3) Eat Better. Eat small portions. Shop at the grocery with a list and do not stray from it. Tips for a healthy diet include: Limit sodium intake to less than 1500mg daily, avoid prepackaged, processed, and fast foods, choose a diet rich in fruits, vegetables, and whole grain, high fiber foods, and limit saturated & cholesterol in your diet. (4) Manage Blood Pressure. If you have high blood pressure, you should have a cuff at home so that you can check your blood pressure regularly. Be sure you have a good cuff. An arm one is generally better than a wrist one. Bring the cuff to a doctor's appointment to validate that the measurements that your cuff are taking are accurate. Take your blood pressure twice daily when you are sitting down and relaxing. Record the numbers in a log and bring this log with you to your doctors' appointments. (5) Lose Weight if your BMI is above 25. A healthy BMI is between 19-25. To calculate Your BMI, you may use a Standard BMI Calculator on the NIH BMI website: <www.nhlbi.nih.gov/guidelines/obesity/BMI/bmicalc.htm>. Weigh oneself daily. If you are overweight, set a goal to lose weight. A pound a week loss if needed is a good target. (6) Reduce Blood Sugar. Limit foods and liquids with "added sugars." (Added sugars include sucrose, fructose, glucose, maltose, dextrose, high fructose corn syrup, corn syrup, concentrated fruit juice and honey). (7) Stop Smoking. If you smoke, quitting smoking is one of the best things that you can do for your health. Smoking increases your risk of heart attack, stroke, and peripheral vascular disease, which is a build-up of plaque in your arteries. Please discard all the cigarettes and lighters in your house. Have a plan for what you will do when you have the urge to smoke. Direct and second- hand smoke shortens your life as well as the lives of your family, friends and others around you. For your health and the health of those around you, please consider quitting! Proper Bending Body Mechanics: Maintain a wide stance with one foot slightly in front of the other. Keep your back straight. Bend utilizing the strength in your hips and knees. Do not bend at the waist. Maintain the lifted object at your waist-level close to your body. Avoid lifting weight that causes immediately pain or pain anywhere in the body afterwards. Smoking/Nicotine If there was ever one thing that you could do to increase your overall health, decrease your risk of cardiovascular problems by about 39% the second you make the choice, it is to STOP SMOKING. Your body's most instant gratification is the second you stop smoking. We have all heard the studies, read the articles but it is true, smoking is extremely bad for your overall health, and moreover it is detrimental to your bone health. Nicotine, IN ANY FORM, kills bone cells, prevents your body from healing fractures, and significantly prolongs healing after surgery. In spine surgery specifically, it increases your risk of not healing your bones to create a fusion and increases your risk of having a revision surgery due to this up to 60%. I know it is hard. I know it feels impossible. But there are ways. Take control of your life. We are here to help you through it. And when you are ready, ask us and we can direct you to help if you desire. Use the START Plan to Quit Smoking (please visit the [employer]org website listed below for more information): S = Set a quit date. Choose a date within the next 2 weeks, so you have enough time to prepare without losing your motivation to quit. If you mainly smoke at work, quit on the weekend, so you have a few days to adjust to the change. T = Tell family, friends, and co-workers that you plan to quit. Let your friends and family in on your plan to quit smoking and tell them you need their support and encouragement to stop. Look for a quit jose who wants to stop smoking as well. You can help each other get through the rough times. A = Anticipate and plan for the challenges you'll face while quitting. Most people who begin smoking again do so within the first 3 months. You can help yourself make it through by preparing ahead for common challenges, such as nicotine withdrawal and cigarette cravings. R = Remove cigarettes and other tobacco products from your home, car, and work. Throw away all your cigarettes (no emergency pack!), lighters, ashtrays, and matches. Wash your clothes and freshen up anything that smells like smoke. Shampoo your car, clean your drapes and carpet, and steam your furniture. T = Talk to your doctor about getting help to quit. Your doctor can prescribe medication to help with withdrawal and suggest other alternatives. If you can't see a doctor, you can get many products over the counter at your local pharmacy or grocery store, including the nicotine patch, nicotine lozenges, and nicotine gum. Resources for Quitting Smoking: <https://www.[place].gov/docume nts/[facility]/Quit_Tobacco_Resources_for_patients_313480_7.pdf> Supplementation: Take recommended dosages of Vitamin D and Calcium to help fortify your bones and help them to heal. See your health maintenance packet for dosages and recommended levels. DVT/VTE prophylaxis: You will be given compression stockings from the hospital. Wear these daily for the first two weeks after surgery. You may take them off at night. You may be prescribed a medication to help thin your blood. Take this as directed. If you are not prescribed this medication, early and frequent ambulation has been shown to be the best prophylaxis to deep vein thrombosis and sequelae related to this event. Assessment: Cervical disc disorder at C6-C7 level with radiculopathy (Acute) Cervical disc disorder at C5-C6 level with radiculopathy (Acute) Cervical disc disorder at C4-C5 level with radiculopathy (Acute) Cervical stenosis of spine (Acute) Cervical disc herniation (Acute) Neck pain (Acute) Procedures: C4-C7 ACDF Patient Condition at Discharge: Good Plan - Discharge Summary New Discharge Prescriptions: New cefaDROXiL [Duricef] 500 mg PO Q12HR 5 Days #10 cap Cyclobenzaprine [Flexeril] 5 mg PO TID #21 tablet Sennosides/Docusate Sodium [Senna Plus 8.6-50 mg Softgel] 1 each PO DAILY #20 capsule Gabapentin [Neurontin] 200 mg PO TID #30 cap HYDROcodone/APAP 10-325MG [[place] 10-325] 1 tab PO Q6HR PRN #28 tab PRN Reason: Pain No Action Acetaminophen Tab [Tylenol] 1,000 mg PO Q6H PRN PRN Reason: Pain Multivit/Iron Sulf/Folic Acid [Multivitamin with Iron] 1 tab PO DAILY Docusate [Colace] 100 mg PO DAILY PRN PRN Reason: Constipation Tezepelumab-Ekko [Tezspire] Metoprolol Tartrate [Lopressor] 50 mg PO BID guaiFENesin-Coden 100-10MG/5ML [Robitussin AC] 5 ml PO Q6HR PRN PRN Reason: Cough Montelukast [Singulair] 10 mg PO DAILY Ipratropium-Albuterol Nebulize [Duoneb 0.5 mg-3 mg/3 ml Soln] 3 ml INHALATION QID Gabapentin [Neurontin] 100 mg PO TID Albuterol Nebulized [Ventolin Nebulized] 2.5 mg INHALATION QID Albuterol Inhaler [Ventolin Hfa Inhaler] HYDROcodone/APAP 7.5-325MG [[place] 7.5-325] 1 tab PO Q4H PRN PRN Reason: Pain Calcium Carb/Mag Hydrox/Simeth [Rolaids Adv 1000-200-40 mg Chw] 1 tab PO BID PRN PRN Reason: Indigestion Budesonide/Glycopyr/Formoterol [Breztri Aerosphere Inhaler] tiZANidine [Zanaflex] 4 mg PO BID Triamterene 37.5 mg PO DAILY Omeprazole 40 mg PO BID Ipratropium-Albuterol Nebulize [Duoneb 0.5 mg-3 mg/3 ml Soln] 3 ml INHALATION QID PRN PRN Reason: Shortness Of Breath Furosemide [Lasix] 20 mg PO DAILY PRN PRN Reason: Edema Discharge Medication List Acetaminophen Tab [Tylenol] 1,000 mg PO Q6H PRN 10/22/23 [History] Budesonide/Glycopyr/Formoterol [Breztri Aerosphere Inhaler] 10/22/23 [History] Calcium Carb/Mag Hydrox/Simeth [Rolaids Adv 1000-200-40 mg Chw] 1 tab PO BID PRN 10/22/23 [History] Docusate [Colace] 100 mg PO DAILY PRN 10/22/23 [History] HYDROcodone/APAP 7.5-325MG [[place] 7.5-325] 1 tab PO Q4H PRN 10/22/23 [History] Multivit/Iron Sulf/Folic Acid [Multivitamin with Iron] 1 tab PO DAILY 10/22/23 [History] Tezepelumab-Ekko [Tezspire] 10/22/23 [History] Albuterol Inhaler [Ventolin Hfa Inhaler] 10/23/23 [History] Albuterol Nebulized [Ventolin Nebulized] 2.5 mg INHALATION QID 10/23/23 [History] Furosemide [Lasix] 20 mg PO DAILY PRN 10/23/23 [History] Gabapentin [Neurontin] 100 mg PO TID 10/23/23 [History] Ipratropium-Albuterol Nebulize [Duoneb 0.5 mg-3 mg/3 ml Soln] 3 ml INHALATION QID 10/23/23 [History] Ipratropium-Albuterol Nebulize [Duoneb 0.5 mg-3 mg/3 ml Soln] 3 ml INHALATION QID PRN 10/23/23 [History] Metoprolol Tartrate [Lopressor] 50 mg PO BID 10/23/23 [History] Montelukast [Singulair] 10 mg PO DAILY 10/23/23 [History] Omeprazole 40 mg PO BID 10/23/23 [History] Triamterene 37.5 mg PO DAILY 10/23/23 [History] guaiFENesin-Coden 100-10MG/5ML [Robitussin AC] 5 ml PO Q6HR PRN 10/23/23 [History] tiZANidine [Zanaflex] 4 mg PO BID 10/23/23 [History] Cyclobenzaprine [Flexeril] 5 mg PO TID #21 tablet 10/26/23 [Rx] Gabapentin [Neurontin] 200 mg PO TID #30 cap 10/26/23 [Rx] HYDROcodone/APAP 10-325MG [[place] 10-325] 1 tab PO Q6HR PRN #28 tab 10/26/23 [Rx] Sennosides/Docusate Sodium [Senna Plus 8.6-50 mg Softgel] 1 each PO DAILY #20 capsule 10/26/23 [Rx] cefaDROXiL [Duricef] 500 mg PO Q12HR 5 Days #10 cap 10/26/23 [Rx] Follow up Appointment(s)/Referral(s): Randall Bennett DO [Doctor of Osteopathic Medicine] - 2 Weeks Patient Instructions/Handouts: Anterior Cervical Discectomy (DC), Anterior Cervical Discectomy (GEN) Activity/Diet/Wound Care/Special Instructions: Spine Discharge and Recovery Instructions Date of Surgery: 10/23/2023 Keep dressing on until 10/28/2023. Once dressing is taken off on 10/28/2023, it is okay to shower directly over incision Diagnosis: Cervical disc disorder at C6-C7 level with radiculopathy (Acute) Cervical disc disorder at C5-C6 level with radiculopathy (Acute) Cervical disc disorder at C4-C5 level with radiculopathy (Acute) Cervical stenosis of spine (Acute) Cervical disc herniation (Acute) Neck pain (Acute) Procedure: C4-C7 ACDF Medications: See medication list All medication refills should be obtained through your primary care doctor or your clinic spine surgeon. Please discuss prescription refills at your follow up appointment. Do not call the hospital for medication refills. Dressing: Leave your dressing in place for a total of 5 days post operatively. Then you may remove your dressing and leave open to air. Keep the area clean and if not able to keep area clean, then cover with sterile gauze and tape. Showering: You may shower 3 days after your procedure allowing soap and water to run over incision. Do not scrub. Do not soak. Blot dry. Follow up: Please confirm a follow up appointment with your surgeon 3 weeks post operatively. Please make an appointment to follow up with your PCP in 1-2 weeks after surgery for evaluation '3 phase, 3-week plan' POST OP WEEKS 1-3 1. Lifting/carrying/pushing/pulling limited to less than 5 pounds. 2. Do not sit for longer than 15 minutes at one time. Get up and walk around. Prolonged sitting is NOT advised. If you lay down, see if you can tolerate laying down on you front (belly side) 3. Walk for periods of 15 minutes = 1 mile but no longer; do it multiple times times each day. 4. Ice your low back after activity. POST OP WEEKS 3-6 1. Lifting limited to less than 20 pounds. 2. Do not sit for longer than 30 minutes at a time. Frequently change positions. Use a sit-to stand workstation or take frequent breaks from sitting if you have returned to work. 3. Walk for 30 minutes each day. If possible, do these three or more times a day POST OP WEEKS 6+ At your 6-week appointment we will give you a physical therapy referral to focus on a core stabilization and strengthening program. You should also work on leg & buttock strengthening, hamstring & quadriceps stretching, and continue a low impact aerobic activity program such as swimming, walking, or riding a stationary bicycle. During the initial 6 weeks after your surgery, you are at the highest risk of re-injuring your spine. You should generally avoid BLT's (bending, lifting and twisting combination motions) and follow the above guidelines to reduce the chance of reinjury. You can anticipate post op appointments in our office at approximately 3 weeks and 6 weeks after your surgery. INCISION CARE: If your incision is not draining you do NOT need to cover it with a dressing. Keep your incision clean, dry and intact. In most cases, we apply skin glue, chio or sutures to the incision at the time of surgery. This will be like a crust or have the appearance of a scab and will fall off in time on its own. The stitches or chio need to be removed at 3 weeks post op appointment. You may begin to shower 3 days after surgery (this allows the glue to obando well). However, please avoid scrubbing the incision site or peeling off any of the skin glue. This will ensure optimal healing of your incision. Also, during this time avoid soaking the incision area in water - this includes swimming pools, hot tubs or baths. No ointments, lotions or oils on the incision until your surgeon allows. Leave chio, sutures or glue in place. Neurological dysfunction that comes on suddenly can also be a sign of a stroke. Below some common symptoms of a stroke are listed: B - balance difficulty such as sudden onset walking or leaning to one side - NEW E - eye problem such as sudden double vision or trouble seeing on one side - NEW F - Facial weakness or numbness on one side - NEW A - Arm or leg weakness or numbness on one side - NEW S - Slurred speech or difficulty with word finding - NEW T - Time is BRAIN! Call 911 as soon as you recognize these symptoms Diet: Consume a regular diet rich in vegetables and lean protein such as chicken or fish. You should consume in a ratio of approximately 20% fats|40% carbohydrates|40%protein. Vegetables, sweet potatoes, brown rice or quinoa are examples of good carbohydrates. Chips, white bread, cookies and sweets/sugar are examples of bad carbohydrates. Limit your bad carbs, go wild with good carbs. "Life's Simple 7" Guidelines as per [place] [employer] These will help you reclaim your life after surgery and rigging helper in your recovery, keeping in mind your restrictions. (1) Get Active. Physical activity can help people lose weight, control high blood pressure and cholesterol, feel emotionally better, and sleep better. (2) Control Cholesterol. Avoid a diet high in saturated fat, trans fat, & cholesterol. Limit whole milk & cream, ice cream, butter, egg yolks, processed meats (like sausage and hot dogs), and fatty meats. Choose healthy foods that are low in saturated fat, trans fat and cholesterol which include: Fruits and vegetables, fiber rich grain products (like whole grain pasta and brown rice), lean meat such as chicken, fish, nuts, seeds, and legumes. (3) Eat Better. Eat small portions. Shop at the grocery with a list and do not stray from it. Tips for a healthy diet include: Limit sodium intake to less than 1500mg daily, avoid prepackaged, processed, and fast foods, choose a diet rich in fruits, vegetables, and whole grain, high fiber foods, and limit saturated & cholesterol in your diet. (4) Manage Blood Pressure. If you have high blood pressure, you should have a cuff at home so that you can check your blood pressure regularly. Be sure you have a good cuff. An arm one is generally better than a wrist one. Bring the cuff to a doctor's appointment to validate that the measurements that your cuff are taking are accurate. Take your blood pressure twice daily when you are sitting down and relaxing. Record the numbers in a log and bring this log with you to your doctors' appointments. (5) Lose Weight if your BMI is above 25. A healthy BMI is between 19-25. To calculate Your BMI, you may use a Standard BMI Calculator on the NIH BMI website: <www.nhlbi.nih.gov/guidelines/obesity/BMI/bmicalc.htm>. Weigh oneself daily. If you are overweight, set a goal to lose weight. A pound a week loss if needed is a good target. (6) Reduce Blood Sugar. Limit foods and liquids with "added sugars." (Added sugars include sucrose, fructose, glucose, maltose, dextrose, high fructose corn syrup, corn syrup, concentrated fruit juice and honey). (7) Stop Smoking. If you smoke, quitting smoking is one of the best things that you can do for your health. Smoking increases your risk of heart attack, stroke, and peripheral vascular disease, which is a build-up of plaque in your arteries. Please discard all the cigarettes and lighters in your house. Have a plan for what you will do when you have the urge to smoke. Direct and second- hand smoke shortens your life as well as the lives of your family, friends and others around you. For your health and the health of those around you, please consider quitting! Proper Bending Body Mechanics: Maintain a wide stance with one foot slightly in front of the other. Keep your back straight. Bend utilizing the strength in your hips and knees. Do not bend at the waist. Maintain the lifted object at your waist-level close to your body. Avoid lifting weight that causes immediately pain or pain anywhere in the body afterwards. Smoking/Nicotine If there was ever one thing that you could do to increase your overall health, decrease your risk of cardiovascular problems by about 39% the second you make the choice, it is to STOP SMOKING. Your body's most instant gratification is the second you stop smoking. We have all heard the studies, read the articles but it is true, smoking is extremely bad for your overall health, and moreover it is detrimental to your bone health. Nicotine, IN ANY FORM, kills bone cells, prevents your body from healing fractures, and significantly prolongs healing after surgery. In spine surgery specifically, it increases your risk of not healing your bones to create a fusion and increases your risk of having a revision surgery due to this up to 60%. I know it is hard. I know it feels impossible. But there are ways. Take contro l of your life. We are here to help you through it. And when you are ready, ask us and we can direct you to help if you desire. Use the START Plan to Quit Smoking (please visit the Helpguide.org website listed below for more information): S = Set a quit date. Choose a date within the next 2 weeks, so you have enough time to prepare without losing your motivation to quit. If you mainly smoke at work, quit on the weekend, so you have a few days to adjust to the change. T = Tell family, friends, and co-workers that you plan to quit. Let your friends and family in on your plan to quit smoking and tell them you need their support and encouragement to stop. Look for a quit jose who wants to stop smoking as well. You can help each other get through the rough times. A = Anticipate and plan for the challenges you'll face while quitting. Most people who begin smoking again do so within the first 3 months. You can help yourself make it through by preparing ahead for common challenges, such as nicotine withdrawal and cigarette cravings. R = Remove cigarettes and other tobacco products from your home, car, and work. Throw away all your cigarettes (no emergency pack!), lighters, ashtrays, and matches. Wash your clothes and freshen up anything that smells like smoke. Shampoo your car, clean your drapes and carpet, and steam your furniture. T = Talk to your doctor about getting help to quit. Your doctor can prescribe medication to help with withdrawal and suggest other alternatives. If you can't see a doctor, you can get many products over the cou nter at your local pharmacy or grocery store, including the nicotine patch, nicotine lozenges, and nicotine gum. Resources for Quitting Smoking: <https://www.[place].gov/documents/[facility]/Quit_To bacco_Resources_for_patients_313480_7.pdf> Supplementation: Take recommended dosages of Vitamin D and Calcium to help fortify your bones and help them to heal. See your health maintenance packet for dosages and recommended levels. DVT/VTE prophylaxis: You will be given compression stockings from the hospital. Wear these daily for the first two weeks after surgery. You may take them off at night. You may be prescribed a medication to help thin your blood. Take this as directed. If you are not prescribed this medication, early and frequent ambulation has been shown to be the best prophylaxis to deep vein thrombosis and sequelae related to this event.
--- NOTE | 2023-10-26 10:39 | P.PN ---
Subjective Progress Note Date: 10/26/23 Principal diagnosis: Cervical disc disorder at C6-C7 level with radiculopathy (Acute) Cervical disc disorder at C5-C6 level with radiculopathy (Acute) Cervical disc disorder at C4-C5 level with radiculopathy (Acute) Cervical stenosis of spine (Acute) Cervical disc herniation (Acute) Neck pain (Acute) Patient was seen at bedside this morning sitting up in chair with dressing in hard c-collar in place over cervical spine. Patient says she is looking forward to going home later today. She says she has been up walking around the room and feels she has improved over the past few days since surgery. Patient says she has urinated since surgery without issue. Patient says the pain is controlled with oral medication. Patient denies any other issues at this time. Patient d enies fever/chills. Objective - Vital Signs Vital signs: Vital Signs Temp 98 F 10/26/23 07:48 Pulse 84 10/26/23 08:50 Resp 18 10/26/23 07:48 BP 106/67 10/26/23 07:48 Pulse Ox 98 10/26/23 07:48 FiO2 Intake & Output 10/25/23 10/26/23 10/26/23 18:59 06:59 18:59 Intake Total 1078 480 Output Total 700 1200 Balance 378 -720 Weight 107.3 kg Intake: IV 10 Invasive Line 4 10 Oral 1068 480 Output: Urine 700 1200 Other: Voiding Method Toilet Toilet - Exam Inspection: Hard c-collar in place. Dressing present over anterior cervical spine. Dressing appears to be clean, dry, intact. Incision appears to be h ealing well. Negative for any active drainage. Sensation: There is some generalized numbness and tingling through C4-C7 dermatomes. Sensation is equal, symmetric, bilateral intact throughout the rest of the upper extremities. Palpation: There is some generalized tenderness to palpation over the anterior cervical spine near incision. Nontender to palpation throughout rest of exam. Range of motion: Patient does have limited range of motion the bilateral shoulders secondary to referred stiffness and pain in the neck and the shoulder blades Motor: 4/5 in all major motor groups in bilateral upper extremities Neurovascular: Radial pulse intact, 2+ bilaterally. Cap refill under 3 seconds in digits of upper extremities. Special test: Negative clonus bilaterally. Negative Bk bilaterally. Negative Homans bilaterally. - Labs CBC & Chem 7: 10/24/23 11:53 10/24/23 11:53 Labs: Abnormal Lab Results - Last 24 Hours (Table) 10/25/23 Range/Units 19:58 POC Glucose (mg/dL) 145 H (70-110) mg/dL Assessment and Plan Assessment: Cervical disc disorder at C6-C7 level with radiculopathy (Acute) Cervical disc disorder at C5-C6 level with radiculopathy (Acute) Cervical disc disorder at C4-C5 level with radiculopathy (Acute) Cervical stenosis of spine (Acute) Cervical disc herniation (Acute) Neck pain (Acute) -Postop day #3 status post C4-C7 ACDF Plan: 1. Cervical disc disorders from C4-C7; disc herniation from C4-C7; upper ext remity radiculopathy -patient stable bedside this morning with dressing present over anterior cervical spine and hard c-collar in place. Dressing is clean, dry, intact. Patient progressing well with PT/OT. Pain controlled with oral medication. Discharge home today with home care. 2. Appreciate medical management 3. Pain management -[place]; gabapentin; Flexeril 4. GI prophylaxis -senna 5. DVT prophylaxis -mechanical 6 PT/OT -weightbearing as tolerated. Hard c-collar on at all times 7. Encourage incentive spirometer use 8. Discharge planning -discharge home today Time with Patient: Less than 30
--- NOTE | 2023-10-26 11:17 | P.PN ---
Subjective Progress Note Date: 10/26/23 Principal diagnosis: neck pain patient doing well, starting to ambulate. Still with neck pain. Pain however is controlled. No overnight events. Objective - Vital Signs Vital signs: Vital Signs Temp 98 F 10/26/23 07:48 Pulse 84 10/26/23 08:50 Resp 18 10/26/23 07:48 BP 106/67 10/26/23 07:48 Pulse Ox 98 10/26/23 07:48 FiO2 Intake & Output 10/25/23 10/26/23 10/26/23 18:59 06:59 18:59 Intake Total 1078 480 240 Output Total 700 1200 Balance 378 -720 240 Weight 107.3 kg Intake: IV 10 Invasive Line 4 10 Oral 1068 480 240 Output: Urine 700 1200 Other: Voiding Method Toilet Toilet - Exam General: non toxic, no distress, appears at stated age Derm: warm, dry Head: atraumatic, normocephalic, symmetric C-Collar in tact Eyes: EOMI, no lid lag, anicteric sclera Mouth: no lip lesion, mucus membranes moist Cardiovascular: S1S2 reg, no murmur Lungs: CTA bilateral, no rhonchi, no rales , no accessory muscle use Ext: no gross muscle atrophy, no edema, no contractures Neuro: no focal neuro deficits Psych: Alert, oriented, appropriate affect + Guillen - Labs CBC & Chem 7: 10/24/23 11:53 10/24/23 11:53 Labs: Abnormal Lab Results - Last 24 Hours (Table) 10/25/23 Range/Units 19:58 POC Glucose (mg/dL) 145 H (70-110) mg/dL Assessment and Plan Plan: Chronic neck pain status post surgery by Ortho Asthma: Not in acute exacerbation. DuoNeb QID PRN for SOB/wheezing. Singulair 10 mg PO QD. Thyroid nodule: Following PCP for routine surveillance. ITZ: CPAP QHS. Nonischemic cardiomyopathy/History of hypertension, seen by cardiology, increase Lopressor dose as blood pressure borderline. hold triamterene for now. Dyslipidemia: stable History of tracheomalacia: no issues CODE STATUS: FULL CODE DVT Prophylaxis: SCD GI Prophylaxis: Protonix PO Patient cleared by medicine for discharge.
[2023-10-26 11:42] LABS: Glucose,Whole Blood 78 mg/dL (70-110)
[2023-10-26 12:07] VITALS: BP 108/73; TEMP 98.1
--- NOTE | 2023-10-26 14:33 | P.PN ---
Subjective Progress Note Date: 10/26/23 Reason for Consult (text): Cardiac management History of present illness: This is a 58-year-old female patient of Dr. Singh with past medical history of sinus tachycardia, nonischemic cardiomyopathy, dyslipidemia, history of tracheomalacia status post surgery performed at [facility], history of asthma. Patient has been admitted under the care of of Dr. Bennett and is status post cervical surgery performed yesterday. Patient denies having any chest pain or shortness of breath at this time. She was noted to have lower blood pressure during the nighttime which is concerning to the patient. She states she is not normally that low. Blood pressure 116/65, during the night it was 99/66. Patient is utilizing CPAP at nighttime. Laboratory studies: WBC 13.9, hemoglobin 9.8. Creatinine 0.7, potassium 3.8, sodium 137. Home cardiac medications: Lasix 20 mg daily as needed, Lopressor 50 mg twice daily. Triamterene 37.5 mg daily. 10/24 Patient is seen today in follow-up. Blood pressure is running on the low side 90/61, heart rate 80, pulse ox 97% on 3 L nasal cannula. 10/25 Yesterday, metoprolol was decreased to 25 mg twice daily due to low blood pressure, blood pressure this morning 108/73, heart rate is in the 70s and 80s. Pulse ox 100% on 3 L nasal cannula. Patient is anticipating discharge home today. Physical examination: Gen: This is a 58-year-old morbidly obese female resting in recliner in no acute distress VS: reviewed HEENT: Head is atraumatic, normocephalic. Pupils equal, round. Sclerae is anicteric. NECK: Hard c-collar in place. LUNGS: Clear to auscultation. No wheezes or rhonchi. No intercostal retractions. HEART: Distant heart sounds. Regular rate and rhythm. No murmur. ABDOMEN: Soft No tenderness. EXTREMITIES: No pedal edema. No calf tenderness. NEUROLOGICAL: Patient is awake, alert and oriented x3. Assessment: Status post C4-C7 ACDF History of sinus tachycardia Nonischemic cardiomyopathy, stable Dyslipidemia History of tracheomalacia History of asthma Plan: Plan to hold triamterene Decrease Lopressor to 25 mg twice daily Monitor blood pressure closely Patient is cleared for discharge from cardiology with decreased dose of Lopressor. Patient may follow-up with Dr. Singh in 2 to 3 weeks. Nurse practitioner note has been reviewed, I agree with documented findings and plan of care. Patient was seen and examined. Objective - Vital Signs Vital signs: Vital Signs Temp 98 F 10/26/23 07:48 Pulse 84 10/26/23 08:50 Resp 18 10/26/23 07:48 BP 106/67 10/26/23 07:48 Pulse Ox 98 10/26/23 07:48 FiO2 Intake & Output 10/25/23 10/26/23 10/26/23 18:59 06:59 18:59 Intake Total 1078 480 Output Total 700 1200 Balance 378 -720 Weight 107.3 kg Intake: IV 10 Invasive Line 4 10 Oral 1068 480 Output: Urine 700 1200 Other: Voiding Method Toilet Toilet - Labs CBC & Chem 7: 10/24/23 11:53 10/24/23 11:53 Labs: Abnormal Lab Results - Last 24 Hours (Table) 10/25/23 Range/Units 19:58 POC Glucose (mg/dL) 145 H (70-110) mg/dL
[2023-10-26 16:30] VITALS: PULSE 76
== END 2023-10-26 16:42 | disposition home or self-care (01) ==
LOC: OR 11:23 → 3SCARD 17:11 → OR 10-24 11:17 → 3SCARD 10-24 11:17
PROVIDERS: ADMIT Orthopaedic Surgery; ATTEND Orthopaedic Surgery
DX: M50.121 Cervical disc disorder at C4-C5 level with radiculopathy (principal); M50.122 Cervical disc disorder at C5-C6 level with radiculopathy; M50.123 Cervical disc disorder at C6-C7 level with radiculopathy; I42.8 Other cardiomyopathies; E78.5 Hyperlipidemia, unspecified; J44.9 Chronic obstructive pulmonary disease, unspecified; K21.9 Gastro-esophageal reflux disease without esophagitis; I10 Essential (primary) hypertension; E11.9 Type 2 diabetes mellitus without complications; G47.33 Obstructive sleep apnea (adult) (pediatric); F32.A Depression, unspecified; F41.9 Anxiety disorder, unspecified; E04.2 Nontoxic multinodular goiter; E66.01 Morbid (severe) obesity due to excess calories; Z68.42 Body mass index [BMI] 45.0-49.9, adult; Z79.899 Other long term (current) drug therapy; Z88.1 Allergy status to other antibiotic agents; Z88.6 Allergy status to analgesic agent
CPT/HCPCS: 72040; 72125; 80048; 84132; 85025; 86850; 86900; 86901; 94640; 94760; 96365; 96375; 96376

== ENCOUNTER → 2024-05-06 | Outpatient (CLI) | payer BC, MEDICARE ==
--- NOTE | 2024-05-06 15:02 | US ---
EXAMINATION TYPE: US thyroid st tissue head/neck DATE OF EXAM: 05/06/2024 COMPARISON: 03/03/2022. CLINICAL INDICATION: Female, 58 years old with history of E04.1 NODULE; F/U Nodules TECHNIQUE: Grayscale and color Doppler imaging of the thyroid gland. FINDINGS: GLAND SIZE: Right Lobe: 5.5 x 2.2 x 1.3 cm Overall Parenchyma: heterogeneous Left Lobe: 4.8 x 1.5 x 1.6 cm Overall Parenchyma: heterogeneous Isthmus Thickness: 0.4 cm NODULES RIGHT: # of nodules measured on right: 2 1. 2.0 X 1.6 x 1.2 cm, lower, Prior size: 1.9 x 1.7 x 1.5 cm TIRADS Score: 3 TIRADS Category 3 Composition: Solid or almost completely solid (2 points). Echogenicity: Hyperechoic or isoechoic (1 point). Shape: Wider than tall (0 points). Margin: Smooth (0 points). Echogenic foci: None or large comet-tail artifacts (0 points) Recommendation: If >2.5cm: FNA; If >1.5cm: Follow up at 1,3,5 years 2. 0.7 X 0.5 x 0.4 cm, mid, Prior size: 0.7 x 0.7 x 0.5 cm TIRADS Score: 4 TIRADS Category 4: Moderately Suspicious Composition: Solid or almost completely solid (2 points). Echogenicity: Hypoechoic (2 points). Shape: Wider than tall (0 points). Margin: Smooth (0 points). Echogenic foci: None or large comet-tail artifacts (0 points) Recommendation: If >1.5cm: FNA; If >1cm: Follow up at 1,2, 3,5 years LEFT: # of nodules measured on left: 2 1. 1.0 X 0.9 x 0.6 cm, mid lateral, Prior size: 1.0 x 0.7 x 0.5 cm TIRADS Score: 4 TIRADS Category 4: Composition: Solid or almost completely solid (2 points). Echogenicity: Hypoechoic (2 points). Shape: Wider than tall (0 points). Margin: Smooth (0 points). Echogenic foci: None or large comet-tail artifacts (0 points) Recommendation: If >1.5cm: FNA; If >1cm: Follow up at 1,2, 3,5 years 2. 0.7 X 0.6 x 0.3 cm, mid, Prior size: 0.8 x 0.5 x 0.4 cm TIRADS Score: 3 TIRADS Category 3: Composition: Solid or almost completely solid (2 points). Echogenicity: Hyperechoic or isoechoic (1 point). Shape: Wider than tall (0 points). Margin: Smooth (0 points). Echogenic foci: None or large comet-tail artifacts (0 points) Recommendation: If >2.5cm: FNA; If >1.5cm: Follow up at 1,3,5 years ISTHMUS: # of nodules measured in the isthmus: 0 Bilateral neck scanned, no evidence of lymphadenopathy. Minimal change to nodules bilaterally. IMPRESSION: Thyroid nodules that meet criteria for follow-up. [facility], , 05/06/2024 2:59 PM
--- NOTE | 2024-05-06 15:13 | MM ---
Reason for Exam: Screening (asymptomatic). Last mammogram was performed 1 year(s) and 3 month(s) ago. Patient History: Menarche at age 15. First Full-Term at age 25. Hysterectomy at age 46. Postmenopausal. Patient has history of breast feeding. Currently using Progesterone. Hormonal Contraceptives for 3 years from age 20 until age 23. Risk Values: Joyce 5 year model risk: 1.1%. NCI Lifetime model risk: 7.2%. Prior Study Comparison: 01/20/2020 Bilateral Screening Mammogram, [facility]. 01/03/2022 Bilateral MG 3D screening mammo w/cad, [facility]. 01/30/2023 Bilateral MG 3D screening mammo w/cad, [facility]. Tissue Density: The breasts are heterogeneously dense, which may obscure small masses. Findings: Analyzed By CAD. There is no suspicious group of microcalcifications or new suspicious mass in either breast. Overall Assessment: Benign, BI-RAD 2 Management: Screening Mammogram of both breasts in 1 year. . Patient should continue monthly self-breast exams. A clinical breast exam by your physician is recommended on an annual basis. This exam should not preclude additional follow-up of suspicious palpable abnormalities. Note on Joyce scores and lifetime risk: 1. A Joyce score greater than 3% is considered moderate risk. If this is the case, consider specialist referral to assess eligibility for a risk reducing agent. 2. If overall lifetime risk for the development of breast cancer is 20% or higher, the patient may qualify for future screening with alternating mammogram and breast MRI. [facility], , 05/06/2024 3:10 PM. Electronically signed and approved by: Kodi Santamaria M.D. Radiologis
--- NOTE | 2024-05-07 08:29 | BD ---
EXAMINATION TYPE: Axial Bone Density DATE OF EXAM: 05/06/2024 CLINICAL HISTORY: 58 years old Female. ICD-10 CODE: Z78.0 POSTMENOPAUSAL , Additional History: Height: 59.5 in Weight: 227 lbs FRAX RISK QUESTIONS: History of Fracture in Adulthood: ribs age 55 Secondary Osteoporosis: 3. Menopause before 45: partial hysterectomy age 46 4. Malnutrition: yes pt has celiac disease 5. Chronic liver disease: fatty liver RISK FACTORS HISTORY OF: Surgery to Spine: yes When: fusion lumbar spine age 51 EXAM MEASUREMENTS: Bone mineral densitometry was performed using the [employer] System. Bone mineral density about the R hip (g/cm2): 0.918 Bone mineral density about the L hip (g/cm2): 0.970 T Score values are as follows: -----R Neck: -1.3 -----L Neck: -1.3 -----R Total: -0.7 -----L Total: -0.3 Z Score values are as follows: -----R Neck: -1.0 -----L Neck: -0.9 -----R Total: -0.8 -----L Total: -0.4 Bone mineral density baseline Bone mineral density about the L Wrist (g/cm2): 0.601 T Score values are as follows: -----Dist. R+U: -2.3 -----Prox. R+U: -0.3 -----Radius total: -1.2 Z Score values are as follows: -----Dist. R+U: -1.6 -----Prox. R+U: 0.3 -----Radius total: -0.6 Bone mineral density baseline FRAX%s: The graph provided illustrates a 10.2% chance for a major osteoporotic fx and a 0.7% chance f or the hips probability for fx in 10 years time. IMPRESSION: Osteopenia (T Score between -2.5 and -1). There is slightly increased risk of fracture and the patient may be considered for treatment. Re-Screen 2-5 years. NOTE: T-SCORE=SD OF THE YOUNG ADULT MEAN. [facility], , 05/07/2024 8:27 AM
== END | disposition home or self-care (01) ==
LOC: RADMAMWWP 14:11
PROVIDERS: ATTEND Internal Medicine
DX: Z12.31 Encounter for screening mammogram for malignant neoplasm of breast (principal); R92.333 Mammographic heterogeneous density, bilateral breasts; E04.2 Nontoxic multinodular goiter; Z92.0 Personal history of contraception; Z78.0 Asymptomatic menopausal state
CPT/HCPCS: 76536; 77063; 77067; 77080

== ENCOUNTER 2024-07-03 15:16 | Inpatient (IN) | payer BC, MEDICARE ==
--- NOTE | 2024-07-03 16:20 | ED ---
General Adult HPI - General Chief complaint: Shortness of Breath Stated complaint: OLLIE Time Seen by Provider: 07/03/24 15:37 Source: patient Mode of arrival: wheelchair Limitations: no limitations - History of Present Illness Initial comments: Patient is 59-year-old female past medical history of tracheomalacia, asthma presents today for difficulty in breathing. Worsened over the last [address] Johnson, her pulmnologist, at the beginning of her symptoms, who did a chest x-ray and pt was started on prednisone. Symptoms have continued to wors en. She endorses a cough with thick green-hale sputum. This morning was blood- streaked. Does not usually wear oxygen at home. Denies fevers, endorses chills. Endorses intermittent headaches since having COVID in February. Endorses sore throat, runny nose. Endorses palpitations, denies chest pain. States that her grandchildren were over last week who had URI symptoms. - Related Data Home Medications Medication Instructions Recorded Confirmed Acetaminophen Tab [Tylenol] 1,000 mg PO Q6H PRN 10/22/23 07/03/24 Budesonide/Glycopyr/Formoterol 2 puff INHALATION RT-BID 10/22/23 07/03/24 [Breztri Aerosphere Inhaler] Docusate [Colace] 100 mg PO BID PRN 10/22/23 07/03/24 Tezepelumab-Ekko [Tezspire] 210 mg SQ Q28D 10/22/23 07/03/24 Albuterol Inhaler [Ventolin Hfa 2 puff INHALATION RT-QID PRN 10/23/23 07/03/24 Inhaler] Albuterol Nebulized [Ventolin 2.5 mg INHALATION RT-QID PRN 10/23/23 07/03/24 Nebulized] Furosemide [Lasix] 20 mg PO DAILY PRN 10/23/23 07/04/24 Gabapentin [Neurontin] 100 mg PO BID PRN 10/23/23 07/03/24 Ipratropium-Albuterol Nebulize 3 ml INHALATION RT-QID 10/23/23 07/04/24 [Duoneb 0.5 mg-3 mg/3 ml Soln] Montelukast [Singulair] 10 mg PO DAILY 10/23/23 07/03/24 Omeprazole 40 mg PO BID 10/23/23 07/04/24 guaiFENesin-Coden 100-10MG/5ML 5 ml PO Q6HR PRN 10/23/23 07/03/24 [Robitussin AC] Acetylcysteine [Mucomyst 20%] 800 mg INHALATION RT-BID PRN 07/03/24 07/04/24 Atorvastatin [Lipitor] 20 mg PO DAILY 07/03/24 07/03/24 Azelastine HCl [Astepro Allergy] 2 spr EA NOSTRIL BID 07/03/24 07/04/24 Benzocaine/Menthol Lozeng [Cepacol 1 lozenge MM Q2H PRN 07/03/24 07/03/24 lozenge] Benzocaine/Menthol [Cepacol Sore 1 spray MM QID PRN 07/03/24 07/03/24 Throat Lozenge] Calcium Carbonate [Tums] 1,000 - 2,000 mg PO QID PRN 07/03/24 07/03/24 Cetirizine HCl [Zyrtec] 10 mg PO DAILY PRN 07/03/24 07/03/24 Cholecalciferol [Vitamin D3 (125 125 mcg PO SA 07/03/24 07/03/24 Mcg = 5000 Iu)] Cyclobenzaprine [Flexeril] 10 mg PO TID PRN 07/03/24 07/03/24 Dextromethorphan Polistirex 30 mg PO Q12H PRN 07/03/24 07/03/24 [Delsym] Estrogens, Conjugated Cream 1 applic VAGINAL TUSA PRN 07/03/24 07/03/24 [Premarin Vaginal Cream] Fluticasone Nasal [place] [Flonase 1 spr EA NOSTRIL BID 07/03/24 07/03/24 Nasal [place]] Gabapentin [Neurontin] 100 mg PO DAILY 07/03/24 07/03/24 Gluten Digestive Enzymes 2 tab PO AC-TID PRN 07/03/24 07/03/24 Inulin/Chromium Picolinate [Fiber 1 tab PO BID PRN 07/03/24 07/03/24 Gummies Chew] L.acidoph,Paracasei, B.lactis 1 cap PO DAILY 07/03/24 07/03/24 [Probiotic] Metoprolol Succinate (ER) [Toprol 50 mg PO DAILY 07/03/24 07/04/24 Xl] Multivitamins, Thera [Multivitamin 1 tab PO DAILY 07/03/24 07/03/24 (formulary)] Nystatin 100,000 Unit/ml Susp 500,000 unit PO QID PRN 07/03/24 07/03/24 [Mycostatin Oral Susp] Sennosides 17.2 mg PO BID PRN 07/03/24 07/03/24 Sodium Chloride Nebulizer(Unknown 1 dose INHALATION DIRECTED PRN 07/03/24 07/03/24 Dose) Triamterene-Hctz 37.5-25Mg 1 tab PO DAILY 07/03/24 07/03/24 [Maxzide 37.5-25] Vitamin B Complex 1 cap PO DAILY 07/03/24 07/03/24 guaiFENesin [Mucinex] 1,200 mg PO BID PRN 07/03/24 07/03/24 predniSONE See Taper PO DAILY 07/03/24 07/03/24 Potassium Chloride ER [K-Dur 10] 10 meq PO BID PRN 07/04/24 07/04/24 Promethaz-Cod 6.25-10 mg/5 ml 10 ml PO QID PRN 07/04/24 07/04/24 [Phenergan with Codeine] Previous Rx's Medication Instructions Recorded HYDROcodone/APAP 10-325MG [[place] 1 tab PO Q6HR PRN #28 tab 10/26/23 10-325] Allergies Allergy/AdvReac Type Severity Reaction Status Date / Time cat dander Allergy eye Verified 07/03/24 19:58 swelling ciprofloxacin [From Cipro] Allergy Itching Verified 07/03/24 19:58 gluten Allergy Abdominal Verified 07/03/24 19:58 Pain/HEADACHES, constipation NSAIDS (Non-Steroidal AdvReac Abdominal Verified 07/03/24 19:58 Anti-Inflamma Pain shellfish derived [Shellfish] AdvReac Vomiting Verified 07/03/24 19:58 Review of Systems ROS Statement: Those systems with pertinent positive or pertinent negative responses have been documented in the HPI. ROS Other: All systems not noted in ROS Statement are negative. Past Medical History Past Medical History: Asthma, Chest Pain / Angina, COPD, GERD/Reflux, Hyperlipidemia, Hypertension, Musculoskeletal Disorder, Osteoarthritis (OA), Pn eumonia, Sleep Apnea/CPAP/BIPAP, Thyroid Disorder Additional Past Medical History / Comment(s): Diet Controlled Diabetes (pre- diabetic), prone to hypoglycemia. Episodes of lightheadedness and near syncope. Severe tracheobronchomalacia. 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 Occasional tachycardia especially when eating and with activity, controlled with Metoprolol. CPAP use. Thyroid nodules. Spinal stenosis. Vitamin D Deficiency, Iron Deficiency Anemia, low potassium with HCTZ on potassium now. Migraines. Bruises easily. Oxygen at 2-3 liters at hs and PRN. POTS syndrome. Mild sliding hiatal hernia. Bronchiectasis. treachealmyalgia History of Any Multi-Drug Resistant Organisms: None Reported Date of last positivie culture/infection: 03/2018 MDRO Source:: Lung Past Surgical History: Appendectomy, Back Surgery, Bariatric Surgery, Section, Cholecystectomy, Heart Catheterization, Hysterectomy, Orthopedic Surgery, Tonsillectomy Additional Past Surgical History / Comment(s): Gastric sleeve with hiatal hernia repair, spinal fusion/decompression L4-L5 and S1, bilateral shoulder arthroscopies, 3 laparotomies due to pain/ovarian cyst/adhesions, D&Cs X2 after miscarriages, lipoma removed from left side of back, colonoscopy, EGD's, tracheal stent removal X3, trachealbronchoplasty, tracheal resection 11/17. Past Anesthesia/Blood Transfusion Reactions: Previous Problems w/ Anesthesia, Motion Sickness, Postoperative Nausea & Vomiting (PONV) Additional Past Anesthesia/Blood Transfusion Reaction / Comment(s): Difficult IV start, difficult intubation("weak airway") - states they use airway band, states occasional memory issues after anesthesia. Past Psychological History: Anxiety, Depression Smoking Status: Never smoker Past Alcohol Use History: None Reported Past Drug Use History: None Reported - Past Family History Father Family Medical History: Cancer Additional Family Medical History / Comment(s): . Mother Family Medical History: Cancer Additional Family Medical History / Comment(s): . Brother(s) Family Medical History: Pulmonary Embolus General Exam - General Exam Comments Initial Comments: PE: CONSTITUTIONAL: Mild distress, ill appearing, nontoxic SKIN: Warm, dry, no jaundice, hives or petechiae EYES: Pupils are equally round, extraocular movements intact without nystagmus, clear conjunctiva, non-icteric sclera HENT: Normocephalic, atraumatic, moist mucus membranes, oropharynx clear without exudates, no tonsillar swelling, exudates or erythema NECK: , Full range of motion, normal appearance, no cervical adenopathy PULMONARY: Decreased excursion, poor air movement, scant expiratory wheeze, R>L, rales right lung field, no stridor, no accessory muscle use CARDIOVASCULAR: Regular rate, rhythm, normal S1 and S2. No appreciated murmurs, rubs or gallops. Strong radial pulses with intact distal perfusion. No lower ex tremity edema GASTROINTESTINAL: Soft, active bowel sounds throughout, non-tender, non- distended, no palpable masses, no rebound or guarding. No hepatosplenomegaly MUSCULOSKELETAL: Extremities have no gross deformity, no edema, redness, or swelling. No calf swelling NEUROLOGIC:_a/o x 3, GCS 15, normal mentation and speech. Moves all extremities x 4 without motor or sensory deficit PSYCHIATRIC:_normal mood and affect, thought process is clear and linear Limitations: no limitations Course Vital Signs 07/03/24 07/03/24 07/03/24 15:29 16:23 16:33 Temperature 97.9 F Pulse Rate 92 92 79 Pulse Rate [ Pulse Oximetery ] Respiratory 20 24 Rate Blood Pressure 143/88 117/93 Blood Pressure [Right Arm] O2 Sat by Pulse 98 98 Oximetry Fraction of Inspired Oxygen (FIO2) 07/03/24 07/03/24 07/03/24 16:45 17:00 17:40 Temperature Pulse Rate 96 100 100 Pulse Rate [ Pulse Oximetery ] Respiratory Rate Blood Pressure Blood Pressure [Right Arm] O2 Sat by Pulse Oximetry Fraction of Inspired Oxygen (FIO2) 07/03/24 07/03/24 07/03/24 17:57 18:48 19:17 Temperature Pulse Rate 108 H 105 H Pulse Rate [ Pulse Oximetery ] Respiratory 20 18 Rate Blood Pressure 135/72 126/75 Blood Pressure [Right Arm] O2 Sat by Pulse 97 99 Oximetry Fraction of 40 Inspired Oxygen (FIO2) 07/03/24 07/03/24 07/03/24 19:42 20:06 20:11 Temperature Pulse Rate 101 H Pulse Rate [ 96 Pulse Oximetery ] Respiratory 24 Rate Blood Pressure Blood Pressure [Right Arm] O2 Sat by Pulse 94 L Oximetry Fraction of 40 Inspired Oxygen (FIO2) 07/03/24 07/03/24 07/03/24 20:14 20:21 20:28 Temperature Pulse Rate 112 H 112 H Pulse Rate [ Pulse Oximetery ] Respiratory 20 Rate Blood Pressure 123/70 Blood Pressure [Right Arm] O2 Sat by Pulse 97 97 Oximetry Fraction of Inspired Oxygen (FIO2) 07/03/24 07/03/24 07/03/24 21:16 21:23 23:36 Temperature Pulse Rate 114 H 87 Pulse Rate [ Pulse Oximetery ] Respiratory 20 18 Rate Blood Pressure 129/70 112/67 Blood Pressure [Right Arm] O2 Sat by Pulse 98 98 Oximetry Fraction of 40 Inspired Oxygen (FIO2) 07/04/24 07/04/24 07/04/24 00:00 02:00 02:33 Temperature 98.4 F Pulse Rate 85 Pulse Rate [ 96 86 Pulse Oximetery ] Respiratory 24 24 Rate Blood Pressure Blood Pressure 108/75 [Right Arm] O2 Sat by Pulse 95 Oximetry Fraction of Inspired Oxygen (FIO2) 07/04/24 07/04/24 07/04/24 02:34 02:42 04:00 Temperature 98.4 F Pulse Rate 84 Pulse Rate [ 86 Pulse Oximetery ] Respiratory 24 Rate Blood Pressure Blood Pressure 126/78 [Right Arm] O2 Sat by Pulse 98 Oximetry Fraction of 40 40 Inspired Oxygen (FIO2) 07/04/24 07/04/24 07/04/24 06:18 07:54 08:02 Temperature Pulse Rate 88 86 Pulse Rate [ 94 Pulse Oximetery ] Respiratory 24 Rate Blood Pressure Blood Pressure 118/71 [Right Arm] O2 Sat by Pulse 97 Oximetry Fraction of Inspired Oxygen (FIO2) 07/04/24 07/04/24 07/04/24 08:56 10:29 11:36 Temperature 97.9 F Pulse Rate 98 100 98 Pulse Rate [ Pulse Oximetery ] Respiratory 26 H 30 H Rate Blood Pressure 123/83 120/71 Blood Pressure [Right Arm] O2 Sat by Pulse 96 98 Oximetry Fraction of 40 Inspired Oxygen (FIO2) 07/04/24 07/04/24 07/04/24 11:47 12:00 14:00 Temperature 98.7 F Pulse Rate 100 Pulse Rate [ 87 Pulse Oximetery ] Respiratory 21 24 Rate Blood Pressure Blood Pressure 116/68 [Right Arm] O2 Sat by Pulse Oximetry Fraction of 40 Inspired Oxygen (FIO2) 07/04/24 15:11 Temperature Pulse Rate 104 H Pulse Rate [ Pulse Oximetery ] Respiratory Rate Blood Pressure Blood Pressure [Right Arm] O2 Sat by Pulse Oximetry Fraction of 40 Inspired Oxygen (FIO2) EKG Findings - EKG Comments: EKG Findings:: Sinus rhythm, rate 87 bpm intervals within acceptable limits, normal axis, T wave inversion lead V1 through V3, no significant ST elevations or depressions no arrhythmia Medical Decision Making - Medical Decision Making Was pt. sent in by a medical professional or institution (, PA, DESKIDDING MACHINE OPERATOR, urgent care, hospital, or group home...) When possible be specific @ -No Did you speak to anyone other than the patient for history (EMS, parent, family, police, friend...)? What history was obtained from this source @ -No Did you review nursing and triage notes (agree or disagree)? Why? @ -I reviewed nursing and triage notes Were old charts reviewed (outside hosp., previous admission, EMS record, old EKG, old radiological studies, urgent care reports/EKG's, group home records)? Report findings @ -Medical records reviewed Differential Diagnosis (chest pain, altered mental status, abdominal pain women, abdominal pain men, vaginal bleeding, weakness, fever, dyspnea, syncope, headache, dizziness, GI bleed, back pain, seizure, CVA, palpatations, mental health, musculoskeletal)? @ -Differential Dyspnea: Coronary syndrome, arrhythmia, tamponade, asthma, COPD, pulmonary embolism, pneumonia, pneumothorax, pulmonary effusion, anaphylaxis, diabetic ketoacidosis, flailed chest, pulmonary contusion, diaphragmatic rupture, anemia, neuromuscular, this is not meant to be an all-inclusive list. EKG interpreted by me (3pts min.). @ -As above X-rays interpreted by me (1pt min.). @Personally reviewed chest x-ray, I see a right perihilar infiltrate concerning for pneumonia I agree with radiologist interpretation CT interpreted by me (1pt min.). Personally reviewed CT chest, I see no evidence of PE, I agree with radiologist interpretation U/S interpreted by me (1pt. min.). @ -None done What testing was considered but not performed or refused? (CT, X-rays, U/S, labs)? Why? @ -None What meds were considered but not given or refused? Why? @ -None Did you discuss the management of the patient with other professionals (professionals i.e. DrLeticia, PA, DESKIDDING MACHINE OPERATOR, lab, RT, psych nurse, child welfare social worker, hot metal mixer operator helper, teacher, seaman officer, case mgr)? Give summary @ -No Was smoking cessation discussed for >3mins.? @ -No Was critical care preformed (if so, how long)? Yes 45 minutes Were there social determinants of health that impacted care today? How? (Homelessness, low income, unemployed, alcoholism, drug addiction, t ransportation, low edu. Level, literacy, decrease access to med. care, nursing home, rehab)? @ -No Was there de-escalation of care discussed even if they declined (Discuss DNR or withdrawal of care, Hospice)? @ -No What co-morbidities impacted this encounter? (DM, HTN, Smoking, COPD, CAD, Cancer, CVA, ARF, Chemo, Hep., AIDS, mental health diagnosis, sleep apnea, morbid obesity)? @ Asthma, tracheomalacia Was patient admitted / discharged? Hospital course, mention meds given and route, prescriptions, significant lab abnormalities, going to OR and other pertinent info. @Admission-this is a pleasant 59-year-old female past medical history of tracheomalacia, asthma presenting today for shortness of breath. On my assessment patient is tachypneic, with conversational dyspnea. Decreased excursion. Questionable scant wheezes though very poor air movement bilaterally. No lower extremity edema. Discussed with patient plan for DuoNebs, steroids, BiPAP application, chest x-ray, CT PE study, comprehensive labs. Patient agreeable with plan of care. Chest x-ray is consistent with pneumonia. Rocephin, azithromycin, was ordered. Labs showed mild leukocytosis. On reassessment pt appears much more comfortable on cpap. On repeat auscultation of lungs, air movement has improved, improved excursion. Updated to findings and anticipated admission, to which pt was agreeable. Case discussed with Dr. Menchaca, who kindly accepted pt for admission. Undiagnosed new problem with uncertain prognosis? @ -No Drug Therapy requiring intensive monitoring for toxicity (Heparin, Nitro, Insulin, Cardizem)? @ -No Were any procedures done? @ -No Diagnosis/symptom? @Acute hypoxic respiratory failure, asthma exacerbation, community acquired pneumonia Acute, or Chronic, or Acute on Chronic? @ -acute Uncomplicated (without systemic symptoms) or Complicated (systemic symptoms)? complicated Side effects of treatment? @ -No Exacerbation, Progression, or Severe Exacerbation? @asthma exacerbation Poses a threat to life or bodily function? How? (Chest pain, [place], [place], pneumonia, PE, COPD, DKA, ARF, appy, cholecystitis, CVA, Diverticulitis, Homicidal, Suicidal, threat to staff... and all critical care pts) @ Yes - Lab Data Result diagrams: 07/04/24 06:14 07/04/24 06:14 Lab Results 07/03/24 07/03/24 07/03/24 Range/Units 16:26 16:26 16:26 WBC 13.02 H (4.50-10.00) 10*3/uL RBC 4.84 (4.10-5.20) 10*6/uL Hgb 12.9 (12.0-15.0) g/dL Hct 39.1 (37.2-46.3) % MCV 80.8 (80.0-97.0) fL MCH 26.7 L (27.0-32.0) pg MCHC 33.0 (32.0-37.0) g/dL Plt Count 298 (140-440) 10*3/uL MPV 10.6 (9.5-12.2) fL Immature Gran % (Auto) 0.5 % Neutrophils % 90.1 % Lymphocytes % 6.7 % Monocytes % 2.5 % Eosinophils % 0.0 % Basophils % 0.2 % Immature Gran # 0.07 H (0.00-0.04) 10*3/uL Neutrophils # 11.73 H (1.80-7.70) 10*3/uL Lymphocytes # 0.87 L (0.90-5.00) 10*3/uL Monocytes # 0.33 (0.20-1.00) 10*3/uL Eosinophils # 0.00 L (0.04-0.35) 10*3/uL Basophils # 0.02 (0.00-0.10) 10*3/uL PT 10.2 (10.0-12.5) sec INR 0.9 (<1.2) APTT 23.1 (22.0-30.0) sec Sodium 138 (137-145) mmol/L Potassium 3.6 (3.5-5.1) mmol/L Chloride 96 L (98-107) mmol/L Carbon Dioxide 27 (22-30) mmol/L Anion Gap 15 mmol/L BUN 16 (7-17) mg/dL Creatinine 0.68 (0.52-1.04) mg/dL Est GFR (CKD-EPI)AfAm >90 (>60 ml/min/1.73 sqM) Est GFR (CKD-EPI)NonAf >90 (>60 ml/min/1.73 sqM) Glucose 129 H (74-99) mg/dL Calcium 10.4 H (8.4-10.2) mg/dL Total Bilirubin 0.4 (0.2-1.3) mg/dL AST 35 (14-36) U/L ALT 41 H (4-34) U/L Alkaline Phosphatase 78 (38-126) U/L Troponin I (0.000-0.034) ng/mL NT-Pro-B Natriuret Pep 160 pg/mL Total Protein 7.9 (6.3-8.2) g/dL Albumin 4.9 (3.5-5.0) g/dL Procalcitonin (0.02-0.50) ng/mL Influenza Type A (PCR) (Not Detectd) Influenza Type B (PCR) (Not Detectd) RSV (PCR) (Not Detectd) SARS-CoV-2 (PCR) (Not Detectd) 07/03/24 07/03/24 07/03/24 Range/Units 16:26 16:26 16:26 WBC (4.50-10.00) 10*3/uL RBC (4.10-5.20) 10*6/uL Hgb (12.0-15.0) g/dL Hct (37.2-46.3) % MCV (80.0-97.0) fL MCH (27.0-32.0) pg MCHC (32.0-37.0) g/dL Plt Count (140-440) 10*3/uL MPV (9.5-12.2) fL Immature Gran % (Auto) % Neutrophils % % Lymphocytes % % Monocytes % % Eosinophils % % Basophils % % Immature Gran # (0.00-0.04) 10*3/uL Neutrophils # (1.80-7.70) 10*3/uL Lymphocytes # (0.90-5.00) 10*3/uL Monocytes # (0.20-1.00) 10*3/uL Eosinophils # (0.04-0.35) 10*3/uL Basophils # (0.00-0.10) 10*3/uL PT (10.0-12.5) sec INR (<1.2) APTT (22.0-30.0) sec Sodium (137-145) mmol/L Potassium (3.5-5.1) mmol/L Chloride (98-107) mmol/L Carbon Dioxide (22-30) mmol/L Anion Gap mmol/L BUN (7-17) mg/dL Creatinine (0.52-1.04) mg/dL Est GFR (CKD-EPI)AfAm (>60 ml/min/1.73 sqM) Est GFR (CKD-EPI)NonAf (>60 ml/min/1.73 sqM) Glucose (74-99) mg/dL Calcium (8.4-10.2) mg/dL Total Bilirubin (0.2-1.3) mg/dL AST (14-36) U/L ALT (4-34) U/L Alkaline Phosphatase (38-126) U/L Troponin I <0.012 (0.000-0.034) ng/mL NT-Pro-B Natriuret Pep pg/mL Total Protein (6.3-8.2) g/dL Albumin (3.5-5.0) g/dL Procalcitonin <0.20 (0.02-0.50) ng/mL Influenza Type A (PCR) Not Detected (Not Detectd) Influenza Type B (PCR) Not Detected (Not Detectd) RSV (PCR) Not Detected (Not Detectd) SARS-CoV-2 (PCR) Not Detected (Not Detectd) Disposition Clinical Impression: Acute hypoxic respiratory failure, Asthma exacerbation, Community acquired pneumonia Disposition: ADMITTED IP TO THIS HOSP Condition: Stable
[2024-07-03] MEDS: ALBUTEROL NEBULIZED 2.5 MG/3 ML INHALATION STA ×2 (16:22→16:34)
[2024-07-03] MEDS: IPRATROPIUM 0.5 MG/2.5 ML NEBU INHALATION STA (16:23)
[2024-07-03] MEDS: DEXAMETHASONE SOD PHOSPHATE 10 MG/ML 1 ML VIAL IVP STA (16:30)
[2024-07-03 16:41] LABS: Basophils # (A) 0.02 10*3/uL (0.00-0.10); Basophils % (A) 0.2 %; HCT 39.1 % (37.2-46.3); HGB 12.9 g/dL (12.0-15.0); Lymphocytes # (A) 0.87 10*3/uL (0.90-5.00); Lymphocytes % (A) 6.7 %; MCH 26.7 pg (27.0-32.0); MCV 80.8 fL (80.0-97.0); Mean Platelet Volume 10.6 fL (9.5-12.2); Monocytes # (A) 0.33 10*3/uL (0.20-1.00); Monocytes % (A) 2.5 %; Neutrophils # (A) 11.73 10*3/uL (1.80-7.70); Neutrophils % (A) 90.1 %; Platelet Count 298 10*3/uL (140-440); RBC 4.84 10*6/uL (4.10-5.20); RDW 14.8 % (11.5-14.5); WBC 13.02 10*3/uL (4.50-10.00)
[2024-07-03 16:50] LABS: ALT 41 U/L (4-34); AST 35 U/L (14-36); African American GFR (CKD) >90 (>60 ml/min/1.73 sqM); Albumin 4.9 g/dL (3.5-5.0); Alkaline Phosphatase 78 U/L (38-126); Anion Gap 15 mmol/L; Blood Urea Nitrogen 16 mg/dL (7-17); Calcium 10.4 mg/dL (8.4-10.2); Carbon Dioxide 27 mmol/L (22-30); Chloride 96 mmol/L (98-107); Glucose 129 mg/dL (74-99); Non-African American GFR(CKD) >90 (>60 ml/min/1.73 sqM); Potassium 3.6 mmol/L (3.5-5.1); Sodium 138 mmol/L (137-145); Total Bilirubin 0.4 mg/dL (0.2-1.3); Total Protein 7.9 g/dL (6.3-8.2)
[2024-07-03 16:55] LABS: INR 0.9 (<1.2); Partial Thromboplastin Time 23.1 sec (22.0-30.0); Prothrombin Time 10.2 sec (10.0-12.5)
[2024-07-03 16:58] LABS: NT-Pro-B-Type Natriuretic Pept 160 pg/mL
--- NOTE | 2024-07-03 16:58 | XR ---
EXAMINATION TYPE: XR chest 1V portable DATE OF EXAM: 07/03/2024 4:38 PM COMPARISON: 07/19/2029 CLINICAL INDICATION: Female, 59 years old with history of OLLIE, hx asthma, tracheomalacia, TECHNIQUE: XR chest 1V portable view(s) obtained. FINDINGS: The heart size is normal. The pulmonary vasculature is normal. Mild infiltration of the right base. Correlate for atelectasis or pneumonia. Simulator lead is in th e midline IMPRESSION: 1. Mild infiltrate right base. Correlate for subsegmental atelectasis or developing pneumonia [facility], Workstation: [id number], 07/03/2024 4:56 PM
[2024-07-03 17:17] LABS: Influenza A Not Detected (Not Detectd); Influenza B Not Detected (Not Detectd); RSV Not Detected (Not Detectd)
[2024-07-03] MEDS: AZITHROMYCIN 500 MG in SODIUM CHLORIDE 0.9% 250 ML IVPB STA (17:36)
[2024-07-03] MEDS: ACETAMINOPHEN TAB 500 MG TAB PO STA (17:55)
--- NOTE | 2024-07-03 18:24 | CT ---
EXAMINATION TYPE: CT chest angio for PE DATE OF EXAM: 07/03/2024 6:15 PM COMPARISON: None. CLINICAL INDICATION: Female, 59 years old with history of OLLIE, hemoptysis, DIFFICULTY BREATHING, TECHNIQUE: CT of the chest is performed on a spiral scan at 2 mm thick sections. Study is performed with intravenous contrast timed for evaluation for pulmonary embolism. This will limit additional po rtions of the evaluation. 10mm MIP images reconstructed by the technologist are reviewed on the comp uter in the coronal and sagittal planes. Contrast used:100 mL of Isovue 370 with IV Contrast, (none if empty) Oral contrast used: (none if empty) CT DLP: 505.4 mGycm, Automated exposure control for dose reduction was used. FINDINGS: No persistent filling defects are evident to suggest an acute pulmonary embolism. No mediastinal or hilar adenopathy enlarged by CT criteria is evident. The ascending aorta diameter at the level of the main pulmonary artery is 3.5 cm. The main pulmonary artery diameter at the bifurcation is 2.1 cm. Lung windows are clear. No significant coronary artery calcifications. Limited CT sections were through the upper abdomen. Upper abdomen appears unremarkable. There may be some asymmetry at the right vocal cord. This could be debris. Direct visualization however is recomm ended. Stimulator leads within lower thoracic spinal canal IMPRESSION: 1. No acute pulmonary embolism. 2. No acute pulmonary process. 3. Some mild asymmetry of the right vocal cord. Direct visualization recommended. [facility], Workstation: [facility], 07/03/2024 6:22 PM
[2024-07-03] MEDS ORDERED: PNEUMONIA PROTOCOL UTILIZED 1 EACH MISC PO PRN (19:03)
[2024-07-03] MEDS: IPRATROPIUM-ALBUTEROL 3 ML NEB INHALATION SCH (20:04)
[2024-07-03] MEDS: PIPERACILLIN-TAZOBACTAM 3.375 GM in SODIUM CHLORIDE 0.9% 100 ML IVPB STA (20:13)
[2024-07-03] MEDS: SODIUM CHLORIDE 0.9% 1,000 ML IV SCH (20:18)
[2024-07-03] MEDS: LACTATED RINGERS 1,000 ML IV ONE (20:27)
[2024-07-03] MEDS ORDERED: ESTROGENS, CONJUGATED 0.625 MG/GM VAGINAL CREAM 42.5 GM TUBE VAGINAL PRN (21:17)
[2024-07-03] MEDS ORDERED: SENNOSIDES 8.6 MG TAB PO PRN (21:17)
--- NOTE | 2024-07-03 21:29 | P.HPIM ---
History of Present Illness H&P Date: 07/03/24 History of present illness; Patient is 59-year-old female past medical history of tracheomalacia, asthma presents today for shortness of breath. Patient states that her shortness of breath has progressively worsened over the last week, particularly over the last 3 days. She does endorse seeing pulmonology, and has been taking prednisone taper last week which she has now finished, and had chest x-ray done without signs of pneumonia. During this time she endorses a cough with thick green-hale sputum. This morning was blood-streaked. She wears oxygen at home intermittently 2 to 3 L as needed during the day and 4 L with CPAP at night. She does endorse some chills, without fever. She also has sore throat, runny nose which she attributes to worsening allergies over the last week. She also endorses palpitations, which are typically controlled with metoprolol however worse over this time period as well. Spoke with the ER physician, patient admission was accepted by internal medicine service for treatment. REVIEW OF SYSTEMS: Pertinent positives and negatives noted in HPI. PHYSICAL EXAMINATION: Vitals reviewed GENERAL: mild distress. Obese. EYES: PERRL, no scleral injection or icterus. No vision loss HENT: Normocephalic, atraumatic, hearing grossly intact, moist mucous membranes NECK: No tracheal deviation, full range of motion. CARDIOVASCULAR: S1 and S2 present. No murmurs, rubs, or gallops. PULMONARY: Distant breath sounds, Stridor, egophony, with some wheezing bilat erally ABDOMEN: Soft, nontender, nondistended. No palpable organomegaly. MUSCULOSKELETAL: No apparent joint swelling and deformities. EXTREMITIES: No apparent cyanosis, clubbing. No pedal edema. NEUROLOGICAL: Alert and oriented. Gross neurological examination with no apparent focal deficits. SKIN: No apparent rashes. ER FINDINGS: Labs significant for WBC 13.0, glucose 129, ALT 41, troponin negative, proBNP 165, viral respiratory panel was negative EKG independently interpreted showed sinus heart rate of 87, QTc 442, no ST segment elevation or depression seen, nonspecific T wave abnormality V3 and V4 Chest x-ray done independently interpreted showed mild infiltrate right base CT angiogram of chest findings of no acute pulmonary embolism, no acute pulmonary process, mild asymmetry right vocal cord. Assessment and Plan: In summary, Patient is 59-year-old female past medical history of tracheomalacia, asthma presents today for shortness of breath. # Sepsis due to pneumonia versus bacterial bronchitis, unspecified organism #Acute on chronic hypoxemic respiratory failure #History of tracheomalacia and bronchiectasis #Asthama/COPD exacerbation Respiratory rate 24, pulse 108, WBC 13 - CXR findings of mild infiltrate right base - Blood and sputum cultures ordered, Legionella ordered - Viral respiratory panel negative Procalcitonin ordered - Continue IV Azithromycin 500 mg, Given IV Ceftriaxone 2g once Continue Zosyn 3.375 g every 8 hours - begin DuoNebs 3 mL 4 times daily and every 4 hour as needed, Symbicort 160-4.5 2 puffs twice daily - Begin Solu-medrol 40 mg IV every 8 hours Continue IV fluids - Give supplemental O2 via NC goal of >92% spO2, transition to BiPAP if worsening - continuous pulse ox. and telemetry - encourage incentive spirometry Pulmonology consulted - ENT consulted Chronic Medical Conditions: Asthma COPD GERD Hyperlipidemia Hypertension Sleep apnea on CPAP Hypothyroidism Diet controlled diabetes Resume home medications when verified DVT ppx: Subq Lovenox 40 meq daily Code status: Full code F: IV Normal saline 100 mL/hr E: Replete as needed N: Regular diet A: Ambulatory Anticipated discharge place: Home Anticipated discharge time: >2 days Dictation was produced using [employer] dictation software. Please excuse any grammatical, word or spelling errors. Past Medical History Past Medical History: Asthma, Chest Pain / Angina, COPD, GERD/Reflux, Hyperlipidemia, Hypertension, Musculoskeletal Disorder, Osteoarthritis (OA), Pneumonia, Sleep Apnea/CPAP/BIPAP, Thyroid Disorder Additional Past Medical History / Comment(s): Diet Controlled Diabetes (pre- diabetic), prone to hypoglycemia. Episodes of lightheadedness and near syncope. Severe tracheobronchomalacia. 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 O ccasional tachycardia especially when eating and with activity, controlled with Metoprolol. CPAP use. Thyroid nodules. Spinal stenosis. Vitamin D Deficiency, Iron Deficiency Anemia, low potassium with HCTZ on potassium now. Migraines. Bruises easily. Oxygen at 2-3 liters at hs and PRN. POTS syndrome. Mild sliding hiatal hernia. Bronchiectasis. treachealmyalgia History of Any Multi-Drug Resistant Organisms: None Reported Date of last positivie culture/infection: 03/2018 MDRO Source:: Lung Past Surgical History: Appendectomy, Back Surgery, Bariatric Surgery, Section, Cholecystectomy, Heart Catheterization, Hysterectomy, Orthopedic Surgery, Tonsillectomy Additional Past Surgical History / Comment(s): Gastric sleeve with hiatal hernia repair, spinal fusion/decompression L4-L5 and S1, bilateral shoulder arthroscopies, 3 laparotomies due to pain/ovarian cyst/adhesions, D&Cs X2 after miscarriages, lipoma removed from left side of back, colonoscopy, EGD's, trac heal stent removal X3, trachealbronchoplasty, tracheal resection 11/17. Past Anesthesia/Blood Transfusion Reactions: Previous Problems w/ Anesthesia, Motion Sickness, Postoperative Nausea & Vomiting (PONV) Additional Past Anesthesia/Blood Transfusion Reaction / Comment(s): Difficult IV start, difficult intubation("weak airway") - states they use airway band, states occasional memory issues after anesthesia. Past Psychological History: Anxiety, Depression Smoking Status: Never smoker Past Alcohol Use History: None Reported Past Drug Use History: None Reported - Past Family History Father Family Medical History: Cancer Additional Family Medical History / Comment(s): . Mother Family Medical History: Cancer Additional Family Medical History / Comment(s): . Brother(s) Family Medical History: Pulmonary Embolus Medications and Allergies Home Medications Medication Instructions Recorded Confirmed Type Acetaminophen Tab [Tylenol] 1,000 mg PO Q6H PRN 10/22/23 07/03/24 History Budesonide/Glycopyr/Formoterol 2 puff INHALATION RT-BID 10/22/23 07/03/24 History [Breztri Aerosphere Inhaler] Docusate [Colace] 100 mg PO BID PRN 10/22/23 07/03/24 History Tezepelumab-Ekko [Tezspire] 210 mg SQ Q28D 10/22/23 07/03/24 History Albuterol Inhaler [Ventolin Hfa 2 puff INHALATION RT-QID PRN 10/23/23 07/03/24 History Inhaler] Albuterol Nebulized [Ventolin 2.5 mg INHALATION RT-QID PRN 10/23/23 07/03/24 History Nebulized] Furosemide [Lasix] 20 mg PO DIRECTED PRN 10/23/23 07/03/24 History Gabapentin [Neurontin] 100 mg PO BID PRN 10/23/23 07/03/24 History Ipratropium-Albuterol Nebulize 3 ml INHALATION DIRECTED 10/23/23 07/03/24 History [Duoneb 0.5 mg-3 mg/3 ml Soln] Montelukast [Singulair] 10 mg PO DAILY 10/23/23 07/03/24 History Omeprazole 40 mg PO DIRECTED 10/23/23 07/03/24 History guaiFENesin-Coden 100-10MG/5ML 5 ml PO Q6HR PRN 10/23/23 07/03/24 History [Robitussin AC] HYDROcodone/APAP 10-325MG [[place] 1 tab PO Q6HR PRN #28 tab 10/26/23 07/03/24 Rx 10-325] Acetylcysteine [Mucomyst 20%] 1 dose INHALATION DIRECTED PRN 07/03/24 07/03/24 History Atorvastatin [Lipitor] 20 mg PO DAILY 07/03/24 07/03/24 History Azelastine HCl [Astepro Allergy] 2 spr EA NOSTRIL DIRECTED 07/03/24 07/03/24 History Benzocaine/Menthol Lozeng [Cepacol 1 lozenge MM Q2H PRN 07/03/24 07/03/24 History lozenge] Benzocaine/Menthol [Cepacol Sore 1 spray MM QID PRN 07/03/24 07/03/24 History Throat Lozenge] Calcium Carbonate [Tums] 1,000 - 2,000 mg PO QID PRN 07/03/24 07/03/24 History Cetirizine HCl [Zyrtec] 10 mg PO DAILY PRN 07/03/24 07/03/24 History Cholecalciferol [Vitamin D3 (125 125 mcg PO SA 07/03/24 07/03/24 History Mcg = 5000 Iu)] Cyclobenzaprine [Flexeril] 10 mg PO TID PRN 07/03/24 07/03/24 History Dextromethorphan Polistirex 30 mg PO Q12H PRN 07/03/24 07/03/24 History [Delsym] Estrogens, Conjugated Cream 1 applic VAGINAL TUSA PRN 07/03/24 07/03/24 History [Premarin Vaginal Cream] Fluticasone Nasal [place] [Flonase 1 spr EA NOSTRIL BID 07/03/24 07/03/24 History Nasal [place]] Gabapentin [Neurontin] 100 mg PO DAILY 07/03/24 07/03/24 History Gluten Digestive Enzymes 2 tab PO AC-TID PRN 07/03/24 07/03/24 History Inulin/Chromium Picolinate [Fiber 1 tab PO BID PRN 07/03/24 07/03/24 History Gummies Chew] L.acidoph,Paracasei, B.lactis 1 cap PO DAILY 07/03/24 07/03/24 History [Probiotic] Metoprolol Succinate (ER) [Toprol 50 mg PO DIRECTED 07/03/24 07/03/24 History Xl] Multivitamins, Thera [Multivitamin 1 tab PO DAILY 07/03/24 07/03/24 History (formulary)] Nystatin 100,000 Unit/ml Susp 500,000 unit PO QID PRN 07/03/24 07/03/24 History [Mycostatin Oral Susp] Potassium Chloride ER [K-Dur 20] 20 meq PO DIRECTED PRN 07/03/24 07/03/24 History Promethazine HCl [Phenergan Syrup] 12.5 mg PO DIRECTED PRN 07/03/24 07/03/24 History Sennosides 17.2 mg PO BID PRN 07/03/24 07/03/24 History Sodium Chloride Nebulizer(Unknown 1 dose INHALATION DIRECTED PRN 07/03/24 History Dose) Triamterene-Hctz 37.5-25Mg 1 tab PO DAILY 07/03/24 07/03/24 History [Maxzide 37.5-25] Vitamin B Complex 1 cap PO DAILY 07/03/24 07/03/24 History guaiFENesin [Mucinex] 1,200 mg PO BID PRN 07/03/24 07/03/24 History predniSONE See Taper PO DAILY 07/03/24 07/03/24 History Allergies Allergy/AdvReac Type Severity Reaction Status Date / Time cat dander Allergy eye Verified 07/03/24 19:58 swelling ciprofloxacin [From Cipro] Allergy Itching Verified 07/03/24 19:58 gluten Allergy Abdominal Verified 07/03/24 19:58 Pain/HEADACHES, constipation NSAIDS (Non-Steroidal AdvReac Abdominal Verified 07/03/24 19:58 Anti-Inflamma Pain shellfish derived [Shellfish] AdvReac Vomiting Verified 07/03/24 19:58 Physical Exam Osteopathic Statement: *. No significant issues noted on an osteopathic structural exam other than those noted in the History and Physical/Consult. Vitals: Vital Signs Temp Pulse Resp BP Pulse Ox FiO2 07/03/24 19:17 105 H 18 126/75 99 07/03/24 18:48 108 H 20 135/72 97 07/03/24 17:57 40 07/03/24 17:40 100 07/03/24 17:00 100 07/03/24 16:45 96 07/03/24 16:33 79 24 117/93 98 07/03/24 16:23 92 07/03/24 15:29 97.9 F 92 20 143/88 98 Intake and Output 07/03/24 07/03/24 07/03/24 06:59 14:59 22:59 Other: Weight 103.419 kg Results CBC & Chem 7: 07/03/24 16:26 07/03/24 16:26 Labs: Abnormal Lab Results - Last 24 Hours (Table) 07/03/24 07/03/24 Range/Units 16:26 16:26 WBC 13.02 H (4.50-10.00) 10*3/uL MCH 26.7 L (27.0-32.0) pg Immature Gran # 0.07 H (0.00-0.04) 10*3/uL Neutrophils # 11.73 H (1.80-7.70) 10*3/uL Lymphocytes # 0.87 L (0.90-5.00) 10*3/uL Eosinophils # 0.00 L (0.04-0.35) 10*3/uL Chloride 96 L (98-107) mmol/L Glucose 129 H (74-99) mg/dL Calcium 10.4 H (8.4-10.2) mg/dL ALT 41 H (4-34) U/L
[2024-07-04] MEDS: PIPERACILLIN-TAZOBACTAM 3.375 GM in SODIUM CHLORIDE 0.9% 100 ML IVPB SCH (00:34)
[2024-07-04] MEDS: methylPREDNISolone SOD SUCCI 40 MG/ML 1 ML VIAL IV SCH (00:34)
[2024-07-04] MEDS: ACETAMINOPHEN TAB 325 MG TAB PO PRN (00:45)
[2024-07-04] MEDS: guaiFENesin-DM 100-10MG/5ML 10 ML CUP PO PRN (01:08)
[2024-07-04] MEDS: IPRATROPIUM-ALBUTEROL 3 ML NEB INHALATION PRN (02:32)
[2024-07-04 06:10] LABS: Glucose,Whole Blood 304 mg/dL (70-110)
[2024-07-04] MEDS ORDERED: DEXTROSE 50% SYRINGE 50 ML IVP PRN ×2 (06:18)
[2024-07-04] MEDS: INSULIN LISPRO (HumaLOG) 100 UNIT/ML 10 mL VL SQ SCH (06:35)
[2024-07-04 06:43] LABS: Basophils # (A) 0.01 10*3/uL (0.00-0.10); Basophils % (A) 0.1 %; HCT 34.2 % (37.2-46.3); Lymphocytes # (A) 0.61 10*3/uL (0.90-5.00); Lymphocytes % (A) 6.4 %; MCH 26.4 pg (27.0-32.0); MCHC 32.2 g/dL (32.0-37.0); MCV 82.2 fL (80.0-97.0); Mean Platelet Volume 10.6 fL (9.5-12.2); Monocytes # (A) 0.12 10*3/uL (0.20-1.00); Monocytes % (A) 1.3 %; Neutrophils # (A) 8.67 10*3/uL (1.80-7.70); Neutrophils % (A) 91.6 %; Platelet Count 226 10*3/uL (140-440); RBC 4.16 10*6/uL (4.10-5.20); RDW 15.4 % (11.5-14.5); WBC 9.47 10*3/uL (4.50-10.00)
[2024-07-04 07:08] LABS: African American GFR (CKD) >90 (>60 ml/min/1.73 sqM); Anion Gap 11 mmol/L; Blood Urea Nitrogen 13 mg/dL (7-17); Calcium 9.5 mg/dL (8.4-10.2); Carbon Dioxide 26 mmol/L (22-30); Chloride 100 mmol/L (98-107); Glucose 296 mg/dL (74-99); Non-African American GFR(CKD) >90 (>60 ml/min/1.73 sqM); Potassium 3.5 mmol/L (3.5-5.1); Sodium 137 mmol/L (137-145)
[2024-07-04] MEDS: SYMBICORT 160-4.5 MCG INHALER INHALATION SCH (07:53)
[2024-07-04] MEDS: MONTELUKAST 10 MG TAB PO SCH (09:03)
[2024-07-04] MEDS: MULTIVITAMINS, THERA 1 EACH TAB PO SCH (09:03)
[2024-07-04] MEDS: GABAPENTIN 100 MG CAP PO SCH ×2 (09:08)
[2024-07-04] MEDS: ENOXAPARIN 40 MG/0.4 ML SYRINGE SQ SCH (09:08)
[2024-07-04] MEDS: FLUTICASONE NASAL 50MCG/SPRAY 16GM BTL EA NOSTRIL SCH (09:13)
[2024-07-04] MEDS: AZITHROMYCIN 500 MG in SODIUM CHLORIDE 0.9% 250 ML IVPB SCH (09:18)
[2024-07-04] MEDS: ATORVASTATIN 20 MG TAB PO SCH (09:56)
[2024-07-04] MEDS: METOPROLOL SUCCINATE (ER) 50 MG TAB.ER.24H PO SCH (09:56)
[2024-07-04] MEDS: PANTOPRAZOLE 40 MG TABLET PO SCH (09:57)
[2024-07-04] MEDS: BENZOCAINE/MENTHOL LOZENG 1 EACH LOZENGE MUCOUS MEM PRN (10:28)
[2024-07-04 12:25] LABS: Glucose,Whole Blood 197 mg/dL (70-110)
--- NOTE | 2024-07-04 12:37 | P.CNPUL ---
History of Present Illness Consult date: 07/04/24 Requesting physician: Nito Menchaca Reason for consult: dyspnea, cough, asthma, COPD, hypoxemia, abnormal CXR/CT Chief complaint: Shortness of breath, chest congestion. History of present illness: Pulmonary consult dated July 04, 2024. 59-year-old female with a history of severe tracheomalacia, with previous tracheal surgery, who states that she has been having increasing respiratory issues for the last 3 to 4 days, including shortness of breath, cough, chest congestion, and wheezing. She sees my partner in the office, and was directed to the emergency department, to be evaluated. The patient mentioned that she feels like she needs a bronchoscopy, which will likely be done early next week, by Dr. Johnson. The patient is seen in the emergency department, room 23. In addition to cough, she is coughing up some phlegm, which has a hale-green color to it. In addition, she had a bit of hemoptysis as well. She denies chest pain, and she also denies any fever. She apparently mention to the emergency department physician, but she was having chills as well. She did have [place] virus infection, in February. She was on BiPAP, with settings of 12/6, 40%. She is getting saline at 100 cc an hour. She is also on nasal O2 at [address] angiogram, that was negative, for PE, and also negative for infiltrate/pneumonia. She was initially thought to have a pneumonia. A pr ocalcitonin level was ordered. She was placed on azithromycin, and Zosyn. White count is 9.5, hemoglobin 11, hematocrit 34.2, platelet count normal. Coagulation studies are normal. Sodium 137, potassium 3.5, chlorides 100, CO2 26, anion gap 11, BUN 13, creatinine 0.56. Glucose is 197. Hemoglobin A1c was 6.4. Calcium 9.5. Procalcitonin level was normal at 0.20. Viral screen was negative. Chest x-ray suggested the possibility of a right sided infiltrate. That was not seen on the patient's CT scan. The CT angiogram was negative for PE. Review of Systems REVIEW OF SYSTEMS: CONSTITUTIONAL: [Negative.] NEUROLOGIC: [ Negative.] HEENT: [ Negative.] CARDIAC: [Negative.] PULMONARY: Shortness of breath, cough, chest congestion, phlegm production. GI: [Negative.] : [Negative.] RHEUMATOLOGIC: [ Negative.] IMMUNOLOGIC: [ Negative.] ENDOCRINE: [Negative. ] DERMATOLOGIC: [Negative.] Past Medical History Past Medical History: Asthma, Chest Pain / Angina, COPD, GERD/Reflux, Hyperlipidemia, Hypertension, Musculoskeletal Disorder, Osteoarthritis (OA), Pneumonia, Sleep Apnea/CPAP/BIPAP, Thyroid Disorder Additional Past Medical History / Comment(s): Diet Controlled Diabetes (pre-diabetic), prone to hypoglycemia. Episodes of lightheadedness and near syncope. Severe tracheobronchomalacia. 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 Occasional tachycardia especially when eating and with activity, controlled with Metoprolol. CPAP use. Thyroid nodules. Spinal stenosis. Vitamin D Deficiency, Iron Deficiency Anemia, low potassium with HCTZ on potassium now. Migraines. Bruises easily. Oxygen at 2-3 liters at hs and PRN. POTS syndrome. Mild sliding hiatal hernia. Bronchiectasis. treachealmyalgia History of Any Multi-Drug Resistant Organisms: None Reported Date of last positivie culture/infection: 03/2018 MDRO Source:: Lung Past Surgical History: Appendectomy, Back Surgery, Bariatric Surgery, Section, Cholecystectomy, Heart Catheterization, Hysterectomy, Orthopedic S urgery, Tonsillectomy Additional Past Surgical History / Comment(s): Gastric sleeve with hiatal hernia repair, spinal fusion/decompression L4-L5 and S1, bilateral shoulder art hroscopies, 3 laparotomies due to pain/ovarian cyst/adhesions, D&Cs X2 after miscarriages, lipoma removed from left side of back, colonoscopy, EGD's, tracheal stent removal X3, trachealbronchoplasty, tracheal resection 11/17. Past Anesthesia/Blood Transfusion Reactions: Previous Problems w/ Anesthesia, Motion Sickness, Postoperative Nausea & Vomiting (PONV) Additional Past Anesthesia/Blood Transfusion Reaction / Comment(s): Difficult IV start, difficult intubation("weak airway") - states they use airway band, states occasional memory issues after anesthesia. Past Psychological History: Anxiety, Depression Smoking Status: Never smoker Past Alcohol Use History: None Reported Past Drug Use History: None Reported - Past Family History Father Family Medical History: Cancer Additional Family Medical History / Comment(s): . Mother Family Medical History: Cancer Additional Family Medical History / Comment(s): . Brother(s) Family Medical History: Pulmonary Embolus Medications and Allergies Home Medications Medication Instructions Recorded Confirmed Type Acetaminophen Tab [Tylenol] 1,000 mg PO Q6H PRN 10/22/23 07/03/24 History Budesonide/Glycopyr/Formoterol 2 puff INHALATION RT-BID 10/22/23 07/03/24 History [Breztri Aerosphere Inhaler] Docusate [Colace] 100 mg PO BID PRN 10/22/23 07/03/24 History Tezepelumab-Ekko [Tezspire] 210 mg SQ Q28D 10/22/23 07/03/24 History Albuterol Inhaler [Ventolin Hfa 2 puff INHALATION RT-QID PRN 10/23/23 07/03/24 History Inhaler] Albuterol Nebulized [Ventolin 2.5 mg INHALATION RT-QID PRN 10/23/23 07/03/24 History Nebulized] Furosemide [Lasix] 20 mg PO DAILY PRN 10/23/23 07/04/24 History Gabapentin [Neurontin] 100 mg PO BID PRN 10/23/23 07/03/24 History Ipratropium-Albuterol Nebulize 3 ml INHALATION RT-QID 10/23/23 07/04/24 History [Duoneb 0.5 mg-3 mg/3 ml Soln] Montelukast [Singulair] 10 mg PO DAILY 10/23/23 07/03/24 History Omeprazole 40 mg PO BID 10/23/23 07/04/24 History guaiFENesin-Coden 100-10MG/5ML 5 ml PO Q6HR PRN 10/23/23 07/03/24 History [Robitussin AC] HYDROcodone/APAP 10-325MG [[place] 1 tab PO Q6HR PRN #28 tab 10/26/23 07/03/24 Rx 10-325] Acetylcysteine [Mucomyst 20%] 800 mg INHALATION RT-BID PRN 07/03/24 07/04/24 History Atorvastatin [Lipitor] 20 mg PO DAILY 07/03/24 07/03/24 History Azelastine HCl [Astepro Allergy] 2 spr EA NOSTRIL BID 07/03/24 07/04/24 History Benzocaine/Menthol Lozeng [Cepacol 1 lozenge MM Q2H PRN 07/03/24 07/03/24 History lozenge] Benzocaine/Menthol [Cepacol Sore 1 spray MM QID PRN 07/03/24 07/03/24 History Throat Lozenge] Calcium Carbonate [Tums] 1,000 - 2,000 mg PO QID PRN 07/03/24 07/03/24 History Cetirizine HCl [Zyrtec] 10 mg PO DAILY PRN 07/03/24 07/03/24 History Cholecalciferol [Vitamin D3 (125 125 mcg PO SA 07/03/24 07/03/24 History Mcg = 5000 Iu)] Cyclobenzaprine [Flexeril] 10 mg PO TID PRN 07/03/24 07/03/24 History Dextromethorphan Polistirex 30 mg PO Q12H PRN 07/03/24 07/03/24 History [Delsym] Estrogens, Conjugated Cream 1 applic VAGINAL TUSA PRN 07/03/24 07/03/24 History [Premarin Vaginal Cream] Fluticasone Nasal [place] [Flonase 1 spr EA NOSTRIL BID 07/03/24 07/03/24 History Nasal [place]] Gabapentin [Neurontin] 100 mg PO DAILY 07/03/24 07/03/24 History Gluten Digestive Enzymes 2 tab PO AC-TID PRN 07/03/24 07/03/24 History Inulin/Chromium Picolinate [Fiber 1 tab PO BID PRN 07/03/24 07/03/24 History Gummies Chew] L.acidoph,Paracasei, B.lactis 1 cap PO DAILY 07/03/24 07/03/24 History [Probiotic] Metoprolol Succinate (ER) [Toprol 50 mg PO DAILY 07/03/24 07/04/24 History Xl] Multivitamins, Thera [Multivitamin 1 tab PO DAILY 07/03/24 07/03/24 History (formulary)] Nystatin 100,000 Unit/ml Susp 500,000 unit PO QID PRN 07/03/24 07/03/24 History [Mycostatin Oral Susp] Sennosides 17.2 mg PO BID PRN 07/03/24 07/03/24 History Sodium Chloride Nebulizer(Unknown 1 dose INHALATION DIRECTED PRN 07/03/24 07/03/24 History Dose) Triamterene-Hctz 37.5-25Mg 1 tab PO DAILY 07/03/24 07/03/24 History [Maxzide 37.5-25] Vitamin B Complex 1 cap PO DAILY 07/03/24 07/03/24 History guaiFENesin [Mucinex] 1,200 mg PO BID PRN 07/03/24 07/03/24 History predniSONE See Taper PO DAILY 07/03/24 07/03/24 History Potassium Chloride ER [K-Dur 10] 10 meq PO BID PRN 07/04/24 07/04/24 History Promethaz-Cod 6.25-10 mg/5 ml 10 ml PO QID PRN 07/04/24 07/04/24 History [Phenergan with Codeine] Allergies Allergy/AdvReac Type Severity Reaction Status Date / Time cat dander Allergy eye Verified 07/03/24 19:58 swelling ciprofloxacin [From Cipro] Allergy Itching Verified 07/03/24 19:58 gluten Allergy Abdominal Verified 07/03/24 19:58 Pain/HEADACHES, constipation NSAIDS (Non-Steroidal AdvReac Abdominal Verified 07/03/24 19:58 Anti-Inflamma Pain shellfish derived [Shellfish] AdvReac Vomiting Verified 07/03/24 19:58 Physical Exam Osteopathic Statement: *. No significant issues noted on an osteopathic structural exam other than those noted in the History and Physical/Consult. Vitals: Vital Signs Temp Pulse Pulse Resp BP BP Pulse Ox 07/04/24 11:47 100 07/04/24 11:36 98 07/04/24 10:29 100 30 H 120/71 98 07/04/24 08:56 97.9 F 98 26 H 123/83 96 07/04/24 08:02 86 07/04/24 07:54 88 07/04/24 06:18 94 24 118/71 97 07/04/24 04:00 98.4 F 86 24 126/78 98 07/04/24 02:42 84 07/04/24 02:34 07/04/24 02:33 85 07/04/24 02:00 86 24 07/04/24 00:00 98.4 F 96 24 108/75 95 07/03/24 23:36 87 18 112/67 98 07/03/24 21:23 07/03/24 21:16 114 H 20 129/70 98 07/03/24 20:28 112 H 20 123/70 97 07/03/24 20:21 97 07/03/24 20:14 112 H 07/03/24 20:11 07/03/24 20:06 101 H 07/03/24 19:42 96 24 94 L 07/03/24 19:17 105 H 18 126/75 99 07/03/24 18:48 108 H 20 135/72 97 07/03/24 17:57 07/03/24 17:40 100 07/03/24 17:00 100 07/03/24 16:45 96 07/03/24 16:33 79 24 117/93 98 07/03/24 16:23 92 07/03/24 15:29 97.9 F 92 20 143/88 98 FiO2 07/04/24 11:47 07/04/24 11:36 40 07/04/24 10:29 07/04/24 08:56 07/04/24 08:02 07/04/24 07:54 07/04/24 06:18 07/04/24 04:00 40 07/04/24 02:42 07/04/24 02:34 40 07/04/24 02:33 07/04/24 02:00 07/04/24 00:00 07/03/24 23:36 07/03/24 21:23 40 07/03/24 21:16 07/03/24 20:28 07/03/24 20:21 07/03/24 20:14 07/03/24 20:11 40 07/03/24 20:06 07/03/24 19:42 07/03/24 19:17 07/03/24 18:48 07/03/24 17:57 40 07/03/24 17:40 07/03/24 17:00 07/03/24 16:45 07/03/24 16:33 07/03/24 16:23 07/03/24 15:29 Intake and Output 07/03/24 07/04/24 07/04/24 22:59 06:59 14:59 Intake Total 2280 Balance 2280 Intake: Intake, IV Titration 1800 Amount Lactated Ringers 1,000 ml 1000 @ 999 mls/hr IV .Q1H1M ONE Rx#:[id number] Piperacillin-Tazobactam 3 100 .375 gm In Sodium Chloride 0.9% 100 ml @ 25 mls/hr IVPB Q8HR [facility] Rx# :[id number] Sodium Chloride 0.9% 1, 700 000 ml @ 100 mls/hr IV . Q10H [facility] Rx#:[id number] Oral 480 Other: Voiding Method Bedside Commode # Voids 1 Weight 103.419 kg No acute distress, oriented 3. Currently on nasal O2 at 3 L. HEENT examination is grossly unremarkable. Mucous membranes are moist. No oral lesions. Neck supple. Full range of motion. No adenopathy thyromegaly or neck vein distention. Cardiovascular examination reveals regular rhythm rate. S1-S2 normal. No S3 or S4. No discernible murmur noted. Heart sounds are distant. Lungs reveal scattered bilateral rhonchi. Minimal expiratory wheezes. No crackles. Breath sounds equal bilaterally. No stridor. Abdomen soft bowel sounds are heard. No masses or tenderness. Extremities are intact. No cyanosis clubbing or edema. Skin is without rash or lesion. Neurologic examination is brief but nonfocal. Results - Laboratory Findings CBC and BMP: 07/04/24 06:14 07/04/24 06:14 PT/INR, D-dimer PT 10.2 sec (10.0-12.5) 07/03/24 16:26 INR 0.9 (<1.2) 07/03/24 16:26 Abnormal lab findings: Abnormal Labs 07/03/24 07/03/24 07/04/24 16:26 16:26 06:07 WBC 13.02 H Hgb Hct MCH 26.7 L Immature Gran # 0.07 H Neutrophils # 11.73 H Lymphocytes # 0.87 L Monocytes # Eosinophils # 0.00 L Chloride 96 L Glucose 129 H POC Glucose (mg/dL) 304 H Hemoglobin A1c Calcium 10.4 H ALT 41 H 07/04/24 07/04/24 07/04/24 06:14 06:14 06:14 WBC Hgb 11.0 L Hct 34.2 L MCH 26.4 L Immature Gran # 0.06 H Neutrophils # 8.67 H Lymphocytes # 0.61 L Monocytes # 0.12 L Eosinophils # 0.00 L Chloride Glucose 296 H POC Glucose (mg/dL) Hemoglobin A1c 6.4 H Calcium ALT - Diagnostic Findings Chest x-ray: image reviewed CT scan - chest: image reviewed Assessment and Plan Assessment: Acute respiratory illness, characterized by shortness of breath, cough, chest congestion, and phlegm production, likely related to acute tracheobronchitis, rather than pneumonia. History of tracheobronchomalacia, S/P tracheal surgery 2021. Prior history of tracheal stent placement. History of chronic bronchial asthma. Gastroesophageal reflux disease. History of hyperlipidemia. History of hypertension. History of obstructive sleep apnea syndrome. Diabetes mellitus. Obesity. Iron deficiency anemia. Postural orthostatic tachycardia syndrome. Multiple other medical problems and comorbidities. Plan: Plan dated July 04, 2024. The patient was seen in the emergency department, room 23. She is on 3 L nasal cannula. She is getting saline at 100 cc an hour. The patient was placed on azithromycin, and Zosyn empirically. The antibiotic should be discontinued, or de-escalated as her procalcitonin level is normal. She has CT angiogram, which was negative for pulmonary embolism. There was no acute infiltrate, although it was suggested, based on the patient's chest x-ray. Labs, x-rays, and medications are reviewed. Will continue to follow the patient. Prognosis is guarded. She likely will undergo a bronchoscopy next week. Dictation was produced using [employer] dictation software. Please excuse any grammatical, word or spelling errors. Time with Patient: Greater than 30
--- NOTE | 2024-07-04 13:45 | P.PN ---
Subjective Progress Note Date: 07/04/24 Hospital Course: Patient is 59-year-old female past medical history of tracheomalacia, asthma presents today for shortness of breath. Patient states that her shortness of breath has progressively worsened over the last week, particularly over the last 3 days. She does endorse seeing pulmonology, and has been taking prednisone taper last week which she has now finished, and had chest x-ray done without signs of pneumonia. During this time she endorses a cough with thick green-hale sputum. This morning was blood-streaked. She wears oxygen at home intermittently 2 to 3 L as needed during the day and 4 L with CPAP at night. She does endorse some chills, without fever. She also has sore throat, runny nose which she attributes to worsening allergies over the last week. She also endorses palpitations, which are typically controlled with metoprolol however worse over this time period as well. Spoke with the ER physician, patient admission was accepted by internal medicine service for treatment. Subjective: Patient seen and examined at bedside. No acute events overnight. Pertinent positives and negatives as discussed above, a complete review of systems was performed and all other systems are negative. Vitals: Signs Reviewed Physical Exam: General: nontoxic, no distress, appears at stated age Derm: warm, dry, intact Head: atraumatic, normocephalic, symmetric Eyes: EOMI, anicteric sclera Mouth: no lip lesion, mucus membranes moist Cardiovascular: S1 S2 reg, no murmur, rubs, or gallops Lungs: Distant breath sounds bilateral, diffuse rhonchi bilaterally, no rales, no accessory muscle use Abdominal: soft, non-tender to palpataion, no appreciable organomegaly Extremities: no gross muscle atrophy, no edema, no contractures Neuro: Alert, Oriented, CNII-XII grossly intact, gait normal Psych: well appearing, appropriate affect Labs significant for WBC 13.0, glucose 129, ALT 41, troponin negative, proBNP 165, viral respiratory panel was negative EKG independently interpreted showed sinus heart rate of 87, QTc 442, no ST segment elevation or depression seen, nonspecific T wave abnormality V3 and V4 Chest x-ray done independently interpreted showed mild infiltrate right base CT angiogram of chest findings of no acute pulmonary embolism, no acute pulmonary process, mild asymmetry right vocal cord. Data Received Today: Pertinent Labs: Leukocytosis resolved 13.02 => 9.47, normocytic, borderline low potassium, hyperglycemia in setting of Decadron, hypercalcemia resolved, procalcitonin <0.20 Imaging: N/A Assessment and Plan: In summary, Patient is 59-year-old female past medical history of tracheomalacia, asthma presents today for shortness of breath. #Acute on chronic hypoxic respiratory failure in the setting of acute trachealbronchitis and bronchiectasis #Suspected underlying COPD exacerbation #History of tracheomalacia #History of asthma Respiratory rate 24, pulse 108, WBC 13 on admission - CXR findings of mild infiltrate right base, not seen on CT - Blood and sputum cultures, Legionella pending - Viral respiratory panel negative Procalcitonin <0.20 - IVPB Azithromycin 500 mg Zosyn 3.375 g every 8 hours - DuoNebs [id number], Symbicort 160-4.5 2 puffs twice daily Singulair 10 mg p.o. daily - Begin Solu-medrol 40 mg IV every 8 hours Normal saline at 100 cc an hour - Give supplemental O2 via NC goal of >92% spO2, transition to BiPAP if worsening Pulmonology note reviewed, consider de-escalating antibiotics due to normal procalcitonin level #. Erg-sfiltmu-aatgzsdkl diabetes mellitus #. Hyperglycemia Diabetes managed by diet at home Hyperglycemia status post Decadron Low-dose insulin sliding scale SQ Accu-Cheks ACHS Monitor for hypoglycemia Chronic Medical Conditions: GERD: Protonix 40 mg p.o. twice daily Hyperlipidemia: Atorvastatin Hypertension: Metoprolol succinate 50 mg p.o. daily, Sleep apnea on CPAP Hypothyroidism DVT ppx: Subq Lovenox 40 meq daily Code status: Full code F: IV Normal saline 100 mL/hr E: Replete as needed N: Regular diet A: Ambulatory Anticipated discharge place: Home Anticipated discharge time: >2 days Thao Hernandez MD PGY-1 IM Dictation was produced using [employer] dictation software. please excuse any grammatical, word or spelling errors. I have seen and evaluated the patient today. Discussed with the resident and agree with the residents finding and plan as documented in the resident's note. Changes highlighted in blue font. Objective - Vital Signs Vital signs: Vital Signs Temp 98.4 F 07/04/24 04:00 Pulse 88 07/04/24 07:54 Resp 24 05/09/25 06:18 BP 118/71 07/04/24 06:18 Pulse Ox 97 07/04/24 06:18 FiO2 40 07/04/24 04:00 Intake & Output 07/03/24 07/04/24 07/04/24 18:59 06:59 18:59 Intake Total 2280 Balance 2280 Weight 103.419 kg 103.419 kg Intake: Intake, IV Titration 1800 Amount Lactated Ringers 1,000 ml 1000 @ 999 mls/hr IV .Q1H1M ONE Rx#:[id number] Piperacillin-Tazobactam 3 100 .375 gm In Sodium Chloride 0.9% 100 ml @ 25 mls/hr IVPB Q8HR [facility] Rx# :[id number] Sodium Chloride 0.9% 1, 700 000 ml @ 100 mls/hr IV . Q10H [facility] Rx#:[id number] Oral 480 Other: Voiding Method Bedside Commode # Voids 1 - Labs CBC & Chem 7: 07/04/24 06:14 07/04/24 06:14 Labs: Abnormal Lab Results - Last 24 Hours (Table) 07/03/24 07/03/24 07/04/24 Range/Units 16:26 16:26 06:07 WBC 13.02 H (4.50-10.00) 10*3/uL Hgb (12.0-15.0) g/dL Hct (37.2-46.3) % MCH 26.7 L (27.0-32.0) pg Immature Gran # 0.07 H (0.00-0.04) 10*3/uL Neutrophils # 11.73 H (1.80-7.70) 10*3/uL Lymphocytes # 0.87 L (0.90-5.00) 10*3/uL Monocytes # (0.20-1.00) 10*3/uL Eosinophils # 0.00 L (0.04-0.35) 10*3/uL Chloride 96 L (98-107) mmol/L Glucose 129 H (74-99) mg/dL POC Glucose (mg/dL) 304 H (70-110) mg/dL Calcium 10.4 H (8.4-10.2) mg/dL ALT 41 H (4-34) U/L 07/04/24 07/04/24 Range/Units 06:14 06:14 WBC (4.50-10.00) 10*3/uL Hgb 11.0 L (12.0-15.0) g/dL Hct 34.2 L (37.2-46.3) % MCH 26.4 L (27.0-32.0) pg Immature Gran # 0.06 H (0.00-0.04) 10*3/uL Neutrophils # 8.67 H (1.80-7.70) 10*3/uL Lymphocytes # 0.61 L (0.90-5.00) 10*3/uL Monocytes # 0.12 L (0.20-1.00) 10*3/uL Eosinophils # 0.00 L (0.04-0.35) 10*3/uL Chloride (98-107) mmol/L Glucose 296 H (74-99) mg/dL POC Glucose (mg/dL) (70-110) mg/dL Calcium (8.4-10.2) mg/dL ALT (4-34) U/L
[2024-07-04 17:56] LABS: Glucose,Whole Blood 218 mg/dL (70-110)
[2024-07-04] MEDS: BENZONATATE 100 MG CAP PO PRN (17:59)
[2024-07-04] MEDS: CYCLOBENZAPRINE 10 MG TAB PO PRN (17:59)
[2024-07-04] MEDS: DOCUSATE 100 MG CAP PO PRN (18:09)
[2024-07-04 20:47] LABS: Glucose,Whole Blood 240 mg/dL (70-110)
[2024-07-04] MEDS ORDERED: GABAPENTIN 100 MG CAP PO SCH (21:00)
[2024-07-04] MEDS ORDERED: METOPROLOL SUCCINATE (ER) 50 MG TAB.ER.24H PO SCH (21:00)
[2024-07-05 06:42] LABS: Glucose,Whole Blood 242 mg/dL (70-110)
[2024-07-05 07:44] LABS: Basophils # (A) 0.01 10*3/uL (0.00-0.10); Basophils % (A) 0.1 %; HGB 10.7 g/dL (12.0-15.0); Lymphocytes # (A) 1.01 10*3/uL (0.90-5.00); Lymphocytes % (A) 6.8 %; MCH 26.5 pg (27.0-32.0); MCHC 31.5 g/dL (32.0-37.0); MCV 84.2 fL (80.0-97.0); Mean Platelet Volume 10.9 fL (9.5-12.2); Monocytes # (A) 0.33 10*3/uL (0.20-1.00); Monocytes % (A) 2.2 %; Neutrophils # (A) 13.34 10*3/uL (1.80-7.70); Neutrophils % (A) 90.2 %; Platelet Count 255 10*3/uL (140-440); RBC 4.04 10*6/uL (4.10-5.20); RDW 15.7 % (11.5-14.5); WBC 14.79 10*3/uL (4.50-10.00)
[2024-07-05 07:55] LABS: ALT 28 U/L (4-34); AST 23 U/L (14-36); African American GFR (CKD) >90 (>60 ml/min/1.73 sqM); Albumin 3.9 g/dL (3.5-5.0); Alkaline Phosphatase 65 U/L (38-126); Anion Gap 9 mmol/L; Blood Urea Nitrogen 16 mg/dL (7-17); Calcium 9.2 mg/dL (8.4-10.2); Carbon Dioxide 26 mmol/L (22-30); Chloride 106 mmol/L (98-107); Glucose 212 mg/dL (74-99); Magnesium 2.2 mg/dL (1.6-2.3); Non-African American GFR(CKD) >90 (>60 ml/min/1.73 sqM); Potassium 3.9 mmol/L (3.5-5.1); Sodium 141 mmol/L (137-145); Total Bilirubin 0.4 mg/dL (0.2-1.3); Total Protein 6.3 g/dL (6.3-8.2)
[2024-07-05] MEDS: LORATADINE 10 MG TAB PO PRN (07:59)
[2024-07-05] MEDS ORDERED: FUROSEMIDE 20 MG TAB PO PRN (10:40)
--- NOTE | 2024-07-05 10:44 | P.PN ---
Subjective Progress Note Date: 07/05/24 I have seen and evaluated the patient today. Discussed with the resident and agree with the residents finding and plan as documented in the resident's note. Changes highlighted in blue font. Hospital Course: Patient is 59-year-old female past medical history of tracheomalacia, asthma presents today for shortness of breath. Patient states that her shortness of breath has progressively worsened over the last week, particularly over the last 3 days. She does endorse seeing pulmonology, and has been taking prednisone taper last week which she has now finished, and had chest x-ray done without signs of pneumonia. During this time she endorses a cough with thick green-hale sputum. This morning was blood-streaked. She wears oxygen at home intermittently 2 to 3 L as needed during the day and 4 L with CPAP at night. She does endorse some chills, without fever. She also has sore throat, runny nose which she attributes to worsening allergies over the last week. She also endorses palpitations, which are typically controlled with metoprolol however worse over this time period as well. Spoke with the ER physician, patient admission was accepted by internal medicine service for treatment. Subjective: Patient seen and examined at bedside. No acute events overnight. Pertinent positives and negatives as discussed above, a complete review of systems was performed and all other systems are negative. Vitals: Signs Reviewed Physical Exam: General: nontoxic, no distress, appears at stated age Derm: warm, dry, intact Head: atraumatic, normocephalic, symmetric Eyes: EOMI, anicteric sclera Mouth: no lip lesion, mucus membranes moist Cardiovascular: S1 S2 reg, no murmur, rubs, or gallops Lungs: Distant breath sounds bilateral, diffuse rhonchi bilaterally, no rales, no accessory muscle use Abdominal: soft, non-tender to palpataion, no appreciable organomegaly Extremities: no gross muscle atrophy, no edema, no contractures Neuro: Alert, Oriented, CNII-XII grossly intact, gait normal Psych: well appearing, appropriate affect Labs significant for WBC 13.0, glucose 129, ALT 41, troponin negative, proBNP 165, viral respiratory panel was negative EKG independently interpreted showed sinus heart rate of 87, QTc 442, no ST segment elevation or depression seen, nonspecific T wave abnormality V3 and V4 Chest x-ray done independently interpreted showed mild infiltrate right base CT angiogram of chest findings of no acute pulmonary embolism, no acute pulmonary process, mild asymmetry right vocal cord. Data Received Today: Pertinent Labs: Leukocytosis trending upward from 9.47 => 14.79, Hgb stable at 10.7, POC glucose range [id number] Imaging: N/A Assessment and Plan: In summary, Patient is 59-year-old female past medical history of tracheomalacia, asthma presents today for shortness of breath. #Acute on chronic hypoxic respiratory failure in the setting of acute trachealbronchitis and bronchiectasis #Suspected underlying COPD exacerbation #History of tracheomalacia #History of asthma #Leukocytosis, neutrophilic predominant with left shift Respiratory rate 24, pulse 108, WBC 13 on admission - CXR findings of mild infiltrate right base, not seen on CT - Preliminary blood culture displaying no growth after 24 hours, sputum culture pending - Viral respiratory panel negative, Legionella negative, procalcitonin < 0.20 - IVPB Azithromycin 500 mg, day 3 out of 3 IV Zosyn has been discontinued - DuoNebs [id number], Symbicort 160-4.5 2 puffs twice daily Singulair 10 mg p.o. daily - Solu-medrol switch to oral prednisone 40 mg daily for 3 more days Fluids have been discontinued - Give supplemental O2 via NC goal of 88-92% spO2, transition to BiPAP if worsening Pulmonology note reviewed, consider de-escalating antibiotics due to normal procalcitonin level; possible bronchoscopy next week Lower extremity edema -resume home Lasix 20 mg daily PRN #. [id number] diabetes mellitus #. Hyperglycemia Diabetes managed by diet at home, A1c 6.4% POC glucose in the past 24 hours ranged between 187 Expect glucose to trend downward after converting IV steroids to PO Humalog 3 units SQ AC-TID, Lantus 5 units SQ AM Hyperglycemia status post Decadron Low-dose insulin sliding scale SQ Accu-Cheks ACHS Monitor for hypoglycemia Chronic Medical Conditions: GERD: Protonix 40 mg p.o. twice daily Hyperlipidemia: Atorvastatin Hypertension: Metoprolol succinate 50 mg p.o. daily Sleep apnea on CPAP Hypothyroidism DVT ppx: Subq Lovenox 40 meq daily Code status: Full code Anticipated discharge place: Home Anticipated discharge time: > 2 days Thao Hernandez MD PGY-1 IM Dictation was produced using [employer] dictation software. please excuse any grammatical, word or spelling errors. Objective - Vital Signs Vital signs: Vital Signs Temp 98.1 F 07/05/24 04:00 Pulse 73 07/05/24 04:00 Resp 19 07/05/24 04:00 BP 108/70 07/05/24 04:00 Pulse Ox 99 07/05/24 04:00 FiO2 40 07/05/24 04:24 Intake & Output 07/04/24 07/05/24 07/05/24 18:59 06:59 18:59 Intake Total 240 Balance 240 Weight 108.227 kg Intake: Oral 240 Other: Voiding Method Bedside Commode Bedside Commode # Voids 0 1 - Labs CBC & Chem 7: 07/05/24 07:10 07/05/24 07:06 Labs: Abnormal Lab Results - Last 24 Hours (Table) 07/04/24 07/04/24 07/04/24 Range/Units 06:14 06:14 12:24 Glucose 296 H (74-99) mg/dL POC Glucose (mg/dL) 197 H (70-110) mg/dL Hemoglobin A1c 6.4 H (<=6.0) % 07/04/24 07/04/24 07/05/24 Range/Units 17:55 20:45 06:40 Glucose (74-99) mg/dL POC Glucose (mg/dL) 218 H 240 H 242 H (70-110) mg/dL Hemoglobin A1c (<=6.0) % Microbiology - Last 24 Hours (Table) 07/03/24 16:26 Blood Culture - Preliminary Blood
--- NOTE | 2024-07-05 10:45 | P.PN ---
Subjective Progress Note Date: 07/05/24 Principal diagnosis: Bronchitis with bronchospasm. Pulmonary consult dated July 04, 2024. 59-year-old female with a history of severe tracheomalacia, with previous tracheal surgery, who states that she has been having increasing respiratory issues for the last 3 to 4 days, including shortness of breath, cough, chest congestion, and wheezing. She sees my partner in the office, and was directed to the emergency department, to be evaluated. The patient mentioned that she feels like she needs a bronchoscopy, which will likely be done early next week, by Dr. Johnson. The patient is seen in the emergency department, room 23. In addition to cough, she is coughing up some phlegm, which has a hale-green color to it. In addition, she had a bit of hemoptysis as well. She denies chest pain, and she also denies any fever. She apparently mention to the emergency department physician, but she was having chills as well. She did have coronavirus infection, in February. She was on BiPAP, with settings of 12/6, 40%. She is getting saline at 100 cc an hour. She is also on nasal O2 at [address] angiogram, that was negative, for PE, and also negative for infiltrate/pneumonia. She was initially thought to have a pneumonia. A procalcitonin level was ordered. She was placed on azithromycin, and Zosyn. White count is 9.5, hemoglobin 11, hematocrit 34.2, platelet count normal. Coagulation studies are normal. Sodium 137, potassium 3.5, chlorides 100, CO2 26, anion gap 11, BUN 13, creatinine 0.56. Glucose is 197. Hemoglobin A1c was 6.4. Calcium 9.5. Procalcitonin level was normal at 0.20. Viral screen was negative. Chest x-ray suggested the possibility of a right sided infiltrate. That was not seen on the patient's CT scan. The CT angiogram was negative for PE. Progress note dated July 05, 2024. 59-year-old female well-known to our service. She has a history of tracheomalacia, severe, with previous tracheoplasty. The patient also has a hi story of asthma, and follows with one of my partners in the office for her lung issues. She presents to the emergency department with increasing shortness of breath, cough, chest congestion, wheezing, and phlegm production. The patient had a CT angiogram that was negative for pulmonary embolism. The patient was placed on antibiotics. She was also placed on bronchodilators and corticosteroids. She is seen today in room 378. She is doing a bit better today than she did yesterday. She is currently on 3 L. She continues on azithromycin and Zosyn. The patient did use BiPAP, with settings of 12/6, and 40%. In addition, the patient is on Solu-Medrol, DuoNebs, and Symbicort. White count was 14.8, hemoglobin 10.7, hematocrit 34, platelet count 255,000. Sodium 141, potassium 3.9, chlorides 106, CO2 26, BUN 16, creatinine 0.67. Objective - Vital Signs Vital signs: Vital Signs Temp 97.4 F L 07/05/24 07:57 Pulse 92 07/05/24 08:32 Resp 18 07/05/24 07:57 BP 112/72 07/05/24 07:57 Pulse Ox 93 L 07/05/24 08:19 FiO2 40 07/05/24 04:24 Intake & Output 07/04/24 07/05/24 07/05/24 18:59 06:59 18:59 Intake Total 240 240 Balance 240 240 Weight 108.227 kg Intake: Oral 240 240 Other: Voiding Method Bedside Commode Bedside Commode Bedside Commode # Voids 0 1 - Exam No acute distress, oriented 3. Currently on nasal O2 at 3 L. HEENT examination is grossly unremarkable. Mucous membranes are moist. No oral lesions. Neck supple. Full range of motion. No adenopathy thyromegaly or neck vein distention. Cardiovascular examination reveals regular rhythm rate. S1-S2 normal. No S3 or S4. No discernible murmur noted. Heart sounds are distant. Lungs reveal scattered bilateral rhonchi. Minimal expiratory wheezes. No crackles. Breath sounds equal bilaterally. No stridor. Abdomen soft bowel sounds are heard. No masses or tenderness. Extremities are intact. No cyanosis clubbing or edema. Skin is without rash or lesion. Neurologic examination is brief but nonfocal. - Labs CBC & Chem 7: 07/05/24 07:10 07/05/24 07:06 Labs: Abnormal Lab Results - Last 24 Hours (Table) 07/04/24 07/04/24 07/04/24 Range/Units 12:24 17:55 20:45 WBC (4.50-10.00) 10*3/uL RBC (4.10-5.20) 10*6/uL Hgb (12.0-15.0) g/dL Hct (37.2-46.3) % MCH (27.0-32.0) pg MCHC (32.0-37.0) g/dL Immature Gran # (0.00-0.04) 10*3/uL Neutrophils # (1.80-7.70) 10*3/uL Eosinophils # (0.04-0.35) 10*3/uL Glucose (74-99) mg/dL POC Glucose (mg/dL) 197 H 218 H 240 H (70-110) mg/dL 07/05/24 07/05/24 07/05/24 Range/Units 06:40 07:06 07:10 WBC 14.79 H (4.50-10.00) 10*3/uL RBC 4.04 L (4.10-5.20) 10*6/uL Hgb 10.7 L (12.0-15.0) g/dL Hct 34.0 L (37.2-46.3) % MCH 26.5 L (27.0-32.0) pg MCHC 31.5 L (32.0-37.0) g/dL Immature Gran # 0.10 H (0.00-0.04) 10*3/uL Neutrophils # 13.34 H (1.80-7.70) 10*3/uL Eosinophils # 0.00 L (0.04-0.35) 10*3/uL Glucose 212 H (74-99) mg/dL POC Glucose (mg/dL) 242 H (70-110) mg/dL Microbiology - Last 24 Hours (Table) 07/03/24 16:26 Blood Culture - Preliminary Blood Assessment and Plan Assessment: Acute respiratory illness, characterized by shortness of breath, cough, chest congestion, and phlegm production, likely related to acute tracheobronchitis, rather than pneumonia. History of tracheobronchomalacia, S/P tracheal surgery 2021. Prior history of tracheal stent placement. History of chronic bronchial asthma. Gastroesophageal reflux disease. History of hyperlipidemia. History of hypertension. History of obstructive sleep apnea syndrome. Diabetes mellitus. Obesity. Iron deficiency anemia. Postural orthostatic tachycardia syndrome. Multiple other medical problems and comorbidities. Plan: Plan dated July 04, 2024. The patient was seen in the emergency department, room 23. She is on 3 L nasal cannula. She is getting saline at 100 cc an hour. The patient was placed on azithromycin, and Zosyn empirically. The antibiotic should be discontinued, or de-escalated as her procalcitonin level is normal. She has CT angiogram, which was negative for pulmonary embolism. There was no acute infiltrate, although it was suggested, based on the patient's chest x-ray. Labs, x-rays, and medications are reviewed. Will continue to follow the patient. Prognosis is guarded. She likely will undergo a bronchoscopy next week. Dictation was produced using [employer] software. Please excuse any grammatical, word or spelling errors. Plan dated July 05, 2024. The patient is seen today in room 378. She is feeling a bit better today than yesterday. Yesterday she was seen in the emergency department. She continues on nasal O2 3 L. She did use BiPAP last night, with settings of 12/6, 40%. She continues on breathing treatments, Solu-Medrol, Symbicort. All labs, x-rays, and medications are reviewed. Procalcitonin level was less than 0.20, x 2. We will continue to follow the patient, make recommendations. 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 Dictation was produced using [employer] software. Please excuse any grammatical, word or spelling errors. Time with Patient: Less than 30
[2024-07-05] MEDS: FUROSEMIDE 20 MG TAB PO STA (10:59)
[2024-07-05 12:04] LABS: Glucose,Whole Blood 104 mg/dL (70-110)
[2024-07-05] MEDS: INSULIN LISPRO (HumaLOG) 100 UNIT/ML 10 mL VL SQ SCH (12:16)
[2024-07-05 16:49] LABS: Glucose,Whole Blood 232 mg/dL (70-110)
[2024-07-05 20:01] LABS: Glucose,Whole Blood 202 mg/dL (70-110)
[2024-07-05] MEDS: INSULIN GLARGINE (LANTUS) 100 UNIT/ML SYR SQ SCH (20:26)
[2024-07-06 06:09] LABS: Glucose,Whole Blood 137 mg/dL (70-110)
[2024-07-06 07:43] LABS: Basophils # (A) 0.01 10*3/uL (0.00-0.10); Basophils % (A) 0.1 %; Eosinophils # (A) 0.01 10*3/uL (0.04-0.35); Eosinophils % (A) 0.1 %; HCT 33.7 % (37.2-46.3); HGB 10.7 g/dL (12.0-15.0); Lymphocytes # (A) 1.81 10*3/uL (0.90-5.00); Lymphocytes % (A) 16.7 %; MCH 26.4 pg (27.0-32.0); MCHC 31.8 g/dL (32.0-37.0); Mean Platelet Volume 10.7 fL (9.5-12.2); Monocytes % (A) 3.7 %; Neutrophils # (A) 8.52 10*3/uL (1.80-7.70); Neutrophils % (A) 78.8 %; Platelet Count 230 10*3/uL (140-440); RBC 4.06 10*6/uL (4.10-5.20); RDW 15.8 % (11.5-14.5); WBC 10.82 10*3/uL (4.50-10.00)
[2024-07-06 08:02] LABS: African American GFR (CKD) >90 (>60 ml/min/1.73 sqM); Anion Gap 8 mmol/L; Blood Urea Nitrogen 19 mg/dL (7-17); Calcium 9.4 mg/dL (8.4-10.2); Carbon Dioxide 29 mmol/L (22-30); Chloride 103 mmol/L (98-107); Glucose 106 mg/dL (74-99); Non-African American GFR(CKD) 85 (>60 ml/min/1.73 sqM); Potassium 3.4 mmol/L (3.5-5.1); Sodium 140 mmol/L (137-145)
--- NOTE | 2024-07-06 09:08 | P.PN ---
Subjective Progress Note Date: 07/06/24 Principal diagnosis: Bronchitis with bronchospasm. Pulmonary consult dated July 04, 2024. 59-year-old female with a history of severe tracheomalacia, with previous tracheal surgery, who states that she has been having increasing respiratory issues for the last 3 to 4 days, including shortness of breath, cough, chest congestion, and wheezing. She sees my partner in the office, and was directed to the emergency department, to be evaluated. The patient mentioned that she feels like she needs a bronchoscopy, which will likely be done early next week, by Dr. Johnson. The patient is seen in the emergency department, room 23. In addition to cough, she is coughing up some phlegm, which has a hale-green color to it. In addition, she had a bit of hemoptysis as well. She denies chest pain, and she also denies any fever. She apparently mention to the emergency department physician, but she was having chills as well. She did have coronavirus infection, in February. She was on BiPAP, with settings of 12/6, 40%. She is getting saline at 100 cc an hour. She is also on nasal O2 at [address] angiogram, that was negative, for PE, and also negative for infiltrate/pneumonia. She was initially thought to have a pneumonia. A procalcitonin level was ordered. She was placed on azithromycin, and Zosyn. White count is 9.5, hemoglobin 11, hematocrit 34.2, platelet count normal. Coagulation studies are normal. Sodium 137, potassium 3.5, chlorides 100, CO2 26, anion gap 11, BUN 13, creatinine 0.56. Glucose is 197. Hemoglobin A1c was 6.4. Calcium 9.5. Procalcitonin level was normal at 0.20. Viral screen was negative. Chest x-ray suggested the possibility of a right sided infiltrate. That was not seen on the patient's CT scan. The CT angiogram was negative for PE. Progress note dated July 05, 2024. 59-year-old female well-known to our service. She has a history of tracheomalacia, severe, with previous tracheoplasty. The patient also has a hi story of asthma, and follows with one of my partners in the office for her lung issues. She presents to the emergency department with increasing shortness of breath, cough, chest congestion, wheezing, and phlegm production. The patient had a CT angiogram that was negative for pulmonary embolism. The patient was placed on antibiotics. She was also placed on bronchodilators and corticosteroids. She is seen today in room 378. She is doing a bit better today than she did yesterday. She is currently on 3 L. She continues on azithromycin and Zosyn. The patient did use BiPAP, with settings of 12/6, and 40%. In addition, the patient is on Solu-Medrol, DuoNebs, and Symbicort. White count was 14.8, hemoglobin 10.7, hematocrit 34, platelet count 255,000. Sodium 141, potassium 3.9, chlorides 106, CO2 26, BUN 16, creatinine 0.67. Progress note dated July 06, 2024. 59-year-old female well-known to our service. The patient is typically followed by one of my partners. She has a history of severe tracheobronchomalacia, previous tracheoplasty. Currently, the patient is on nasal O2, 3 L. She did use BiPAP last night, with settings of 12/6, and 40%. The patient does have a cough, mostly dry. Not really producing much phlegm. She is a bit better today than she was yesterday. She is thinking that may do a bronchoscopy on her. Current laboratory data includes a white count of 10.8, hemoglobin 10.7, hematocrit 33.7, platelet count 230,000. Sodium 140, potassium 3.4, chloride 103, CO2 29, BUN 19, creatinine 0.78. Glucose is 106. Calcium 9.4. Culture data is thus far negative. Objective - Vital Signs Vital signs: Vital Signs Temp 98.0 F 07/06/24 04:00 Pulse 90 07/06/24 08:59 Resp 20 07/06/24 04:01 BP 100/67 07/06/24 04:00 Pulse Ox 95 07/06/24 08:59 FiO2 40 07/06/24 04:00 Intake & Output 07/05/24 07/06/24 07/06/24 18:59 06:59 18:59 Intake Total 970 140 Balance 970 140 Weight 108.1 kg Intake: IV 10 20 Invasive Line 1 10 20 Oral 960 120 Other: Voiding Method Bedside Commode Bedside Commode # Voids 1 - Exam No acute distress, oriented 3. Currently on nasal O2 at 3 L. HEENT examination is grossly unremarkable. Mucous membranes are moist. No oral lesions. Neck supple. Full range of motion. No adenopathy thyromegaly or neck vein distention. Cardiovascular examination reveals regular rhythm rate. S1-S2 normal. No S3 or S4. No discernible murmur noted. Heart sounds are distant. Lungs reveal scattered bilateral rhonchi. Minimal expiratory wheezes. No crackles. Breath sounds equal bilaterally. No stridor. Abdomen soft bowel sounds are heard. No masses or tenderness. Extremities are intact. No cyanosis clubbing or edema. Skin is without rash or lesion. Neurologic examination is brief but nonfocal. - Labs CBC & Chem 7: 07/06/24 07:07/06/24 07:25 Labs: Abnormal Lab Results - Last 24 Hours (Table) 07/05/24 07/05/24 07/06/24 Range/Units 16:38 19:58 06:07 WBC (4.50-10.00) 10*3/uL RBC (4.10-5.20) 10*6/uL Hgb (12.0-15.0) g/dL Hct (37.2-46.3) % MCH (27.0-32.0) pg MCHC (32.0-37.0) g/dL Immature Gran # (0.00-0.04) 10*3/uL Neutrophils # (1.80-7.70) 10*3/uL Eosinophils # (0.04-0.35) 10*3/uL Potassium (3.5-5.1) mmol/L BUN (7-17) mg/dL Glucose (74-99) mg/dL POC Glucose (mg/dL) 232 H 202 H 137 H (70-110) mg/dL 07/06/24 07/06/24 Range/Units 07:25 07:25 WBC 10.82 H (4.50-10.00) 10*3/uL RBC 4.06 L (4.10-5.20) 10*6/uL Hgb 10.7 L (12.0-15.0) g/dL Hct 33.7 L (37.2-46.3) % MCH 26.4 L (27.0-32.0) pg MCHC 31.8 L (32.0-37.0) g/dL Immature Gran # 0.07 H (0.00-0.04) 10*3/uL Neutrophils # 8.52 H (1.80-7.70) 10*3/uL Eosinophils # 0.01 L (0.04-0.35) 10*3/uL Potassium 3.4 L (3.5-5.1) mmol/L BUN 19 H (7-17) mg/dL Glucose 106 H (74-99) mg/dL POC Glucose (mg/dL) (70-110) mg/dL Microbiology - Last 24 Hours (Table) 07/05/24 08:25 Gram Stain - Preliminary Sputum 07/03/24 16:26 Blood Culture - Preliminary Blood Assessment and Plan Assessment: Acute respiratory illness, characterized by shortness of breath, cough, chest congestion, and rare phlegm production, likely related to acute tracheobronchitis, rather than pneumonia. History of tracheobronchomalacia, S/P tracheal surgery 2021. Prior history of tracheal stent placement. History of chronic bronchial asthma. Gastroesophageal reflux disease. History of hyperlipidemia. History of hypertension. History of obstructive sleep apnea syndrome. Diabetes mellitus. Obesity. Iron deficiency anemia. Postural orthostatic tachycardia syndrome. Multiple other medical problems and comorbidities. Plan: Plan dated July 04, 2024. The patient was seen in the emergency department, room 23. She is on 3 L nasal cannula. She is getting saline at 100 cc an hour. The patient was placed on azithromycin, and Zosyn empirically. The antibiotic should be discontinued, or de-escalated as her procalcitonin level is normal. She has CT angiogram, which was negative for pulmonary embolism. There was no acute infiltrate, although it was suggested, based on the patient's chest x-ray. Labs, x-rays, and m edications are reviewed. Will continue to follow the patient. Prognosis is guarded. She likely will undergo a bronchoscopy next week. Dictation was produced using [employer] dictation software. Please excuse any grammatical, word or spelling errors. Plan dated July 05, 2024. The patient is seen today in room 378. She is feeling a bit better today than yesterday. Yesterday she was seen in the emergency department. She continues on nasal O2 3 L. She did use BiPAP last night, with settings of 12/6, 40%. She continues on breathing treatments, Solu-Medrol, Symbicort. All labs, x-rays, and medications are reviewed. Procalcitonin level was less than 0.20, x 2. We will continue to follow the patient, make recommendations. 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 Dictation was produced using [employer] software. Please excuse any grammatical, word or spelling errors. Plan dated July 06, 2024. The patient is again seen today in room 378. She is sitting up in bed, having her breakfast. The patient did use BiPAP last night, with settings of 12/6, and 40%. He is currently on 3 L nasal cannula. She does feel better today. Her cough is mostly dry. She is not really producing any phlegm. Labs, x-rays, and medications are reviewed. We will continue to follow make recommendations were appropriate. She is thinking that my partner may want to do a bronchoscopy on her. Prognosis is guarded. Dictation was produced using [employer] software. Please excuse any grammatical, word or spelling errors. Time with Patient: Less than 30
[2024-07-06] MEDS ORDERED: Potassium Replacement Protocol 1 EACH MISC MISCELLANE PRN (09:28)
[2024-07-06] MEDS: predniSONE 20 MG TAB PO SCH (09:30)
[2024-07-06] MEDS: POTASSIUM CHLORIDE ER 20 MEQ TAB.ER PO SCH (09:35)
[2024-07-06 11:20] LABS: Glucose,Whole Blood 151 mg/dL (70-110)
--- NOTE | 2024-07-06 12:58 | P.PN ---
Subjective Progress Note Date: 07/06/24 Hospital Course: Patient is 59-year-old female past medical history of tracheomalacia, asthma pr esents today for shortness of breath. Patient states that her shortness of breath has progressively worsened over the last week, particularly over the last 3 days. She does endorse seeing pulmonology, and has been taking prednisone taper last week which she has now finished, and had chest x-ray done without signs of pneumonia. During this time she endorses a cough with thick green-hale sputum. This morning was blood-streaked. She wears oxygen at home intermittently 2 to 3 L as needed during the day and 4 L with CPAP at night. She does endorse some chills, without fever. She also has sore throat, runny nose which she attributes to worsening allergies over the last week. She also endorses palpitations, which are typically controlled with metoprolol however worse over this time period as well. Spoke with the ER physician, patient admission was accepted by internal medicine service for treatment. Subjective: Patient seen and examined at bedside. No acute events overnight. She feels more short of breath today, continues to have cough, reports that she was able to bring up some phlegm today, feels more wheezy, swelling is getting better after Lasix Pertinent positives and negatives as discussed above, a complete review of systems was performed and all other systems are negative. Vitals: Signs Reviewed Physical Exam: General: nontoxic, no distress, appears at stated age Derm: warm, dry, intact Head: atraumatic, normocephalic, symmetric Eyes: EOMI, anicteric sclera Mouth: no lip lesion, mucus membranes moist Cardiovascular: S1 S2 reg, no murmur, rubs, or gallops Lungs: Distant breath sounds bilateral, diffuse rhonchi bilaterally, no rales, no accessory muscle use Abdominal: soft, non-tender to palpataion, no appreciable organomegaly Extremities: no gross muscle atrophy, no edema, no contractures Neuro: Alert, Oriented, CNII-XII grossly intact, gait normal Psych: well appearing, appropriate affect EKG independently interpreted showed sinus heart rate of 94, low voltage QRS, QTc 431 Chest x-ray done independently interpreted showed mild infiltrate right base CT angiogram of chest findings of no acute pulmonary embolism, no acute pulmonary process, mild asymmetry right vocal cord. Data Received Today: Labs significant for WBC improving to 10.82, hemoglobin 10.7, platelet count normal, sodium normal potassium 3.4, blood glucose controlled, magnesium 2.0 Imaging: N/A Assessment and Plan: In summary, Patient is 59-year-old female past medical history of tracheomalacia, asthma presents today for shortness of breath. #Acute on chronic hypoxic respiratory failure in the setting of acute trachealbronchitis and bronchiectasis #Suspected underlying COPD exacerbation #History of tracheomalacia #History of asthma #Leukocytosis, neutrophilic predominant with left shift Respiratory rate 24, pulse 108, WBC 13 on admission - CXR findings of mild infiltrate right base, not seen on CT - Preliminary blood culture displaying no growth after 24 hours, sputum culture pending - Viral respiratory panel negative, Legionella negative, procalcitonin < 0.20 - IVPB Azithromycin 500 mg, finished IV Zosyn has been discontinued - DuoNebs [id number], Symbicort 160-4.5 2 puffs twice daily Singulair 10 mg p.o. daily - Solu-medrol switch to oral prednisone 40 mg daily for 3 more days Fluids have been discontinued Sputum cultures negative - Give supplemental O2 via NC goal of 88-92% spO2, transition to BiPAP if worsening Pulmonology note reviewed, consider de-escalating antibiotics due to normal procalcitonin level; possible bronchoscopy next week Lower extremity edema -resume home Lasix 20 mg daily, switch to scheduled instead of as needed #. Inm-pdzneva-oushqfcqf diabetes mellitus #. Hyperglycemia Diabetes managed by diet at home, A1c 6.4% POC glucose in the past 24 hours ranged between 187 Expect glucose to trend downward after converting IV steroids to PO Humalog 3 units SQ AC-TID, Lantus 5 units SQ AM Hyperglycemia status post Decadron Low-dose insulin sliding scale SQ Accu-Cheks ACHS Monitor for hypoglycemia Chronic Medical Conditions: GERD: Protonix 40 mg p.o. twice daily Hyperlipidemia: Atorvastatin Hypertension: Metoprolol succinate 50 mg p.o. daily Sleep apnea on CPAP Hypothyroidism DVT ppx: Subq Lovenox 40 meq daily Code status: Full code Anticipated discharge place: Home Anticipated discharge time: > 2 days Objective - Vital Signs Vital signs: Vital Signs Temp 98.2 F 07/06/24 09:10 Pulse 92 07/06/24 12:20 Resp 22 07/06/24 09:10 BP 121/75 07/06/24 09:10 Pulse Ox 99 07/06/24 09:10 FiO2 40 07/06/24 04:00 Intake & Output 07/05/24 07/06/24 07/06/24 18:59 06:59 18:59 Intake Total 970 140 360 Balance 970 140 360 Weight 108.1 kg Intake: IV 10 20 Invasive Line 1 10 20 Oral 960 120 360 Other: Voiding Method Bedside Commode Bedside Commode Bedside Commode # Voids 1 - Labs CBC & Chem 7: 07/06/24 07:25 07/06/24 07:25 Labs: Abnormal Lab Results - Last 24 Hours (Table) 07/05/24 07/05/24 07/06/24 Range/Units 16:38 19:58 06:07 WBC (4.50-10.00) 10*3/uL RBC (4.10-5.20) 10*6/uL Hgb (12.0-15.0) g/dL Hct (37.2-46.3) % MCH (27.0-32.0) pg MCHC (32.0-37.0) g/dL Immature Gran # (0.00-0.04) 10*3/uL Neutrophils # (1.80-7.70) 10*3/uL Eosinophils # (0.04-0.35) 10*3/uL Potassium (3.5-5.1) mmol/L BUN (7-17) mg/dL Glucose (74-99) mg/dL POC Glucose (mg/dL) 232 H 202 H 137 H (70-110) mg/dL 07/06/24 07/06/24 07/06/24 Range/Units 07:25 07:25 11:13 WBC 10.82 H (4.50-10.00) 10*3/uL RBC 4.06 L (4.10-5.20) 10*6/uL Hgb 10.7 L (12.0-15.0) g/dL Hct 33.7 L (37.2-46.3) % MCH 26.4 L (27.0-32.0) pg MCHC 31.8 L (32.0-37.0) g/dL Immature Gran # 0.07 H (0.00-0.04) 10*3/uL Neutrophils # 8.52 H (1.80-7.70) 10*3/uL Eosinophils # 0.01 L (0.04-0.35) 10*3/uL Potassium 3.4 L (3.5-5.1) mmol/L BUN 19 H (7-17) mg/dL Glucose 106 H (74-99) mg/dL POC Glucose (mg/dL) 151 H (70-110) mg/dL Microbiology - Last 24 Hours (Table) 07/05/24 08:25 Gram Stain - Preliminary Sputum 07/03/24 16:26 Blood Culture - Preliminary Blood
[2024-07-06] MEDS: FUROSEMIDE 20 MG TAB PO SCH (16:25)
[2024-07-06 16:35] LABS: Glucose,Whole Blood 188 mg/dL (70-110)
[2024-07-06 20:19] LABS: Glucose,Whole Blood 194 mg/dL (70-110)
[2024-07-07 06:12] LABS: Glucose,Whole Blood 99 mg/dL (70-110)
[2024-07-07 08:12] LABS: African American GFR (CKD) >90 (>60 ml/min/1.73 sqM); Anion Gap 9 mmol/L; Blood Urea Nitrogen 15 mg/dL (7-17); Calcium 9.4 mg/dL (8.4-10.2); Carbon Dioxide 27 mmol/L (22-30); Chloride 101 mmol/L (98-107); Glucose 115 mg/dL (74-99); Non-African American GFR(CKD) >90 (>60 ml/min/1.73 sqM); Potassium 3.4 mmol/L (3.5-5.1); Sodium 137 mmol/L (137-145)
[2024-07-07] MEDS ORDERED: TEZEPELUMAB EKKO 210 MG/1.91 ML SQ SCH (10:45)
[2024-07-07 11:16] LABS: Glucose,Whole Blood 134 mg/dL (70-110)
[2024-07-07] MEDS: FUROSEMIDE 10 MG/ML 2 ML VIAL IV SCH (11:28)
[2024-07-07] MEDS: POTASSIUM CHLORIDE ER 20 MEQ TAB.ER PO STA (11:28)
[2024-07-07] MEDS: TRIAMTERENE-HCTZ 37.5-25MG 1 EACH CAP PO SCH (11:29)
[2024-07-07] MEDS: methylPREDNISolone SOD SUCCI 125 MG/2 ML VIAL IV SCH (13:16)
--- NOTE | 2024-07-07 13:24 | P.PN ---
Subjective Progress Note Date: 07/07/24 On 07/07/2024, the patient is being seen for a follow-up. Remains to have a congested cough. Limited sputum production. Remains to be hypoxic and the patient is currently in 60s of O2 nasal cannula. Sputum sample was collected earlier and the culture was positive for Neelima. The patient remains on DuoNeb nebulizer treatments [id number], she is on Symbicort and prednisone burst taper that was started yesterday. I suggested putting the patient back on IV Solu-Medrol. Remains on Spiriva. She is also having some increased edema lower extremities bilaterally. She will benefit from IV diuretics. Labs from yesterday showed a hemoglobin of 10.7, white cell count of 10.8, sodium is at 137, potassium is at 3.4, BUN is 50 with a creatinine of 0.7. Continues to have a congested cough. She has a BiPAP with a right-sided pressure of 12 or 6 with an FiO2 of 40%. Objective - Vital Signs Vital signs: Vital Signs Temp 98 F 07/07/24 08:00 Pulse 88 07/07/24 09:55 Resp 18 07/07/24 08:00 BP 123/77 07/07/24 08:00 Pulse Ox 96 07/07/24 08:00 FiO2 40 07/07/24 04:01 Intake & Output 07/06/24 07/07/24 07/07/24 18:59 06:59 18:59 Intake Total 960 120 10 Balance 960 120 10 Weight 108.3 kg Intake: IV 10 Invasive Line 1 10 Oral 960 120 Other: Voiding Method Bedside Commode Bedside Commode Toilet External Catheter External Catheter # Voids 2 1 - Exam No acute distress, oriented 3. Currently on nasal O2 at 5 L of oxygen by nasal cannula, obese with a BMI of 46.6 HEENT examination is grossly unremarkable. Mucous membranes are moist. No oral lesions. Neck supple. Full range of motion. No adenopathy thyromegaly or neck vein distention. Cardiovascular examination reveals regular rhythm rate. S1-S2 normal. No S3 or S4. No discernible murmur noted. Heart sounds are distant. Lungs reveal scattered bilateral rhonchi. Minimal expiratory wheezes. No crackles. Breath sounds equal bilaterally. No stridor. Abdomen soft bowel sounds are heard. No masses or tenderness. Extremities are intact. No cyanosis clubbing and there is +1 pitting edema lower extremities bilaterally. Skin is without rash or lesion. Neurologic examination is brief but nonfocal. - Labs CBC & Chem 7: 07/06/24 07:25 07/07/24 07:40 Labs: Abnormal Lab Results - Last 24 Hours (Table) 07/06/24 07/06/24 07/06/24 Range/Units 11:13 16:28 20:15 Potassium (3.5-5.1) mmol/L Glucose (74-99) mg/dL POC Glucose (mg/dL) 151 H 188 H 194 H (70-110) mg/dL 07/07/24 Range/Units 07:40 Potassium 3.4 L (3.5-5.1) mmol/L Glucose 115 H (74-99) mg/dL POC Glucose (mg/dL) (70-110) mg/dL Microbiology - Last 24 Hours (Table) 07/05/24 08:25 Gram Stain - Final Sputum Sputum Culture - Final Neelima albicans 07/03/24 16:26 Blood Culture - Preliminary Blood Assessment and Plan Plan: Acute tracheobronchitis, no evidence of any pneumonia. Procalcitonin level is not elevated. CAT scan of the chest shows no airspace disease or consolidation. No significant leukocytosis. Sputum cultures positive for Neelima. Acute on chronic hypoxic respiratory failure, currently on 5 L of oxygen by nasal cannula History of tracheobronchomalacia, S/P tracheal surgery 2021. History of chronic bronchial asthma, maintained on a combination of Breztri and Tezspire on outpatient basis. Gastroesophageal reflux disease. History of hyperlipidemia. History of hypertension. History of obstructive sleep apnea syndrome. Diabetes mellitus. Obesity. Iron deficiency anemia. Postural orthostatic tachycardia syndrome. Multiple other medical problems and comorbidities. Plan: Titrate oxygen flow to maintain saturation above 90% Continue DuoNeb updrafts Continue Symbicort Switch this patient to IV Solu-Medrol 60 mg every 6 hours Lasix 20 mg IV every 12 hours BiPAP support overnight pressures of 12/6 with an FiO2 of 40% Resume home medications Possible bronchoscopy if no improvement within the next 24 to 48 hours. Time with Patient: Greater than 30
--- NOTE | 2024-07-07 13:47 | P.PN ---
Subjective Progress Note Date: 07/07/24 Hospital Course: Patient is 59-year-old female past medical history of tracheomalacia, asthma pr esents today for shortness of breath. Patient states that her shortness of breath has progressively worsened over the last week, particularly over the last 3 days. She does endorse seeing pulmonology, and has been taking prednisone taper last week which she has now finished, and had chest x-ray done without signs of pneumonia. During this time she endorses a cough with thick green-hale sputum. This morning was blood-streaked. She wears oxygen at home intermittently 2 to 3 L as needed during the day and 4 L with CPAP at night. She does endorse some chills, without fever. She also has sore throat, runny nose which she attributes to worsening allergies over the last week. She also endorses palpitations, which are typically controlled with metoprolol however worse over this time period as well. Spoke with the ER physician, patient admission was accepted by internal medicine service for treatment. Subjective: Patient seen and examined at bedside. No acute events overnight. Patient still feels shortness of breath today. Also reports coughing up yellow-greenish sputum. Denies chest pain, nausea, vomiting, diarrhea, belly pain, lower extremity edema. Pertinent positives and negatives as discussed above, a complete review of systems was performed and all other systems are negative. Vitals: Signs Reviewed Physical Exam: General: nontoxic, no distress, appears at stated age Derm: warm, dry, intact Head: atraumatic, normocephalic, symmetric Eyes: EOMI, anicteric sclera Mouth: no lip lesion, mucus membranes moist Cardiovascular: S1 S2 reg, no murmur, rubs, or gallops Lungs: Diffuse rhonchi bilaterally, no rales, no wheezing, no accessory muscle use Abdominal: soft, non-tender to palpataion, no appreciable organomegaly Extremities: no gross muscle atrophy, no edema, no contractures Neuro: Alert, Oriented, CNII-XII grossly intact, gait normal Psych: well appearing, appropriate affect EKG independently interpreted showed sinus heart rate of 94, low voltage QRS, QTc 431 Chest x-ray done independently interpreted showed mild infiltrate right base CT angiogram of chest findings of no acute pulmonary embolism, no acute pulmonary process, mild asymmetry right vocal cord. Data Received Today: Labs significant for sodium 137, potassium 3.4, BUN 15, creatinine 0.71, glucose 134 Imaging: N/A Assessment and Plan: In summary, Patient is 59-year-old female past medical history of tracheomalacia, asthma presents today for shortness of breath. #Acute on chronic hypoxic respiratory failure in the setting of acute tracheobronchitis and bronchiectasis #Suspected underlying COPD exacerbation #History of tracheomalacia #History of asthma #Leukocytosis, neutrophilic predominant with left shift - CXR findings of mild infiltrate right base, not seen on CT - Preliminary blood culture showed no growth, sputum culture showed moderate growth of Neelima albicans - Viral respiratory panel negative, Legionella negative, procalcitonin < 0.20 - Have discontinued antibiotics - DuoNebs [id number], Symbicort 160-4.5 2 puffs twice daily -Singulair 10 mg p.o. daily - Patient will be started on IV prednisone 60 every 6 hours -Discussed with pulmonology, possible bronchoscopy if no improvement within the next 24 to 48 hours. - Give supplemental O2 via NC goal of 88-92% spO2, transition to BiPAP if worsening Morning CBC #. Hypokalemia Potassium of 3.4 Order potassium chloride 40 mEq x 1 Monitor morning BMP #. Lower extremity edema Continue Lasix 20 mg IV every 12 hours #. Ubw-jdmdxtu-lzeojwzhk diabetes mellitus #. Hyperglycemia Diabetes managed by diet at home, A1c 6.4% POC glucose in the past 24 hours ranged between 130s to 240 Humalog 3 units SQ AC-TID, Lantus 5 units SQ AM Low-dose insulin sliding scale SQ Accu-Cheks ACHS Monitor for hypoglycemia Chronic Medical Conditions: GERD: Protonix 40 mg p.o. twice daily Hyperlipidemia: Atorvastatin 20 daily Hypertension: Continue metoprolol succinate 50 mg p.o. daily and triamterene hydrochlorothiazide 37.5-25 mg daily Sleep apnea on CPAP, currently on BiPAP at night DVT ppx: Subq Lovenox 40 meq daily Code status: Full code Anticipated discharge place: Home Anticipated discharge time: > 2 days I have seen and evaluated the patient today. Discussed with the resident and agree with the residents finding and plan as documented in the resident's note. Changes highlighted in blue font. Objective - Vital Signs Vital signs: Vital Signs Temp 97.6 F 07/07/24 04:01 Pulse 67 07/07/24 04:01 Resp 18 07/07/24 04:01 BP 120/80 07/07/24 04:01 Pulse Ox 99 07/07/24 04:01 FiO2 40 07/07/24 04:01 Intake & Output 07/06/24 07/06/24 07/07/24 06:59 18:59 06:59 Intake Total 140 960 120 Balance 140 960 120 Weight 108.1 kg 108.3 kg Intake: IV 20 Invasive Line 1 20 Oral 120 960 120 Other: Voiding Method Bedside Commode Bedside Commode Bedside Commode External Catheter External Catheter # Voids 1 2 1 - Labs CBC & Chem 7: 07/06/24 07:25 07/07/24 07:40 Labs: Abnormal Lab Results - Last 24 Hours (Table) 07/06/24 07/06/24 07/06/24 Range/Units 07:25 07:25 11:13 WBC 10.82 H (4.50-10.00) 10*3/uL RBC 4.06 L (4.10-5.20) 10*6/uL Hgb 10.7 L (12.0-15.0) g/dL Hct 33.7 L (37.2-46.3) % MCH 26.4 L (27.0-32.0) pg MCHC 31.8 L (32.0-37.0) g/dL Immature Gran # 0.07 H (0.00-0.04) 10*3/uL Neutrophils # 8.52 H (1.80-7.70) 10*3/uL Eosinophils # 0.01 L (0.04-0.35) 10*3/uL Potassium 3.4 L (3.5-5.1) mmol/L BUN 19 H (7-17) mg/dL Glucose 106 H (74-99) mg/dL POC Glucose (mg/dL) 151 H (70-110) mg/dL 07/06/24 07/06/24 Range/Units 16:28 20:15 WBC (4.50-10.00) 10*3/uL RBC (4.10-5.20) 10*6/uL Hgb (12.0-15.0) g/dL Hct (37.2-46.3) % MCH (27.0-32.0) pg MCHC (32.0-37.0) g/dL Immature Gran # (0.00-0.04) 10*3/uL Neutrophils # (1.80-7.70) 10*3/uL Eosinophils # (0.04-0.35) 10*3/uL Potassium (3.5-5.1) mmol/L BUN (7-17) mg/dL Glucose (74-99) mg/dL POC Glucose (mg/dL) 188 H 194 H (70-110) mg/dL Microbiology - Last 24 Hours (Table) 07/03/24 16:26 Blood Culture - Preliminary Blood 07/05/24 08:25 Gram Stain - Preliminary Sputum Sputum Culture - Preliminary
[2024-07-07 16:42] LABS: Glucose,Whole Blood 173 mg/dL (70-110)
[2024-07-07 20:46] LABS: Glucose,Whole Blood 289 mg/dL (70-110)
[2024-07-08 06:12] LABS: Glucose,Whole Blood 155 mg/dL (70-110)
[2024-07-08 07:06] LABS: African American GFR (CKD) >90 (>60 ml/min/1.73 sqM); Anion Gap 8 mmol/L; Blood Urea Nitrogen 20 mg/dL (7-17); Calcium 9.8 mg/dL (8.4-10.2); Carbon Dioxide 30 mmol/L (22-30); Chloride 99 mmol/L (98-107); Glucose 164 mg/dL (74-99); Non-African American GFR(CKD) >90 (>60 ml/min/1.73 sqM); Sodium 137 mmol/L (137-145)
[2024-07-08 07:35] LABS: Basophils # (A) 0.02 10*3/uL (0.00-0.10); Basophils % (A) 0.2 %; HCT 37.1 % (37.2-46.3); HGB 12.1 g/dL (12.0-15.0); Lymphocytes # (A) 1.36 10*3/uL (0.90-5.00); Lymphocytes % (A) 11.8 %; MCH 26.1 pg (27.0-32.0); MCHC 32.6 g/dL (32.0-37.0); MCV 80.1 fL (80.0-97.0); Mean Platelet Volume 10.5 fL (9.5-12.2); Monocytes # (A) 0.23 10*3/uL (0.20-1.00); Neutrophils # (A) 9.86 10*3/uL (1.80-7.70); Neutrophils % (A) 85.3 %; Platelet Count 214 10*3/uL (140-440); RBC 4.63 10*6/uL (4.10-5.20); RDW 15.2 % (11.5-14.5); WBC 11.55 10*3/uL (4.50-10.00)
[2024-07-08] MEDS: TIOTROPIUM 2.5 MCG INHALER INHALATION SCH (09:18)
--- NOTE | 2024-07-08 10:50 | P.PN ---
Subjective Progress Note Date: 07/08/24 On 07/07/2024, the patient is being seen for a follow-up. Remains to have a congested cough. Limited sputum production. Remains to be hypoxic and the patient is currently in 60s of O2 nasal cannula. Sputum sample was collected earlier and the culture was positive for Neelima. The patient remains on DuoNeb nebulizer treatments [id number], she is on Symbicort and prednisone burst taper that was started yesterday. I suggested putting the patient back on IV Solu-Medrol. Remains on Spiriva. She is also having some increased edema lower extremities bilaterally. She will benefit from IV diuretics. Labs from yesterday showed a hemoglobin of 10.7, white cell count of 10.8, sodium is at 137, potassium is at 3.4, BUN is 50 with a creatinine of 0.7. Continues to have a congested cough. She has a BiPAP with a right-sided pressure of 12 or 6 with an FiO2 of 40%. On 07/08/2024, the patient is still coughing and she remains bronchospastic and wheezy. She was started back on IV Solu-Medrol yesterday. Minimal sputum production at this point in time. Afebrile. She remains on oxygen and she is on 3 L of O2 nasal cannula. She remains on Symbicort Solu-Medrol and DuoNeb updrafts. No altered mentation. The white cell count is 11 with a hemoglobin of 12 and a platelet count of 214. Electrolytes are all within normal limits, BUN is 20 and the creatinine is currently at 0.66. Objective - Vital Signs Vital signs: Vital Signs Temp 97.7 F 07/08/24 04:18 Pulse 70 07/08/24 04:18 Resp 20 07/08/24 04:18 BP 136/78 07/08/24 04:18 Pulse Ox 96 07/08/24 04:18 FiO2 40 07/08/24 05:38 Intake & Output 07/07/24 07/08/24 07/08/24 18:59 06:59 18:59 Intake Total 740 20 Output Total 1150 Balance 740 -1130 Weight 104.7 kg Intake: IV 20 20 Invasive Line 1 20 20 Oral 720 Output: Urine 1150 Other: Voiding Method Toilet Toilet # Voids 2 - Exam No acute distress, oriented 3. Currently on nasal O2 at 3 L of oxygen by nasal cannula, obese with a BMI of 46.6 HEENT examination is grossly unremarkable. Mucous membranes are moist. No oral lesions. Neck supple. Full range of motion. No adenopathy thyromegaly or neck vein distention. Cardiovascular examination reveals regular rhythm rate. S1-S2 normal. No S3 or S4. No discernible murmur noted. Heart sounds are distant. Lungs reveal scattered bilateral rhonchi. Minimal expiratory wheezes. No crackles. Breath sounds equal bilaterally. No stridor. Abdomen soft bowel sounds are heard. No masses or tenderness. Extremities are intact. No cyanosis clubbing and there is +1 pitting edema lower extremities bilaterally. Skin is without rash or lesion. Neurologic examination is brief but nonfocal. - Labs CBC & Chem 7: 07/08/24 06:20 07/08/24 06:20 Labs: Abnormal Lab Results - Last 24 Hours (Table) 07/07/24 07/07/24 07/07/24 Range/Units 11:14 16:40 20:45 WBC (4.50-10.00) 10*3/uL Hct (37.2-46.3) % MCH (27.0-32.0) pg Immature Gran # (0.00-0.04) 10*3/uL BUN (7-17) mg/dL Glucose (74-99) mg/dL POC Glucose (mg/dL) 134 H 173 H 289 H (70-110) mg/dL 07/08/24 07/08/24 07/08/24 Range/Units 06:11 06:20 06:20 WBC 11.55 H (4.50-10.00) 10*3/uL Hct 37.1 L (37.2-46.3) % MCH 26.1 L (27.0-32.0) pg Immature Gran # 0.08 H (0.00-0.04) 10*3/uL BUN 20 H (7-17) mg/dL Glucose 164 H (74-99) mg/dL POC Glucose (mg/dL) 155 H (70-110) mg/dL Microbiology - Last 24 Hours (Table) 07/07/24 11:55 Gram Stain - Preliminary Sputum 07/05/24 08:25 Gram Stain - Final Sputum Sputum Culture - Final Neelima albicans Assessment and Plan Plan: Acute tracheobronchitis, no evidence of any pneumonia. Procalcitonin level is not elevated. CAT scan of the chest shows no airspace disease or consolidation. No significant leukocytosis. Sputum cultures positive for Neelima. Acute on chronic hypoxic respiratory failure, currently on 3 L of oxygen by nasal cannula History of tracheobronchomalacia, S/P tracheal surgery 2021. History of chronic bronchial asthma, maintained on a combination of Breztri and Tezspire on outpatient basis. Gastroesophageal reflux disease. History of hyperlipidemia. History of hypertension. History of obstructive sleep apnea syndrome. Diabetes mellitus. Obesity. Iron deficiency anemia. Postural orthostatic tachycardia syndrome. Multiple other medical problems and comorbidities. Plan: Slightly improved compared to yesterday Titrate oxygen flow to maintain saturation above 90% Continue DuoNeb updrafts Discontinue Symbicort and put the patient on Perforomist and Pulmicort nebulized treatments twice a day Continue IV Solu-Medrol 60 mg every 6 hours Lasix 20 mg IV every 12 hours BiPAP support overnight pressures of 12/6 with an FiO2 of 40% Resume home medications Possible bronchoscopy if no improvement within the next 24 to 48 hours. Time with Patient: Greater than 30
[2024-07-08] MEDS: FLUCONAZOLE 150 MG TAB PO SCH (11:23)
[2024-07-08 11:39] LABS: Glucose,Whole Blood 137 mg/dL (70-110)
--- NOTE | 2024-07-08 12:33 | P.PN ---
Subjective Progress Note Date: 07/08/24 Subjective: Patient seen and examined at bedside. No acute events overnight. Still having significant cough which is productive, and shortness of breath. She is also having some pain with swallowing. Pertinent positives and negatives as discussed above, a complete review of systems was performed and all other systems are negative. Vitals Signs Reviewed. General: Nontoxic, no distress, appears at stated age, morbidly obese Derm: Warm, dry Head: Atraumatic, normocephalic, symmetric Eyes: EOMI, no lid lag, anicteric sclera Mouth: No lip lesion, mucus membranes moist, oral thrush with no significant erythema Cardiovascular: S1S2 reg, no murmur Lungs: Reduced breath sounds bilaterally, occasional expiratory wheezing, supplemental oxygen Abdominal: Soft, nontender to palpation, no guarding, no appreciable organomegaly Ext: No gross muscle atrophy, no edema, no contractures Neuro: CN II-XI grossly intact, no focal neuro deficits Psych: Alert, oriented, appropriate affect Data Reviewed Today: Pertinent Labs: WBC 11.55, hemoglobin 12.1, creatinine 0.66, potassium 4, blood sugars range between 137-164 Imaging: No new imaging Assessment and Plan: Active: Acute on chronic hypoxic respiratory failure Acute COPD exacerbation Bronchiectasis History of tracheomalacia Suspected acute tracheobronchitis History of asthma Leukocytosis, likely steroid-induced - Pulmonology note reviewed, started on Pulmicort twice daily, Perforomist twice daily, continue with DuoNebs 4 times daily, every 4 hours as needed - Continue on Solu-Medrol IV 60 every 6 hours - Likely bronchoscopy if no improvement in the next 24 to 48 hours - Wean oxygen, BiPAP support if needed - Continue Singulair 10 mg daily - Patient also on Lasix 20 IV every 12 hours per pulmonology Odontophagia Oral candidiasis - Started on fluconazole 150 daily, continue for 7 days total Type 2 diabetes Hyperglycemia - Lantus 5 units nightly, lispro 3 TID, sliding scale insulin, monitor for hypoglycemia Resolved: Hypokalemia Chronic: GERD Dyslipidemia Hypertension DVT ppx: Lovenox Code status: Full code Anticipated discharge place: Pending clinical course Anticipated discharge time: Pending clinical course Objective - Vital Signs Vital signs: Vital Signs Temp 98.2 F 07/08/24 08:00 Pulse 88 07/08/24 12:29 Resp 18 07/08/24 11:21 BP 110/55 07/08/24 11:21 Pulse Ox 95 07/08/24 11:21 FiO2 40 07/08/24 05:38 Intake & Output 07/07/24 07/08/24 07/08/24 18:59 06:59 18:59 Intake Total 740 20 240 Output Total 1150 400 Balance 740 -1130 -160 Weight 104.7 kg Intake: IV 20 20 Invasive Line 1 20 20 Oral 720 240 Output: Urine 1150 400 Other: Voiding Method Toilet Toilet Toilet # Voids 2 - Labs CBC & Chem 7: 07/08/24 06:20 07/08/24 06:20 Labs: Abnormal Lab Results - Last 24 Hours (Table) 07/07/24 07/07/24 07/08/24 Range/Units 16:40 20:45 06:11 WBC (4.50-10.00) 10*3/uL Hct (37.2-46.3) % MCH (27.0-32.0) pg Immature Gran # (0.00-0.04) 10*3/uL Neutrophils # (1.80-7.70) 10*3/uL Eosinophils # (0.04-0.35) 10*3/uL BUN (7-17) mg/dL Glucose (74-99) mg/dL POC Glucose (mg/dL) 173 H 289 H 155 H (70-110) mg/dL 07/08/24 07/08/24 07/08/24 Range/Units 06:20 06:20 11:37 WBC 11.55 H (4.50-10.00) 10*3/uL Hct 37.1 L (37.2-46.3) % MCH 26.1 L (27.0-32.0) pg Immature Gran # 0.08 H (0.00-0.04) 10*3/uL Neutrophils # 9.86 H (1.80-7.70) 10*3/uL Eosinophils # 0.00 L (0.04-0.35) 10*3/uL BUN 20 H (7-17) mg/dL Glucose 164 H (74-99) mg/dL POC Glucose (mg/dL) 137 H (70-110) mg/dL Microbiology - Last 24 Hours (Table) 07/07/24 11:55 Gram Stain - Preliminary Sputum Sputum Culture - Preliminary
[2024-07-08 16:30] LABS: Glucose,Whole Blood 336 mg/dL (70-110)
[2024-07-08 20:02] LABS: Glucose,Whole Blood 149 mg/dL (70-110)
[2024-07-08] MEDS: BUDESONIDE 0.5 MG/2 ML NEBU INHALATION SCH (21:16)
[2024-07-08] MEDS: FORMOTEROL FUMARATE 20 MCG/2 ML NEBU INHALATION SCH (21:16)
[2024-07-08 22:46] LABS: Glucose,Whole Blood 205 mg/dL (70-110)
[2024-07-09 05:58] LABS: Glucose,Whole Blood 175 mg/dL (70-110)
[2024-07-09 07:22] LABS: African American GFR (CKD) >90 (>60 ml/min/1.73 sqM); Anion Gap 11 mmol/L; Blood Urea Nitrogen 25 mg/dL (7-17); Calcium 9.8 mg/dL (8.4-10.2); Carbon Dioxide 30 mmol/L (22-30); Chloride 97 mmol/L (98-107); Glucose 172 mg/dL (74-99); Non-African American GFR(CKD) 82 (>60 ml/min/1.73 sqM); Potassium 3.7 mmol/L (3.5-5.1); Sodium 138 mmol/L (137-145)
[2024-07-09 08:05] LABS: Basophils # (A) 0.02 10*3/uL (0.00-0.10); Basophils % (A) 0.1 %; HCT 37.5 % (37.2-46.3); HGB 12.4 g/dL (12.0-15.0); Lymphocytes # (A) 1.29 10*3/uL (0.90-5.00); Lymphocytes % (A) 7.3 %; MCH 26.6 pg (27.0-32.0); MCHC 33.1 g/dL (32.0-37.0); MCV 80.5 fL (80.0-97.0); Mean Platelet Volume 10.6 fL (9.5-12.2); Monocytes # (A) 0.44 10*3/uL (0.20-1.00); Monocytes % (A) 2.5 %; Neutrophils # (A) 15.78 10*3/uL (1.80-7.70); Neutrophils % (A) 89.2 %; RBC 4.66 10*6/uL (4.10-5.20); RDW 15.3 % (11.5-14.5); WBC 17.69 10*3/uL (4.50-10.00)
[2024-07-09 09:40] LABS: RBC Morphology Normal
[2024-07-09 09:41] LABS: Platelet Count 281 10*3/uL (140-440)
--- NOTE | 2024-07-09 11:17 | P.PN ---
Subjective Progress Note Date: 07/09/24 Subjective: Patient seen and examined at bedside. No acute events overnight. Patient still reports significant cough with sputum production. Denies chest pain, nausea or vomiting, belly pain, diarrhea, constipation, lower extremity swelling. Pertinent positives and negatives as discussed above, a complete review of systems was performed and all other systems are negative. Vitals Signs Reviewed. General: Nontoxic, no distress, appears at stated age, morbidly obese Derm: Warm, dry Head: Atraumatic, normocephalic, symmetric Eyes: EOMI, no lid lag, anicteric sclera Mouth: No lip lesion, mucus membranes moist, oral thrush with no significant erythema Cardiovascular: S1S2 reg, no murmur Lungs: Reduced breath sounds bilaterally, diffuse expiratory wheezing throughout all lung luevano, supplemental oxygen Abdominal: Soft, nontender to palpation, no guarding, no appreciable organomega ly Ext: No gross muscle atrophy, no edema, no contractures Neuro: CN II-XI grossly intact, no focal neuro deficits Psych: Alert, oriented, appropriate affect Data Reviewed Today: Pertinent Labs: WBC 17.69, sodium 138, BUN 25, creatinine 0.8, glucose 172 Imaging: No new imaging Assessment and Plan: Active: Acute on chronic hypoxic respiratory failure Acute COPD exacerbation Bronchiectasis History of tracheomalacia Suspected acute tracheobronchitis History of asthma Leukocytosis, likely steroid-induced - Continue Pulmicort twice daily, Perforomist twice daily, continue with DuoNebs 4 times daily, every 4 hours as needed - Continue on Solu-Medrol IV 60 every 6 hours -Discussed with pulmonology, bronchoscopy scheduled for tomorrow - Wean oxygen, BiPAP support if needed - Continue Singulair 10 mg daily - Lasix 20 mg IV twice daily has been discontinued Odontophagia Oral candidiasis - Continue fluconazole 150 mg daily Type 2 diabetes Hyperglycemia - Lantus 5 units nightly, continue sliding scale insulin and monitor for hyp oglycemia Resolved: Hypokalemia Chronic: GERD Added bismuth subsalicylate 524 mg Dyslipidemia Hypertension DVT ppx: Lovenox Code status: Full code Anticipated discharge place: Pending clinical course Anticipated discharge time: Pending clinical course I have seen and evaluated the patient today. Discussed with the resident and agree with the residents finding and plan as documented in the resident's note. Changes highlighted in blue font. Objective - Vital Signs Vital signs: Vital Signs Temp 97.7 F 07/09/24 04:01 Pulse 76 07/09/24 05:33 Resp 18 07/09/24 04:01 BP 127/79 07/09/24 04:01 Pulse Ox 99 07/09/24 04:01 FiO2 40 07/09/24 04:01 Intake & Output 07/08/24 07/09/24 07/09/24 18:59 06:59 18:59 Intake Total 720 Output Total 2200 1800 Balance -1480 -1800 Weight 103 kg Intake: Oral 720 Output: Urine 2200 1800 Other: Voiding Method Toilet Toilet - Labs CBC & Chem 7: 07/09/24 06:30 07/09/24 06:30 Labs: Abnormal Lab Results - Last 24 Hours (Table) 07/08/24 07/08/24 07/08/24 Range/Units 06:20 11:37 16:29 WBC 11.55 H (4.50-10.00) 10*3/uL Hct 37.1 L (37.2-46.3) % MCH 26.1 L (27.0-32.0) pg Immature Gran # 0.08 H (0.00-0.04) 10*3/uL Neutrophils # 9.86 H (1.80-7.70) 10*3/uL Eosinophils # 0.00 L (0.04-0.35) 10*3/uL Chloride (98-107) mmol/L BUN (7-17) mg/dL Glucose (74-99) mg/dL POC Glucose (mg/dL) 137 H 336 H (70-110) mg/dL 07/08/24 07/08/24 07/09/24 Range/Units 19:59 22:45 05:56 WBC (4.50-10.00) 10*3/uL Hct (37.2-46.3) % MCH (27.0-32.0) pg Immature Gran # (0.00-0.04) 10*3/uL Neutrophils # (1.80-7.70) 10*3/uL Eosinophils # (0.04-0.35) 10*3/uL Chloride (98-107) mmol/L BUN (7-17) mg/dL Glucose (74-99) mg/dL POC Glucose (mg/dL) 149 H 205 H 175 H (70-110) mg/dL 07/09/24 Range/Units 06:30 WBC (4.50-10.00) 10*3/uL Hct (37.2-46.3) % MCH (27.0-32.0) pg Immature Gran # (0.00-0.04) 10*3/uL Neutrophils # (1.80-7.70) 10*3/uL Eosinophils # (0.04-0.35) 10*3/uL Chloride 97 L (98-107) mmol/L BUN 25 H (7-17) mg/dL Glucose 172 H (74-99) mg/dL POC Glucose (mg/dL) (70-110) mg/dL Microbiology - Last 24 Hours (Table) 07/03/24 16:26 Blood Culture - Final Blood 07/05/24 08:25 Legionella Culture - Preliminary Sputum 07/07/24 11:55 Gram Stain - Preliminary Sputum Sputum Culture - Preliminary
[2024-07-09 11:29] LABS: Glucose,Whole Blood 184 mg/dL (70-110)
[2024-07-09] MEDS: BISMUTH SUBSALICYLATE 4,192 MG/240 ML BOTTLE PO SCH (12:27)
[2024-07-09] MEDS: methylPREDNISolone SOD SUCCI 125 MG/2 ML VIAL IV SCH (12:28)
--- NOTE | 2024-07-09 15:07 | P.PN ---
Subjective Progress Note Date: 07/09/24 On 07/07/2024, the patient is being seen for a follow-up. Remains to have a congested cough. Limited sputum production. Remains to be hypoxic and the patient is currently in 60s of O2 nasal cannula. Sputum sample was collected earlier and the culture was positive for Neelima. The patient remains on DuoNeb nebulizer treatments [id number], she is on Symbicort and prednisone burst taper that was started yesterday. I suggested putting the patient back on IV Solu-Medrol. Remains on Spiriva. She is also having some increased edema lower extremities bilaterally. She will benefit from IV diuretics. Labs from yesterday showed a hemoglobin of 10.7, white cell count of 10.8, sodium is at 137, potassium is at 3.4, BUN is 50 with a creatinine of 0.7. Continues to have a congested cough. She has a BiPAP with a right-sided pressure of 12 or 6 with an FiO2 of 40%. On 07/08/2024, the patient is still coughing and she remains bronchospastic and wheezy. She was started back on IV Solu-Medrol yesterday. Minimal sputum production at this point in time. Afebrile. She remains on oxygen and she is on 3 L of O2 nasal cannula. She remains on Symbicort Solu-Medrol and DuoNeb updrafts. No altered mentation. The white cell count is 11 with a hemoglobin of 12 and a platelet count of 214. Electrolytes are all within normal limits, BUN is 20 and the creatinine is currently at 0.66. On 07/09/2024, the patient remains actively bronchospastic and wheezy. I do not see major improvement over the past 24 hours. The patient is having ups and downs in terms of her breathing. At times she feels better, all the time she has cough and worsening shortness of breath. Nevertheless, on examination, she continues to be active bronchospastic and wheezy. She remains on DuoNeb updrafts. She remains on a combination of Perforomist and Pulmicort nebulized treatments twice a day. She is also on IV Solu-Medrol 60 mg every 6 hours. No fever. No chills. Unable to bring up much of sputum. Most recent sputum analysis from 07/07/2024 was positive for Neelima and the patient is currently on Diflucan. Labs were also noted. White cell count at 17.9, hemoglobin 12.4 and a platelet count of 281. BUN is 25 with a creatinine of 0.8 and sodium levels at 138. Objective - Vital Signs Vital signs: Vital Signs Temp 97.6 F 07/09/24 09:01 Pulse 96 07/09/24 10:16 Resp 18 07/09/24 09:05 BP 137/83 07/09/24 09:01 Pulse Ox 96 07/09/24 09:01 FiO2 40 07/09/24 04:01 Intake & Output 07/08/24 07/09/24 07/09/24 18:59 06:59 18:59 Intake Total 720 250 Output Total 2200 1800 Balance -1480 -1800 250 Weight 103 kg Intake: IV 10 Invasive Line 2 10 Oral 720 240 Output: Urine 2200 1800 Other: Voiding Method Toilet Toilet Toilet - Exam No acute distress, oriented 3. Currently on nasal O2 at 3 L of oxygen by nasal cannula, obese with a BMI of 46.6 HEENT examination is grossly unremarkable. Mucous membranes are moist. No oral lesions. Neck supple. Full range of motion. No adenopathy thyromegaly or neck vein distention. Cardiovascular examination reveals regular rhythm rate. S1-S2 normal. No S3 or S4. No discernible murmur noted. Heart sounds are distant. Lungs reveal scattered bilateral rhonchi. Minimal expiratory wheezes. No crackles. Breath sounds equal bilaterally. No stridor. Abdomen soft bowel sounds are heard. No masses or tenderness. Extremities are intact. No cyanosis clubbing and there is +1 pitting edema lower extremities bilaterally. Skin is without rash or lesion. Neurologic examination is brief but nonfocal. - Labs CBC & Chem 7: 07/09/24 06:30 07/09/24 06:30 Labs: Abnormal Lab Results - Last 24 Hours (Table) 07/08/24 07/08/24 07/08/24 Range/Units 11:37 16:29 19:59 WBC (4.50-10.00) 10*3/uL MCH (27.0-32.0) pg Immature Gran # (0.00-0.04) 10*3/uL Neutrophils # (1.80-7.70) 10*3/uL Eosinophils # (0.04-0.35) 10*3/uL Chloride (98-107) mmol/L BUN (7-17) mg/dL Glucose (74-99) mg/dL POC Glucose (mg/dL) 137 H 336 H 149 H (70-110) mg/dL 07/08/24 07/09/24 07/09/24 Range/Units 22:45 05:56 06:30 WBC 17.69 H (4.50-10.00) 10*3/uL MCH 26.6 L (27.0-32.0) pg Immature Gran # 0.16 H (0.00-0.04) 10*3/uL Neutrophils # 15.78 H (1.80-7.70) 10*3/uL Eosinophils # 0.00 L (0.04-0.35) 10*3/uL Chloride (98-107) mmol/L BUN (7-17) mg/dL Glucose (74-99) mg/dL POC Glucose (mg/dL) 205 H 175 H (70-110) mg/dL 07/09/24 Range/Units 06:30 WBC (4.50-10.00) 10*3/uL MCH (27.0-32.0) pg Immature Gran # (0.00-0.04) 10*3/uL Neutrophils # (1.80-7.70) 10*3/uL Eosinophils # (0.04-0.35) 10*3/uL Chloride 97 L (98-107) mmol/L BUN 25 H (7-17) mg/dL Glucose 172 H (74-99) mg/dL POC Glucose (mg/dL) (70-110) mg/dL Microbiology - Last 24 Hours (Table) 07/07/24 11:55 Gram Stain - Final Sputum Sputum Culture - Final Neelima albicans 07/03/24 16:26 Blood Culture - Final Blood 07/05/24 08:25 Legionella Culture - Preliminary Sputum Assessment and Plan Plan: Acute tracheobronchitis, no evidence of any pneumonia. Procalcitonin level is not elevated. CAT scan of the chest shows no airspace disease or consolidation. No significant leukocytosis. Sputum cultures positive for Neelima. Acute on chronic hypoxic respiratory failure, currently on 3 L of oxygen by nasal cannula History of tracheobronchomalacia, S/P tracheal surgery 2021. History of chronic bronchial asthma, maintained on a combination of Breztri and Tezspire on outpatient basis. Gastroesophageal reflux disease. History of hyperlipidemia. History of hypertension. History of obstructive sleep apnea syndrome. Diabetes mellitus. Obesity. Iron deficiency anemia. Postural orthostatic tachycardia syndrome. Multiple other medical problems and comorbidities. Plan: Fluctuating respiratory status with ups and downs and ongoing difficulties with bronchospasm wheezing and shortness of breath. Titrate oxygen flow to maintain saturation above 90% Continue DuoNeb updrafts Discontinue Symbicort and put the patient on Perforomist and Pulmicort nebulized treatments twice a day Continue IV Solu-Medrol 60 mg every 6 hours Discontinue Lasix as the patient has achieved a negative fluid balance of more than 3 L over the past 24 hours. No significant edema lower extremities. Weight is stable. BiPAP support overnight pressures of 12/6 with an FiO2 of 40% Continue Diflucan Bronchoscopy for upper and lower airway inspection endobronchial lavage to be scheduled for tomorrow. Keep n.p.o. after midnight. Time with Patient: Greater than 30
[2024-07-09 16:38] LABS: Glucose,Whole Blood 239 mg/dL (70-110)
[2024-07-09 20:01] LABS: Glucose,Whole Blood 299 mg/dL (70-110)
[2024-07-10 06:31] LABS: Glucose,Whole Blood 210 mg/dL (70-110)
[2024-07-10 08:32] LABS: Basophils # (A) 0.04 10*3/uL (0.00-0.10); Basophils % (A) 0.3 %; HGB 12.3 g/dL (12.0-15.0); Lymphocytes # (A) 1.12 10*3/uL (0.90-5.00); Lymphocytes % (A) 7.2 %; MCH 26.3 pg (27.0-32.0); MCHC 32.4 g/dL (32.0-37.0); MCV 81.4 fL (80.0-97.0); Mean Platelet Volume 10.4 fL (9.5-12.2); Monocytes # (A) 0.44 10*3/uL (0.20-1.00); Monocytes % (A) 2.8 %; Neutrophils # (A) 13.67 10*3/uL (1.80-7.70); Platelet Count 285 10*3/uL (140-440); RBC 4.67 10*6/uL (4.10-5.20); WBC 15.53 10*3/uL (4.50-10.00)
[2024-07-10 08:44] LABS: ALT 30 U/L (4-34); AST 18 U/L (14-36); African American GFR (CKD) 83 (>60 ml/min/1.73 sqM); Albumin 4.4 g/dL (3.5-5.0); Alkaline Phosphatase 75 U/L (38-126); Anion Gap 8 mmol/L; Blood Urea Nitrogen 23 mg/dL (7-17); Calcium 9.8 mg/dL (8.4-10.2); Carbon Dioxide 33 mmol/L (22-30); Chloride 96 mmol/L (98-107); Glucose 207 mg/dL (74-99); Non-African American GFR(CKD) 72 (>60 ml/min/1.73 sqM); Potassium 3.7 mmol/L (3.5-5.1); Sodium 137 mmol/L (137-145); Total Bilirubin 0.6 mg/dL (0.2-1.3); Total Protein 7.3 g/dL (6.3-8.2)
[2024-07-10] MEDS ORDERED: predniSONE 20 MG TAB PO SCH (09:00)
[2024-07-10] MEDS ORDERED: FUROSEMIDE 40 MG TAB PO SCH (09:00)
[2024-07-10 11:20] LABS: Glucose,Whole Blood 220 mg/dL (70-110)
--- NOTE | 2024-07-10 11:45 | P.PN ---
Subjective Progress Note Date: 07/10/24 Subjective: Patient seen and examined at bedside. No acute events overnight. Patient still reports significant cough with sputum production. Denies chest pain, nausea or vomiting, belly pain, diarrhea, constipation, lower extremity swelling. Pertinent positives and negatives as discussed above, a complete review of systems was performed and all other systems are negative. Vitals Signs Reviewed. General: Nontoxic, no distress, appears at stated age, morbidly obese Derm: Warm, dry Head: Atraumatic, normocephalic, symmetric Eyes: EOMI, no lid lag, anicteric sclera Mouth: No lip lesion, mucus membranes moist, oral thrush with no significant erythema Cardiovascular: S1S2 reg, no murmur Lungs: Reduced breath sounds bilaterally, diffuse expiratory wheezing throughout all lung luevano, supplemental oxygen Abdominal: Soft, nontender to palpation, no guarding, no appreciable organomega ly Ext: No gross muscle atrophy, no edema, no contractures Neuro: CN II-XI grossly intact, no focal neuro deficits Psych: Alert, oriented, appropriate affect Data Reviewed Today: Pertinent Labs: WBC 15.53, hemoglobin 12.3, platelet 285, neutrophils 13.67, BUN 23, creatinine 0.9, glucose 172-207 Imaging: No new imaging Assessment and Plan: Active: Acute on chronic hypoxic respiratory failure Acute COPD exacerbation Bronchiectasis History of tracheomalacia Suspected acute tracheobronchitis History of asthma Leukocytosis, likely steroid-induced - Continue Pulmicort twice daily, Perforomist twice daily, continue with DuoNebs 4 times daily, every 4 hours as needed - Continue on Solu-Medrol IV 60 every 6 hours - Bronchoscopy scheduled for today - Wean oxygen, BiPAP support if needed - Continue Singulair 10 mg daily Odontophagia Oral candidiasis - Continue fluconazole 150 mg daily Type 2 diabetes Hyperglycemia - Increase Lantus to 15 units nightly, continue sliding scale insulin and monitor for hypoglycemia Resolved: Hypokalemia Chronic: GERD Added bismuth subsalicylate 524 mg Dyslipidemia Hypertension DVT ppx: Lovenox Code status: Full code Anticipated discharge place: Pending clinical course Anticipated discharge time: Pending clinical course I have seen and evaluated the patient today. Discussed with the resident and agree with the residents finding and plan as documented in the resident's note. Changes highlighted in blue font. Objective - Vital Signs Vital signs: Vital Signs Temp 97.7 F 07/09/24 20:00 Pulse 80 07/10/24 04:00 Resp 18 07/10/24 04:00 BP 139/71 07/10/24 04:00 Pulse Ox 99 07/10/24 04:00 FiO2 40 07/10/24 03:50 Intake & Output 07/09/24 07/10/24 07/10/24 18:59 06:59 18:59 Intake Total 1032 20 Output Total 1500 1000 Balance -468 -980 Intake: IV 30 20 Invasive Line 2 10 Invasive Line 3 20 20 Oral 1002 Output: Urine 1500 1000 Other: Voiding Method Toilet Toilet - Labs CBC & Chem 7: 07/10/24 08:14 07/10/24 08:14 Labs: Abnormal Lab Results - Last 24 Hours (Table) 07/09/24 07/09/24 07/09/24 Range/Units 06:30 11:27 16:36 Neutrophils # 15.78 H (1.80-7.70) 10*3/uL Eosinophils # 0.00 L (0.04-0.35) 10*3/uL POC Glucose (mg/dL) 184 H 239 H (70-110) mg/dL 07/09/24 07/10/24 Range/Units 20:00 06:30 Neutrophils # (1.80-7.70) 10*3/uL Eosinophils # (0.04-0.35) 10*3/uL POC Glucose (mg/dL) 299 H 210 H (70-110) mg/dL Microbiology - Last 24 Hours (Table) 07/07/24 11:55 Gram Stain - Final Sputum Sputum Culture - Final Neelima albicans
[2024-07-10 12:07] VITALS: BMI 44.3
--- NOTE | 2024-07-10 12:48 | P.PN ---
Subjective Progress Note Date: 07/10/24 On 07/07/2024, the patient is being seen for a follow-up. Remains to have a congested cough. Limited sputum production. Remains to be hypoxic and the patient is currently in 60s of O2 nasal cannula. Sputum sample was collected earlier and the culture was positive for Neelima. The patient remains on DuoNeb nebulizer treatments [id number], she is on Symbicort and prednisone burst taper that was started yesterday. I suggested putting the patient back on IV Solu-Medrol. Remains on Spiriva. She is also having some increased edema lower extremities bilaterally. She will benefit from IV diuretics. Labs from yesterday showed a hemoglobin of 10.7, white cell count of 10.8, sodium is at 137, potassium is at 3.4, BUN is 50 with a creatinine of 0.7. Continues to have a congested cough. She has a BiPAP with a right-sided pressure of 12 or 6 with an FiO2 of 40%. On 07/08/2024, the patient is still coughing and she remains bronchospastic and wheezy. She was started back on IV Solu-Medrol yesterday. Minimal sputum production at this point in time. Afebrile. She remains on oxygen and she is on 3 L of O2 nasal cannula. She remains on Symbicort Solu-Medrol and DuoNeb updrafts. No altered mentation. The white cell count is 11 with a hemoglobin of 12 and a platelet count of 214. Electrolytes are all within normal limits, BUN is 20 and the creatinine is currently at 0.66. On 07/09/2024, the patient remains actively bronchospastic and wheezy. I do not see major improvement over the past 24 hours. The patient is having ups and downs in terms of her breathing. At times she feels better, all the time she has cough and worsening shortness of breath. Nevertheless, on examination, she continues to be active bronchospastic and wheezy. She remains on DuoNeb updrafts. She remains on a combination of Perforomist and Pulmicort nebulized treatments twice a day. She is also on IV Solu-Medrol 60 mg every 6 hours. No fever. No chills. Unable to bring up much of sputum. Most recent sputum analysis from 07/07/2024 was positive for Neelima and the patient is currently on Diflucan. Labs were also noted. White cell count at 17.9, hemoglobin 12.4 and a platelet count of 281. BUN is 25 with a creatinine of 0.8 and sodium levels at 138. On 07/10/2024, the patient is slightly improved and slightly less bronchospastic and wheezy compared to yesterday. She is currently n.p.o. and the patient is going to undergo a bronchoscopy for an upper and lower airway inspection. The patient is on DuoNeb. The patient is on Perforomist and Pulmicort nebulizer he was twice a day and the patient remains on IV Solu-Medrol. Lasix was discontinued. She remains on Lovenox for DVT prophylaxis. Blood work from today was noted. The white cell count is 15.5 with a heme of 12.3 and a platelet count of 285. Electrolytes show a serum bicarb of 33, BUN 23 with a creatinine of 0.9. LFTs are normal. She remains on oxygen and she is currently at 3 L/min nasal cannula. No altered mentation. No other new complaints otherwise for now. Objective - Vital Signs Vital signs: Vital Signs Temp 97.7 F 07/09/24 20:00 Pulse 82 07/10/24 08:47 Resp 18 07/10/24 04:00 BP 139/71 07/10/24 04:00 Pulse Ox 94 L 07/10/24 08:20 FiO2 40 07/10/24 03:50 Intake & Output 07/09/24 07/10/24 07/10/24 18:59 06:59 18:59 Intake Total 1032 20 Output Total 1500 1000 Balance -468 -980 Intake: IV 30 20 Invasive Line 2 10 Invasive Line 3 20 20 Oral 1002 Output: Urine 1500 1000 Other: Voiding Method Toilet Toilet - Exam No acute distress, oriented 3. Currently on nasal O2 at 3 L of oxygen by nasal cannula, obese with a BMI of 46.6 HEENT examination is grossly unremarkable. Mucous membranes are moist. No oral lesions. Neck supple. Full range of motion. No adenopathy thyromegaly or neck vein distention. Cardiovascular examination reveals regular rhythm rate. S1-S2 normal. No S3 or S4. No discernible murmur noted. Heart sounds are distant. Lungs reveal scattered bilateral rhonchi. Minimal expiratory wheezes. No crackles. Breath sounds equal bilaterally. No stridor. Abdomen soft bowel sounds are heard. No masses or tenderness. Extremities are intact. No cyanosis clubbing and there is +1 pitting edema lower extremities bilaterally. Skin is without rash or lesion. Neurologic examination is brief but nonfocal. - Labs CBC & Chem 7: 07/10/24 08:14 07/10/24 08:14 Labs: Abnormal Lab Results - Last 24 Hours (Table) 07/09/24 07/09/24 07/09/24 Range/Units 11:27 16:36 20:00 WBC (4.50-10.00) 10*3/uL MCH (27.0-32.0) pg Immature Gran # (0.00-0.04) 10*3/uL Neutrophils # (1.80-7.70) 10*3/uL Eosinophils # (0.04-0.35) 10*3/uL Chloride (98-107) mmol/L Carbon Dioxide (22-30) mmol/L BUN (7-17) mg/dL Glucose (74-99) mg/dL POC Glucose (mg/dL) 184 H 239 H 299 H (70-110) mg/dL 07/10/24 07/10/24 07/10/24 Range/Units 06:30 08:14 08:14 WBC 15.53 H (4.50-10.00) 10*3/uL MCH 26.3 L (27.0-32.0) pg Immature Gran # 0.26 H (0.00-0.04) 10*3/uL Neutrophils # 13.67 H (1.80-7.70) 10*3/uL Eosinophils # 0.00 L (0.04-0.35) 10*3/uL Chloride 96 L (98-107) mmol/L Carbon Dioxide 33 H (22-30) mmol/L BUN 23 H (7-17) mg/dL Glucose 207 H (74-99) mg/dL POC Glucose (mg/dL) 210 H (70-110) mg/dL Microbiology - Last 24 Hours (Table) 07/07/24 11:55 Gram Stain - Final Sputum Sputum Culture - Final Neelima albicans Assessment and Plan Plan: Acute tracheobronchitis, no evidence of any pneumonia. Procalcitonin level is not elevated. CAT scan of the chest shows no airspace disease or consolidation. No significant leukocytosis. Sputum cultures positive for Neelima. Acute on chronic hypoxic respiratory failure, currently on 3 L of oxygen by nasal cannula History of tracheobronchomalacia, S/P tracheal surgery 2021. History of chronic bronchial asthma, maintained on a combination of Breztri and Tezspire on outpatient basis. Gastroesophageal reflux disease. History of hyperlipidemia. History of hypertension. History of obstructive sleep apnea syndrome. Diabetes mellitus. Obesity. Iron deficiency anemia. Postural orthostatic tachycardia syndrome. Multiple other medical problems and comorbidities. Plan: Fluctuating respiratory status with ups and downs and ongoing difficulties with bronchospasm wheezing and shortness of breath. Slightly improved compared to yesterday. Overall, remains bronchospastic and wheezy. Titrate oxygen flow to maintain saturation above 90% Continue DuoNeb updrafts Discontinue Symbicort and put the patient on Perforomist and Pulmicort nebulized treatments twice a day Continue IV Solu-Medrol 60 mg every 6 hours BiPAP support overnight pressures of 12/6 with an FiO2 of 40% Continue Diflucan Bronchoscopy for upper and lower airway inspection endobronchial lavage scheduled for today. The patient remains NPO. Time with Patient: Greater than 30
[2024-07-10] MEDS ORDERED: PROPOFOL 10 MG/ML 20 ML VIAL IV ONE (13:48)
[2024-07-10] MEDS ORDERED: LIDOCAINE 2% (PF) 20 MG/ML 5 ML VIAL ONE (13:48)
[2024-07-10] MEDS ORDERED: GLYCOPYRROLATE 0.2 MG/ML 2 ML VIAL ONE (13:48)
[2024-07-10] MEDS ORDERED: fentaNYL (PF) 50 MCG/ML 2 ML AMP ONE (13:48)
[2024-07-10] MEDS ORDERED: KETAMINE HCL IN 0.9 % NACL 50 MG/5 ML SYRINGE ONE (13:48)
[2024-07-10] MEDS ORDERED: MIDAZOLAM 2 MG/2 ML VIAL ONE (13:48)
[2024-07-10] MEDS: LACTATED RINGERS 1,000 ML IV ONE ×2 (13:56→14:14)
--- NOTE | 2024-07-10 15:01 | P.PCN ---
Date of Procedure: 07/10/24 Preoperative Diagnosis: Tracheobronchomalacia post tracheoplasty Postoperative Diagnosis: Diffuse tracheobronchitis, retained secretions in the lower lobes bilaterally. Trachea was widely patent without any ongoing dynamic collapsibility. No evidence of any tracheal stenosis. Procedure(s) Performed: Flexible bronchoscopy, bronchoalveolar lavage of the left lower lobe Anesthesia: MAC Surgeon: Parish Johnson Estimated Blood Loss (ml): 0 Pathology: other Condition: stable Disposition: floor Operative Findings: - This procedure was done in the endoscopy suite. A consent was signed. A timeout was performed. The procedure was done under conscious sedation, Where anesthetic agents was being administered by INTERNAL AFFAIRS INVESTIGATOR and staff anesthesiologist at the bedside. The patient was placed on a 10 L oxygen full facemask. The flexible bronchoscope was easily passed through the left nostril it was advanced into the posterior pharynx. Examination of the upper airway structures were done including pharynx and the larynx and those were within normal limits. The epiglottis, vallecula, arytenoids and the vocal cords were all within normal limits. The patient had normal vocal cord function and mobility. A total of 2 cc of 1% lidocaine was applied to the vocal cord and following that the bronchoscope was advanced into the upper trachea. Examination of the tracheobronchial tree was done. Noted the patient is post tracheoplasty for severe TBM. No evidence of any subglottic stenosis. No evidence of any significant ongoing tracheobronchomalacia. The bronchial mucosa was quite inflamed and there was diffuse mucosal inflammatory changes involving the trachea and bronchi bilaterally worse on the left. In addition, there was copious amount of creamy white respiratory secretions retained in the lung bases bilaterally. The secretions were easily suctioned out therapeutic airway suctioning was done. The visualized airways included entire trachea, bilateral mainstem bronchi, right upper lobe bronchus, bronchus intermedius and right middle lobe and the right lower lobe bronchus and the various 10 segments of the right in addition to the left upper lobe bronchus and the left lower lobe bronchus and the base segments on the left. After doing a therapeutic airway suctioning, a bronchoalveolar lavage of the left lower lobe was done. A total of 40 cc of saline was infused and 20 cc was aspirated without any major difficulties. The aspirate was nonbloody. The patient tolerated the procedure well. She did encounter some coughing. Nevertheless, there was no oxygen desaturation. The bronchoscope was removed and the patient was transferred to recovery in stable condition.
[2024-07-10 16:25] LABS: Glucose,Whole Blood 222 mg/dL (70-110)
[2024-07-10 20:12] LABS: Glucose,Whole Blood 280 mg/dL (70-110)
[2024-07-10] MEDS: INSULIN GLARGINE (LANTUS) 100 UNIT/ML SYR SQ SCH (21:14)
[2024-07-11 06:14] LABS: Glucose,Whole Blood 245 mg/dL (70-110)
[2024-07-11 11:38] LABS: Glucose,Whole Blood 217 mg/dL (70-110)
--- NOTE | 2024-07-11 15:51 | P.PN ---
Subjective Progress Note Date: 07/11/24 Subjective: Patient seen and examined at bedside. No acute events overnight. Patient still reports significant cough with sputum production. Denies chest pain, nausea or vomiting, belly pain, diarrhea, constipation, lower extremity swelling. Pertinent positives and negatives as discussed above, a complete review of systems was performed and all other systems are negative. Vitals Signs Reviewed. General: Nontoxic, no distress, appears at stated age, morbidly obese Derm: Warm, dry Head: Atraumatic, normocephalic, symmetric Eyes: EOMI, no lid lag, anicteric sclera Mouth: No lip lesion, mucus membranes moist, oral thrush with no significant erythema Cardiovascular: S1S2 reg, no murmur Lungs: Reduced breath sounds bilaterally, diffuse expiratory wheezing throughout all lung luev[place], supplemental oxygen Abdominal: Soft, nontender to palpation, no guarding, no appreciable organomega ly Ext: No gross muscle atrophy, no edema, no contractures Neuro: CN II-XI grossly intact, no focal neuro deficits Psych: Alert, oriented, appropriate affect Data Reviewed Today: Pertinent Labs: No updated labs from today Imaging: No new imaging Assessment and Plan: Active: Acute on chronic hypoxic respiratory failure Acute COPD exacerbation Bronchiectasis History of tracheomalacia Suspected acute tracheobronchitis History of asthma Leukocytosis, likely steroid-induced - Continue Pulmicort twice daily, Perforomist twice daily, continue with DuoNebs 4 times daily, every 4 hours as needed - Continue on Solu-Medrol IV 60 every 6 hours - Bronchoscopy on 07/10/2024 which showed diffuse tracheobronchitis, retained secretions in the lower lobes bilaterally. Trachea was widely patent without any ongoing dynamic collapsibility. No evidence of any tracheal stenosis. - Wean oxygen, BiPAP support if needed - Continue Singulair 10 mg daily - Pending cultures from bronchioloalveolar lavage Odontophagia Oral candidiasis - Continue fluconazole 150 mg daily Type 2 diabetes Hyperglycemia - Increase Lantus to 15 units nightly, continue sliding scale insulin and monitor for hypoglycemia Resolved: Hypokalemia Chronic: GERD Continue bismuth subsalicylate 524 mg Dyslipidemia Hypertension DVT ppx: Lovenox Code status: Full code Anticipated discharge place: Pending clinical course Anticipated discharge time: Pending clinical course I saw and evaluated the patient during the mitchell and critical portions of this encounter, and discussed the case in detail with the resident author of this note, I agree with the Assessment and Plan, and my changes, if any, are highlighted in blue. Objective - Vital Signs Vital signs: Vital Signs Temp 97.9 F 07/10/24 19:54 Pulse 77 07/11/24 04:30 Resp 18 07/11/24 04:30 BP 129/69 07/11/24 04:00 Pulse Ox 99 07/11/24 04:00 FiO2 40 07/11/24 04:21 Intake & Output 07/10/24 07/11/24 07/11/24 18:59 06:59 18:59 Intake Total 238 560 Balance 238 560 Weight 103 kg 105 kg Intake: IV 120 20 Invasive Line 3 20 20 Oral 118 540 Other: Voiding Method Toilet Toilet # Voids 2 - Labs CBC & Chem 7: 07/10/24 08:14 07/10/24 08:14 Labs: Abnormal Lab Results - Last 24 Hours (Table) 07/10/24 07/10/24 07/10/24 Range/Units 08:14 08:14 11:19 WBC 15.53 H (4.50-10.00) 10*3/uL MCH 26.3 L (27.0-32.0) pg Immature Gran # 0.26 H (0.00-0.04) 10*3/uL Neutrophils # 13.67 H (1.80-7.70) 10*3/uL Eosinophils # 0.00 L (0.04-0.35) 10*3/uL Chloride 96 L (98-107) mmol/L Carbon Dioxide 33 H (22-30) mmol/L BUN 23 H (7-17) mg/dL Glucose 207 H (74-99) mg/dL POC Glucose (mg/dL) 220 H (70-110) mg/dL 07/10/24 07/10/24 07/11/24 Range/Units 16:24 20:11 06:13 WBC (4.50-10.00) 10*3/uL MCH (27.0-32.0) pg Immature Gran # (0.00-0.04) 10*3/uL Neutrophils # (1.80-7.70) 10*3/uL Eosinophils # (0.04-0.35) 10*3/uL Chloride (98-107) mmol/L Carbon Dioxide (22-30) mmol/L BUN (7-17) mg/dL Glucose (74-99) mg/dL POC Glucose (mg/dL) 222 H 280 H 245 H (70-110) mg/dL
--- NOTE | 2024-07-11 16:17 | P.PN ---
Subjective Progress Note Date: 07/11/24 On 07/07/2024, the patient is being seen for a follow-up. Remains to have a congested cough. Limited sputum production. Remains to be hypoxic and the patient is currently in 60s of O2 nasal cannula. Sputum sample was collected earlier and the culture was positive for Neelima. The patient remains on DuoNeb nebulizer treatments [id number], she is on Symbicort and prednisone burst taper that was started yesterday. I suggested putting the patient back on IV Solu-Medrol. Remains on Spiriva. She is also having some increased edema lower extremities bilaterally. She will benefit from IV diuretics. Labs from yesterday showed a hemoglobin of 10.7, white cell count of 10.8, sodium is at 137, potassium is at 3.4, BUN is 50 with a creatinine of 0.7. Continues to have a congested cough. She has a BiPAP with a right-sided pressure of 12 or 6 with an FiO2 of 40%. On 07/08/2024, the patient is still coughing and she remains bronchospastic and wheezy. She was started back on IV Solu-Medrol yesterday. Minimal sputum production at this point in time. Afebrile. She remains on oxygen and she is on 3 L of O2 nasal cannula. She remains on Symbicort Solu-Medrol and DuoNeb updrafts. No altered mentation. The white cell count is 11 with a hemoglobin of 12 and a platelet count of 214. Electrolytes are all within normal limits, BUN is 20 and the creatinine is currently at 0.66. On 07/09/2024, the patient remains actively bronchospastic and wheezy. I do not see major improvement over the past 24 hours. The patient is having ups and downs in terms of her breathing. At times she feels better, all the time she has cough and worsening shortness of breath. Nevertheless, on examination, she continues to be active bronchospastic and wheezy. She remains on DuoNeb updrafts. She remains on a combination of Perforomist and Pulmicort nebulized treatments twice a day. She is also on IV Solu-Medrol 60 mg every 6 hours. No fever. No chills. Unable to bring up much of sputum. Most recent sputum analysis from 07/07/2024 was positive for Neelima and the patient is currently on Diflucan. Labs were also noted. White cell count at 17.9, hemoglobin 12.4 and a platelet count of 281. BUN is 25 with a creatinine of 0.8 and sodium levels at 138. On 07/10/2024, the patient is slightly improved and slightly less bronchospastic and wheezy compared to yesterday. She is currently n.p.o. and the patient is going to undergo a bronchoscopy for an upper and lower airway inspection. The patient is on DuoNeb. The patient is on Perforomist and Pulmicort nebulizer he was twice a day and the patient remains on IV Solu-Medrol. Lasix was discontinued. She remains on Lovenox for DVT prophylaxis. Blood work from today was noted. The white cell count is 15.5 with a heme of 12.3 and a platelet count of 285. Electrolytes show a serum bicarb of 33, BUN 23 with a creatinine of 0.9. LFTs are normal. She remains on oxygen and she is currently at 3 L/min nasal cannula. No altered mentation. No other new complaints otherwise for now. On 07/11/2024, the patient is post bronchoscopy and the patient is feeling better, cough and congestion has subsided since yesterday. A bronchial lavage of the lower lobe was done and the culture is still pending for now. She remains afebrile. Remains hemodynamically stable. Remains on DuoNeb updrafts. Remains on steroids and the patient is on IV Solu-Medrol 60 mg every 6 hours. The patient is also on a combination performance of Pulmicort neb regimen twice a day. No other significant events overnight. Oxygenation is stable and the p atdebra is currently on 3 L of oxygen by nasal cannula with a pulse ox of 95%. Labs are not available from today. Yesterday labs were reviewed. Awake and alert. Cough is gradually subsiding and the patient has no new complaints. Overall, she feels better. Objective - Vital Signs Vital signs: Vital Signs Temp 97.9 F 07/11/24 16:13 Pulse 79 07/11/24 16:13 Resp 19 07/11/24 16:13 BP 133/54 07/11/24 16:13 Pulse Ox 95 07/11/24 16:13 FiO2 40 07/11/24 15:15 Intake & Output 07/10/24 07/11/24 07/11/24 18:59 06:59 18:59 Intake Total 238 560 Output Total 1100 Balance 238 560 -1100 Weight 103 kg 105 kg Intake: IV 120 20 Invasive Line 3 20 20 Oral 118 540 Output: Urine 1100 Other: Voiding Method Toilet Toilet Toilet # Voids 2 3 - Exam No acute distress, oriented 3. Currently on nasal O2 at 3 L of oxygen by nasal cannula, obese with a BMI of 46.6 HEENT examination is grossly unremarkable. Mucous membranes are moist. No oral lesions. Neck supple. Full range of motion. No adenopathy thyromegaly or neck vein distention. Cardiovascular examination reveals regular rhythm rate. S1-S2 normal. No S3 or S4. No discernible murmur noted. Heart sounds are distant. Lungs reveal scattered bilateral rhonchi. Minimal expiratory wheezes. No crackles. Breath sounds equal bilaterally. No stridor. Abdomen soft bowel sounds are heard. No masses or tenderness. Extremities are intact. No cyanosis clubbing and there is +1 pitting edema lower extremities bilaterally. Skin is without rash or lesion. Neurologic examination is brief but nonfocal. - Labs CBC & Chem 7: 07/10/24 08:14 07/10/24 08:14 Labs: Abnormal Lab Results - Last 24 Hours (Table) 07/10/24 07/10/24 07/11/24 Range/Units 16:24 20:11 06:13 POC Glucose (mg/dL) 222 H 280 H 245 H (70-110) mg/dL 07/11/24 Range/Units 11:35 POC Glucose (mg/dL) 217 H (70-110) mg/dL Microbiology - Last 24 Hours (Table) 07/10/24 14:11 Acid Fast Bacilli Smear - Preliminary Bronchoalviolar Lavage - Left 07/10/24 14:11 Gram Stain - Preliminary Bronchoalviolar Lavage - Left Bronchial Washings Culture - Preliminary Assessment and Plan Plan: Acute tracheobronchitis, no evidence of any pneumonia. Procalcitonin level is not elevated. CAT scan of the chest shows no airspace disease or consolidation. No significant leukocytosis. Sputum cultures positive for Neelima. The patient is status post bronchoscopy. The patient was found to have evidence of diffuse tracheobronchitis, the patient is post tracheoplasty for severe tracheobronchomalacia. Mucous plugs were aspirated and the bronchoalveolar lavage was done and results are still pending for now. Clinically improving. Acute on chronic hypoxic respiratory failure, currently on 3 L of oxygen by nasal cannula History of tracheobronchomalacia, S/P tracheal surgery 2021. History of chronic bronchial asthma, maintained on a combination of Breztri and Tezspire on outpatient basis. Gastroesophageal reflux disease. History of hyperlipidemia. History of hypertension. History of obstructive sleep apnea syndrome. Diabetes mellitus. Obesity. Iron deficiency anemia. Postural orthostatic tachycardia syndrome. Multiple other medical problems and comorbidities. Plan: Clinically better post bronchoscopy. Awaiting the results of the bronchoalveolar lavage. Meanwhile, continue same treatment and transition the patient to a prednisone burst taper as of tomorrow Titrate oxygen flow to maintain saturation above 90% Continue DuoNeb updrafts Continue Perforomist and Pulmicort nebulized treatments twice a day Continue IV Solu-Medrol 60 mg every 6 hours for today BiPAP support overnight pressures of 12/6 with an FiO2 of 40% Continue Diflucan Case was discussed with the medical team. Will continue to follow. Time with Patient: Greater than 30
[2024-07-11 16:48] LABS: Glucose,Whole Blood 212 mg/dL (70-110)
[2024-07-11 20:04] LABS: Glucose,Whole Blood 243 mg/dL (70-110)
[2024-07-11] MEDS: LACTATED RINGERS 1,000 ML IV SCH (22:15)
[2024-07-12 06:02] LABS: Glucose,Whole Blood 192 mg/dL (70-110)
[2024-07-12 07:15] LABS: HCT 37.6 % (37.2-46.3); HGB 12.2 g/dL (12.0-15.0); MCH 26.3 pg (27.0-32.0); MCHC 32.4 g/dL (32.0-37.0); Mean Platelet Volume 10.7 fL (9.5-12.2); Platelet Count 256 10*3/uL (140-440); RBC 4.64 10*6/uL (4.10-5.20); RDW 14.8 % (11.5-14.5); WBC 16.98 10*3/uL (4.50-10.00)
[2024-07-12 07:48] LABS: ALT 27 U/L (4-34); AST 20 U/L (14-36); African American GFR (CKD) >90 (>60 ml/min/1.73 sqM); Albumin 4.3 g/dL (3.5-5.0); Alkaline Phosphatase 70 U/L (38-126); Anion Gap 10 mmol/L; Blood Urea Nitrogen 26 mg/dL (7-17); Calcium 9.6 mg/dL (8.4-10.2); Carbon Dioxide 29 mmol/L (22-30); Chloride 94 mmol/L (98-107); Glucose 188 mg/dL (74-99); Non-African American GFR(CKD) >90 (>60 ml/min/1.73 sqM); Potassium 3.8 mmol/L (3.5-5.1); Sodium 133 mmol/L (137-145); Total Bilirubin 0.6 mg/dL (0.2-1.3)
[2024-07-12] MEDS: POTASSIUM CHLORIDE ER 20 MEQ TAB.ER PO STA (08:45)
[2024-07-12 09:32] LABS: Metamyelocytes # (M) 0.17 k/uL (0); Metamyelocytes % 1 %; Monocytes # (M) 0.51 k/uL (0-1.0); Neutrophils % (M) 86 %; Nucleated Red Blood Cells 0 /100 WBC (0-0); Spherocytes Present; Total Cells Counted 200
[2024-07-12 11:38] LABS: Glucose,Whole Blood 147 mg/dL (70-110)
[2024-07-12] MEDS: predniSONE 20 MG TAB PO SCH (12:51)
[2024-07-12 12:56] VITALS: BP 136/75; PULSE 74; RESP 20; TEMP 98.7
--- NOTE | 2024-07-12 13:30 | P.DS ---
Providers Date of admission: 07/03/24 19:07 Expected date of discharge: 07/12/24 Attending physician: Nito Menchaca Consults: 07/03/24 19:03 Consult Physician Routine Consulting Provider: Parish Johnson Consult Reason/Comments: PNA Do you want consulting provider notified?: Yes, Notify in am 07/03/24 22:21 Consult Physician Routine Consulting Provider: Jaguar Villalobos Consult Reason/Comments: Vocal cord dysfunction Do you want consulting provider notified?: Yes Primary care physician: Joseph Kaba MD Hospital Course: Hospital course Patient is 59-year-old female past medical history of tracheomalacia, asthma presents today for shortness of breath. Patient states that her shortness of breath has progressively worsened over the last week, particularly over the last 3 days. She does endorse seeing pulmonology, and has been taking prednisone taper last week which she has now finished, and had chest x-ray done without signs of pneumonia. During this time she endorses a cough with thick green-hale sputum. This morning was blood-streaked. She wears oxygen at home intermittently 2 to 3 L as needed during the day and 4 L with CPAP at night. She does endorse some chills, without fever. She also has sore throat, runny nose which she attributes to worsening allergies over the last week. She also endorses palpitations, which are typically controlled with metoprolol however worse over this time period as well. Initial EKG in the ER showed sinus rhythm with ventricular rate of 87 bpm, QTc interval 442 ms, no obvious ST elevation or depression. Patient's chest x-ray showed mild infiltrates of the right base. Correlate for subsegmental atelectasis or developing pneumonia. Chest CTA on 07/03/2024 showed no acute PE, no acute pulmonary process, some mild asymmetry of the right vocal cord. Direct visualization recommended. Patient underwent a bronchoscopy with bronchoalveolar lavage on 07/11/2024 which showed tracheobronchomalacia and diffuse tracheobronchitis. Patient sputum cultures showed positive for Neelima albicans. Bronchoalveolar lavage sample showed no Staph aureus or Pseudomonas recovered. Patient's symptoms slightly improved over the course of hospitalization. Patient is medically stable to be discharged home 07/12/2024. Diflucan 150 mg daily for 7 days and prednisone taper were sent to pharmacy at [facility]. Patient will follow-up with her PCP and Dr. Johnson in 1 week after discharge. Physical exam GENERAL: This is a 59-year-old in no apparent distress at the time of examination. Pleasant and cooperative. HEENT: Head is atraumatic, normocephalic. Pupils are equal, round, and reactive to light. Sclerae anicteric. Conjunctivae are clear. Mucus membranes of the mouth are moist. Neck is supple. RESPIRATORY: Mild expiratory wheezing noted across lung [place]. No use of accessory muscles. No crackles, rales, rhonchi, stridor. CARDIOVASCULAR: Regular rate and rhythm. S1 and S2 noted. No systolic or diastolic murmur auscultated. No JVD noted. No S3 or S4 noted. GASTROINTESTINAL: No distention noted. Abdomen soft and round. Normal active bowel sounds auscultated x 4 quadrants. No pain or tenderness noted upon palpation. INTEGUMENTARY: No cyanosis. No jaundice. No rashes noted. No cellulitis noted. EXTREMITIES: 2+ peripheral pulses. No evidence of peripheral edema. No calf tend erness noted. NEUROLOGIC: Cranial nerves II-XII intact. PSYCHIATRIC: Awake, alert, and oriented X 3. Appropriate affect. Intact judgement and insight. Discharge diagnosis Acute on chronic hypoxic respiratory failure Acute COPD exacerbation Bronchiectasis History of tracheomalacia Tracheobronchitis History of asthma Odontophagia Oral candidiasis Type 2 diabetes GERD Dyslipidemia Hypertension Leukocytosis, likely steroid-induced I saw and evaluated the patient during the mitchell and critical portions of this encounter, and discussed the case in detail with the resident author of this note, I agree with the Assessment and Plan, and my changes, if any, are highlighted in blue. Patient Condition at Discharge: Stable Plan - Discharge Summary Discharge Rx Participant: Yes New Discharge Prescriptions: New Fluconazole [Diflucan] 150 mg PO DAILY 7 Days #7 tab predniSONE See Taper PO DAILY 20 Days #50 tab Continue Acetaminophen Tab [Tylenol] 1,000 mg PO Q6H PRN PRN Reason: Pain Docusate [Colace] 100 mg PO BID PRN PRN Reason: Constipation Tezepelumab-Ekko [Tezspire] 210 mg SQ Q28D guaiFENesin-Coden 100-10MG/5ML [Robitussin AC] 5 ml PO Q6HR PRN PRN Reason: Cough Montelukast [Singulair] 10 mg PO DAILY Ipratropium-Albuterol Nebulize [Duoneb 0.5 mg-3 mg/3 ml Soln] 3 ml INHALATION RT-QID Gabapentin [Neurontin] 100 mg PO BID PRN PRN Reason: Pain Albuterol Nebulized [Ventolin Nebulized] 2.5 mg INHALATION RT-QID PRN PRN Reason: Shortness Of Breath Albuterol Inhaler [Ventolin Hfa Inhaler] 2 puff INHALATION RT-QID PRN PRN Reason: Shortness Of Breath Sodium Chloride Nebulizer(Unknown Dose) 1 dose INHALATION DIRECTED PRN PRN Reason: Shortness Of Breath Acetylcysteine [Mucomyst 20%] 800 mg INHALATION RT-BID PRN PRN Reason: mucous Atorvastatin [Lipitor] 20 mg PO DAILY Benzocaine/Menthol [Cepacol Throat 15-3.6 mg Claire] 1 spray MM QID PRN PRN Reason: Sore Throat Benzocaine/Menthol Lozeng [Cepacol lozenge] 1 lozenge MM Q2H PRN PRN Reason: Sore Throat Cetirizine HCl [Zyrtec] 10 mg PO DAILY PRN PRN Reason: Allergy Symptoms Cyclobenzaprine [Flexeril] 10 mg PO TID PRN PRN Reason: Muscle Spasm guaiFENesin [Mucinex] 1,200 mg PO BID PRN PRN Reason: Congestion L.acidoph,Paracasei, B.lactis [Probiotic] 1 cap PO DAILY Metoprolol Succinate (ER) [Toprol XL] 50 mg PO DAILY Multivitamins, Thera [Multivitamin (formulary)] 1 tab PO DAILY Sennosides 17.2 mg PO BID PRN PRN Reason: Constipation Vitamin B Complex 1 cap PO DAILY Potassium Chloride ER [K-Dur 10] 10 meq PO BID PRN PRN Reason: w/lasix Promethaz-Cod 6.25-10 mg/5 ml [Phenergan with Codeine] 10 ml PO QID PRN PRN Reason: Cough Budesonide/Glycopyr/Formoterol [Breztri Aerosphere Inhaler] 2 puff INHALATION RT-BID Omeprazole 40 mg PO BID Furosemide [Lasix] 20 mg PO DAILY PRN PRN Reason: Edema HYDROcodone/APAP 10-325MG [[place] 10-325] 1 tab PO Q6HR PRN #28 tab PRN Reason: Pain Gluten Digestive Enzymes 2 tab PO AC-TID PRN PRN Reason: prior to gluten meals Azelastine HCl [Astepro Allergy] 2 spr EA NOSTRIL BID Calcium Carbonate [Tums] 1,000 - 2,000 mg PO QID PRN PRN Reason: Heartburn Cholecalciferol [Vitamin D3 (125 Mcg = 5000 Iu)] 125 mcg PO SA Dextromethorphan Polistirex [Delsym] 30 mg PO Q12H PRN PRN Reason: Cough Estrogens, Conjugated Cream [Premarin Vaginal Cream] 1 applic VAGINAL TUSA PRN PRN Reason: prolapsed urethra Fluticasone Nasal [place] [Flonase Nasal [place]] 1 spr EA NOSTRIL BID Inulin/Chromium Picolinate [Fiber Gummies Chew] 1 tab PO BID PRN PRN Reason: Constipation Nystatin 100,000 Unit/ml Susp [Mycostatin Oral Susp] 500,000 unit PO QID PRN PRN Reason: thrush Triamterene-Hctz 37.5-25Mg [Maxzide 37.5-25] 1 tab PO DAILY Gabapentin [Neurontin] 100 mg PO DAILY Discontinued predniSONE See Taper PO DAILY Discharge Medication List Acetaminophen Tab [Tylenol] 1,000 mg PO Q6H PRN 10/22/23 [History] Budesonide/Glycopyr/Formoterol [Breztri Aerosphere Inhaler] 2 puff INHALATION RT-BID 10/22/23 [History] Docusate [Colace] 100 mg PO BID PRN 10/22/23 [History] Tezepelumab-Ekko [Tezspire] 210 mg SQ Q28D 10/22/23 [History] Albuterol Inhaler [Ventolin Hfa Inhaler] 2 puff INHALATION RT-QID PRN 10/23/23 [History] Albuterol Nebulized [Ventolin Nebulized] 2.5 mg INHALATION RT-QID PRN 10/23/23 [History] Furosemide [Lasix] 20 mg PO DAILY PRN 10/23/23 [History] Gabapentin [Neurontin] 100 mg PO BID PRN 10/23/23 [History] Ipratropium-Albuterol Nebulize [Duoneb 0.5 mg-3 mg/3 ml Soln] 3 ml INHALATION RT-QID 10/23/23 [History] Montelukast [Singulair] 10 mg PO DAILY 10/23/23 [History] Omeprazole 40 mg PO BID 10/23/23 [History] guaiFENesin-Coden 100-10MG/5ML [Robitussin AC] 5 ml PO Q6HR PRN 10/23/23 [History] HYDROcodone/APAP 10-325MG [[place] 10-325] 1 tab PO Q6HR PRN #28 tab 10/26/23 [Rx] Acetylcysteine [Mucomyst 20%] 800 mg INHALATION RT-BID PRN 07/03/24 [History] Atorvastatin [Lipitor] 20 mg PO DAILY 07/03/24 [History] Azelastine HCl [Astepro Allergy] 2 spr EA NOSTRIL BID 07/03/24 [History] Benzocaine/Menthol Lozeng [Cepacol lozenge] 1 lozenge MM Q2H PRN 07/03/24 [History] Benzocaine/Menthol [Cepacol Throat 15-3.6 mg Claire] 1 spray MM QID PRN 07/03/24 [History] Calcium Carbonate [Tums] 1,000 - 2,000 mg PO QID PRN 07/03/24 [History] Cetirizine HCl [Zyrtec] 10 mg PO DAILY PRN 07/03/24 [History] Cholecalciferol [Vitamin D3 (125 Mcg = 5000 Iu)] 125 mcg PO SA 07/03/24 [History] Cyclobenzaprine [Flexeril] 10 mg PO TID PRN 07/03/24 [History] Dextromethorphan Polistirex [Delsym] 30 mg PO Q12H PRN 07/03/24 [History] Estrogens, Conjugated Cream [Premarin Vaginal Cream] 1 applic VAGINAL TUSA PRN 07/03/24 [History] Fluticasone Nasal [place] [Flonase Nasal [place]] 1 spr EA NOSTRIL BID 07/03/24 [History] Gabapentin [Neurontin] 100 mg PO DAILY 07/03/24 [History] Gluten Digestive Enzymes 2 tab PO AC-TID PRN 07/03/24 [History] Inulin/Chromium Picolinate [Fiber Gummies Chew] 1 tab PO BID PRN 07/03/24 [History] L.acidoph,Paracasei, B.lactis [Probiotic] 1 cap PO DAILY 07/03/24 [History] Metoprolol Succinate (ER) [Toprol XL] 50 mg PO DAILY 07/03/24 [History] Multivitamins, Thera [Multivitamin (formulary)] 1 tab PO DAILY 07/03/24 [History] Nystatin 100,000 Unit/ml Susp [Mycostatin Oral Susp] 500,000 unit PO QID PRN 07/03/24 [History] Sennosides 17.2 mg PO BID PRN 07/03/24 [History] Sodium Chloride Nebulizer(Unknown Dose) 1 dose INHALATION DIRECTED PRN 07/03/24 [History] Triamterene-Hctz 37.5-25Mg [Maxzide 37.5-25] 1 tab PO DAILY 07/03/24 [History] Vitamin B Complex 1 cap PO DAILY 07/03/24 [History] guaiFENesin [Mucinex] 1,200 mg PO BID PRN 07/03/24 [History] Potassium Chloride ER [K-Dur 10] 10 meq PO BID PRN 07/04/24 [History] Promethaz-Cod 6.25-10 mg/5 ml [Phenergan with Codeine] 10 ml PO QID PRN 07/04/24 [History] Fluconazole [Diflucan] 150 mg PO DAILY 7 Days #7 tab 07/12/24 [Rx] predniSONE See Taper PO DAILY 20 Days #50 tab 07/12/24 [Rx] Follow up Appointment(s)/Referral(s): Joseph Kaba MD [Primary Care Provider] - 1-2 days (please call and make follow-up appointment) Parish Johnson MD [STAFF PHYSICIAN] - 1 Week (please call and make follow-up appointment) Patient Instructions/Handouts: Prednisone (By mouth), Community Acquired Pneumonia (DC), Pneumonia (DC), Acute Respiratory Failure (GEN) Activity/Diet/Wound Care/Special Instructions: Please see your PCP and banking consultant Dr. Johnson in 1-2 weeks after discharge. Since you have been on diflucan during your hospitalization, please follow up with your PCP to check liver function. Discharge Disposition: HOME SELF-CARE
== END 2024-07-12 14:01 | disposition home or self-care (01) | DRG 190 ==
LOC: EC 15:16 → 3SCARD 19:07
PROVIDERS: ADMIT Student in an Organized Health Care Education/Training Program; ATTEND Student in an Organized Health Care Education/Training Program
PROC: 0BC68ZZ Extirpation of Matter from Right Lower Lobe Bronchus, Via Natural or Artificial Opening Endoscopic (ICD-10-PCS; principal; 2024-07-10 07:30)
PROC: 0BCB8ZZ Extirpation of Matter from Left Lower Lobe Bronchus, Via Natural or Artificial Opening Endoscopic (ICD-10-PCS; principal; 2024-07-10 07:30)
PROC: 0B9J8ZX Drainage of Left Lower Lung Lobe, Via Natural or Artificial Opening Endoscopic, Diagnostic (ICD-10-PCS; principal; 2024-07-10 07:30)
DX: J44.0 Chronic obstructive pulmonary disease with (acute) lower respiratory infection (principal); J96.21 Acute and chronic respiratory failure with hypoxia; B37.0 Candidal stomatitis; J47.0 Bronchiectasis with acute lower respiratory infection; J45.901 Unspecified asthma with (acute) exacerbation; G90.A Postural orthostatic tachycardia syndrome [POTS]; E11.65 Type 2 diabetes mellitus with hyperglycemia; E66.9 Obesity, unspecified; E03.9 Hypothyroidism, unspecified; D50.9 Iron deficiency anemia, unspecified; F32.A Depression, unspecified; I10 Essential (primary) hypertension; J44.1 Chronic obstructive pulmonary disease with (acute) exacerbation; Z79.4 Long term (current) use of insulin; J20.8 Acute bronchitis due to other specified organisms; R00.2 Palpitations; E78.5 Hyperlipidemia, unspecified; E87.6 Hypokalemia; E55.9 Vitamin D deficiency, unspecified; J98.09 Other diseases of bronchus, not elsewhere classified; F41.9 Anxiety disorder, unspecified; J38.3 Other diseases of vocal cords; T38.0X5A Adverse effect of glucocorticoids and synthetic analogues, initial encounter; D72.829 Elevated white blood cell count, unspecified; G47.30 Sleep apnea, unspecified; K21.9 Gastro-esophageal reflux disease without esophagitis; Z86.16 Personal history of COVID-19; Z79.899 Other long term (current) drug therapy; Z79.51 Long term (current) use of inhaled steroids; Z79.84 Long term (current) use of oral hypoglycemic drugs; Z98.890 Other specified postprocedural states; Z79.52 Long term (current) use of systemic steroids
CPT/HCPCS: 31624; 36415; 71045; 71275; 80048; 80053; 83036; 83735; 83880; 84145; 84484; 85025; 85610; 85730; 87040; 87070; 87102; 87116; 87205; 87206; 87449; 87636; 93005; 94640; 94644; 94660; 94760; 96365; 96366; 96367; 96372; 96375; 96376; 99291